=== PATIENT | female | born 1945 | race Caucasian/White ===

== ENCOUNTER → 2020-08-14 15:19 | Outpatient (BNVA) | payer MEDICARE, MEDICAID, SELFPAY | PROVIDERS: PCP Internal Medicine; Visit Provider Family Medicine Adult Medicine | DX: M47.814 Spondylosis without myelopathy or radiculopathy, thoracic region (principal); Z79.891 Long term (current) use of opiate analgesic | CPT/HCPCS: 99212 ==

== ENCOUNTER → 2020-09-23 12:47 | Outpatient (BNVA) | payer MEDICARE, MEDICAID, SELFPAY | PROVIDERS: PCP Internal Medicine; Referring Provider Internal Medicine; Visit Provider Family Medicine Adult Medicine | DX: M47.814 Spondylosis without myelopathy or radiculopathy, thoracic region (principal) | CPT/HCPCS: 99212 ==

== ENCOUNTER → 2020-10-21 13:00 | Outpatient (BNVA) | payer MEDICARE, MEDICAID, SELFPAY | PROVIDERS: PCP Internal Medicine; Visit Provider Family Medicine Adult Medicine | DX: M47.814 Spondylosis without myelopathy or radiculopathy, thoracic region (principal) | CPT/HCPCS: 99212 ==

== ENCOUNTER → 2020-12-09 14:47 | Outpatient (BNVA) | payer MEDICARE, MEDICAID, SELFPAY | PROVIDERS: PCP Internal Medicine; Visit Provider Family Medicine Adult Medicine | DX: M47.814 Spondylosis without myelopathy or radiculopathy, thoracic region (principal) | CPT/HCPCS: 99212 ==

== ENCOUNTER → 2021-01-13 12:55 | Outpatient (BNVA) | payer MEDICARE, MEDICAID, SELFPAY | PROVIDERS: PCP Internal Medicine; Visit Provider Family Medicine Adult Medicine | DX: M47.814 Spondylosis without myelopathy or radiculopathy, thoracic region (principal) | CPT/HCPCS: Q3014 ==

== ENCOUNTER → 2021-02-10 14:21 | Outpatient (BNVA) | payer MEDICARE, MEDICAID, SELFPAY | PROVIDERS: PCP Internal Medicine; Visit Provider Family Medicine Adult Medicine | DX: M47.814 Spondylosis without myelopathy or radiculopathy, thoracic region (principal); Z51.81 Encounter for therapeutic drug level monitoring | CPT/HCPCS: 99212 ==

== ENCOUNTER → 2021-02-12 13:43 | Outpatient (BNVA) | payer MEDICARE, MEDICAID, SELFPAY | PROVIDERS: PCP Internal Medicine; Visit Provider Internal Medicine Cardiovascular Disease | DX: I48.0 Paroxysmal atrial fibrillation (principal); F17.200 Nicotine dependence, unspecified, uncomplicated; Z79.899 Other long term (current) drug therapy; Z71.6 Tobacco abuse counseling | CPT/HCPCS: 93005; 99212 ==

== ENCOUNTER → 2021-02-17 14:04 | Outpatient (BNVA) | payer OTHER, MEDICAID, SELFPAY | PROVIDERS: PCP Internal Medicine; Visit Provider Family Medicine Adult Medicine | DX: Z13.89 Encounter for screening for other disorder (principal) | CPT/HCPCS: 99212 ==

== ENCOUNTER → 2021-02-26 16:55 | Outpatient (BNVA) | payer MEDICARE, MEDICAID, SELFPAY | PROVIDERS: PCP Internal Medicine; Visit Provider Family Medicine Adult Medicine | DX: M47.814 Spondylosis without myelopathy or radiculopathy, thoracic region (principal) | CPT/HCPCS: Q3014 ==

== ENCOUNTER 2021-03-04 17:30 | Outpatient (REF) | payer MEDICARE, MEDICAID, SELFPAY ==
--- NOTE | ~2021-03-04 | XR_ITS ---
EXAMINATION: XR KNEE, RIGHT CLINICAL INFORMATION: Local infection of the skin and subcutaneous tissues. COMPARISON: Right knee x-rays 05/25/2010 TECHNIQUE: Four views of the right knee. FINDINGS: Severe degenerative changes of the right knee with complete loss of medial joint space height, subchondral sclerosis, tricompartmental osteophytes and chondrocalcinosis. Tiny suprapatellar joint effusion suspected small loose body. No focal soft tissue swelling of the anterior knee. Vascular calcifications noted. XR/XR knee RT 4V IMPRESSION: -Severe degenerative changes of the right knee. -Small suprapatellar joint effusion with possible small loose body.
== END 2021-03-04 17:31 | disposition home or self-care (01) ==
LOC: HO.HMGCX 17:30
PROVIDERS: PCP Internal Medicine; Visit Provider Nurse Practitioner Family
DX: L08.9 Local infection of the skin and subcutaneous tissue, unspecified (principal)
CPT/HCPCS: 73564

== ENCOUNTER → 2021-03-18 14:56 | Outpatient (BNVA) | payer MEDICARE, MEDICAID, SELFPAY | PROVIDERS: PCP Internal Medicine; Visit Provider Nurse Practitioner Family | DX: M47.814 Spondylosis without myelopathy or radiculopathy, thoracic region (principal); M17.11 Unilateral primary osteoarthritis, right knee | CPT/HCPCS: 99212 ==

== ENCOUNTER 2021-03-30 08:18 | Outpatient (REF) | payer MEDICARE, MEDICAID, SELFPAY ==
--- NOTE | ~2021-03-30 | XR_ITS ---
EXAMINATION: XR KNEE AP STANDING CLINICAL INFORMATION: Bilateral knee pain. COMPARISON: None TECHNIQUE: AP bilateral standing view of the knees was obtained. FINDINGS: There is severe loss of medial and moderate loss of lateral compartment joint space both knees. There is chondrocalcinosis of medial and lateral menisci. No loose body seen. There is periarticular spurring in the medial compartments both knees. Mild genu varus deformity of both knees is noted slightly greater on the right side. The soft tissues are normal. XR/XR knee standing BI IMPRESSION: Severe medial and moderate lateral compartment degenerative arthritic changes both knees. Chondrocalcinosis.
== END 2021-03-30 08:19 | disposition home or self-care (01) ==
LOC: HO.HOSX 08:18
PROVIDERS: Visit Provider Orthopaedic Surgery
DX: M25.561 Pain in right knee (principal); M17.11 Unilateral primary osteoarthritis, right knee; L98.9 Disorder of the skin and subcutaneous tissue, unspecified
CPT/HCPCS: 20610; 73565; 99202; J1100

== ENCOUNTER 2021-04-09 11:12 | Outpatient (REF) | payer MEDICARE, MEDICAID, SELFPAY ==
--- NOTE | ~2021-04-09 | US_ITS ---
EXAMINATION: US COMPLETE ABDOMEN WITH LIVER ELASTOGRAPHY CLINICAL INFORMATION: Abdominal pain COMPARISON: Previous abdominal ultrasound June [address] January 2019 TECHNIQUE: Real-time imaging of the abdominal viscera. Noninvasive ultrasound liver fibrosis assessment is performed using April ElastPQ point quantification shear wave elastography (pSWE) with a C5-2 MHz transducer. Multiple elastography samples are obtained. FINDINGS: PANCREAS: Not well visualized due to bowel gas ABDOMINAL AORTA: The proximal, middle, and distal aortic segments are normal in caliber. INFERIOR VENA CAVA: Visualized portions are normal. LIVER: Normal. The liver demonstrates normal size, contour and echogenicity. No focal lesion or intrahepatic biliary duct dilatation. The right lobe measures 12.2 cm in length. The left lobe measures 7.6 cm in length. Portal flow is normal/hepatopedal Shear wave liver elastography median stiffness is 1.5 m/s (reference: normal median stiffness is 1.3 m/s or less). IQR/median stiffness to assess sampling precision is 0.05 (reference: good quality data set is IQR/median stiffness of 0.15 or less). GALLBLADDER: Normal. The gallbladder is physiologically distended without evidence of stones, sludge, polyps, wall thickening or pericholecystic fluid. COMMON BILE DUCT: Normal in caliber measuring 0.2 cm in diameter. RIGHT KIDNEY: Normal. No hydronephrosis. No renal calculi or focal parenchymal lesions. The kidney measures 9.6 cm in maximum dimension. LEFT KIDNEY: Normal. No hydronephrosis. No renal calculi or focal parenchymal lesions. The kidney measures 10.5 cm in maximum dimension. SPLEEN: Normal. The spleen measures 7.4 cm in maximum dimension. FREE FLUID: None. US/US abdomen comp w elastography IMPRESSION: 1. Impression: Limited visualization of the pancreas otherwise unremarkable exam 2. Liver elastography: Adequate liver sampling. In the absence of other known clinical signs, rules out compensated advanced chronic liver disease. REFERENCE: Society of Radiologists in Ultrasound Liver Stiffness Thresholds (2020): LIVER STIFFNESS THRESHOLDS: *Liver Stiffness equal or less than 1.3 m/s: High probability of being normal. *Liver Stiffness less than 1.7 m/s: In the absence of other known clinical signs, rules out compensated advanced chronic liver disease. *Liver Stiffness 1.7-2.1 m/s: Suggestive of compensated advanced chronic liver disease but need further test for confirmation. *Liver Stiffness over 2.1 m/s: Rules in compensated advanced chronic liver disease. *Liver Stiffness over 2.4 m/s: Suggestive of clinically significant portal hypertension. QUALITY OF DATA SET: *IQR/Median value equal or less than 0.15 implies a quality data set. *IQR/Median value over 0.15 implies a poor quality data set. SIGNIFICANT CHANGE FROM PRIOR EXAM: Significant change if liver stiffness measurement is 10% or greater from prior exam. OTHER CONSIDERATIONS: The stage of liver fibrosis may be overestimated in the setting of acute hepatitis, liver inflammation, elevated liver function tests, hepatic vascular congestion, obstructive cholestasis, non-fasting state, and infiltrative diseases such as amyloidosis and lymphoma. In some patients with NAFLD, the liver stiffness thresholds for compensated advanced chronic liver disease may be lower. In causes other than viral hepatitis and NAFLD, liver stiffness thresholds are not well established.
== END 2021-04-09 11:13 | disposition home or self-care (01) ==
LOC: HO.US 11:12
PROVIDERS: PCP Internal Medicine; Visit Provider Internal Medicine
DX: R10.9 Unspecified abdominal pain (principal)
CPT/HCPCS: 76705; 76981

== ENCOUNTER → 2021-04-21 11:11 | Outpatient (BNVA) | payer MEDICARE, MEDICAID, SELFPAY | PROVIDERS: PCP Internal Medicine; Visit Provider Family Medicine Adult Medicine | DX: M47.814 Spondylosis without myelopathy or radiculopathy, thoracic region (principal); M17.11 Unilateral primary osteoarthritis, right knee | CPT/HCPCS: 99212 ==

== ENCOUNTER → 2021-05-19 14:12 | Outpatient (BNVA) | payer MEDICARE, MEDICAID, SELFPAY | PROVIDERS: PCP Internal Medicine; Visit Provider Family Medicine Adult Medicine | DX: M47.814 Spondylosis without myelopathy or radiculopathy, thoracic region (principal); M17.11 Unilateral primary osteoarthritis, right knee | CPT/HCPCS: 99212 ==

== ENCOUNTER 2021-06-03 | Outpatient (REF) | payer MEDICARE, MEDICAID, SELFPAY ==
[2021-06-03 12:10] LABS: Hematocrit 44.7 % (37-47); Hemoglobin 14.5 g/dl (12.0-16.0); Mean Corpuscular HGB Conc 32.4 g/dl (31.0-35.0); Mean Corpuscular Hemoglobin 30.3 pg (27.0-33.0); Mean Corpuscular Volume 93.5 fL (80-98); Mean Platelet Volume 11.3 fL (9.4-12.3); Platelet Count 241 X10*3/uL (160-400); Red Blood Count 4.78 X10*6/uL (4.20-5.50); Red Cell Distribution Width 12.3 % (11.0-16.0); White Blood Count 9.1 X10*3/uL (4.8-10.8)
[2021-06-03 12:49] LABS: Alanine Aminotransferase 14 U/L (0-31); Albumin Level 4.1 g/dL (3.5-5.0); Alkaline Phosphatase 95 U/L (39-117); Anion Gap 13 (12-20); Aspartate Amino Transferase 20 U/L (5-31); Bilirubin Total 0.5 mg/dL (0.0-1.0); Blood Urea Nitrogen 18 mg/dL (9-16); Calcium 9.7 mg/dL (8.4-10.2); Carbon Dioxide 27 mmol/L (22-29); Chloride 104 mmol/L (96-108); Cholesterol 142 mg/dL; Estimated Glomerular Filt Rate 54; Glucose Fasting 105 mg/dL (60-99); HDL Cholesterol 55 mg/dL; LDL Cholesterol Calculated 74 mg/dl; Lipase 15 U/L (8-78); Potassium 4.7 mmol/L (3.3-5.1); Sodium 139 mmol/L (135-145); Total Protein 6.8 g/dL (6.5-8.0); Triglycerides 67 mg/dL
== END 2021-06-03 00:01 ==
LOC: HO.LAB
PROVIDERS: Absent Provider Internal Medicine Cardiovascular Disease; PCP Internal Medicine; Visit Provider Internal Medicine
DX: E78.5 Hyperlipidemia, unspecified (principal); R10.9 Unspecified abdominal pain; I48.0 Paroxysmal atrial fibrillation; M17.11 Unilateral primary osteoarthritis, right knee
CPT/HCPCS: 36415; 80053; 80061; 83690; 85027

== ENCOUNTER → 2021-06-09 13:46 | Outpatient (BNVA) | payer MEDICARE, MEDICAID, SELFPAY | PROVIDERS: PCP Internal Medicine; Visit Provider Internal Medicine | DX: J44.9 Chronic obstructive pulmonary disease, unspecified (principal); F17.210 Nicotine dependence, cigarettes, uncomplicated | CPT/HCPCS: 99212 ==

== ENCOUNTER 2021-06-14 21:39 | Emergency (ER) | payer MEDICARE, MEDICAID, SELFPAY ==
--- NOTE | ~2021-06-14 | XR_ITS ---
EXAMINATION: XR ELBOW, RIGHT CLINICAL INFORMATION: Fall COMPARISON: None TECHNIQUE: Four views of the right elbow. XR/XR elbow RT min 3V FINDINGS/IMPRESSION: There is extensive destruction, disorganization and debris of the elbow joint with markedly abnormal lateral humeral epicondyles, proximal ulna and proximal radius with bulky marginal osteophytes and extensive heterotopic ossification. Given the extent of the disorganization and debris, possibility of an acute fracture would be difficult to exclude. Joint effusion present. Extensive soft tissue swelling about the elbow joint.
[2021-06-14 21:59] VITALS: BP 131/85; PULSE 51; RESP 16; TEMP 37.3; O2SAT 97; BMI 20.5
--- NOTE | 2021-06-14 22:21 | ED_ITS ---
HPI - Extremity Problem General Chief complaint: Extremity Injury, Upper Stated complaint: arm inj Time Seen by Provider: 06/14/21 22:07 Source: patient and family Mode of arrival: ambulatory Limitations: no limitations History of Present Illness HPI Narrative: Apparently patient fell while going up stairs hitting her right elbow to the railing 2 days ago since then having crease pain and swelling with the superficial laceration at the elbow. Her daughter brought to the ER for increased swelling and pain patient takes oxycodone at home for chronic arthritis patient does not remember whether she had right elbow fracture before or not but not been operated and it was functional without any limitation of range of movement no other injuries no head injury no loss of conscious patient not on any blood thinners Related Data Home Medications Medication Instructions Recorded Confirmed hydrocortisone 2.5 % topical cream applic TOPICAL 08/14/20 05/21/21 ketoconazole 2 % shampoo TOPICAL 08/14/20 05/21/21 flecainide 100 mg tablet 100 mg PO Q12H tab 02/12/21 05/21/21 hydroxyzine HCl 25 mg tablet 25 mg PO PRN tab 02/12/21 05/21/21 propranolol 60 mg capsule,24 60 mg PO DAILY cap 02/12/21 05/21/21 hr,extended release tiotropium bromide 18 mcg capsule 1 cap INHALATION DAILY 03/18/21 05/21/21 with inhalation device Previous Rx's Medication Instructions Recorded naloxone 4 mg/actuation nasal 4 mg INTRANASAL Q2M 1 Days #2 ea 12/09/20 spray (Narcan) fluticasone furoate 100 1 ea INHALATION DAILY #180 ea 04/08/21 mcg-vilanterol 25 mcg/dose inhalation powder (Breo Ellipta) mupirocin 2 % topical ointment 1 appl TOPICAL TID 14 Days #15 g 05/18/21 oxycodone 10 mg tablet 10 mg PO Q6H PRN 30 Days #120 tab 05/19/21 alprazolam 0.5 mg tablet 0.5 mg PO TID PRN 30 Days #90 tab 05/29/21 cephalexin 500 mg capsule 500 mg PO QID 10 Days #40 cap 06/14/21 Allergies Allergy/AdvReac Type Severity Reaction Status Date / Time succinylcholine Allergy Severe EXCESSIVE Verified 06/14/21 22:05 [SUCCINYLCHOLINE] PARALYSIS tramadol Allergy Intermediate diarrhea, Verified 06/14/21 22:05 upset stomach cat dander [CATS] Allergy Mild UNKNOWN Verified 06/14/21 22:05 dog dander [DOGS] Allergy Mild UNKNOWN Verified 06/14/21 22:05 pollen extracts [POLLEN] Allergy Mild UNKNOWN Verified 06/14/21 22:05 DUST Allergy Mild UNKNOWN Uncoded 06/14/21 22:05 Review of Systems Review of Systems: Yes all other systems are reviewed and are negative [facility] Past Medical History Medical History Abdominal pain Anxiety COPD (chronic obstructive pulmonary disease) COPD exacerbation Knee pain Left knee pain Neurodermatitis Osteoarthritis of thoracic spine Paroxysmal atrial fibrillation Scalp abscess Skin lesion Smoker Vaginal discharge Surgical History History of bilateral cataract extraction History of ectopic History of hip replacement History of nasal surgery Mammogram declined Family History Family History Father No problems noted. Mother No problems noted. Social History Social History Housing: Apartment Alcohol intake: unknown Patient Tobacco Use Status: Current everyday Tobacco user Tobacco use type: Cigarette Cigarettes Per Day: 8 e-Cigarette/Vaping Use: Never Used Second Hand Smoke Exposure: No Use of substances other than those prescribed or required for medical reasons: Unknown Advance Directives: No Advance Directives Information Provided: No service: No Current occupational status: retired and disabled Physical Exam Vital Signs: Vital Signs: Last Vital Signs Temp 99.1 F 06/14/21 21:59 Pulse 51 06/14/21 21:59 Resp 16 06/14/21 21:59 BP 131/85 06/14/21 21:59 Pulse Ox 97 06/14/21 21:59 Body Mass Index 20.5 Const: General: in distress mild Nutritional Appearance: thin Orientation/consciousness: patient oriented x3 HENMT: Head: Yes normocephalic and Yes atraumatic Ears: hearing grossly n ormal bilaterally Eyes: General: appearance normal, both eyes and all related structures Chest: Chest palpation & inspection: normal inspection of the chest and normal palpation of entire chest wall Resp: Effort & Inspection: normal respiratory effort Auscultation: clear to auscultation bilaterally Cardio: Rate: regular rate Rhythm: regular rhythm Heart sounds: S1 normal heart sound present and S2 normal heart sound present Peripheral pulses: Peripheral pulses 2+ throughout GI: Inspection: Yes normal to inspection Palpation (GI): Soft to palpation and nontender Back/Spine/Pelvis: Cervical Spine: normal cervical lordosis and cervical ROM normal Thoracic/Lumbar Spine: No thoracic spinal tenderness and No lumbar spinal tenderness Skin: General skin exam: no rashes or lesions noted Neuro: General: patient oriented x3, gait normal and no focal motor deficits Extrem: Shoulder/upper arm images: 1. Gross deformity of right elbow joint with swelling and slight erythema painful flexion and extension neurovascular intact 2. Flap laceration right elbow 5 cm MDM - Extremity (Nontraumatic) MDM Narrative Medical decision making narrative: Patient with right elbow fracture with extensive destruction drowsy denies and debris of the elbow patient denies any s ignificant pain prior to the fall and according to her this injury seems to be new . Case discussed with orthopedic PA who discussed the case with Dr. Henson who saw the x-ray according to him patient was not needed surgical intervention at this time will follow-up as outpatient posterior arm splint was applied and patient discharged home Lab Data Attestation: I reviewed the patient's lab results. Result diagrams: 06/14/21 22:48 06/14/21 22:48 Labs: Lab Results 06/14/21 06/14/21 06/14/21 Range/Units 22:48 22:48 22:48 WBC 12.5 H (4.8-10.8) X10*3/uL RBC 4.78 (4.20-5.50) X10*6/uL Hgb 14.6 (12.0-16.0) g/dl Hct 43.1 (37-47) % MCV 90.2 (80-98) fL MCH 30.5 (27.0-33.0) pg MCHC 33.9 (31.0-35.0) g/dl RDW 12.2 (11.0-16.0) % Plt Count 191 (160-400) X10*3/uL MPV 10.7 (9.4-12.3) fL Immature Gran % (Auto) 0.6 H (0.0-0.4) % Neut % (Auto) 68.0 (45-73) % Lymph % (Auto) 12.8 L (20-40) % [place] % (Auto) 18.3 H (2-11) % Eos % (Auto) 0.1 (0-4) % Baso % (Auto) 0.2 (0-2) % Lymph # (Auto) 1.6 (1.2-4.9) X10*3/uL [place] # (Auto) 2.3 H (0.1-1.2) X10*3/uL Eos # (Auto) 0.0 (0.0-0.4) X10*3/uL Baso # (Auto) 0.0 (0.0-0.2) X10*3/uL Abs Immat Gran (auto) 0.07 H (0.00-0.03) X10*3/uL Absolute Neuts (auto) 8.5 H (2.0-8.3) X10*3/uL Absolute Nucleated RBC 0.000 (0.0-0.012) X10*3/uL Nucleated RBC % (auto) 0.0 (0.0-0.2) /100WBC Smear Tech's Comments VERIFIED PT 22.4 H (9.9-13.0) SEC INR 1.9 H (0.9-1.1) APTT 41.0 H (24.1-38.0) SEC Sodium 130 L (135-145) mmol/L Potassium 3.7 D (3.3-5.1) mmol/L Chloride 93 L (96-108) mmol/L Carbon Dioxide 25 (22-29) mmol/L Anion Gap 16 (12-20) BUN 18 H (9-16) mg/dL Creatinine 0.79 (0.5-1.4) mg/dL Estim Creat Clear Calc 55.0 Estimated GFR > 60 Random Glucose 80 (60-115) mg/dL Calcium 9.5 (8.4-10.2) mg/dL Imaging Data Right elbow: Radiologist's impression: Patient: Yamileth Sandoval MR#: [id number] : 1945 Acct:[id number] Age/Sex: 75 / F ADM Date: 06/14/21 Loc: HO.ED Attending Dr: Ordering Physician: Byron Conte MD Date of Service: 06/14/21 Procedure(s): XR elbow RT min 3V Accession Number(s): [id number] cc: Byron Conte MD~ EXAMINATION: XR ELBOW, RIGHT CLINICAL INFORMATION: Fall? COMPARISON: None? TECHNIQUE: Four views of the right elbow. XR/XR elbow RT min 3V FINDINGS/IMPRESSION: There is extensive destruction, disorganization and debris of the elbow joint with markedly abnormal lateral humeral epicondyles, proximal ulna and proximal radius with bulky marginal osteophytes and extensive heterotopic ossification. Given the extent of the disorganization and debris, possibility of an acute fracture would be difficult to exclude. Joint effusion present. Extensive soft tissue swelling about the elbow joint.? ? Dictated By: COURT ORTIZ MD Signed By: <Electronically signed by COURT Gilbert Procedures Laceration Laceration 1: Site: upper extremity Side (If applicable): right Size (cm): 5 Description: flap Depth: simple, single layer Pre-repair: deep structures intact Skin layer closed with: other (Steri-Strips) Orthopedic Splinting/Casting Injury #1: Side: right Upper Extremity Injury Location: elbow Upper Extremity Immobilizer: posterior splint Discharge Plan Discharge Clinical Impression: Elbow fracture, right Patient Disposition: Home, Self-Care Instructions: Elbow Fracture (ED) Additional Instructions: Keep your right arm in splint as provided Pain medication as advised See orthopedics in 2 -3 days for further evaluation Take antibiotic for wound infection Prescriptions: New cephalexin 500 mg capsule 500 mg PO QID 10 Days Qty: 40 RF: 0 No Action fluticasone furoate-vilanterol [Breo Ellipta] 100-25 mcg/dose blister with device 1 ea inhalation DAILY Qty: 180 RF: 3 mupirocin 2 % ointment 1 appl topical TID 14 Days Qty: 15 RF: 2 alprazolam 0.5 mg tablet 0.5 mg PO TID PRN (Reason: anxiety) 30 Days Qty: 90 RF: 0 hydrocortisone 2.5 % cream topical RF: 0 ketoconazole 2 % shampoo topical RF: 0 flecainide 100 mg tablet 100 mg PO Q12H RF: 0 hydroxyzine HCl 25 mg tablet 25 mg PO PRNRF: 0 propranolol 60 mg capsule,extended release 24 hr 60 mg PO DAILY RF: 0 tiotropium bromide 18 mcg capsule, w/inhalation device 1 cap inhalation DAILY RF: 0 Narcan 4 mg/actuation spray,non-aerosol 4 mg intranasal Q2M 1 Days Qty: 2 RF: 1 oxycodone 10 mg tablet 10 mg PO Q6H PRN (Reason: pain) 30 Days Qty: 120 RF: 0 Referrals: Zev Henson MD [Physician] - 3 days Interventions: ED Discharge Assessment Last Done: 06/15/21 00:03 Discharge Date/Time: 06/15/21 00:13
--- NOTE | 2021-06-14 22:33 | ECG_ITS ---
Test Reason : AFIB Blood Pressure : / mmHG Vent. Rate : 058 BPM Atrial Rate : 058 BPM P-R Int : 172 ms QRS Dur : 104 ms QT Int : 490 ms P-R-T Axes : 068 052 074 degrees QTc Int : 481 ms Sinus bradycardia Biatrial enlargement Nonspecific ST abnormality Abnormal ECG When compared with ECG of 20-AUG-2019 20:32, Sinus bradycardia has replaced Atrial flutter Heart rate has decreased Referred By: Byron Conte Electronically Signed By:VINCENZO FINN
[2021-06-14 22:53] LABS: Basophils Percent Auto 0.2 % (0-2); Eosinophils Percent Auto 0.1 % (0-4); Hematocrit 43.1 % (37-47); Hemoglobin 14.6 g/dl (12.0-16.0); Imm Gran Abs Auto 0.07 X10*3/uL (0.00-0.03); Imm Gran Pct Auto 0.6 % (0.0-0.4); Lymphocytes Absolute Auto 1.6 X10*3/uL (1.2-4.9); Lymphocytes Percent Auto 12.8 % (20-40); MANUAL DIFF FLAG SCAN; Mean Corpuscular HGB Conc 33.9 g/dl (31.0-35.0); Mean Corpuscular Hemoglobin 30.5 pg (27.0-33.0); Mean Corpuscular Volume 90.2 fL (80-98); Mean Platelet Volume 10.7 fL (9.4-12.3); Monocytes Absolute Auto 2.3 X10*3/uL (0.1-1.2); Monocytes Percent Auto 18.3 % (2-11); Neutrophils Absolute Auto 8.5 X10*3/uL (2.0-8.3); Platelet Count 191 X10*3/uL (160-400); Red Blood Count 4.78 X10*6/uL (4.20-5.50); Red Cell Distribution Width 12.2 % (11.0-16.0); SCAN SMEAR FLAG 1; White Blood Count 12.5 X10*3/uL (4.8-10.8)
[2021-06-14 22:59] LABS: INTERNATIONAL NORM RATIO 1.9 (0.9-1.1); Prothrombin Time 22.4 SEC (9.9-13.0)
[2021-06-14 23:10] LABS: SLIDE REVIEW VERIFIED
[2021-06-14] MEDS: oxyCODONE HCl Immed Release 5 MG TABLET 10 MG PO (23:19)
[2021-06-14] MEDS: cephALEXin 500 MG CAPSULE PO (23:20)
[2021-06-14 23:21] LABS: Anion Gap 16 (12-20); Blood Urea Nitrogen 18 mg/dL (9-16); Calcium 9.5 mg/dL (8.4-10.2); Carbon Dioxide 25 mmol/L (22-29); Chloride 93 mmol/L (96-108); Estimated Glomerular Filt Rate > 60; Glucose Random 80 mg/dL (60-115); Potassium 3.7 mmol/L (3.3-5.1); Sodium 130 mmol/L (135-145)
== END 2021-06-15 00:13 | disposition home or self-care (01) ==
PROVIDERS: Emergency Provider Internal Medicine; PCP Internal Medicine
DX: S42.401A Unspecified fracture of lower end of right humerus, initial encounter for closed fracture (principal); S51.011A Laceration without foreign body of right elbow, initial encounter; M25.521 Pain in right elbow; W01.0XXA Fall on same level from slipping, tripping and stumbling without subsequent striking against object, initial encounter; Y93.9 Activity, unspecified; Y92.9 Unspecified place or not applicable; Y99.9 Unspecified external cause status
CPT/HCPCS: 12002; 29105; 36415; 73080; 80048; 85025; 85610; 85730; 93005; 99284

== ENCOUNTER → 2021-06-19 13:38 | Outpatient (BNVA) | payer MEDICARE, MEDICAID, SELFPAY | PROVIDERS: PCP Internal Medicine; Visit Provider Physician Assistant | DX: S50.01XA Contusion of right elbow, initial encounter (principal); S51.011A Laceration without foreign body of right elbow, initial encounter | CPT/HCPCS: 99202 ==

== ENCOUNTER → 2021-06-23 13:27 | Outpatient (BNVA) | payer MEDICARE, MEDICAID, SELFPAY | PROVIDERS: PCP Internal Medicine; Visit Provider Nurse Practitioner Family | DX: Z51.81 Encounter for therapeutic drug level monitoring (principal); S50.01XA Contusion of right elbow, initial encounter; M17.11 Unilateral primary osteoarthritis, right knee; M47.814 Spondylosis without myelopathy or radiculopathy, thoracic region | CPT/HCPCS: 99212 ==

== ENCOUNTER → 2021-06-26 13:34 | Outpatient (BNVA) | payer MEDICARE, MEDICAID, SELFPAY | PROVIDERS: PCP Internal Medicine; Visit Provider Physician Assistant | DX: S51.011A Laceration without foreign body of right elbow, initial encounter (principal); S50.01XA Contusion of right elbow, initial encounter | CPT/HCPCS: 99212 ==

== ENCOUNTER 2021-06-29 14:24 | Outpatient (RCR) | payer MEDICARE, MEDICAID, SELFPAY | END 2021-07-01 15:47 | disposition home or self-care (01) | LOC: HO.WCC 14:24 | PROVIDERS: PCP Internal Medicine; Visit Provider Physician Assistant | DX: Q85.00 Neurofibromatosis, unspecified (principal); F17.210 Nicotine dependence, cigarettes, uncomplicated | CPT/HCPCS: 99212 ==

== ENCOUNTER → 2021-07-14 10:31 | Outpatient (BNVA) | payer MEDICARE, SELFPAY | PROVIDERS: PCP Internal Medicine; Visit Provider Internal Medicine | DX: J44.1 Chronic obstructive pulmonary disease with (acute) exacerbation (principal); F17.200 Nicotine dependence, unspecified, uncomplicated | CPT/HCPCS: 99212 ==

== ENCOUNTER → 2021-07-22 11:23 | Outpatient (BNVA) | payer MEDICARE, SELFPAY | PROVIDERS: PCP Internal Medicine; Visit Provider Anesthesiology | DX: Z51.81 Encounter for therapeutic drug level monitoring (principal); M47.814 Spondylosis without myelopathy or radiculopathy, thoracic region; M17.11 Unilateral primary osteoarthritis, right knee | CPT/HCPCS: 99212 ==

== ENCOUNTER 2021-08-05 10:12 | Outpatient (REF) | payer MEDICARE, SELFPAY ==
[2021-08-05 11:59] LABS: MANUAL DIFF FLAG NO
[2021-08-05 12:11] LABS: INTERNATIONAL NORM RATIO 1.3 (0.9-1.1); Prothrombin Time 15.3 SEC (9.9-13.0)
[2021-08-05 12:16] LABS: Basophils Percent Auto 0.5 % (0-2); Eosinophils Absolute Auto 0.2 X10*3/uL (0.0-0.4); Eosinophils Percent Auto 2.8 % (0-4); Hematocrit 41.3 % (37-47); Hemoglobin 13.5 g/dl (12.0-16.0); Imm Gran Abs Auto 0.01 X10*3/uL (0.00-0.03); Imm Gran Pct Auto 0.2 % (0.0-0.4); Lymphocytes Absolute Auto 1.9 X10*3/uL (1.2-4.9); Lymphocytes Percent Auto 32.2 % (20-40); Mean Corpuscular HGB Conc 32.7 g/dl (31.0-35.0); Mean Corpuscular Hemoglobin 29.5 pg (27.0-33.0); Mean Corpuscular Volume 90.2 fL (80-98); Mean Platelet Volume 10.5 fL (9.4-12.3); Monocytes Absolute Auto 0.7 X10*3/uL (0.1-1.2); Monocytes Percent Auto 11.4 % (2-11); Neutrophils Absolute Auto 3.1 X10*3/uL (2.0-8.3); Neutrophils Percent Auto 52.9 % (45-73); Platelet Count 247 X10*3/uL (160-400); Red Blood Count 4.58 X10*6/uL (4.20-5.50); Red Cell Distribution Width 12.4 % (11.0-16.0); White Blood Count 5.8 X10*3/uL (4.8-10.8)
[2021-08-05 12:47] LABS: Alanine Aminotransferase 8 U/L (0-31); Alkaline Phosphatase 102 U/L (39-117); Anion Gap 13 (12-20); Aspartate Amino Transferase 16 U/L (5-31); Bilirubin Direct 0.2 mg/dL (0.0-0.5); Bilirubin Total 0.5 mg/dL (0.0-1.0); Blood Urea Nitrogen 15 mg/dL (9-16); Calcium 9.5 mg/dL (8.4-10.2); Carbon Dioxide 26 mmol/L (22-29); Chloride 105 mmol/L (96-108); Estimated Glomerular Filt Rate > 60; Glucose Random 93 mg/dL (60-115); Hepatitis A Antibody IgG REACTIVE (Nonreactive); Potassium 4.1 mmol/L (3.3-5.1); Sodium 140 mmol/L (135-145); Total Protein 6.7 g/dL (6.5-8.0); ~Hepatitis A Antibody IgG 1.53 S/CO (0.00-0.99)
[2021-08-06 04:41] LABS: HBsAGNum1 1.26 S/CO (0.00-0.99); HIV AB/AG Nonreactive (Nonreactive); HIV Num 1 0.19 S/CO (0.00-0.99)
[2021-08-06 04:53] LABS: HBS Num1 6.93 mIU/mL (0-7.99); ~Hepatitis B Surface Antibody NONREACTIVE (Nonreactive)
[2021-08-06 05:50] LABS: HBsAGNum2 Nonreactive; HBsAGNum3 Nonreactive; Hepatitis B Surface Antigen NEGATIVE (Negative)
[2021-08-07 12:16] LABS: HCV Log PCR <1.18 NOT DETECTED Log IU/mL (NOT DETECTED); HepC Viral Load <15 NOT DETECTED IU/mL (NOT DETECTED)
[2021-08-08 13:16] LABS: TS Negative Control Passed; TS Panel A 0; TS Panel B 0; TS Positive Control Passed; TSpotTB Negative (SeeBelow)
[2021-08-12 01:47] LABS: FIB-ALT 6 U/L (6-29); FIB-Alpha-2-Macroglobulin 343 mg/dL (106-279); FIB-Apolipoprotein A1 138 mg/dL (101-198); FIB-GGT 7 U/L (3-65); FIB-Haptoglobin 96 mg/dL (43-212); FIB-Total Bilirubin 0.4 mg/dL (0.2-1.2); Liver Fibrosis Score 0.42; Liver Fibrosis Stage F1-F2; Nec Inflam Act Grade A0; Nec Inflam Act Score 0.01
== END 2021-08-05 10:13 | disposition home or self-care (01) ==
LOC: HO.LAB 10:12
PROVIDERS: Visit Provider Internal Medicine
DX: F11.90 Opioid use, unspecified, uncomplicated (principal); Z51.81 Encounter for therapeutic drug level monitoring
CPT/HCPCS: 36415; 80048; 80076; 80305; 81596; 85025; 85610; 86481; 86706; 86708; 87340; 87389; 87522; 99202

== ENCOUNTER → 2021-08-12 16:43 | Outpatient (BNVA) | payer MEDICARE, SELFPAY | PROVIDERS: Visit Provider Anesthesiology ==

== ENCOUNTER 2021-08-17 13:26 | Outpatient (REF) | payer MEDICARE, SELFPAY ==
[2021-08-17 15:43] LABS: Alanine Aminotransferase 10 U/L (0-31); Albumin Level 4.1 g/dL (3.5-5.0); Alkaline Phosphatase 102 U/L (39-117); Aspartate Amino Transferase 21 U/L (5-31); Bilirubin Direct 0.3 mg/dL (0.0-0.5); Bilirubin Total 0.6 mg/dL (0.0-1.0); Total Protein 6.6 g/dL (6.5-8.0)
== END 2021-08-17 13:27 | disposition home or self-care (01) ==
LOC: HO.LAB 13:26
PROVIDERS: PCP Internal Medicine; Visit Provider Internal Medicine
DX: F11.90 Opioid use, unspecified, uncomplicated (principal); Z79.899 Other long term (current) drug therapy
CPT/HCPCS: 36415; 80076; 80305; 99212

== ENCOUNTER → 2021-08-24 13:22 | Outpatient (BNVA) | payer MEDICARE, SELFPAY | PROVIDERS: PCP Internal Medicine; Visit Provider Internal Medicine | DX: Z51.81 Encounter for therapeutic drug level monitoring (principal); F11.90 Opioid use, unspecified, uncomplicated | CPT/HCPCS: 80305; 99212 ==

== ENCOUNTER → 2021-08-31 13:19 | Outpatient (BNVA) | payer MEDICARE, SELFPAY | PROVIDERS: PCP Internal Medicine; Visit Provider Internal Medicine | DX: F11.20 Opioid dependence, uncomplicated (principal); Z51.81 Encounter for therapeutic drug level monitoring; Z79.899 Other long term (current) drug therapy | CPT/HCPCS: 80305; 99212 ==

== ENCOUNTER → 2021-09-08 14:16 | Outpatient (BNVA) | payer MEDICARE, SELFPAY | PROVIDERS: Visit Provider Internal Medicine | DX: F11.20 Opioid dependence, uncomplicated (principal) | CPT/HCPCS: 80305; 99212 ==

== ENCOUNTER → 2021-09-15 13:36 | Outpatient (BNVA) | payer MEDICARE, SELFPAY | PROVIDERS: Visit Provider Internal Medicine | DX: Z51.81 Encounter for therapeutic drug level monitoring (principal); F11.90 Opioid use, unspecified, uncomplicated | CPT/HCPCS: 80305; 99212 ==

== ENCOUNTER → 2021-09-23 13:15 | Outpatient (BNVA) | payer MEDICARE, SELFPAY | PROVIDERS: Visit Provider Internal Medicine | DX: Z51.81 Encounter for therapeutic drug level monitoring (principal); F11.20 Opioid dependence, uncomplicated | CPT/HCPCS: 80305; 99212 ==

== ENCOUNTER → 2021-09-30 10:42 | Outpatient (BNVA) | payer MEDICARE, SELFPAY | PROVIDERS: Visit Provider Internal Medicine | DX: Z51.81 Encounter for therapeutic drug level monitoring (principal); F11.20 Opioid dependence, uncomplicated | CPT/HCPCS: 80305; 99212 ==

== ENCOUNTER → 2021-10-12 10:40 | Outpatient (BNVA) | payer MEDICARE, SELFPAY | PROVIDERS: PCP Internal Medicine; Visit Provider Internal Medicine | DX: J44.9 Chronic obstructive pulmonary disease, unspecified (principal); F17.210 Nicotine dependence, cigarettes, uncomplicated | CPT/HCPCS: 99212 ==

== ENCOUNTER 2021-12-25 20:54 | Emergency (ER) | payer MEDICARE, SELFPAY ==
--- NOTE | ~2021-12-25 | XR_ITS ---
EXAMINATION: XR CHEST CLINICAL INFORMATION: Hypertension, pacemaker placement COMPARISON: 08/30/2019 TECHNIQUE: Frontal view of the chest was obtained. FINDINGS: Left-sided pacemaker lead tips overlie the right atrium and right ventricle. Lung volumes are symmetric. Mild streaky retrocardiac left basilar opacity favors atelectasis or scarring. No additional consolidation is seen. No evidence of pneumothorax, pleural effusion, or pulmonary edema. Cardiac size is within normal limits. Calcification is present at the aortic arch. Redemonstrated old left clavicular fracture. Degenerative changes are noted in the spine. XR/XR chest 1V IMPRESSION: Left-sided pacemaker lead tips extend to the region of the right atrium and right ventricle. Minimal streaky left basilar atelectasis versus scarring.
--- NOTE | 2021-12-25 22:37 | ECG_ITS ---
Test Reason : HYPERTENSION Blood Pressure : / mmHG Vent. Rate : 091 BPM Atrial Rate : 091 BPM P-R Int : 202 ms QRS Dur : 094 ms QT Int : 398 ms P-R-T Axes : 077 084 073 degrees QTc Int : 489 ms Normal sinus rhythm Biatrial enlargement Left ventricular hypertrophy with repolarization abnormality ( Yuan product ) Abnormal ECG When compared with ECG of 14-JUN-2021 22:41, Vent. rate has increased BY 33 BPM Referred By: Generic ED Physician Electronically Signed By:AXEL ARMSTRONG MD
[2021-12-25 22:38] VITALS: BP 209/104; PULSE 84; RESP 18; TEMP 37; O2SAT 98; BMI 18.6
[2021-12-25 23:54] VITALS: BP 175/112; PULSE 82; RESP 16; TEMP 36.9; O2SAT 98
--- NOTE | 2021-12-26 00:13 | ED_ITS ---
HPI - General Adult General Chief complaint: General Medical Stated complaint: High BP Time Seen by Provider: 12/25/21 23:57 Source: patient and family Mode of arrival: ambulatory Limitations: no limitations History of Present Illness HPI narrative: patient comes to the emergency room complaining of feeling yucky . Patient denies chest pain, no abdominal pain, no shortness of breath, no nausea vomiting or diarrhea. Patient had recently a pacemaker placed. Patient states that she is supposed to be taking hydrochlorothiazide and hydralazine for her blood pressure. She is unsure if she took hydrochlorothiazide today. Patient states that she feels anxious and thinks that is what is making her feel weird. Patient has no pain. Patient states that she has further med tightest, she has a new lesion under her left eye in the cheek. Patient has been using mupirocin. Related Data Home Medications Medication Instructions Recorded Confirmed flecainide 100 mg tablet 100 mg PO Q12H tab 02/12/21 12/24/21 hydroxyzine HCl 25 mg tablet 25 mg PO PRN tab 02/12/21 12/24/21 propranolol 60 mg capsule,24 60 mg PO DAILY cap 02/12/21 12/24/21 hr,extended release rivaroxaban 20 mg tablet (Xarelto) 20 mg PO DAILY 07/14/21 12/24/21 hydralazine 25 mg tablet 25 mg PO TID 12/10/21 12/24/21 Previous Rx's Medication Instructions Recorded naloxone 4 mg/actuation nasal 4 mg INTRANASAL Q2M 1 Days #2 ea 12/09/20 spray (Narcan) fluticasone furoate 100 1 ea INHALATION DAILY #180 ea 04/08/21 mcg-vilanterol 25 mcg/dose inhalation powder (Breo Ellipta) tiotropium bromide 18 mcg capsule 1 cap INHALATION DAILY 30 Days #30 07/13/21 with inhalation device inh mupirocin 2 % topical ointment 1 appl TOPICAL TID 14 Days #15 g 12/10/21 alprazolam 0.5 mg tablet 0.5 mg PO TID PRN 30 Days #90 tab 12/14/21 meloxicam 15 mg tablet 15 mg PO DAILY 30 Days #30 tab 12/16/21 hydrochlorothiazide 12.5 mg tablet 12.5 mg PO DAILY #30 tab 12/24/21 ketoconazole 2 % shampoo 1 appl TOPICAL 2XW #120 ml 12/24/21 oxycodone 5 mg tablet 5 mg PO Q8H PRN #4 tab 12/24/21 triamcinolone acetonide 0.5 % 1 appl TOPICAL BID #15 g 12/24/21 topical cream Allergies Allergy/AdvReac Type Severity Reaction Status Date / Time succinylcholine Allergy Severe EXCESSIVE Verified 12/25/21 22:38 [SUCCINYLCHOLINE] PARALYSIS tramadol Allergy Intermediate diarrhea, Verified 12/25/21 22:38 upset stomach cat dander [CATS] Allergy Mild UNKNOWN Verified 12/25/21 22:38 dog dander [DOGS] Allergy Mild UNKNOWN Verified 12/25/21 22:38 pollen extracts [POLLEN] Allergy Mild UNKNOWN Verified 12/25/21 22:38 buprenorphine [From Suboxone] AdvReac Severe Hives Verified 12/25/21 22:38 naloxone [From Suboxone] AdvReac Severe Hives Verified 12/25/21 22:38 DUST Allergy Mild UNKNOWN Uncoded 12/25/21 22:38 Review of Systems Review of Systems: Constitutional : No Weight loss, No Fever, No Chills, No Night Sweats, No Fatigue, No Malaise , feeling yucky ENT/Mouth : No Hearing loss, No Ear Pain, No Nasal Congestion, No Sinus Pain, No Hoarseness, No sore throat, No Rhinorrhea, No Swallowing Difficulty Eyes: No Eye Pain, No Swelling, No Redness, No Foreign Body, No Discharge, No Vision Changes Cardiovascular : No Chest Pain, No SOB, No Dyspnea on Exertion, No Orthopnea, No Edema, No Palpitations Respiratory : No Cough, No Sputum, No Wheezing, No Smoke Exposure, No Dyspnea Gastrointestinal : No Nausea, No Vomiting, No Diarrhea, No Constipation, No abdominal Pain, No Hematochezia, No Melena Genitourinary : no irregular bleeding, No Dysuria, No Urinary Frequency, No Hematuria, No Urinary Incontinence, No Urgency, No Flank Pain, No Urinary Flow Changes, No Hesitancy Musculoskeletal : No joint pain, No Myalgias, No Joint Swelling Skin : chronic skin lesions in the forehead / neurodermatitis, new lesion in the left cheek below the left eye Neuro : No Weakness, No Numbness, No Paresthesias, No Loss of Consciousness, No Dizziness, No Headache Psych : No Anxiety/Panic, No Depression, No SI/HI/AH/VH, No Social Issues, Heme/Lymph: No Bruising, No Bleeding,No Lymphadenopathy Endocrine : No Polyuria, No Polydipsia, No Temperature Intolerance [facility] Past Medical History Medical History Abdominal pain Anxiety COPD (chronic obstructive pulmonary disease) COPD exacerbation COPD with acute exacerbation Knee pain Left knee pain Neurodermatitis Opioid use disorder Osteoarthritis of thoracic spine Paroxysmal atrial fibrillation Scalp abscess Sinus pause Skin lesion Smoker Vaginal discharge Surgical History History of bilateral cataract extraction History of ectopic History of hip replacement History of nasal surgery Mammogram declined Family History Family History Father No problems noted. Mother No problems noted. Social History Social History Housing: Apartment Alcohol intake: former Patient Tobacco Use Status: Current everyday Tobacco user Tobacco use type: Cigarette Cigarettes Per Day: 8 e-Cigarette/Vaping Use: Never Used Second Hand Smoke Exposure: No Advance Directives: No Advance Directives Information Provided: Yes service: No Current occupational status: retired and disabled Physical Exam ED Vital Signs: Vital Signs - 24 hr 12/25/21 22:38 12/25/21 23:54 Temperature 98.6 F 98.4 F Pulse Rate 84 82 Respiratory Rate 18 16 Blood Pressure 209/104 H 175/112 H Pulse Oximetry 98 98 BMI result Body Mass Index 18.6 Const Other: Appearance: Alert. Oriented X3. No acute distress. anxious Eyes: Pupils equal, round and reactive to light. ENT: Pharynx normal. Neck: Normal inspection. Neck supple. No lymph nodes noted. No crepitus CVS: Normal heart rate and rhythm. Pulses normal. Normal S1 and S2, pacemaker placed on the left side of the chest Respiratory: No respiratory distress. Breath sounds normal. No Wheezing. No rales Abdomen: Soft and nontender. No rigidity. No distention. Skin: Skin warm and dry. 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 New eschar on the left side of the cheek below the left eye, a bit crusty, no oozing, no blood Extremities: No lower extremity edema. No Lacerations. No Rash Neuro: Oriented X 3. No motor deficit. No sensory deficit. Moving all extermities. No slurred speech. CN 2 through 12 grossly intact Course Course Course Narrative: patient is asymptomatic, complaining of anxiety. Otherwise patient feels well. No chest pain or shortness of breath. Patient instructed to follow-up with her primary care physician Medical Decision Making Lab Data Result diagrams: 12/26/21 00:40 12/26/21 00:40 Labs: Lab Results 12/26/21 12/26/21 12/26/21 Range/Units 00:40 00:40 00:40 WBC 7.5 (4.8-10.8) X10*3/uL RBC 4.82 (4.20-5.50) X10*6/uL Hgb 14.5 (12.0-16.0) g/dl Hct 44.9 (37.0-47.0) % MCV 93.2 (80.0-98.0) fL MCH 30.1 (27.0-33.0) pg MCHC 32.3 (31.0-35.0) g/dl RDW 13.2 (11.0-16.0) % Plt Count 234 (160-400) X10*3/uL MPV 10.2 (9.4-12.3) fL Immature Gran % (Auto) 0.1 (0.0-0.4) % Neut % (Auto) 62.2 (45-73) % Lymph % (Auto) 20.8 (20-40) % [place] % (Auto) 13.6 H (2-11) % Eos % (Auto) 2.6 (0-4) % Baso % (Auto) 0.7 (0-2) % Lymph # (Auto) 1.6 (1.2-4.9) X10*3/uL [place] # (Auto) 1.0 (0.1-1.2) X10*3/uL Eos # (Auto) 0.2 (0.0-0.4) X10*3/uL Baso # (Auto) 0.1 (0.0-0.2) X10*3/uL Abs Immat Gran (auto) 0.01 (0.00-0.03) X10*3/uL Absolute Neuts (auto) 4.6 (2.0-8.3) x10*3/uL Absolute Nucleated RBC 0.000 (0.0-0.012) X10*3/uL Nucleated RBC % (auto) 0.0 (0.0-0.2) /100WBC Sodium 140 (135-145) mmol/L Potassium 3.9 (3.3-5.1) mmol/L Chloride 101 (96-108) mmol/L Carbon Dioxide 30 H (22-29) mmol/L Anion Gap 13 (12-20) BUN 12 (9-16) mg/dL Creatinine 0.71 (0.5-1.4) mg/dL Estim Creat Clear Calc 50.0 Estimated GFR > 60 Random Glucose 89 (60-115) mg/dL Calcium 10.3 H D (8.4-10.2) mg/dL Troponin I High Sens 7.7 (<3.5-17.0) ng/L B-Natriuretic Peptide (<100) pg/mL COVID-19 ([facility]) (Negative) COVID-19 Clin Com 12/26/21 12/26/21 Range/Units 00:40 00:40 WBC (4.8-10.8) X10*3/uL RBC (4.20-5.50) X10*6/uL Hgb (12.0-16.0) g/dl Hct (37.0-47.0) % MCV (80.0-98.0) fL MCH (27.0-33.0) pg MCHC (31.0-35.0) g/dl RDW (11.0-16.0) % Plt Count (160-400) X10*3/uL MPV (9.4-12.3) fL Immature Gran % (Auto) (0.0-0.4) % Neut % (Auto) (45-73) % Lymph % (Auto) (20-40) % [place] % (Auto) (2-11) % Eos % (Auto) (0-4) % Baso % (Auto) (0-2) % Lymph # (Auto) (1.2-4.9) X10*3/uL [place] # (Auto) (0.1-1.2) X10*3/uL Eos # (Auto) (0.0-0.4) X10*3/uL Baso # (Auto) (0.0-0.2) X10*3/uL Abs Immat Gran (auto) (0.00-0.03) X10*3/uL Absolute Neuts (auto) (2.0-8.3) x10*3/uL Absolute Nucleated RBC (0.0-0.012) X10*3/uL Nucleated RBC % (auto) (0.0-0.2) /100WBC Sodium (135-145) mmol/L Potassium (3.3-5.1) mmol/L Chloride (96-108) mmol/L Carbon Dioxide (22-29) mmol/L Anion Gap (12-20) BUN (9-16) mg/dL Creatinine (0.5-1.4) mg/dL Estim Creat Clear Calc Estimated GFR Random Glucose (60-115) mg/dL Calcium (8.4-10.2) mg/dL Troponin I High Sens (<3.5-17.0) ng/L B-Natriuretic Peptide 154 H (<100) pg/mL COVID-19 ([facility]) Negative (Negative) COVID-19 Clin Com See Note Imaging Data Chest x-ray: Radiologist's impression: Left-sided pacemaker lead tips overlie the right atrium and right ventricle. Lung volumes are symmetric. Mild streaky retrocardiac left basilar opacity favors atelectasis or scarring. No additional consolidation is seen. No evidence of pneumothorax, pleural effusion, or pulmonary edema. Cardiac size is within normal limits. Calcification is present at the aortic arch. Redemonstrated old left clavicular fracture. Degenerative changes are noted in the spine. XR/XR chest 1V IMPRESSION: Left-sided pacemaker lead tips extend to the region of the right atrium and right ventricle. Minimal streaky left basilar atelectasis versus scarring. Discharge Plan Discharge Clinical Impression: Hypertension Patient Disposition: Home, Self-Care Instructions: Hypertension (ED) Additional Instructions: please take your medications as instructed. Do not miss any doses. Please follow-up with your primary care physician tomorrow. If you have any worsening or new symptoms, please return to the emergency room or call 911 Prescriptions: No Action fluticasone furoate-vilanterol [Breo Ellipta] 100-25 mcg/dose blister with device 1 ea inhalation DAILY Qty: 180 3RF tiotropium bromide 18 mcg capsule, w/inhalation device 1 cap inhalation DAILY 30 Days Qty: 30 3RF alprazolam 0.5 mg tablet 0.5 mg PO TID PRN (Reason: anxiety) 30 Days Qty: 90 0RF hydrochlorothiazide 12.5 mg tablet 12.5 mg PO DAILY Qty: 30 0RF ketoconazole 2 % shampoo 1 appl topical 2XW Qty: 120 0RF triamcinolone acetonide 0.5 % cream 1 appl topical BID Qty: 15 0RF oxycodone 5 mg tablet 5 mg PO Q8H PRN (Reason: pain) Qty: 4 0RF meloxicam 15 mg tablet 15 mg PO DAILY 30 Days Qty: 30 0RF hydralazine 25 mg tablet 25 mg PO TID 0RF mupirocin 2 % ointment 1 appl topical TID 14 Days Qty: 15 2RF flecainide 100 mg tablet 100 mg PO Q12H 0RF hydroxyzine HCl 25 mg tablet 25 mg PO PRN0RF propranolol 60 mg capsule,extended release 24 hr 60 mg PO DAILY 0RF Narcan 4 mg/actuation spray,non-aerosol 4 mg intranasal Q2M 1 Days Qty: 2 1RF Rx Instructions: spray 1 dose into ONE nostril; alternate nostrils w each dose until help arrives Xarelto 20 mg tablet 20 mg PO DAILY 0RF
[2021-12-26 00:45] LABS: MANUAL DIFF FLAG NO
[2021-12-26] MEDS: oxyCODONE HCl Immed Release 5 MG TABLET PO (00:45)
[2021-12-26 00:46] LABS: Basophils Absolute Auto 0.1 X10*3/uL (0.0-0.2); Basophils Percent Auto 0.7 % (0-2); Eosinophils Absolute Auto 0.2 X10*3/uL (0.0-0.4); Eosinophils Percent Auto 2.6 % (0-4); Hematocrit 44.9 % (37.0-47.0); Hemoglobin 14.5 g/dl (12.0-16.0); Imm Gran Abs Auto 0.01 X10*3/uL (0.00-0.03); Imm Gran Pct Auto 0.1 % (0.0-0.4); Lymphocytes Absolute Auto 1.6 X10*3/uL (1.2-4.9); Lymphocytes Percent Auto 20.8 % (20-40); Mean Corpuscular HGB Conc 32.3 g/dl (31.0-35.0); Mean Corpuscular Hemoglobin 30.1 pg (27.0-33.0); Mean Corpuscular Volume 93.2 fL (80.0-98.0); Mean Platelet Volume 10.2 fL (9.4-12.3); Monocytes Percent Auto 13.6 % (2-11); Neutrophils Absolute Auto 4.6 x10*3/uL (2.0-8.3); Neutrophils Percent Auto 62.2 % (45-73); Platelet Count 234 X10*3/uL (160-400); Red Blood Count 4.82 X10*6/uL (4.20-5.50); Red Cell Distribution Width 13.2 % (11.0-16.0); White Blood Count 7.5 X10*3/uL (4.8-10.8)
[2021-12-26 01:05] LABS: Anion Gap 13 (12-20); Blood Urea Nitrogen 12 mg/dL (9-16); Calcium 10.3 mg/dL (8.4-10.2); Carbon Dioxide 30 mmol/L (22-29); Chloride 101 mmol/L (96-108); Estimated Glomerular Filt Rate > 60; Glucose Random 89 mg/dL (60-115); Potassium 3.9 mmol/L (3.3-5.1); Sodium 140 mmol/L (135-145); Troponin-I High Sensitivity 7.7 ng/L (<3.5-17.0)
[2021-12-26 01:08] LABS: COVID-19 Test Negative (Negative)
[2021-12-26 01:10] LABS: B Type Natriuretic Peptide 154 pg/mL (<100)
[2021-12-26 02:00] VITALS: BP 173/99; PULSE 78; RESP 16; O2SAT 99
== END 2021-12-26 02:07 | disposition home or self-care (01) ==
PROVIDERS: Emergency Provider Emergency Medicine
DX: I10 Essential (primary) hypertension (principal); I48.0 Paroxysmal atrial fibrillation; J44.9 Chronic obstructive pulmonary disease, unspecified; F17.210 Nicotine dependence, cigarettes, uncomplicated; Z95.0 Presence of cardiac pacemaker; Z20.822 Contact with and (suspected) exposure to COVID-19
CPT/HCPCS: 36415; 71045; 80048; 83880; 84484; 85025; 87635; 93005; 99284

== ENCOUNTER → 2022-01-07 15:02 | Outpatient (BNVA) | payer MEDICARE, MEDICAID, SELFPAY | PROVIDERS: PCP Internal Medicine; Referring Provider Internal Medicine; Visit Provider Nurse Practitioner Family | DX: Z45.018 Encounter for adjustment and management of other part of cardiac pacemaker (principal); Z09 Encounter for follow-up examination after completed treatment for conditions other than malignant neoplasm; I45.5 Other specified heart block; I48.0 Paroxysmal atrial fibrillation; I10 Essential (primary) hypertension; L28.0 Lichen simplex chronicus | CPT/HCPCS: 99212 ==

== ENCOUNTER → 2022-01-22 09:58 | Outpatient (BNVA) | payer MEDICARE, MEDICAID, SELFPAY | PROVIDERS: Visit Provider Internal Medicine | DX: F11.20 Opioid dependence, uncomplicated (principal) | CPT/HCPCS: 80305; 99202; 99212 ==

== ENCOUNTER → 2022-01-25 15:07 | Outpatient (BNVA) | payer MEDICARE, MEDICAID, SELFPAY | PROVIDERS: PCP Internal Medicine; Referring Provider Internal Medicine; Visit Provider Nurse Practitioner Family | DX: Z13.89 Encounter for screening for other disorder (principal) ==

== ENCOUNTER → 2022-02-11 11:18 | Outpatient (BNVA) | payer MEDICARE, SELFPAY | PROVIDERS: PCP Internal Medicine; Visit Provider Internal Medicine | DX: J44.9 Chronic obstructive pulmonary disease, unspecified (principal); F17.210 Nicotine dependence, cigarettes, uncomplicated; Z79.899 Other long term (current) drug therapy | CPT/HCPCS: 99212 ==

== ENCOUNTER → 2022-03-02 13:57 | Outpatient (BNVA) | payer MEDICARE, SELFPAY | PROVIDERS: PCP Internal Medicine; Visit Provider Internal Medicine | DX: Z51.81 Encounter for therapeutic drug level monitoring (principal); F11.20 Opioid dependence, uncomplicated | CPT/HCPCS: 80305; 99212 ==

== ENCOUNTER → 2022-03-09 14:10 | Outpatient (BNVA) | payer MEDICARE, SELFPAY | PROVIDERS: Visit Provider Internal Medicine | DX: F11.20 Opioid dependence, uncomplicated (principal) | CPT/HCPCS: 80305; 99212 ==

== ENCOUNTER → 2022-04-15 11:13 | Outpatient (BNVA) | payer MEDICARE, SELFPAY | PROVIDERS: Visit Provider Orthopaedic Surgery | DX: M17.11 Unilateral primary osteoarthritis, right knee (principal) | CPT/HCPCS: 99212 ==

== ENCOUNTER 2022-05-21 12:33 | Outpatient (REF) | payer MEDICARE, SELFPAY ==
--- NOTE | ~2022-05-21 | XR_ITS ---
EXAMINATION: XR KNEE, RIGHT CLINICAL INFORMATION: Knee pain COMPARISON: Radiographs right knee 03/04/2021 TECHNIQUE: Three views of the right knee. FINDINGS: There is tricompartment osteoarthritis, greatest medial knee joint compartment with marked joint narrowing, subchondral sclerosis, osteophytes, geode medial tibial plateau and secondary genu varus. Chondrocalcinosis is present involving the menisci. No visible erosive change. There is moderate suprapatellar effusion. There is corticated ossification 0.9 x 1.5 cm which may represent loose body. Smaller mineralization also present overlying the bursa. Overlying the suprapatellar bursa. XR/XR knee RT 3V IMPRESSION: -Prominent tricompartment osteoarthritis, greatest medial compartment with secondary genu varus and meniscal chondrocalcinosis. -Moderate suprapatellar effusion with possible loose bodies.
== END 2022-05-21 12:34 | disposition home or self-care (01) ==
LOC: HO.HMGCX 12:33
PROVIDERS: PCP Internal Medicine
DX: M25.561 Pain in right knee (principal)
CPT/HCPCS: 73562

== ENCOUNTER → 2022-05-24 16:23 | Outpatient (BNVA) | payer MEDICARE, SELFPAY | PROVIDERS: PCP Internal Medicine; Visit Provider Anesthesiology | DX: M25.561 Pain in right knee (principal); M17.11 Unilateral primary osteoarthritis, right knee | CPT/HCPCS: 99212 ==

== ENCOUNTER 2022-05-28 15:36 | Emergency (ER) | payer MEDICARE, SELFPAY ==
[2022-05-28 16:52] VITALS: BP 161/100; PULSE 77; RESP 16; TEMP 37.3; O2SAT 95; BMI 20.6
--- NOTE | 2022-05-28 17:52 | ED.GENADULT ---
HPI - General Adult General Chief complaint: General Medical Stated complaint: Neurodermatitis Time Seen by Provider: 05/28/22 17:44 Source: patient Mode of arrival: ambulatory Limitations: no limitations History of Present Illness HPI narrative: Patient is a 76 year old female presenting to the emergency department today with chronic right knee pain and a neurodermatitis flare of her scalp. Patient states that she was just seen for these things in the urgent care yesterday and given Tylenol 3s but they are not helping. Patient states that she used to be on Percocet / Oxys but her doctor stopped those and started her on Suboxone instead. Patient states that she did not tolerate the Suboxone so she threw it all away 2 months ago. Patient states that she does see a pain specialist but that hasn't helped much with her chronic right knee pain. Patient states that she has been outside more and believes that's what is making her neurodermatitis worse. Patient states that she is supposed to be following with a hydrostatic tester in [place] but has not made the drive out yet. Patient is adamant she wants stronger narcotics for this pain. Patient denies any dizziness, lightheadedness, abdominal pain, nausea, vomiting, fever, chills, blurry vision, double vision, loss of vision, chest pain, difficulty breathing, shortness of breath, back pain, night sweats, pain with urination, increased urinary frequency, increased urinary urgency, blood in her urine or stool, syncope or a near syncopal episode, recent trauma or falls, bowel incontinence, bladder incontinence, bowel retention, bladder retention, or any other complaints at this time. Onset (ago): year(s) Location: head (scalp), right and lower extremity Radiation: non-radiation Severity: mild Severity scale (1-10): 2 Pain Consistency: constant Relieving factors: none Exacerbating factors: none Associated symptoms: denies other symptoms Treatments prior to arrival: none Related Data Previous Rx's Medication Instructions Recorded fluticasone furoate 100 1 ea inhalation DAILY #180 ea 04/08/21 mcg-vilanterol 25 mcg/dose inhalation powder (Breo Ellipta) ketoconazole 2 % shampoo 1 appl topical 2XW #120 mL 12/24/21 hydrochlorothiazide 12.5 mg tablet 12.5 mg PO DAILY #30 tabs 12/28/21 mupirocin 2 % topical ointment 1 appl topical TID 14 days #15 12/28/21 grams tiotropium bromide 18 mcg capsule 1 cap inhalation DAILY 30 days #30 12/28/21 with inhalation device inhalations flecainide 100 mg tablet 100 mg PO Q12H #90 tabs 01/25/22 propranolol 60 mg capsule,24 60 mg PO DAILY #90 caps 01/25/22 hr,extended release rivaroxaban 20 mg tablet (Xarelto) 20 mg PO DAILY #90 tabs 01/25/22 acetaminophen 300 mg-codeine 15 mg 1 tab PO Q4H PRN pain #20 tabs 04/05/22 tablet sertraline 25 mg tablet 25 mg PO DAILY 90 days #90 tabs 05/03/22 alprazolam 0.5 mg tablet 0.5 mg PO TID PRN anxiety 30 days 05/26/22 #90 tabs acetaminophen 300 mg-codeine 15 mg 1 tab PO Q4H PRN pain #20 tabs 05/27/22 tablet Allergies Allergy/AdvReac Type Severity Reaction Status Date / Time succinylcholine Allergy Severe EXCESSIVE Verified 05/27/22 15:25 [SUCCINYLCHOLINE] PARALYSIS tramadol Allergy Intermediate diarrhea, Verified 05/27/22 15:25 upset stomach cat dander [CATS] Allergy Mild UNKNOWN Verified 05/27/22 15:25 dog dander [DOGS] Allergy Mild UNKNOWN Verified 05/27/22 15:25 pollen extracts [POLLEN] Allergy Mild UNKNOWN Verified 05/27/22 15:25 buprenorphine [From Suboxone] AdvReac Severe Hives Verified 05/27/22 15:25 naloxone [From Suboxone] AdvReac Severe Hives Verified 05/27/22 15:25 DUST Allergy Mild UNKNOWN Uncoded 05/24/22 16:54 Review of Systems Constitutional: Constitutional: Reports no additional constitutional complaints, Denies chills, Denies fever(s) and Denies night sweats Eyes: Eyes: Reports no additional eye complaints, Denies blurry vision, Denies change in vision, Denies diplopia, Denies eye discharge, Denies loss of vision and Denies eye pain ENT: Denies dizziness Cardiovascular: Cardiovascular: Reports no additional cardiovascular complaints, Denies chest pain, Denies lightheadedness, Denies Loss of Consciousness and Denies dyspnea Respiratory: Respiratory: Reports no additional respiratory complaints and Denies dyspnea Gastrointestinal: Gastrointestinal: Reports no additional gastrointestinal complaints, Denies abdominal pain, Denies melena, Denies hematochezia, Denies change in bowel habits and Denies change in stool character Genitourinary: Genitourinary: Denies hematuria, Denies urinary frequency, Denies dysuria, Denies urinary incontinence, Denies urinary hesitancy and Denies urinary urgency Musculoskeletal: Musculoskeletal: Reports no additional musculoskeletal complaints, Denies numbness and Denies tingling Comments: chronic right knee pain Integumentary/Breasts: Comments: scaling and pain of the scalp in multiple spots Neurologic: Denies dizziness, Denies loss of vision, Denies numbness and Denies tingling Psychiatric: Psychiatric: Reports no additional psychiatric complaints Endocrine: Endocrine: Reports no additional endocrine complaints Hematologic/Lymphatic: Hematologic/Lymphatic: Reports no additional hematologic/lymphatic complaints Allergic/Immunologic: Allergic/Immunologic: Reports no additional allergic/immunologic complaints PMFSH Past Medical History Attestation statement: The following information was validated with the patient. Source: old records reviewed Medical History Abdominal pain Anxiety COPD (chronic obstructive pulmonary disease) COPD exacerbation COPD with acute exacerbation Knee pain Knee pain Left knee pain Neurodermatitis Opioid use disorder Osteoarthritis of thoracic spine Pacemaker Paroxysmal atrial fibrillation Scalp abscess Sinus pause Skin lesion Smoker Vaginal discharge Surgical History History of bilateral cataract extraction History of ectopic History of hip replacement History of nasal surgery Mammogram declined Family History Family History Father No problems noted. Mother No problems noted. Social History Social History Housing: Apartment Alcohol intake: former Patient Tobacco Use Status: Current everyday Tobacco user Tobacco use type: Cigarette Cigarettes Per Day: 8 Years Smoked: 50 +/- e-Cigarette/Vaping Use: Never Used Second Hand Smoke Exposure: No Advance Directives: No Advance Directives Information Provided: No service: No Current occupational status: retired and disabled Cognitive needs: No Hearing needs: No Vision needs: No Physical Exam ED Vital Signs: Vital Signs - 24 hr 05/28/22 16:52 Temperature 99.1 F Pulse Rate 77 Respiratory Rate 16 Blood Pressure 161/100 H Pulse Oximetry 95 Oxygen Delivery Method Room Air BMI result Body Mass Index 20.6 Const General: cooperative, no acute distress, alert and awake Nutritional Appearance: well nourished Orientation/consciousness: patient oriented x3 Limitations: no limitations HENMT Other: multiple areas of erythema and scaling of the scalp/forehead - consistent with neurodermatitis, no warmth or signs of infection present Head: Yes atraumatic Ears: hearing grossly normal bilaterally and external ears normal General nose exam: Normal external nose present, no nasal discharge noted and no epistaxis Face and sinus: Yes normal facial exam, No abrasion and No laceration Mouth: Normal oral and palatal mucosa present, no drooling and no muffled voice Eyes General: appearance normal, both eyes and all related structures Periorbital: periorbital findings normal Eyelids: Yes eyelids normal Conjunctivae: conjunctivae normal Pupils: Equal, round and reactive pupils present EOM: EOMs intact bilaterally Neck Neck: Yes normal visual inspection, Yes full ROM and Yes no lymphadenopathy Chest Chest palpation & inspection: normal inspection of the chest Resp Effort & Inspection: normal respiratory effort and able to speak in complete sentences Auscultation: clear to auscultation bilaterally Cardio Rate: regular rate Rhythm: regular rhythm GI Inspection: Yes normal to inspection Neuro General: patient oriented x3 and moves all extremities Cranial nerves: Yes Equal, round and reactive pupils present Cognition (Neuro): normal cognition Motor exam (neuro): 5/5 motor strength present throughout Sensory Exam: Normal double simultaneous stimulation for sensation Coordination: [id number] test normal Extrem Other: swelling present to bilateral knees and elbows General: Yes full ROM and Yes capillary refill normal Psych Appearance: grossly normal Mental Status: mental status grossly normal Affect: normal affect Attitude: cooperative Thought process: Normal thought process present Thought content: Normal thought content present Insight: Good insight present (Psych) Medical Decision Making MDM Narrative Medical decision making narrative: Patient is a 76 year old female presenting to the emergency department today with chronic right knee pain and a neurodermatitis flare. Patient's physical exam showed multiple erythematous and scaling patches on her scalp with no signs of infection and chronic, bilateral, knee and elbow swelling. I explained my physical exam findings to the patient. I answered all questions asked by the patient. Patient received IM Solu-Medrol which she stated helped her symptoms significantly. I explained, in detail, that it is inappropriate to prescribe a narcotic pain medication to the patient for her chronic skin condition or her chronic right knee pain for which she is already being treated by a pain specialist. I stressed the importance of the patient taking her medication as prescribed. I stressed the importance of the patient following up with her primary care provider and her pain specialist. I stressed the importance of the patient returning to the emergency department immediately if her symptoms were to worsen or if she were to develop any dizziness, shortness of breath, difficulty breathing, chest pain, blurry vision, loss of vision, nausea, vomiting, abdominal pain, fever, chills, back pain, or any other complaints. Patient verbalized agreement and understanding with this treatment plan and discharge. Differential Diagnosis Differential Diagnosis: neurodermatitis, chronic right knee pain Medical Records Medical records reviewed: Yes I reviewed the patient's medical records. Discharge Plan Discharge Clinical Impression: Neurodermatitis, Chronic knee pain Patient Disposition: Home, Self-Care Instructions: Knee Pain (ED) Additional Instructions: Follow up with your primary care provider, hydrostatic tester, and your pain specialist. Return to the emergency department immediately if your symptoms worsen or if you develop any dizziness, shortness of breath, difficulty breathing, chest pain, blurry vision, loss of vision, nausea, vomiting, abdominal pain, fever, chills, back pain, or any other complaints. Prescriptions: No Action fluticasone furoate-vilanterol [Breo Ellipta] 100-25 mcg/dose blister with device 1 ea inhalation DAILY Qty: 180 3RF alprazolam 0.5 mg tablet 0.5 mg PO TID PRN (Reason: anxiety) 30 Days Qty: 90 0RF sertraline 25 mg tablet 25 mg PO DAILY 90 Days Qty: 90 0RF ketoconazole 2 % shampoo 1 appl topical 2XW Qty: 120 0RF tiotropium bromide 18 mcg capsule, w/inhalation device 1 cap inhalation DAILY 30 Days Qty: 30 3RF mupirocin 2 % ointment 1 appl topical TID 14 Days Qty: 15 2RF hydrochlorothiazide 12.5 mg tablet 12.5 mg PO DAILY Qty: 30 0RF acetaminophen-codeine 300-15 mg tablet 1 tab PO Q4H PRN (Reason: pain) Qty: 20 0RF acetaminophen-codeine 300-15 mg tablet 1 tab PO Q4H PRN (Reason: pain) Qty: 20 0RF flecainide 100 mg tablet 100 mg PO Q12H Qty: 90 0RF propranolol 60 mg capsule,extended release 24 hr 60 mg PO DAILY Qty: 90 0RF Xarelto 20 mg tablet 20 mg PO DAILY Qty: 90 0RF Referrals: Fany Bobby MD [Primary Care Provider] - Interventions: ED Discharge Assessment Last Done: 05/28/22 18:32 Discharge Date/Time: 05/28/22 18:36 Print Language: Chinese
[2022-05-28] MEDS: methylPREDNISolone Sod Succ 125 MG/2 ML VIAL 60 MG IM (18:29)
== END 2022-05-28 18:36 | disposition home or self-care (01) ==
PROVIDERS: Emergency Provider Student in an Organized Health Care Education/Training Program; PCP Internal Medicine
DX: L28.0 Lichen simplex chronicus (principal); G89.29 Other chronic pain; M25.561 Pain in right knee
CPT/HCPCS: 96372; 99282; 99284; J2930

== ENCOUNTER → 2022-07-08 14:04 | Outpatient (BNVA) | payer MEDICARE, SELFPAY | PROVIDERS: PCP Internal Medicine; Referring Provider Internal Medicine; Visit Provider Internal Medicine Cardiovascular Disease | DX: Z45.018 Encounter for adjustment and management of other part of cardiac pacemaker (principal); I48.0 Paroxysmal atrial fibrillation | CPT/HCPCS: 93005; 93280; 99212 ==

== ENCOUNTER → 2022-08-23 10:59 | Outpatient (BNVA) | payer MEDICARE, SELFPAY | PROVIDERS: PCP Internal Medicine; Visit Provider Internal Medicine | DX: J44.9 Chronic obstructive pulmonary disease, unspecified (principal); F17.210 Nicotine dependence, cigarettes, uncomplicated | CPT/HCPCS: 99212 ==

== ENCOUNTER 2022-09-23 16:17 | Emergency (ER) | payer MEDICARE, SELFPAY ==
--- NOTE | ~2022-09-23 | XR_ITS ---
EXAMINATION: XR elbow LT min 3V, XR elbow RT min 3V CLINICAL INFORMATION: Reason for Exam pain COMPARISON: 8 07/01/2019, 06/05/2021 TECHNIQUE: 3 views of the bilateral elbow joints. 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 Given extensive arthrosis, an underlying acute fracture cannot be excluded. Correlate with history of erosive arthropathy. * Right elbow: Again seen is severe arthrosis of the right elbow joint with osteophytosis, joint space narrowing, heterotopic ossification, and subchondral cystic changes. There is soft tissue swelling surrounding the entirety of the joint, similar to prior study and superimposed acute fracture cannot be excluded.
--- NOTE | ~2022-09-23 | XR_ITS ---
EXAMINATION: XR elbow LT min 3V, XR elbow RT min 3V CLINICAL INFORMATION: Reason for Exam pain COMPARISON: 8 07/01/2019, 06/05/2021 TECHNIQUE: 3 views of the bilateral elbow joints. 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 Given extensive arthrosis, an underlying acute fracture cannot be excluded. Correlate with history of erosive arthropathy. * Right elbow: Again seen is severe arthrosis of the right elbow joint with osteophytosis, joint space narrowing, heterotopic ossification, and subchondral cystic changes. There is soft tissue swelling surrounding the entirety of the joint, similar to prior study and superimposed acute fracture cannot be excluded.
--- NOTE | 2022-09-23 16:25 | ED_ITS ---
HPI - General Adult General Chief complaint: ETOH/Substance Use Stated complaint: BUE PAIN S/P FALL 2 WEEKS AGO PER EMS Time Seen by Provider: 09/23/22 16:25 Source: patient and EMS Mode of arrival: EMS Limitations: no limitations History of Present Illness HPI narrative: Patient is a 77 year old assigned female at with a history of alcohol abuse presenting to the emergency department today with bilateral elbow pain. Patient states that she fell on Thanksgiving and is having bilateral elbow pain still. EMS states that the patient's on sight health care marketing specialist called because the patient is intoxicated and acting aggressively. Patient denies hitting her head with the fall weeks ago. Patient denies any loss of consciousness with the fall weeks ago. Patient denies any dizziness, lightheadedness, abdominal pain, nausea, vomiting, fever, chills, blurry vision, double vision, loss of vision, chest pain, difficulty breathing, shortness of breath, back pain, night sweats, pain with urination, increased urinary frequency, increased urinary urgency, blood in her urine or stool, syncope or a near syncopal episode, bowel incontinence, bladder incontinence, bowel retention, bladder retention, or any o ther complaints at this time. Onset (ago): week(s) (2) Location: left, right and upper extremity Radiation: non-radiation Severity: mild Severity scale (1-10): 2 Quality: dull Pain Consistency: constant Relieving factors: none Exacerbating factors: none Associated symptoms: denies other symptoms Treatments prior to arrival: none Related Data Home Medications Medication Instructions Recorded Confirmed sertraline 25 mg tablet 25 mg PO DAILY 07/08/22 07/28/22 Previous Rx's Medication Instructions Recorded ketoconazole 2 % shampoo 1 appl topical 2XW #120 mL 12/24/21 tiotropium bromide 18 mcg capsule 1 cap inhalation DAILY 30 days #30 12/28/21 with inhalation device inhalations flecainide 100 mg tablet 100 mg PO Q12H #90 tabs 01/25/22 propranolol 60 mg capsule,24 60 mg PO DAILY #90 caps 01/25/22 hr,extended release rivaroxaban 20 mg tablet (Xarelto) 20 mg PO DAILY #90 tabs 01/25/22 lidocaine 5 % topical patch 1 patch topical DAILY #15 ea 07/15/22 pregabalin 25 mg capsule 25 mg PO BID 30 days #60 caps 07/28/22 lidocaine 5 % topical ointment 1 appl topical BEDTIME PRN pain 30 08/03/22 days #30 grams fluticasone furoate 100 1 ea inhalation DAILY #180 ea 08/20/22 mcg-vilanterol 25 mcg/dose inhalation powder (Breo Ellipta) lisinopril 10 mg tablet 10 mg PO DAILY 90 days #90 tabs 08/20/22 alprazolam 0.5 mg tablet 0.5 mg PO TID PRN anxiety 30 days 09/17/22 #90 tabs hydrocodone 5 mg-acetaminophen 325 1 tab PO DAILY PRN pain #2 tabs 09/23/22 mg tablet Allergies Allergy/AdvReac Type Severity Reaction Status Date / Time succinylcholine Allergy Severe EXCESSIVE Verified 08/23/22 11:36 [SUCCINYLCHOLINE] PARALYSIS tramadol Allergy Intermediate diarrhea, Verified 08/23/22 11:36 upset stomach cat dander [CATS] Allergy Mild UNKNOWN Verified 08/23/22 11:36 dog dander [DOGS] Allergy Mild UNKNOWN Verified 08/23/22 11:36 pollen extracts [POLLEN] Allergy Mild UNKNOWN Verified 08/23/22 11:36 buprenorphine [From Suboxone] AdvReac Severe Hives Verified 08/23/22 11:36 naloxone [From Suboxone] AdvReac Severe Hives Verified 08/23/22 11:36 gabapentin AdvReac Mild Nausea and Verified 08/23/22 11:36 Vomiting DUST Allergy Mild UNKNOWN Uncoded 08/23/22 11:36 Review of Systems Constitutional: Constitutional: Reports no additional constitutional complaints, Denies chills, Denies fever(s) and Denies night sweats Eyes: Eyes: Reports no additional eye complaints, Denies blurry vision, Denies change in vision, Denies diplopia, Denies eye discharge, Denies loss of vision and Denies eye pain ENT: Denies dizziness Cardiovascular: Cardiovascular: Reports no additional cardiovascular complaints, Denies chest pain, Denies lightheadedness, Denies Loss of Consciousness and Denies dyspnea Respiratory: Respiratory: Reports no additional respiratory complaints and Denies dyspnea Gastrointestinal: Gastrointestinal: Reports no additional gastrointestinal complaints, Denies abdominal pain, Denies melena, Denies hematochezia, Denies change in bowel habits and Denies change in stool character Genitourinary: Genitourinary: Denies hematuria, Denies urinary frequency, Denies dysuria, Denies urinary incontinence, Denies urinary hesitancy and Denies urinary urgency Musculoskeletal: Musculoskeletal: Reports no additional musculoskeletal complaints, Denies numbness and Denies tingling Comments: bilateral elbow pain Neurologic: Denies dizziness, Denies loss of vision, Denies numbness and Denies tingling Psychiatric: Psychiatric: Reports no additional psychiatric complaints Endocrine: Endocrine: Reports no additional endocrine complaints Hematologic/Lymphatic: Hematologic/Lymphatic: Reports no additional hematologic/lymphatic complaints Allergic/Immunologic: Allergic/Immunologic: Reports no additional allergic/immunologic complaints PMFSH Past Medical History Attestation statement: The following information was validated with the patient. Source: old records reviewed and obtained from family (patient's brother) Medical History Abdominal pain Anxiety COPD (chronic obstructive pulmonary disease) COPD exacerbation COPD with acute exacerbation Knee pain Knee pain Left knee pain Neurodermatitis Opioid use disorder Osteoarthritis of thoracic spine Pacemaker Paroxysmal atrial fibrillation Scalp abscess Sinus pause Skin lesion Smoker Vaginal discharge Surgical History History of bilateral cataract extraction History of ectopic History of hip replacement History of nasal surgery Mammogram declined Family History Family History Father No problems noted. Mother No problems noted. Social History Social History Housing: Apartment Alcohol intake: former Patient Tobacco Use Status: Current everyday Tobacco user Tobacco use type: Cigarette Cigarettes Per Day: 8 Years Smoked: 50 +/- e-Cigarette/Vaping Use: Never Used Second Hand Smoke Exposure: No Advance Directives: No Advance Directives Information Provided: No service: No Current occupational status: retired and disabled Cognitive needs: Yes Hearing needs: No Vision needs: No Physical Exam ED Vital Signs: Vital Signs - 24 hr 09/23/22 16:36 Temperature 99.0 F Pulse Rate 66 Respiratory Rate 16 Blood Pressure 126/77 Pulse Oximetry 97 Oxygen Delivery Method Room Air BMI result Body Mass Index 23.0 Const General: cooperative, no acute distress, alert and awake Nutritional Appearance: well nourished Orientation/consciousness: patient oriented x3 Limitations: no limitations HENMT Head: Yes normal to inspection and Yes atraumatic Ears: hearing grossly normal bilaterally and external ears normal General nose exam: Normal external nose present, no nasal discharge noted and no epistaxis Face and sinus: Yes normal facial exam, No abrasion and No laceration Mouth: Normal oral and palatal mucosa present, no drooling and no muffled voice Eyes General: appearance normal, both eyes and all related structures Periorbital: periorbital findings normal Eyelids: Yes eyelids normal Conjunctivae: conjunctivae normal Pupils: Equal, round and reactive pupils present EOM: EOMs intact bilaterally Neck Neck: Yes normal visual inspection, Yes full ROM and Yes no lymphadenopathy Chest Chest palpation & inspection: normal inspection of the chest Resp Effort & Inspection: normal respiratory effort and able to speak in complete sentences Auscultation: clear to auscultation bilaterally Cardio Rate: regular rate Rhythm: regular rhythm GI Inspection: Yes normal to inspection Neuro General: patient oriented x3 and moves all extremities Cranial nerves: Yes Equal, round and reactive pupils present Cognition (Neuro): normal cognition Motor exam (neuro): 5/5 motor strength present throughout Sensory Exam: Normal double simultaneous stimulation for sensation Coordination: [id number] test normal Extrem General: Yes normal to inspection, Yes full ROM and Yes capillary refill normal Psych Appearance: grossly normal Mental Status: mental status grossly normal Affect: normal affect Attitude: cooperative Thought process: Normal thought process present Thought content: Normal thought content present Insight: Good insight present (Psych) Medications Administered Discontinued Medications Generic Name Dose Route Start Last Admin Trade Name Freq PRN Reason Stop Dose Admin Ketorolac Tromethamine 15 mg 09/23/22 16:28 09/23/22 16:55 Ketorolac Tromethamine 15 Mg/Ml Vial IM 09/23/22 16:29 15 mg ONCE ONE Administration Medical Decision Making Medical Decision Making [facility] Narrative: Patient is a 77 year old assigned female at with a history of alcohol abuse presenting to the emergency department today with bilateral elbow pain and alcohol intoxication. Patient's physical exam showed an obviously intoxicated female. Patient's bilateral elbow x-rays showed no acute process. I explained my physical exam findings as well as all test results to the patient and the patient's brother Bill. I answered all questions asked by the patient and the patient's brother bill. Patient received IM Toradol which she stated helped her pain significantly. I stressed the importance of the patient taking her medication as prescribed. I stressed the importance of the patient following up with her primary care provider and an orthopedic provider. I stressed the importance of the patient returning to the emergency department immediately if her symptoms were to worsen or if she were to develop any dizziness, shortness of breath, difficulty breathing, chest pain, blurry vision, loss of vision, nausea, vomiting, abdominal pain, fever, chills, back pain, or any other comp laints. Patient and the patient's brother francine. verbalized agreement and understanding with this treatment plan and discharge. Differential Diagnoses: Differential diagnosis Differential Diagnosis: alcohol abuse, bilateral elbow pain. Independent interpretation of EKG, rhythm strip, radiology study: Independent interp EKG,rhythm strip, radiology study I performed an independent interpretation of the: Plain X-Ray (bilateral elbow) Radiologist's interpretation listed below. EXAMINATION: ?XR elbow LT min 3V, XR elbow RT min 3V CLINICAL INFORMATION: Reason for Exam pain COMPARISON: 8 07/01/2019, 06/05/2021 TECHNIQUE: 3 views of the bilateral elbow joints. XR/XR elbow LT min 3V FINDINGS/IMPRESSION: ? *? 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 Given extensive arthrosis, an underlying acute fracture cannot be excluded. Correlate with history of erosive arthropathy. ? *? Right elbow: Again seen is severe arthrosis of the right elbow joint with osteophytosis, joint space narrowing, heterotopic ossification, and subchondral cystic changes. There is soft tissue swelling surrounding the entirety of the joint, similar to prior study and superimposed acute fracture cannot be excluded. Dictated By: Jael Butler MD Signed By: Electronically signed by Jael Butler MD 09/23/22 1119 Discharge Plan Discharge Clinical Impression: Pain of both elbows Patient Disposition: Home, Self-Care Instructions: Elbow Sprain (ED) Additional Instructions: Follow up with your primary care provider and an orthopedic provider. Return to the emergency department immediately if your symptoms worsen or if you develop any dizziness, shortness of breath, difficulty breathing, chest pain, blurry vision, loss of vision, nausea, vomiting, abdominal pain, fever, chills, back pain, or any other complaints. Prescriptions: New hydrocodone-acetaminophen 5-325 mg tablet 1 tab PO DAILY PRN (Reason: pain) Qty: 2 0RF Rx Instructions: Partial Fill upon patient request. No Action lidocaine 5 % ointment 1 appl topical BEDTIME PRN (Reason: pain) 30 Days Qty: 30 0RF fluticasone furoate-vilanterol [Breo Ellipta] 100-25 mcg/dose blister with device 1 ea inhalation DAILY Qty: 180 3RF lisinopril 10 mg tablet 10 mg PO DAILY 90 Days Qty: 90 1RF alprazolam 0.5 mg tablet 0.5 mg PO TID PRN (Reason: anxiety) 30 Days Qty: 90 0RF ketoconazole 2 % shampoo 1 appl topical 2XW Qty: 120 0RF tiotropium bromide 18 mcg capsule, w/inhalation device 1 cap inhalation DAILY 30 Days Qty: 30 3RF lidocaine 5 % adhesive patch,medicated 1 patch topical DAILY Qty: 15 0RF Rx Instructions: leave on most painful area for up to 12 hrs pregabalin 25 mg capsule 25 mg PO BID 30 Days Qty: 60 0RF flecainide 100 mg tablet 100 mg PO Q12H Qty: 90 0RF propranolol 60 mg capsule,extended release 24 hr 60 mg PO DAILY Qty: 90 0RF Xarelto 20 mg tablet 20 mg PO DAILY Qty: 90 0RF sertraline 25 mg tablet 25 mg PO DAILY Referrals: [facility] [place] Group] (Call to establish and follow up with an orthopedic provider. ) Fany Bobby MD [Primary Care Provider] - Interventions: Watkins-Suicide Risk Severity Scale Last Done: 09/23/22 16:45 Print Language: Bulgarian
[2022-09-23 16:36] VITALS: BP 126/77; PULSE 66; RESP 16; TEMP 37.2; O2SAT 97; BMI 23.0
[2022-09-23] MEDS: Ketorolac Tromethamine 15 MG/ML VIAL IM (16:55)
--- NOTE | 2022-09-23 17:34 | PC.NURSE ---
Pt requesting to leave, this RN and VICENTA Gatica educated pt that she cannot leave unless she has a sober ride or has sobered up. Pt continuing to request to leave but is staying in her room at this time
== END 2022-09-23 18:24 | disposition home or self-care (01) ==
PROVIDERS: Emergency Provider Emergency Medicine; PCP Internal Medicine
DX: M25.521 Pain in right elbow (principal); M25.522 Pain in left elbow; F17.210 Nicotine dependence, cigarettes, uncomplicated; Z71.6 Tobacco abuse counseling; Z79.899 Other long term (current) drug therapy
CPT/HCPCS: 73080; 96372; 99284; J1885

== ENCOUNTER → 2022-09-27 11:18 | Outpatient (BNVA) | payer MEDICARE, SELFPAY | PROVIDERS: PCP Internal Medicine; Visit Provider Nurse Practitioner Psychiatric/Mental Health | DX: F11.20 Opioid dependence, uncomplicated (principal) | CPT/HCPCS: 80305; 99212 ==

== ENCOUNTER → 2022-09-28 09:03 | Outpatient (BNVA) | payer MEDICARE, SELFPAY | PROVIDERS: PCP Internal Medicine; Visit Provider Nurse Practitioner Psychiatric/Mental Health | DX: F11.20 Opioid dependence, uncomplicated (principal) | CPT/HCPCS: Q3014 ==

== ENCOUNTER → 2022-10-04 13:42 | Outpatient (BNVA) | payer MEDICARE, SELFPAY | PROVIDERS: PCP Internal Medicine; Visit Provider Nurse Practitioner Psychiatric/Mental Health | DX: Z51.81 Encounter for therapeutic drug level monitoring (principal); F11.20 Opioid dependence, uncomplicated | CPT/HCPCS: 99212 ==

== ENCOUNTER → 2022-10-19 13:07 | Outpatient (BNVA) | payer MEDICARE, SELFPAY | PROVIDERS: PCP Internal Medicine; Visit Provider Nurse Practitioner Psychiatric/Mental Health | DX: F11.20 Opioid dependence, uncomplicated (principal) | CPT/HCPCS: 99212 ==

== ENCOUNTER → 2022-11-09 13:17 | Outpatient (BNVA) | payer MEDICARE, SELFPAY | PROVIDERS: PCP Internal Medicine; Visit Provider Nurse Practitioner Psychiatric/Mental Health | DX: F11.20 Opioid dependence, uncomplicated (principal) | CPT/HCPCS: 99212 ==

== ENCOUNTER → 2022-12-27 10:12 | Outpatient (BNVA) | payer MEDICARE, SELFPAY | PROVIDERS: PCP Internal Medicine; Visit Provider Internal Medicine Cardiovascular Disease | DX: Z45.018 Encounter for adjustment and management of other part of cardiac pacemaker (principal); I48.0 Paroxysmal atrial fibrillation; I10 Essential (primary) hypertension | CPT/HCPCS: 93005; 93280; 99212 ==

== ENCOUNTER → 2022-12-28 16:01 | Outpatient (BNVA) | payer OTHER, SELFPAY | PROVIDERS: PCP Internal Medicine; Visit Provider Nurse Practitioner Psychiatric/Mental Health ==

== ENCOUNTER 2023-01-04 15:51 | Outpatient (REF) | payer MEDICARE, SELFPAY ==
[2023-01-04 17:42] LABS: Anion Gap 13 (12-20); Blood Urea Nitrogen 16 mg/dL (9-16); Calcium 9.7 mg/dL (8.4-10.2); Carbon Dioxide 28 mmol/L (22-29); Chloride 102 mmol/L (96-108); Estimated Glomerular Filt Rate > 60; Glucose Random 82 mg/dL (60-115); Potassium 4.4 mmol/L (3.3-5.1); Sodium 139 mmol/L (135-145)
== END 2023-01-04 15:52 | disposition home or self-care (01) ==
LOC: HO.LAB 15:51
PROVIDERS: PCP Internal Medicine; Visit Provider Internal Medicine Cardiovascular Disease
DX: I48.0 Paroxysmal atrial fibrillation (principal)
CPT/HCPCS: 36415; 80048

== ENCOUNTER → 2023-02-28 11:00 | Outpatient (BNVA) | payer MEDICARE, OTHER, SELFPAY | PROVIDERS: PCP Internal Medicine; Visit Provider Internal Medicine | DX: J44.9 Chronic obstructive pulmonary disease, unspecified (principal); F17.210 Nicotine dependence, cigarettes, uncomplicated | CPT/HCPCS: 99212 ==

== ENCOUNTER 2023-04-26 11:30 | Emergency (ER) | payer MEDICARE, SELFPAY ==
[2023-04-26 11:33] VITALS: BP 113/88; BP 99/71; PULSE 73; PULSE 98; RESP 16; TEMP 36.4; O2SAT 92; O2SAT 94; BMI 18.9
--- NOTE | 2023-04-26 11:55 | PC.NURSE ---
per ems pt has chronic back/head pain, was on pain meds for past 10yr, hx of ETOH, reports drinking a 5th of vodka.
--- NOTE | 2023-04-26 12:23 | PC.NURSE ---
Anu pts daughter: [phone]
[2023-04-26 12:57] VITALS: BP 143/90; PULSE 71; RESP 12; O2SAT 96
--- NOTE | 2023-04-26 13:50 | ED.BACK ---
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 She denies any fall she denies any loss of bowel or bladder function fevers or chills she denies any IV drug use. She does admit to oxycodone abuse in the past she did try Suboxone but states that she broke. She denies falls fevers or chest pain. She also wanted to evaluate patch on her scalp she surgery at another hospital 2 months ago. Patient admits to scratching the areas she has been treated for shingles has been going to multiple providers for this over 14 years now. She make a statement stating that it was not for her kids that she might not keep going through all this. I did frankly ask her if she was suicidal she states she believes in God she is adamant that she is not suicidal under the patient has no urinary symptoms no trouble urinating no history of kidney stones Related Data Previous Rx's Medication Instructions Recorded ketoconazole 2 % shampoo 1 appl topical 2XW #120 mL 12/24/21 rivaroxaban 20 mg tablet (Xarelto) 20 mg PO DAILY #90 tabs 01/25/22 fluticasone furoate 100 1 ea inhalation DAILY #180 ea 08/20/22 mcg-vilanterol 25 mcg/dose inhalation powder (Breo Ellipta) propranolol 60 mg capsule,24 60 mg PO DAILY #90 caps 10/05/22 hr,extended release flecainide 100 mg tablet 100 mg PO Q12H 90 days #180 tabs 11/27/22 lisinopril 10 mg tablet 10 mg PO DAILY 90 days #90 tabs 11/27/22 clobetasol 0.05 % topical gel 1 appl topical BID 2 weeks #30 12/10/22 grams tiotropium bromide 18 mcg capsule 1 cap inhalation DAILY 30 days #30 01/10/23 with inhalation device inhalations acetaminophen 500 mg tablet 1,000 mg PO Q6H PRN pain 30 days 01/14/23 #240 tabs amoxicillin 500 mg capsule 500 mg PO Q8H #30 caps 04/16/23 alprazolam 0.5 mg tablet 0.5 mg PO TID PRN anxiety 30 days 04/19/23 #90 tabs mupirocin 2 % topical ointment 1 appl topical BID 30 days #22 04/19/23 grams Allergies Allergy/AdvReac Type Severity Reaction Status Date / Time succinylcholine Allergy Severe EXCESSIVE Verified 04/20/23 12:32 [SUCCINYLCHOLINE] PARALYSIS tramadol Allergy Intermediate diarrhea, Verified 04/20/23 12:32 upset stomach cat dander [CATS] Allergy Mild UNKNOWN Verified 04/20/23 12:32 dog dander [DOGS] Allergy Mild UNKNOWN Verified 04/20/23 12:32 pollen extracts [POLLEN] Allergy Mild UNKNOWN Verified 04/20/23 12:32 buprenorphine [From Suboxone] AdvReac Severe Hives Verified 04/20/23 12:32 naloxone [From Suboxone] AdvReac Severe Hives Verified 04/20/23 12:32 gabapentin AdvReac Mild Nausea and Verified 04/20/23 12:32 Vomiting DUST Allergy Mild UNKNOWN Uncoded 04/20/23 12:32 Review of Systems Review of Systems: Review of systems: General: Patient denies any fever chills recent illness or falls Musculoskeletal: Chronic back pain no body aches or other injuries HEENT: denies headache, runny nose, ear pain Respiratory: denies shortness of breath, cough Cardiovascular: no chest pain or palpitations : denies dysuria, frequency Abdomen: no nausea vomiting denies abdominal pain Extremities: no swelling, no pain Skin: Rash to right upper back no diaphoresis Yes all other systems are reviewed and are negative PMFSH Past Medical History Medical History (Updated 04/26/23 @ 14:03 by Martin Kim DO) Abdominal pain Anxiety COPD (chronic obstructive pulmonary disease) COPD exacerbation COPD with acute exacerbation Knee pain Knee pain Left knee pain Neurodermatitis Opioid use disorder Osteoarthritis of thoracic spine Pacemaker Paroxysmal atrial fibrillation Scalp abscess Sinus pause Skin lesion Smoker Vaginal discharge Surgical History History of basal cell carcinoma (BCC) excision History of bilateral cataract extraction History of ectopic History of hip replacement History of nasal surgery Mammogram declined Family History Family History Father No problems noted. Mother No problems noted. Social History Social History Housing: Apartment Alcohol intake: current Patient Tobacco Use Status: Current everyday Tobacco user Tobacco use type: Cigarette Cigarettes Per Day: 6 Years Smoked: 50 +/- Smoked in Last 30 Days: Yes e-Cigarette/Vaping Use: Never Used Second Hand Smoke Exposure: No Use of substances other than those prescribed or required for medical reasons: No Advance Directives: No service: No Current occupational status: retired and disabled Cognitive needs: Yes Hearing needs: No Vision needs: No Physical Exam Vital Signs: Vital Signs: Last Vital Signs Temp 97.5 F 04/26/23 11:33 Pulse 71 04/26/23 12:57 Resp 12 04/26/23 12:57 BP 143/90 H 04/26/23 12:57 Pulse Ox 96 04/26/23 12:57 O2 Del Method Room Air 04/26/23 12:57 BMI result Body Mass Index 18.9 General: Well-appearing well-nourished in no signs of distress HEENT: Normocephalic atraumatic middle portion of her scalp does have some redness and areas where there is alopecia but there is no signs infection is not tender to palpation it is consistently pink not bright red confirmed to be more associated with cellulitis. Neck: No signs of JVD, no masses no tenderness or lymphadenopathy Cardiovascular: Regular rate and rhythm Respiratory: Clear to auscultation bilaterally Abdomen: Soft nontender no masses normal sensation to open eyes Extremities: Normal pedal pulses no signs of edema Skin: Patient with a rash consistent with vitiligo to her entire back Dry warm no rashes Back: No tenderness full ROM normal reflexes to bilateral lower extremities normal strength moving around normally has a rash to her left lower back shoulders all very excoriated left lower back does have signs of shingles with wounds in different stages of healing there is nothing on the right lower back. Medical Decision Making Medical Decision Making MDM Narrative: Patient with chronic back pain multiple complaints related to this as well as a pressure for add that looks be feeling well no signs of infection she has no signs infection to her back either I will send patient home a muscle relaxant cyclobenzaprine as well as prednisone and valacyclovir and have the patient follow-up with her doctor. Differential Diagnosis Differential Diagnoses: The differential diagnosis associated with the presentation includes Back pain chronic back pain shingles, UTI less likely kidney stone Admission/Observation Consideration of admission/observation: Escalation of care including admission/observation considered External Record Review External record reviewed: Inpatient record, Office record and Outpatient record I did review her notes she was diagnosed with neurodermatitis her other specified dermatitis by Dermatology she was was but moved worsened cream to the oozing areas. Patient was seeing pain management and was getting Suboxone for over a year as well. 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 Prescription Management I considered prescription management with: Antiviral Discharge Plan Discharge Clinical Impression: Anxiety, Neurodermatitis, Opioid use disorder, Shingles, Back pain Patient Disposition: Home, Self-Care Instructions: Anxiety (ED), Shingles (ED), Dermatitis (ED) Additional Instructions: He was seen today for a rash and back pain which have had for several years. I am not sure exactly what this is but I will treat for shingles it does appear to be the same rash that you had when he saw dermatology walk-in clinic and primary care doctor in the past. I do think you should follow-up with Pain Management as you have tolerated Suboxone in the past for over a year. Unsure why it is listed as an allergy. If you have any other concerns please do not hesitate to come back to emergency department. Prescriptions: No Action fluticasone furoate-vilanterol [Breo Ellipta] 100-25 mcg/dose blister with device 1 ea inhalation DAILY Qty: 180 3RF propranolol 60 mg capsule,extended release 24 hr 60 mg PO DAILY Qty: 90 3RF flecainide 100 mg tablet 100 mg PO Q12H 90 Days Qty: 180 1RF lisinopril 10 mg tablet 10 mg PO DAILY 90 Days Qty: 90 1RF clobetasol 0.05 % gel 1 appl topical BID 14 Days Qty: 30 0RF tiotropium bromide 18 mcg capsule, w/inhalation device 1 cap inhalation DAILY 30 Days Qty: 30 3RF acetaminophen 500 mg tablet 1,000 mg PO Q6H PRN (Reason: pain) 30 Days Qty: 240 0RF alprazolam 0.5 mg tablet 0.5 mg PO TID PRN (Reason: anxiety) 30 Days Qty: 90 0RF mupirocin 2 % ointment 1 appl topical BID 30 Days Qty: 22 0RF ketoconazole 2 % shampoo 1 appl topical 2XW Qty: 120 0RF amoxicillin 500 mg capsule 500 mg PO Q8H Qty: 30 0RF Xarelto 20 mg tablet 20 mg PO DAILY Qty: 90 0RF
[2023-04-26] MEDS: valACYclovir HCL 1,000 MG TABLET 1000 MG PO (14:30)
--- NOTE | 2023-04-26 14:31 | PC.NURSE ---
Pt refusing pain meds offered, accepted Valtrex. Stating i want oxycodone, even if its only 5mg, i need something for pain Pt educated that pain meds offered is for pain however pt continues to refuse
== END 2023-04-26 14:59 | disposition home or self-care (01) ==
PROVIDERS: Emergency Provider Student in an Organized Health Care Education/Training Program; PCP Internal Medicine
DX: F41.9 Anxiety disorder, unspecified (principal); B02.9 Zoster without complications; L28.0 Lichen simplex chronicus; F11.99 Opioid use, unspecified with unspecified opioid-induced disorder; Z79.899 Other long term (current) drug therapy
CPT/HCPCS: 99283; 99284

== ENCOUNTER → 2023-05-30 13:30 | Outpatient (BNVA) | payer MEDICARE, SELFPAY | PROVIDERS: PCP Internal Medicine; Referring Provider Internal Medicine; Visit Provider Internal Medicine Cardiovascular Disease ==

== ENCOUNTER 2023-06-07 11:17 | Outpatient (AMB) | payer MEDICARE, SELFPAY ==
--- NOTE | 2023-06-07 11:19 | A.OFFVIS_ITS ---
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: No Allergies succinylcholine [SUCCINYLCHOLINE] Allergy (Severe, Verified 06/07/23 11:38) EXCESSIVE PARALYSIS tramadol Allergy (Intermediate, Verified 06/07/23 11:38) diarrhea, upset stomach cat dander [CATS] Allergy (Mild, Verified 06/07/23 11:38) UNKNOWN dog dander [DOGS] Allergy (Mild, Verified 06/07/23 11:38) UNKNOWN pollen extracts [POLLEN] Allergy (Mild, Verified 06/07/23 11:38) UNKNOWN buprenorphine [From Suboxone] Adverse Reaction (Severe, Verified 06/07/23 11:38) Hives naloxone [From Suboxone] Adverse Reaction (Severe, Verified 06/07/23 11:38) Hives gabapentin Adverse Reaction (Mild, Verified 06/07/23 11:38) Nausea and Vomiting DUST Allergy (Mild, Uncoded 06/07/23 11:38) UNKNOWN Do you need a note to return to daycare/school/sports/work: No HPI MAT Restart HPI Details Patient presents to re-establish care Last seen in December Reports he last suboxone dose was about 1 week ago Has been having thoughts of buying pills Would like to go back on 2mg --had been taking 1/2 film BID Concerned about buying pills and risk of overdose as she knows of 2 people in the last week that from opioid overdose. [facility] Medical History (Updated 04/27/23 @ 00:28 by Background Michelle) Abdominal pain Anxiety COPD (chronic obstructive pulmonary disease) COPD exacerbation COPD with acute exacerbation Knee pain Knee pain Left knee pain Neurodermatitis Opioid use disorder Osteoarthritis of thoracic spine Pacemaker Paroxysmal atrial fibrillation Scalp abscess Sinus pause Skin lesion Smoker Vaginal discharge Surgical History History of basal cell carcinoma (BCC) excision History of bilateral cataract extraction History of ectopic History of hip replacement History of nasal surgery Mammogram declined Family History Father No problems noted. Mother No problems noted. Social History Housing: Apartment Alcohol intake: current Patient Tobacco Use Status: Current everyday Tobacco user Tobacco use type: Cigarette Cigarettes Per Day: 6 Years Smoked: 50 +/- e-Cigarette/Vaping Use: Never Used Second Hand Smoke Exposure: No service: No Current occupational status: retired and disabled Cognitive needs: Yes Hearing needs: No Vision needs: No Review of Systems Const Reports as per HPI and Reports no additional complaints Physical Exam Vital Signs: Last Vital Signs Pulse 82 06/07/23 11:27 BP 110/74 06/07/23 11:27 Pulse Ox 97 06/07/23 11:27 Oxygen Delivery Method Room Air 06/07/23 11:27 Const General: cooperative, no acute distress and anxious Orientation/consciousness: patient oriented x3 Neuro General: patient oriented x3 Psych Appearance: grossly normal Speech and movement: Clear speech present Affect: Anxious affect present Thought process: Circumstantial thought process present Insight: Fair insight present (Psych) Results AMB 14 Panel Urine Drug Screen Urine Marijuana (THC) Negative Last Edit by Erin Saucedo CMA on 06/07/23 11:42 Urine Cocaine Negative Last Edit by Erin Saucedo CMA on 06/07/23 11:42 Urine Morphine Negative Last Edit by Erin Saucedo CMA on 06/07/23 11:42 Urine Methamphetamine Negative Last Edit by Erin Saucedo CMA on 06/07/23 11:42 Urine Amphetamine Negative Last Edit by Erin Saucedo CMA on 06/07/23 11:4 2 Urine Benzodiazepine Positive Last Edit by Erin Saucedo CMA on 06/07/23 11:42 Urine Barbiturates Negative Last Edit by Erin Saucedo CMA on 06/07/23 11: 42 Urine Methadone Negative Last Edit by Erin Saucedo CMA on 06/07/23 11:42 Urine Buprenorphine Negative Last Edit by Erin Saucedo CMA on 06/07/23 11 :42 Urine Tricyclic Antidepressant Negative Last Edit by Erin Saucedo CMA on 06/07/23 11:42 Urine MDMA Negative Last Edit by Erin Saucedo CMA on 06/07/23 11:42 Urine Oxycodone Negative Last Edit by Erin Saucedo CMA on 06/07/23 11:42 Urine Phencyclidine Negative Last Edit by Erin Saucedo CMA on 06/07/23 11 :42 Urine Propoxyphene Negative Last Edit by Erin Saucedo CMA on 06/07/23 11: 42 Results Reviewed Results Reviewed: Laboratory Last Values POC Urine Buprenorphine Negative 06/07/23 11:40 POC Urine Morphine Negative 06/07/23 11:40 POC Urine Oxycodone Negative 06/07/23 11:40 POC Urine Methadone Negative 06/07/23 11:40 POC Urine Propoxyphene Negative 06/07/23 11:40 POC Urine Barbiturates Negative 06/07/23 11:40 POC U Tricyclic Antidpr Negative 06/07/23 11:40 POC Urine PCP Negative 06/07/23 11:40 POC Ur Amphetamines Negative 06/07/23 11:40 POC Ur Methamphetamine Negative 06/07/23 11:40 POC Urine MDMA Negative 06/07/23 11:40 POC Ur Benzodiazepine Positive 06/07/23 11:40 POC Urine Cocaine Negative 06/07/23 11:40 POC Ur Marijuana (THC) Negative 06/07/23 11:40 Assessment & Plan Assessment & Plan (1) Opioid use disorder: Code(s): F11.90 - Opioid use, unspecified, uncomplicated Plan: * Restart Suboxone 2 mg daily * Overdose prevention discussion * Follow-up 2 weeks Orders: Orders AMB 14 Panel Urine Drug Screen 06/07/23 Z51.81 - Encounter for therapeutic drug level monitoring Medications: New buprenorphine-naloxone 2-0.5 mg (Suboxone) 1 film sublingual DAILY 15 ea 0RF Coding Level of Care Code Est Pt Level 4 (53625) Diagnoses Opioid use disorder F11.90
[2023-06-07 11:27] VITALS: BP 110/74; PULSE 82; O2SAT 97
== END 2023-06-07 11:51 | disposition home or self-care (01) ==
LOC: HO.HCC 11:18
PROVIDERS: PCP Internal Medicine; Visit Provider Nurse Practitioner Psychiatric/Mental Health
DX: F11.90 Opioid use, unspecified, uncomplicated (principal)
CPT/HCPCS: 99214

== ENCOUNTER → 2023-06-07 11:17 | Outpatient (BNVA) | payer MEDICARE, SELFPAY | PROVIDERS: PCP Internal Medicine; Visit Provider Nurse Practitioner Psychiatric/Mental Health | DX: F11.20 Opioid dependence, uncomplicated (principal) | CPT/HCPCS: 80305; 99212 ==

== ENCOUNTER → 2023-06-27 23:59 | Outpatient (BNV) | payer MEDICARE, SELFPAY ==
--- NOTE | 2023-06-27 09:00 | A.OFFVIS_ITS ---
Intake Intake Visit Reasons: Remote Device Check- [employer] Allergies succinylcholine [SUCCINYLCHOLINE] Allergy (Severe, Verified 06/07/23 11:38) EXCESSIVE PARALYSIS tramadol Allergy (Intermediate, Verified 06/07/23 11:38) diarrhea, upset stomach cat dander [CATS] Allergy (Mild, Verified 06/07/23 11:38) UNKNOWN dog dander [DOGS] Allergy (Mild, Verified 06/07/23 11:38) UNKNOWN pollen extracts [POLLEN] Allergy (Mild, Verified 06/07/23 11:38) UNKNOWN buprenorphine [From Suboxone] Adverse Reaction (Severe, Verified 06/07/23 11:38) Hives naloxone [From Suboxone] Adverse Reaction (Severe, Verified 06/07/23 11:38) Hives gabapentin Adverse Reaction (Mild, Verified 06/07/23 11:38) Nausea and Vomiting DUST Allergy (Mild, Uncoded 06/07/23 11:38) UNKNOWN [facility] Medical History (Updated 04/27/23 @ 00:28 by Background Dabrigid) Knee pain Pacemaker Sinus pause Opioid use disorder COPD with acute exacerbation COPD (chronic obstructive pulmonary disease) Left knee pain Paroxysmal atrial fibrillation Knee pain Abdominal pain Smoker Neurodermatitis COPD exacerbation Scalp abscess Vaginal discharge Skin lesion Osteoarthritis of thoracic spine Anxiety Surgical History History of basal cell carcinoma (BCC) excision History of bilateral cataract extraction History of ectopic History of hip replacement History of nasal surgery Mammogram declined Family History Father No problems noted. Mother No problems noted. Social History Housing: Apartment Alcohol intake: current Patient Tobacco Use Status: Current everyday Tobacco user Tobacco use type: Cigarette Cigarettes Per Day: 6 Years Smoked: 50 +/- e-Cigarette/Vaping Use: Never Used Second Hand Smoke Exposure: No service: No Current occupational status: retired and disabled Cognitive needs: Yes Hearing needs: No Vision needs: No Office Procedures Cardiac Device Check Cardiac Device Check Details: Remote pacemaker report generated 06/27/2023. Pacemaker function is adequate. Very low burden of atrial fibrillation noted [id number]-Vzoxfe Cardiac Device Interrogation, pacemaker Procedure code (CPT) selection complete Coding Level of Care Code Procedure Only CPT Codes Cardiac Device Check - Cardiac Device 12: [id number] Cardiac Device Interrogation, pacemaker ([id number])
== END ==
PROVIDERS: PCP Internal Medicine; Visit Provider Internal Medicine Cardiovascular Disease
DX: I48.0 Paroxysmal atrial fibrillation (principal); Z95.0 Presence of cardiac pacemaker
CPT/HCPCS: 93294

== ENCOUNTER 2023-07-11 11:04 | Outpatient (AMB) | payer MEDICARE, SELFPAY ==
--- NOTE | 2023-07-11 11:12 | A.OFFVIS_ITS ---
Intake Vital Signs 07/11/23 11:13 BP 140/96 H Blood Pressure Location Rt brachial Position Sitting Pulse 82 Pulse Oximetry (%) 99 Comment Pt denies CP, SOB, change in vision, ORTIZ Intake Visit Reasons: MAT Visit Allergies succinylcholine [SUCCINYLCHOLINE] Allergy (Severe, Verified 06/07/23 11:38) EXCESSIVE PARALYSIS tramadol Allergy (Intermediate, Verified 06/07/23 11:38) diarrhea, upset stomach cat dander [CATS] Allergy (Mild, Verified 06/07/23 11:38) UNKNOWN dog dander [DOGS] Allergy (Mild, Verified 06/07/23 11:38) UNKNOWN pollen extracts [POLLEN] Allergy (Mild, Verified 06/07/23 11:38) UNKNOWN buprenorphine [From Suboxone] Adverse Reaction (Severe, Verified 06/07/23 11:38) Hives naloxone [From Suboxone] Adverse Reaction (Severe, Verified 06/07/23 11:38) Hives gabapentin Adverse Reaction (Mild, Verified 06/07/23 11:38) Nausea and Vomiting DUST Allergy (Mild, Uncoded 06/07/23 11:38) UNKNOWN HPI MAT Visit HPI Details Patient presents for OUD treatment follow up Currently prescribed Suboxone 2mg QD Patient reports falling into a manhole last week. Denies any injury, although left ankle visibly swollen. She denies any pain and states she is able to walk on it with no issue. Declines urgent care visit to assess. Doing well with current suboxone dose. [facility] Medical History (Updated 04/27/23 @ 00:28 by Background Daemon) Knee pain Pacemaker Sinus pause Opioid use disorder COPD with acute exacerbation COPD (chronic obstructive pulmonary disease) Left knee pain Paroxysmal atrial fibrillation Knee pain Abdominal pain Smoker Neurodermatitis COPD exacerbation Scalp abscess Vaginal discharge Skin lesion Osteoarthritis of thoracic spine Anxiety Surgical History History of basal cell carcinoma (BCC) excision History of bilateral cataract extraction History of ectopic History of hip replacement History of nasal surgery Mammogram declined Family History Father No problems noted. Mother No problems noted. Social History Housing: Apartment Alcohol intake: current Patient Tobacco Use Status: Current everyday Tobacco user Tobacco use type: Cigarette Cigarettes Per Day: 6 Years Smoked: 50 +/- e-Cigarette/Vaping Use: Never Used Second Hand Smoke Exposure: No service: No Current occupational status: retired and disabled Cognitive needs: Yes Hearing needs: No Vision needs: No Review of Systems Const Reports as per HPI and Reports no additional complaints Physical Exam Vital Signs: Last Vital Signs Pulse 82 07/11/23 11:13 BP 140/96 H 07/11/23 11:13 Pulse Ox 99 07/11/23 11:13 Const General: cooperative, no acute distress and anxious Orientation/consciousness: patient oriented x3 Neuro General: patient oriented x3 Psych Appearance: grossly normal Speech and movement: Clear speech present Affect: Anxious affect present Thought process: Circumstantial thought process present Insight: Fair insight present (Psych) Assessment & Plan Assessment & Plan (1) Opioid use disorder: Code(s): F11.90 - Opioid use, unspecified, uncomplicated Plan: * Continue Suboxone 2 mg daily * Overdose prevention discussion * Follow-up 4 weeks Medications: Refilled buprenorphine-naloxone 2-0.5 mg (Suboxone) 1 film sublingual DAILY 28 ea 0RF Coding Level of Care Code Est Pt Level 3 (42023) Diagnoses Opioid use disorder F11.90
[2023-07-11 11:13] VITALS: BP 140/96; PULSE 82; O2SAT 99
== END 2023-07-11 11:54 | disposition home or self-care (01) ==
LOC: HO.HCC 11:04
PROVIDERS: PCP Internal Medicine; Visit Provider Nurse Practitioner Psychiatric/Mental Health
DX: F11.90 Opioid use, unspecified, uncomplicated (principal)
CPT/HCPCS: 99213

== ENCOUNTER → 2023-07-11 11:04 | Outpatient (BNVA) | payer MEDICARE, SELFPAY | PROVIDERS: PCP Internal Medicine; Visit Provider Nurse Practitioner Psychiatric/Mental Health | DX: F11.20 Opioid dependence, uncomplicated (principal) | CPT/HCPCS: 99212 ==

== ENCOUNTER 2023-08-16 12:52 | Outpatient (AMB) | payer MEDICARE, SELFPAY ==
--- NOTE | 2023-08-16 13:06 | MHC.PC.OV ---
Vital Signs 08/16/23 13:08 08/16/23 13:19 Height 5 ft 1 in Weight 111 lb 8 oz BMI 21.1 BP 160/70 H 130/68 Blood Pressure Location Lt brachial Lt brachial Position Sitting Sitting Pulse 75 Pulse Source Pulse Oximeter Pulse Oximetry (%) 97 Oxygen Delivery Method Room Air Intake Visit Reasons: Ongoing back pain Intake Note: Patient is here to follow up on back pain. Inspectors And Regulatory Officers Required: No Supervisor [employer]intering [employer]: Not Required per policy Accompanied by: Self / Same As Patient Allergies succinylcholine [SUCCINYLCHOLINE] Allergy (Severe, Verified 08/16/23 13:07) EXCESSIVE PARALYSIS tramadol Allergy (Intermediate, Verified 08/16/23 13:07) diarrhea, upset stomach cat dander [CATS] Allergy (Mild, Verified 08/16/23 13:07) UNKNOWN dog dander [DOGS] Allergy (Mild, Verified 08/16/23 13:07) UNKNOWN pollen extracts [POLLEN] Allergy (Mild, Verified 08/16/23 13:07) UNKNOWN buprenorphine [From Suboxone] Adverse Reaction (Severe, Verified 08/16/23 13:07) Hives naloxone [From Suboxone] Adverse Reaction (Severe, Verified 08/16/23 13:07) Hives gabapentin Adverse Reaction (Mild, Verified 08/16/23 13:07) Nausea and Vomiting DUST Allergy (Mild, Uncoded 08/16/23 13:07) UNKNOWN Tobacco use date assessed: 08/16/23 Fall risk assessment: 2 + Falls in past year Last assessed Fall Risk: 08/16/23 Dental Screening Dental Screen Date: 08/16/23 Did you have a dental visit in the last 12 months?: Yes Did you have a dental problem in the last 6 months where you did not have access to dental care?: No Was dental information given to patient?: Patient has dentist HPI HPI Comments History of Present Illness Details 78-year-old female past medical history significant for osteoarthritis, anxiety, COPD, paroxysmal AFib, opiate use disorder patient follows with comprehensive care clinic currently on Suboxone, depression, hypertense. Patient presents today for ongoing back pain x 13 years. Patient reports was previously followed by pain management however she was discharged from the practice as she reports that a nurse gave her extra opiate medication, however she reports she does not know what happened with these medications but she did not take any of them. Patient currently taking Tylenol 1000 mg q.6 hours for pain. Patient is requesting stronger pain medication.Unable to prescribe NSAIDS as patient is on anticougulation therapy, discussed lidoderm patches.. Patient made aware given her history I am unable to prescribed any controlled substances to her. Upon completion of this appointment patient stated she had to show me on other thing and revealed left inguinal hernia that she noticed a few weeks ago, Patient states she has been helping her son move recently. Denies any pain, no signs of hernia strangulation. [facility]MERLY [facility] Medical History (Updated 08/18/23 @ 07:44 by DUC Lynn) Knee pain Pacemaker Sinus pause Opioid use disorder COPD with acute exacerbation COPD (chronic obstructive pulmonary disease) Left knee pain Paroxysmal atrial fibrillation Knee pain Abdominal pain Smoker Neurodermatitis COPD exacerbation Scalp abscess Vaginal discharge Skin lesion Osteoarthritis of thoracic spine Anxiety Surgical History History of basal cell carcinoma (BCC) excision Mammogram declined History of bilateral cataract extraction History of ectopic History of hip replacement History of nasal surgery Family History Father No problems noted. Mother No problems noted. Social History Housing: Apartment Alcohol intake: current Patient Tobacco Use Status: Current everyday Tobacco user Tobacco use type: Cigarette Cigarettes Per Day: 6 Years Smoked: 50 +/- e-Cigarette/Vaping Use: Never Used Second Hand Smoke Exposure: Yes service: No Current occupational status: retired and disabled Cognitive needs: Yes Hearing needs: No Vision needs: No Questionnaire Thrive Questionnaire Date Thrive assessed: 02/16/23 GORGE-7 AMB Questionnaire GORGE-7 Date GORGE - 7 assessed: 02/16/23 Source: Developed by Drs. Dane Lindsey, Lynn Peña, Jose Vivas and colleagues, with an educational afsaneh from [employer]. Review of Systems Const Denies chills, Denies fatigue, Denies fever(s) and Denies poor appetite Eyes Denies no additional complaints ENT Reports Normal hearing present Card Denies chest pain, Denies syncope, Denies rapid heart rate and Denies dyspnea Resp Denies cough and Denies dyspnea GI Denies change in stool character, Denies constipation, Denies diarrhea, Denies nausea, Denies vomiting and Reports other (hernia ) Denies urinary frequency, Denies dysuria and Denies urinary urgency Musc Reports back pain Neuro Reports Normal hearing present, Denies confusion and Denies syncope Psych Denies confusion Endo Denies fatigue Physical exam (Primary Care) Vital Signs: Last Vital Signs Pulse 75 08/16/23 13:08 BP 130/68 08/16/23 13:19 Pulse Ox 97 08/16/23 13:08 Oxygen Delivery Method Room Air 08/16/23 13:08 BMI result Body Mass Index 21.1 Tobacco/Smoking Status: Tobacco use Status Tobacco use date assessed 08/16/23 08/16/23 13:20 Patient Tobacco Use Status Current everyday Tobacco 08/16/23 13:20 Tobacco use type Cigarette 08/16/23 13:20 e-Cigarette/Vaping Use Never Used 08/16/23 13:20 Thrive Assessment: Date of Thrive Assessment Date Thrive assessed 02/16/23 08/16/23 13:20 Const General: No confusion Orientation/consciousness: No confusion HENMT Head: Yes normocephalic and Yes atraumatic Eyes Conjunctivae: conjunctivae normal Chest Chest palpation & inspection: normal inspection of the chest Resp Effort & Inspection: normal respiratory effort Auscultation: clear to auscultation bilaterally, no crackles, no rhonchi and no wheezes Cardio Rate: regular rate Rhythm: regular rhythm Heart sounds: S1 normal heart sound present and S2 normal heart sound present GI Inspection: Yes normal to inspection and Yes visible herniation (left inguinal hernia ) Neuro General: No confusion Cranial nerves: Yes Normal hearing present Extrem General: No edema Assessment and Plan Assessment & Plan (1) Essential hypertension: Code(s): I10 - Essential (primary) hypertension Plan: continue on lisinopril (2) COPD (chronic obstructive pulmonary disease): Comment: MODERATELY SEVERE CHRONIC OBSTRUCTIVE PULMONARY DISEASE IS DEFINITELY RELATED TO HER LONG-TIME SMOKING. * STRESSED AGAIN THAT SHE MUST QUIT SMOKING COMPLETELY . TX CURRENT REGIMEN IS ADEQUATE, CONTINUE BREO- 100 1 INHALATION DAILY . SPIRIVA HANDIHALER 1 INHALATION DAILY. USE ALBUTEROL HFA 2 PUFFS Q 4-6 HOURS ONLY P.R.N. Code(s): J44.9 - Chronic obstructive pulmonary disease, unspecified Plan: Continue on current inhalers. (3) Paroxysmal atrial fibrillation: Comment: Status post ablation. Being maintained on antiarrhythmic with flecainide and has done very well with rhythm control approach Code(s): I48.0 - Paroxysmal atrial fibrillation Plan: Continue on xarelto and flecanide (4) Osteoarthritis of thoracic spine: Code(s): M47.814 - Spondylosis without myelopathy or radiculopathy, thoracic region Plan: Continue on Tylenol as needed for arthritis pain. Refill sent on lidocaine cream. (5) Left inguinal hernia: Code(s): K40.90 - Unilateral inguinal hernia, without obstruction or gangrene, not specified as recurrent Plan: Referral entered to General surgery Orders: Referrals General Surgery Referral K40.90 - Unilateral inguinal hernia, without obstruction or gangrene, not specified as recurrent Medications: Refilled lidocaine 5% 1 appl topical BEDTIME PRN 30 grams 1RF pain 30 days Coding Level of Care Code Est Pt Level 4 (64863) Diagnoses Essential hypertension I10 COPD (chronic obstructive pulmonary disease) J44.9 Paroxysmal atrial fibrillation I48.0 Osteoarthritis of thoracic spine M47.814 Left inguinal hernia K40.90
[2023-08-16 13:08] VITALS: BP 160/70; PULSE 75; O2SAT 97; BMI 21.1
[2023-08-16 13:19] VITALS: BP 130/68
== END 2023-08-16 14:30 | disposition home or self-care (01) ==
PROVIDERS: PCP Internal Medicine; Visit Provider Nurse Practitioner Family
DX: I10 Essential (primary) hypertension (principal); J44.9 Chronic obstructive pulmonary disease, unspecified; I48.0 Paroxysmal atrial fibrillation; M47.814 Spondylosis without myelopathy or radiculopathy, thoracic region; K40.90 Unilateral inguinal hernia, without obstruction or gangrene, not specified as recurrent
CPT/HCPCS: 99214

== ENCOUNTER 2023-08-19 09:03 | Outpatient (AMB) | payer MEDICARE, SELFPAY ==
--- NOTE | 2023-08-19 09:06 | MHC.AM.SUB ---
Intake Intake Visit Reasons: MAT Visit Allergies succinylcholine [SUCCINYLCHOLINE] Allergy (Severe, Verified 08/16/23 13:07) EXCESSIVE PARALYSIS tramadol Allergy (Intermediate, Verified 08/16/23 13:07) diarrhea, upset stomach cat dander [CATS] Allergy (Mild, Verified 08/16/23 13:07) UNKNOWN dog dander [DOGS] Allergy (Mild, Verified 08/16/23 13:07) UNKNOWN pollen extracts [POLLEN] Allergy (Mild, Verified 08/16/23 13:07) UNKNOWN buprenorphine [From Suboxone] Adverse Reaction (Severe, Verified 08/16/23 13:07) Hives naloxone [From Suboxone] Adverse Reaction (Severe, Verified 08/16/23 13:07) Hives gabapentin Adverse Reaction (Mild, Verified 08/16/23 13:07) Nausea and Vomiting DUST Allergy (Mild, Uncoded 08/16/23 13:07) UNKNOWN HPI MAT Visit HPI Details Patient presents for follow up via telehealth Reporting numerous medical appts and possible upcoming surgery for hernia Continues to take suboxone (1/2) 2mg film BID. Doing well with that dose. She reports her daughter picks up her prescriptions as she does not want to leave the house as much anymore. [facility] Medical History (Updated 08/18/23 @ 07:44 by DUC Lynn) Knee pain Pacemaker Sinus pause Opioid use disorder COPD with acute exacerbation COPD (chronic obstructive pulmonary disease) Left knee pain Paroxysmal atrial fibrillation Knee pain Abdominal pain Smoker Neurodermatitis COPD exacerbation Scalp abscess Vaginal discharge Skin lesion Osteoarthritis of thoracic spine Anxiety Surgical History History of basal cell carcinoma (BCC) excision Mammogram declined History of bilateral cataract extraction History of ectopic History of hip replacement History of nasal surgery Family History Father No problems noted. Mother No problems noted. Social History Housing: Apartment Alcohol intake: current Patient Tobacco Use Status: Current everyday Tobacco user Tobacco use type: Cigarette Cigarettes Per Day: 6 Years Smoked: 50 +/- e-Cigarette/Vaping Use: Never Used Second Hand Smoke Exposure: Yes service: No Current occupational status: retired and disabled Cognitive needs: Yes Hearing needs: No Vision needs: No Review of Systems Const Reports as per HPI Assessment & Plan Assessment & Plan (1) Opioid use disorder: Code(s): F11.90 - Opioid use, unspecified, uncomplicated Plan: continue suboxone at current dose follow up 2 weeks--rx due at that time Telehealth Telehealth Location of provider rendering services: practice address Location of patient: address on file Patient Identification confirmed using: Name, : Yes Telehealth method: voice only Patient verbally consented to treatment: Yes Patient verbally consented to billing insurance company: Yes Coding Level of Care Code Tele Est Pt Level 3 (75626) Diagnoses Opioid use disorder F11.90 Time Spent (min) 25 Comment 16 mins with patient remainder on chart review and documentation
== END 2023-08-19 09:36 | disposition home or self-care (01) ==
PROVIDERS: PCP Internal Medicine; Visit Provider Nurse Practitioner Psychiatric/Mental Health
DX: F11.90 Opioid use, unspecified, uncomplicated (principal)
CPT/HCPCS: 99443

== ENCOUNTER → 2023-08-19 09:03 | Outpatient (BNVA) | payer MEDICARE, SELFPAY | PROVIDERS: PCP Internal Medicine; Visit Provider Nurse Practitioner Psychiatric/Mental Health ==

== ENCOUNTER 2023-09-02 09:06 | Outpatient (AMB) | payer MEDICARE, SELFPAY ==
--- NOTE | 2023-09-02 09:11 | A.OFFVIS_ITS ---
Intake Intake Visit Reasons: MAT Visit Allergies succinylcholine [SUCCINYLCHOLINE] Allergy (Severe, Verified 08/16/23 13:07) EXCESSIVE PARALYSIS tramadol Allergy (Intermediate, Verified 08/16/23 13:07) diarrhea, upset stomach cat dander [CATS] Allergy (Mild, Verified 08/16/23 13:07) UNKNOWN dog dander [DOGS] Allergy (Mild, Verified 08/16/23 13:07) UNKNOWN pollen extracts [POLLEN] Allergy (Mild, Verified 08/16/23 13:07) UNKNOWN buprenorphine [From Suboxone] Adverse Reaction (Severe, Verified 08/16/23 13:07) Hives naloxone [From Suboxone] Adverse Reaction (Severe, Verified 08/16/23 13:07) Hives gabapentin Adverse Reaction (Mild, Verified 08/16/23 13:07) Nausea and Vomiting DUST Allergy (Mild, Uncoded 08/16/23 13:07) UNKNOWN HPI MAT Visit HPI Details Pt presents via telehealth for YEVGENIY treatment and follow up. Reports she has ongoing pain that she is going to be seeing multiple providers for. States she doesn't walk as much anymore so she is not leaving her house as much. When she does leave her house she likes to go to stores to try and walk around. Denies concerns about suboxone- side effects or dose, states it doesn't really help much in regards to pain. [facility]LY [facility], [facility] Medical History (Updated 08/18/23 @ 07:44 by DUC Lynn) Knee pain Pacemaker Sinus pause Opioid use disorder COPD with acute exacerbation COPD (chronic obstructive pulmonary disease) Left knee pain Paroxysmal atrial fibrillation Knee pain Abdominal pain Smoker Neurodermatitis COPD exacerbation Scalp abscess Vaginal discharge Skin lesion Osteoarthritis of thoracic spine Anxiety Surgical History History of basal cell carcinoma (BCC) excision Mammogram declined History of bilateral cataract extraction History of ectopic History of hip replacement History of nasal surgery Family History Father No problems noted. Mother No problems noted. Housing: Apartment Alcohol intake: current Patient Tobacco Use Status: Current everyday Tobacco user Tobacco use type: Cigarette Cigarettes Per Day: 6 Years Smoked: 50 +/- e-Cigarette/Vaping Use: Never Used Second Hand Smoke Exposure: Yes service: No Current occupational status: retired and disabled Cognitive needs: Yes Hearing needs: No Vision needs: No Review of Systems Const Reports as per HPI Assessment & Plan Assessment & Plan (1) Opioid use disorder: Code(s): F11.90 - Opioid use, unspecified, uncomplicated Plan: Continue suboxone at current dose Follow up in 2 months Medications: Refilled buprenorphine-naloxone 2-0.5 mg (Suboxone) 1 film sublingual DAILY 28 ea 0RF Telehealth Telehealth Location of provider rendering services: practice address Location of patient: address on file Patient Identification confirmed using: Name, : Yes Telehealth method: voice only Patient verbally consented to treatment: Yes Patient verbally consented to billing insurance company: Yes Patient informed of any privacy concerns related to visit: Yes Coding Level of Care Code Tele Est Pt Level 3 (77850) Diagnoses Opioid use disorder F11.90 Time Spent (min) 20 Comment 15 mins with patient, remainder on documentation
== END 2023-09-02 09:24 | disposition home or self-care (01) ==
LOC: HO.HCC 09:06
PROVIDERS: PCP Internal Medicine; Visit Provider Nurse Practitioner Family
DX: F11.90 Opioid use, unspecified, uncomplicated (principal)
CPT/HCPCS: 99442

== ENCOUNTER → 2023-09-02 09:06 | Outpatient (BNVA) | payer MEDICARE, SELFPAY | PROVIDERS: PCP Internal Medicine; Visit Provider Nurse Practitioner Family ==

== ENCOUNTER 2023-09-08 06:28 | Emergency (ER) | payer MEDICARE, SELFPAY ==
--- NOTE | ~2023-09-08 | CT_ITS ---
EXAMINATION: CT ABDOMEN AND PELVIS WITH CONTRAST CLINICAL INFORMATION: Left lower quadrant abdominal pain. Right hip pain COMPARISON: CT abdomen and pelvis 02/02/2019. TECHNIQUE: Multidetector volumetric images were obtained from the superior aspect of the liver through the pubic symphysis following administration 85 mL of Omnipaque 350 intravenous contrast. Sagittal and coronal reformatted images were obtained on the technologist's workstation. Oral contrast: No This CT examination was performed using dose optimization techniques as appropriate, variously including the following: *Automated exposure control *Adjustment of mA and/or kV according to patient size (this includes techniques or standardized protocols for targeted exams where dose is matched to indication/reason for exam; i.e. extremities or head) *Use of iterative reconstruction technique DLP: 1492 mGy-cm FINDINGS: LUNG BASES: There is patchy scarring or atelectasis in both lung bases with mild emphysema. The heart size enlarged. There are pacer electrodes in right atrium and right ventricle. LIVER, GALLBLADDER, AND BILIARY TREE: The liver is normal in size, shape, and attenuation. There is a known 7 cm cyst in the right hepatic lobe, stable. No additional lesions seen. There is a prominent double duct sign similar to previous study. No intrahepatic ductal dilatation seen. The gallbladder is unremarkable with no evidence of radiopaque gallstones, gallbladder wall thickening, or obvious pericholecystic inflammatory changes. PANCREAS: Unremarkable. SPLEEN: Unremarkable. ADRENAL GLANDS: The right adrenal gland is enlarged with likely 1.4 cm hypodense nodule. Previously measured 0.9 cm. Left adrenal gland is mildly enlarged. KIDNEYS AND URETERS: The kidneys are normal in size, shape, and attenuation. No hydronephrosis, hydroureter, or calculi seen. No perinephric stranding. There is a 1 cm cyst midpole left kidney. Few scattered low-density lesions likely smaller cyst are seen in both kidneys. BLADDER: Unremarkable. GASTROINTESTINAL TRACT: There is moderate stool, diverticuli and gas seen throughout the colon without distention. The small bowel loops are normal caliber. Appendix appears normal caliber. The stomach is nondistended. No free air or free fluid seen. ABDOMINAL WALL: No significant hernia is appreciated. LYMPH NODES: Normal. VASCULAR: There is evidence for calcification of abdominal aorta without aneurysmal dilatation. PELVIC VISCERA: The pelvis is limited in evaluation secondary to beam hardening artifacts from bilateral hip prosthesis. No free fluid suspected. OSSEOUS STRUCTURES: There are bilateral hip prosthesis and levoscoliosis of lumbar spine. Degenerative disc changes are seen throughout lumbar spine with osteoporotic deformities, Schmorl's node but no acute fracture suspected. CT/CT abdomen pelvis w IV con IMPRESSION: Emphysema patchy atelectasis/scarring both lung bases. 7 mm liver cyst, bilateral renal cysts and bilateral adrenal enlargement with a nodule in the right gland. The right adrenal gland nodule has slightly increased. Colonic diverticulosis with moderate to significant constipation. No diverticulitis. Fleischner guidelines were followed.
--- NOTE | ~2023-09-08 | CT_ITS ---
Examination: CT brain and CT cervical spine without contrast. Clinical indications: Fall on anticoagulants. COMPARISON: CT brain and CT cervical spine 02/02/2019. TECHNIQUE: 5 mm thin axial and reformatted 2 mm thin sagittal and coronal images of brain were obtained. Subsequently axial 3 mm thin and reformatted 2 mm thin sagittal and coronal images of cervical spine were obtained. DLP 1492. This CT examination was performed using dose optimization technique as appropriate, variously including the following: Automated exposure control Adjustment of MA and/or KV according to patient size(this includes techniques or standardized protocols for targeted exams where dose is matched to indication/reason for exam; extremities or head. Use of iterative reconstruction techniques. FINDINGS: Brain: There is no acute intra-axial, extra-axial bleed, masses or midline shift there is no acute infarction evolution. There is no edema. The valadez to white matter difference is maintained. The lateral ventricles are symmetrical in size and configuration without enlargement. Bone windows reveal no calvarial abnormality. No scalp soft tissue abnormality seen. Bilateral paranasal sinuses and mastoid air cells are well-aerated. There is midline frontoparietal and left parietal skin thickening likely contusion. Cervical spine: There is reversal of cervical lordosis. The vertebral heights and alignment is normal. There is loss of C4-C5, C5-C6 and C6-C7 disc heights with mild ventral and posterior spondylosis. The craniovertebral junction and the C1-C2 alignment is normal. There is no visible acute fracture, dislocation or subluxation seen. No aggressive lytic or sclerotic process. There is moderate bilateral facet joint arthropathy from C2-C3 through C4-C5 disc levels. The prevertebral soft tissues are normal. CT/CT cervical spine wo IV con IMPRESSION: 1. No acute intracranial process seen. 2. There is midline frontoparietal and left parietal skin thickening likely contusion. No calvarial fracture seen. 3. Reversal of cervical lordosis with degenerative disc changes C4-C5, C5-C6 and C6-C7 disc levels with ventral and posterior spondylosis. No visible acute fracture, dislocation or subluxation seen.
--- NOTE | 2023-09-08 06:33 | ED.GENADULT ---
HPI - General Adult General Chief complaint: Abdominal Pain Stated complaint: LOWER ABDOMINAL PAIN DUE TO HERNIA Time Seen by Provider: 09/08/23 06:32 Source: patient and EMS Mode of arrival: EMS Limitations: no limitations History of Present Illness HPI narrative: Patient is a 78 year old assigned female at with a history of presenting to the emergency department today with COPD, opiate use disorder, HTN, left inguinal hernia, and anxiety. Patient states that she is having LLQ abdominal pain, where her hernia is, and having right hip pain after falling out of bed last night. Patient states that she did not hit her head or have any loss of consciousness. Patient denies any dizziness, lightheadedness, nausea, vomiting, fever, chills, blurry vision, double vision, loss of vision, chest pain, difficulty breathing, shortness of breath, back pain, night sweats, pain with urination, increased urinary frequency, increased urinary urgency, blood in her urine or stool, syncope or a near syncopal episode, recent trauma or falls, bowel incontinence, bladder incontinence, bowel retention, bladder retention, or any other complaints at this time. Onset (ago): day(s) Location: abdomen and right (hip) Severity: mild Severity scale (1-10): 3 Quality: aching and dull Pain Consistency: constant Relieving factors: none Exacerbating factors: none Associated symptoms: denies other symptoms Treatments prior to arrival: none Related Data Previous Rx's Medication Instructions Recorded ketoconazole 2 % shampoo 1 appl topical 2XW #120 mL 12/24/21 clobetasol 0.05 % topical gel 1 appl topical BID 2 weeks #30 12/10/22 grams tiotropium bromide 18 mcg capsule 1 cap inhalation DAILY 30 days #30 01/10/23 with inhalation device inhalations acetaminophen 500 mg tablet 1,000 mg (2 x 500 mg) PO Q6H PRN 01/14/23 pain 30 days #240 tabs mupirocin 2 % topical ointment 1 appl topical BID 30 days #22 04/19/23 grams lisinopril 10 mg tablet 10 mg PO DAILY 90 days #90 tabs 05/14/23 valacyclovir 1 gram tablet 1,000 mg PO TID 7 days #21 tabs 05/14/23 propranolol 60 mg capsule,24 60 mg PO DAILY #90 caps 05/18/23 hr,extended release pregabalin 25 mg capsule 25 mg PO DAILY 30 days #30 caps 05/19/23 rivaroxaban 20 mg tablet (Xarelto) 20 mg PO DAILY #90 tabs 08/03/23 lidocaine 5 % topical ointment 1 appl topical BEDTIME PRN pain 30 08/18/23 days #30 grams amoxicillin 500 mg capsule 500 mg PO Q8H #30 caps 08/24/23 flecainide 100 mg tablet 100 mg PO Q12H 30 days #60 tabs 08/25/23 buprenorphine 2 mg-naloxone 0.5 mg 1 film sublingual DAILY #28 ea 09/02/23 sublingual film (Suboxone) alprazolam 0.5 mg tablet 0.5 mg PO TID PRN anxiety 30 days 09/05/23 #90 tabs fluticasone furoate 100 1 ea inhalation DAILY #180 ea 09/06/23 mcg-vilanterol 25 mcg/dose inhalation powder (Breo Ellipta) sodium phosphates 19 gram-7 118 ml MT BEDTIME PRN constipation 09/08/23 gram/118 mL enema (Fleet Enema) #133 mL Allergies Allergy/AdvReac Type Severity Reaction Status Date / Time succinylcholine Allergy Severe EXCESSIVE Verified 08/16/23 13:07 [SUCCINYLCHOLINE] PARALYSIS tramadol Allergy Intermediate diarrhea, Verified 08/16/23 13:07 upset stomach cat dander [CATS] Allergy Mild UNKNOWN Verified 08/16/23 13:07 dog dander [DOGS] Allergy Mild UNKNOWN Verified 08/16/23 13:07 pollen extracts [POLLEN] Allergy Mild UNKNOWN Verified 08/16/23 13:07 buprenorphine [From Suboxone] AdvReac Severe Hives Verified 08/16/23 13:07 naloxone [From Suboxone] AdvReac Severe Hives Verified 08/16/23 13:07 gabapentin AdvReac Mild Nausea and Verified 08/16/23 13:07 Vomiting DUST Allergy Mild UNKNOWN Uncoded 08/16/23 13:07 Review of Systems Constitutional: Constitutional: Reports no additional constitutional complaints, Denies chills, Denies fever(s) and Denies night sweats Eyes: Eyes: Reports no additional eye complaints, Denies blurry vision, Denies change in vision, Denies diplopia, Denies eye discharge, Denies loss of vision and Denies eye pain ENT: Denies dizziness Cardiovascular: Cardiovascular: Reports no additional cardiovascular complaints, Denies chest pain, Denies lightheadedness, Denies Loss of Consciousness and Denies dyspnea Respiratory: Respiratory: Reports no additional respiratory complaints and Denies dyspnea Gastrointestinal: Gastrointestinal: Reports no additional gastrointestinal complaints, Reports abdominal pain, Denies melena, Denies hematochezia, Denies change in bowel habits and Denies change in stool character Genitourinary: Genitourinary: Denies hematuria, Denies urinary frequency, Denies dysuria, Denies urinary incontinence, Denies urinary hesitancy and Denies urinary urgency Musculoskeletal: Musculoskeletal: Reports no additional musculoskeletal complaints, Denies numbness and Denies tingling Comments: right hip pain Neurologic: Denies dizziness, Denies loss of vision, Denies numbness and Denies tingling Psychiatric: Psychiatric: Reports no additional psychiatric complaints Endocrine: Endocrine: Reports no additional endocrine complaints Hematologic/Lymphatic: Hematologic/Lymphatic: Reports no additional hematologic/lymphatic complaints Allergic/Immunologic: Allergic/Immunologic: Reports no additional allergic/immunologic complaints [facility] Past Medical History Attestation statement: The following information was validated with the patient. Source: old records reviewed and nursing notes reviewed Medical History Upper respiratory tract infection Skin lesion of face Skin abscess Hospital discharge follow-up Laceration of elbow, right Contusion of elbow, right Right knee skin infection Knee pain Pacemaker Sinus pause Opioid use disorder COPD with acute exacerbation COPD (chronic obstructive pulmonary disease) Left knee pain Paroxysmal atrial fibrillation Knee pain Abdominal pain Smoker Neurodermatitis COPD exacerbation Scalp abscess Vaginal discharge Skin lesion Osteoarthritis of thoracic spine Anxiety Surgical History History of basal cell carcinoma (BCC) excision Mammogram declined History of bilateral cataract extraction History of ectopic History of hip replacement History of nasal surgery Family History Family History Father No problems noted. Mother No problems noted. Social History Housing: Apartment Alcohol intake: current Patient Tobacco Use Status: Current everyday Tobacco user Tobacco use type: Cigarette Cigarettes Per Day: 6 Years Smoked: 50 +/- Smoked in Last 30 Days: Yes e-Cigarette/Vaping Use: Never Used Second Hand Smoke Exposure: Yes Use of substances other than those prescribed or required for medical reasons: No Advance Directives: Yes Advance Directives Information Provided: No Advance Directives on File: No service: No Current occupational status: retired and disabled Cognitive needs: Yes Hearing needs: No Vision needs: No Physical Exam ED Vital Signs: Vital Signs - 24 hr 09/08/23 06:36 09/08/23 07:23 09/08/23 09:24 Temperature 98.5 F 97.7 F Pulse Rate 72 77 68 Respiratory Rate 16 12 16 Blood Pressure 115/63 140/70 H 149/70 H Pulse Oximetry 92 90 L 96 Oxygen Delivery Method Room Air Room Air Room Air BMI result Body Mass Index 18.9 Const General: cooperative, no acute distress, alert and awake Nutritional Appearance: well nourished Orientation/consciousness: patient oriented x3 Limitations: no limitations HENMT Head: Yes normal to inspection and Yes atraumatic Ears: hearing grossly normal bilaterally and external ears normal General nose exam: Normal external nose present, no nasal discharge noted and no epistaxis Face and sinus: Yes normal facial exam, No abrasion and No laceration Mouth: Normal oral and palatal mucosa present, no drooling and no muffled voice Eyes General: appearance normal, both eyes and all related structures Periorbital: periorbital findings normal Eyelids: Yes eyelids normal Conjunctivae: conjunctivae normal Pupils: Equal, round and reactive pupils present EOM: EOMs intact bilaterally Neck Neck: Yes normal visual inspection, Yes full ROM and Yes no lymphadenopathy Chest Chest palpation & inspection: normal inspection of the chest Resp Effort & Inspection: normal respiratory effort and able to speak in complete sentences GI Other: left inguinal hernia easily reducible Inspection: Yes normal to inspection Palpation (GI): Soft to palpation, not firm, nontender and no guarding Neuro General: patient oriented x3 and moves all extremities Cranial nerves: Yes Equal, round and reactive pupils present Cognition (Neuro): normal cognition Motor exam (neuro): 5/5 motor strength present throughout Sensory Exam: Normal double simultaneous stimulation for sensation Coordination: [id number] test normal Extrem General: Yes normal to inspection, Yes full ROM and Yes capillary refill normal Psych Appearance: grossly normal Mental Status: mental status grossly normal Affect: normal affect Attitude: cooperative Thought process: Normal thought process present Thought content: Normal thought content present Insight: Good insight present (Psych) Medications Administered Discontinued Medications Generic Name Dose Route Start Last Admin Trade Name Natalee PRN Reason Stop Dose Admin Hydromorphone HCl 0.5 mg 09/08/23 06:42 09/08/23 08:21 Hydromorphone Hcl 0.5 Mg/0.5 Ml Syringe IVPUSH 09/08/23 06:43 0.5 mg ONCE ONE Administration Protocol Potassium Chloride 10 meq in 100 mls @ 100 mls/hr 09/08/23 07:14 09/08/23 09:35 Potassium Chloride/H20 IV 09/08/23 08:13 100 mls/hr ONCE ONE Infusion Iohexol 85 ml 09/08/23 08:28 09/08/23 08:28 Iohexol 350 Mg/Ml 100 Ml Infus..Btl IV 09/08/23 08:29 85 ml ONCE ONE Administration Ketorolac Tromethamine 15 mg 09/08/23 09:27 09/08/23 09:33 Ketorolac Tromethamine 15 Mg/Ml Vial IVPUSH 09/08/23 09:28 15 mg ONCE ONE Administration Ondansetron HCl 4 mg 09/08/23 06:42 09/08/23 08:19 Ondansetron Hcl 4 Mg/2 Ml Vial IVPUSH 09/08/23 06:43 4 mg ONCE ONE Administration Medical Decision Making Medical Decision Making MDM Narrative: Patient is a 78 year old assigned female at with a history of COPD, opiate use disorder, HTN, left inguinal hernia, and anxiety presenting to the emergency department today with left lower abdominal pain and right hip pain. Patient's physical exam was unremarkable. Patient's blood work showed a very minimal hypokalemia at 3.2 but was otherwise unremarkable. Patient's urine showed no acute process. Patient's abdomen/pelvis CT showed moderate constipation. I explained my physical exam findings as well as all test results to the patient. I answered all questions asked by the patient. Patient immediately requested opiate type pain medication. Patient explained that this pain actually isn't new and she has had it for years, without relief. I explained to the patient that opiate based pain medication would make this problem worse as it would worsen her constipation. Patient then told me she was no longer taking her anti-coagulant medication. I offered her Toradol for pain relief. She accepted however, she continued to also request opiate based pain medication which I continued to decline. Patient was offered an enema which she refused. I stressed the importance of the patient taking her medication as prescribed. I stressed the importance of the patient following up with her primary care provider and a pain specialist. I stressed the importance of the patient returning to the emergency department immediately if her symptoms were to worsen or if she were to develop any dizziness, shortness of breath, difficulty breathing, chest pain, blurry vision, loss of vision, nausea, vomiting, abdominal pain, fever, chills, back pain, or any other complaints. Patient verbalized agreement and understanding with this treatment plan and discharge. Differential Diagnosis Differential Diagnoses: The differential diagnosis associated with the presentation includes Chronic pain Drug seeking behavior Constipation Admission/Observation Consideration of admission/observation: Escalation of care including admission/observation considered Patient would have been admitted to the hospital had her work up had any findings where hospital admission was appropriate and her clinical presentation warranted hospital admission. Lab Data [facility] Lab Attestation statement: I reviewed the patient's lab results. My interpretation of these results are in the [facility] Rationale portion of this note. 09/08/23 06:51 09/08/23 06:51 Labs: Lab Results 09/08/23 09/08/23 Range/Units 06:51 09:24 WBC 8.0 (4.8-10.8) X10*3/uL RBC 4.45 (4.20-5.50) X10*6/uL Hgb 13.8 (12.0-16.0) g/dl Hct 42.3 (37.0-47.0) % MCV 95.1 (80.0-98.0) fL MCH 31.0 (27.0-33.0) pg MCHC 32.6 (31.0-35.0) g/dl RDW 14.6 (11.0-16.0) % Plt Count 182 (160-400) X10*3/uL MPV 10.8 (9.4-12.3) fL Immature Gran % (Auto) 0.4 (0.0-0.4) % Neut % (Auto) 60.6 (45-73) % Lymph % (Auto) 20.8 (20-40) % Armstrong % (Auto) 14.4 H (2-11) % Eos % (Auto) 3.3 (0-4) % Baso % (Auto) 0.5 (0-2) % Lymph # (Auto) 1.7 (1.2-4.9) X10*3/uL Armstrong # (Auto) 1.2 (0.1-1.2) X10*3/uL Eos # (Auto) 0.3 (0.0-0.4) X10*3/uL Baso # (Auto) 0.0 (0.0-0.2) X10*3/uL Abs Immat Gran (auto) 0.03 (0.00-0.03) X10*3/uL Absolute Neuts (auto) 4.9 (2.0-8.3) x10*3/uL Absolute Nucleated RBC 0.000 (0.0-0.012) X10*3/uL Nucleated RBC % (auto) 0.0 (0.0-0.2) /100WBC Sodium 143 (135-145) mmol/L Potassium 3.2 L D (3.3-5.1) mmol/L Chloride 107 (96-108) mmol/L Carbon Dioxide 30 H (22-29) mmol/L Anion Gap 9 L (12-20) BUN 17 H (9-16) mg/dL Creatinine 0.70 (0.5-1.4) mg/dL Estim Creat Clear Calc 53.0 Estimated GFR > 60 Random Glucose 89 (60-115) mg/dL Calcium 9.3 (8.4-10.2) mg/dL Total Bilirubin 0.6 (0.0-1.0) mg/dL AST 19 (5-31) U/L ALT 8 (0-31) U/L Alkaline Phosphatase 128 H (39-117) U/L Total Protein 6.7 (6.5-8.0) g/dL Albumin 3.9 (3.5-5.0) g/dL Lipase 25 (8-78) U/L Urine Color Yellow Urine Appearance Clear Urine pH 6.0 (5.0-9.0) Ur Specific Seaton >= 1.030 H (1.005-1.025) Urine Protein Negative (Neg-Trace) mg/dL Urine Glucose (UA) Negative (Negative) mg/dL Urine Ketones Negative (Negative) mg/dL Urine Blood Negative (Negative) Urine Nitrite Negative (Negative) Ur Leukocyte Esterase Negative (Negative) Independent Interpretation I performed an independent interpretation of an: CT Scan Interpretation: My interpretation is in agreement with the radiologist's impression of these imaging studies. Examination: CT brain and CT cervical spine without contrast. Clinical indications: Fall on anticoagulants. COMPARISON: CT brain and CT cervical spine 02/02/2019. TECHNIQUE: 5 mm thin axial and reformatted 2 mm thin sagittal and coronal images of brain were obtained. Subsequently axial 3 mm thin and reformatted 2 mm thin sagittal and coronal images of cervical spine were obtained. DLP 1492. This CT examination was performed using dose optimization technique as appropriate, variously including the following: Automated exposure control Adjustment of MA and/or KV according to patient size(this includes techniques or standardized protocols for targeted exams where dose is matched to indication/reason for exam; extremities or head. Use of iterative reconstruction techniques. FINDINGS: Brain: There is no acute intra-axial, extra-axial bleed, masses or midline shift there is no acute infarction evolution. There is no edema. The valadez to white matter difference is maintained. The lateral ventricles are symmetrical in size and configuration without enlargement. Bone windows reveal no calvarial abnormality. No scalp soft tissue abnormality seen. Bilateral paranasal sinuses and mastoid air cells are well-aerated. There is midline frontoparietal and left parietal skin thickening likely contusion. Cervical spine: There is reversal of cervical lordosis. The vertebral heights and alignment is normal. There is loss of C4-C5, C5-C6 and C6-C7 disc heights with mild ventral and posterior spondylosis. The craniovertebral junction and the C1-C2 alignment is normal. There is no visible acute fracture, dislocation or subluxation seen. No aggressive lytic or sclerotic process. There is moderate bilateral facet joint arthropathy from C2-C3 through C4-C5 disc levels. The prevertebral soft tissues are normal. CT/CT head/brain wo IV con IMPRESSION: 1. No acute intracranial process seen. 2. There is midline frontoparietal and left parietal skin thickening likely contusion. No calvarial fracture seen. 3. Reversal of cervical lordosis with degenerative disc changes C4-C5, C5-C6 and C6-C7 disc levels with ventral and posterior spondylosis. No visible acute fracture, dislocation or subluxation seen. Dictated By: Brando Shi MD Signed By: Electronically signed by Brando Shi MD 09/08/23 0858 EXAMINATION: CT ABDOMEN AND PELVIS WITH CONTRAST CLINICAL INFORMATION: Left lower quadrant abdominal pain. Right hip pain COMPARISON: CT abdomen and pelvis 02/02/2019. TECHNIQUE: Multidetector volumetric images were obtained from the superior aspect of the liver through the pubic symphysis following administration 85 mL of Omnipaque 350 intravenous contrast. Sagittal and coronal reformatted images were obtained on the technologist's workstation. Oral contrast: No This CT examination was performed using dose optimization techniques as appropriate, variously including the following: *Automated exposure control *Adjustment of mA and/or kV according to patient size (this includes techniques or standardized protocols for targeted exams where dose is matched to indication/reason for exam; i.e. extremities or head) *Use of iterative reconstruction technique DLP: 1492 mGy-cm FINDINGS: LUNG BASES: There is patchy scarring or atelectasis in both lung bases with mild emphysema. The heart size enlarged. There are pacer electrodes in right atrium and right ventricle. LIVER, GALLBLADDER, AND BILIARY TREE: The liver is normal in size, shape, and attenuation. There is a known 7 cm cyst in the right hepatic lobe, stable. No additional lesions seen. There is a prominent double duct sign similar to previous study. No intrahepatic ductal dilatation seen. The gallbladder is unremarkable with no evidence of radiopaque gallstones, gallbladder wall thickening, or obvious pericholecystic inflammatory changes. PANCREAS: Unremarkable. SPLEEN: Unremarkable. ADRENAL GLANDS: The right adrenal gland is enlarged with likely 1.4 cm hypodense nodule. Previously measured 0.9 cm. Left adrenal gland is mildly enlarged. KIDNEYS AND URETERS: The kidneys are normal in size, shape, and attenuation. No hydronephrosis, hydroureter, or calculi seen. No perinephric stranding. There is a 1 cm cyst midpole left kidney. Few scattered low-density lesions likely smaller cyst are seen in both kidneys. BLADDER: Unremarkable. GASTROINTESTINAL TRACT: There is moderate stool, diverticuli and gas seen throughout the colon without distention. The small bowel loops are normal caliber. Appendix appears normal caliber. The stomach is nondistended. No free air or free fluid seen. ABDOMINAL WALL: No significant hernia is appreciated. LYMPH NODES: Normal. VASCULAR: There is evidence for calcification of abdominal aorta without aneurysmal dilatation. PELVIC VISCERA: The pelvis is limited in evaluation secondary to beam hardening artifacts from bilateral hip prosthesis. No free fluid suspected. OSSEOUS STRUCTURES: There are bilateral hip prosthesis and levoscoliosis of lumbar spine. Degenerative disc changes are seen throughout lumbar spine with osteoporotic deformities, Schmorl's node but no acute fracture suspected. CT/CT abdomen pelvis w IV con IMPRESSION: Emphysema patchy atelectasis/scarring both lung bases. 7 mm liver cyst, bilateral renal cysts and bilateral adrenal enlargement with a nodule in the right gland. The right adrenal gland nodule has slightly increased. Colonic diverticulosis with moderate to significant constipation. No diverticulitis. Fleischner guidelines were followed. Dictated By: Brando Shi MD Signed By: Electronically signed by Brando Shi MD 09/08/23 8605 Radiology Impression Discussion of test interpretation with radiology: I have reviewed the radiologist's reading. Independent Historian Clinical information obtained from an independent historian. History obtained from or confirmed by: EMS (EMS provided additional history and confirmed the history provided by the patient.) External Record Review External record reviewed: Inpatient record, Office record, Outpatient record and Prior outpatient labs Discharge Plan Discharge Clinical Impression: Chronic pain, Constipation, Acute hypokalemia Patient Disposition: Home, Self-Care Instructions: Constipation (ED), Potassium Content of Foods List (ED), Hypokalemia (ED), Chronic Pain (ED) Additional Instructions: Follow up with your primary care provider and the pain specialist. Return to the emergency department immediately if your symptoms worsen or if you develop any dizziness, shortness of breath, difficulty breathing, chest pain, blurry vision, loss of vision, nausea, vomiting, abdominal pain, fever, chills, back pain, or any other complaints. Prescriptions: [place] Enema 19-7 gram/118 mL enema 118 ml MT BEDTIME PRN (Reason: constipation) Qty: 133 0RF No Action clobetasol 0.05 % gel 1 appl topical BID 14 Days Qty: 30 0RF tiotropium bromide 18 mcg capsule, w/inhalation device 1 cap inhalation DAILY 30 Days Qty: 30 3RF acetaminophen 500 mg tablet 1,000 mg PO Q6H PRN (Reason: pain) 30 Days Qty: 240 0RF mupirocin 2 % ointment 1 appl topical BID 30 Days Qty: 22 0RF lisinopril 10 mg tablet 10 mg PO DAILY 90 Days Qty: 90 1RF valacyclovir 1 gram tablet 1,000 mg PO TID 7 Days Qty: 21 0RF propranolol 60 mg capsule,extended release 24 hr 60 mg PO DAILY Qty: 90 3RF pregabalin 25 mg capsule 25 mg PO DAILY 30 Days Qty: 30 0RF Xarelto 20 mg tablet 20 mg PO DAILY Qty: 90 2RF amoxicillin 500 mg capsule 500 mg PO Q8H Qty: 30 0RF flecainide 100 mg tablet 100 mg PO Q12H 30 Days Qty: 60 0RF Rx Instructions: MUST ATTEND NEXT OFFICE VISIT alprazolam 0.5 mg tablet 0.5 mg PO TID PRN (Reason: anxiety) 30 Days Qty: 90 0RF fluticasone furoate-vilanterol [Breo Ellipta] 100-25 mcg/dose blister with device 1 ea inhalation DAILY Qty: 180 3RF ketoconazole 2 % shampoo 1 appl topical 2XW Qty: 120 0RF lidocaine 5 % ointment 1 appl topical BEDTIME PRN (Reason: pain) 30 Days Qty: 30 1RF buprenorphine-naloxone [Suboxone] 2-0.5 mg film 1 film sublingual DAILY Qty: 28 0RF Referrals: [facility] [Provider Group] (Call to establish and follow up with a pain specialist.) Fany Bobby MD [Primary Care Provider] - Print Language: Greenlandic
[2023-09-08 06:34] VITALS: BP 129/95; PULSE 97; O2SAT 95; BMI 18.9
[2023-09-08 06:36] VITALS: BP 115/63; PULSE 72; RESP 16; TEMP 36.9; O2SAT 92
[2023-09-08 06:55] LABS: MANUAL DIFF FLAG NO
--- NOTE | 2023-09-08 06:56 | PC.NURSE ---
pt on monitor, IV placed, labs drawn. pt aware of plan of care. no apparent distress at this time.
[2023-09-08 07:01] LABS: Basophils Percent Auto 0.5 % (0-2); Eosinophils Absolute Auto 0.3 X10*3/uL (0.0-0.4); Eosinophils Percent Auto 3.3 % (0-4); Hematocrit 42.3 % (37.0-47.0); Hemoglobin 13.8 g/dl (12.0-16.0); Imm Gran Abs Auto 0.03 X10*3/uL (0.00-0.03); Imm Gran Pct Auto 0.4 % (0.0-0.4); Lymphocytes Absolute Auto 1.7 X10*3/uL (1.2-4.9); Lymphocytes Percent Auto 20.8 % (20-40); Mean Corpuscular HGB Conc 32.6 g/dl (31.0-35.0); Mean Corpuscular Volume 95.1 fL (80.0-98.0); Mean Platelet Volume 10.8 fL (9.4-12.3); Monocytes Absolute Auto 1.2 X10*3/uL (0.1-1.2); Monocytes Percent Auto 14.4 % (2-11); Neutrophils Absolute Auto 4.9 x10*3/uL (2.0-8.3); Neutrophils Percent Auto 60.6 % (45-73); Platelet Count 182 X10*3/uL (160-400); Red Blood Count 4.45 X10*6/uL (4.20-5.50); Red Cell Distribution Width 14.6 % (11.0-16.0)
[2023-09-08 07:09] LABS: Alanine Aminotransferase 8 U/L (0-31); Albumin Level 3.9 g/dL (3.5-5.0); Alkaline Phosphatase 128 U/L (39-117); Anion Gap 9 (12-20); Aspartate Amino Transferase 19 U/L (5-31); Bilirubin Total 0.6 mg/dL (0.0-1.0); Blood Urea Nitrogen 17 mg/dL (9-16); Calcium 9.3 mg/dL (8.4-10.2); Carbon Dioxide 30 mmol/L (22-29); Chloride 107 mmol/L (96-108); Estimated Glomerular Filt Rate > 60; Glucose Random 89 mg/dL (60-115); Lipase 25 U/L (8-78); Potassium 3.2 mmol/L (3.3-5.1); Sodium 143 mmol/L (135-145); Total Protein 6.7 g/dL (6.5-8.0)
[2023-09-08 07:23] VITALS: BP 140/70; PULSE 77; RESP 12; O2SAT 90
[2023-09-08] MEDS: ondansetron HCL 4 MG/2 ML VIAL IVPUSH (08:19)
[2023-09-08] MEDS: HYDROmorphone HCl 0.5 MG/0.5 ML SYRINGE IVPUSH (08:21)
[2023-09-08] MEDS: Potassium Chloride/H20 10 MEQ/100 ML PIGGYBACK 100 MEQ IV (08:23)
[2023-09-08] MEDS: iohexoL 350 MG/ML 100 ML INFUS..BTL 85 ML IV (08:28)
--- NOTE | 2023-09-08 09:02 | PC.NURSE ---
pt resting/calm/coop. no complaints. regular breathing rate/depth. K continues
[2023-09-08 09:24] VITALS: BP 149/70; PULSE 68; RESP 16; TEMP 36.5; O2SAT 96
[2023-09-08 09:31] LABS: Appearance Urine Clear; Color Urine Yellow; Glucose Urine UA Negative (Negative); Leukocyte Esterase Urine Negative (Negative); Nitrite Urine Negative (Negative); Specific Gravity - Urine >= 1.030 (1.005-1.025); Urine Blood Negative (Negative); Urine Ketones Negative (Negative); Urine Protein Negative (Neg-Trace)
[2023-09-08] MEDS: Ketorolac Tromethamine 15 MG/ML VIAL IVPUSH (09:33)
--- NOTE | 2023-09-08 09:37 | PC.NURSE ---
per VICENTA carvajal ok to give 1/2 bag of K as pt c/o intolerance to this med via IV
[2023-09-08 10:00] VITALS: RESP 18
--- NOTE | 2023-09-08 10:17 | PC.NURSE ---
pt alert/oriented x4. evans family member on phone state pt's daughter is on way to pick her up and ETA is within the hour. pt brought safely to waiting room in wheelchair w/staff and advised to await for ride. no distress. pt adamantly states that she wants to go outside and smoke cigarettes. encouraged to stay in waiting room. directed to a seat within ride pick-up view/range-pt ambulatory. has discharge instructions and advised to go to pharmacy for enema as needed per PA. vs stable. +breathing.
== END 2023-09-08 10:20 | disposition home or self-care (01) ==
PROVIDERS: Physician Assistant Medical; Emergency Provider Emergency Medicine; PCP Internal Medicine
DX: G89.29 Other chronic pain (principal); K59.00 Constipation, unspecified; E87.6 Hypokalemia; R10.32 Left lower quadrant pain; I10 Essential (primary) hypertension; I48.0 Paroxysmal atrial fibrillation; Z95.0 Presence of cardiac pacemaker; Z79.01 Long term (current) use of anticoagulants; Z79.899 Other long term (current) drug therapy
CPT/HCPCS: 36415; 70450; 72125; 74177; 80053; 81003; 83690; 85025; 96365; 96375; 99284; 99285; J1170; J1885; J2405; J3480; Q9967

== ENCOUNTER → 2023-09-26 23:59 | Outpatient (BNV) | payer MEDICARE, SELFPAY ==
--- NOTE | 2023-09-26 11:23 | A.OFFVIS_ITS ---
Intake Intake Visit Reasons: Remote Device Check- [employer] Allergies succinylcholine [SUCCINYLCHOLINE] Allergy (Severe, Verified 08/16/23 13:07) EXCESSIVE PARALYSIS tramadol Allergy (Intermediate, Verified 08/16/23 13:07) diarrhea, upset stomach cat dander [CATS] Allergy (Mild, Verified 08/16/23 13:07) UNKNOWN dog dander [DOGS] Allergy (Mild, Verified 08/16/23 13:07) UNKNOWN pollen extracts [POLLEN] Allergy (Mild, Verified 08/16/23 13:07) UNKNOWN buprenorphine [From Suboxone] Adverse Reaction (Severe, Verified 08/16/23 13:07) Hives naloxone [From Suboxone] Adverse Reaction (Severe, Verified 08/16/23 13:07) Hives gabapentin Adverse Reaction (Mild, Verified 08/16/23 13:07) Nausea and Vomiting DUST Allergy (Mild, Uncoded 08/16/23 13:07) UNKNOWN [facility] Medical History Upper respiratory tract infection Skin lesion of face Skin abscess Hospital discharge follow-up Laceration of elbow, right Contusion of elbow, right Right knee skin infection Knee pain Pacemaker Sinus pause Opioid use disorder COPD with acute exacerbation COPD (chronic obstructive pulmonary disease) Left knee pain Paroxysmal atrial fibrillation Knee pain Abdominal pain Smoker Neurodermatitis COPD exacerbation Scalp abscess Vaginal discharge Skin lesion Osteoarthritis of thoracic spine Anxiety Surgical History History of basal cell carcinoma (BCC) excision Mammogram declined History of bilateral cataract extraction History of ectopic History of hip replacement History of nasal surgery Family History Father No problems noted. Mother No problems noted. Social History Housing: Apartment Alcohol intake: current Patient Tobacco Use Status: Current everyday Tobacco user Tobacco use type: Cigarette Cigarettes Per Day: 6 Years Smoked: 50 +/- e-Cigarette/Vaping Use: Never Used Second Hand Smoke Exposure: Yes service: No Current occupational status: retired and disabled Cognitive needs: Yes Hearing needs: No Vision needs: No Office Procedures Cardiac Device Check Cardiac Device Check Details: Remote pacemaker report generated 09/26/2023. Very low burden of atrial fibrillation at 3 0.2%. Pacer function is adequate overall [id number] Cardiac Device Check, pacemaker dual lead Procedure code (CPT) selection complete Assessment & Plan Assessment & Plan (1) Pacemaker: Comment: Medtronic dual-chamber pacemaker placement 12/07/2021 Code(s): Z95.0 - Presence of cardiac pacemaker Plan See above. Patient needs office visit Coding Level of Care Code Procedure Only Diagnoses Pacemaker Z95.0 CPT Codes Cardiac Device Check - Cardiac Device 2: 83662-[id number] Cardiac Device Check, pacemaker dual lead ([id number])
== END ==
PROVIDERS: PCP Internal Medicine; Visit Provider Internal Medicine Cardiovascular Disease
DX: I48.0 Paroxysmal atrial fibrillation (principal); Z95.0 Presence of cardiac pacemaker
CPT/HCPCS: 93294

== ENCOUNTER → 2023-09-28 10:29 | Outpatient (BNVA) | payer MEDICARE, SELFPAY | PROVIDERS: PCP Internal Medicine; Visit Provider Anesthesiology | DX: M41.9 Scoliosis, unspecified (principal); S13.4XXA Sprain of ligaments of cervical spine, initial encounter; M47.816 Spondylosis without myelopathy or radiculopathy, lumbar region; M17.11 Unilateral primary osteoarthritis, right knee; F11.20 Opioid dependence, uncomplicated; L28.0 Lichen simplex chronicus | CPT/HCPCS: 99212 ==

== ENCOUNTER 2023-09-28 10:30 | Outpatient (AMB) | payer MEDICARE, SELFPAY ==
--- NOTE | 2023-09-28 10:33 | A.OFFVIS_ITS ---
Intake Vital Signs 09/28/23 10:47 Height 5 ft 4 in Weight 113 lb 2 oz BMI 19.4 BP 160/72 H Blood Pressure Location Lt brachial Position Sitting Respiration 14 Pulse 78 Pulse Source Pulse Oximeter Pulse Oximetry (%) 94 Oxygen Delivery Method Room Air Intake Visit Reasons: Head & Back Pain/lvm Allergies succinylcholine [SUCCINYLCHOLINE] Allergy (Severe, Verified 09/28/23 10:47) EXCESSIVE PARALYSIS tramadol Allergy (Intermediate, Verified 09/28/23 10:47) diarrhea, upset stomach cat dander [CATS] Allergy (Mild, Verified 09/28/23 10:47) UNKNOWN dog dander [DOGS] Allergy (Mild, Verified 09/28/23 10:47) UNKNOWN pollen extracts [POLLEN] Allergy (Mild, Verified 09/28/23 10:47) UNKNOWN buprenorphine [From Suboxone] Adverse Reaction (Severe, Verified 09/28/23 10:47) Hives naloxone [From Suboxone] Adverse Reaction (Severe, Verified 09/28/23 10:47) Hives gabapentin Adverse Reaction (Mild, Verified 09/28/23 10:47) Nausea and Vomiting DUST Allergy (Mild, Uncoded 08/16/23 13:07) UNKNOWN HPI HPI Comments History of Present Illness Details Yamileth is back into my office after more than 1 year of absence. She previously was under observation in this office and she was referred to me for g enicular nerve block. She unfortunately did not attend that injection. Today she came to me with multiple complaints on multiple pain generators however she denied the pain coming from her knees.. She reported that she was operated on basal cell carcinoma of her scalp skin. She also reported multiple lesions of lichen planus on the scalp which are according to her give her intractable pain. She also complains on pain on the base of her skull in the projection of atlantooccipital joints she reports that this pain radiates to the back of her head and down the bilateral posterior neck. She also complains on pain in the lumbar spine which is severe however not as bad as the pain in the head in the neck. She denies any images of the lumbar spine of cervical spine in the past. She stated that she had an MRI of the lumbar spine at the same time she stated that she has a pacemaker. I am not sure if it is possible to have an MRI with pacemaker. Prior: She was under care of Dr. Price in the past with opioid medication prescriptions for the several years. She broke the contract once and she was suspended indefinitely for her opioid medications. Currently she presented here with Dr. Henson referral for the performance of right knee genicular nerve block. She has right knee deformed with very limited range of motion. I presume it is very advanced osteoarthritis on the right knee. I offered her diagnostic genicular nerve block with good results will perform radiofrequency ablation of the genicular nerves [facility] Medical History Upper respiratory tract infection Skin lesion of face Skin abscess Hospital discharge follow-up Laceration of elbow, right Contusion of elbow, right Right knee skin infection Knee pain Pacemaker Sinus pause Opioid use disorder COPD with acute exacerbation COPD (chronic obstructive pulmonary disease) Left knee pain Paroxysmal atrial fibrillation Knee pain Abdominal pain Smoker Neurodermatitis COPD exacerbation Scalp abscess Vaginal discharge Skin lesion Osteoarthritis of thoracic spine Anxiety Surgical History History of basal cell carcinoma (BCC) excision Mammogram declined History of bilateral cataract extraction History of ectopic History of hip replacement History of nasal surgery Family History Father No problems noted. Mother No problems noted. Social History Housing: Apartment Alcohol intake: current Patient Tobacco Use Status: Current everyday Tobacco user Tobacco use type: Cigarette Cigarettes Per Day: 6 Years Smoked: 50 +/- e-Cigarette/Vaping Use: Never Used Second Hand Smoke Exposure: Yes service: No Current occupational status: retired and disabled Cognitive needs: Yes Hearing needs: No Vision needs: No Review of Systems Const All systems reviewed & are unremarkable except as noted in HPI and below Resp Reports no additional complaints GI Reports no additional complaints Musc Reports as per HPI Physical Exam Vital Signs: Last Vital Signs Pulse 78 09/28/23 10:47 Resp 14 09/28/23 10:47 BP 160/72 H 09/28/23 10:47 Pulse Ox 94 09/28/23 10:47 Oxygen Delivery Method Room Air 09/28/23 10:47 BMI result Body Mass Index 19.4 Const General: no acute distress and alert Orientation/consciousness: patient oriented x3 HEENT Other: Inspection of the head reveals multiple lesions on the skin of the scalp. Neck Other: Tenderness on palpation in projection of atlantooccipital joints. Neuro General: patient oriented x3 Assessment & Plan Assessment & Plan (1) Scoliosis of lumbar spine: Code(s): M41.9 - Scoliosis, unspecified Plan: I offered this patient to go for x-ray of the lumbar spine to evaluate her scoliosis and spondylosis. She is very unfortunate 78 years old female suffering from opioid use disorder. She is under Suboxone treatment. She was suspended from our opioid treatment in our office when she was under care of Dr. Price. She suffers from skin lesions from the scalp which gives her most of the pain in the skull. Unfortunately nothing I can do there to help her with this pain. The lesions are I had spread and multiple. I recommended her to find a plastic surgeon/field evidence technician who will be able to evaluate her skin lesions, take care of the basal cell carcinoma on her skull as well as may be remove some lesions with plastic surgery techniques. Some medications applied to her skull from field evidence technician could be also effective in treating her pain in the skull. I suspect that pain in the neck this patient related to atlantooccipital joints arthritis. Injection of the atlantooccipital joints with steroids could be offered to the patient however I personally never performed this procedure. None of my colleagues around also doing this procedure. I offered her referral to [facility] to make this injection however the patient refused citing that it is too far way. I will schedule appointment with this patient in 2 weeks to evaluate her x-ray. I also need consult from her dot compliance specialist whether not patient is able to go for lumbar spine MRI. (2) Spondylosis of lumbar region without myelopathy or radiculopathy: Code(s): M47.816 - Spondylosis without myelopathy or radiculopathy, lumbar region Plan: (3) Sprain of atlanto-occipital joint: Code(s): S13.4XXA - Sprain of ligaments of cervical spine, initial encounter Plan: (4) Lichen simplex chronicus: Code(s): L28.0 - Lichen simplex chronicus Plan: (5) Osteoarthritis of right knee: Code(s): M17.11 - Unilateral primary osteoarthritis, right knee Plan: (6) Opioid use disorder: Code(s): F11.90 - Opioid use, unspecified, uncomplicated Plan: Orders: Orders XR lumbar spine 4V min 09/28/23 M41.9 - Scoliosis, unspecified, M47.816 - Spondylosis without myelopathy or radiculopathy, lumbar region Patient Instructions: I here by testify that I spent 35 minutes in conversation with this patient as well as evaluating her prior records and prior images as well as organizing this note. Coding Level of Care Code Est Pt Level 4 (69977) Diagnoses Scoliosis of lumbar spine M41.9 Spondylosis of lumbar region without myelopathy or radiculopathy M47.816 Sprain of atlanto-occipital joint S13.4XXA Lichen simplex chronicus L28.0 Osteoarthritis of right knee M17.11 Opioid use disorder F11.90
[2023-09-28 10:47] VITALS: BP 160/72; PULSE 78; RESP 14; O2SAT 94; BMI 19.4
== END 2023-09-28 11:11 | disposition home or self-care (01) ==
PROVIDERS: PCP Internal Medicine; Visit Provider Anesthesiology
DX: M41.9 Scoliosis, unspecified (principal); M47.816 Spondylosis without myelopathy or radiculopathy, lumbar region; M17.11 Unilateral primary osteoarthritis, right knee; Z79.891 Long term (current) use of opiate analgesic; L28.0 Lichen simplex chronicus; S13.4XXA Sprain of ligaments of cervical spine, initial encounter
CPT/HCPCS: 99214

== ENCOUNTER 2023-09-30 14:40 | Outpatient (REF) | payer MEDICARE, SELFPAY ==
--- NOTE | ~2023-09-30 | XR_ITS ---
EXAMINATION: XR LUMBOSACRAL SPINE WITH OBLIQUES CLINICAL INFORMATION: Scoliosis. COMPARISON: CT abdomen and pelvis of 09/08/2023. CT scan of 02/02/2019. TECHNIQUE: AP, both oblique, and lateral views of the lumbar spine. Lateral view of the lumbosacral junction. FINDINGS: The bones are diffusely demineralized. Bilateral total hip prostheses minimally imaged. Pacer leads minimally imaged overlying the heart. Dextroscoliosis of the lumbar spine with advanced multilevel facet arthritis. Advanced atherosclerotic aortoiliac calcifications. Multiple rounded pelvic calcifications. Multilevel compression deformities most notable at L1, L2 and L4 are difficult to fully evaluate due to bony demineralization and scoliosis. Advanced multilevel degenerative changes with loss of disc space height most notable at L2-L3. XR/XR lumbar spine 4V min IMPRESSION: 1. Advanced multilevel degenerative disc disease most notable at L2-L3. 2. Multilevel compression deformities most notable at L1, L2 and L4 are difficult to fully evaluate due to bony demineralization and scoliosis. Similar findings were identified on CT abdomen and pelvis of 09/08/2023. CT chest of 02/02/2019 also demonstrated endplate compression deformities. Correlation with clinical exam recommended to determine further management. If there is concern for fracture or other underlying pathology, MRI could be obtained for further evaluation.
== END 2023-09-30 14:41 | disposition home or self-care (01) ==
LOC: HO.XRAY 14:40
PROVIDERS: PCP Internal Medicine; Visit Provider Anesthesiology
DX: M47.816 Spondylosis without myelopathy or radiculopathy, lumbar region (principal); M41.9 Scoliosis, unspecified
CPT/HCPCS: 72110

== ENCOUNTER 2023-10-07 09:16 | Outpatient (AMB) | payer MEDICARE, SELFPAY ==
--- NOTE | 2023-10-07 09:16 | A.OFFVISCC_ITS ---
Intake Intake Visit Reasons: MAT Visit Allergies succinylcholine [SUCCINYLCHOLINE] Allergy (Severe, Verified 09/28/23 10:47) EXCESSIVE PARALYSIS tramadol Allergy (Intermediate, Verified 09/28/23 10:47) diarrhea, upset stomach cat dander [CATS] Allergy (Mild, Verified 09/28/23 10:47) UNKNOWN dog dander [DOGS] Allergy (Mild, Verified 09/28/23 10:47) UNKNOWN pollen extracts [POLLEN] Allergy (Mild, Verified 09/28/23 10:47) UNKNOWN buprenorphine [From Suboxone] Adverse Reaction (Severe, Verified 09/28/23 10:47) Hives naloxone [From Suboxone] Adverse Reaction (Severe, Verified 09/28/23 10:47) Hives gabapentin Adverse Reaction (Mild, Verified 09/28/23 10:47) Nausea and Vomiting DUST Allergy (Mild, Uncoded 08/16/23 13:07) UNKNOWN HPI MAT Visit HPI Details This is a 78 yo female that presents via telehealth for OUD treatment and follow up She is mildly irritable, says she just woke up She reports that she has been experiencing challenges with pain all over she states nothing seems to work well She does report that she is being followed by pain management She is unsure how helpful the suboxone is and is debating whether she would like to continue. However, she is not ready to stop the suboxone just yet. She is denying concern for side effects at this time [facility] Medical History Upper respiratory tract infection Skin lesion of face Skin abscess Hospital discharge follow-up Laceration of elbow, right Contusion of elbow, right Right knee skin infection Knee pain Pacemaker Sinus pause Opioid use disorder COPD with acute exacerbation COPD (chronic obstructive pulmonary disease) Left knee pain Paroxysmal atrial fibrillation Knee pain Abdominal pain Smoker Neurodermatitis COPD exacerbation Scalp abscess Vaginal discharge Skin lesion Osteoarthritis of thoracic spine Anxiety Surgical History History of basal cell carcinoma (BCC) excision Mammogram declined History of bilateral cataract extraction History of ectopic History of hip replacement History of nasal surgery Family History Father No problems noted. Mother No problems noted. Social History Housing: Apartment Alcohol intake: current Patient Tobacco Use Status: Current everyday Tobacco user Tobacco use type: Cigarette Cigarettes Per Day: 6 Years Smoked: 50 +/- e-Cigarette/Vaping Use: Never Used Second Hand Smoke Exposure: Yes service: No Current occupational status: retired and disabled Cognitive needs: Yes Hearing needs: No Vision needs: No Review of Systems Const Details: -reports chronic low back pain Reports as per HPI and Reports body aches Assessment & Plan Assessment & Plan (1) Opioid use disorder: Code(s): F11.90 - Opioid use, unspecified, uncomplicated Plan: Suboxone refilled Follow up 4 weeks via telehealth Medications: Refilled buprenorphine-naloxone 2-0.5 mg (Suboxone) 1 film sublingual DAILY 28 ea 0RF Telehealth Telehealth Location of provider rendering services: practice address Location of patient: address on file Patient Identification confirmed using: Name, : Yes Telehealth method: voice only Patient verbally consented to treatment: Yes Patient verbally consented to billing insurance company: Yes Patient informed of any privacy concerns related to visit: Yes Coding Level of Care Code Tele Est Pt Level 3 (44023) Diagnoses Opioid use disorder F11.90
== END 2023-10-07 09:30 | disposition home or self-care (01) ==
PROVIDERS: PCP Internal Medicine; Visit Provider Nurse Practitioner Family
DX: F11.90 Opioid use, unspecified, uncomplicated (principal)
CPT/HCPCS: 99441

== ENCOUNTER → 2023-10-07 09:16 | Outpatient (BNVA) | payer MEDICARE, SELFPAY | PROVIDERS: PCP Internal Medicine; Visit Provider Nurse Practitioner Family ==

== ENCOUNTER 2023-11-14 14:21 | Outpatient (AMB) | payer MEDICARE, SELFPAY ==
--- NOTE | 2023-11-14 14:40 | MHC.OFFVIS ---
Intake Vital Signs 11/14/23 14:48 Height 5 ft 4 in Weight 113 lb 2 oz BMI 19.4 BP 140/90 H Blood Pressure Location Lt brachial Position Sitting Respiration 14 Pulse 80 Pulse Source Pulse Oximeter Pulse Oximetry (%) 93 Oxygen Delivery Method Room Air Intake Visit Reasons: Follow Up/X-Ray Results Intake Note: Patient comes in for a follow up. Reports pain 05/26. Allergies succinylcholine [SUCCINYLCHOLINE] Allergy (Severe, Verified 11/14/23 14:48) EXCESSIVE PARALYSIS tramadol Allergy (Intermediate, Verified 11/14/23 14:48) diarrhea, upset stomach cat dander [CATS] Allergy (Mild, Verified 11/14/23 14:48) UNKNOWN dog dander [DOGS] Allergy (Mild, Verified 11/14/23 14:48) UNKNOWN pollen extracts [POLLEN] Allergy (Mild, Verified 11/14/23 14:48) UNKNOWN buprenorphine [From Suboxone] Adverse Reaction (Severe, Verified 11/14/23 14:48) Hives naloxone [From Suboxone] Adverse Reaction (Severe, Verified 11/14/23 14:48) Hives gabapentin Adverse Reaction (Mild, Verified 11/14/23 14:48) Nausea and Vomiting DUST Allergy (Mild, Uncoded 08/16/23 13:07) UNKNOWN HPI HPI Comments History of Present Illness Details Yamileth is back in my office to discuss possibility of further treatment. We x-rays of the lumbar spine and she is here to discuss the results. The report is dictated as below. I offered this patient medial branch blocks L3-L4 does ramus L5 to help to diagnose her pain. Most likely the compression fractures which are demonstrated there are old fractures and would not be treated with kyphoplasty or vertebroplasty. Unfortunately it has not possible to establish the age of the fractures because the patient has a pacemaker and unable to go to MRI machine. I offered her to refer her to another mold tooling technician to evaluate the lesions on her scalp. 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 The patient is also not very satisfied with her mold tooling technician. She requests me to refer her to any mold tooling technician. I will try to do it according to the least of referral i our MR system She previously was under observation in this office and she was referred to me for genicular nerve block. She unfortunately did not attend that injection. Today she came to me with multiple complaints on multiple pain generators however she denied the pain coming from her knees.. She reported that she was operated on basal cell carcinoma of her scalp skin. She also reported multiple lesions of lichen planus on the scalp which are according to her give her intractable pain. She also complains on pain on the base of her skull in the projection of atlantooccipital joints she reports that this pain radiates to the back of her head and down the bilateral posterior neck. She also complains on pain in the lumbar spine which is severe however not as bad as the pain in the head in the neck. She denies any images of the lumbar spine of cervical spine in the past. She stated that she had an MRI of the lumbar spine at the same time she stated that she has a pacemaker. I am not sure if it is possible to have an MRI with pacemaker. Prior: She was under care of Dr. Price in the past with opioid medication prescriptions for the several years. She broke the contract once and she was suspended indefinitely for her opioid medications. Currently she presented here with Dr. Henson referral for the performance of right knee genicular nerve block. She has right knee deformed with very limited range of motion. I presume it is very advanced osteoarthritis on the right knee. I offered her diagnostic genicular nerve block with good results will perform radiofrequency ablation of the genicular nerves [facility] Medical History Upper respiratory tract infection Skin lesion of face Skin abscess Hospital discharge follow-up Laceration of elbow, right Contusion of elbow, right Right knee skin infection Knee pain Pacemaker Sinus pause Opioid use disorder COPD with acute exacerbation COPD (chronic obstructive pulmonary disease) Left knee pain Paroxysmal atrial fibrillation Knee pain Abdominal pain Smoker Neurodermatitis COPD exacerbation Scalp abscess Vaginal discharge Skin lesion Osteoarthritis of thoracic spine Anxiety Surgical History History of basal cell carcinoma (BCC) excision Mammogram declined History of bilateral cataract extraction History of ectopic History of hip replacement History of nasal surgery Family History Father No problems noted. Mother No problems noted. Social History Housing: Apartment Alcohol intake: current Patient Tobacco Use Status: Current everyday Tobacco user Tobacco use type: Cigarette Cigarettes Per Day: 6 Years Smoked: 50 +/- e-Cigarette/Vaping Use: Never Used Second Hand Smoke Exposure: Yes service: No Current occupational status: retired and disabled Cognitive needs: Yes Hearing needs: No Vision needs: No Review of Systems Const All systems reviewed & are unremarkable except as noted in HPI and below ENT Reports Normal hearing present Neuro Reports Normal hearing present, Denies Abnormal speech present, Denies confusion and Denies Sensory deficit (Neuro) Psych Denies confusion Physical Exam Vital Signs: Last Vital Signs Pulse 80 11/14/23 14:48 Resp 14 11/14/23 14:48 BP 140/90 H 11/14/23 14:48 Pulse Ox 93 11/14/23 14:48 Oxygen Delivery Method Room Air 11/14/23 14:48 BMI result Body Mass Index 19.4 Const General: no acute distress; No confusion Orientation/consciousness: patient oriented x3 and No confusion Eyes General: appearance normal, both eyes and all related structures Pupils: Equal, round and reactive pupils present EOM: EOMs intact bilaterally Neck Neck: Yes full ROM Chest Chest palpation & inspection: normal inspection of the chest Resp Effort & Inspection: normal respiratory effort, able to speak in complete sentences, normal respiratory pattern, no audible wheezes and no cough Cardio Jugular venous distension: no JVD GI Inspection: Yes normal to inspection Back/Spine/Pelvis Other: Flexing forward and flexing backwards equally uncomfortable for the patient. Loading test is positive. SLR is negative. Neuro General: patient oriented x3, gait normal and No confusion Cranial nerves: Yes CN's II-XII intact bilaterally, Yes Equal, round and reactive pupils present, Yes Normal hearing present and Yes Ability to bilaterally elevate shoulders present Speech: No Abnormal speech present Gait exam (Neuro): Normal gait present Motor exam (neuro): 5/5 motor strength present throughout Sensory Exam: No Sensory deficit (Neuro) Extrem General: No pedal edema Psych Speech and movement: Normal speech and movement present Affect: normal affect Attitude: cooperative Thought process: Normal thought process present Thought content: Normal thought content present Insight: Good insight present (Psych) Judgement: Good judgement present (Psych) Results Reviewed Results Reviewed: X-ray lumbosacral spine. 09/30/2023. Findings: The bones are diffusely demineralized, bilateral total hip prosthesis minimally imaged. Pacer leads minimally imaged overlying the heart. Dextroscoliosis of the lumbar spine with advanced multilevel facet arthritis. Advanced atherosclerotic aortoiliac calcifications. Multiple rounded pelvic calcifications. Multilevel compression deformities most notable at L1-L2 and L4 are difficult to fully evaluate due to bony demineralization and scoliosis. Advanced multilevel degenerative changes with loss of disc space height most notable at L2-L3 Assessment & Plan Assessment & Plan (1) Scoliosis of lumbar spine: Code(s): M41.9 - Scoliosis, unspecified Plan: She is very unfortunate 78 years old female suffering from opioid use disorder. She is under Suboxone treatment. She was suspended from our opioid treatment in our office when she was under care of Dr. Price. She is suffering from painful skull lesions, she requests me to refer her to mold tooling technician. I offered her referral to mold tooling technician at [facility]. I suspect that pain in the neck this patient related to atlantooccipital joints arthritis. Injection of the atlantooccipital joints with steroids could be offered to the patient however I personally never performed this procedure. None of my colleagues around also doing this procedure. I offered her referral to [facility] to make this injection however the patient refused citing that it is too far way. X-ray report as above. I will schedule her for bilateral medial branch block L3-L4 does ramus L5 bilateral diagnostic to establish the source of her pain.. I am not sure how old the compression fractures are on her images but it is impossible to establish because patient has a pacemaker and unable to go to MRI imaging. (2) Spondylosis of lumbar region without myelopathy or radiculopathy: Code(s): M47.816 - Spondylosis without myelopathy or radiculopathy, lumbar region Plan: (3) Sprain of atlanto-occipital joint: Code(s): S13.4XXA - Sprain of ligaments of cervical spine, initial encounter Plan: (4) Lichen simplex chronicus: Code(s): L28.0 - Lichen simplex chronicus Plan: (5) Osteoarthritis of right knee: Code(s): M17.11 - Unilateral primary osteoarthritis, right knee Plan: (6) Opioid use disorder: Code(s): F11.90 - Opioid use, unspecified, uncomplicated Plan: (7) Basal cell carcinoma of skin: Code(s): C44.91 - Basal cell carcinoma of skin, unspecified Plan: Orders: Referrals Dermatology Referral C44.91 - Basal cell carcinoma of skin, unspecified Coding Level of Care Code Est Pt Level 3 (45064) Diagnoses Scoliosis of lumbar spine M41.9 Spondylosis of lumbar region without myelopathy or radiculopathy M47.816 Sprain of atlanto-occipital joint S13.4XXA Lichen simplex chronicus L28.0 Osteoarthritis of right knee M17.11 Opioid use disorder F11.90 Basal cell carcinoma of skin C44.91
[2023-11-14 14:48] VITALS: BP 140/90; PULSE 80; RESP 14; O2SAT 93; BMI 19.4
== END 2023-11-14 15:11 | disposition home or self-care (01) ==
LOC: HO.PMC 14:21
PROVIDERS: PCP Internal Medicine; Visit Provider Anesthesiology
DX: M41.9 Scoliosis, unspecified (principal); M47.816 Spondylosis without myelopathy or radiculopathy, lumbar region; M17.11 Unilateral primary osteoarthritis, right knee; Z79.891 Long term (current) use of opiate analgesic; C44.91 Basal cell carcinoma of skin, unspecified; S13.4XXA Sprain of ligaments of cervical spine, initial encounter
CPT/HCPCS: 99213

== ENCOUNTER → 2023-11-14 14:21 | Outpatient (BNVA) | payer MEDICARE, SELFPAY | PROVIDERS: PCP Internal Medicine; Visit Provider Anesthesiology | DX: M47.816 Spondylosis without myelopathy or radiculopathy, lumbar region (principal); M41.9 Scoliosis, unspecified; M17.11 Unilateral primary osteoarthritis, right knee; C44.91 Basal cell carcinoma of skin, unspecified; S13.4XXA Sprain of ligaments of cervical spine, initial encounter; F11.20 Opioid dependence, uncomplicated; L28.0 Lichen simplex chronicus | CPT/HCPCS: 99212 ==

== ENCOUNTER 2023-12-06 14:45 | Outpatient (AMB) | payer MEDICARE, SELFPAY ==
--- NOTE | 2023-12-06 17:45 | A.OFFVISCC_ITS ---
Intake Intake Visit Reasons: MAT Allergies succinylcholine [SUCCINYLCHOLINE] Allergy (Severe, Verified 11/14/23 14:48) EXCESSIVE PARALYSIS tramadol Allergy (Intermediate, Verified 11/14/23 14:48) diarrhea, upset stomach cat dander [CATS] Allergy (Mild, Verified 11/14/23 14:48) UNKNOWN dog dander [DOGS] Allergy (Mild, Verified 11/14/23 14:48) UNKNOWN pollen extracts [POLLEN] Allergy (Mild, Verified 11/14/23 14:48) UNKNOWN buprenorphine [From Suboxone] Adverse Reaction (Severe, Verified 11/14/23 14:48) Hives naloxone [From Suboxone] Adverse Reaction (Severe, Verified 11/14/23 14:48) Hives gabapentin Adverse Reaction (Mild, Verified 11/14/23 14:48) Nausea and Vomiting DUST Allergy (Mild, Uncoded 08/16/23 13:07) UNKNOWN HPI MAT HPI Details Patient presents for MAT visit via telehealth She has been experiencing increasing pain to her scalp, hx of skin cancer removal last February She is being follow by pain management She reports to t/w that she is allergic to suboxone, has been so, and gets hives when she uses it She is looking for someone to manage her pain [facility] Medical History Upper respiratory tract infection Skin lesion of face Skin abscess Hospital discharge follow-up Laceration of elbow, right Contusion of elbow, right Right knee skin infection Knee pain Pacemaker Sinus pause Opioid use disorder COPD with acute exacerbation COPD (chronic obstructive pulmonary disease) Left knee pain Paroxysmal atrial fibrillation Knee pain Abdominal pain Smoker Neurodermatitis COPD exacerbation Scalp abscess Vaginal discharge Skin lesion Osteoarthritis of thoracic spine Anxiety Surgical History History of basal cell carcinoma (BCC) excision Mammogram declined History of bilateral cataract extraction History of ectopic History of hip replacement History of nasal surgery Family History Father No problems noted. Mother No problems noted. Social History Housing: Apartment Alcohol intake: current Patient Tobacco Use Status: Current everyday Tobacco user Tobacco use type: Cigarette Cigarettes Per Day: 6 Years Smoked: 50 +/- e-Cigarette/Vaping Use: Never Used Second Hand Smoke Exposure: Yes service: No Current occupational status: retired and disabled Cognitive needs: Yes Hearing needs: No Vision needs: No Review of Systems Const Reports as per HPI Skin/Breast Details: She reports chronic pain to her scalp where she had cancerous lesions removed February 2023 Assessment & Plan Assessment & Plan (1) Opioid use disorder: Code(s): F11.90 - Opioid use, unspecified, uncomplicated Plan: -Suboxone not filled at this time, patient has not been taking it, and claims to be allergic -She would like a call for follow up -Reminded her she has an appointment with pain management 12/08 Telehealth Telehealth Location of provider rendering services: practice address Location of patient: address on file Patient Identification confirmed using: Name, : Yes Telehealth method: voice only Patient verbally consented to treatment: Yes Patient verbally consented to billing insurance company: Yes Patient informed of any privacy concerns related to visit: Yes Coding Level of Care Code Tele Est Pt Level 3 (44685) Diagnoses Opioid use disorder F11.90 Time Spent (min) 35
== END 2023-12-06 15:11 | disposition home or self-care (01) ==
PROVIDERS: PCP Internal Medicine; Visit Provider Nurse Practitioner Family
DX: F11.20 Opioid dependence, uncomplicated (principal)
CPT/HCPCS: 99443

== ENCOUNTER → 2023-12-06 14:45 | Outpatient (BNVA) | payer MEDICARE, SELFPAY | PROVIDERS: PCP Internal Medicine; Visit Provider Nurse Practitioner Family ==

== ENCOUNTER 2023-12-12 12:54 | Outpatient (AMB) | payer MEDICARE, SELFPAY ==
[2023-12-12 12:59] VITALS: BP 140/84; PULSE 77; RESP 14; BMI 19.4
--- NOTE | 2023-12-12 12:59 | A.OFFVIS_ITS ---
Intake Vital Signs 12/12/23 12:59 Height 5 ft 4 in Weight 113 lb BMI 19.4 BP 140/84 H Blood Pressure Location Lt brachial Position Sitting Respiration 14 Pulse 77 Pulse Source Pulse Oximeter Intake Visit Reasons: Head Pain/confirmed Allergies succinylcholine [SUCCINYLCHOLINE] Allergy (Severe, Verified 12/12/23 14:36) EXCESSIVE PARALYSIS tramadol Allergy (Intermediate, Verified 12/12/23 14:36) diarrhea, upset stomach cat dander [CATS] Allergy (Mild, Verified 12/12/23 14:36) UNKNOWN dog dander [DOGS] Allergy (Mild, Verified 12/12/23 14:36) UNKNOWN pollen extracts [POLLEN] Allergy (Mild, Verified 12/12/23 14:36) UNKNOWN gabapentin Adverse Reaction (Mild, Verified 12/12/23 14:36) Nausea and Vomiting DUST Allergy (Mild, Uncoded 12/12/23 14:36) UNKNOWN Medication List - Last Reconciled 12/12/23 by Gavi Carballo LPN alprazolam 0.5 mg PO TID PRN 30 days buprenorphine-naloxone 2-0.5 mg (Suboxone) 1 film sublingual DAILY clobetasol 0.05% 1 appl topical BID 2 weeks flecainide 100 mg PO Q12H 30 days fluticasone furoate-vilanterol 100-25 mcg/dose (Breo Ellipta) 1 ea inhalation DAILY ketoconazole 2% 1 appl topical 2XW lidocaine 5% 1 appl topical BEDTIME PRN 30 days lisinopril 10 mg PO DAILY 90 days mupirocin 2% 1 appl topical BID 30 days pregabalin 25 mg PO DAILY 30 days propranolol ER 60 mg PO DAILY rivaroxaban (Xarelto) 20 mg PO DAILY sodium phosphates 19-7 gram/118 mL (Fleet Enema) 118 mL DE BEDTIME PRN Spiriva with HandiHaler (tiotropium bromide) 1 cap inhalation DAILY 30 days NS valacyclovir 1,000 mg PO TID 7 days HPI HPI Comments History of Present Illness Details Yamileth is back in my office with her daughter with complains on pain in the area of her scalp, pain in the lower back, and pain in the back of her neck. Both the patient and her daughter had very extensive and prolonged conversation with me trying to find out what I can offer to her to treat her pain. I explained to her that her situation is not that easy, she is for the long period of time on Suboxone to treat her addiction to the opioids. She is not very satisfied with Suboxone effect on her pain. I explained to them that there are 2 ways to possibly treat her pain and her addiction. One way is to stop opioid medications for at least 6 months completely and then start her on micro doses of the naltrexone. Alternatively she can decide to go for methadone clinic and receive appropriate at the doses of the methadone which would treat her addiction and her pain. Based on x-rays of the lumbar spine I offered in the past patient to do MBB L3 L4-5 bilaterally to diagnose her pain. Steroid injections would be a poor option for this patient because of her severe osteoporosis. Her daughter is strongly convinced that her conditions started to get exacerbated after she received COVID vaccine booster. She believes that her condition started to get deteriorated, that patient received pacemaker because of the complications from the vaccine. She also believes that the patient developed autoimmune condition secondary to vaccination. I explained to the patient that rheumatologists are the physicians who are taking care of autoimmune conditions and I offered them to send the patient to creative services designer for the evaluation of possible diagnosis of rheumatoid arthritis. I also explained to them that not very many options exist to treat her arthritis wants it is not autoimmune in nature. Nevertheless I will prescribe her diclofenac gel to apply to painful areas of the back neck and hands. Most likely the compression fractures which are demonstrated on her x-ray there are old fractures and would not be treated with kyphoplasty or vertebroplasty. Unfortunately it has not possible to establish the age of the fractures because the patient has a pacemaker and unable to go to MRI machine. The injections to treat her pain in his called needs [facility], I am not sure that I am ready to perform injections to alleviate this kind of a pain. Prior: She previously was under observation in this office and she was referred to me for genicular nerve block. She unfortunately did not attend that injection. Today she came to me with multiple complaints on multiple pain generators however she denied the pain coming from her knees.. She reported that she was operated on basal cell carcinoma of her scalp skin. She also reported multiple lesions of lichen planus on the scalp which are according to her give her intractable pain. She also complains on pain on the base of her skull in the projection of atlantooccipital joints she reports that this pain radiates to the back of her head and down the bilateral posterior neck. She also complains on pain in the lumbar spine which is severe however not as bad as the pain in the head in the neck. She denies any images of the lumbar spine of cervical spine in the past. She stated that she had an MRI of the lumbar spine at the same time she stated that she has a pacemaker. I am not sure if it is possible to have an MRI with pacemaker. Prior: She was under care of Dr. Price in the past with opioid medication prescriptions for the several years. She broke the contract once and she was suspended indefinitely for her opioid medications. Currently she presented here with Dr. Henson referral for the performance of right knee genicular nerve block. She has right knee deformed with very limited range of motion. I presume it is very advanced osteoarthritis on the right knee. I offered her diagnostic genicular nerve block with good results will perform radiofrequency ablation of the genicular nerves [facility] Medical History Upper respiratory tract infection Skin lesion of face Skin abscess Hospital discharge follow-up Laceration of elbow, right Contusion of elbow, right Right knee skin infection Knee pain Pacemaker Sinus pause Opioid use disorder COPD with acute exacerbation COPD (chronic obstructive pulmonary disease) Left knee pain Paroxysmal atrial fibrillation Knee pain Abdominal pain Smoker Neurodermatitis COPD exacerbation Scalp abscess Vaginal discharge Skin lesion Osteoarthritis of thoracic spine Anxiety Surgical History History of basal cell carcinoma (BCC) excision Mammogram declined History of bilateral cataract extraction History of ectopic History of hip replacement History of nasal surgery Family History Father No problems noted. Mother No problems noted. Social History Housing: Apartment Alcohol intake: current Patient Tobacco Use Status: Current everyday Tobacco user Tobacco use type: Cigarette Cigarettes Per Day: 6 Years Smoked: 50 +/- e-Cigarette/Vaping Use: Never Used Second Hand Smoke Exposure: Yes service: No Current occupational status: retired and disabled Cognitive needs: Yes Hearing needs: No Vision needs: No Review of Systems Const All systems reviewed & are unremarkable except as noted in HPI and below ENT Reports Normal hearing present Neuro Reports Normal hearing present, Denies Abnormal speech present, Denies confusion and Denies Sensory deficit (Neuro) Psych Denies confusion Physical Exam Vital Signs: Last Vital Signs Pulse 77 12/12/23 12:59 Resp 14 12/12/23 12:59 BP 140/84 H 12/12/23 12:59 BMI result Body Mass Index 19.4 Const General: no acute distress; No confusion Orientation/consciousness: patient oriented x3 and No confusion Eyes General: appearance normal, both eyes and all related structures Pupils: Equal, round and reactive pupils present EOM: EOMs intact bilaterally Neck Neck: Yes full ROM Chest Chest palpation & inspection: normal inspection of the chest Resp Effort & Inspection: normal respiratory effort, able to speak in complete sentences, normal respiratory pattern, no audible wheezes and no cough Cardio Jugular venous distension: no JVD GI Inspection: Yes normal to inspection Back/Spine/Pelvis Other: Flexing forward and flexing backwards equally uncomfortable for the patient. Loading test is positive. SLR is negative. Neuro General: patient oriented x3, gait normal and No confusion Cranial nerves: Yes CN's II-XII intact bilaterally, Yes Equal, round and reactive pupils present, Yes Normal hearing present and Yes Ability to bilaterally elevate shoulders present Speech: No Abnormal speech present Gait exam (Neuro): Normal gait present Motor exam (neuro): 5/5 motor strength present throughout Sensory Exam: No Sensory deficit (Neuro) Extrem General: No pedal edema Psych Speech and movement: Normal speech and movement present Affect: normal affect Attitude: cooperative Thought process: Normal thought process present Thought content: Normal thought content present Insight: Good insight present (Psych) Judgement: Good judgement present (Psych) Assessment & Plan Assessment & Plan (1) Rheumatoid arthritis: Code(s): M06.9 - Rheumatoid arthritis, unspecified Plan Plan of care and discussion is as above. I will refer this patient to creative services designer. I also prescribed her diclofenac sodium topical application to apply to her neck into her lower back. She has severe osteoporosis and steroid injections are poor option for this patient as well as oral steroids. The difficulty with opioid administrations described above. Sprint PNS could be tried for her neck and for her lower back as long as this patient understands th at she has multiple issues and they can not be treated all at once. Orders: Referrals Rheumatology Referral M06.9 - Rheumatoid arthritis, unspecified Medications: New diclofenac sodium 3% 1 appl topical BID 30 days 100 grams 8RF Patient Instructions: I here by testify that I spent 35 minutes in conversation with this patient as well as planning her care and organizing this note. Coding Level of Care Code Est Pt Level 4 (34264) Diagnoses Rheumatoid arthritis M06.9
== END 2023-12-12 14:07 | disposition home or self-care (01) ==
PROVIDERS: PCP Internal Medicine; Visit Provider Anesthesiology
DX: M06.9 Rheumatoid arthritis, unspecified (principal)
CPT/HCPCS: 99214

== ENCOUNTER → 2023-12-12 12:54 | Outpatient (BNVA) | payer MEDICARE, SELFPAY | PROVIDERS: PCP Internal Medicine; Visit Provider Anesthesiology | DX: K40.90 Unilateral inguinal hernia, without obstruction or gangrene, not specified as recurrent (principal); M06.9 Rheumatoid arthritis, unspecified | CPT/HCPCS: 99202; 99212 ==

== ENCOUNTER 2023-12-12 14:07 | Outpatient (AMB) | payer MEDICARE, SELFPAY ==
--- NOTE | 2023-12-12 14:34 | A.OFFVIS_ITS ---
Intake Vital Signs 12/12/23 14:35 Height 5 ft 4 in Weight 113 lb 0.002 oz BMI 19.4 BP 140/84 H Blood Pressure Location Lt brachial Position Sitting Intake Visit Reasons: hernia Intake Note: This patient presents for a consultation for a hernia. Patient c/o; reports pain, reports bulge, left groin. 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 Accompanied by: Self / Same As Patient Allergies succinylcholine [SUCCINYLCHOLINE] Allergy (Severe, Verified 12/12/23 14:56) EXCESSIVE PARALYSIS tramadol Allergy (Intermediate, Verified 12/12/23 14:56) diarrhea, upset stomach cat dander [CATS] Allergy (Mild, Verified 12/12/23 14:56) UNKNOWN dog dander [DOGS] Allergy (Mild, Verified 12/12/23 14:56) UNKNOWN pollen extracts [POLLEN] Allergy (Mild, Verified 12/12/23 14:56) UNKNOWN gabapentin Adverse Reaction (Mild, Verified 12/12/23 14:56) Nausea and Vomiting DUST Allergy (Mild, Uncoded 12/12/23 14:56) UNKNOWN Medication List - Last Reconciled 12/12/23 by Kemal Wheeler MD alprazolam 0.5 mg PO TID PRN 30 days buprenorphine-naloxone 2-0.5 mg (Suboxone) 1 film sublingual DAILY clobetasol 0.05% 1 appl topical BID 2 weeks diclofenac sodium 3% 1 appl topical BID 30 days flecainide 100 mg PO Q12H 30 days fluticasone furoate-vilanterol 100-25 mcg/dose (Breo Ellipta) 1 ea inhalation DAILY ketoconazole 2% 1 appl topical 2XW lidocaine 5% 1 appl topical BEDTIME PRN 30 days lisinopril 10 mg PO DAILY 90 days mupirocin 2% 1 appl topical BID 30 days pregabalin 25 mg PO DAILY 30 days propranolol ER 60 mg PO DAILY rivaroxaban (Xarelto) 20 mg PO DAILY sodium phosphates 19-7 gram/118 mL (Fleet Enema) 118 mL [place] BEDTIME PRN Spiriva with HandiHaler (tiotropium bromide) 1 cap inhalation DAILY 30 days NS valacyclovir 1,000 mg PO TID 7 days HPI hernia HPI Details 78-year-old female with multiple medical problems including COPD, and has a pacemaker, referred for a left groin hernia. She says that she has been noticing this reducible mass on the left groin. This causes some discomfort. She does not really state how long she has noticed this. She has known history of heavy smoking and she has COPD. She does not use O2 supplementation at this time. She also describes chronic back pain and asked for oxycodone for this. She says that she has had a hard time to get this prescription from her primary care physician. [facility], LAT[facility] Medical History Upper respiratory tract infection Skin lesion of face Skin abscess Hospital discharge follow-up Laceration of elbow, right Contusion of elbow, right Right knee skin infection Knee pain Pacemaker Sinus pause Opioid use disorder COPD with acute exacerbation COPD (chronic obstructive pulmonary disease) Left knee pain Paroxysmal atrial fibrillation Knee pain Abdominal pain Smoker Neurodermatitis COPD exacerbation Scalp abscess Vaginal discharge Skin lesion Osteoarthritis of thoracic spine Anxiety Surgical History History of basal cell carcinoma (BCC) excision Mammogram declined History of bilateral cataract extraction History of ectopic History of hip replacement History of nasal surgery Family History Father No problems noted. Mother No problems noted. Social History Housing: Apartment Alcohol intake: current Patient Tobacco Use Status: Current everyday Tobacco user Tobacco use type: Cigarette Cigarettes Per Day: 6 Years Smoked: 50 +/- e-Cigarette/Vaping Use: Never Used Second Hand Smoke Exposure: Yes service: No Current occupational status: retired and disabled Cognitive needs: Yes Hearing needs: No Vision needs: No Review of Systems Const Denies chills and Denies fever(s) Card Denies chest pain, Denies dyspnea and Denies dyspnea on exertion Resp Reports cough, Denies dyspnea and Denies dyspnea on exertion GI Denies hematochezia and Denies change in bowel habits Denies hematuria Musc Reports back pain and Denies limited range of motion Neuro Denies focal weakness and Denies convulsions Psych Denies depression and Denies mood swings Physical Exam Vital Signs: Last Vital Signs BP 140/84 H 12/12/23 14:35 BMI result Body Mass Index 19.4 Const General: comfortable and no acute distress Orientation/consciousness: patient oriented x3 Neck Neck: Yes no lymphadenopathy Resp Other: Hollow breath sounds consistent with her COPD Auscultation: clear to auscultation bilaterally Cardio Rhythm: regular rhythm GI Other: Left inguinal hernia, notice with Valsalva, with some discomfort, easily reducible Palpation (GI): Soft to palpation, nontender and no guarding Back/Spine/Pelvis Other: Scoliosis of the back Neuro General: patient oriented x3 Assessment & Plan Assessment & Plan (1) Left inguinal hernia: Code(s): K40.90 - Unilateral inguinal hernia, without obstruction or gangrene, not specified as recurrent Plan: She has a left inguinal hernia as described above. This is reducible. I explained to her the option of proceeding with repair. I discussed the technique of repair with mesh placement. I reviewed the risks including but not limited to bleeding, infections, bowel injury, recurrence, inherent risks of anesthesia, as well as the benefits and alternatives She says that she does not want to proceed with surgery at this time. She says she has had multiple surgeries and is very anxious about having another 1 especially as she is aware about her medical issues She does state that she will come back to me if she feels that she wants to proceed with surgery. In the meantime, she had wanted a refill for pain medications for her back. I did instruct her to make sure that she sees her primary care physician for this. Coding Level of Care Code New Pt Level 3 (30801) Diagnoses Left inguinal hernia K40.90
[2023-12-12 14:35] VITALS: BP 140/84; BMI 19.4
== END 2023-12-12 15:19 | disposition home or self-care (01) ==
PROVIDERS: PCP Internal Medicine; Referring Provider Internal Medicine; Visit Provider Surgery
DX: K40.90 Unilateral inguinal hernia, without obstruction or gangrene, not specified as recurrent (principal)
CPT/HCPCS: 99203

== ENCOUNTER 2023-12-20 14:41 | Outpatient (AMB) | payer MEDICARE, SELFPAY ==
--- NOTE | 2023-12-20 14:42 | A.OFFVISCC_ITS ---
Intake Vital Signs 12/20/23 14:53 BP 130/78 Blood Pressure Location Lt radial Position Sitting Pulse 76 Pulse Source Pulse Oximeter Pulse Oximetry (%) 94 Oxygen Delivery Method Room Air Intake Visit Reasons: MAT Intake Note: The patient presents for a mat visit Allergies succinylcholine [SUCCINYLCHOLINE] Allergy (Severe, Verified 12/20/23 14:56) EXCESSIVE PARALYSIS tramadol Allergy (Intermediate, Verified 12/20/23 14:56) diarrhea, upset stomach cat dander [CATS] Allergy (Mild, Verified 12/20/23 14:56) UNKNOWN dog dander [DOGS] Allergy (Mild, Verified 12/20/23 14:56) UNKNOWN pollen extracts [POLLEN] Allergy (Mild, Verified 12/20/23 14:56) UNKNOWN gabapentin Adverse Reaction (Mild, Verified 12/20/23 14:56) Nausea and Vomiting DUST Allergy (Mild, Uncoded 12/20/23 14:56) UNKNOWN Do you need a note to return to daycare/school/sports/work: No HPI MAT HPI Details Pt presents for MAT visit Recently seen by pain management where recommendation was made for her to explore methadone as an alternative to suboxone for her pain and OUD She is interested in trying this Her son recommended a clinic to her that she is willing to try going to but she is unable to remember which it is She continues to tolerate the 2mg films split dosed daily Denies any concers for allergic reation with this dose [facility] Medical History Upper respiratory tract infection Skin lesion of face Skin abscess Hospital discharge follow-up Laceration of elbow, right Contusion of elbow, right Right knee skin infection Knee pain Pacemaker Sinus pause Opioid use disorder COPD with acute exacerbation COPD (chronic obstructive pulmonary disease) Left knee pain Paroxysmal atrial fibrillation Knee pain Abdominal pain Smoker Neurodermatitis COPD exacerbation Scalp abscess Vaginal discharge Skin lesion Osteoarthritis of thoracic spine Anxiety Surgical History History of basal cell carcinoma (BCC) excision Mammogram declined History of bilateral cataract extraction History of ectopic History of hip replacement History of nasal surgery Family History Father No problems noted. Mother No problems noted. Social History Housing: Apartment Alcohol intake: current Patient Tobacco Use Status: Current everyday Tobacco user Tobacco use type: Cigarette Cigarettes Per Day: 6 Years Smoked: 50 +/- e-Cigarette/Vaping Use: Never Used Second Hand Smoke Exposure: Yes service: No Current occupational status: retired and disabled Cognitive needs: Yes Hearing needs: No Vision needs: No Review of Systems Const Reports as per HPI Physical Exam Vital Signs: Last Vital Signs Pulse 76 12/20/23 14:53 BP 130/78 12/20/23 14:53 Pulse Ox 94 12/20/23 14:53 Oxygen Delivery Method Room Air 12/20/23 14:53 Const General: cooperative and no acute distress Resp Effort & Inspection: normal respiratory effort Psych Appearance: grossly normal and well kempt Mental Status: mental status grossly normal Affect: normal affect Attitude: cooperative Thought process: Normal thought process present Assessment & Plan Assessment & Plan (1) Opioid use disorder: Code(s): F11.90 - Opioid use, unspecified, uncomplicated Plan: -Mass pat reviewed -Refill for suboxone sent -GABRIELA obtained to provide warm handoff should patient decide on a clinic -Follow up 1 month or sooner as needed Medications: Refilled buprenorphine-naloxone 2-0.5 mg (Suboxone) 1 film sublingual DAILY 28 ea 0RF Coding Level of Care Code Est Pt Level 3 (72771) Diagnoses Opioid use disorder F11.90
[2023-12-20 14:53] VITALS: BP 130/78; PULSE 76; O2SAT 94
== END 2023-12-20 15:47 | disposition home or self-care (01) ==
LOC: HO.HCC 14:41
PROVIDERS: PCP Internal Medicine; Visit Provider Nurse Practitioner Family
DX: F11.90 Opioid use, unspecified, uncomplicated (principal)
CPT/HCPCS: 99213

== ENCOUNTER → 2023-12-20 14:41 | Outpatient (BNVA) | payer MEDICARE, SELFPAY | PROVIDERS: PCP Internal Medicine; Visit Provider Nurse Practitioner Family | DX: F11.20 Opioid dependence, uncomplicated (principal) | CPT/HCPCS: 99212 ==

== ENCOUNTER → 2023-12-26 23:59 | Outpatient (BNV) | payer MEDICARE, SELFPAY ==
--- NOTE | 2023-12-26 15:41 | A.OFFVIS_ITS ---
Intake Intake Visit Reasons: Remote Device Check- Medtronic Allergies succinylcholine [SUCCINYLCHOLINE] Allergy (Severe, Verified 12/20/23 14:56) EXCESSIVE PARALYSIS tramadol Allergy (Intermediate, Verified 12/20/23 14:56) diarrhea, upset stomach cat dander [CATS] Allergy (Mild, Verified 12/20/23 14:56) UNKNOWN dog dander [DOGS] Allergy (Mild, Verified 12/20/23 14:56) UNKNOWN pollen extracts [POLLEN] Allergy (Mild, Verified 12/20/23 14:56) UNKNOWN gabapentin Adverse Reaction (Mild, Verified 12/20/23 14:56) Nausea and Vomiting DUST Allergy (Mild, Uncoded 12/20/23 14:56) UNKNOWN [facility] Medical History Upper respiratory tract infection Skin lesion of face Skin abscess Hospital discharge follow-up Laceration of elbow, right Contusion of elbow, right Right knee skin infection Knee pain Pacemaker Sinus pause Opioid use disorder COPD with acute exacerbation COPD (chronic obstructive pulmonary disease) Left knee pain Paroxysmal atrial fibrillation Knee pain Abdominal pain Smoker Neurodermatitis COPD exacerbation Scalp abscess Vaginal discharge Skin lesion Osteoarthritis of thoracic spine Anxiety Surgical History History of basal cell carcinoma (BCC) excision Mammogram declined History of bilateral cataract extraction History of ectopic History of hip replacement History of nasal surgery Family History Father No problems noted. Mother No problems noted. Social History Housing: Apartment Alcohol intake: current Patient Tobacco Use Status: Current everyday Tobacco user Tobacco use type: Cigarette Cigarettes Per Day: 6 Years Smoked: 50 +/- e-Cigarette/Vaping Use: Never Used Second Hand Smoke Exposure: Yes service: No Current occupational status: retired and disabled Cognitive needs: Yes Hearing needs: No Vision needs: No Office Procedures Cardiac Device Check Cardiac Device Check Details: Remote pacemaker report generated 12/26/2023. Pacemaker function is adequate. No episodes of atrial fibrillation noted [id number] Cardiac Device Interrogation, pacemaker Procedure code (CPT) selection complete Assessment & Plan Assessment & Plan (1) Pacemaker: Comment: Medtronic dual-chamber pacemaker placement 12/07/2021 Code(s): Z95.0 - Presence of cardiac pacemaker Plan: See above Coding Level of Care Code Procedure Only Diagnoses Pacemaker Z95.0 CPT Codes Cardiac Device Check - Cardiac Device 12: [id number] Cardiac Device Interrogation, pacemaker ([id number])
== END ==
PROVIDERS: PCP Internal Medicine; Visit Provider Internal Medicine Cardiovascular Disease
DX: I48.0 Paroxysmal atrial fibrillation (principal); Z95.0 Presence of cardiac pacemaker
CPT/HCPCS: 93294

== ENCOUNTER 2023-12-27 06:23 | Outpatient (REF) | payer MEDICARE, SELFPAY | END 2023-12-27 06:24 | disposition home or self-care (01) | LOC: CF 06:23 | PROVIDERS: Visit Provider Anesthesiology | DX: Z13.89 Encounter for screening for other disorder (principal) ==

== ENCOUNTER 2024-01-02 18:54 | Emergency (ER) | payer MEDICARE, SELFPAY ==
--- NOTE | ~2024-01-02 | CT_ITS ---
EXAMINATION: CT ABDOMEN AND PELVIS WITHOUT CONTRAST CLINICAL INFORMATION: Pain. COMPARISON: 09/08/2023. TECHNIQUE: Multidetector volumetric imaging was performed from the superior aspect of the liver through the pubic symphysis. Sagittal and coronal reformatted images were obtained on the technologist's workstation. This CT examination was performed using dose optimization techniques as appropriate, variously including the following: *Automated exposure control *Adjustment of mA and/or kV according to patient size (this includes techniques or standardized protocols for targeted exams where dose is matched to indication/reason for exam; i.e. extremities or head) *Use of iterative reconstruction technique DLP: 390 mGy-cm FINDINGS: LUNG BASES: There is scarring at the left lung base. There is a small posterior left diaphragmatic hernia containing fat. LIVER, GALLBLADDER, AND BILIARY TREE: The liver is normal in size, shape, and attenuation. No focal hepatic lesion or biliary ductal dilatation is present. The gallbladder is unremarkable with no evidence of radiopaque gallstones, gallbladder wall thickening, or obvious pericholecystic inflammatory changes. PANCREAS: Unremarkable. SPLEEN: Unremarkable. ADRENAL GLANDS: There is mild bilateral adrenal gland thickening. KIDNEYS AND URETERS: The kidneys are normal in size, shape, and attenuation. Right renal vascular calcifications are noted. There is no hydronephrosis BLADDER: There is artifact from bilateral hip prostheses limits evaluation of the pelvis. The visualized portions of the urinary bladder are unremarkable. The visualized portions of the urinary bladder are unremarkable. GASTROINTESTINAL TRACT: There are diverticula of the sigmoid colon without diverticulitis. The appendix is visualized and is within normal limits. ABDOMINAL WALL: There is a small left inguinal hernia containing fat. LYMPH NODES: Normal. VASCULAR: There is atherosclerotic plaque throughout the abdominal aorta and proximal branches. PELVIC VISCERA: Unremarkable. OSSEOUS STRUCTURES: There is diffuse moderate thoracolumbar disc degenerative change with curvature of the thoracolumbar spine to the left. There is mild loss of height of multiple lumbar vertebral bodies. CT/CT abdomen pelvis wo IV con IMPRESSION: 1. No acute intra-abdominal or intrapelvic abnormal finding. 2. Diverticulosis without diverticulitis. 3. Small left inguinal hernia containing fat. 4. Diffuse thoracolumbar disc degenerative change with mild loss of height of multiple lumbar vertebral bodies. 5. Small posterior left diaphragmatic hernia containing fat. Fleischner guidelines were followed.
[2024-01-02 19:08] VITALS: BP 208/96; PULSE 81; RESP 16; TEMP 36; O2SAT 90; BMI 20.8
--- NOTE | 2024-01-02 19:09 | ED_ITS ---
HPI - General Adult General Chief complaint: General Medical Stated complaint: pelvic pain - hernia Time Seen by Provider: 01/02/24 23:30 Source: patient and family Mode of arrival: ambulatory Limitations: no limitations History of Present Illness HPI narrative: Patient comes to the emergency room complaining of left inguinal pain. Patient states that she has been previously diagnosed with left inguinal hernia states that in the last few days she has been having more pain. Patient denies nausea vomiting or diarrhea, no abdominal pain. Today, patient also complaining of anxiety. In triage she was noted that patient's blood pressure is elevated, patient states that she forgot to take her blood pressure medications today and she was very anxious because she ran out of alprazolam. Related Data Previous Rx's Medication Instructions Recorded ketoconazole 2 % shampoo 1 appl topical 2XW #120 mL 12/24/21 clobetasol 0.05 % topical gel 1 appl topical BID 2 weeks #30 12/10/22 grams lisinopril 10 mg tablet 10 mg PO DAILY 90 days #90 tabs 05/14/23 valacyclovir 1 gram tablet 1,000 mg PO TID 7 days #21 tabs 05/14/23 pregabalin 25 mg capsule 25 mg PO DAILY 30 days #30 caps 05/19/23 rivaroxaban 20 mg tablet (Xarelto) 20 mg PO DAILY #90 tabs 08/03/23 lidocaine 5 % topical ointment 1 appl topical BEDTIME PRN pain 30 08/18/23 days #30 grams sodium phosphates 19 gram-7 118 ml AR BEDTIME PRN constipation 09/08/23 gram/118 mL enema (Fleet Enema) #133 mL flecainide 100 mg tablet 100 mg PO Q12H 30 days #60 tabs 09/19/23 mupirocin 2 % topical ointment 1 appl topical BID 30 days #22 11/24/23 grams Spiriva with HandiHaler 18 mcg and 1 cap inhalation DAILY 30 days #30 11/26/23 inhalation capsules (tiotropium inhalations bromide) fluticasone furoate 100 1 ea inhalation DAILY #180 ea 11/26/23 mcg-vilanterol 25 mcg/dose inhalation powder (Breo Ellipta) diclofenac sodium 3 % topical gel 1 appl topical BID 30 days #100 12/12/23 grams oxycodone 5 mg tablet 5 mg PO TID PRN pain #7 tabs 12/12/23 buprenorphine 2 mg-naloxone 0.5 mg 1 film sublingual DAILY #28 ea 12/20/23 sublingual film (Suboxone) propranolol 60 mg capsule,24 60 mg PO DAILY #90 caps 12/26/23 hr,extended release alprazolam 0.5 mg tablet 0.5 mg PO BID PRN anxiety 7 days 12/27/23 #14 tabs oxycodone 5 mg tablet 5 mg PO BID PRN pain #7 tabs 01/03/24 Allergies Allergy/AdvReac Type Severity Reaction Status Date / Time succinylcholine Allergy Severe EXCESSIVE Verified 01/02/24 19:08 [SUCCINYLCHOLINE] PARALYSIS tramadol Allergy Intermediate diarrhea, Verified 01/02/24 19:08 upset stomach cat dander [CATS] Allergy Mild UNKNOWN Verified 01/02/24 19:08 dog dander [DOGS] Allergy Mild UNKNOWN Verified 01/02/24 19:08 pollen extracts [POLLEN] Allergy Mild UNKNOWN Verified 01/02/24 19:08 gabapentin AdvReac Mild Nausea and Verified 01/02/24 19:08 Vomiting DUST Allergy Mild UNKNOWN Uncoded 12/20/23 14:56 Review of Systems 2 Review of Systems: Constitutional : No Weight loss, No Fever, No Chills, No Night Sweats, No Fatigue, No Malaise ENT/Mouth : No Hearing loss, No Ear Pain, No Nasal Congestion, No Sinus Pain, No Hoarseness, No sore throat, No Rhinorrhea, No Swallowing Difficulty Eyes: No Eye Pain, No Swelling, No Redness, No Foreign Body, No Discharge, No Vision Changes Cardiovascular : No Chest Pain, No SOB, No Dyspnea on Exertion, No Orthopnea, No Edema, No Palpitations Respiratory : No Cough, No Sputum, No Wheezing, No Smoke Exposure, No Dyspnea Gastrointestinal : No Nausea, No Vomiting, No Diarrhea, No Constipation, complaining of left inguinal pain especially with walking. Genitourinary : no irregular bleeding, No Dysuria, No Urinary Frequency, No Hematuria, No Urinary Incontinence, No Urgency, No Flank Pain, No Urinary Flow Changes, No Hesitancy Musculoskeletal : No joint pain, No Myalgias, No Joint Swelling Skin : No Skin Lesions, No rash Neuro : No Weakness, No Numbness, No Paresthesias, No Loss of Consciousness, No Dizziness, No Headache Psych : Complaining of anxiety, No Depression, No SI/HI/AH/VH, No Social Issues, Heme/Lymph: No Bruising, No Bleeding,No Lymphadenopathy Endocrine : No Polyuria, No Polydipsia, No Temperature Intolerance [facility] Past Medical History Medical History Upper respiratory tract infection Skin lesion of face Skin abscess Hospital discharge follow-up Laceration of elbow, right Contusion of elbow, right Right knee skin infection Knee pain Pacemaker Sinus pause Opioid use disorder COPD with acute exacerbation COPD (chronic obstructive pulmonary disease) Left knee pain Paroxysmal atrial fibrillation Knee pain Abdominal pain Smoker Neurodermatitis COPD exacerbation Scalp abscess Vaginal discharge Skin lesion Osteoarthritis of thoracic spine Anxiety Surgical History History of basal cell carcinoma (BCC) excision Mammogram declined History of bilateral cataract extraction History of ectopic History of hip replacement History of nasal surgery Family History Family History Father No problems noted. Mother No problems noted. Social History Social History Housing: Apartment Alcohol intake: current Alcohol intake frequency: 0-2 drinks per day Alcohol type: hard liquor Patient Tobacco Use Status: Current everyday Tobacco user Tobacco use type: Cigarette Cigarettes Per Day: 6 Years Smoked: 50 +/- Smoked in Last 30 Days: Yes e-Cigarette/Vaping Use: Never Used Second Hand Smoke Exposure: Yes Use of substances other than those prescribed or required for medical reasons: No Advance Directives: No Advance Directives Information Provided: Yes service: No Current occupational status: retired and disabled Cognitive needs: Yes Hearing needs: No Vision needs: No Physical Exam ED Vital Signs: Vital Signs - 24 hr 01/02/24 19:08 01/02/24 21:51 01/02/24 23:37 Temperature 96.8 F 98.9 F Pulse Rate 81 80 78 Respiratory Rate 16 20 28 H Blood Pressure 208/96 H 192/124 H 217/130 H Pulse Oximetry 90 L 88 L 92 Oxygen Delivery Method Room Air Room Air Nasal Cannula 01/03/24 01:41 Temperature Pulse Rate 68 Respiratory Rate 20 Blood Pressure 156/98 H Pulse Oximetry 95 Oxygen Delivery Method Room Air BMI result Body Mass Index 20.8 Const Other: Appearance: Alert. Oriented X3. No acute distress. Eyes: Pupils equal, round and reactive to light. ENT: Pharynx normal. Neck: Normal inspection. Neck supple. No lymph nodes noted. No crepitus CVS: Normal heart rate and rhythm. Pulses normal. Normal S1 and S2 Respiratory: No respiratory distress. Breath sounds normal. No Wheezing. No rales Abdomen: Soft and nontender. No rigidity. No distention. There is a left inguinal hernia but it is reducible, soft Back: Multiple abrasions in the skin, possible stage I pressure ulcers? No signs of cellulitis, palpable spasms over the left side of the back Skin: Skin warm and dry. Normal skin color. Normal skin turgor. Extremities: No lower extremity edema. No Lacerations. No Rash Neuro: Oriented X 3. No motor deficit. No sensory deficit. Moving all extremities. No slurred speech. CN 2 through 12 grossly intact Psych: calm, cooperative, normal affect Course Course Course Narrative: RME performed by Gavi Puente PA-C. Patient is a 78 year old assigned female at presenting to the emergency department with a left inguinal hernia. Patient states that her left pelvis continues to hurt and she knows she needs surgery on it but is anxious to get another surgery done. 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 Labs ordered. Patient placed back in the waiting room pending room availability and results. Medications Administered Discontinued Medications Generic Name Dose Route Start Last Admin Trade Name Freq PRN Reason Stop Dose Admin Alprazolam 0.5 mg 01/02/24 23:48 01/03/24 00:21 Alprazolam 0.5 Mg Tablet PO 01/02/24 23:49 0.5 mg ONCE ONE Administration Labetalol HCl 100 mg 01/02/24 23:48 01/03/24 00:23 Labetalol Hcl 100 Mg Tablet PO 01/02/24 23:49 100 mg ONCE ONE Administration Protocol Oxycodone HCl 5 mg 01/03/24 00:15 01/03/24 00:21 Oxycodone Hcl Immed Release 5 Mg Tablet PO 01/03/24 00:16 5 mg ONCE ONE Administration Potassium Chloride 80 meq 01/02/24 23:50 01/03/24 00:23 Potassium Chloride Packet 20 Meq Packet PO 01/02/24 23:51 80 meq ONCE ONE Administration Tramadol HCl 50 mg 01/02/24 23:48 01/03/24 00:24 Tramadol Hcl 50 Mg Tablet PO 01/02/24 23:49 Not Given ONCE ONE Medical Decision Making Medical Decision Making [facility] Narrative: -my interpretation of labs: Normal hematology, chemistry shows a potassium of 2.8, repleted orally, urinalysis negative for UTI -CT scan of the abdomen and pelvis pending -patient was given 100 mg p.o. labetalol for a blood pressure of 217/130 with a heart rate in the 90s, alprazolam which she usually takes at home but ran out a few days ago, tramadol for pain. Patient's blood pressure improved to 145/90 -patient no longer anxious. -my interpretation of CT scan of the abdomen pelvis: No signs of incarcerated hernia. Patient instructed to follow-up with Dr. Wheeler , as patient still at high risk of inguinal incarceration. -patient will resume taking her blood pressure medications at home. Differential Diagnosis Differential Diagnoses: The differential diagnosis associated with the presentation includes (Musculoskeletal pain, incarcerated left inguinal hernia, ligamentous injury. Hypertension, hypertensive urgency. Hypokalemia.) Admission/Observation Consideration of admission/observation: Escalation of care including admission/observation considered (Given patient's presentation, vitals and labs, patient was considered) Lab Data [facility] Lab Attestation statement: I reviewed the patient's lab results. 01/02/24 20:51 01/02/24 20:51 Labs: Lab Results 01/02/24 01/02/24 Range/Units 20:51 20:58 WBC 9.1 (4.8-10.8) X10*3/uL RBC 4.43 (4.20-5.50) X10*6/uL Hgb 14.8 (12.0-16.0) g/dl Hct 43.6 (37.0-47.0) % MCV 98.4 H (80.0-98.0) fL MCH 33.4 H (27.0-33.0) pg MCHC 33.9 (31.0-35.0) g/dl RDW 13.8 (11.0-16.0) % Plt Count 181 (160-400) X10*3/uL MPV 11.0 (9.4-12.3) fL Immature Gran % (Auto) 0.4 (0.0-0.4) % Neut % (Auto) 65.4 (45-73) % Lymph % (Auto) 21.6 (20-40) % [place] % (Auto) 11.0 (2-11) % Eos % (Auto) 1.0 (0-4) % Baso % (Auto) 0.6 (0-2) % Lymph # (Auto) 2.0 (1.2-4.9) X10*3/uL [place] # (Auto) 1.0 (0.1-1.2) X10*3/uL Eos # (Auto) 0.1 (0.0-0.4) X10*3/uL Baso # (Auto) 0.1 (0.0-0.2) X10*3/uL Abs Immat Gran (auto) 0.04 H (0.00-0.03) X10*3/uL Absolute Neuts (auto) 5.9 (2.0-8.3) x10*3/uL Absolute Nucleated RBC 0.000 (0.0-0.012) X10*3/uL Nucleated RBC % (auto) 0.0 (0.0-0.2) /100WBC Sodium 142 (135-145) mmol/L Potassium 2.8 L* (3.3-5.1) mmol/L Chloride 99 (96-108) mmol/L Carbon Dioxide 31 H (22-29) mmol/L Anion Gap 15 (12-20) BUN 10 (9-16) mg/dL Creatinine 0.71 (0.5-1.4) mg/dL Estim Creat Clear Calc 52.4 Estimated GFR > 60 Random Glucose 104 (60-115) mg/dL Calcium 9.6 (8.4-10.2) mg/dL Magnesium 1.6 (1.6-2.6) mg/dL Total Bilirubin 1.0 (0.0-1.0) mg/dL AST 52 H (5-31) U/L ALT 22 (0-31) U/L Alkaline Phosphatase 129 H (39-117) U/L Total Protein 7.4 (6.5-8.0) g/dL Albumin 4.1 (3.5-5.0) g/dL Urine Color Yellow Urine Appearance Clear Urine pH 7.0 (5.0-9.0) Ur Specific [place] 1.010 (1.005-1.025) Urine Protein Trace (Neg-Trace) mg/dL Urine Glucose (UA) Negative (Negative) mg/dL Urine Ketones Negative (Negative) mg/dL Urine Blood Negative (Negative) Urine Nitrite Negative (Negative) Ur Leukocyte Esterase Negative (Negative) Critical Care Time Critical Care Time Critical Care Time: Yes Total Critical Care Time: 45 Attestation: I have personally provided critical care time. Time includes review of lab data, radiology results, discussion with consultants, and monitoring for potential decompensation. Intervention performed as documented. Discharge Plan Discharge Clinical Impression: Anxiety, Hypertension, Inguinal hernia, Muscle spasm of back Patient Disposition: Home, Self-Care Instructions: Inguinal Hernia (ED), Chronic Hypertension (DC), Muscle Spasm (ED) Additional Instructions: Please follow-up with your primary care physician tomorrow. If you have any worsening or new symptoms, please return to the emergency room or call 911 Prescriptions: New oxycodone 5 mg tablet 5 mg PO BID PRN (Reason: pain) Qty: 7 0RF Rx Instructions: Partial Fill upon patient request. No Action clobetasol 0.05 % gel 1 appl topical BID 14 Days Qty: 30 0RF lisinopril 10 mg tablet 10 mg PO DAILY 90 Days Qty: 90 1RF valacyclovir 1 gram tablet 1,000 mg PO TID 7 Days Qty: 21 0RF pregabalin 25 mg capsule 25 mg PO DAILY 30 Days Qty: 30 0RF Xarelto 20 mg tablet 20 mg PO DAILY Qty: 90 2RF flecainide 100 mg tablet 100 mg PO Q12H 30 Days Qty: 60 5RF mupirocin 2 % ointment 1 appl topical BID 30 Days Qty: 22 0RF fluticasone furoate-vilanterol [Breo Ellipta] 100-25 mcg/dose blister with device 1 ea inhalation DAILY Qty: 180 3RF tiotropium bromide [Spiriva with HandiHaler] 18 mcg capsule, w/inhalation device 1 cap inhalation DAILY 30 Days Qty: 30 6RF propranolol 60 mg capsule,extended release 24 hr 60 mg PO DAILY Qty: 90 3RF alprazolam 0.5 mg tablet 0.5 mg PO BID PRN (Reason: anxiety) 7 Days Qty: 14 0RF Fleet Enema 19-7 gram/118 mL enema 118 ml AR BEDTIME PRN (Reason: constipation) Qty: 133 0RF ketoconazole 2 % shampoo 1 appl topical 2XW Qty: 120 0RF lidocaine 5 % ointment 1 appl topical BEDTIME PRN (Reason: pain) 30 Days Qty: 30 1RF oxycodone 5 mg tablet 5 mg PO TID PRN (Reason: pain) Qty: 7 0RF Rx Instructions: Partial Fill upon patient request. diclofenac sodium 3 % gel 1 appl topical BID 30 Days Qty: 100 8RF buprenorphine-naloxone [Suboxone] 2-0.5 mg film 1 film sublingual DAILY Qty: 28 0RF Referrals: Kemal Wheeler MD [Physician] - 01/09/24
[2024-01-02 20:56] LABS: Basophils Absolute Auto 0.1 X10*3/uL (0.0-0.2); Basophils Percent Auto 0.6 % (0-2); Eosinophils Absolute Auto 0.1 X10*3/uL (0.0-0.4); Hematocrit 43.6 % (37.0-47.0); Hemoglobin 14.8 g/dl (12.0-16.0); Imm Gran Abs Auto 0.04 X10*3/uL (0.00-0.03); Imm Gran Pct Auto 0.4 % (0.0-0.4); Lymphocytes Percent Auto 21.6 % (20-40); MANUAL DIFF FLAG NO; Mean Corpuscular HGB Conc 33.9 g/dl (31.0-35.0); Mean Corpuscular Hemoglobin 33.4 pg (27.0-33.0); Mean Corpuscular Volume 98.4 fL (80.0-98.0); Neutrophils Absolute Auto 5.9 x10*3/uL (2.0-8.3); Neutrophils Percent Auto 65.4 % (45-73); Platelet Count 181 X10*3/uL (160-400); Red Blood Count 4.43 X10*6/uL (4.20-5.50); Red Cell Distribution Width 13.8 % (11.0-16.0); White Blood Count 9.1 X10*3/uL (4.8-10.8)
[2024-01-02 21:16] LABS: Appearance Urine Clear; Color Urine Yellow; Glucose Urine UA Negative (Negative); Leukocyte Esterase Urine Negative (Negative); Nitrite Urine Negative (Negative); Urine Blood Negative (Negative); Urine Ketones Negative (Negative); Urine Protein Trace mg/dL (Neg-Trace)
[2024-01-02 21:30] LABS: Alanine Aminotransferase 22 U/L (0-31); Albumin Level 4.1 g/dL (3.5-5.0); Alkaline Phosphatase 129 U/L (39-117); Anion Gap 15 (12-20); Aspartate Amino Transferase 52 U/L (5-31); Blood Urea Nitrogen 10 mg/dL (9-16); Calcium 9.6 mg/dL (8.4-10.2); Carbon Dioxide 31 mmol/L (22-29); Chloride 99 mmol/L (96-108); Creatinine Clr Calc Pharmacy 52.4; Estimated Glomerular Filt Rate > 60; Glucose Random 104 mg/dL (60-115); Magnesium 1.6 mg/dL (1.6-2.6); Potassium 2.8 mmol/L (3.3-5.1); Sodium 142 mmol/L (135-145); Total Protein 7.4 g/dL (6.5-8.0)
[2024-01-02 21:51] VITALS: BP 192/124; PULSE 80; RESP 20; O2SAT 88
[2024-01-02 23:37] VITALS: BP 217/130; PULSE 78; RESP 28; TEMP 37.2; O2SAT 92
--- NOTE | 2024-01-02 23:38 | MHC.EDTECH ---
This tech brought patient from the waiting room,changed patient into hospital attire,placed on the nurse monitoring,vitals taken BP is 217/130 RN and MD were made aware. call ambrosio in reach
[2024-01-03] MEDS: ALPRAZolam 0.5 MG TABLET PO (00:21)
[2024-01-03] MEDS: oxyCODONE HCl Immed Release 5 MG TABLET PO (00:21)
[2024-01-03] MEDS: Potassium Chloride Packet 20 MEQ PACKET 80 MEQ PO (00:23)
[2024-01-03] MEDS: Labetalol HCL 100 MG TABLET PO (00:23)
[2024-01-03 01:41] VITALS: BP 156/98; PULSE 68; RESP 20; O2SAT 95
[2024-01-03 03:28] VITALS: BP 155/84; PULSE 66; RESP 18; TEMP 37.1; O2SAT 96
== END 2024-01-03 03:30 | disposition home or self-care (01) ==
PROVIDERS: Physician Assistant Medical; Emergency Provider Emergency Medicine
DX: K40.90 Unilateral inguinal hernia, without obstruction or gangrene, not specified as recurrent (principal); F41.9 Anxiety disorder, unspecified; I10 Essential (primary) hypertension; M62.830 Muscle spasm of back; J44.9 Chronic obstructive pulmonary disease, unspecified
CPT/HCPCS: 36415; 74176; 80053; 81003; 83735; 85025; 99284

== ENCOUNTER → 2024-01-03 13:59 | Outpatient (BNVA) | payer MEDICARE, SELFPAY | PROVIDERS: PCP Internal Medicine; Visit Provider Nurse Practitioner Family ==

== ENCOUNTER 2024-01-05 12:27 | Outpatient (AMB) | payer MEDICARE, SELFPAY ==
--- NOTE | 2024-01-05 12:27 | A.OFFPC_ITS ---
Intake Visit Reasons: f/u med visit Intake Note: follow up medication Distribution Systems Serviceperson Required: No Accompanied by: Self / Same As Patient Allergies succinylcholine [SUCCINYLCHOLINE] Allergy (Severe, Verified 01/05/24 13:00) EXCESSIVE PARALYSIS tramadol Allergy (Intermediate, Verified 01/05/24 13:00) diarrhea, upset stomach cat dander [CATS] Allergy (Mild, Verified 01/05/24 13:00) UNKNOWN dog dander [DOGS] Allergy (Mild, Verified 01/05/24 13:00) UNKNOWN pollen extracts [POLLEN] Allergy (Mild, Verified 01/05/24 13:00) UNKNOWN gabapentin Adverse Reaction (Mild, Verified 01/05/24 13:00) Nausea and Vomiting DUST Allergy (Mild, Uncoded 01/05/24 13:00) UNKNOWN Medication List - Last Reconciled 01/05/24 by Fany Meza MD alprazolam 0.5 mg PO BID PRN 7 days buprenorphine-naloxone 2-0.5 mg (Suboxone) 1 film sublingual DAILY clobetasol 0.05% 1 appl topical BID 2 weeks diclofenac sodium 3% 1 appl topical BID 30 days flecainide 100 mg PO Q12H 30 days fluticasone furoate-vilanterol 100-25 mcg/dose (Breo Ellipta) 1 ea inhalation DAILY ketoconazole 2% 1 appl topical 2XW lidocaine 5% 1 appl topical BEDTIME PRN 30 days lisinopril 10 mg PO DAILY 90 days mupirocin 2% 1 appl topical BID 30 days propranolol ER 60 mg PO DAILY rivaroxaban (Xarelto) 20 mg PO DAILY sodium phosphates 19-7 gram/118 mL (Fleet Enema) 118 mL MN BEDTIME PRN Spiriva with HandiHaler (tiotropium bromide) 1 cap inhalation DAILY 30 days NS Tobacco use date assessed: 01/05/24 Fall risk assessment: 2 + Falls in past year Last assessed Fall Risk: 01/05/24 Dental Screening Dental Screen Date: 01/05/24 Did you have a dental visit in the last 12 months?: No Did you have a dental problem in the last 6 months where you did not have access to dental care?: No Was dental information given to patient?: Patient has dentist HPI HPI Comments History of Present Illness Details This is a 78 year old female with anxiety, paroxysmal atrial fibrillation, COPD, essential hypertension, mild recurrent major depression and opioid use disorder that has telehealth visity by video for follow up on her conditions. On alprazolam that use to be three times a day with 30 day supply of 90 and she ask for an early refill because of using more than prescribed and now I am given her twice a day for 7 day supply because I am weaning her off. [facility] receive a message about her anxiety today to arrange a counselor and psychiatrist. I do not feel comfortable giving her more than a 7 day supply and she is aware. She is also aware that if she ask for an early refill I will discontinue the benzodiazepines. Atrial fibrillation is follow by Cardiology and she is on flecainide and Xarelto. Denies any active bleeding. COPD is follow by pulmonology and has been stable with Breo. She was encourage to take her BP at home. Declines treatment for depression. Regarding her opioid use disorder she follows with addiction medicine and is on suboxone which she said at first that she does not use it but then admit she is using it. She ask me for opiates again as multiple repetitive times when I have said no. She use to follow with pain management a while ago and she break the pain management because she went to ER and was prescribe some opiates while in a pain management contract. She went to ER few days ago and was prescribe opiates. She call multiple times the global compensation analyst doctor in the past saying that she is in pain and asking for opiates. She also no show multiple times. [facility] Medical History (Updated 01/06/24 @ 09:06 by Fany Meza MD) Rheumatoid arthritis Upper respiratory tract infection Skin lesion of face Skin abscess Hospital discharge follow-up Laceration of elbow, right Contusion of elbow, right Right knee skin infection Knee pain Pacemaker Sinus pause Opioid use disorder COPD with acute exacerbation COPD (chronic obstructive pulmonary disease) Left knee pain Paroxysmal atrial fibrillation Knee pain Abdominal pain Smoker Neurodermatitis COPD exacerbation Scalp abscess Vaginal discharge Skin lesion Osteoarthritis of thoracic spine Anxiety Surgical History History of basal cell carcinoma (BCC) excision Mammogram declined History of bilateral cataract extraction History of ectopic History of hip replacement History of nasal surgery Family History Father No problems noted. Mother No problems noted. Social History Housing: Apartment Alcohol intake: current Alcohol intake frequency: 0-2 drinks per day Alcohol type: hard liquor Patient Tobacco Use Status: Current everyday Tobacco user Tobacco use type: Cigarette Cigarettes Per Day: 7 Years Smoked: 50 +/- e-Cigarette/Vaping Use: Never Used Second Hand Smoke Exposure: Yes service: No Current occupational status: retired and disabled Cognitive needs: Yes Hearing needs: No Vision needs: No Questionnaire PHQ-9 Over the last 2 weeks, how often have you been bothered by any of the following problems? 1. Little interest or pleasure in doing things: several days 2. Feeling down, depressed, or hopeless: several days 3. Trouble falling or staying asleep, or sleeping too much: nearly every day 4. Feeling tired or having little energy: nearly every day 5. Poor appetite or overeating: not at all 6. Feeling bad about yourself - or that you are a failure or have let yourself or your family down: several days 7. Trouble concentrating on things, such as reading the newspaper or watching television: not at all 8. Moving or speaking so slowly that other people could have noticed. Or the opposite - being so fidgety or restless that you have been moving around a lot more than usual: not at all 9. Thoughts that you would be better off or of hurting yourself in some way: not at all Total score: 9 Depression Screening Interpretation: Positive Depression Screening Follow-up: Existing condition and Declines treatment Depression Screening Done: Yes 82497 - PHQ-9 Billing: Yes Source: Developed by Drs. Dane Lindsey, Lynn Peña, Jose Vivas and colleagues, with an educational afsaneh from [employer]. Thrive Questionnaire Date Thrive assessed: 01/05/24 I am a: Patient What is your living situation today?: I have a steady place to live Within the past 12 months, did the food you bought not last and you didn't have the money to get more?: Never true Within the past 12 months, did you worry whether your food would run out before you got money to buy more?: Never true Do you have trouble paying for medicines?: No Do you have trouble getting transportation to medical appointments?: No Do you have trouble paying your heating and electricity bill?: No Do you have trouble taking care of your child, family member or friend?: No Do you have trouble with day-to-day activities such as bathing, preparing meals, shopping, managing finances, etc.?: No Are you currently unemployed and looking for a job?: No Are you interested in more education?: No Please select the resources that you would like help with: None Currently or been in a relationship where the following occur: no concerns reported THRIVE Score: 0 AUDIT C Alcohol Use Questionnaire (AUDIT-C) 1. How often do you have a drink containing alcohol?: Never Total Score: 0 GORGE-7 AMB Questionnaire GORGE-7 Date GORGE - 7 assessed: 01/05/24 Feeling nervous, anxious, or on edge: 3 = Nearly every day Not being able to stop or control worryin = Not at all Worrying too much about different things: 2 = More than half the days Trouble relaxin = Several days Being so restless that it is hard to sit still: 0 = Not at all Becoming easily annoyed or irritable: 1 = Several days Feeling afraid as if something awful might happen: 1 = Several days Total GORGE-7 score (0-4 normal; 5-9 mild; 10-14 moderate; 15-21 severe): 8 Source: Developed by Drs. Dane Lindsey, Lynn Peña, Jose Vivas and colleagues, with an educational afsaneh from [employer]. GORGE-7 Assessment Billing GORGE-7 Assessment Tool: GORGE-7 Assessment 79641 Review of Systems Const All systems reviewed & are unremarkable except as noted in HPI and below Eyes Reports no additional complaints, Denies change in vision and Denies other vis ual disturbances Card Denies chest pain at rest, Denies chest pain with activity, Denies edema, Denies irregular heart rhythm, Denies claudication, Denies dyspnea, Denies dyspnea on exertion, Denies orthopnea, Denies paroxysmal nocturnal dyspnea and Denies slow heart rate Resp Denies cough, Denies dyspnea and Denies dyspnea on exertion Psych Reports abnormal sleep pattern and Reports anxiety Physical exam (Primary Care) Tobacco/Smoking Status: Tobacco use Status Tobacco use date assessed 01/05/24 01/05/24 12:42 Patient Tobacco Use Status Current everyday Tobacco 01/05/24 12:42 Tobacco use type Cigarette 01/05/24 12:42 e-Cigarette/Vaping Use Never Used 01/05/24 12:42 PHQ-9: PHQ-9 Score PHQ-9: Total score 9 01/05/24 13:16 Depression Screening Interpretation: Positive Depression Screening Follow-up: Existing condition and Declines treatment Thrive Assessment: Date of Thrive Assessment Date Thrive assessed 01/05/24 01/05/24 12:42 Currently or been in a relationship where the following occur: no concerns reported Eyes General: appearance normal, both eyes and all related structures Eyelids: Yes eyelids normal Conjunctivae: conjunctivae normal Psych Affect: Anxious affect present Telehealth Telehealth Location of provider rendering services: practice address Location of patient: address on file Patient Identification confirmed using: Name, : Yes Telehealth method: video Patient verbally consented to treatment: Yes Patient verbally consented to billing insurance company: Yes Patient informed of any privacy concerns related to visit: Yes Minutes spent on Phone/Video with Pt.: 20 Assessment and Plan Assessment & Plan (1) Anxiety: Code(s): F41.9 - Anxiety disorder, unspecified Plan: Continue benzodiazepines twice a day for 7 day supply. I am weaning her off. She is aware she can not ask for early refills. (2) Mild recurrent major depression: Code(s): F33.0 - Major depressive disorder, recurrent, mild Plan: Declines treatment. Needs counseling. (3) COPD (chronic obstructive pulmonary disease): Comment: MODERATELY SEVERE CHRONIC OBSTRUCTIVE PULMONARY DISEASE IS DEFINITELY RELATED TO HER LONG-TIME SMOKING. * STRESSED AGAIN THAT SHE MUST QUIT SMOKING COMPLETELY . TX CURRENT REGIMEN IS ADEQUATE, CONTINUE BREO- 100 1 INHALATION DAILY . SPIRIVA HANDIHALER 1 INHALATION DAILY. USE ALBUTEROL HFA 2 PUFFS Q 4-6 HOURS ONLY P.R.N. Code(s): J44.9 - Chronic obstructive pulmonary disease, unspecified Plan: Continue Breo. Follow up with pulmonology. (4) Paroxysmal atrial fibrillation: Comment: Status post ablation. Being maintained on antiarrhythmic with flecainide and has done very well with rhythm control approach Code(s): I48.0 - Paroxysmal atrial fibrillation Plan: Continue flecainide and Xarelto. Follow up with cardiology. (5) Opioid use disorder: Code(s): F11.90 - Opioid use, unspecified, uncomplicated Plan: Continue with addiction medicine. She is aware I will not prescribe opiates for her. (6) Essential hypertension: Code(s): I10 - Essential (primary) hypertension Plan: Continue lisinopril. BP goal is equal or less than 130/80. Coding Level of Care Code Tele Est Pt Level 4 (80320) Diagnoses Anxiety F41.9 Mild recurrent major depression F33.0 COPD (chronic obstructive pulmonary disease) J44.9 Paroxysmal atrial fibrillation I48.0 Opioid use disorder F11.90 Essential hypertension I10 Additional Codes GORGE-7 Assessment Billing - GORGE-7 Assessment Tool: GORGE-7 Assessment 72051 ([id number]) Time Spent (min) 20
== END 2024-01-05 15:13 | disposition home or self-care (01) ==
PROVIDERS: PCP Internal Medicine; Visit Provider Internal Medicine
DX: J44.9 Chronic obstructive pulmonary disease, unspecified (principal); F33.0 Major depressive disorder, recurrent, mild; I48.0 Paroxysmal atrial fibrillation; F41.9 Anxiety disorder, unspecified; F11.90 Opioid use, unspecified, uncomplicated; I10 Essential (primary) hypertension
CPT/HCPCS: 99214

== ENCOUNTER 2024-01-17 13:58 | Outpatient (AMB) | payer MEDICARE, SELFPAY ==
--- NOTE | 2024-01-18 13:33 | A.OFFVISCC_ITS ---
Intake Intake Visit Reasons: MAT Allergies succinylcholine [SUCCINYLCHOLINE] Allergy (Severe, Verified 01/05/24 13:00) EXCESSIVE PARALYSIS tramadol Allergy (Intermediate, Verified 01/05/24 13:00) diarrhea, upset stomach cat dander [CATS] Allergy (Mild, Verified 01/05/24 13:00) UNKNOWN dog dander [DOGS] Allergy (Mild, Verified 01/05/24 13:00) UNKNOWN pollen extracts [POLLEN] Allergy (Mild, Verified 01/05/24 13:00) UNKNOWN gabapentin Adverse Reaction (Mild, Verified 01/05/24 13:00) Nausea and Vomiting DUST Allergy (Mild, Uncoded 01/05/24 13:00) UNKNOWN HPI MAT HPI Details Patient presents via telehealth for MAT appointment Reports she is waiting to have her pacemaker checked to get approval for surgical removal of hernia Reports she is being followed by Dr. Wheeler's office States her PCP has cut her down from 3 to 2 tranquilizers a day Says she is going to be looking for a new PCP Has been taking 2mg suboxone daily and is tolerating it well, does not feel it helps with pain [facility] Medical History (Updated 01/12/24 @ 05:32 by Bobby Martinez) Rheumatoid arthritis Upper respiratory tract infection Skin lesion of face Skin abscess Hospital discharge follow-up Laceration of elbow, right Contusion of elbow, right Right knee skin infection Knee pain Pacemaker Sinus pause Opioid use disorder COPD with acute exacerbation COPD (chronic obstructive pulmonary disease) Left knee pain Paroxysmal atrial fibrillation Knee pain Abdominal pain Smoker Neurodermatitis COPD exacerbation Scalp abscess Vaginal discharge Skin lesion Osteoarthritis of thoracic spine Anxiety Surgical History History of basal cell carcinoma (BCC) excision Mammogram declined History of bilateral cataract extraction History of ectopic History of hip replacement History of nasal surgery Family History Father No problems noted. Mother No problems noted. Social History Housing: Apartment Alcohol intake: current Alcohol intake frequency: 0-2 drinks per day Alcohol type: hard liquor Patient Tobacco Use Status: Current everyday Tobacco user Tobacco use type: Cigarette Cigarettes Per Day: 7 Years Smoked: 50 +/- e-Cigarette/Vaping Use: Never Used Second Hand Smoke Exposure: Yes service: No Current occupational status: retired and disabled Cognitive needs: Yes Hearing needs: No Vision needs: No Review of Systems Const Reports as per HPI Assessment & Plan Assessment & Plan (1) Opioid use disorder: Code(s): F11.90 - Opioid use, unspecified, uncomplicated Plan: -Continue suboxone same dose -Follow up 1 month Medications: Refilled buprenorphine-naloxone 2-0.5 mg (Suboxone) 1 film sublingual DAILY 28 ea 0RF Telehealth Telehealth Location of provider rendering services: practice address Location of patient: address on file Patient Identification confirmed using: Name, : Yes Telehealth method: voice only Patient verbally consented to treatment: Yes Patient verbally consented to billing insurance company: Yes Patient informed of any privacy concerns related to visit: Yes Minutes spent on Phone/Video with Pt.: 20 Coding Level of Care Code Tele Est Pt Level 3 (18224) Diagnoses Opioid use disorder F11.90 Time Spent (min) 30 Comment Time spent on phone, and performing chart review
== END 2024-01-17 14:26 | disposition home or self-care (01) ==
PROVIDERS: PCP Internal Medicine; Visit Provider Nurse Practitioner Family
DX: F11.90 Opioid use, unspecified, uncomplicated (principal)
CPT/HCPCS: 99442

== ENCOUNTER → 2024-01-17 13:58 | Outpatient (BNVA) | payer MEDICARE, SELFPAY | PROVIDERS: PCP Internal Medicine; Visit Provider Nurse Practitioner Family ==

== ENCOUNTER 2024-01-23 14:39 | Outpatient (AMB) | payer MEDICARE, SELFPAY ==
[2024-01-23 15:11] VITALS: BP 158/70; PULSE 69; BMI 21.0
--- NOTE | 2024-01-23 15:11 | A.OFFVIS_ITS ---
Intake Vital Signs 01/23/24 15:11 Height 5 ft 2 in Weight 115 lb BMI 21.0 BP 158/70 H Blood Pressure Location Lt brachial Position Sitting Pulse 69 Pulse Source Monitor Intake Visit Reasons: f/up r/s and med ck pre-op Allergies succinylcholine [SUCCINYLCHOLINE] Allergy (Severe, Verified 01/05/24 13:00) EXCESSIVE PARALYSIS tramadol Allergy (Intermediate, Verified 01/05/24 13:00) diarrhea, upset stomach cat dander [CATS] Allergy (Mild, Verified 01/05/24 13:00) UNKNOWN dog dander [DOGS] Allergy (Mild, Verified 01/05/24 13:00) UNKNOWN pollen extracts [POLLEN] Allergy (Mild, Verified 01/05/24 13:00) UNKNOWN gabapentin Adverse Reaction (Mild, Verified 01/05/24 13:00) Nausea and Vomiting DUST Allergy (Mild, Uncoded 01/05/24 13:00) UNKNOWN Medication List - Last Reconciled 01/23/24 by DICK TrejoC alprazolam 0.5 mg PO BID PRN 7 days buprenorphine-naloxone 2-0.5 mg (Suboxone) 1 film sublingual DAILY clobetasol 0.05% 1 appl topical BID 2 weeks diclofenac sodium 3% 1 appl topical BID 30 days flecainide 100 mg PO Q12H 30 days fluticasone furoate-vilanterol 100-25 mcg/dose (Breo Ellipta) 1 ea inhalation DAILY ketoconazole 2% 1 appl topical 2XW lidocaine 5% 1 appl topical BEDTIME PRN 30 days lisinopril 10 mg PO DAILY 90 days mupirocin 2% 1 appl topical BID 30 days propranolol ER 60 mg PO DAILY rivaroxaban (Xarelto) 20 mg PO DAILY sodium phosphates 19-7 gram/118 mL (Fleet Enema) 118 mL ID BEDTIME PRN Spiriva with HandiHaler (tiotropium bromide) 1 cap inhalation DAILY 30 days NS HPI f/up r/s and med ck pre-op HPI Details Yamileth is a 78-year-old female past medical history of hypertension, paroxysmal atrial fibrillation, cardiomyopathy, COPD, pacemaker who presents for follow-up. Her last prior visit to our office was 12/27/2022. Today she reports that since her last visit she had 3 different types of skin cancer removed from her scalp. She has been experiencing much discomfort from this. She is requesting some type of medication to help relieve her pain. She also tells me that her PCP reduced her tranquilizers from 3 a day down to 2 a day. She says she is not doing well with this and is requesting something to help her. She is taking Suboxone but can only tolerate half a pill as she had a rash with a full tablet. She says this is not doing anything for her and asking for suggestions. She denies any chest discomfort at rest or with activity. No concerning shortness of breath, palpitations, lightheadedness, presyncope, syncope, PND, orthopnea or edema. She does only light physical activities. Takes all meds as directed. No bleeding issues reported. [facility] Medical History (Updated 01/23/24 @ 17:00 by Tammi Ochoa NP-C) Rheumatoid arthritis Upper respiratory tract infection Skin lesion of face Skin abscess Hospital discharge follow-up Laceration of elbow, right Contusion of elbow, right Right knee skin infection Knee pain Pacemaker Sinus pause Opioid use disorder COPD with acute exacerbation COPD (chronic obstructive pulmonary disease) Left knee pain Paroxysmal atrial fibrillation Knee pain Abdominal pain Smoker Neurodermatitis COPD exacerbation Scalp abscess Vaginal discharge Skin lesion Osteoarthritis of thoracic spine Anxiety Surgical History History of basal cell carcinoma (BCC) excision Mammogram declined History of bilateral cataract extraction History of ectopic History of hip replacement History of nasal surgery Family History Father No problems noted. Mother No problems noted. Social History Housing: Apartment Alcohol intake: current Alcohol intake frequency: 0-2 drinks per day Alcohol t ype: hard liquor Patient Tobacco Use Status: Current everyday Tobacco user Tobacco use type: Cigarette Cigarettes Per Day: 7 Years Smoked: 50 +/- e-Cigarette/Vaping Use: Never Used Second Hand Smoke Exposure: Yes service: No Current occupational status: retired and disabled Cognitive needs: Yes Hearing needs: No Vision needs: No Review of Systems Const Details: general malaise. anxiety issues All systems reviewed & are unremarkable except as noted in HPI and below Denies weakness ENT Denies dizziness Card Denies chest pain, Denies chest pain with activity, Denies syncope, Denies rapid heart rate, Denies pedal edema, Denies edema, Denies leg edema, Denies lightheadedness, Denies palpitations, Denies dyspnea, Denies dyspnea on exertion and Denies orthopnea Resp Denies cough, Denies dyspnea and Denies dyspnea on exertion GI Denies hematochezia and Denies change in stool character Musc Denies abnormal gait, Denies muscle cramps, Denies muscle weakness, Denies numbness, Denies radiating pain into limb and Denies tingling Neuro Denies abnormal gait, Denies dizziness, Denies syncope, Denies numbness, Denies tingling and Denies weakness Endo Denies palpitations Physical Exam Vital Signs: Last Vital Signs Pulse 69 01/23/24 15:11 BP 158/70 H 01/23/24 15:11 BMI result Body Mass Index 21.0 Const General: cooperative, comfortable and no acute distress Orientation/consciousness: patient oriented x3 Neck Neck: Yes normal visual inspection and Yes no JVD Resp Effort & Inspection: normal respiratory effort Auscultation: clear to auscultation bilaterally, no crackles, no rales, no rhonchi and no wheezes Cardio Jugular venous distension: no JVD Rate: regular rate Rhythm: regular rhythm Heart sounds: S1 normal heart sound present, S2 normal heart sound present, no murmurs and no rubs Neuro General: patient oriented x3 Extrem General: Yes normal to inspection and No no pedal edema Psych Appearance: grossly normal Mental Status: mental status grossly normal Speech and movement: Normal speech and movement present Office Procedures Cardiac Device Check Cardiac Device Check Details: Medtronic dual-chamber pacemaker interrogation today, battery 12.3 years, AAIR to DDDR mode, low rate 60, a pace, V sense rhythm, a paced 47.3%, V paced less than 0.1%, no episodes since last [facility] transmission 2012, right atrial threshold 0.75 volts at 0.4 milliseconds, RV threshold 0.5 volts at 0.4 milliseconds [id number] Cardiac Device Check, pacemaker dual lead Procedure code (CPT) selection complete EKG Details: Normal sinus rhythm, possible left atrial enlargement, incomplete right bundle branch block, LVH with repolarization abnormality, QTC 497 milliseconds, rate 68 [id number], Complete Assessment & Plan Assessment & Plan (1) Paroxysmal atrial fibrillation: Comment: Status post ablation. Being maintained on antiarrhythmic with flecainide and has done very well with rhythm control approach Code(s): I48.0 - Paroxysmal atrial fibrillation Plan: History of paroxysmal atrial fibrillation. She is on flecainide and propranolol for rhythm and rate control. EKG done today showing sinus rhythm with marked ST abnormalities which seem most likely related to LVH with repolarization abnormality, rate 68. No reports of heart palpitations. She is on Xarelto for anticoagulation. No bleeding issues reported. Labs done on 01/02/2024 had shown potassium 2.8, creatinine 0.71. She was in the ER that day and tells me she was given potassium supplement. Strongly encouraged to have labs today to recheck electrolytes. She states she will go tomorrow. BMP ordered. (2) Abnormal EKG: Code(s): R94.31 - Abnormal electrocardiogram [ECG] [EKG] Plan: As above. Asymptomatic at time of EKG tracing. ST abnormalities more pronounced then last EKG. (3) Hypokalemia: Code(s): E87.6 - Hypokalemia Plan: As above. Rechecking at this time (4) Hypertension: Code(s): I10 - Essential (primary) hypertension Qualifiers: Hypertension type: primary hypertension Qualified Code(s): I10 - Essential (primary) hypertension Plan: Mild elevation today. She says she is taking her medications as directed. She describes having issues with pain in her scalp. Referred her back to her senior property accountant for this. Will increase her lisinopril up to 20 mg daily from 10 mg daily. This will help with her blood pressure as well as her potassium. (5) Pacemaker: Comment: Medtronic dual-chamber pacemaker placement 12/07/2021 Code(s): Z95.0 - Presence of cardiac pacemaker Plan: Medtronic dual-chamber pacemaker interrogation today shows device is functioning normally. Remote monitoring in use. Next office interrogation due in 6 months. (6) Cardiomyopathy: Code(s): I42.9 - Cardiomyopathy, unspecified Plan: Last echocardiogram in our system 08/17/2019 showed EF 25-35%, right atrial enlargement, mild MR, [id number] TR. She has no signs of heart failure on examination today. She is on propanolol and lisinopril. Will check echocardiogram to re-evaluate EF, valves and LV wall thickness. Plan Time spent on chart review, documentation, interview and assessment Orders: Orders 2 CA echo transthoracic complete 01/23/24 I48.0 - Paroxysmal atrial fibrillation Basic Metabolic Panel 01/23/24 E87.6 - Hypokalemia, R94.31 - Abnormal electrocardiogram [ECG] [EKG] Medications: New lisinopril 20 mg PO DAILY 90 tabs 3RF Discontinued sodium phosphates 19-7 gram/118 mL (Fleet Enema) Discontinued Reason: Doctor's Order 118 mL ID BEDTIME PRN 133 mL 0RF constipation lisinopril Discontinued Reason: Doctor's Order 10 mg PO DAILY 90 days 90 tabs 1RF I10 - Essential (primary) hypertension Coding Level of Care Code Est Pt Level 4 (50214) Diagnoses Paroxysmal atrial fibrillation I48.0 Abnormal EKG R94.31 Hypokalemia E87.6 Primary hypertension I10 Hypertension type: primary hypertension Pacemaker Z95.0 Cardiomyopathy I42.9 CPT Codes Cardiac Device Check - Cardiac Device 2: [id number] Cardiac Device Check, pacem niurka dual lead ([id number]) EKG - CPT: 84095-Vjwfxinebohwedrew, Complete ([id number])
== END 2024-01-23 16:00 | disposition home or self-care (01) ==
PROVIDERS: PCP Internal Medicine; Visit Provider Nurse Practitioner Family
DX: R94.31 Abnormal electrocardiogram [ECG] [EKG] (principal)
CPT/HCPCS: 93010; 93280; 99214

== ENCOUNTER → 2024-01-23 14:39 | Outpatient (BNVA) | payer MEDICARE, SELFPAY | PROVIDERS: PCP Internal Medicine; Visit Provider Nurse Practitioner Family | DX: I48.0 Paroxysmal atrial fibrillation (principal); I45.19 Other right bundle-branch block; I51.7 Cardiomegaly; R94.31 Abnormal electrocardiogram [ECG] [EKG]; E87.6 Hypokalemia; Z45.018 Encounter for adjustment and management of other part of cardiac pacemaker | CPT/HCPCS: 93005; 93280; 99212 ==

== ENCOUNTER 2024-01-25 15:46 | Outpatient (REF) | payer MEDICARE, SELFPAY ==
[2024-01-25 18:55] LABS: Anion Gap 16 (12-20); Blood Urea Nitrogen 12 mg/dL (9-16); Calcium 9.8 mg/dL (8.4-10.2); Carbon Dioxide 31 mmol/L (22-29); Chloride 103 mmol/L (96-108); Estimated Glomerular Filt Rate > 60; Potassium 3.6 mmol/L (3.3-5.1); Sodium 146 mmol/L (135-145)
[2024-01-25 19:17] LABS: Glucose Random 101 mg/dL (60-115)
== END 2024-01-25 15:47 | disposition home or self-care (01) ==
LOC: HO.LAB 15:46
PROVIDERS: PCP Internal Medicine; Visit Provider Nurse Practitioner Family
DX: E87.6 Hypokalemia (principal); R94.31 Abnormal electrocardiogram [ECG] [EKG]
CPT/HCPCS: 36415; 80048

== ENCOUNTER → 2024-02-16 09:14 | Outpatient (REF) | payer MEDICARE, SELFPAY ==
--- NOTE | 2024-02-16 09:17 | CA_ITS ---
Transthoracic Echocardiogram Patient (Last, First, Middle): Yamileth Sandoval B Gender: Female Date of : 1945 Age: 78 Procedure Date: 02/16/2024 Procedure Type: Transthoracic Echocardiogram Location: OP Height: 154.94 cm Weight: 52.16 kg BSA: 1.49 m2 Heart Rate: 84 bpm BP: 142 / 86 mmHg Restrictive Preparation Operator: BHARTI Referring MD: Tammi Ochoa BENDING SHED WORKERDoris Symptoms: I48.0 - Paroxysmal atrial fibrillation Study Quality: Adequate ECG Rhythm: Sinus Conclusions: - The left ventricular systolic function is normal. The calculated ejection fraction is 65% by biplane method. - No obvious valvular pathology seen on this study. Findings Left Ventricle Normal left ventricular cavity size. There is mildly increased left ventricular wall thickness. The left ventricular systolic function is normal. The calculated ejection fraction is 65% by biplane method. There is no evidence of regional wall motion abnormalities. Evidence suggests grade I (mild) diastolic dysfunction. LV peak GLS -10.9%. Right Ventricle Normal right ventricular cavity size and systolic function. There is a pacemaker wire seen in the right ventricle. Atria The left atrium is mildly dilated. The right atrium is normal in size. Aortic Valve There is a normal trileaflet aortic valve. There is no aortic valve stenosis. There is no aortic valve regurgitation. Mitral Valve There is mild mitral annular calcification. There is no mitral valve regurgitation. There is no mitral valve stenosis. Pulmonic Valve The pulmonic valve is likely normal. Tricuspid Valve Normal tricuspid valve structure. There is mild tricuspid valve regurgitation. There is no evidence of pulmonary hypertension. Great Vessels The asc aorta is normal in size. Venous The inferior vena cava is normal in size and collapses less than 50% with inspiration. Pericardium/Pleural There is no evidence of pericardial effusion. Prior Study Comparison Changes noted compared to prior study dated: 08/19/2019. Improved LVEF. Recommendations, Care & Conclusions No obvious valvular pathology seen on this study. Measurements 2D Linear Measurements IVSd: 1.12 0.6-0.9/0.6-1.0 cm LVIDd: 4.00 3.9-5.3/4.2-5.9 cm LVIDd Index: 2.68 2.4-3.2/2.2-3.1 cm/m2 LVIDs: 2.66 2.0-3.6 cm LVPWd: 1.07 0.7-1.1 cm LA Diam: 3.10 2.7-3.8/3.0-4.0 cm LAIDs Index: 2.08 1.5-2.3 cm/m2 LV Mass: 180.10 67-162/88-224 g LV Mass Index: 120.87 43-95/49-115 g/m2 LVOT Diam: 2.10 3.0+(-)1.3 cm 2D Systolic Function EF 4C: 59.00 >55% EF 2C: 71.60 >55% EF BiP: 65.00 >55% Mitral Valve MV Pk E: 0.42 MV PK A: 0.62 MV Decel Time: 362.00 E/A: 0.70 E'Lateral: 3.24 E'Medial: 2.40 E/E' Med: 17.30 E/E' Lat: 12.80 PHT: 106.00 MVA PHT: 2.08 Decel Haakon: 1.23 Aortic Valve AoV Pk Luisito: 1.16 AoV Mn Luisito: 0.78 AoV VTI: 0.22 AoV Pk Grad: 5.00 Aov Mn Grad: 3.00 YUE Cont.VTI: 3.27 LVOT LVOT Pk Luisito: 0.88 LVOT Mn Luisito: 0.64 LVOT VTI: 0.21 LVOT Pk Grad: 3.00 LVOT Mn Grad: 2.00 LVOT Diam: 2.10 LVOT Area: 3.46 Diastolic Function MV Pk E: 0.42 MV Pk A: 0.62 E/A: 0.70 E'Medial: 2.40 E/E' Med: 17.30 E' Laterial: 3.24 E/E' Lat: 12.80 Right Ventricle TAPSE (mm): 21.60 TVS' Luisito: 9.73 Tricuspid Valve TR Pk Luisito: 2.52 TR Pk Grad: 25.00 RA Press: 8.00 RVSP: 33.00 Great Vessels Aorta Sinus of Valsalva: 2.81 2.0-3.5 cm Ao Asc: 2.40 2.1-3.4 cm Updated in Other Vendor System with Status of Final Yousuf Donald MD electronically signed on 02/18/2024 12:14:36 PM with status of Final
== END ==
LOC: HO.CARD 09:14
PROVIDERS: PCP Internal Medicine; Visit Provider Nurse Practitioner Family
DX: I48.0 Paroxysmal atrial fibrillation (principal)
CPT/HCPCS: 93306; 93356

== ENCOUNTER → 2024-02-16 09:17 | Outpatient (BNV) | payer MEDICARE, SELFPAY | PROVIDERS: PCP Internal Medicine; Visit Provider Internal Medicine | DX: I34.81 Nonrheumatic mitral (valve) annulus calcification (principal); I48.0 Paroxysmal atrial fibrillation | CPT/HCPCS: 93306; 93356 ==

== ENCOUNTER → 2024-02-23 08:17 | Outpatient (REF) | payer MEDICARE, SELFPAY | LOC: HO.CARD 08:17 | PROVIDERS: PCP Internal Medicine; Visit Provider Nurse Practitioner Family | DX: Z13.89 Encounter for screening for other disorder (principal) ==

== ENCOUNTER → 2024-03-26 23:59 | Outpatient (BNV) | payer MEDICARE, SELFPAY ==
--- NOTE | 2024-03-28 10:24 | MHC.OFFVIS ---
Intake Visit Reasons: Remote device ck-Medtronic Allergies succinylcholine [SUCCINYLCHOLINE] Allergy (Severe, Verified 01/05/24 13:00) EXCESSIVE PARALYSIS tramadol Allergy (Intermediate, Verified 01/05/24 13:00) diarrhea, upset stomach cat dander [CATS] Allergy (Mild, Verified 01/05/24 13:00) UNKNOWN dog dander [DOGS] Allergy (Mild, Verified 01/05/24 13:00) UNKNOWN pollen extracts [POLLEN] Allergy (Mild, Verified 01/05/24 13:00) UNKNOWN gabapentin Adverse Reaction (Mild, Verified 01/05/24 13:00) Nausea and Vomiting DUST Allergy (Mild, Uncoded 01/05/24 13:00) UNKNOWN [facility] Medical History (Updated 01/23/24 @ 17:00 by TESFAYE Trejo) Rheumatoid arthritis Upper respiratory tract infection Skin lesion of face Skin abscess Hospital discharge follow-up Laceration of elbow, right Contusion of elbow, right Right knee skin infection Knee pain Pacemaker Sinus pause Opioid use disorder COPD with acute exacerbation COPD (chronic obstructive pulmonary disease) Left knee pain Paroxysmal atrial fibrillation Knee pain Abdominal pain Smoker Neurodermatitis COPD exacerbation Scalp abscess Vaginal discharge Skin lesion Osteoarthritis of thoracic spine Anxiety Surgical History History of basal cell carcinoma (BCC) excision Mammogram declined History of bilateral cataract extraction History of ectopic History of hip replacement History of nasal surgery Family History Father No problems noted. Mother No problems noted. Social History Housing: Apartment Alcohol intake: current Alcohol intake frequency: 0-2 drinks per day Alcohol type: hard liquor Patient Tobacco Use Status: Current everyday Tobacco user Tobacco use type: Cigarette Cigarettes Per Day: 7 Years Smoked: 50 +/- e-Cigarette/Vaping Use: Never Used Second Hand Smoke Exposure: Yes service: No Current occupational status: retired and disabled Cognitive needs: Yes Hearing needs: No Vision needs: No Office Procedures Cardiac Device Check Cardiac Device Check Details: Remote pacemaker report generated 03/26/2024. Pacemaker function is adequate. Minimal burden of atrial fibrillation [id number] Cardiac Device Interrogation, pacemaker Procedure code (CPT) selection complete Assessment & Plan Assessment & Plan (1) Pacemaker: Comment: Medtronic dual-chamber pacemaker placement 12/07/2021 Code(s): Z95.0 - Presence of cardiac pacemaker Category: Medical Plan: See above Coding Level of Care Code Procedure Only Diagnoses Pacemaker Z95.0 CPT Codes Cardiac Device Check - Cardiac Device 12: [id number] Cardiac Device Interrogation, pacemaker ([id number])
== END ==
PROVIDERS: PCP Internal Medicine; Visit Provider Internal Medicine Cardiovascular Disease
DX: I48.91 Unspecified atrial fibrillation (principal); Z95.0 Presence of cardiac pacemaker
CPT/HCPCS: 93294

== ENCOUNTER 2024-04-18 14:12 | Outpatient (AMB) | payer MEDICARE, SELFPAY ==
--- NOTE | 2024-04-18 14:13 | A.OFFVIS_ITS ---
Vital Signs 04/18/24 14:14 Height 5 ft 2 in Weight 115 lb BMI 21.0 Intake Visit Reasons: re-discuss hernia repair Intake Note: This patient presents to re-discuss hernia repair. Patient c/o; reports pain and discomfort. Court Bailiff Or Sheriff Required: No Accompanied by: Daughter Allergies succinylcholine [SUCCINYLCHOLINE] Allergy (Severe, Verified 04/18/24 14:19) EXCESSIVE PARALYSIS tramadol Allergy (Intermediate, Verified 04/18/24 14:19) diarrhea, upset stomach cat dander [CATS] Allergy (Mild, Verified 04/18/24 14:19) UNKNOWN dog dander [DOGS] Allergy (Mild, Verified 04/18/24 14:19) UNKNOWN pollen extracts [POLLEN] Allergy (Mild, Verified 04/18/24 14:19) UNKNOWN gabapentin Adverse Reaction (Mild, Verified 04/18/24 14:19) Nausea and Vomiting DUST Allergy (Mild, Uncoded 04/18/24 14:19) UNKNOWN HPI HPI re-discuss hernia repair: Details: 78-year-old female with multiple medical problems including COPD, and has a pacemaker, here for follow-up for a left groin hernia. I had actually seen her in November 2023 for this. She says that she has been noticing this reducible mass on the left groin. This causes some discomfort. She does not really state how long she has noticed this. She has known history of heavy smoking and she has COPD. She does not use O2 supplementation at this time. She also describes chronic back pain and asked for oxycodone for this. She says that she has had a hard time to get this prescription from her primary care physician. When I saw her in 12/06/2023, she stated that she did not want to proceed with repair because of her overall medical condition. She now is contemplating proceeding with surgery as she says that she ?does not like? the hernia. She denies significant pain on the area. [facility] Medical History Rheumatoid arthritis Upper respiratory tract infection Skin lesion of face Skin abscess Hospital discharge follow-up Laceration of elbow, right Contusion of elbow, right Right knee skin infection Knee pain Pacemaker Sinus pause Opioid use disorder COPD with acute exacerbation COPD (chronic obstructive pulmonary disease) Left knee pain Paroxysmal atrial fibrillation Knee pain Abdominal pain Smoker Neurodermatitis COPD exacerbation Scalp abscess Vaginal discharge Skin lesion Osteoarthritis of thoracic spine Anxiety Surgical History History of basal cell carcinoma (BCC) excision Mammogram declined History of bilateral cataract extraction History of ectopic History of hip replacement History of nasal surgery Family History Father No problems noted. Mother No problems noted. Social History Housing: Apartment Alcohol intake: current Alcohol intake frequency: 0-2 drinks per day Alcohol type: hard liquor Patient Tobacco Use Status: Current everyday Tobacco user Tobacco use type: Cigarette Cigarettes Per Day: 7 Years Smoked: 50 +/- e-Cigarette/Vaping Use: Never Used Second Hand Smoke Exposure: Yes service: No Current occupational status: retired and disabled Cognitive needs: Yes Hearing needs: No Vision needs: No Review of Systems Const Denies chills and Denies fever(s) Card Denies chest pain, Denies dyspnea and Denies dyspnea on exertion Resp Denies cough, Denies dyspnea and Denies dyspnea on exertion GI Denies hematochezia and Denies change in bowel habits Denies hematuria Musc Denies back pain and Denies limited range of motion Neuro Denies focal weakness and Denies convulsions Psych Denies depression and Denies mood swings Physical Exam Const Other: Ambulating General: comfortable and no acute distress Orientation/consciousness: patient oriented x3 Neck Neck: Yes no lymphadenopathy Resp Auscultation: clear to auscultation bilaterally Cardio Rhythm: regular rhythm GI Other: Left inguinal hernia, obvious with Valsalva, easily reducible, nontender Palpation (GI): Soft to palpation, nontender and no guarding Neuro General: patient oriented x3 Assessment & Plan Assessment & Plan (1) Left inguinal hernia: Code(s): K40.90 - Unilateral inguinal hernia, without obstruction or gangrene, not specified as recurrent Category: Medical Plan: She had been seen by the windows infrastructure engineer. Workup including nuclear stress test shows an ejection fraction of 65%. She was deemed to be of low to intermediate risk for a left inguinal hernia repair. She says she now is considering to proceed with repair of this left inguinal hernia. She does state that she does not have pain on the area but describes that this sometimes can be uncomfortable. I had a long discussion with her about the technique of this procedure. I explained to her the risks including but not limited to bleeding, infections, injury to other organs including bowel, recurrence, postop pain, DE, and other inherent risks of anesthesia, as well as the benefits and alternatives. I also reviewed with her what to expect postoperatively. She is unable to decide again at this time. She says she will call me once she makes a decision. She will need to a preadmission testing if she decides to go ahead with the surgery. Coding Level of Care Code Est Pt Level 3 (34146) Diagnoses Left inguinal hernia K40.90
[2024-04-18 14:14] VITALS: BMI 21.0
== END 2024-04-18 14:34 | disposition home or self-care (01) ==
PROVIDERS: PCP Internal Medicine; Visit Provider Surgery
DX: K40.90 Unilateral inguinal hernia, without obstruction or gangrene, not specified as recurrent (principal)
CPT/HCPCS: 99213

== ENCOUNTER → 2024-04-18 14:12 | Outpatient (BNVA) | payer MEDICARE, SELFPAY | PROVIDERS: PCP Internal Medicine; Visit Provider Surgery | DX: K40.90 Unilateral inguinal hernia, without obstruction or gangrene, not specified as recurrent (principal) | CPT/HCPCS: 99212 ==

== ENCOUNTER 2024-05-18 13:05 | Outpatient (AMB) | payer MEDICARE, SELFPAY ==
--- NOTE | 2024-05-18 13:07 | A.OFFVISCC_ITS ---
Intake Visit Reasons: MAT tele Allergies succinylcholine [SUCCINYLCHOLINE] Allergy (Severe, Verified 04/18/24 14:19) EXCESSIVE PARALYSIS tramadol Allergy (Intermediate, Verified 04/18/24 14:19) diarrhea, upset stomach cat dander [CATS] Allergy (Mild, Verified 04/18/24 14:19) UNKNOWN dog dander [DOGS] Allergy (Mild, Verified 04/18/24 14:19) UNKNOWN pollen extracts [POLLEN] Allergy (Mild, Verified 04/18/24 14:19) UNKNOWN gabapentin Adverse Reaction (Mild, Verified 04/18/24 14:19) Nausea and Vomiting DUST Allergy (Mild, Uncoded 04/18/24 14:19) UNKNOWN HPI HPI MAT tele: Details: Patient presents for follow up via telehealth Has not been seen since January 2024 Has been taking 1/2 of 2mg film (1mg daily) Denies any side effects including constipation Has hernia repair coming up Reports that her psychiatric provider will be starting to taper her alprazolam, she verbalizes unhappiness around this plan [facility] Medical History Rheumatoid arthritis Upper respiratory tract infection Skin lesion of face Skin abscess Hospital discharge follow-up Laceration of elbow, right Contusion of elbow, right Right knee skin infection Knee pain Pacemaker Sinus pause Opioid use disorder COPD with acute exacerbation COPD (chronic obstructive pulmonary disease) Left knee pain Paroxysmal atrial fibrillation Knee pain Abdominal pain Smoker Neurodermatitis COPD exacerbation Scalp abscess Vaginal discharge Skin lesion Osteoarthritis of thoracic spine Anxiety Surgical History History of basal cell carcinoma (BCC) excision Mammogram declined History of bilateral cataract extraction History of ectopic History of hip replacement History of nasal surgery Family History Father No problems noted. Mother No problems noted. Social History Housing: Apartment Alcohol intake: current Alcohol intake frequency: 0-2 drinks per day Alcohol type: hard liquor Patient Tobacco Use Status: Current everyday Tobacco user Tobacco use type: Cigarette Cigarettes Per Day: 7 Years Smoked: 50 +/- e-Cigarette/Vaping Use: Never Used Second Hand Smoke Exposure: Yes service: No Current occupational status: retired and disabled Cognitive needs: Yes Hearing needs: No Vision needs: No Review of Systems Const Reports as per HPI Telehealth Telehealth Telehealth Platform: Telephone Location of provider rendering services: practice address Location of patient: address on file Patient Identification confirmed using: Name, : Yes Telehealth method: voice only Patient verbally consented to treatment: Yes Patient verbally consented to billing insurance company: Yes Minutes spent on Phone/Video with Pt.: 15 Assessment & Plan Assessment & Plan (1) Opioid use disorder: Code(s): F11.90 - Opioid use, unspecified, uncomplicated Category: Medical Plan: * refilled suboxone * continue at 1mg daily * follow up 2 months or sooner if needed Medications: Refilled buprenorphine-naloxone 2-0.5 mg (Suboxone) 1 film sublingual DAILY 30 ea 0RF
== END 2024-05-18 13:26 | disposition home or self-care (01) ==
PROVIDERS: PCP Internal Medicine; Visit Provider Nurse Practitioner Psychiatric/Mental Health
DX: F11.90 Opioid use, unspecified, uncomplicated (principal)
CPT/HCPCS: 99213

== ENCOUNTER → 2024-05-18 13:05 | Outpatient (BNVA) | payer MEDICARE, SELFPAY | PROVIDERS: PCP Internal Medicine; Visit Provider Nurse Practitioner Psychiatric/Mental Health ==

== ENCOUNTER 2024-06-11 10:48 | Emergency (ER) | payer OTHER, SELFPAY ==
--- NOTE | ~2024-06-11 | XR_ITS ---
EXAMINATION: XR PELVIS CLINICAL INFORMATION: Status post fall. Right-sided pelvic pain. COMPARISON: Selected images of the abdomen and pelvic CT scan of 01/03/2024 TECHNIQUE: AP view of the pelvis. FINDINGS: Bilateral total hip arthroplasty hardware is again noted with 3 acetabular fixation screws bilaterally. The visualized portions of the prosthesis are intact bilaterally. No evidence of lucency around the visualized portions of the bilateral hip prosthesis. Diffuse osteopenia. Symphysis pubis is intact. Degenerative changes are noted at the sacroiliac joints. Lower lumbar spondylosis. No suspicious lytic or blastic osseous lesions. Multiple phleboliths are noted in the pelvis. XR/XR pelvis 1-2V IMPRESSION: Diffuse osteopenia. No evidence of acute fracture or dislocation in the pelvis. No abnormal periprosthetic lucency is noted around the bilateral hip prosthesis to suggest hardware loosening. Electronically signed by: Jabier Cruz MD 06/11/2024 03:06 PM EDT
--- NOTE | ~2024-06-11 | XR_ITS ---
EXAMINATION: XR TIBIA AND FIBULA, RIGHT CLINICAL INFORMATION: Status post fall. Right leg pain. COMPARISON: Right knee x-rays of 05/21/2022 TECHNIQUE: AP and lateral views of the right tibia and fibula were obtained. FINDINGS: There is diffuse osseous demineralization. Severe osteoarthritic changes are noted at the knee joint with chondrocalcinosis in the knee. No evidence of soft tissue air or radiopaque foreign body. Knee joint and ankle joints are intact. Vascular calcifications. Prominent osteophytes at the anterior-superior aspect of the patella are again noted. XR/XR tibia fibula RT 2V IMPRESSION: No evidence of acute fracture or dislocation in the right tibia and fibula. Severe osteoarthritic changes in the right knee. Osteopenia. Electronically signed by: Jabier Cruz MD 06/11/2024 03:01 PM EDT
--- NOTE | ~2024-06-11 | XR_ITS ---
EXAMINATION: XR FEMUR, RIGHT CLINICAL INFORMATION: Right leg pain after fall. COMPARISON: X-ray of the pelvis performed same day. X-ray of the right knee 05/21/2022. CT scan of the abdomen and pelvis December 2023. TECHNIQUE: AP and lateral views of the right femur were obtained. FINDINGS: A right total hip arthroplasty is noted with the components in the usual position. No periprosthetic fracture or suspicious area of lucency. In the right knee, there is advanced osteoarthritis with chondrocalcinosis and a loose body in the suprapatellar recess. Arterial calcification noted. The femur is otherwise unremarkable. XR/XR femur RT 2V IMPRESSION: 1. No acute abnormality. 2. Right total hip arthroplasty without complication by x-ray. 3. Advanced osteoarthritis of the right knee. Electronically signed by: Ty Hyde MD 06/11/2024 02:31 PM EDT
[2024-06-11 10:56] VITALS: BP 136/84; BP 158/83; PULSE 107; PULSE 87; RESP 18; TEMP 36.6; O2SAT 96; BMI 21.5
--- NOTE | 2024-06-11 11:05 | ECG_ITS ---
Test Reason : DIZZINESS Blood Pressure : / mmHG Vent. Rate : 086 BPM Atrial Rate : 086 BPM P-R Int : 148 ms QRS Dur : 094 ms QT Int : 404 ms P-R-T Axes : 077 083 200 degrees QTc Int : 483 ms Normal sinus rhythm Left ventricular hypertrophy with repolarization abnormality ( [place] product ) Nonspecific ST abnormality Abnormal ECG When compared with ECG of 25-DEC-2021 22:35, T wave inversion now evident in Inferior leads T wave inversion more evident in Lateral leads Referred By: Joaquín De Leon Electronically Signed By:VINCENZO FINN
[2024-06-11 12:00] LABS: MANUAL DIFF FLAG NO
[2024-06-11 12:04] LABS: Basophils Percent Auto 0.6 % (0-2); Eosinophils Percent Auto 0.1 % (0-4); Hemoglobin 13.4 g/dl (12.0-16.0); Imm Gran Abs Auto 0.03 X10*3/uL (0.00-0.03); Imm Gran Pct Auto 0.4 % (0.0-0.4); Lymphocytes Absolute Auto 1.6 X10*3/uL (1.2-4.9); Lymphocytes Percent Auto 22.3 % (20-40); Mean Corpuscular HGB Conc 34.4 g/dl (31.0-35.0); Mean Corpuscular Hemoglobin 35.4 pg (27.0-33.0); Mean Corpuscular Volume 103.2 fL (80.0-98.0); Monocytes Absolute Auto 0.8 X10*3/uL (0.1-1.2); Monocytes Percent Auto 11.2 % (2-11); Neutrophils Absolute Auto 4.6 x10*3/uL (2.0-8.3); Neutrophils Percent Auto 65.4 % (45-73); Platelet Count 234 X10*3/uL (160-400); Red Blood Count 3.78 X10*6/uL (4.20-5.50); Red Cell Distribution Width 15.1 % (11.0-16.0)
--- NOTE | 2024-06-11 12:07 | PC.NURSE ---
Pt presents to ED via EMS, EMS reports she was found behind her apt building holding bottle of vodka, brother called for EMS. Pt admits to alcohlol use for many days unknown how long or how much. Also reports pain in her left groin area, has hernia that she was supposed to have surgery on but did not. Reports fall 2 weeks ago, left leg pain since, noted to have bruising from knee to toes on left side, no obvious deformities. Alert and mostly oriented, strong smell of ETOH, breathing even and unlabored, skin pale. Denies hx of alcohol withdrawal seizures.
[2024-06-11 12:20] LABS: Alanine Aminotransferase 19 U/L (0-31); Alkaline Phosphatase 116 U/L (39-117); Anion Gap 19 (12-20); Aspartate Amino Transferase 40 U/L (5-31); Bilirubin Direct 0.4 mg/dL (0.0-0.5); Blood Urea Nitrogen 22 mg/dL (9-16); Calcium 8.9 mg/dL (8.4-10.2); Carbon Dioxide 28 mmol/L (22-29); Chloride 103 mmol/L (96-108); Estimated Glomerular Filt Rate > 60; Ethanol 299 mg/dL; Glucose Random 83 mg/dL (60-115); Magnesium 1.9 mg/dL (1.6-2.6); Potassium 3.2 mmol/L (3.3-5.1); Sodium 147 mmol/L (135-145); Total Protein 6.9 g/dL (6.5-8.0)
[2024-06-11 12:23] LABS: Troponin-I High Sensitivity 19.5 ng/L (<3.5-17.0)
[2024-06-11 12:26] LABS: B Type Natriuretic Peptide 64 pg/mL (<100)
--- NOTE | 2024-06-11 12:26 | ED_ITS ---
HPI - General Adult General Chief complaint: General Medical Stated complaint: DIFF AMB,HERNIA PAIN,ETOH USE PER EMS Time Seen by Provider: 06/11/24 10:58 History of Present Illness ED Provider: Moises FLOWERS narrative: The patient is a 78-year-old woman with a history of alcoholism. According to paramedics the patient's brother came to see her and found her sitting with a bottle of vodka in her hand. The patient apparently had a fall 2 weeks ago but no recent falls. She said she injured her right lower leg 2 weeks ago. She has had a lot of bruising in the right lower leg she says. She complains of pain in both legs. She says that she has had difficulty walking. However she told me all this without the context of her brother finding her with a bottle of vodka. She told me that she had called her brother and said that she was weak and that he had then called an ambulance. Related Data Previous Rx's ?Medication ?Instructions ?Recorded clobetasol 0.05 % topical gel 1 appl topical BID 2 weeks #30 12/10/22 grams lidocaine 5 % topical ointment 1 appl topical BEDTIME PRN pain 30 08/18/23 days #30 grams flecainide 100 mg tablet 100 mg PO Q12H 30 days #60 tabs 09/19/23 Spiriva with HandiHaler 18 mcg and 1 cap inhalation DAILY 30 days #30 11/26/23 inhalation capsules (tiotropium inhalations bromide) fluticasone furoate 100 1 ea inhalation DAILY #180 ea 11/26/23 mcg-vilanterol 25 mcg/dose inhalation powder (Breo Ellipta) diclofenac sodium 3 % topical gel 1 appl topical BID 30 days #100 12/12/23 grams propranolol 60 mg capsule,24 60 mg PO DAILY #90 caps 12/26/23 hr,extended release lisinopril 20 mg tablet 20 mg PO DAILY #90 tabs 01/24/24 alprazolam 0.5 mg tablet 0.5 mg PO BID PRN anxiety 7 days 03/13/24 #14 tabs rivaroxaban 20 mg tablet (Xarelto) 20 mg PO DAILY #90 tabs 03/23/24 ketoconazole 2 % shampoo 1 appl topical 2XW #120 mL 04/24/24 mupirocin 2 % topical ointment 1 appl topical BID 30 days #22 04/24/24 grams buprenorphine 2 mg-naloxone 0.5 mg 1 film sublingual DAILY #30 ea 05/18/24 sublingual film (Suboxone) Allergies Allergy/AdvReac Type Severity Reaction Status Date / Time succinylcholine Allergy Severe EXCESSIVE Verified 06/11/24 11:09 [SUCCINYLCHOLINE] PARALYSIS tramadol Allergy Intermediate diarrhea, Verified 04/18/24 14:19 upset stomach cat dander [CATS] Allergy Mild UNKNOWN Verified 04/18/24 14:19 dog dander [DOGS] Allergy Mild UNKNOWN Verified 04/18/24 14:19 pollen extracts [POLLEN] Allergy Mild UNKNOWN Verified 04/18/24 14:19 gabapentin AdvReac Mild Nausea and Verified 04/18/24 14:19 Vomiting DUST Allergy Mild UNKNOWN Uncoded 04/18/24 14:19 Review of Systems 2 Review of Systems: Yes all other systems are reviewed and are negative PMFSH Past Medical History Medical History Rheumatoid arthritis Upper respiratory tract infection Skin lesion of face Skin abscess Hospital discharge follow-up Laceration of elbow, right Contusion of elbow, right Right knee skin infection Knee pain Pacemaker Sinus pause Opioid use disorder COPD with acute exacerbation COPD (chronic obstructive pulmonary disease) Left knee pain Paroxysmal atrial fibrillation Knee pain Abdominal pain Smoker Neurodermatitis COPD exacerbation Scalp abscess Vaginal discharge Skin lesion Osteoarthritis of thoracic spine Anxiety Surgical History History of basal cell carcinoma (BCC) excision Mammogram declined History of bilateral cataract extraction History of ectopic History of hip replacement History of nasal surgery Family History Family History Father No problems noted. Mother No problems noted. Social History Social History Housing: Apartment Alcohol intake: current Alcohol intake frequency: 0-2 drinks per day Alcohol type: hard liquor Patient Tobacco Use Status: Current everyday Tobacco user Tobacco use type: Cigarette Cigarettes Per Day: 7 Years Smoked: 50 Smoked in Last 30 Days: No e-Cigarette/Vaping Use: Never Used Second Hand Smoke Exposure: Yes Use of substances other than those prescribed or required for medical reasons: No Advance Directives: Yes Advance Directives Information Provided: No Advance Directives on File: No service: No Current occupational status: retired and disabled Cognitive needs: Yes Hearing needs: No Vision needs: No Physical Exam ED Vital Signs: Vital Signs - 24 hr 06/11/24 10:56 06/11/24 15:29 Temperature 97.8 F 98.4 F Pulse Rate 87 101 H Respiratory Rate 18 20 Blood Pressure 158/83 H 188/101 H Pulse Oximetry 96 97 Oxygen Delivery Method Room Air Room Air BMI result Body Mass Index 21.5 Const Other: The patient is a frail 78-year-old who was awake and alert. She looks somewhat chronically ill but not obviously acutely ill. HENMT Other: No obvious signs of trauma to the head or the face. No raccoon eyes. No coffman sign. Mucous membranes are moist Eyes Other: Pupils are round equal, extraocular movements are intact, conjunctivae are clear Neck Other: No JVD, no posterior C-spine tenderness Resp Effort & Inspection: normal respiratory effort Auscultation: clear to auscultation bilaterally Cardio Rate: regular rate Rhythm: regular rhythm Heart sounds: S1 normal heart sound present and S2 normal heart sound present GI Other: Abdomen is soft and nontender Skin Other: There is a lot of old bruising to the lateral aspect of the right lower leg. No acute bruising. Skin is intact Neuro Other: The patient is awake and alert. She seems reasonably well oriented. Cranial nerves seem intact. She is able to move all of her extremities. She says she has a lot of pain in her legs, particularly her right lower leg but she seems able to move the legs with essentially normal strength. Extrem Other: There is a lot of old bruising on the lateral aspect of the right lower leg. She is able to move the leg fairly well. Medications Administered Discontinued Medications Generic Name Dose Route Start Last Admin Trade Name Freq PRN Reason Stop Dose Admin Acetaminophen 650 mg 06/11/24 12:25 06/11/24 12:33 Acetaminophen 325 Mg Tablet PO 06/11/24 12:26 Not Given ONCE ONE Morphine Sulfate 7.5 mg 06/11/24 12:31 06/11/24 12:43 Morphine Sulfate Immed Release 15 Mg Tablet PO 06/11/24 12:32 7.5 mg ONCE ONE Administration Potassium Chloride 40 meq 06/11/24 12:25 06/11/24 12:51 Potassium Chloride Er 20 Meq Tab.Er.Prt PO 06/11/24 12:26 40 meq ONCE ONE Administration Medical Decision Making Medical Decision Making [facility] [place] Narrative: The patient is a 78-year-old woman who came to the emergency room by ambulance. Apparently her brother had sent a friend he could do a wellness check and the patient seemed intoxicated with a bottle of vodka and so an ambulance was called and she was brought to the hospital. The patient expressed satisfaction and being brought here although she asked for pain medicine for her legs. She said that she has been trouble walking because of the pain in her legs and she wanted pain medicine. Apparently she has recently had her alprazolam dose decreased. She has also been prescribed Suboxone by Carmen Johnson but the patient ultimately told me that she is not taking any Suboxone recently. She is also on Lexapro. Apparently been referred by her primary care doctor, Dr. Garay to a mental health clinic, the [facility] at [address] [place] [address] in [place]. The patient's daughter says the patient has been extremely anxious and depressed because she has been given an eviction notice by her landlord. The patient is very afraid and depressed that she might lose her apartment. Apparently she has violated the rules of smoking at the apartment building. The patient's alcohol level was 299. She was frequently asking for pain medication. A medical workup was done that was largely negative. She had an EKG that was abnormal but she has 2 negative troponins and no anginal symptoms. My plan was to get a screening CT scan and have the patient evaluated by the care team and addiction Medicine. Unfortunately before this happened the patient eloped from the emergency department. Apparently a car picked her up from the curb outside the emergency room agents. At that point it became clear to me that the patient was significantly disorganized and acting in a manner very detrimental to her health. I suspect, based on history from the daughter, that the patient may be quite depressed. I think the patient needs a formal mental health evaluation. I have therefore filled out a section 12 to have the patient returnedto the emergency room. The [place] police were informed. Lab Data 06/11/24 11:54 06/11/24 11:54 Labs: Lab Results 06/11/24 06/11/24 Range/Units 11:54 14:39 WBC 7.0 (4.8-10.8) X10*3/uL RBC 3.78 L (4.20-5.50) X10*6/uL Hgb 13.4 (12.0-16.0) g/dl Hct 39.0 (37.0-47.0) % MCV 103.2 H (80.0-98.0) fL MCH 35.4 H (27.0-33.0) pg MCHC 34.4 (31.0-35.0) g/dl RDW 15.1 (11.0-16.0) % Plt Count 234 D (160-400) X10*3/uL MPV 10.0 (9.4-12.3) fL Immature Gran % (Auto) 0.4 (0.0-0.4) % Neut % (Auto) 65.4 (45-73) % Lymph % (Auto) 22.3 (20-40) % [place] % (Auto) 11.2 H (2-11) % Eos % (Auto) 0.1 (0-4) % Baso % (Auto) 0.6 (0-2) % Lymph # (Auto) 1.6 (1.2-4.9) X10*3/uL [place] # (Auto) 0.8 (0.1-1.2) X10*3/uL Eos # (Auto) 0.0 (0.0-0.4) X10*3/uL Baso # (Auto) 0.0 (0.0-0.2) X10*3/uL Abs Immat Gran (auto) 0.03 (0.00-0.03) X10*3/uL Absolute Neuts (auto) 4.6 (2.0-8.3) x10*3/uL Absolute Nucleated RBC 0.000 (0.0-0.012) X10*3/uL Nucleated RBC % (auto) 0.0 (0.0-0.2) /100WBC Sodium 147 H (135-145) mmol/L Potassium 3.2 L (3.3-5.1) mmol/L Chloride 103 (96-108) mmol/L Carbon Dioxide 28 (22-29) mmol/L Anion Gap 19 (12-20) BUN 22 H (9-16) mg/dL Creatinine 0.67 (0.5-1.4) mg/dL Estim Creat Clear Calc 53.0 Estimated GFR > 60 Random Glucose 83 (60-115) mg/dL Calcium 8.9 D (8.4-10.2) mg/dL Magnesium 1.9 (1.6-2.6) mg/dL Total Bilirubin 1.0 (0.0-1.0) mg/dL Direct Bilirubin 0.4 (0.0-0.5) mg/dL AST 40 H (5-31) U/L ALT 19 (0-31) U/L Alkaline Phosphatase 116 (39-117) U/L Total Creatine Kinase 134 (26-140) U/L Troponin I High Sens 19.5 H 17.3 H (<3.5-17.0) ng/L C-Reactive Protein 0.20 (< or = 0.50) mg/dL B-Natriuretic Peptide 64 (<100) pg/mL Total Protein 6.9 (6.5-8.0) g/dL Albumin 4.0 (3.5-5.0) g/dL Ethyl Alcohol 299 mg/dL Influenza Type A (PCR) NEGATIVE (Negative) Influenza Type B (PCR) NEGATIVE (Negative) RSV RNA Qual (PCR) NEGATIVE (Negative) SARS-CoV-2 RNA (RT-PCR) NEGATIVE (Negative) Discharge Plan Discharge Clinical Impression: Alcohol intoxication, Disorganized behavior, Falls, Depression Patient Disposition: Elopement Prescriptions: No Action clobetasol 0.05 % gel 1 appl topical BID 14 Days Qty: 30 0RF flecainide 100 mg tablet 100 mg PO Q12H 30 Days Qty: 60 5RF fluticasone furoate-vilanterol [Breo Ellipta] 100-25 mcg/dose blister with device 1 ea inhalation DAILY Qty: 180 3RF tiotropium bromide [Spiriva with HandiHaler] 18 mcg capsule, w/inhalation device 1 cap inhalation DAILY 30 Days Qty: 30 6RF propranolol 60 mg capsule,extended release 24 hr 60 mg PO DAILY Qty: 90 3RF alprazolam 0.5 mg tablet 0.5 mg PO BID PRN (Reason: anxiety) 7 Days Qty: 14 0RF Xarelto 20 mg tablet 20 mg PO DAILY Qty: 90 3RF mupirocin 2 % ointment 1 appl topical BID 30 Days Qty: 22 0RF ketoconazole 2 % shampoo 1 appl topical 2XW Qty: 120 0RF lidocaine 5 % ointment 1 appl topical BEDTIME PRN (Reason: pain) 30 Days Qty: 30 1RF diclofenac sodium 3 % gel 1 appl topical BID 30 Days Qty: 100 8RF lisinopril 20 mg tablet 20 mg PO DAILY Qty: 90 3RF buprenorphine-naloxone [Suboxone] 2-0.5 mg film 1 film sublingual DAILY Qty: 30 0RF Discharge Date/Time: 06/11/24 16:38 Print Language: Argentine
[2024-06-11 12:43] LABS: Influenza A PCR NEGATIVE (Negative); Influenza B PCR NEGATIVE (Negative); Resp Syncy Virus RNA Qual PCR NEGATIVE (Negative); SARS COV2 PCR INHOUSE NEGATIVE (Negative)
[2024-06-11] MEDS: Morphine Sulfate Immed Release 15 MG TABLET 7.5 MG PO (12:43)
[2024-06-11] MEDS: Potassium Chloride ER 20 MEQ TAB.ER.PRT 40 MEQ PO (12:51)
[2024-06-11 15:06] LABS: Troponin-I High Sensitivity 17.3 ng/L (<3.5-17.0)
[2024-06-11 15:29] VITALS: BP 188/101; PULSE 101; RESP 20; TEMP 36.9; O2SAT 97
--- NOTE | 2024-06-11 15:32 | MHC.EDTECH ---
Accompanied patient to restroom, placed hat in toilet to collect urine. Once patient finished urinating, she turned around lifted up the toilet seat removed the hat and dumped it in the toilet. Patient stated I'm sorry, I didn't know you wanted it .
--- NOTE | 2024-06-11 16:38 | PC.NURSE ---
Patient noted to not be in her bed ([address]) in ED. This RN was in another patient's room providing care. Pt eloped. school librarian (Erin Reilly) was assisting this RN in the other patient's room. Upon exiting room 10, Yamileth ([address]) was noted to be missing. Security, school librarian, provider (Joaquín De Leon), & system manager (Jovanni Sosa) notified of pt elopement. Upon further exam by security staff, patient left the ED in a car (as evidenced on video). Pt did not have IV access, and left in her own clothing. Left behind a sweater that was labeled and secured by security.
== END 2024-06-11 16:38 | disposition left against medical advice (07) ==
PROVIDERS: Emergency Provider Emergency Medicine; PCP Internal Medicine
DX: F10.129 Alcohol abuse with intoxication, unspecified (principal); Y90.8 Blood alcohol level of 240 mg/100 ml or more; R42 Dizziness and giddiness; R94.31 Abnormal electrocardiogram [ECG] [EKG]; R06.02 Shortness of breath; M79.604 Pain in right leg; R10.2 Pelvic and perineal pain; Z03.818 Encounter for observation for suspected exposure to other biological agents ruled out; Z79.899 Other long term (current) drug therapy; Z51.81 Encounter for therapeutic drug level monitoring
CPT/HCPCS: 0241U; 36415; 72170; 73552; 73590; 80048; 80076; 80307; 82550; 83735; 83880; 84484; 85025; 86140; 93005; 99284

== ENCOUNTER 2024-06-11 17:46 | Inpatient (IN) | payer OTHER, SELFPAY ==
--- NOTE | ~2024-06-11 | CT_ITS ---
EXAMINATION: CT HEAD WITHOUT CONTRAST CLINICAL INFORMATION: confusion, hallucinations, R/O mass effect/stroke COMPARISON: CT head September 08, 2023 TECHNIQUE: Contiguous axial imaging was performed from the skull base to vertex without intravenous administration of contrast. Coronal and sagittal reformatted images are performed at the CT scanner. This CT examination was performed using dose optimization techniques as appropriate, variously including the following: *Automated exposure control *Adjustment of mA and/or kV according to patient size (this includes techniques or standardized protocols for targeted exams where dose is matched to indication/reason for exam; i.e. extremities or head) *Use of iterative reconstruction technique DLP: 542 mGy-cm. FINDINGS: There is no evidence of acute intracranial hemorrhage or territorial infarction. No abnormal mass-effect or midline shift is seen. [place] to white matter differentiation is well preserved. No extra-axial fluid collections are identified. There is generalized global volume loss. There is moderate prominence of the ventricles and the sulci . There is mild hypodensity of the periventricular white matter due to chronic small vessel ischemic disease. There are vascular calcifications of the internal carotid arteries bilaterally. There is no osseous abnormality. The mastoid air cells and visualized portions of the paranasal sinuses are well-aerated. CT/CT head/brain wo IV con IMPRESSION: No acute intracranial pathology. Electronically signed by: Antoine Talavera MD 06/12/2024 04:15 PM EDT
--- NOTE | 2024-06-11 17:51 | ED.GENADULT ---
HPI - General Adult General Chief complaint: Psychiatric Symptoms Stated complaint: SECTION 12 Time Seen by Provider: 06/11/24 17:51 Source: patient and EMS Mode of arrival: EMS Limitations: no limitations History of Present Illness HPI narrative: Patient is a 78-year-old female who presents to the emergency department via EMS. She was evaluated in this emergency department earlier this afternoon, her brother had presented to her home for a wellness check and she seemed intoxicated was found to have a bottle of vodka in her hands. Earlier today there was report that her alprazolam dosage had recently been decreased, she has been prescribed Suboxone by Carmen Johnson from addiction medicine but ultimately reports she has not been taking it, also on Lexapro. Patient's daughter expressed to provider earlier today that she has been extremely anxious and depressed she has been given an eviction notice by her landlord. When she was in the emergency department today she was acutely intoxicated and unfortunately eloped from the emergency department. Provider had concerned that she was significantly disorganized when acting in a manner that would be detrimental to her health, and felt that she would benefit from a formal mental health evaluation, soft mildly police were informed and she was brought back to the emergency department and is on a section 12. Related Data Home Medications ?Medication ?Instructions ?Recorded ?Confirmed alprazolam 0.25 mg tablet 0.25 mg PO DAILY 06/11/24 06/11/24 fluticasone furoate 100 1 ea inhalation DAILY 06/11/24 06/11/24 mcg-vilanterol 25 mcg/dose inhalation powder (Breo Ellipta) lisinopril 20 mg tablet 20 mg PO DAILY 06/11/24 06/11/24 propranolol 60 mg capsule,24 60 mg PO DAILY 06/11/24 06/11/24 hr,extended release rivaroxaban 20 mg tablet (Xarelto) 20 mg PO DAILY 06/11/24 06/11/24 Allergies Allergy/AdvReac Type Severity Reaction Status Date / Time succinylcholine Allergy Severe EXCESSIVE Verified 06/11/24 18:34 [SUCCINYLCHOLINE] PARALYSIS tramadol Allergy Intermediate diarrhea, Verified 06/11/24 18:34 upset stomach cat dander [CATS] Allergy Mild UNKNOWN Verified 06/11/24 18:34 dog dander [DOGS] Allergy Mild UNKNOWN Verified 06/11/24 18:34 pollen extracts [POLLEN] Allergy Mild UNKNOWN Verified 06/11/24 18:34 gabapentin AdvReac Mild Nausea and Verified 06/11/24 18:34 Vomiting DUST Allergy Mild UNKNOWN Uncoded 06/11/24 18:34 Review of Systems Review of Systems: Yes all other systems are reviewed and are negative [facility] Past Medical History Attestation statement: The following information was validated with the patient. Source: old records reviewed Medical History Rheumatoid arthritis Upper respiratory tract infection Skin lesion of face Skin abscess Hospital discharge follow-up Laceration of elbow, right Contusion of elbow, right Right knee skin infection Knee pain Pacemaker Sinus pause Opioid use disorder COPD with acute exacerbation COPD (chronic obstructive pulmonary disease) Left knee pain Paroxysmal atrial fibrillation Knee pain Abdominal pain Smoker Neurodermatitis COPD exacerbation Scalp abscess Vaginal discharge Skin lesion Osteoarthritis of thoracic spine Anxiety Surgical History History of basal cell carcinoma (BCC) excision Mammogram declined History of bilateral cataract extraction History of ectopic History of hip replacement History of nasal surgery Family History Family History Father No problems noted. Mother No problems noted. Social History Social History Housing: Apartment Alcohol intake: current Alcohol intake frequency: 3 or more drinks per day Alcohol type: hard liquor Patient Tobacco Use Status: Current everyday Tobacco user Tobacco use type: Cigarette Cigarettes Per Day: 7 Years Smoked: 50 Smoked in Last 30 Days: No e-Cigarette/Vaping Use: Never Used Second Hand Smoke Exposure: Yes Use of substances other than those prescribed or required for medical reasons: No Advance Directives: No Advance Directives Information Provided: No service: No Current occupational status: retired and disabled Cognitive needs: Yes Hearing needs: No Vision needs: No Physical Exam ED Vital Signs: Vital Signs - 24 hr 06/11/24 18:20 06/11/24 23:49 06/12/24 03:19 Temperature 97.9 F 98.0 F 98.7 F Pulse Rate 103 H 99 74 Respiratory Rate 16 17 16 Blood Pressure 128/86 160/109 H 200/103 H Pulse Oximetry 91 L 95 95 Oxygen Delivery Method Room Air Room Air 06/12/24 03:27 06/12/24 03:28 06/12/24 05:20 Temperature Pulse Rate 74 71 Respiratory Rate 16 Blood Pressure 200/103 H 200/103 H 174/97 H Pulse Oximetry 97 Oxygen Delivery Method 06/12/24 09:46 06/12/24 09:46 Temperature 97.1 F Pulse Rate 86 86 Respiratory Rate 16 Blood Pressure 158/105 H 158/105 H Pulse Oximetry 97 Oxygen Delivery Method Room Air BMI result Body Mass Index 21.0 Appearance: Alert.?Oriented to person, place and time. No acute distress.?Normal affect. Eyes: Pupils equal, round and reactive to light.? ENT: Pharynx normal.?? Neck: Normal inspection.? Neck supple.?? CVS: Heart sounds normal. Normal heart rate and rhythm.? Pulses normal.?? Respiratory: No respiratory distress.? Lung sounds clear to auscultation bilaterally?? Abdomen: Soft and non-tender. Normoactive bowel sounds. No pulsatile mass.?? Skin: Skin warm and dry.? Normal skin color.? Normal skin turgor.?? Extremities: No lower extremity edema.? No calf ttp? Neuro: Moves all extremities spontaneously. Sensation intact bilaterally. CN II-XII intact. No focal neuro deficits. Ambulates with normal steady gait. Course Reevaluation(s) Reevaluation #1: Evaluated by care team, deemed inpatient bed search which I agree with Medications Administered Generic Name Dose Route Start Last Admin Trade Name Freq PRN Reason Stop Dose Admin Alprazolam 0.25 mg 06/12/24 09:00 06/12/24 08:58 Alprazolam 0.25 Mg Tablet PO 0.25 mg DAILY HAIDER Administration Buprenorphine/Naloxone 1 film 06/12/24 09:00 06/12/24 08:58 Buprenorphine/Naloxone 2/0.5mg Film SUBLINGUAL 1 film DAILY HAIDER Administration Fluticasone/Vilanterol 1 puff 06/12/24 08:00 06/12/24 09:46 Fluticasone/Vilanterol 100/25 Blst.W.Dev INHALE 1 puff RDAILY HAIDER Administration Lisinopril 20 mg 06/12/24 09:00 06/12/24 08:58 Lisinopril 20 Mg Tablet PO 20 mg DAILY HAIDER Administration Protocol Propranolol HCl 60 mg 06/12/24 09:00 06/12/24 09:46 Propranolol Hcl La 60 Mg Cap.Sa.24h PO 60 mg DAILY HAIDER Administration Protocol Rivaroxaban 20 mg 06/12/24 09:00 06/12/24 08:58 Rivaroxaban 20 Mg Tablet PO 20 mg DAILY HAIDER Administration Thiamine HCl 100 mg 06/12/24 14:15 06/12/24 14:21 Thiamine Hcl 100 Mg Tablet PO 100 mg DAILY HAIDER Administration Discontinued Medications Generic Name Dose Route Start Last Admin Trade Name Natalee PRN Reason Stop Dose Admin Alprazolam 0.5 mg 06/11/24 20:38 06/11/24 20:53 Alprazolam 0.5 Mg Tablet PO 06/11/24 20:39 0.5 mg ONCE ONE Administration Lisinopril 20 mg 06/12/24 03:20 06/12/24 03:27 Lisinopril 20 Mg Tablet PO 06/12/24 03:21 20 mg ONCE ONE Administration Protocol Lorazepam 2 mg 06/12/24 03:20 06/12/24 03:27 Lorazepam 1 Mg Tablet PO 06/12/24 03:21 2 mg ONCE ONE Administration Metoprolol Tartrate 50 mg 06/12/24 03:20 06/12/24 03:28 Metoprolol Tartrate 50 Mg Tablet PO 06/12/24 03:21 50 mg ONCE ONE Administration Protocol Potassium Chloride 40 meq 06/11/24 18:20 06/11/24 19:34 Potassium Chloride Packet 20 Meq Packet PO 06/11/24 18:21 40 meq ONCE ONE Administration Thiamine HCl 100 mg 06/12/24 12:50 06/12/24 14:18 Thiamine Hcl 100 Mg Tablet PO Not Given DAILY [facility] Medical Decision Making Medical Decision Making MDM Narrative: Patient is a 78-year-old female past medical history of rheumatoid arthritis paroxysmal atrial fibrillation, pacemaker, opioid use disorder, COPD, anxiety who presents to the emergency department alcohol intoxication, depression. At this time not admitting to SI/HI however there is significant family concern for recently increasing depressed state. As per HPI, she will undergo care team evaluation for appropriate disposition. Serum labs earlier this afternoon without leukocytosis or anemia. Noted to have a mild hypernatremia 147 with hypokalemia 3.2, suspect likely secondary to dehydration setting of alcohol consumption, no confusion, no notable tremors, muscle spasming, or seizure. Will encourage oral fluids, replace oral potassium. Alcohol level of 299 11:54 today. Differential Diagnosis Differential Diagnoses: The differential diagnosis associated with the presentation includes Admission/Observation Consideration of admission/observation: Escalation of care including admission/observation considered Patient is being observed in the Emergency Department for depression and anxiety. Observation time was started at 18:02 on 06/11/2024.?The patient is currently stable and non-toxic appearing. Observation is being initiated in the Emergency Department to allow time to help differentiate if the patient's depression and anxiety is due to Substance Induced Mood Disorder and Anxiety versus Major Depressive Disorder, Bipolar [place], Bipolar Depression, and Schizophrenia. The patient will receive frequent psychiatric assessments from the provider as well as from nursing staff. The patient will also be monitored for the need of PRN agitation medications such as Haldol, Ativan, and Benadryl. 06/12/2024 at 15:38: End physician observation 78-year-old female history of rheumatoid arthritis, opiate use disorder-on Suboxone, alcohol use disorder, COPD, benzodiazepine dependency being weaned off this medication who initially presented to the emergency department for alcohol toxication and depression, eloped and was then brought back on a Section 12. Alcohol level was initially 299 yesterday at 18:28 hours. Urine tox screen was positive for opiates, buprenorphine, and benzodiazepines. CBC revealed an elevated MCV of 104. Urine microscopic was negative for infection. COVID-19, influenza, RSV negative. Patient was initially evaluated by care team and by Nabila Stanford this morning and she was oriented and able to recount details. This afternoon however she has become confused, not able to identify date or year, having visual hallucinations-bugs on the floor, looking for the washing machine to wash her sheets. Patient is in early delirium tremens and will need to be admitted. I did order a CT scan of the brain which is pending. I ordered the phenobarbital protocol 10 mg per kg IM. I also ordered folic acid 1 mg IV and thiamine 500 mg orally. I did discuss the patient's presentation over tiger text with the covering hospitalist, Dr. Beebe. Observation care revealed the the patient does meet medical necessity for hospitalization. Exam at time of disposition revealed the patient was awake, alert , she was having visual hallucinations and is demonstrating bizarre behavior secondary to hallucinations ? Final disposition discussed with the patient however I do not think that she was able to comprehend reason for admission secondary to delirium tremens Patient started observation time on 06/11/2024 at 18:02 hours Patient completed observation care on 06/12/2024 at 15:38. Total time spent in observation care was 21 hours and 36 minutes Consult Healthcare Provider Management of the patient was discussed with: Behavioral Health Provider Lab Data [facility] Lab Attestation statement: I reviewed the patient's lab results. Urinalysis without evidence of infection. Urine toxicology positive for opiates, buprenorphine phone, and benzodiazepines. Although of note patient did state that she is not taking her Suboxone. 06/12/24 08:59 06/12/24 08:59 Labs: Lab Results 06/11/24 06/12/24 Range/Units 18:28 08:59 WBC 6.5 (4.8-10.8) X10*3/uL RBC 4.21 (4.20-5.50) X10*6/uL Hgb 14.9 (12.0-16.0) g/dl Hct 44.0 (37.0-47.0) % MCV 104.5 H (80.0-98.0) fL MCH 35.4 H (27.0-33.0) pg MCHC 33.9 (31.0-35.0) g/dl RDW 14.6 (11.0-16.0) % Plt Count 208 (160-400) X10*3/uL MPV 10.1 (9.4-12.3) fL Immature Gran % (Auto) 0.3 (0.0-0.4) % Neut % (Auto) 60.6 (45-73) % Lymph % (Auto) 20.1 (20-40) % [place] % (Auto) 18.1 H (2-11) % Eos % (Auto) 0.3 (0-4) % Baso % (Auto) 0.6 (0-2) % Lymph # (Auto) 1.3 (1.2-4.9) X10*3/uL [place] # (Auto) 1.2 (0.1-1.2) X10*3/uL Eos # (Auto) 0.0 (0.0-0.4) X10*3/uL Baso # (Auto) 0.0 (0.0-0.2) X10*3/uL Abs Immat Gran (auto) 0.02 (0.00-0.03) X10*3/uL Absolute Neuts (auto) 3.9 (2.0-8.3) x10*3/uL Absolute Nucleated RBC 0.000 (0.0-0.012) X10*3/uL Nucleated RBC % (auto) 0.0 (0.0-0.2) /100WBC Sodium 140 (135-145) mmol/L Potassium 4.1 D (3.3-5.1) mmol/L Chloride 100 (96-108) mmol/L Carbon Dioxide 30 H (22-29) mmol/L Anion Gap 14 (12-20) BUN 21 H (9-16) mg/dL Creatinine 0.72 (0.5-1.4) mg/dL Estim Creat Clear Calc 51.7 Estimated GFR > 60 Random Glucose 107 (60-115) mg/dL Calcium 10.1 D (8.4-10.2) mg/dL Total Bilirubin 2.7 H (0.0-1.0) mg/dL AST 50 H (5-31) U/L ALT 24 (0-31) U/L Alkaline Phosphatase 131 H (39-117) U/L Total Protein 7.6 (6.5-8.0) g/dL Albumin 4.5 (3.5-5.0) g/dL Urine Color Yellow Urine Appearance Cloudy Urine pH 5.5 (5.0-9.0) Ur Specific [place] 1.025 (1.005-1.025) Urine Protein 30 (1+) H (Neg-Trace) mg/dL Urine Glucose (UA) Negative (Negative) mg/dL Urine Ketones Trace (Negative) mg/dL Urine Blood Negative (Negative) Urine Nitrite Negative (Negative) Ur Leukocyte Esterase Trace H (Negative) Urine RBC 0-2 (0-2) /HPF Urine WBC 0-5 (0-5) /HPF Ur Squamous Epith Cells 6-10 (0-2) /HPF Urine Bacteria None Seen (None Seen) Hyaline Casts 0-2 (0-2) /LPF Urine Opiates Screen POSITIVE H (Not Detect) Ur Buprenorphine Scrn Positive H (Not Detect) ng/mL Ur Oxycodone Screen Not Detected (Not Detect) ng/mL Urine Methadone Screen Not Detected (Not Detect) ng/mL Urine Fentanyl Screen Not Detected (Not Detect) Ur Barbiturates Screen Not Detected (Not Detect) Ur Phencyclidine Scrn Not Detected (Not Detect) Ur Amphetamines Screen Not Detected (Not Detect) U Benzodiazepines Scrn POSITIVE H (Not Detect) Urine Cocaine Screen Not Detected (Not Detect) U Marijuana (THC) Screen Not Detected (Not Detect) Independent Historian Clinical information obtained from an independent historian. History obtained from or confirmed by: EMS External Record Review External record reviewed: Outpatient record Critical Care Time Critical Care Time Critical Care Time: Yes Total Critical Care Time: 45 Attestation: Critical Care: The patient was critically ill with a high probability of imminent or life threatening deterioration. I spent greater than 30 minutes of discontinuous time evaluating the patient,delivering critical care at the bedside, discussing and evaluating pertinent data with consultants. Critical care time does not include time spent performing separately billable procedures or teaching. Total time spent performing critical care was 45 minutes. Discharge Plan Discharge Clinical Impression: Alcohol withdrawal delirium, Depression, Alcohol intoxication Patient Disposition: Admitted As Inpatient Prescriptions: No Action lisinopril 20 mg tablet 20 mg PO DAILY propranolol 60 mg capsule,extended release 24 hr 60 mg PO DAILY alprazolam 0.25 mg tablet 0.25 mg PO DAILY Xarelto 20 mg tablet 20 mg PO DAILY fluticasone furoate-vilanterol [Breo Ellipta] 100-25 mcg/dose blister with device 1 ea inhalation DAILY Interventions: [place]-Suicide Risk Severity Scale Last Done: 06/12/24 05:18 Print Language: Maltese
[2024-06-11 18:20] VITALS: BP 128/86; BP 132/82; PULSE 103; PULSE 111; RESP 16; TEMP 36.6; O2SAT 91; O2SAT 94; BMI 21.0
[2024-06-11 18:37] LABS: Appearance Urine Cloudy; Color Urine Yellow; Glucose Urine UA Negative (Negative); Leukocyte Esterase Urine Trace (Negative); Nitrite Urine Negative (Negative); PH 5.5 (5.0-9.0); Specific Gravity - Urine 1.025 (1.005-1.025); UMIC TRIGGER UACC YES; Urine Blood Negative (Negative); Urine Ketones Trace mg/dL (Negative); Urine Protein 30 (1+) mg/dL (Neg-Trace)
[2024-06-11 18:39] LABS: Bacteria Urine None Seen (None Seen); Hyaline Casts Urine 0-2 /LPF (0-2); RBC Urine 0-2 /HPF (0-2); WBC Urine 0-5 /HPF (0-5)
--- NOTE | 2024-06-11 18:45 | PC.NURSE ---
DAUGHTER SOHAIL [phone]
[2024-06-11 18:52] LABS: Amphetamine Screen Urine Not Detected (Not Detect); Barbiturates, Urine Not Detected (Not Detect); Benzodiazepines Screen Urine POSITIVE (Not Detect); Buprenorphine Scr Positive (Not Detect); Cannabinoid Screen Urine Not Detected (Not Detect); Cocaine Screen Urine Not Detected (Not Detect); Fentanyl, urine Not Detected (Not Detect); Methadone Screen, Urine Not Detected (Not Detect); Opiate Screen Urine POSITIVE (Not Detect); Oxycodone Screen Urine Not Detected (Not Detect); Phencyclidine Screen Urine Not Detected (Not Detect)
[2024-06-11] MEDS: Potassium Chloride Packet 20 MEQ PACKET 40 MEQ PO (19:34)
[2024-06-11] MEDS: ALPRAZolam 0.5 MG TABLET PO (20:53)
[2024-06-11 23:49] VITALS: BP 160/109; PULSE 99; RESP 17; TEMP 36.7; O2SAT 95
[2024-06-12] VITALS (9 sets, daily range): BP systolic 142–200; BP diastolic 77–105; PULSE 70–88; RESP 16–20; TEMP 36.1–37.1; O2SAT 93–97; BMI 20.2
--- NOTE | 2024-06-12 | ECG_ITS ---
Test Reason : qtc check Blood Pressure : / mmHG Vent. Rate : 076 BPM Atrial Rate : 076 BPM P-R Int : 138 ms QRS Dur : 092 ms QT Int : 410 ms P-R-T Axes : 075 063 203 degrees QTc Int : 461 ms Normal sinus rhythm with sinus arrhythmia Left ventricular hypertrophy with repolarization abnormality ( Sokolow-Cervantes , Yuan product , Romhilt-Mendes ) Nonspecific ST abnormality Abnormal ECG When compared with ECG of 11-JUN-2024 12:33, No significant change was found Referred By: Eliazar Sanders Electronically Signed By:VINCENZO FINN
[2024-06-12] MEDS: LORazepam 1 MG TABLET 2 MG PO (03:27)
[2024-06-12] MEDS: lisinopriL 20 MG TABLET PO ×2 (03:27→08:58)
[2024-06-12] MEDS: Metoprolol Tartrate 50 MG TABLET PO (03:28)
--- NOTE | 2024-06-12 03:31 | PC.NURSE ---
Patient blood pressure 200/103, pulse 74, provider notified/ordered ativan 2 mg PO, metoprolol 50 mg, and lisinopril 20 mg po administered as ordered at 0327, pending effect, will continue to monitor
--- NOTE | 2024-06-12 06:17 | PC.NURSE ---
Patient up whole night, meds and meals compliant, no behavior and safety concerns, disposition per care team is section 12 inpatient bed search, will continue to monitor
--- NOTE | 2024-06-12 07:15 | PC.NURSE ---
Assumed care of patient at 0645, patient appears to be sleeping, respirations even and unlabored, no apparent distress noted. Continue plan of care for inpatient bedsearch
[2024-06-12] MEDS: ALPRAZolam 0.25 MG TABLET PO (08:58)
[2024-06-12] MEDS: Rivaroxaban 20 MG TABLET PO (08:58)
[2024-06-12] MEDS: Buprenorphine/Naloxone 2/0.5mg FILM 1 FILM SUBLINGUAL (08:58)
[2024-06-12 09:03] LABS: MANUAL DIFF FLAG NO
[2024-06-12 09:04] LABS: Basophils Percent Auto 0.6 % (0-2); Eosinophils Percent Auto 0.3 % (0-4); Hemoglobin 14.9 g/dl (12.0-16.0); Imm Gran Abs Auto 0.02 X10*3/uL (0.00-0.03); Imm Gran Pct Auto 0.3 % (0.0-0.4); Lymphocytes Absolute Auto 1.3 X10*3/uL (1.2-4.9); Lymphocytes Percent Auto 20.1 % (20-40); Mean Corpuscular HGB Conc 33.9 g/dl (31.0-35.0); Mean Corpuscular Hemoglobin 35.4 pg (27.0-33.0); Mean Corpuscular Volume 104.5 fL (80.0-98.0); Mean Platelet Volume 10.1 fL (9.4-12.3); Monocytes Absolute Auto 1.2 X10*3/uL (0.1-1.2); Monocytes Percent Auto 18.1 % (2-11); Neutrophils Absolute Auto 3.9 x10*3/uL (2.0-8.3); Neutrophils Percent Auto 60.6 % (45-73); Platelet Count 208 X10*3/uL (160-400); Red Blood Count 4.21 X10*6/uL (4.20-5.50); Red Cell Distribution Width 14.6 % (11.0-16.0); White Blood Count 6.5 X10*3/uL (4.8-10.8)
[2024-06-12 09:17] LABS: Alanine Aminotransferase 24 U/L (0-31); Albumin Level 4.5 g/dL (3.5-5.0); Alkaline Phosphatase 131 U/L (39-117); Anion Gap 14 (12-20); Aspartate Amino Transferase 50 U/L (5-31); Bilirubin Total 2.7 mg/dL (0.0-1.0); Blood Urea Nitrogen 21 mg/dL (9-16); Calcium 10.1 mg/dL (8.4-10.2); Carbon Dioxide 30 mmol/L (22-29); Chloride 100 mmol/L (96-108); Creatinine Clr Calc Pharmacy 51.7; Estimated Glomerular Filt Rate > 60; Glucose Random 107 mg/dL (60-115); Potassium 4.1 mmol/L (3.3-5.1); Sodium 140 mmol/L (135-145); Total Protein 7.6 g/dL (6.5-8.0)
[2024-06-12] MEDS: Fluticasone/Vilanterol 100/25 BLST.W.DEV 1 PUFF INHALE (09:46)
[2024-06-12] MEDS: Propranolol HCL LA 60 MG CAP.SA.24H PO (09:46)
[2024-06-12] MEDS: Thiamine HCL 100 MG TABLET PO (14:21)
--- NOTE | 2024-06-12 14:38 | PC.NURSE ---
Addendum entered by Benita Parra 06/12/24 14:40: Patient asking to go to the bathroom, when shown to the bathroom, pt instead walked to the laundry closet and tried opening the door. When Holger MHT inquired about what she was doing, pt stated she was looking for linens again Original Note: Patient asking this RN where she could get laundry quarters to do her linens. This RN let patient know that there is no need for that and that we can provide her with new linens if wanted. Pt making statements that lead this RN to believe she is not compeltely alert and oriented. Pt unable to explain where she is or the date
--- NOTE | 2024-06-12 15:26 | PC.NURSE ---
Pt taken to CT scan
--- NOTE | 2024-06-12 15:35 | MHC.CARE ---
LVM for daughter, Anu, requesting she call back re: the importance of getting the health care proxy invoked.
--- NOTE | 2024-06-12 15:50 | P.CNPS_ITS ---
History of Present Illness Date of Service: 06/13/2024 Chief Complaint: Alcohol withdrawal Discussed with referring provider: Yes Sources of Information: patient interviewed, chart reviewed and crisis/core team assessment reviewed HPI Narrative: Ms. Sandvoal is a 78 year-old woman with a hx of alcohol use who was brought initially on 06/12 after wellness check asked by family member. Pt apparently was found with bottle of vodka and brought to the ED. She eloped from the ED, ED attending had police bring back pt, given safety concerns. In the ED, BAL was 299. Utox positive for buprenorphine, opioids (she denies heroin use). In the ED, pt presents as pleasant. She reports she is concern about eviction notice and worried about becoming homeless. She does report using alcohol to cope with current stressors but minimizes extend of alcohol and other substance use. She denies SI/HI. She also denies depressed mood. She reports like is what you make of it, I am not suicidal. When talking about supports in terms of substance use, pt reports she would be interested in learning more about methadone and seeing if she is a good candidate, although we discussed that base on her report, current substance use is mostly alcohol and xanax. She does not want to do a residential substance use treatment program. This personal lines underwriter also talked with her about considering IOP or PHP, but pt reports that she will not go to a program daily. Despite, pt stating she would do anything, as we explored options for tx, she declined most of them except considering switch to methadone, but per pt she does not take sometimes the suboxone and denies any other opioid use. This personal lines underwriter met with pt later in the day and pt presented as more confused and disorganized. She was trying to do her bed, stating that there were bugs there last night and that she was glad she was give permission to stay. She had asked the nurses if we had laundry [facility] in [facility] and was asking for coins to wash a few things. At this point, pt presented as delirious suspect d/t alcohol withdrawal. [facility] Medical History Rheumatoid arthritis Upper respiratory tract infection Skin lesion of face Skin abscess Hospital discharge follow-up Laceration of elbow, right Contusion of elbow, right Right knee skin infection Knee pain Pacemaker Sinus pause Opioid use disorder COPD with acute exacerbation COPD (chronic obstructive pulmonary disease) Left knee pain Paroxysmal atrial fibrillation Knee pain Abdominal pain Smoker Neurodermatitis COPD exacerbation Scalp abscess Vaginal discharge Skin lesion Osteoarthritis of thoracic spine Anxiety Surgical History History of basal cell carcinoma (BCC) excision Mammogram declined History of bilateral cataract extraction History of ectopic History of hip replacement History of nasal surgery Diagnostics Vital Signs (24Hr): Vital Signs - 24 hr 06/11/24 18:20 06/11/24 23:49 06/12/24 03:19 Temperature 97.9 F 98.0 F 98.7 F Pulse Rate 103 H 99 74 Respiratory Rate 16 17 16 Blood Pressure 128/86 160/109 H 200/103 H Pulse Oximetry 91 L 95 95 Oxygen Delivery Method Room Air Room Air 06/12/24 03:27 06/12/24 03:28 06/12/24 05:20 Temperature Pulse Rate 74 71 Respiratory Rate 16 Blood Pressure 200/103 H 200/103 H 174/97 H Pulse Oximetry 97 Oxygen Delivery Method 06/12/24 09:46 06/12/24 09:46 Temperature 97.1 F Pulse Rate 86 86 Respiratory Rate 16 Blood Pressure 158/105 H 158/105 H Pulse Oximetry 97 Oxygen Delivery Method Room Air BMI result Body Mass Index 21.0 Labs 06/12/24 08:59 06/12/24 08:59 Labs: Laboratory Results - last 48 hr 06/11/24 06/12/24 18:28 08:59 WBC 6.5 RBC 4.21 Hgb 14.9 Hct 44.0 MCV 104.5 H MCH 35.4 H MCHC 33.9 RDW 14.6 Plt Count 208 MPV 10.1 Immature Gran % (Auto) 0.3 Neut % (Auto) 60.6 Lymph % (Auto) 20.1 [place] % (Auto) 18.1 H Eos % (Auto) 0.3 Baso % (Auto) 0.6 Lymph # (Auto) 1.3 [place] # (Auto) 1.2 Eos # (Auto) 0.0 Baso # (Auto) 0.0 Abs Immat Gran (auto) 0.02 Absolute Neuts (auto) 3.9 Absolute Nucleated RBC 0.000 Nucleated RBC % (auto) 0.0 Sodium 140 Potassium 4.1 D Chloride 100 Carbon Dioxide 30 H Anion Gap 14 BUN 21 H Creatinine 0.72 Estim Creat Clear Calc 51.7 Estimated GFR > 60 Random Glucose 107 Calcium 10.1 D Total Bilirubin 2.7 H AST 50 H ALT 24 Alkaline Phosphatase 131 H Total Protein 7.6 Albumin 4.5 Urine Color Yellow Urine Appearance Cloudy Urine pH 5.5 Ur Specific [place] 1.025 Urine Protein 30 (1+) H Urine Glucose (UA) Negative Urine Ketones Trace Urine Blood Negative Urine Nitrite Negative Ur Leukocyte Esterase Trace H Urine RBC 0-2 Urine WBC 0-5 Ur Squamous Epith Cells 6-10 Urine Bacteria None Seen Hyaline Casts 0-2 Urine Opiates Screen POSITIVE H Ur Buprenorphine Scrn Positive H Ur Oxycodone Screen Not Detected Urine Methadone Screen Not Detected Urine Fentanyl Screen Not Detected Ur Barbiturates Screen Not Detected Ur Phencyclidine Scrn Not Detected Ur Amphetamines Screen Not Detected U Benzodiazepines Scrn POSITIVE H Urine Cocaine Screen Not Detected U Marijuana (THC) Screen Not Detected Medications Medications Current Medications Alprazolam (Alprazolam 0.25 Mg Tablet) 0.25 mg PO DAILY [facility] Last Admin: 06/12/24 08:58 Dose: 0.25 mg Buprenorphine/Naloxone (Buprenorphine/Naloxone 2/0.5mg Film) 1 film SUBLINGUAL DAILY [facility] Last Admin: 06/12/24 08:58 Dose: 1 film Fluticasone/Vilanterol (Fluticasone/Vilanterol 100/25 Blst.W.Dev) 1 puff INHALE RDAILY [facility] Last Admin: 06/12/24 09:46 Dose: 1 puff Lisinopril (Lisinopril 20 Mg Tablet) 20 mg PO DAILY [facility]; Protocol Last Admin: 06/12/24 08:58 Dose: 20 mg Pharmacy Consult (Consult Rx Etoh Phenob Im/Po) 1 each MISCELLANE ONCE PRN; Protocol PRN Reason: Consult order Phenobarbital (Phenobarbital 15 Mg Tablet) 45 mg PO BID [facility] Stop: 06/14/24 21:01 Phenobarbital (Phenobarbital 30 Mg Tablet) 30 mg PO BID [facility] Stop: 06/16/24 21:01 Phenobarbital (Phenobarbital 15 Mg Tablet) 15 mg PO DAILY [facility] Stop: 06/18/24 09:01 Phenobarbital Sodium (Phenobarbital Sodium 130 Mg/Ml Vial Im Q3hx2) 150 mg IM Q3H [facility] Stop: 06/12/24 22:01 Propranolol HCl (Propranolol Hcl La 60 Mg Cap.Sa.24h) 60 mg PO DAILY [facility]; Protocol Last Admin: 06/12/24 09:46 Dose: 60 mg Rivaroxaban (Rivaroxaban 20 Mg Tablet) 20 mg PO DAILY [facility] Last Admin: 06/12/24 08:58 Dose: 20 mg Thiamine HCl (Thiamine Hcl 100 Mg Tablet) 100 mg PO DAILY [facility] Last Admin: 06/12/24 14:21 Dose: 100 mg Allergies Allergies Allergy/AdvReac Type Severity Reaction Status Date / Time succinylcholine Allergy Severe EXCESSIVE Verified 06/11/24 18:34 [SUCCINYLCHOLINE] PARALYSIS tramadol Allergy Intermediate diarrhea, Verified 06/11/24 18:34 upset stomach cat dander [CATS] Allergy Mild UNKNOWN Verified 06/11/24 18:34 dog dander [DOGS] Allergy Mild UNKNOWN Verified 06/11/24 18:34 pollen extracts [POLLEN] Allergy Mild UNKNOWN Verified 06/11/24 18:34 gabapentin AdvReac Mild Nausea and Verified 06/11/24 18:34 Vomiting DUST Allergy Mild UNKNOWN Uncoded 06/11/24 18:34 Assessment & Plan Assessment & Plan (1) Alcohol use disorder, moderate, dependence: Status: Acute Code(s): F10.20 - Alcohol dependence, uncomplicated (2) Alcohol withdrawal delirium: Status: Acute Code(s): F10.931 - Alcohol use, unspecified with withdrawal delirium Plan Ms. Sandoval is a 78 year-old woman with hx of alcohol use who was brought on 06/11 after wellness check, eloped from the ED, brought back by police. BAL 299. Initially presented as oriented x 3. later in the day, pt presented as increasingly more confused and delirious. Discussed with ED attending admission for phenobarb protocol for alcohol withdrawal. Total time managing care of this patient today ____ minutes.
--- NOTE | 2024-06-12 16:04 | MHC.CARE ---
Daughter will email HCP to this typewriter assembly and parts inspector, will put it in a chart.
[2024-06-12] MEDS: PHENobarbitaL sodium 130 MG/ML IM ONCE 200 MG IM (16:25)
[2024-06-12] MEDS: Thiamine HCL 100 MG TABLET 500 MG PO (16:42)
[2024-06-12] MEDS: Folic Acid 1 MG TABLET PO (16:42)
--- NOTE | 2024-06-12 16:50 | PC.NURSE ---
pt transported from the pod to the main ED at this time as pt is currently pending admission. pt alert and oriented to name, year, location but unaware on why she presents to the ED today. vss and up to date aside from being slightly hypertensive. nsr on the technology trainer - paced. pt has no complaints aside from telling this RN as well as MD that she wants to go home. pt educated that she is on a section 12 at this time and is unable to leave the ED at her leisure. updated CIWA = 4. pt placed on phenobarb protocol - first IM administered into left deltoid. pt tolerated well. medication otherwise administered per provider order. 20gIV placed in the left forearm - wrapped w/ curex gauze for safety precautions. no sob/wob noted. respirations even/unlabored. lights dimmed to prevent stimuli. 1:1 sitter present. resting in no apparent distress. pending admission at this time. plan of care ongoing. call ambrosio placed within reach.
--- NOTE | 2024-06-12 16:54 | P.HPHOSP_ITS ---
History of Present Illness Date of Service: 06/12/24 Chief Complaint: hallucination 78-year-old female history of rheumatoid arthritis, anxiety, paroxysmal atrial fibrillation on xarelto, HTN, depression opiate use disorder-on Suboxone, alcohol use disorder, COPD, benzodiazepine dependency being weaned off. She presented yesterday with alcohol intoxication level of 299 nearly 24 hours ago and depression, eloped and was brought back under Section 12. Urine tox screen was positive for opiates, buprenorphine, and benzodiazepines. UA was unremarkable for UTI. COVID-19, influenza, RSV negative. Patient was initially evaluated by care team and by Nabila Stanford NP this morning and she was oriented and able to recount details. But she has since become incresingly confused, not able to identify date or year, having visual hallucinations-bugs on the floor, looking for the washing machine to wash her sheets. A head CT is unremarkable. She is started on phenobarbital for early alcohol withd areli. Review of Systems 2 Review of Systems: confused Yes all other systems are reviewed and are negative [facility] Medical History Rheumatoid arthritis Upper respiratory tract infection Skin lesion of face Skin abscess Hospital discharge follow-up Laceration of elbow, right Contusion of elbow, right Right knee skin infection Knee pain Pacemaker Sinus pause Opioid use disorder COPD with acute exacerbation COPD (chronic obstructive pulmonary disease) Left knee pain Paroxysmal atrial fibrillation Knee pain Abdominal pain Smoker Neurodermatitis COPD exacerbation Scalp abscess Vaginal discharge Skin lesion Osteoarthritis of thoracic spine Anxiety Family History Father No problems noted. Mother No problems noted. Surgical History History of basal cell carcinoma (BCC) excision Mammogram declined History of bilateral cataract extraction History of ectopic History of hip replacement History of nasal surgery Social History Household Members: None Housing: Apartment Do you presently have visiting nurse or other home services: No Alcohol intake: current Alcohol intake frequency: 3 or more drinks per day Alcohol type: hard liquor Patient Tobacco Use Status: Former Tobacco user Tobacco use type: Cigarette Cigarettes Per Day: 6 Years Smoked: 50 Smoked in Last 30 Days: Yes e-Cigarette/Vaping Use: Never Used Patient Interested in Nicotine Replacement: Yes Patient Given Instructions on How to Stop Smoking: Yes Date Education Initiated: 06/12/24 Second Hand Smoke Exposure: Yes Use of substances other than those prescribed or required for medical reasons: No Currently Displaying Signs/Symptoms of Drug Intoxication Withdrawal: No Any prior treatment program specific to substance use: No Have you been hit, kicked, punched, or otherwise hurt by someone within the past year? If so, by whom?: No Do you feel safe in your current relationship?: Yes Is there a partner from a previous relationship who is making you feel unsafe now?: No Are you made to feel afraid or neglected: No Spiritual Healthcare Practices: none per pt [facility] Practices: none per pt Cultural Healthcare Practices: none per pt Advance Directives: No Advance Directives Information Provided: No Advance Directives on File: No Do you have a plan to hurt others: No Plan Recently lost weight without trying: No Eating poorly because of decreased appetite: No Nutrition Risks: No Nutritional Risk Patient : No : No Poor oral hygiene: Yes service: No Current occupational status: retired and disabled Cognitive needs: Yes Hearing needs: No Vision needs: No Meds Allergies Allergy/AdvReac Type Severity Reaction Status Date / Time succinylcholine Allergy Severe EXCESSIVE Verified 06/11/24 18:34 [SUCCINYLCHOLINE] PARALYSIS tramadol Allergy Intermediate diarrhea, Verified 06/11/24 18:34 upset stomach cat dander [CATS] Allergy Mild UNKNOWN Verified 06/11/24 18:34 dog dander [DOGS] Allergy Mild UNKNOWN Verified 06/11/24 18:34 pollen extracts [POLLEN] Allergy Mild UNKNOWN Verified 06/11/24 18:34 gabapentin AdvReac Mild Nausea and Verified 06/11/24 18:34 Vomiting DUST Allergy Mild UNKNOWN Uncoded 06/11/24 18:34 Active Medications: Current Medications Alprazolam (Alprazolam 0.25 Mg Tablet) 0.25 mg PO DAILY [facility] Last Admin: 06/12/24 08:58 Dose: 0.25 mg Buprenorphine/Naloxone (Buprenorphine/Naloxone 2/0.5mg Film) 1 film SUBLINGUAL DAILY [facility] Last Admin: 06/12/24 08:58 Dose: 1 film Fluticasone/Vilanterol (Fluticasone/Vilanterol 100/25 Blst.W.Dev) 1 puff INHALE RDAILY [facility] Last Admin: 06/12/24 09:46 Dose: 1 puff Lisinopril (Lisinopril 20 Mg Tablet) 20 mg PO DAILY [facility]; Protocol Last Admin: 06/12/24 08:58 Dose: 20 mg Pharmacy Consult (Consult Rx Etoh Phenob Im/Po) 1 each MISCELLANE ONCE PRN; Protocol PRN Reason: Consult order Phenobarbital (Phenobarbital 15 Mg Tablet) 45 mg PO BID [facility] Stop: 06/14/24 21:01 Phenobarbital (Phenobarbital 30 Mg Tablet) 30 mg PO BID [facility] Stop: 06/16/24 21:01 Phenobarbital (Phenobarbital 15 Mg Tablet) 15 mg PO DAILY [facility] Stop: 06/18/24 09:01 Phenobarbital Sodium (Phenobarbital Sodium 130 Mg/Ml Vial Im Q3hx2) 150 mg IM Q3H [facility] Stop: 06/12/24 22:01 Propranolol HCl (Propranolol Hcl La 60 Mg Cap.Sa.24h) 60 mg PO DAILY [facility]; Protocol Last Admin: 06/12/24 09:46 Dose: 60 mg Rivaroxaban (Rivaroxaban 20 Mg Tablet) 20 mg PO DAILY [facility] Last Admin: 06/12/24 08:58 Dose: 20 mg Thiamine HCl (Thiamine Hcl 100 Mg Tablet) 100 mg PO DAILY [facility] Last Admin: 06/12/24 14:21 Dose: 100 mg Home Medications ?Medication ?Instructions ?Recorded ?Confirmed ?Last Taken ?Type alprazolam 0.25 mg tablet 0.25 mg PO DAILY 06/11/24 06/12/24 Unknown History fluticasone furoate 100 1 inh inhalation DAILY 06/11/24 06/12/24 Unknown History mcg-vilanterol 25 mcg/dose inhalation powder (Breo Ellipta) lisinopril 20 mg tablet 20 mg PO DAILY 06/11/24 06/12/24 Unknown History propranolol 60 mg capsule,24 60 mg PO DAILY 06/11/24 06/12/24 Unknown History hr,extended release rivaroxaban 20 mg tablet (Xarelto) 20 mg PO DAILY 06/11/24 06/12/24 Unknown History buprenorphine 2 mg-naloxone 0.5 mg 1 film sublingual DAILY 06/12/24 06/12/24 Unknown History sublingual film flecainide 100 mg tablet 100 mg PO BID 06/12/24 06/12/24 Unknown History Physical Exam 2 Vital Signs and Narrative: Vital Signs: Last Vital Signs Temp 98.7 F 06/12/24 16:41 Pulse 76 06/12/24 16:41 Resp 16 06/12/24 16:41 BP 146/98 H 06/12/24 16:41 Pulse Ox 94 06/12/24 16:41 O2 Del Method Room Air 06/12/24 16:41 BMI result Body Mass Index 21.0 Constitutional: Alert, in no distress, overweight. Mental Status: Oriented to person, place and time. Eyes: Pupils are equal, round and reactive to light. Ear, Nose and Throat: Oropharynx clear, mucous membranes moist. Ears and nose without eformities. Trachea midline. Respiratory: Clear to auscultation. No wheezing, rales or rhonchi. Cardiovascular: S1 S2 regular. No murmurs, rubs or gallops. Gastrointestinal: Abdomen soft, non-tender, non-distended. Normal bowel sounds.? Neurologic: Cranial nerves II-XII grossly intact. No focal neurological deficits. Moves all extremities spontaneously.? Skin: No rashes or lesions.? Musculoskeletal: No cyanosis or clubbing. Psychiatric: Normal mood and affect? Results Labs 06/12/24 08:59 06/12/24 08:59 Labs: Laboratory Results - last 24 hr 06/11/24 06/12/24 18:28 08:59 MCV 104.5 H MCH 35.4 H MCHC 33.9 RDW 14.6 Plt Count 208 MPV 10.1 Immature Gran % (Auto) 0.3 Neut % (Auto) 60.6 Lymph % (Auto) 20.1 [place] % (Auto) 18.1 H Eos % (Auto) 0.3 Baso % (Auto) 0.6 Lymph # (Auto) 1.3 [place] # (Auto) 1.2 Eos # (Auto) 0.0 Baso # (Auto) 0.0 Abs Immat Gran (auto) 0.02 Absolute Neuts (auto) 3.9 Absolute Nucleated RBC 0.000 Nucleated RBC % (auto) 0.0 Anion Gap 14 Estim Creat Clear Calc 51.7 Estimated GFR > 60 Random Glucose 107 Calcium 10.1 D Total Bilirubin 2.7 H AST 50 H ALT 24 Alkaline Phosphatase 131 H Total Protein 7.6 Albumin 4.5 Urine Color Yellow Urine Appearance Cloudy Urine pH 5.5 Ur Specific [place] 1.025 Urine Protein 30 (1+) H Urine Glucose (UA) Negative Urine Ketones Trace Urine Blood Negative Urine Nitrite Negative Ur Leukocyte Esterase Trace H Urine RBC 0-2 Urine WBC 0-5 Ur Squamous Epith Cells 6-10 Urine Bacteria None Seen Hyaline Casts 0-2 Urine Opiates Screen POSITIVE H Ur Buprenorphine Scrn Positive H Ur Oxycodone Screen Not Detected Urine Methadone Screen Not Detected Urine Fentanyl Screen Not Detected Ur Barbiturates Screen Not Detected Ur Phencyclidine Scrn Not Detected Ur Amphetamines Screen Not Detected U Benzodiazepines Scrn POSITIVE H Urine Cocaine Screen Not Detected U Marijuana (THC) Screen Not Detected Imaging Radiologist's Impressions: Impressions Head CT 06/12/24 15:25 IMPRESSION: No acute intracranial pathology. Electronically signed by: Antoine Talavera MD 06/12/2024 04:15 PM EDT RP Assessment and Plan (1) Alcohol withdrawal delirium: Status: Acute Plan 78-year-old female history of rheumatoid arthritis, anxiety, paroxysmal atrial fibrillation, HTN, depression opiate use disorder-on Suboxone, alcohol use disorder, COPD, benzodiazepine dependency being weaned off being admitted for alcohol withdrawal. Alcohol withdrawal with hallucination -continue phenobarbtal -thiamine and folate supplement -addiction med Depression -psych consult PAF--rate controled -flecainide -xarelto Opioid dependence -Suboxone HTN -Lisinopril Macrocytosis -B12 and folate pending DVT prophylaxis--xarelto full code at least 2 midnights admit for management of alcohol withdrawal Quality Stroke Does the patient have a stroke diagnosis?: No VTE Prior VTE?: No VTE Risk Level:: Medical - moderate - high VTE Device Contraindication: Treatment Not Indicated VTE Drug Contraindication: N/A - Med Ordered
[2024-06-12 17:31] LABS: Folate 5.7 ng/mL (> or = 4.0); Vitamin B12 355 pg/mL (200-900)
--- NOTE | 2024-06-12 18:04 | PHA.MEDREC ---
Addendum entered by Phong Wu, [facility] 06/14/24 16:08: In regards to the alprazolam Dr. Sanders spoke to patient. Daughter was going by what patient was telling her, I told her she got 90 tabs for 30 supply and she run out, it means she was taking it on average more than 3 times a day . Med rec was changed to TID. Addendum entered by Miguel Hernandez, [facility] 06/12/24 18:18: med rec verified Original Note: Pharmacy Consult ? Medication Reconciliation Pharmacy has completed the medication reconciliation. Called patient daughter who was able to confirm a Alprazolam 0.25mg tab once daily, Flecanide 100mg BID and her Breo Ellipta inhailer once daily. Her dauhgter was confused with the rest and got disoriented and was not sure about the others or when her mom took then last but she told me she just picked up some medications from [facility] pharmacy last week and to give them a call and they should have the rest. I called [facility] and they were able to confirm the Lisinopril 20mg daily, Propanolol 60mg daily and Xalrelto 20mg daily.
[2024-06-12] MEDS: PHENobarbitaL sodium 130 MG/ML VIAL IM Q3Hx2 150 MG IM ×2 (20:12→23:19)
[2024-06-12] MEDS: ALPRAZolam 0.5 MG TABLET PO (20:36)
[2024-06-12] MEDS: Flecainide Acetate 50 MG TABLET 100 MG PO ×2 (20:37→23:19)
[2024-06-12] MEDS: 0.9 % Sodium Chloride Flush 3 ML SYRINGE IVFLUSH (23:34)
[2024-06-13 03:23] VITALS: BP 142/81; PULSE 62; RESP 18; TEMP 36; O2SAT 92
[2024-06-13 07:19] VITALS: BP 142/82; PULSE 73; RESP 17; TEMP 36.4; O2SAT 93
[2024-06-13] MEDS: Folic Acid 1 MG TABLET PO (08:47)
[2024-06-13] MEDS: PHENobarbitaL 15 MG TABLET 45 MG PO ×2 (08:48→20:16)
[2024-06-13] MEDS: ALPRAZolam 0.25 MG TABLET PO ×2 (08:49→20:16)
[2024-06-13] MEDS: Rivaroxaban 20 MG TABLET PO (08:49)
[2024-06-13] MEDS: Thiamine HCL 100 MG TABLET PO (08:49)
[2024-06-13] MEDS: lisinopriL 20 MG TABLET PO (08:49)
[2024-06-13] MEDS: 0.9 % Sodium Chloride Flush 3 ML SYRINGE IVFLUSH (08:50)
[2024-06-13] MEDS: Calcium Carbonate 750 MG TAB.CHEW PO (08:50)
[2024-06-13] MEDS: Propranolol HCL LA 60 MG CAP.SA.24H PO (08:50)
--- NOTE | 2024-06-13 12:47 | MHC.RECOVRN ---
Met with pt in 472 after consult to Addiction Medicine for alcohol use and opioid dependence. Pt currently admitted for alcohol withdrawal. Pt sitting in bed, awake, alert, difficult to engage in conversation, guarded. Pt reports alcohol use, a few nips vodka x 1 week. Pt reports she was served with an eviction notice approx one week ago which has caused her stress and to begin drinking. Pt anxious to return home to deal with it. Pt does not elaborate further on alcohol use. Pt currently a pt of the [facility], prescribed Suboxone 2 mg. Pt reports she had been taking 1/2 film but stopped taking it approx 2 weeks ago. Attempted to ask pt how she has been feeling since stopping Suboxone, pt unable to verbalize how she feels. Attempted to discuss recovery resources and supports, pt states I don't like being told what to do. Assured pt this is strictly informational. Pt was accepting of written resources as well as t/w contact information if needed. Denies questions or concerns for t/w. Discussed with Carmen Johnson APRN.
--- NOTE | 2024-06-13 13:37 | MHC.CM.PN ---
Addendum entered by Lorene Gonzalez RN 06/13/24 13:58: CM RECEIVED CALL FROM [facility] LIAISON WHO REPORTS PT HAS A GERIATRIC SUPPORT ARMHOLE BASTER JUMPBASTING THROUGH HER INSURANCE [employer]GARDO YUAN, WHOSE BOSS'S NAME IS LUPE AND AN SECOND HELPER. PT ALSO HAS AN ELDER AT [employer] INVOLVED AND IS OFFICER [facility] [phone] [id number]. EC LIAISON DID GIVE PT SOME TASKS TO COMPLETE SHE NEEDS TO ADVOCATE FOR HERSELF AND SHE WILL NEED TO CONTACT [employer] DET[employer] AND HER SECOND HELPER DENZEL. Original Note: IMM 06/13/24, EMR REVIEWED, PT ADMITTED W/ETOH WITHDRAWAL, CM MET W/PT WHO IS A&OX3, PT REPORTS SHE LIVES ALONE, IS INDEP W/CARE, HAS A CANE THAT SHE KEEPS IN HER CAR AND RARELY USES, PT DENIES HAVING ANY HOME SERVICES AND IS REQUESTING TO DC ARTURO D/T RECEIVING NOTICE SHE IS BEING EVICTED DUE TO SMOKING, PT'S THRIVE ASSESSMENT + HOWEVER PT DECLINED [employer] HOWEVER WAS OPEN TO TASK TO [facility] FOR ASSISTANCE/OPTIONS REGARDING EVICTION/HOUSING, EC LIAISON TO MEET W/PT TODAY. PT VERFIFIES PCP IS JOE SINGH, PT HAS BEEN EDUCATED ON AND DECLINED TO COMPLETE A HCP AND DOES NOT WANT CM TO CONTACT HER DTR SOHAIL. PT WILL LIKELY NEED CARE TEAM CLEARANCE PRIOR TO DC, PT HAS BEEN SEEN BY RECOVERY NURSE
--- NOTE | 2024-06-13 14:16 | P.PNADD_ITS ---
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 Reluctant to discuss alcohol use and focused on her daughter and how upset she is with her. She reports that she does not plan on returning to drinking alcohol, but also says she is an adult and if she wants to drink she can. She states that she was due to receiving a letter that she was being evicted from her apt., so she started drinking. Unable to understand concern from family and medical providers Briefly discussed suboxone. She stated she is not taking it because it gives her a rash, however she has been receiving it in the hospital. She is anxious to be discharged and take care of her eviciton Review of Systems Constitutional: Reports as per HPI and Reports no additional constitutional complaints Mental Status Exam Mental Status Exam Patient Appearance: Appropriate Level of Consciousness: Awake, Appropriate and Alert Patient Behavior: Talkative Speech Pattern: Clear Thought Content: positive for Circumstantial and positive for Perseveration Diagnostics Vital Signs (24Hr): Vital Signs - 24 hr 06/12/24 16:41 06/12/24 18:58 06/12/24 20:13 Temperature 98.7 F 98.6 F 98.7 F Pulse Rate 76 75 88 Respiratory Rate 16 19 20 Blood Pressure 146/98 H 142/91 H 155/98 H Pulse Oximetry 94 93 97 Oxygen Delivery Method Room Air Room Air Room Air 06/12/24 22:41 06/13/24 03:23 06/13/24 07:19 Temperature 96.9 F 96.8 F 97.6 F Pulse Rate 70 62 73 Respiratory Rate 18 18 17 Blood Pressure 149/77 H 142/81 H 142/82 H Pulse Oximetry 93 92 93 Oxygen Delivery Method Room Air Room Air Room Air BMI result Body Mass Index 20.2 Labs 06/12/24 08:59 06/12/24 08:59 Labs: Laboratory Results - last 48 hr 06/11/24 06/12/24 06/12/24 18:28 08:59 16:40 WBC 6.5 RBC 4.21 Hgb 14.9 Hct 44.0 MCV 104.5 H MCH 35.4 H MCHC 33.9 RDW 14.6 Plt Count 208 MPV 10.1 Immature Gran % (Auto) 0.3 Neut % (Auto) 60.6 Lymph % (Auto) 20.1 Pitkin % (Auto) 18.1 H Eos % (Auto) 0.3 Baso % (Auto) 0.6 Lymph # (Auto) 1.3 [place]kin # (Auto) 1.2 Eos # (Auto) 0.0 Baso # (Auto) 0.0 Abs Immat Gran (auto) 0.02 Absolute Neuts (auto) 3.9 Absolute Nucleated RBC 0.000 Nucleated RBC % (auto) 0.0 Sodium 140 Potassium 4.1 D Chloride 100 Carbon Dioxide 30 H Anion Gap 14 BUN 21 H Creatinine 0.72 Estim Creat Clear Calc 51.7 Estimated GFR > 60 Random Glucose 107 Calcium 10.1 D Total Bilirubin 2.7 H AST 50 H ALT 24 Alkaline Phosphatase 131 H Total Protein 7.6 Albumin 4.5 Vitamin B12 355 Folate 5.7 Urine Color Yellow Urine Appearance Cloudy Urine pH 5.5 Ur Specific [place] 1.025 Urine Protein 30 (1+) H Urine Glucose (UA) Negative Urine Ketones Trace Urine Blood Negative Urine Nitrite Negative Ur Leukocyte Esterase Trace H Urine RBC 0-2 Urine WBC 0-5 Ur Squamous Epith Cells 6-10 Urine Bacteria None Seen Hyaline Casts 0-2 Urine Opiates Screen POSITIVE H Ur Buprenorphine Scrn Positive H Ur Oxycodone Screen Not Detected Urine Methadone Screen Not Detected Urine Fentanyl Screen Not Detected Ur Barbiturates Screen Not Detected Ur Phencyclidine Scrn Not Detected Ur Amphetamines Screen Not Detected U Benzodiazepines Scrn POSITIVE H Urine Cocaine Screen Not Detected U Marijuana (THC) Screen Not Detected Imaging Radiology Impressions: ITS Impressions Head CT 06/12/24 15:25 IMPRESSION: No acute intracranial pathology. Electronically signed by: Antoine Talavera MD 06/12/2024 04:15 PM EDT Medications Medications Current Medications Acetaminophen (Acetaminophen 325 Mg Tablet) 650 mg PO Q6H PRN PRN Reason: Pain, Mild (Pain Scale 1-3), fever or headache Alprazolam (Alprazolam 0.25 Mg Tablet) 0.25 mg PO DAILY [facility] Last Admin: 06/13/24 08:49 Dose: 0.25 mg Buprenorphine/Naloxone (Buprenorphine/Naloxone 2/0.5mg Film) 1 film SUBLINGUAL DAILY [facility] Last Admin: 06/13/24 09:00 Dose: Not Given Calcium Carbonate (Calcium Carbonate 750 Mg Tab.Chew) 750 mg PO Q4H PRN PRN Reason: Heartburn Last Admin: 06/13/24 08:50 Dose: 750 mg Flecainide Acetate (Flecainide Acetate 50 Mg Tablet) 100 mg PO BID [facility] Last Admin: 06/12/24 23:19 Dose: 100 mg Fluticasone/Vilanterol (Fluticasone/Vilanterol 100/25 Blst.W.Dev) 1 puff INHALE RDAILY [facility] Last Admin: 06/13/24 08:26 Dose: Not Given Folic Acid (Folic Acid 1 Mg Tablet) 1 mg PO DAILY [facility] Stop: 06/15/24 09:01 Last Admin: 06/13/24 08:47 Dose: 1 mg Hydroxyzine HCl (Hydroxyzine Hcl 10 Mg Tablet) 10 mg PO Q6H PRN PRN Reason: anxiety/restlessness Lisinopril (Lisinopril 20 Mg Tablet) 20 mg PO DAILY [facility]; Protocol Last Admin: 06/13/24 08:49 Dose: 20 mg Magnesium Hydroxide (Milk Of Magnesia 30 Ml Oral.Susp) 30 ml PO DAILY PRN PRN Reason: Constipation Melatonin (Melatonin 3 Mg Tablet) 6 mg PO BEDTIME PRN PRN Reason: Insomnia Pharmacy Consult (Consult Rx Etoh Phenob Im/Po) 1 each MISCELLANE ONCE PRN; Protocol PRN Reason: Consult order Phenobarbital (Phenobarbital 15 Mg Tablet) 45 mg PO BID [facility] Stop: 06/14/24 21:01 Last Admin: 06/13/24 08:48 Dose: 45 mg Phenobarbital (Phenobarbital 30 Mg Tablet) 30 mg PO BID [facility] Stop: 06/16/24 21:01 Phenobarbital (Phenobarbital 15 Mg Tablet) 15 mg PO DAILY [facility] Stop: 06/18/24 09:01 Propranolol HCl (Propranolol Hcl La 60 Mg Cap.Sa.24h) 60 mg PO DAILY [facility]; Protocol Last Admin: 06/13/24 08:50 Dose: 60 mg Rivaroxaban (Rivaroxaban 20 Mg Tablet) 20 mg PO DAILY [facility] Last Admin: 06/13/24 08:49 Dose: 20 mg Sodium Chloride (0.9 % Sodium Chloride Flush 3 Ml Syringe) 3 ml IVFLUSH QSHIFT [facility] Last Admin: 06/13/24 08:50 Dose: 3 ml Thiamine HCl (Thiamine Hcl 100 Mg Tablet) 100 mg PO DAILY [facility] Last Admin: 06/13/24 08:49 Dose: 100 mg Allergies Allergies Allergy/AdvReac Type Severity Reaction Status Date / Time succinylcholine Allergy Severe EXCESSIVE Verified 06/11/24 18:34 [SUCCINYLCHOLINE] PARALYSIS tramadol Allergy Intermediate diarrhea, Verified 06/11/24 18:34 upset stomach cat dander [CATS] Allergy Mild UNKNOWN Verified 06/11/24 18:34 dog dander [DOGS] Allergy Mild UNKNOWN Verified 06/11/24 18:34 pollen extracts [POLLEN] Allergy Mild UNKNOWN Verified 06/11/24 18:34 gabapentin AdvReac Mild Nausea and Verified 06/11/24 18:34 Vomiting DUST Allergy Mild UNKNOWN Uncoded 06/11/24 18:34 Assessment & Plan Assessment & Plan (1) Alcohol use disorder, moderate, dependence: Status: Acute Code(s): F10.20 - Alcohol dependence, uncomplicated Assessment and Plan: * patient with limited insight related to alcohol use and how this brought her to be admitted * declines any referrals related to alcohol use * limited social supports as she is currently unhappy with her daughter and does not wish to involve her in any of her care Total time managing care of this patient today __30__ minutes.
[2024-06-13 15:14] VITALS: BP 139/68; PULSE 75; RESP 18; TEMP 37.3; O2SAT 96
--- NOTE | 2024-06-13 17:45 | HO.PM.IMPN ---
Subjective Subjective Date of Service: 06/13/24 Interval History: lucid, no sings of alcohol withdrawal Review of Systems no confusion Physical Exam Vital Signs: Vital Signs: Last Vital Signs Temp 99.1 F 06/13/24 15:14 Pulse 75 06/13/24 15:14 Resp 18 06/13/24 15:14 BP 139/68 06/13/24 15:14 Pulse Ox 96 06/13/24 15:14 O2 Del Method Room Air 06/13/24 15:14 BMI result Body Mass Index 20.2 Const: Other: General: AO X 3, no acute distress Resp: CTA bilateral CVS: S1,S2,RRR GI: +BS, NT, no distention Skin: No rash Neuro: motor grossly intact Psych: appropriate affect Objective Data Active Medications Acetaminophen (Acetaminophen 325 Mg Tablet) 650 mg PO Q6H PRN PRN Reason: Pain, Mild (Pain Scale 1-3), fever or headache Alprazolam (Alprazolam 0.25 Mg Tablet) 0.25 mg PO DAILY [facility] Last Admin: 06/13/24 08:49 Dose: 0.25 mg Documented By: GOVIND Buprenorphine/Naloxone (Buprenorphine/Naloxone 2/0.5mg Film) 1 film SUBLINGUAL DAILY [facility] Last Admin: 06/13/24 09:00 Dose: Not Given Documented By: GOVIND Non-Admin Reason: Patient Refused Calcium Carbonate (Calcium Carbonate 750 Mg Tab.Chew) 750 mg PO Q4H PRN PRN Reason: Heartburn Last Admin: 06/13/24 08:50 Dose: 750 mg Documented By: GOVIND Flecainide Acetate (Flecainide Acetate 50 Mg Tablet) 100 mg PO BID [facility] Last Admin: 06/12/24 23:19 Dose: 100 mg Documented By: NARCISO Fluticasone/Vilanterol (Fluticasone/Vilanterol 100/25 Blst.W.Dev) 1 puff INHALE RDAILY [facility] Last Admin: 06/13/24 08:26 Dose: Not Given Documented By: SHAHID Non-Admin Reason: Patient Asleep Folic Acid (Folic Acid 1 Mg Tablet) 1 mg PO DAILY [facility] Stop: 06/15/24 09:01 Last Admin: 06/13/24 08:47 Dose: 1 mg Documented By: GOVIND Hydroxyzine HCl (Hydroxyzine Hcl 10 Mg Tablet) 10 mg PO Q6H PRN PRN Reason: anxiety/restlessness Lisinopril (Lisinopril 20 Mg Tablet) 20 mg PO DAILY [facility]; Protocol Last Admin: 06/13/24 08:49 Dose: 20 mg Documented By: GOVIND Magnesium Hydroxide (Milk Of Magnesia 30 Ml Oral.Susp) 30 ml PO DAILY PRN PRN Reason: Constipation Melatonin (Melatonin 3 Mg Tablet) 6 mg PO BEDTIME PRN PRN Reason: Insomnia Pharmacy Consult (Consult Rx Etoh Phenob Im/Po) 1 each MISCELLANE ONCE PRN; Protocol PRN Reason: Consult order Phenobarbital (Phenobarbital 15 Mg Tablet) 45 mg PO BID [facility] Stop: 06/14/24 21:01 Last Admin: 06/13/24 08:48 Dose: 45 mg Documented By: GOVIND Phenobarbital (Phenobarbital 30 Mg Tablet) 30 mg PO BID [facility] Stop: 06/16/24 21:01 Phenobarbital (Phenobarbital 15 Mg Tablet) 15 mg PO DAILY [facility] Stop: 06/18/24 09:01 Propranolol HCl (Propranolol Hcl La 60 Mg Cap.Sa.24h) 60 mg PO DAILY [facility]; Protocol Last Admin: 06/13/24 08:50 Dose: 60 mg Documented By: GOVIND Rivaroxaban (Rivaroxaban 20 Mg Tablet) 20 mg PO DAILY [facility] Last Admin: 06/13/24 08:49 Dose: 20 mg Documented By: GOVIND Sodium Chloride (0.9 % Sodium Chloride Flush 3 Ml Syringe) 3 ml IVFLUSH QSHIFT [facility] Last Admin: 06/13/24 08:50 Dose: 3 ml Documented By: GOIVND Thiamine HCl (Thiamine Hcl 100 Mg Tablet) 100 mg PO DAILY [facility] Last Admin: 06/13/24 08:49 Dose: 100 mg Documented By: GOVIND Labs 06/12/24 08:59 06/12/24 08:59 Assessment and Plan (1) Alcohol withdrawal delirium: Status: Acute Plan 78-year-old female history of rheumatoid arthritis, anxiety, paroxysmal atrial fibrillation, HTN, depression opiate use disorder-on Suboxone, alcohol use disorder, COPD, benzodiazepine dependency being weaned off being admitted for alcohol withdrawal. Alcohol withdrawal with hallucination---doing better -continue phenobarbtal -thiamine and folate supplement -addiction saw, [place] and gave her resources Depression -psych following PAF--rate controled -flecainide -xarelto Opioid dependence -Suboxone HTN -Lisinopril Macrocytosis -B12 and folate pending DVT prophylaxis--xarelto full code inpt: alcohol withdrawal treatment Quality Stroke Does the patient have a stroke diagnosis?: No VTE Prior VTE?: No VTE Risk Level:: Medical - moderate - high VTE Device Contraindication: Treatment Not Indicated VTE Drug Contraindication: N/A - Med Ordered
[2024-06-13] MEDS: hydrOXYzine HCL 10 MG TABLET PO (17:51)
[2024-06-13 19:38] VITALS: BP 164/88; PULSE 69; RESP 18; TEMP 35.5; O2SAT 96
[2024-06-13] MEDS: Flecainide Acetate 50 MG TABLET 100 MG PO (20:16)
[2024-06-13] MEDS: Melatonin 3 MG TABLET 6 MG PO (23:46)
[2024-06-14 03:53] VITALS: BP 147/70; PULSE 65; RESP 18; TEMP 36.3
[2024-06-14] MEDS: hydrOXYzine HCL 10 MG TABLET PO (04:27)
[2024-06-14 07:53] VITALS: BP 152/85; PULSE 74; RESP 18; TEMP 36.4; O2SAT 96
[2024-06-14] MEDS: PHENobarbitaL 15 MG TABLET 45 MG PO (08:28)
[2024-06-14] MEDS: Flecainide Acetate 50 MG TABLET 100 MG PO (08:28)
[2024-06-14] MEDS: Propranolol HCL LA 60 MG CAP.SA.24H PO (08:28)
[2024-06-14] MEDS: lisinopriL 20 MG TABLET PO (08:28)
[2024-06-14] MEDS: Buprenorphine/Naloxone 2/0.5mg FILM 1 FILM SUBLINGUAL (08:28)
[2024-06-14] MEDS: Rivaroxaban 20 MG TABLET PO (08:29)
[2024-06-14] MEDS: Thiamine HCL 100 MG TABLET PO (08:29)
[2024-06-14] MEDS: Acetaminophen 325 MG TABLET 650 MG PO (08:29)
[2024-06-14] MEDS: ALPRAZolam 0.25 MG TABLET PO (08:29)
[2024-06-14] MEDS: Folic Acid 1 MG TABLET PO (08:29)
[2024-06-14] MEDS: 0.9 % Sodium Chloride Flush 3 ML SYRINGE IVFLUSH (08:32)
--- NOTE | 2024-06-14 11:03 | MHC.CARE ---
Pt does not IPLOC at this time and will be discharged home to follow up with current providers.
[2024-06-14] MEDS: Fluticasone/Vilanterol 100/25 BLST.W.DEV 1 PUFF INHALE (11:38)
[2024-06-14 11:40] VITALS: PULSE 76; RESP 16; O2SAT 96
--- NOTE | 2024-06-14 11:43 | MHC.CM.PN ---
CM RECEIVED EMAIL FROM PT'S DTR SOHAIL THAT WAS FORWARDED FROM CARE TEAM REQUESTING LETTER TO SEND TO HOUSING ([facility]), LETTER COMPLETED BY CM ORTHOTICS PROSTHETICS ASSISTANT AND PT AGREEABLE FOR CM TO EMAIL COPY BACK TO SOHAIL, PT WAS GIVEN HARD COPY. PT CLEARED FOR DC HOME BY CARE TEAM, PT DECLINING ANY REFERRALS FROM RECOVERY TEAM, CM WILL UPDATE RECOVERY TEAM ON DC.
--- NOTE | 2024-06-14 11:48 | MHC.CM.PN ---
ANTIC PT WILL BE MEDICALLY CLEARED FOR DC HOME SELF CARE, PER CARE TEAM PT WILL FOLLOW-UP W/OUTPT PROVIDERS, PT CURRENTLY AWAITING DTR SOHAIL TO ARRIVE.
--- NOTE | 2024-06-14 12:16 | P.DS_ITS ---
DS: Providers Provider Date of Service: 06/14/24 Date of admission: 06/12/24 17:15 Primary care physician: Fany Meza MD Consults: 06/11/24 18:02 Consult to Care Team Stat Comment: Reason for consultation: depression 06/12/24 17:15 Consult to Psychiatry Routine Consulting Provider: Psych Covering Reason for consultation: depression Has provider been notified: No 06/12/24 18:18 Addiction Medicine Routine Consulting Provider: Addiction Covering Reason for consultation: opioid dependence 06/13/24 11:00 Addiction Medicine Routine Consulting Provider: Addiction Covering Reason for consultation: alcohol and opioid dependence Has provider been notified: No 06/14/24 10:09 Consult to Care Team Routine Comment: Reason for consultation: ? need for psych admit, ? psychosis earlier DS: Diagnosis Discharge Diagnosis (1) Alcohol use disorder, moderate, dependence: Status: Acute DS: Summary Hospital Course Hospital Course: admission h & p Chief Complaint: hallucination 78-year-old female history of rheumatoid arthritis, anxiety, paroxysmal atrial fibrillation on xarelto, HTN, depression opiate use disorder-on Suboxone, alcohol use disorder, COPD, benzodiazepine dependency being weaned off. She presented yesterday with alcohol intoxication level of 299 nearly 24 hours ago and depression, eloped and was brought back under [place]. Urine tox screen was positive for opiates, buprenorphine, and benzodiazepines. UA was unremarkable for UTI. COVID-19, influenza, RSV negative. Patient was initially evaluated by care team and by Nabila Stanford NP this morning and she was oriented and able to recount details. But she has since become incresingly confused, not able to identify date or year, having visual hallucinations-bugs on the floor, looking for the washing machine to wash her sheets. A head CT is unremarkable. She is started on phenobarbital for early alcohol withd areli. Hospital course: Alcohol withdrawal with hallucination---doing better -continue phenobarbtal -thiamine and folate supplement -addiction saw, [place] and gave her resources Depression -psych following PAF--rate controled -flecainide -xarelto Opioid dependence -Suboxone HTN -Lisinopril Macrocytosis -B12 and folate pending Time Attestation Discharge Coordination Time (in mins): 35 Quality: Safe Use of Opioids Does Pt have an Active Cancer Diagnosis on the Problem List?: No Quality: Stroke Does the patient have a stroke diagnosis?: No Physical Exam Vital Signs: Vital Signs: Last Vital Signs Temp 97.6 F 06/14/24 07:53 Pulse 76 06/14/24 11:40 Resp 16 06/14/24 11:40 BP 152/85 H 06/14/24 07:53 Pulse Ox 96 06/14/24 07:53 O2 Del Method Room Air 06/14/24 07:53 BMI result Body Mass Index 20.2 Const: Other: General: AO X 3, no acute distress Resp: CTA bilateral CVS: S1,S2,RRR GI: +BS, NT, no distention Skin: No rash Neuro: motor grossly intact Psych: appropriate affect Discharge Plan Discharge Anticipated Discharge Date/Time: 06/14/24 12:36 Patient Disposition: Home, Self-Care Discharge Diagnosis: Alcohol dependency, alcohol withdrawal, depression Referrals: Fany Bobby MD [Primary Care Provider] - 1 Week Discharge Medications: Continued lisinopril 20 mg tablet 20 mg PO DAILY propranolol 60 mg capsule,extended release 24 hr 60 mg PO DAILY alprazolam 0.25 mg tablet 0.25 mg PO DAILY Xarelto 20 mg tablet 20 mg PO DAILY fluticasone furoate-vilanterol [Breo Ellipta] 100-25 mcg/dose blister with device 1 inh inhalation DAILY flecainide 100 mg tablet 100 mg PO BID buprenorphine-naloxone 2-0.5 mg film 1 film sublingual DAILY Diet: Advance to usual diet Activity on Discharge: As tolerated Stand Alone Forms: Patient Portal Discharge page Print Language: Maldivian Care Plan Goals: recovery Health Concerns: alcohol dependency alcohol withdrawal Plan of Treatment: follow through the resources given to you by addiction med service avoid alcohol and stay sobber Assessment: see above
== END 2024-06-14 17:35 | disposition home or self-care (01) | DRG 897 ==
LOC: HO.ED 06-12 16:12 → HO.EDOVER 06-12 17:29 → HO.IMC 06-12 20:32
PROVIDERS: Internal Medicine; Nurse Practitioner Family; Social Worker; Admitting Provider Internal Medicine; Emergency Provider Emergency Medicine Emergency Medical Services; PCP Internal Medicine; Visit Provider Internal Medicine
DX: F10.221 Alcohol dependence with intoxication delirium (principal); F11.20 Opioid dependence, uncomplicated; F13.20 Sedative, hypnotic or anxiolytic dependence, uncomplicated; M06.9 Rheumatoid arthritis, unspecified; F10.231 Alcohol dependence with withdrawal delirium; F32.A Depression, unspecified; I48.0 Paroxysmal atrial fibrillation; I10 Essential (primary) hypertension; D75.89 Other specified diseases of blood and blood-forming organs; Y90.8 Blood alcohol level of 240 mg/100 ml or more; Z95.0 Presence of cardiac pacemaker; Z87.891 Personal history of nicotine dependence; Z79.01 Long term (current) use of anticoagulants; Z79.899 Other long term (current) drug therapy
CPT/HCPCS: 36415; 70450; 80053; 80307; 81001; 82607; 82746; 85025; 93005; 99285; J2560; S9485

== ENCOUNTER → 2024-06-12 17:15 | Outpatient (BNV) | payer OTHER, SELFPAY | PROVIDERS: Admitting Provider Internal Medicine; Emergency Provider Emergency Medicine Emergency Medical Services; Visit Provider Internal Medicine | DX: F10.239 Alcohol dependence with withdrawal, unspecified (principal) | CPT/HCPCS: 99223; 99232; 99239 ==

== ENCOUNTER → 2024-06-12 17:15 | Outpatient (BNV) | payer OTHER, SELFPAY | PROVIDERS: Admitting Provider Internal Medicine; Emergency Provider Emergency Medicine Emergency Medical Services; Visit Provider Nurse Practitioner Psychiatric/Mental Health | DX: F10.20 Alcohol dependence, uncomplicated (principal) | CPT/HCPCS: 99231 ==

== ENCOUNTER → 2024-06-12 17:15 | Outpatient (BNV) | payer OTHER, SELFPAY | PROVIDERS: Admitting Provider Internal Medicine; Emergency Provider Emergency Medicine Emergency Medical Services; Visit Provider Psychiatry & Neurology Psychiatry | DX: F10.20 Alcohol dependence, uncomplicated (principal); F10.931 Alcohol use, unspecified with withdrawal delirium | CPT/HCPCS: 99284 ==

== ENCOUNTER → 2024-06-25 23:59 | Outpatient (BNV) | payer OTHER, SELFPAY ==
--- NOTE | 2024-06-27 15:33 | A.OFFVIS_ITS ---
Intake Visit Reasons: Remote Device Check- Medtronic Allergies succinylcholine [SUCCINYLCHOLINE] Allergy (Severe, Verified 06/11/24 18:34) EXCESSIVE PARALYSIS tramadol Allergy (Intermediate, Verified 06/11/24 18:34) diarrhea, upset stomach cat dander [CATS] Allergy (Mild, Verified 06/11/24 18:34) UNKNOWN dog dander [DOGS] Allergy (Mild, Verified 06/11/24 18:34) UNKNOWN pollen extracts [POLLEN] Allergy (Mild, Verified 06/11/24 18:34) UNKNOWN gabapentin Adverse Reaction (Mild, Verified 06/11/24 18:34) Nausea and Vomiting DUST Allergy (Mild, Uncoded 06/11/24 18:34) UNKNOWN COUNTS INCLUDE 234 BEDS AT THE [facility] Medical History Rheumatoid arthritis Upper respiratory tract infection Skin lesion of face Skin abscess Hospital discharge follow-up Laceration of elbow, right Contusion of elbow, right Right knee skin infection Knee pain Pacemaker Sinus pause Opioid use disorder COPD with acute exacerbation COPD (chronic obstructive pulmonary disease) Left knee pain Paroxysmal atrial fibrillation Knee pain Abdominal pain Smoker Neurodermatitis COPD exacerbation Scalp abscess Vaginal discharge Skin lesion Osteoarthritis of thoracic spine Anxiety Surgical History History of basal cell carcinoma (BCC) excision Mammogram declined History of bilateral cataract extraction History of ectopic History of hip replacement History of nasal surgery Family History Father No problems noted. Mother No problems noted. Social History Household Members: None Housing: Apartment Do you presently have visiting nurse or other home services: No Alcohol intake: current Alcohol intake frequency: 3 or more drinks per day Alcohol type: hard liquor Patient Tobacco Use Status: Former Tobacco user Tobacco use type: Cigarette Cigarettes Per Day: 6 Years Smoked: 50 e-Cigarette/Vaping Use: Never Used Second Hand Smoke Exposure: Yes service: No Current occupational status: retired and disabled Cognitive needs: Yes Hearing needs: No Vision needs: No Office Procedures Cardiac Device Check Cardiac Device Check Details: Remote pacemaker report generated 06/25/2024. Pacemaker function is adequate. No episodes of atrial fibrillation noted [id number] Cardiac Device Interrogation, pacemaker Procedure code (CPT) selection complete Assessment & Plan Assessment & Plan (1) Pacemaker: Comment: Medtronic dual-chamber pacemaker placement 12/07/2021 Code(s): Z95.0 - Presence of cardiac pacemaker Category: Medical Plan: See above Coding Level of Care Code Procedure Only Diagnoses Pacemaker Z95.0 CPT Codes Cardiac Device Check - Cardiac Device 12: [id number] Cardiac Device Interrogation, pacemaker ([id number])
== END ==
PROVIDERS: PCP Internal Medicine; Visit Provider Internal Medicine Cardiovascular Disease
DX: Z95.0 Presence of cardiac pacemaker (principal)
CPT/HCPCS: 93294

== ENCOUNTER 2024-06-27 19:07 | Emergency (ER) | payer OTHER, SELFPAY ==
[2024-06-27 19:10] VITALS: BP 130/80; PULSE 92; O2SAT 96
[2024-06-27 19:19] VITALS: BP 189/86; PULSE 85; RESP 18; TEMP 36.9; O2SAT 93; BMI 18.7
[2024-06-27 20:02] LABS: MANUAL DIFF FLAG NO
[2024-06-27 20:04] LABS: Basophils Absolute Auto 0.1 X10*3/uL (0.0-0.2); Basophils Percent Auto 0.9 % (0-2); Eosinophils Absolute Auto 0.1 X10*3/uL (0.0-0.4); Eosinophils Percent Auto 0.8 % (0-4); Hematocrit 39.3 % (37.0-47.0); Hemoglobin 13.3 g/dl (12.0-16.0); Imm Gran Abs Auto 0.03 X10*3/uL (0.00-0.03); Imm Gran Pct Auto 0.4 % (0.0-0.4); Lymphocytes Absolute Auto 1.6 X10*3/uL (1.2-4.9); Lymphocytes Percent Auto 18.7 % (20-40); Mean Corpuscular HGB Conc 33.8 g/dl (31.0-35.0); Mean Corpuscular Hemoglobin 34.5 pg (27.0-33.0); Mean Corpuscular Volume 101.8 fL (80.0-98.0); Mean Platelet Volume 9.7 fL (9.4-12.3); Monocytes Absolute Auto 0.7 X10*3/uL (0.1-1.2); Monocytes Percent Auto 8.4 % (2-11); Neutrophils Percent Auto 70.8 % (45-73); Platelet Count 306 X10*3/uL (160-400); Red Blood Count 3.86 X10*6/uL (4.20-5.50); Red Cell Distribution Width 13.1 % (11.0-16.0); White Blood Count 8.4 X10*3/uL (4.8-10.8)
--- NOTE | 2024-06-27 20:04 | MHC.EDTECH ---
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
[2024-06-27] MEDS: LORazepam 1 MG TABLET PO (20:17)
[2024-06-27 20:20] VITALS: BP 196/97; PULSE 77; RESP 16; TEMP 36.2; O2SAT 97
[2024-06-27 20:25] LABS: Ethanol 143 mg/dL
[2024-06-27 20:26] LABS: Alanine Aminotransferase 55 U/L (0-31); Albumin Level 3.7 g/dL (3.5-5.0); Alkaline Phosphatase 114 U/L (39-117); Anion Gap 15 (12-20); Aspartate Amino Transferase 177 U/L (5-31); Bilirubin Total 0.2 mg/dL (0.0-1.0); Blood Urea Nitrogen 13 mg/dL (9-16); Calcium 8.9 mg/dL (8.4-10.2); Carbon Dioxide 26 mmol/L (22-29); Chloride 109 mmol/L (96-108); Creatinine Clr Calc Pharmacy 47.3; Estimated Glomerular Filt Rate > 60; Glucose Random 89 mg/dL (60-115); Potassium 3.2 mmol/L (3.3-5.1); Sodium 147 mmol/L (135-145); Total Protein 6.4 g/dL (6.5-8.0)
--- NOTE | 2024-06-27 20:32 | PC.NURSE ---
pt verbally expressing she wants to leave. getting upset. daughter at bedside redirecting pt to stay
--- NOTE | 2024-06-27 20:51 | PC.NURSE ---
pt removed elopement band from arm. replaced onto L ankle, daughter at bedside
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
[2024-06-27 21:30] LABS: Appearance Urine Clear; Color Urine Yellow; Glucose Urine UA Negative (Negative); Leukocyte Esterase Urine Negative (Negative); Nitrite Urine Negative (Negative); PH 5.5 (5.0-9.0); Specific Gravity - Urine 1.015 (1.005-1.025); UMIC TRIGGER UACC YES; Urine Blood Trace (Negative); Urine Ketones Negative (Negative); Urine Protein 30 (1+) mg/dL (Neg-Trace)
[2024-06-27 21:41] LABS: Amphetamine Screen Urine Not Detected (Not Detect); Barbiturates, Urine POSITIVE (Not Detect); Benzodiazepines Screen Urine POSITIVE (Not Detect); Buprenorphine Scr Positive (Not Detect); Cannabinoid Screen Urine Not Detected (Not Detect); Cocaine Screen Urine Not Detected (Not Detect); Fentanyl, urine Not Detected (Not Detect); Methadone Screen, Urine Not Detected (Not Detect); Opiate Screen Urine Not Detected (Not Detect); Oxycodone Screen Urine Not Detected (Not Detect); Phencyclidine Screen Urine Not Detected (Not Detect)
[2024-06-27 21:55] VITALS: BP 176/77; PULSE 78; RESP 16; TEMP 36.9; O2SAT 94
[2024-06-27 21:58] LABS: Bacteria Urine None Seen (None Seen); RBC Urine 0-2 /HPF (0-2); WBC Urine 0-5 /HPF (0-5)
[2024-06-27] MEDS: Potassium Chloride ER 20 MEQ TAB.ER.PRT PO (22:20)
[2024-06-27 22:22] VITALS: BP 176/77; PULSE 78; RESP 16; TEMP 36.9; O2SAT 94
== END 2024-06-27 22:26 | disposition home or self-care (01) ==
PROVIDERS: Emergency Provider Internal Medicine
DX: F10.129 Alcohol abuse with intoxication, unspecified (principal); F41.9 Anxiety disorder, unspecified; Y90.6 Blood alcohol level of 120-199 mg/100 ml; F43.9 Reaction to severe stress, unspecified; Z51.81 Encounter for therapeutic drug level monitoring; Z79.899 Other long term (current) drug therapy
CPT/HCPCS: 36415; 80053; 80307; 81001; 85025; 99283

== ENCOUNTER 2024-07-09 10:58 | Outpatient (AMB) | payer OTHER, SELFPAY ==
--- NOTE | 2024-07-09 11:02 | MHC.OFFVIS ---
Vital Signs 07/09/24 11:05 Height 5 ft 5 in Weight 109 lb 12.643 oz BMI 18.3 BP 160/92 H Blood Pressure Location Lt brachial Position Sitting Pulse 72 Pulse Source Pulse Oximeter Pulse Oximetry (%) 97 Oxygen Delivery Method Room Air Intake Visit Reasons: RA Intake Note: New patient internally referred by pain management. Presents today for RA. She states her pain is all over, she states she was recently taken off her tranquilizers. She states she has been prescribed SSRI, which did not work, now taking Buspirone. She states she had surgery in her head, 3 types of cancer. Allergies succinylcholine [SUCCINYLCHOLINE] Allergy (Severe, Verified 07/09/24 11:13) EXCESSIVE PARALYSIS tramadol Allergy (Intermediate, Verified 07/09/24 11:13) diarrhea, upset stomach cat dander [CATS] Allergy (Mild, Verified 07/09/24 11:13) UNKNOWN dog dander [DOGS] Allergy (Mild, Verified 07/09/24 11:13) UNKNOWN pollen extracts [POLLEN] Allergy (Mild, Verified 07/09/24 11:13) UNKNOWN gabapentin Adverse Reaction (Mild, Verified 07/09/24 11:13) Nausea and Vomiting DUST Allergy (Mild, Uncoded 07/09/24 11:13) UNKNOWN Medication List - Last Reconciled 07/09/24 by Asa Patel MD alprazolam 0.25 mg PO TID buprenorphine-naloxone 2-0.5 mg 1 film sublingual DAILY buspirone 10 mg PO BID flecainide 100 mg PO BID fluticasone furoate-vilanterol 100-25 mcg/dose (Breo Ellipta) 1 inh inhalation DAILY lisinopril 20 mg PO DAILY propranolol ER 60 mg PO DAILY rivaroxaban (Xarelto) 20 mg PO DAILY HPI Comments Details: This is a 78-year-old female who presents for evaluation of arthritis. She states that she has had arthritis for many years. She does not recall ever being evaluated by a model and pattern supervisor. She does not know whether she has rheumatoid arthritis. Both patient's elbows are significantly deformed and in a flexed position. She states that she broke her right elbow a few years ago and she did not get it looked at. It healed with a contracture. She also has a contracture on her left elbow. She does not recall whether she fractured it in the past. She has bilateral hip replacements.. She also has bilateral knee pain, much worse on the right. She states that she had a knee injection by Dr. Henson about a year ago which did not help much. She denies any swollen joints. Denies any significant morning stiffness. She is unaware of any family history of an autoimmune rheumatic disease [facility] Medical History Rheumatoid arthritis Upper respiratory tract infection Skin lesion of face Skin abscess Hospital discharge follow-up Laceration of elbow, right Contusion of elbow, right Right knee skin infection Knee pain Pacemaker Sinus pause Opioid use disorder COPD with acute exacerbation COPD (chronic obstructive pulmonary disease) Left knee pain Paroxysmal atrial fibrillation Knee pain Abdominal pain Smoker Neurodermatitis COPD exacerbation Scalp abscess Vaginal discharge Skin lesion Osteoarthritis of thoracic spine Anxiety Surgical History History of basal cell carcinoma (BCC) excision Mammogram declined History of bilateral cataract extraction History of ectopic History of hip replacement History of nasal surgery Family History Father No problems noted. Mother No problems noted. Social History Household Members: None Housing: Apartment Do you presently have visiting nurse or other home services: No Alcohol intake: current Alcohol intake frequency: 3 or more drinks per day Alcohol type: hard liquor Patient Tobacco Use Status: Former Tobacco user Tobacco use type: Cigarette Cigarettes Per Day: 6 Years Smoked: 50 e-Cigarette/Vaping Use: Never Used Second Hand Smoke Exposure: Yes service: No Current occupational status: retired and disabled Cognitive needs: Yes Hearing needs: No Vision needs: No Review of Systems Musc Reports deformity, Reports arthralgias, Reports limited range of motion and Reports stiffness Physical Exam Vital Signs: Last Vital Signs Pulse 72 07/09/24 11:05 BP 160/92 H 07/09/24 11:05 Pulse Ox 97 07/09/24 11:05 Oxygen Delivery Method Room Air 07/09/24 11:05 BMI result Body Mass Index 18.3 Const General: cooperative and healthy appearing Nutritional Appearance: thin Orientation/consciousness: patient oriented x3 Limitations: ambulation with cane HEENT Head: Yes normocephalic and Yes atraumatic Resp Effort & Inspection: normal respiratory effort and able to speak in complete sentences Cardio Other: Pacemaker left upper chest Skin Other: Rash on the anterior aspect of her scalp and on the left side. S/p surgery for skin cancer Neuro General: patient oriented x3 Extrem Other: Osteoarthritic changes of both hands but no active synovitis Normal nailfold capillaroscopy Significant deformity, enlargement of both elbow joints as well as significant contracture No warmth appreciated however Normal range of motion of shoulders Significant bilateral knee crepitus Right knee swelling, warmth and pain with range of motion No ankle swelling or tenderness Mild osteoarthritic changes of both feet Assessment & Plan Assessment & Plan (1) Multiple joint pain: Code(s): M25.50 - Pain in unspecified joint Category: Medical Plan: This is a 78-year-old female who presents for evaluation of multiple joint pain. On exam she has significant deformity and arthritis of both her elbows. She states that she broke her right elbow in the past and did not get it fixed. Patient's is a very poor historian. She does not recall whether she was evaluated by model and pattern supervisor in the past. Does not recall a diagnosis of an inflammatory arthritis. I will order comprehensive serology to screen for underlying autoimmune rheumatic disease. Check x-rays of wrists, hands, ankles and feet to evaluate for inflammatory arthropathy. Follow-up in 4-5 weeks Plan I spent 48 minutes reviewing patient's chart, evaluating patient, ordering diagnostic workup, counseling patient and documenting in the chart Orders: Orders Complete Blood Count Auto Diff Today M06.9 - Rheumatoid arthritis, unspecified Comprehensive Met. Panel Today M06.9 - Rheumatoid arthritis, unspecified C Reactive Protein Today M06.9 - Rheumatoid arthritis, unspecified Erythrocyte Sedimentation Rate Today M06.9 - Rheumatoid arthritis, unspecified T Spot TB Today Z11.7 - Encounter for testing for latent tuberculosis infection Rheumatoid Factor Today M06.9 - Rheumatoid arthritis, unspecified Cyclic Citrullinated Peptide Today M06.9 - Rheumatoid arthritis, unspecified HLA B27 Today M48.10 - Ankylosing hyperostosis [[place]], site unspecified Complement C4 Today M32.9 - Systemic lupus erythematosus, unspecified Protein Creatinine Ratio, Ur Today M32.9 - Systemic lupus erythematosus, unspecified Sjogren's Antibodies Today M32.9 - Systemic lupus erythematosus, unspecified UA w Microscopic Today M32.9 - Systemic lupus erythematosus, unspecified XR hand wrist LT Today M25.50 - Pain in unspecified joint XR hand wrist RT Today M25.50 - Pain in unspecified joint XR ankle LT min 3V Today M25.50 - Pain in unspecified joint XR foot LT min 3V Today M25.50 - Pain in unspecified joint XR foot RT min 3V Today M25.50 - Pain in unspecified joint XR knee LT 3V Today M25.50 - Pain in unspecified joint Hepatitis A,B,C Profile Today Z11.59 - Encounter for screening for other viral diseases JOE Reflex Titer and Pattern Today M32.9 - Systemic lupus erythematosus, unspecified Anti Extractable Nuclear Ag Today M32.9 - Systemic lupus erythematosus, unspecified Anti DNA DS Antibody Today M32.9 - Systemic lupus erythematosus, unspecified Complement C3 Today M32.9 - Systemic lupus erythematosus, unspecified DNA Double Stranded-Crithidia Today M32.9 - Systemic lupus erythematosus, unspecified XR ankle RT min 3V Today M25.50 - Pain in unspecified joint XR knee RT 3V Today M25.50 - Pain in unspecified joint XR knee standing BI Today M25.50 - Pain in unspecified joint Coding Level of Care Code New Pt Level 4 (66488) Diagnoses Multiple joint pain M25.50
[2024-07-09 11:05] VITALS: BP 160/92; PULSE 72; O2SAT 97; BMI 18.3
== END 2024-07-09 11:59 | disposition home or self-care (01) ==
PROVIDERS: PCP Internal Medicine; Visit Provider Student in an Organized Health Care Education/Training Program
DX: M25.50 Pain in unspecified joint (principal)
CPT/HCPCS: 99204

== ENCOUNTER → 2024-07-09 10:58 | Outpatient (BNVA) | payer OTHER, SELFPAY | PROVIDERS: PCP Internal Medicine; Visit Provider Student in an Organized Health Care Education/Training Program | DX: M25.50 Pain in unspecified joint (principal) | CPT/HCPCS: 99202 ==

== ENCOUNTER 2024-07-11 09:21 | Outpatient (AMB) | payer MEDICARE, SELFPAY ==
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
== END 2024-07-11 09:50 | disposition home or self-care (01) ==
PROVIDERS: PCP Internal Medicine; Visit Provider Nurse Practitioner Psychiatric/Mental Health
DX: F11.90 Opioid use, unspecified, uncomplicated (principal); F10.20 Alcohol dependence, uncomplicated
CPT/HCPCS: 99213

== ENCOUNTER → 2024-07-11 09:21 | Outpatient (BNVA) | payer MEDICARE, SELFPAY | PROVIDERS: PCP Internal Medicine; Visit Provider Nurse Practitioner Psychiatric/Mental Health | DX: F11.20 Opioid dependence, uncomplicated (principal); F10.20 Alcohol dependence, uncomplicated; Z79.899 Other long term (current) drug therapy; Z51.81 Encounter for therapeutic drug level monitoring | CPT/HCPCS: 99212 ==

== ENCOUNTER 2024-07-26 11:38 | Outpatient (AMB) | payer MEDICARE, SELFPAY ==
--- NOTE | 2024-07-26 11:42 | MHC.OFFVIS ---
Vital Signs 07/26/24 11:47 Height 5 ft 6 in Weight 106 lb BMI 17.1 BP 186/95 H Blood Pressure Location Rt brachial Position Sitting Pulse 85 Intake Visit Reasons: re-discuss surgery Intake Note: Patient here to re- discuss Lt inguinal surgery. Patient c/o: LLQ pain that is 7 out of 10. On Xarelto. Missed cardio follow up with Dr. Allen last week. CT: Abd/pelvis: 01-03-2024. Double End [place]on Operator Required: No Accompanied by: Self / Same As Patient Allergies succinylcholine [SUCCINYLCHOLINE] Allergy (Severe, Verified 07/26/24 11:43) EXCESSIVE PARALYSIS tramadol Allergy (Intermediate, Verified 07/26/24 11:43) diarrhea, upset stomach cat dander [CATS] Allergy (Mild, Verified 07/26/24 11:43) UNKNOWN dog dander [DOGS] Allergy (Mild, Verified 07/26/24 11:43) UNKNOWN pollen extracts [POLLEN] Allergy (Mild, Verified 07/26/24 11:43) UNKNOWN gabapentin Adverse Reaction (Mild, Verified 07/26/24 11:43) Nausea and Vomiting DUST Allergy (Mild, Uncoded 07/26/24 11:43) UNKNOWN HPI HPI re-discuss surgery: Details: 78-year-old female with multiple medical problems including COPD, and has a pacemaker, here for follow-up for a left groin hernia. I had been following her in the office because of this reducible hernia. She says that she has been noticing this reducible mass on the left groin. This causes some discomfort. She does not really state how long she has noticed this. She has known history of heavy smoking and she has COPD. She does not use O2 supplementation at this time. She also describes chronic back pain and asked for oxycodone for this. She says that she has had a hard time to get this prescription from her primary care physician. When I saw her in 12/06/2023, she stated that she did not want to proceed with repair because of her overall medical condition. She now is contemplating proceeding with surgery as she says that she ?does not like? the hernia. She does admit to some discomfort with this. [facility] Medical History Rheumatoid arthritis Upper respiratory tract infection Skin lesion of face Skin abscess Hospital discharge follow-up Laceration of elbow, right Contusion of elbow, right Right knee skin infection Knee pain Pacemaker Sinus pause Opioid use disorder COPD with acute exacerbation COPD (chronic obstructive pulmonary disease) Left knee pain Paroxysmal atrial fibrillation Knee pain Abdominal pain Smoker Neurodermatitis COPD exacerbation Scalp abscess Vaginal discharge Skin lesion Osteoarthritis of thoracic spine Anxiety Surgical History History of basal cell carcinoma (BCC) excision Mammogram declined History of bilateral cataract extraction History of ectopic History of hip replacement History of nasal surgery Family History Father No problems noted. Mother No problems noted. Social History Household Members: None Housing: Apartment Do you presently have visiting nurse or other home services: No Alcohol intake: current Alcohol intake frequency: 3 or more drinks per day Alcohol type: hard liquor Patient Tobacco Use Status: Former Tobacco user Tobacco use type: Cigarette Cigarettes Per Day: 6 Years Smoked: 50 e-Cigarette/Vaping Use: Never Used Second Hand Smoke Exposure: Yes service: No Current occupational status: retired and disabled Cognitive needs: Yes Hearing needs: No Vision needs: No Physical Exam Vital Signs: Last Vital Signs Pulse 85 07/26/24 11:47 BP 186/95 H 07/26/24 11:47 BMI result Body Mass Index 17.1 Assessment & Plan Assessment & Plan (1) Left inguinal hernia: Code(s): K40.90 - Unilateral inguinal hernia, without obstruction or gangrene, not specified as recurrent Category: Medical Plan: I again had a long discussion with her about the technique of repair of the left inguinal hernia with mesh. I reviewed the risks including but not limited to bleeding, infections, injury to other organs including bowel, recurrence, postop pain, heart attack, pneumonia, blood clots, as well as the benefits and alternatives. She does have multiple medical problems including COPD and history of cardiomyopathy. She understands that we therefore presents with significant perioperative risks. I had asked her to see her managing member as well as her senior android software engineer prior to surgery. She says she is going to do that. She will need to have preadmission testing as well once all of these are done She says she will call me once she talks to her managing member and senior android software engineer. Coding Level of Care Code Est Pt Level 3 (77223) Diagnoses Left inguinal hernia K40.90
[2024-07-26 11:47] VITALS: BP 186/95; PULSE 85; BMI 17.1
== END 2024-07-26 12:10 | disposition home or self-care (01) ==
LOC: HO.HGS 11:38
PROVIDERS: PCP Internal Medicine; Visit Provider Surgery
DX: K40.90 Unilateral inguinal hernia, without obstruction or gangrene, not specified as recurrent (principal)
CPT/HCPCS: 99213

== ENCOUNTER → 2024-07-26 11:38 | Outpatient (BNVA) | payer MEDICARE, SELFPAY | PROVIDERS: PCP Internal Medicine; Visit Provider Surgery | DX: K40.90 Unilateral inguinal hernia, without obstruction or gangrene, not specified as recurrent (principal) | CPT/HCPCS: 99212 ==

== ENCOUNTER 2024-07-31 14:48 | Outpatient (AMB) | payer MEDICARE, SELFPAY ==
--- NOTE | 2024-07-31 14:55 | A.OFFVIS_ITS ---
Vital Signs 07/31/24 14:57 Height 5 ft 5 in Weight 105 lb 13.15 oz BMI 17.6 BP 140/84 H Blood Pressure Location Lt brachial Position Sitting Pulse 69 Intake Visit Reasons: Clearance for Hernia surgery Intake Note: Pre-op hernia surgery with ekg Radio Interference Investigator Required: No Allergies succinylcholine [SUCCINYLCHOLINE] Allergy (Severe, Verified 07/26/24 11:43) EXCESSIVE PARALYSIS tramadol Allergy (Intermediate, Verified 07/26/24 11:43) diarrhea, upset stomach cat dander [CATS] Allergy (Mild, Verified 07/26/24 11:43) UNKNOWN dog dander [DOGS] Allergy (Mild, Verified 07/26/24 11:43) UNKNOWN pollen extracts [POLLEN] Allergy (Mild, Verified 07/26/24 11:43) UNKNOWN gabapentin Adverse Reaction (Mild, Verified 07/26/24 11:43) Nausea and Vomiting DUST Allergy (Mild, Uncoded 07/26/24 11:43) UNKNOWN Medication List - Last Reconciled 07/31/24 by Wayne Allen MD alprazolam 0.25 mg PO TID buprenorphine-naloxone 2-0.5 mg 1 film sublingual DAILY buspirone 10 mg PO BID flecainide 100 mg PO Q12H fluticasone furoate-vilanterol 100-25 mcg/dose (Breo Ellipta) 1 inh inhalation DAILY lisinopril 20 mg PO DAILY mupirocin calcium 2% 1 appl topical BID 30 days propranolol ER 60 mg PO DAILY rivaroxaban (Xarelto) 20 mg PO DAILY HPI Comments Details: Yamileth comes for follow-up. She is doing well from cardiac perspective. She denies any prolonged palpitation irregular heartbeat. No lightheadedness, syncope. She has lot of noncardiac complaints with pain. Her echocardiogram in February had shown normalized LV ejection fraction most likely due to control of her atrial fibrillation. Her myocardial perfusion imaging within normal limits. She is planned to undergo hernia surgery in the near future. She denies any lightheadedness, syncope. Taking all her medications but does not recall taking lisinopril. A blood pressure is elevated. [facility] Medical History Rheumatoid arthritis Upper respiratory tract infection Skin lesion of face Skin abscess Hospital discharge follow-up Laceration of elbow, right Contusion of elbow, right Right knee skin infection Knee pain Pacemaker Sinus pause Opioid use disorder COPD with acute exacerbation COPD (chronic obstructive pulmonary disease) Left knee pain Paroxysmal atrial fibrillation Knee pain Abdominal pain Smoker Neurodermatitis COPD exacerbation Scalp abscess Vaginal discharge Skin lesion Osteoarthritis of thoracic spine Anxiety Surgical History History of basal cell carcinoma (BCC) excision Mammogram declined History of bilateral cataract extraction History of ectopic History of hip replacement History of nasal surgery Family History Father No problems noted. Mother No problems noted. Social History Household Members: None Housing: Apartment Do you presently have visiting nurse or other home services: No Alcohol intake: current Alcohol intake frequency: 3 or more drinks per day Alcohol type: hard liquor Patient Tobacco Use Status: Former Tobacco user Tobacco use type: Cigarette Cigarettes Per Day: 6 Years Smoked: 50 e-Cigarette/Vaping Use: Never Used Second Hand Smoke Exposure: Yes service: No Current occupational status: retired and disabled Cognitive needs: Yes Hearing needs: No Vision needs: No Review of Systems Const Denies chills, Denies fatigue, Denies fever(s), Denies frequent falls, Denies weakness, Denies weight gain and Denies weight loss ENT Denies dizziness Card Denies chest pain, Denies leg edema, Denies lightheadedness, Denies palpitations, Denies dyspnea, Denies dyspnea on exertion, Denies orthopnea and Denies other (loss of consciousness) Resp Denies cough, Denies dyspnea and Denies dyspnea on exertion GI Denies hematochezia and Denies change in stool character Musc Denies abnormal gait, Denies muscle weakness, Denies numbness, Denies radiating pain into limb and Denies tingling Neuro Denies abnormal gait, Denies dizziness, Denies frequent falls, Denies numbness, Denies tingling and Denies weakness Endo Denies fatigue and Denies palpitations Physical Exam Vital Signs: Last Vital Signs Pulse 69 07/31/24 14:57 BP 140/84 H 07/31/24 14:57 BMI result Body Mass Index 17.6 Const General: cooperative, comfortable and no acute distress Orientation/consciousness: patient oriented x3 Neck Neck: Yes normal visual inspection and Yes no JVD Resp Effort & Inspection: normal respiratory effort Auscultation: clear to auscultation bilaterally, no crackles, no rales, no rhon chi and no wheezes Cardio Jugular venous distension: no JVD Rate: regular rate Rhythm: regular rhythm Heart sounds: S1 normal heart sound present, S2 normal heart sound present, no murmurs and no rubs Neuro General: patient oriented x3 Extrem General: Yes normal to inspection and No no pedal edema Psych Appearance: grossly normal Mental Status: mental status grossly normal Speech and movement: Normal speech and movement present Office Procedures Cardiac Device Check Cardiac Device Check Details: Dual-chamber Medtronic pacemaker in place. Programmed in MVP mode with rate response. Very active. Few episodes of atrial fibrillation noted. Atrial pacing 38% of the time. Atrial ventricular sensing is adequate. Atrial ventricular pacing thresholds adequate. Pacing lead impedance is stable. Battery life is at about 11.8 years [id number] Cardiac Device Check, pacemaker dual lead Procedure code (CPT) selection complete EKG Details: EKG shows normal sinus rhythm with possible left atrial enlargement with ST sagging suggestive of repolarization abnormality [id number], Complete Assessment & Plan Assessment & Plan (1) Paroxysmal atrial fibrillation: Comment: Status post ablation. Being maintained on antiarrhythmic with flecainide and has done very well with rhythm control approach Code(s): I48.0 - Paroxysmal atrial fibrillation Category: Medical Plan: Highly symptomatic paroxysmal atrial fibrillation as well as causing a cardiomyopathy process. Clinically has remained suppressed on flecainide therapy. Importance of medical therapy was discussed. Continue flecainide therapy. Continue concomitant propranolol therapy for AV andrés blocking. Continue full oral anticoagulation, currently on Xarelto 20 mg daily. Semi annual renal function test should be pursued. Avoidance of stimulants was discussed. Avoidance of alcohol was discussed. She has done well with rhythm control approach with improvement in her LV ejection fraction, see below (2) Pacemaker: Comment: Medtronic dual-chamber pacemaker placement 12/07/2021 Code(s): Z95.0 - Presence of cardiac pacemaker Category: Medical Plan: Cardiac pacemaker in-situ for sick sinus syndrome. Pacemaker is working well. Will follow remotely every 3 months. Follow up in the clinic in 6 months time. (3) Cardiomyopathy: Code(s): I42.9 - Cardiomyopathy, unspecified Category: Medical Plan: Cardiomyopathy process related to atrial fibrillation. Since maintaining rhythm, she has done extremely well with improvement in LV ejection fraction. Recommend to continue aggressive rhythm control approach. Continue neurohormonal modulation with propranolol and should also be on lisinopril therapy. She is going to go home and check on it. Avoidance of cardiotoxic agent such as alcohol was discussed. (4) Preoperative cardiovascular examination: Code(s): Z01.810 - Encounter for preprocedural cardiovascular examination Plan: Preoperative cardiovascular risk stratification for hernia surgery. Her current workup including myocardial perfusion imaging and echocardiogram within normal limits. She is optimized to undergo surgery with low risk for perioperative cardiovascular morbidity mortality. Follow up in the clinic in 6 months time, sooner p.r.n.. Thank you for allowing me to partake in his care Coding Level of Care Code Est Pt Level 4 (09530) Complex EM visit Add On G2211 Diagnoses Paroxysmal atrial fibrillation I48.0 Pacemaker Z95.0 Cardiomyopathy I42.9 Preoperative cardiovascular examination Z01.810 CPT Codes Cardiac Device Check - Cardiac Device 2: [id number] Cardiac Device Check, pacemaker dual lead ([id number]) EKG - CPT: 78302-[id number], Complete ([id number])
[2024-07-31 14:57] VITALS: BP 140/84; PULSE 69; BMI 17.6
== END 2024-07-31 15:46 | disposition home or self-care (01) ==
PROVIDERS: PCP Internal Medicine; Visit Provider Internal Medicine Cardiovascular Disease
DX: I48.0 Paroxysmal atrial fibrillation (principal); Z95.0 Presence of cardiac pacemaker; I42.9 Cardiomyopathy, unspecified; Z01.810 Encounter for preprocedural cardiovascular examination
CPT/HCPCS: 93010; 93280; 99214

== ENCOUNTER → 2024-07-31 14:48 | Outpatient (BNVA) | payer MEDICARE, SELFPAY | PROVIDERS: PCP Internal Medicine; Visit Provider Internal Medicine Cardiovascular Disease | DX: Z01.810 Encounter for preprocedural cardiovascular examination (principal); I48.0 Paroxysmal atrial fibrillation; I42.9 Cardiomyopathy, unspecified; Z95.0 Presence of cardiac pacemaker | CPT/HCPCS: 93005; 93280; 99212 ==

== ENCOUNTER 2024-08-08 09:15 | Outpatient (AMB) | payer MEDICARE, SELFPAY ==
--- NOTE | 2024-08-08 09:15 | MHC.AM.SUB ---
Intake Visit Reasons: MAT Tele Allergies succinylcholine [SUCCINYLCHOLINE] Allergy (Severe, Verified 07/26/24 11:43) EXCESSIVE PARALYSIS tramadol Allergy (Intermediate, Verified 07/26/24 11:43) diarrhea, upset stomach cat dander [CATS] Allergy (Mild, Verified 07/26/24 11:43) UNKNOWN dog dander [DOGS] Allergy (Mild, Verified 07/26/24 11:43) UNKNOWN pollen extracts [POLLEN] Allergy (Mild, Verified 07/26/24 11:43) UNKNOWN gabapentin Adverse Reaction (Mild, Verified 07/26/24 11:43) Nausea and Vomiting DUST Allergy (Mild, Uncoded 07/26/24 11:43) UNKNOWN HPI HPI MAT Tele: Details: Patient presents for follow up via telehealth Currently prescribed Suboxone 2mg daily Tolerating current dose Reporting that she is abstaining from alcohol Reporting she has a hernia and will require surgery--waiting on clearance for surgery Lost her drivers license for a year Has a home health aid once per week--not happy about it, but is willing to allow them in [facility] Medical History Rheumatoid arthritis Upper respiratory tract infection Skin lesion of face Skin abscess Hospital discharge follow-up Laceration of elbow, right Contusion of elbow, right Right knee skin infection Knee pain Pacemaker Sinus pause Opioid use disorder COPD with acute exacerbation COPD (chronic obstructive pulmonary disease) Left knee pain Paroxysmal atrial fibrillation Knee pain Abdominal pain Smoker Neurodermatitis COPD exacerbation Scalp abscess Vaginal discharge Skin lesion Osteoarthritis of thoracic spine Anxiety Surgical History History of basal cell carcinoma (BCC) excision Mammogram declined History of bilateral cataract extraction History of ectopic History of hip replacement History of nasal surgery Family History Father No problems noted. Mother No problems noted. Social History Household Members: None Housing: Apartment Do you presently have visiting nurse or other home services: No Alcohol intake: current Alcohol intake frequency: 3 or more drinks per day Alcohol type: hard liquor Patient Tobacco Use Status: Former Tobacco user Tobacco use type: Cigarette Cigarettes Per Day: 6 Years Smoked: 50 e-Cigarette/Vaping Use: Never Used Second Hand Smoke Exposure: Yes service: No Current occupational status: retired and disabled Cognitive needs: Yes Hearing needs: No Vision needs: No Review of Systems Const Reports as per HPI and Reports no additional complaints Telehealth Telehealth Telehealth Platform: Telephone Location of provider rendering services: practice address Location of patient: address on file Patient Identification confirmed using: Name, : Yes Telehealth method: voice only Patient verbally consented to treatment: Yes Patient verbally consented to billing insurance company: Yes Minutes spent on Phone/Video with Pt.: 15 Assessment & Plan Assessment & Plan (1) Alcohol use disorder, moderate, dependence: Code(s): F10.20 - Alcohol dependence, uncomplicated Category: Medical Plan: relapse prevention discussion (2) Opioid use disorder: Code(s): F11.90 - Opioid use, unspecified, uncomplicated Category: Medical Plan: continue current dose of suboxone
== END 2024-08-08 09:58 | disposition home or self-care (01) ==
PROVIDERS: PCP Internal Medicine; Visit Provider Nurse Practitioner Psychiatric/Mental Health
DX: F10.20 Alcohol dependence, uncomplicated (principal); F11.90 Opioid use, unspecified, uncomplicated
CPT/HCPCS: 99442

== ENCOUNTER → 2024-08-08 09:15 | Outpatient (BNVA) | payer MEDICARE, SELFPAY | PROVIDERS: PCP Internal Medicine; Visit Provider Nurse Practitioner Psychiatric/Mental Health | DX: F11.90 Opioid use, unspecified, uncomplicated (principal); F10.20 Alcohol dependence, uncomplicated ==

== ENCOUNTER 2024-08-09 16:24 | Outpatient (AMB) | payer OTHER, SELFPAY ==
[2024-08-09 16:38] VITALS: BP 158/100; BMI 17.5
--- NOTE | 2024-08-09 16:38 | MHC.PC.OV ---
Vital Signs 08/09/24 16:38 Height 5 ft 5 in Weight 105 lb BMI 17.5 BP 158/100 H Blood Pressure Location Lt brachial Position Sitting Intake Visit Reasons: Anxiety-needs 30 minutes Screenplay Writer Required: No Accompanied by: Self / Same As Patient Allergies succinylcholine [SUCCINYLCHOLINE] Allergy (Severe, Verified 08/09/24 16:51) EXCESSIVE PARALYSIS tramadol Allergy (Intermediate, Verified 08/09/24 16:51) diarrhea, upset stomach cat dander [CATS] Allergy (Mild, Verified 08/09/24 16:51) UNKNOWN dog dander [DOGS] Allergy (Mild, Verified 08/09/24 16:51) UNKNOWN pollen extracts [POLLEN] Allergy (Mild, Verified 08/09/24 16:51) UNKNOWN gabapentin Adverse Reaction (Mild, Verified 08/09/24 16:51) Nausea and Vomiting DUST Allergy (Mild, Uncoded 08/09/24 16:51) UNKNOWN Medication List - Last Reconciled 08/09/24 by Fany Meza MD alprazolam 0.25 mg PO TID buprenorphine-naloxone 2-0.5 mg 1 film sublingual DAILY buspirone 10 mg PO BID flecainide 100 mg PO Q12H fluticasone furoate-vilanterol 100-25 mcg/dose (Breo Ellipta) 1 inh inhalation DAILY lisinopril 20 mg PO DAILY mupirocin calcium 2% 1 appl topical BID 30 days propranolol ER 60 mg PO DAILY rivaroxaban (Xarelto) 20 mg PO DAILY Tobacco use date assessed: 01/05/24 Fall risk assessment: No Falls in past year Last assessed Fall Risk: 08/09/24 Dental Screening Dental Screen Date: 01/05/24 HPI HPI Comments History of Present Illness Details This is a 79-year-old female with mild major depression, anxiety, COPD, paroxysmal atrial fibrillation, essential hypertension, alcohol use disorder with dependence and cardiomyopathy that comes today for follow-up on her conditions. Has depression but declines treatment and is follow by Psychiatry. On benzodiazepines for anxiety which she is aware can cause addiction and sedation. This is given by Psychiatry. Trying to wean her off which had a nervous breakdown causing alcohol intoxication about a month ago. As per patient she stopped drinking alcohol since then. On chronic anticoagulation for her atrial fibrillation and last EKG done 07/31/2024 shows normal sinus rhythm. Atrial fibrillation and cardiomyopathy are follow by cardiology. COPD stable with long-acting inhaler and this is follow by pulmonology. She was advised to stop smoking. Blood pressure elevated today but she has run out of lisinopril because she lost the pills and will not be able to have it up until 08/13/2024. I did send a few amlodipine to cover before that day. Last echocardiogram done 2023 shows ejection fraction of 65% with no obvious valvular pathology. She has not gain 5 lb in a week. No chest pain or shortness on breath. Walks with a cane for gait stability. On buprenorphine-naloxone for her opioid use disorder. Last labs show hypokalemia and potassium will be repeated. [facility] Medical History (Updated 08/10/24 @ 09:06 by Fany Meza MD) Rheumatoid arthritis Upper respiratory tract infection Skin lesion of face Skin abscess Hospital discharge follow-up Laceration of elbow, right Contusion of elbow, right Right knee skin infection Knee pain Pacemaker Sinus pause Opioid use disorder COPD with acute exacerbation COPD (chronic obstructive pulmonary disease) Left knee pain Paroxysmal atrial fibrillation Knee pain Abdominal pain Smoker Neurodermatitis COPD exacerbation Scalp abscess Vaginal discharge Skin lesion Osteoarthritis of thoracic spine Anxiety Surgical History History of basal cell carcinoma (BCC) excision Mammogram declined History of bilateral cataract extraction History of ectopic History of hip replacement History of nasal surgery Family History Father No problems noted. Mother No problems noted. Social History (Updated 08/09/24 @ 16:56 by Fany Meza MD) Household Members: None Housing: Apartment Do you presently have visiting nurse or other home services: No Alcohol intake: former Patient Tobacco Use Status: Current everyday Tobacco user Tobacco use type: Cigarette Cigarettes Per Day: 6 Years Smoked: 50 e-Cigarette/Vaping Use: Never Used Second Hand Smoke Exposure: Yes service: No Current occupational status: retired and disabled Cognitive needs: Yes Hearing needs: No Vision needs: No Questionnaire Thrive Questionnaire Date Thrive assessed: 06/13/24 GORGE-7 AMB Questionnaire GORGE-7 Date GORGE - 7 assessed: 01/05/24 Source: Developed by Drs. Dane L. Lynn Lindsey, Jose Vivas and colleagues, with an educational afsaneh from [employer]. Review of Systems Const All systems reviewed & are unremarkable except as noted in HPI and below Card Denies chest pain at rest, Denies chest pain with activity, Denies edema, Denies irregular heart rhythm, Denies claudication, Denies dyspnea, Denies dyspnea on exertion, Denies orthopnea, Denies paroxysmal nocturnal dyspnea and Denies slow heart rate Resp Denies cough, Denies dyspnea and Denies dyspnea on exertion Physical exam (Primary Care) Vital Signs: Last Vital Signs BP 158/100 H 08/09/24 16:38 BMI result Body Mass Index 17.5 BMI Assessment/Plan discussion: Low Tobacco/Smoking Status: Tobacco use Status Tobacco use date assessed 01/05/24 08/09/24 16:43 Patient Tobacco Use Status Current everyday Tobacco 08/09/24 16:56 Tobacco use type Cigarette 08/09/24 16:56 e-Cigarette/Vaping Use Never Used 08/09/24 16:56 Are you ready to quit: No Tobacco cessation counseling provided: Yes Items discussed: Nicotine replacement and QuitWorks Relapse Prevention: discussed the importance of a supportive environment, discussed negative mood or depression after quitting, weight gain after smoking is common and discussed dietary, exercise and/or lifestyle changes Number of minutes spent counselin CPT code: 39851 - 4-10 Minutes Thrive Assessment: Date of Thrive Assessment Date Thrive assessed 06/13/24 08/09/24 16:43 Resp Effort & Inspection: normal respiratory effort Auscultation: clear to auscultation bilaterally Cardio Jugular venous distension: no JVD Rate: regular rate Rhythm: regular rhythm Heart sounds: S1 normal heart sound present and S2 normal heart sound present Extrem General: Yes full ROM Office Procedures Flu Questionnaire Does the patient have a severe egg allergy?: No Immunizations Fluarix Triv [id number] (PF) 45 mcg (15 mcg x 3)/0.5 mL IM syringe Performing Provider: Fany Meza MD [facility] Documented (not given) by: BERTHA Lopes on 08/09/24 16:45 Reason Not Given: Patient Refused Coding Level of Care Code Est Pt Level 4 (28859) Complex EM visit Add On G2211 Diagnoses Mild recurrent major depression F33.0 Chronic obstructive pulmonary disease, unspecified COPD type J44.9 COPD type: unspecified COPD Paroxysmal atrial fibrillation I48.0 Anxiety F41.9 Cardiomyopathy, unspecified type I42.9 Cardiomyopathy type: unspecified Hypokalemia E87.6 Essential hypertension I10 Alcohol use disorder, moderate, dependence F10.20 Opioid use disorder, moderate, in early remission, on maintenance therapy, dependence F11.21 Additional Codes Vital Signs *Quality* - CPT code: 76293 - 4-10 Minutes ([id number]) Time Spent (min) 26 Assessment & Plan Assessment & Plan (1) Mild recurrent major depression: Code(s): F33.0 - Major depressive disorder, recurrent, mild Category: Medical Plan: Follow by Psychiatry. (2) COPD (chronic obstructive pulmonary disease): Comment: MODERATELY SEVERE CHRONIC OBSTRUCTIVE PULMONARY DISEASE IS DEFINITELY RELATED TO HER LONG-TIME SMOKING. * STRESSED AGAIN THAT SHE MUST QUIT SMOKING COMPLETELY . TX CURRENT REGIMEN IS ADEQUATE, CONTINUE BREO- 100 1 INHALATION DAILY . SPIRIVA HANDIHALER 1 INHALATION DAILY. USE ALBUTEROL HFA 2 PUFFS Q 4-6 HOURS ONLY P.R.N. Code(s): J44.9 - Chronic obstructive pulmonary disease, unspecified Category: Medical Qualifiers: COPD type: unspecified COPD Qualified Code(s): J44.9 - Chronic obstructive pulmonary disease, unspecified Plan: Continue long-acting inhaler. (3) Paroxysmal atrial fibrillation: Comment: Status post ablation. Being maintained on antiarrhythmic with flecainide and has done very well with rhythm control approach Code(s): I48.0 - Paroxysmal atrial fibrillation Category: Medical Plan: Continue chronic anticoagulation. Follow-up with Cardiology. The goal is heart rate control. (4) Anxiety: Code(s): F41.9 - Anxiety disorder, unspecified Category: Medical Plan: Follow with Psychiatry. (5) Cardiomyopathy: Code(s): I42.9 - Cardiomyopathy, unspecified Category: Medical Qualifiers: Cardiomyopathy type: unspecified Qualified Code(s): I42.9 - Cardiomyopathy, unspecified Plan: The goal is to not gain 5 lb in a week. Follow-up with Cardiology. (6) Hypokalemia: Code(s): E87.6 - Hypokalemia Category: Medical Plan: Repeat potassium. (7) Essential hypertension: Code(s): I10 - Essential (primary) hypertension Category: Medical Plan: Continue lisinopril. For now take amlodipine up until 08/13/2024. Blood pressure goal is equal or less than 130/80. Recheck blood pressure with nurse navigator in 3 weeks. (8) Alcohol use disorder, moderate, dependence: Code(s): F10.20 - Alcohol dependence, uncomplicated Category: Medical Plan: Follow-up with [facility]. Stop drinking alcohol. (9) Opioid use disorder, moderate, in early remission, on maintenance therapy, dependence: Code(s): F11.21 - Opioid dependence, in remission Category: Medical Plan: Continue maintenance therapy. Follow-up with [facility]. Orders: Orders Potassium 08/09/24 E87.6 - Hypokalemia Influenza [id number] Immunization 08/09/24 Z23 - Encounter for immunization Medications: New amlodipine 5 mg PO DAILY 4 days 4 tabs 0RF Changed From lisinopril 20 mg PO DAILY To lisinopril 20 mg PO DAILY 90 days 90 tabs 1RF
== END 2024-08-09 17:03 | disposition home or self-care (01) ==
PROVIDERS: PCP Internal Medicine; Visit Provider Internal Medicine
DX: J44.9 Chronic obstructive pulmonary disease, unspecified (principal); F33.0 Major depressive disorder, recurrent, mild; I48.0 Paroxysmal atrial fibrillation; I42.9 Cardiomyopathy, unspecified; F10.20 Alcohol dependence, uncomplicated; F11.21 Opioid dependence, in remission; F41.9 Anxiety disorder, unspecified; E87.6 Hypokalemia; I10 Essential (primary) hypertension

== ENCOUNTER → 2024-08-09 16:24 | Outpatient (BNVA) | payer OTHER, SELFPAY | PROVIDERS: PCP Internal Medicine; Visit Provider Internal Medicine | DX: F33.0 Major depressive disorder, recurrent, mild (principal); J44.9 Chronic obstructive pulmonary disease, unspecified; I48.0 Paroxysmal atrial fibrillation; F41.9 Anxiety disorder, unspecified; I42.9 Cardiomyopathy, unspecified; E87.6 Hypokalemia; I10 Essential (primary) hypertension; F10.20 Alcohol dependence, uncomplicated; F11.21 Opioid dependence, in remission | CPT/HCPCS: 90471; 99212 ==

== ENCOUNTER 2024-08-29 13:56 | Outpatient (AMB) | payer MEDICARE, SELFPAY ==
--- NOTE | 2024-08-29 14:11 | MHC.OFFVIS ---
Vital Signs 08/29/24 14:12 Height 5 ft 5 in Weight 105 lb BMI 17.5 BP 102/60 Blood Pressure Location Lt brachial Position Sitting Pulse 82 Pulse Source Pulse Oximeter Pulse Oximetry (%) 97 Oxygen Delivery Method Room Air Intake Visit Reasons: cough Intake Note: pt is here for follow up and states her sprivia cap is not covered by insurance and needs alternative or PA for this drug. She does have a sinus issue going on, some coughing with green in color/ chronic nasal congestion. Director Of Preclinical Research Required: No Allergies succinylcholine [SUCCINYLCHOLINE] Allergy (Severe, Verified 08/29/24 14:29) EXCESSIVE PARALYSIS tramadol Allergy (Intermediate, Verified 08/29/24 14:29) diarrhea, upset stomach cat dander [CATS] Allergy (Mild, Verified 08/29/24 14:29) UNKNOWN dog dander [DOGS] Allergy (Mild, Verified 08/29/24 14:29) UNKNOWN pollen extracts [POLLEN] Allergy (Mild, Verified 08/29/24 14:29) UNKNOWN gabapentin Adverse Reaction (Mild, Verified 08/29/24 14:29) Nausea and Vomiting DUST Allergy (Mild, Uncoded 08/29/24 14:29) UNKNOWN Medication List - Last Reconciled 08/29/24 by Tala Taylor MD alprazolam 0.25 mg PO TID amlodipine 5 mg PO DAILY 4 days buprenorphine-naloxone 2-0.5 mg 1 film sublingual DAILY buspirone 10 mg PO BID flecainide 100 mg PO Q12H fluticasone furoate-vilanterol 100-25 mcg/dose (Breo Ellipta) 1 inh inhalation DAILY lisinopril 20 mg PO DAILY 90 days mupirocin calcium 2% 1 appl topical BID 30 days propranolol ER 60 mg PO DAILY rivaroxaban (Xarelto) 20 mg PO DAILY tiotropium bromide (Spiriva with HandiHaler) 1 cap inhalation DAILY Do you need a note to return to daycare/school/sports/work: No HPI HPI cough: Details: Yamileth Gilbert 79 years old female, has been a lifelong smoker, she is being treated for COPD, also has chronic allergic rhinitis, with frequent bouts of sinusitis. She is coming to see me after more than a year. The main reason being that she is expecting to have left inguinal herniorrhaphy in the near future, and needs pulmonary clearance. Smokes 6 cigarettes a day, this is down from 1 pack a day. Has mild intermittent cough secondary. to COPD and her smoking She gets short of breath if she walks around however she does not walk too fast anyway. Pulmonary steve she has been fairly stable with the use of Breo and Spiriva HandiHaler. She needs to use albuterol just once in a while. [facility] Medical History Rheumatoid arthritis Upper respiratory tract infection Skin lesion of face Skin abscess Hospital discharge follow-up Laceration of elbow, right Contusion of elbow, right Right knee skin infection Knee pain Pacemaker Sinus pause Opioid use disorder COPD with acute exacerbation COPD (chronic obstructive pulmonary disease) Left knee pain Paroxysmal atrial fibrillation Knee pain Abdominal pain Smoker Neurodermatitis COPD exacerbation Scalp abscess Vaginal discharge Skin lesion Osteoarthritis of thoracic spine Anxiety Surgical History History of basal cell carcinoma (BCC) excision Mammogram declined History of bilateral cataract extraction History of ectopic History of hip replacement History of nasal surgery Family History Father No problems noted. Mother No problems noted. Social History Household Members: None Housing: Apartment Do you presently have visiting nurse or other home services: No Alcohol intake: former Patient Tobacco Use Status: Current everyday Tobacco user Tobacco use type: Cigarette Cigarettes Per Day: 6 Years Smoked: 50 e-Cigarette/Vaping Use: Never Used Second Hand Smoke Exposure: Yes service: No Current occupational status: retired and disabled Cognitive needs: Yes Hearing needs: No Vision needs: No Review of Systems Const All systems reviewed & are unremarkable except as noted in HPI and below Eyes Reports no additional complaints ENT Reports nasal congestion (Mild off and on) Card Denies chest pain, Reports irregular heart rhythm, Denies leg edema and Reports other (Has pacemaker in left pectoral area) Resp Reports as per HPI GI Reports no additional complaints Reports no additional complaints Musc Reports back pain (Chronic) and Reports arthralgias Skin/Breast Reports rash (Chronic neuro dermatitis) Neuro Reports no additional complaints Psych Reports anxiety Physical Exam Vital Signs: Last Vital Signs Pulse 82 08/29/24 14:12 BP 102/60 08/29/24 14:12 Pulse Ox 97 08/29/24 14:12 Oxygen Delivery Method Room Air 08/29/24 14:12 BMI result Body Mass Index 17.5 Const General: comfortable, no acute distress, alert and awake Orientation/consciousness: patient oriented x3 HEENT Head: Yes normal to inspection General nose exam: No nasal polyps present and No nasal discharge present Face and sinus: Yes sinuses nontender Mouth: oropharynx normal Throat: Yes posterior oropharynx normal Eyes General: appearance normal, both eyes and all related structures Neck Neck: Yes normal visual inspection, Yes no lymphadenopathy, Yes trachea midline and Yes no JVD Thyroid: Thyroid normal Chest Chest palpation & inspection: normal inspection of the chest, normal palpation of entire chest wall and no tenderness Resp Other: Percussion note hyper-resonant, breath sounds are distant with prolonged expiratory phase but equal on both sides. No wheezes crepitations or rhonchi are heard. Cardio Palpation: normal PMI Rate: regular rate Rhythm: regular rhythm Heart sounds: no gallops and no murmurs GI Palpation (GI): Soft to palpation, nontender, No hepatosplenomegaly present and no masses Auscultation: normal bowel sounds Back/Spine/Pelvis Thoracic/Lumbar Spine: thoracic and lumbar spine normal to inspection, Thoracic/lumbar scoliosis (Of dorsal lumbar spine) and thoraco-lumbar spasm Skin General skin exam: crusts (Multiple areas of ulcerated and crusted rash especially on scalp and back) Neuro General: patient oriented x3 and no focal motor deficits Cranial nerves: Yes CN's II-XII intact bilaterally Extrem General: Yes normal to inspection, Yes no clubbing, cyanosis or edema and Yes no calf tenderness Psych Speech and movement: Normal speech and movement present Assessment & Plan Assessment & Plan (1) Smoker: Comment: THIS IS HER LIFELONG ISSUE, SHE CONTINUES TO SMOKE. SHE IS DEFINITELY DEPENDENT UPON NICOTINE AND ANY EVENT OF STRESS INCREASES THE NUMBER OF CIGARETTES. CLAIMS THAT SHE HAS CUT DOWN THE CIGARETTES TO 6 A DAY. Code(s): F17.200 - Nicotine dependence, unspecified, uncomplicated Category: Social Hx Plan: STRESSED THAT SHE SHOULD TRY TO QUIT COMPLETELY. SHE FINDS IT HARD . DOES NOT WANT TO USE NICOTINE PATCH WILL TRY TO CUT DOWN TO 5 AND THEN 4 CIGARETTES A DAY. (2) COPD (chronic obstructive pulmonary disease): Comment: MODERATELY SEVERE CHRONIC OBSTRUCTIVE PULMONARY DISEASE IS DEFINITELY RELATED TO HER LONG-TIME SMOKING. * STRESSED AGAIN THAT SHE MUST QUIT SMOKING COMPLETELY . HER RESPIRATORY STATUS IS VERY STABLE, LUNGS ARE CLEAR AND SHE HAS NO ACTIVE WHEEZES. Code(s): J44.9 - Chronic obstructive pulmonary disease, unspecified Category: Medical Qualifiers: COPD type: unspecified COPD Qualified Code(s): J44.9 - Chronic obstructive pulmonary disease, unspecified Plan: TX CONTINUE BREO- 100 1 INHALATION DAILY . SPIRIVA HANDIHALER 1 INHALATION DAILY. THE INSURANCE HAS NOTIFIED HER THAT SPIRIVA HANDIHALER WILL BE TAKEN OFF THE FORMULARY ( [facility] I TOLD HER THAT WE WILL CHECK FOR THE ALTERNATIVE LIST ON THEIR FORMULARY AND PRESCRIBED TO THE ALTERNATE AGENT. USE ALBUTEROL HFA 2 PUFFS Q 4-6 HOURS ONLY P.R.N. Scribe Plan - Not visible on output: * FAR CLEARANCE FOR SURGERY( LEFT INGUINAL HERNIA REPAIR) FROM PULMONARY POINT OF VIEW SHE IS CLEARED. HIS COPD IS WELL CONTROLLED AND STABLE. IT IS DESIRABLE FOR HER TO QUIT SMOKING COMPLETELY BEFORE SURGERY Coding Level of Care Code Est Pt Level 3 (44252) Diagnoses Smoker F17.200 Chronic obstructive pulmonary disease, unspecified COPD type J44.9 COPD type: unspecified COPD
[2024-08-29 14:12] VITALS: BP 102/60; PULSE 82; O2SAT 97; BMI 17.5
== END 2024-08-29 14:43 | disposition home or self-care (01) ==
PROVIDERS: PCP Internal Medicine; Visit Provider Internal Medicine
DX: F17.200 Nicotine dependence, unspecified, uncomplicated (principal); J44.9 Chronic obstructive pulmonary disease, unspecified
CPT/HCPCS: 99213

== ENCOUNTER → 2024-08-29 13:56 | Outpatient (BNVA) | payer MEDICARE, SELFPAY | PROVIDERS: PCP Internal Medicine; Visit Provider Internal Medicine | DX: J44.9 Chronic obstructive pulmonary disease, unspecified (principal); J30.9 Allergic rhinitis, unspecified; F17.210 Nicotine dependence, cigarettes, uncomplicated | CPT/HCPCS: 99212 ==

== ENCOUNTER 2024-09-21 09:21 | Outpatient (AMB) | payer MEDICARE, SELFPAY ==
--- NOTE | 2024-09-21 09:22 | A.OFFVISCC_ITS ---
Intake Visit Reasons: MAT Tele Allergies succinylcholine [SUCCINYLCHOLINE] Allergy (Severe, Verified 08/29/24 14:29) EXCESSIVE PARALYSIS tramadol Allergy (Intermediate, Verified 08/29/24 14:29) diarrhea, upset stomach cat dander [CATS] Allergy (Mild, Verified 08/29/24 14:29) UNKNOWN dog dander [DOGS] Allergy (Mild, Verified 08/29/24 14:29) UNKNOWN pollen extracts [POLLEN] Allergy (Mild, Verified 08/29/24 14:29) UNKNOWN gabapentin Adverse Reaction (Mild, Verified 08/29/24 14:29) Nausea and Vomiting DUST Allergy (Mild, Uncoded 08/29/24 14:29) UNKNOWN HPI HPI MAT Tele: Details: Patient presents for follow up via telehealth Currently prescribed Suboxone 2mg QD Tolerating current dose --has been taking full dose consistently, I think it is actually helping me She expressed some anxiety related to numerous provider appts and frustration without being able to drive Encouraged patient to reach out to her supports as needed Review of Systems Const Reports as per HPI Telehealth Telehealth Telehealth Platform: Telephone Location of provider rendering services: practice address Location of patient: address on file Patient Identification confirmed using: Name, : Yes Telehealth method: voice only Patient verbally consented to treatment: Yes Patient verbally consented to billing insurance company: Yes Minutes spent on Phone/Video with Pt.: 15 Assessment & Plan Assessment & Plan (1) Opioid use disorder, moderate, in early remission, on maintenance therapy, dependence: Code(s): F11.21 - Opioid dependence, in remission Category: Medical Plan: * continue suboxone at current dose * follow up 2 months (2) Alcohol use disorder, moderate, dependence: Code(s): F10.20 - Alcohol dependence, uncomplicated Category: Medical Plan: * relapse prevention discussion [facility] Medical History Rheumatoid arthritis Upper respiratory tract infection Skin lesion of face Skin abscess Hospital discharge follow-up Laceration of elbow, right Contusion of elbow, right Right knee skin infection Knee pain Pacemaker Sinus pause Opioid use disorder COPD with acute exacerbation COPD (chronic obstructive pulmonary disease) Left knee pain Paroxysmal atrial fibrillation Knee pain Abdominal pain Smoker Neurodermatitis COPD exacerbation Scalp abscess Vaginal discharge Skin lesion Osteoarthritis of thoracic spine Anxiety Surgical History History of basal cell carcinoma (BCC) excision Mammogram declined History of bilateral cataract extraction History of ectopic History of hip replacement History of nasal surgery Family History Father No problems noted. Mother No problems noted. Social History Household Members: None Housing: Apartment Do you presently have visiting nurse or other home services: No Alcohol intake: former Patient Tobacco Use Status: Current everyday Tobacco user Tobacco use type: Cigarette Cigarettes Per Day: 6 Years Smoked: 50 e-Cigarette/Vaping Use: Never Used Second Hand Smoke Exposure: Yes service: No Current occupational status: retired and disabled Cognitive needs: Yes Hearing needs: No Vision needs: No
--- OUTSIDE RECORDS SUMMARY | 2024-09-26 06:54 | XMS_ITS | Data Portability ---
Author Organization [place] [facility], [facility] Address [address] [place] [id number] Care Team Providers Care Publicity Manager Name Role Phone JOE SHELBY Primary Care Provider [facility] OTHER [facility] WOMEN?[facility] D[facility] OTHER Assessment Encounter Date Assessment Date Assessment LastModified by Organization Details LastModified Time 03/13/2021 03/13/2021 Time On Scene with Patient: 01:36:01 [email or web address] Not available 03/14/2021 17:43:43 06/14/2021 06/14/2021 Time On Scene with Patient: 00:36:35 - Referred - Point of Care: Emergency Department [email or web address] Not available 06/14/2021 21:09:04 08/08/2022 08/08/2022 Time On Scene with Patient: 00:46:23 77 YO F patient established with however new to . Per patient she has neuro dermatitis x 13 years and is experiencing a flare up, she has an appointment with neuro on August 17 and needs pain medication Tylenol with Codeine refill until she is seen by specialist. States she had the flare up about a week ago and was told by I don't know the name of the doctor that she has shingles. Rash is to occipital area and mid upper forehead. Describes pain like someone is stabbing me . She was prescribed Pregablin by PCP , which patient states upsets her stomach. She admits to being on chronic narcotic use. Suboxone was prescribed however she sustained an allergic reaction. This pain is bad I don't want to go out there and get something probably laced with Fentanyl . VSS Exam: Well appearing, well nourished, well developed. NAD. Pleasant, elderly female sitting at kitchen chair conversing with staff and answering all questions appropriately. No acute distress, neurologically intact, EOMI, non injected. BLCTA. Gait and stance normal. No edema to ble. Skin: SEE PIC FOR DETAIL. DDX: psoriasis, allergic dermatitis, herpes zoster Test: None Plan: -Patient contacted for pain medication (Tylenol with codeine) until she is seen by specialist the first week of August. Demonstrates drug seeking behavior. She was told that does not prescribe any narcotics and perhaps should contact PCP or whatever physician prescribed her Tylenol with Codeine for refill on medication. Topical Lidocaine cream, which she already has, was recommended to apply to affected area for comfort. It did not have appearance of shingles and has had skin flare up for over a week. Has Pregablin which was prescribed by which patient states causes GI upset. The patient is advised to make an appt with PCP in 3-5 days to discuss ongoing symptoms/ further management. The patient is also advised to go to the ED immediately for any worsening symptoms. The patient understood and agreed with this plan. The patient was given discharge instructions and all questions were answered prior to team departure. [email or web address] Not available 08/10/2022 14:13:30 Plan of Treatment Reminders Order Date Submit Date Provider Last Modified By Organization Details Last Modified Time Details Appointments None record ed. Lab None record ed. Referral None record ed. Procedures None record ed. Surgeries None record ed. Imaging None record ed. Medication Orders None record ed. Patient TargetsNo targets recorded. Patient Instructions Encounter Date Encounter Id Patient Instructions Last Modified By Organization Details Last Modified Time 03/13/2021 [id number] Today you were seen for pain in your right knee. You were treated for possible infection recently with doxycycline and mupirocin topical cream. It appears the medicine has helped as no signs of infection are now present. For the pain, you currently take oxycodone for arthritis pain. This is strong medicine. Other medicines to add are less strong but can help. You have tried some medicines such as lidocaine patches that have not helped in the past. Because you are on a blood thinner, it is not advised to use NSAIDs, which include ibuprofen. You may use capsaicin topical cream to the right knee at the low concentration, which you stated has helped in the past. You have an appointment with your doctor on March 18. You should discuss the results of the knee xrays you said were done last week so that you can learn what is causing the pain. [email or web address] Not available 03/13/2021 21:09:52 08/08/2022 [id number] rash: care instructions [email or web address] Not available 08/10/2022 14:14:03 Thank you for yo ur visit with [facility] today. We cannot always find the exact cause of your symptoms during your initial visit. Please follow up with your primary care provider or specialist within 12-24 hours within 24-48 hours to be rechecked or seek medical attention if your symptoms do not go away or get worse. If you develop any new or worsening symptoms and need after hours care, please go to nearest ER and/or call 911. If you have additional concerns or develop a change in your condition between 8am-10pm, please call [facility] at [phone] to help navigate your care. Please seek care or call your primary provider if the rash: 1. Worsens 2. Lasts longer than one week 3. Shows signs of local infection (redness, oozing, or swelling) 4. Occurs together with fever, chills, swollen glands, or other symptoms of infection 5. Looks dark purple or spotted 6. Occurs together with symptoms that suggest autoimmune disorder (recurring fever, malaise, fatigue, unexplained weight loss, or joint swelling) If you have additional concerns or develop a change in your condition between 8am-10pm, please call [facility] at [phone] to help navigate your care. [email or web address] Not available 08/10/2022 14:12:58 Reason for Referral None Reported. Problems Name Problem SNOMED Code Status Onset Date Resolution Date Notes Provider Name and Address Organization Details Recorded Time Heart failure with normal ejection fraction 527321832 Active 2020 FEDERICO ANDERSON NP [address] [place], [address], [place] [facility] 20:24:01 Chronic obstructi ve pulmonary disease 41633853 Active 2020 FEDERICO ANDERSON NP [address] [place], [address], [place] [facility] 20:24:15 Smoker 73016734 Active 2020 FEDERICOROSALEE HERNÁNDEZRADHA, RECEIVER/LABORER [address], [place], [address], [place] [facility] 20:24:34 Pulmonary hypertens ion 56094191 Completed 202003/13/2021 FEDERICO JUSTIN, RECEIVER/LABORER [address], [place], [address], [place] [facility] 20:25:18 Mild pulmonary hypertens ion 299085972 Active 2020 FEDERICO JUSTIN, RECEIVER/LABORER [address], [place], [address], [place] [facility] 20:25:34 Paroxysma l atrial fibrillat ion 656145715 Active 2020 FEDERICOFrancisco ANDERSON, RECEIVER/LABORER [address], [place], [address], [place] [facility] 20:26:57 Scoliosis deformity of spine 454182259 Active 2020 FEDERICO JUSTIN, RECEIVER/LABORER [address], [place], [address], [place] [facility] 16:46:51 Gastroeso phageal reflux disease 428679739 Active 2020 FEDERICOFrancisco ANDERSON, RECEIVER/LABORER [address], [place], [address], [place] [facility] 16:47:02 Chronic hepatitis C 753129147 Completed 202003/14/2021 FEDERICOFrancisco ANDERSON, RECEIVER/LABORER [address], [place], [address], [place] [facility] 16:47:41 Osteoarth ritis 792611376 Active 2020 FEDERICO ANDERSON, RECEIVER/LABORER [address] [place], [address], [place] [facility] 16:48:10 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 Procedures Surgical History Date Name Laterality Status Provider Name and Address Organization Details Recorded Time prosthetic arthroplasty of the hip completed Crys Woody, GIANNA [address], [place], [address], [place] [facility] 06/14/2021 20:35:33 cardiac ablation using fluoroscopy guidance completed Crys Woody, GIANNA [address], [place], [address], [place] [facility] 06/14/2021 20:35:44 Imaging Results None recorded. Procedure Notes None recorded. Medical Equipment None Reported. Allergies Allergen ID Allergen Name Allergen Category Reaction Reaction Severity Criticality Documentation Date Start Date Code Code System Note Provider Name and Address Organization Details Recorded Time [id number] amiodaron e medicatio n Not available Not available Not available 03/14/2021 703 RxNorm FEDERICO ANDERSON NP [address], [place], [address], [place] [facility] 16:45:41 19800423 tramadol medicatio n Not available Not available Not available 03/14/2021 14086 RxNorm FEDERICO ANDERSON NP [address], [place], [address], [place] [facility] 16:45:49 483690 succinylc holine Not available Not available Not available Not available 03/14/2021 31633 RxNorm FEDERICO ANDERSON NP [address], [facility] [place], [address], [place] [facility] 16:46:00 [id number] cat dander environme nt Not available Not available Not available 03/14/2021 FEDERICO ANDERSON, GIANNA [address], [place], [address], [place] [facility] 16:46:09 [id number] POLLEN EXTRACTS environme nt,medica tion Not available Not available Not available 03/14/2021 28695 6 RxNorm FEDERICO ANDERSON, RECEIVER/LABORER [address], [place], [address], [place] [facility] 16:46:24 Medications Name Sig Start Date Stop Date Status Note LastModified by Organization Details LastModified Time amoxicillin 500 mg capsule active Not Available Not Available Not Available ketoconazol e 2 % shampoo active Not Available Not Available Not Available triamcinolo ne acetonide 0.5 % topical cream active Not Available Not Available Not Available azithromyci n 250 mg tablet active Not Available Not Available Not Available fluconazole 150 mg tablet active Not Available Not Available Not Available valacyclovi r 1 gram tablet active Not Available Not Available Not Available meloxicam 15 mg tablet active Not Available Not Available Not Available propranolol ER 60 mg capsule,24 hr,extended release active Not Available Not Available Not Available clobetasol 0.05 % topical cream active Not Available Not Available Not Available hydralazine 25 mg tablet TAKE 1 TABLET BY MOUTH THREE TIMES A DAY; PLEASE MEASURE BLOOD PRESSURE AT HOME AND DO NOT TAKE IF SYSTOLIC BP <160 OR DIASTOLIC BP <100 active Not Available Not Available No t Available acetaminoph en 300 mg-codeine 15 mg tablet active Not Available Not Available Not Available fluocinonid e 0.05 % topical ointment active Not Available Not Available Not Available sulfamethox azole 800 mg-trimetho prim 160 mg tablet active Not Available Not Available Not Available alprazolam 0.5 mg tablet active Not Available Not Available Not Available cephalexin 500 mg capsule 06/14 completed Not Available Not Available Not Available flecainide 100 mg tablet active Not Available Not Available Not Available gabapentin 300 mg capsule active Not Available Not Available Not Available sertraline 25 mg tablet active Not Available Not Available Not Available hydroxyzine HCl 25 mg tablet active Not Available Not Available Not Available mupirocin 2 % topical ointment active Not Available Not Available Not Available loteprednol etabonate 0.5 % eye drops,suspe nsion active Not Available Not Available Not Available fluocinonid e 0.05 % topical solution active Not Available Not Available Not Available methylpredn isolone 4 mg tablets in a dose pack active Not Available Not Available Not Available doxycycline hyclate 100 mg tablet active Not Available Not Available No t Available oxycodone 5 mg tablet active Not Available Not Available No t Available Spiriva with HandiHaler 18 mcg and inhalation capsules active Not Available Not Available Not Available 8 Hour Pain Reliever 650 mg tablet,exte nded release active Not Available Not Available Not Available propranolol active Not Available Not A vailable Not Available flecainide 100 active Not Available Not Av ailable Not Available hydrochloro thiazide 12.5 mg tablet active Not Available Not Available Not Available oxycodone 10 mg tablet active Not Available Not Available Not Available buprenorphi ne 2 mg-naloxone 0.5 mg sublingual film active Not Available Not Available Not Available buprenorphi ne 8 mg-naloxone 2 mg sublingual film active Not Available Not Available Not Available buprenorphi ne 5 mcg/hour weekly transdermal patch active Not Available Not Available Not Available Xarelto 20 mg tablet Take 1 tablet every day by oral route. active Not Available Not Available No t Available lidocaine 5 % topical ointment active Not Available Not Available Not Available EpiCeram topical emulsion, extended release APPLY TO ALL AREA OF BODY FOR MOISTURE SKIN BARRIER REPAIR TWICE DAILY active Not Available Not Available No t Available buprenorphi ne 4 mg-naloxone 1 mg sublingual film active Not Available Not Available Not Available Breo Ellipta 100 mcg-25 mcg/dose powder for inhalation active Not Available Not Available N ot Available Belbuca 75 mcg buccal film active Not Available Not Available Not Available Narcan 4 mg/actuatio n nasal spray GENTLY INSERT THE TIP INTO ONE NOSTRIL AND PRESS THE PLUNGER FIRMLY; IF NO RESPONSE MAY REPEAT EVERY 2 TO 3 MINUTES IN ALTERNATE NOSTRIL active Not Available Not Available No t Available Vitals Date Recorded Oxygen saturation Oxygen saturation in Arterial blood by Pulse oximetry Heart rate Body temperature Respiratory rate Systolic blood pressure Diastolic blood pressure Provider Name and Address Organization Details Last Updated DateTime 1 97 % 97 % 54 /min 97.1 [degF] 18 /min 100 mm[Hg] 60 mm[Hg] Not Available [facility] 1 20:42:04 Date Recorded Oxygen saturation Oxygen saturation in Arterial blood by Pulse oximetry Body temperature Respiratory rate Heart rate Systolic blood pressure Diastolic blood pressure Provider Name and Address Organization Details Last Updated DateTime 1 96 % 96 % 98.9 [degF] 18 /min 52 /min 130 mm[Hg] 80 mm[Hg] Not Available [facility] 20:42:33 Date Recorded Oxygen saturation Oxygen saturation in Arterial blood by Pulse oximetry Heart rate Body temperature Respiratory rate Systolic blood pressure Diastolic blood pressure Provider Name and Address Organization Details Last Updated DateTime 2 98 % 98 % 80 /min 97.8 [degF] 16 /min 140 mm[Hg] 80 mm[Hg] Not Available [facility] 2 17:56:46 Social History Question Answer Notes LastModified by Organizat ion Details LastModified Time Tobacco Smoking Status Current Every Day Smoker Crys Woody, GIANNA [address], [place], [address], [place] [facility] 06/14/2021 20:38:21 Do You Have An Advance Directive? No Information not available 06/14/2021 What Is Your Level Of Alcohol Consumption? None Information not available 06/14/2021 What Is Your Code Status? Full Code Information not available 06/14/2021 Within The Past 12 Months, Has It Happened That The Food You Bought Just Didn't Last And You Didn't Have Money To Get More. No Information not available 06/14/2021 Within The Past 12 Months, Have You Worried That Your Food Would Run Out Before You Got Money To Buy More. No Information not available 06/14/2021 Fall Risk: Do You Feel Unsteady When Standing Or Walking? Yes Information not available 06/14/2021 We Know That How And When People Interact With Friends And Family Can Be Very Different From Person To Person. How Often Do You Have The Opportunity To See Or Talk To People That You Care About And Feel Close To? (Ex: Talking To Friends On The Phone Or Visiting Friends Or Family Or Going To Christian Or Club Meetings) 1 Or 2 Times Per Week Information not available 06/14/2021 Excessive Alcohol Or Drug Use No Information not available 06/14/2021 Does This Patient Have A PCP? Yes Information not available 06/14/2021 We Know From Many Of Our Patients That Covering All Of Their Costs Can Be Difficult At Times. This Can Cause Stress And Impact Health. In The Past Year, Have You Been Unable To Get Any Of The Following When It Was Really Needed? No Information not available 06/14/2021 What Is Your Housing Situation Today? I Have Housing Information not available 06/14/2021 Would You Like Help Connecting To Resources? None Information not available 06/14/2021 Do You Use Any Illicit Or Recreational Drugs? No Information not available 06/14/2021 How Many Years Have You Smoked Tobacco? 55 Information not available 06/14/2021 Do You Or Have You Ever Used Any Other Forms Of Tobacco Or Nicotine? No Information not available 06/14/2021 Sex: Unknown Functional Status None recorded. Mental Status None recorded. Family History Nothing Reported. Medical History Condition Response Coronary Artery Disease Y Depression N COPD Y Diabetes N Cancer N Stroke N Asthma N High Cholesterol N Pulmonary Embolism N Hypertension N Kidney Disease N Gynecological HistoryNo gynecological history recorded. Obstetrics History GPAL:G 0 P 0 0 0 0 Past Encounters Encounter ID Performer Location Encounter Start Date Encounter Closed Date Diagnosis/Indication Diagnosis SNOMED-CT Code Diagnosis ICD10 Code [id number] FEDERICO ANDERSON NP [facility] [address] [place] [address] 03/13/2021 20:12:42 03/17/2021 17:32:37 Pain in right knee 7396129791 04539 M25.561 [id number] Crys Woody NP [facility] [address] [place] [address] 06/14/2021 20:32:34 06/15/2021 14:08:15 Pain of right elbow joint 0730097860 7991248 M25.521 Edema of elbow 821026389 R60.0 Tear of skin 802054698 T 14.8XXA Pain in elbow 44445901 M 25.521 [id number] Stephie Lora NP [facility] [address] [place] [address] 08/08/2022 17:20:49 08/11/2022 06:07:43 Contact dermatitis 66294542 L25.9 Health Concerns Section Related Observation LastModified by Organization Anay sheffield LastModified Time None Recorded Concern Status LastModified by Organization Details LastModified Time None Recorded Advance Directives Directive N: Payers Encounter Date Sequence Insurance Name Policy Number Policy Samuel Covered Member ID Samuel Member ID Guarantor Name 03/13/2021 1 [facility] PLAN (MEDICARE REPLACEMENT HMO) Yamileth Sandoval [id number] Yamileth Sandoval 06/14/2021 1 [facility] PLAN (MEDICARE REPLACEMENT HMO) Yamileth Sandoval [id number] Yamileth Sandoval 08/08/2022 1 [facility] [employer] (MEDICARE REPLACEMENT PPO) Yamileth Sandoval [id number] Yamileth Sandoval Notes Date Note Type Note Provider Name and Address Organization Details Recorded Time 03/13/2021 text/html Patient with PMH of HFpEF (Grade III), paroxysmal AF, right-sided AT, COPD (current smoker), pulmonary HTN (mild - 45-50mHg), neurodermatitis , scoliosis, OA of hip, anxiety & depression, HCV, infection, alcohol induced pancreatitis and chronic pain syndrome and chronic right knee pain c/o increased pain to the right knee for the past 4 days. Denies recent injury but reports she was recently treated for infection of a bump on the right knee that was leaking drainage. Completed course of doxycycline 2 or 3 days ago and continues to apply topical mupirocin. Reports the drainage stopped but not sure if still infected. Pain continuous with minimal increase with weight bearing or ambulation. Reports some stiffness at times. No fever or chills. No pain to right calf or RLE. No weakness, numbness or tingling to right lower extremity. Had previous arthroscopy by Dr Harvey, ortho, in 2010 of the right knee but not sure what the problem was. She reports that when she was seen for her right knee pain the previous week, that she was sent for xrays as well but is not sure what they showed. She has follow up appt with her PCP, Dr Angelo on March 18 but reports the pain is too much for her and is requesting something for her pain.: State that she also has pain in her hips from arthritis, back from scoliosis and scalp and skin on her back from the neurodermatitis. Patient is currently taking oxycodone prescribed by Dr Price at [facility] who manages her chronic pain and has buprenorphine which she reports made her break out in hives an which she has but no longer takes. States she needs something else to handle the pain or I will go out nd use heroine. 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 Patient states that Dr Price told her she needs to get off the oxycodone and is planning to reduce her dosage. In discussion with patient advised that the medication she is on is a strong medication and one that is typically prescribed by one provider for safety reasons. Reviewed other options for pain management. Discussed that she is currently on blood thinner so avoidance of NSAIDs is advised. Suggested topical lidocaine patches or cream but patient reports she tried this in the past and it did nothing for her pain. She states that capsaicin cream has worked in the past but that it was strong so only a weak strength was comfortable. FEDERICO ANDERSON NP [address], [place], [address], [place] [facility] 03/14/2021 18:03:41 06/14/2021 text/html Patient is a 75 year old alert female who is known to and new to this provider. Patient chief complaint is right elbow pain after falling up the stairs this past Tuesday (2 days ago). Patient denies hitting her head, denies LOC. Patient states, I made my own sling, the pain was 10 out 10, pain tonight is 5/10. I was unable to change my clothes for 2 days or change my cat's litterbox. Patient medical history significant for AFIB, COPD, neurodermatitis, OA, falls, opioid dependence. Crys Woody, GIANNA [address], [place], [address], [place] [facility] 06/16/2021 09:54:30 08/08/2022 text/html [id number] YO F patient established with however new to . Per patient she has neuro dermatitis x 13 years and is experiencing a flare up, she has an appointment with neuro on August 17 and needs pain medication Tylenol with Codeine refill until she is seen by specialist. States she had the flare up about a week ago and was told by I don't know the name of the doctor that she has shingles. Rash is to occipital area and mid upper forehead. Describes pain like someone is stabbing me . She was prescribed Pregablin by PCP , which patient states upsets her stomach. She admits to being on chronic narcotic use. Suboxone was prescribed however she sustained an allergic reaction. Stephie Lora NP [address], [place], [address], [place] [facility] 08/10/2022 14:14:18 OBGyn Episode No OBEpisode recorded.
== END 2024-09-21 09:43 | disposition home or self-care (01) ==
PROVIDERS: PCP Internal Medicine; Visit Provider Nurse Practitioner Psychiatric/Mental Health
DX: F11.21 Opioid dependence, in remission (principal); F10.20 Alcohol dependence, uncomplicated
CPT/HCPCS: 99213

== ENCOUNTER → 2024-09-21 09:21 | Outpatient (BNVA) | payer MEDICARE, SELFPAY | PROVIDERS: PCP Internal Medicine; Visit Provider Nurse Practitioner Psychiatric/Mental Health | DX: F11.90 Opioid use, unspecified, uncomplicated (principal); F10.20 Alcohol dependence, uncomplicated ==

== ENCOUNTER → 2024-09-24 23:59 | Outpatient (BNV) | payer MEDICARE, SELFPAY ==
--- NOTE | 2024-09-26 15:21 | A.OFFVIS_ITS ---
Intake Visit Reasons: Remote device check- medtronic Allergies succinylcholine [SUCCINYLCHOLINE] Allergy (Severe, Verified 08/29/24 14:29) EXCESSIVE PARALYSIS tramadol Allergy (Intermediate, Verified 08/29/24 14:29) diarrhea, upset stomach cat dander [CATS] Allergy (Mild, Verified 08/29/24 14:29) UNKNOWN dog dander [DOGS] Allergy (Mild, Verified 08/29/24 14:29) UNKNOWN pollen extracts [POLLEN] Allergy (Mild, Verified 08/29/24 14:29) UNKNOWN gabapentin Adverse Reaction (Mild, Verified 08/29/24 14:29) Nausea and Vomiting DUST Allergy (Mild, Uncoded 08/29/24 14:29) UNKNOWN [facility] Medical History Rheumatoid arthritis Upper respiratory tract infection Skin lesion of face Skin abscess Hospital discharge follow-up Laceration of elbow, right Contusion of elbow, right Right knee skin infection Knee pain Pacemaker Sinus pause Opioid use disorder COPD with acute exacerbation COPD (chronic obstructive pulmonary disease) Left knee pain Paroxysmal atrial fibrillation Knee pain Abdominal pain Smoker Neurodermatitis COPD exacerbation Scalp abscess Vaginal discharge Skin lesion Osteoarthritis of thoracic spine Anxiety Surgical History History of basal cell carcinoma (BCC) excision Mammogram declined History of bilateral cataract extraction History of ectopic History of hip replacement History of nasal surgery Family History Father No problems noted. Mother No problems noted. Social History Household Members: None Housing: Apartment Do you presently have visiting nurse or other home services: No Alcohol intake: former Patient Tobacco Use Status: Current everyday Tobacco user Tobacco use type: Cigarette Cigarettes Per Day: 6 Years Smoked: 50 e-Cigarette/Vaping Use: Never Used Second Hand Smoke Exposure: Yes service: No Current occupational status: retired and disabled Cognitive needs: Yes Hearing needs: No Vision needs: No Office Procedures Cardiac Device Check Cardiac Device Check Details: Remote pacemaker report generated 09/24/2024. No episodes of atrial fibrillation noted. Pacemaker function is adequate [id number] Cardiac Device Interrogation, pacemaker Procedure code (CPT) selection complete Assessment & Plan Assessment & Plan (1) Pacemaker: Comment: Medtronic dual-chamber pacemaker placement 12/07/2021 Code(s): Z95.0 - Presence of cardiac pacemaker Category: Medical Plan: See above Coding Level of Care Code Procedure Only Diagnoses Pacemaker Z95.0 CPT Codes Cardiac Device Check - Cardiac Device 12: [id number] Cardiac Device Interrogation, pacemaker ([id number])
== END ==
PROVIDERS: PCP Internal Medicine; Visit Provider Internal Medicine Cardiovascular Disease
DX: Z45.018 Encounter for adjustment and management of other part of cardiac pacemaker (principal)
CPT/HCPCS: 93294

== ENCOUNTER 2024-10-04 11:03 | Outpatient (AMB) | payer MEDICARE, SELFPAY ==
--- NOTE | 2024-10-04 11:25 | MHC.OFFVIS ---
Vital Signs 10/04/24 11:32 Height 5 ft 5 in Weight 104 lb BMI 17.3 BP 143/71 H Blood Pressure Location Rt brachial Position Sitting Pulse 88 Intake Visit Reasons: hernia repair discussed Intake Note: Patient here to discuss hernia repair surgery. Reports no changes in medical hx since last visit. Patient c/o: abdominal pain. States I'm ready to have surgery. Veterinary Medical Officer Required: No Accompanied by: Daughter Allergies succinylcholine [SUCCINYLCHOLINE] Allergy (Severe, Verified 10/05/24 12:55) EXCESSIVE PARALYSIS tramadol Allergy (Intermediate, Verified 10/05/24 12:55) diarrhea, upset stomach cat dander [CATS] Allergy (Mild, Verified 10/05/24 12:55) UNKNOWN dog dander [DOGS] Allergy (Mild, Verified 10/05/24 12:55) UNKNOWN pollen extracts [POLLEN] Allergy (Mild, Verified 10/05/24 12:55) UNKNOWN gabapentin Adverse Reaction (Mild, Verified 10/05/24 12:55) Nausea and Vomiting DUST Allergy (Mild, Uncoded 10/05/24 12:55) UNKNOWN HPI HPI hernia repair discussed: Details: 79-year-old female with multiple medical problems including COPD, and has a pacemaker, here for follow-up for a left groin hernia. I had been following her in the office because of this reducible hernia. She says that she has been noticing this reducible mass on the left groin. This causes some discomfort. She does not really state how long she has noticed this. She has known history of heavy smoking and she has COPD. She does not use O2 supplementation at this time. She also describes chronic back pain and asked for oxycodone for this. She says that she has had a hard time to get this prescription from her primary care physician. When I saw her in 12/06/2023, she stated that she did not want to proceed with repair because of her overall medical condition. She actually has had multiple visits with me here in the office to schedule this but she had always postpone this. She also has missed several appointments. She now wants to schedule this again. She describes discomfort on the area. [facility] Medical History Rheumatoid arthritis Upper respiratory tract infection Skin lesion of face Skin abscess Hospital discharge follow-up Laceration of elbow, right Contusion of elbow, right Right knee skin infection Knee pain Pacemaker Sinus pause Opioid use disorder COPD with acute exacerbation COPD (chronic obstructive pulmonary disease) Left knee pain Paroxysmal atrial fibrillation Knee pain Abdominal pain Smoker Neurodermatitis COPD exacerbation Scalp abscess Vaginal discharge Skin lesion Osteoarthritis of thoracic spine Anxiety Surgical History History of basal cell carcinoma (BCC) excision Mammogram declined History of bilateral cataract extraction History of ectopic History of hip replacement History of nasal surgery Family History Father No problems noted. Mother No problems noted. Social History Household Members: None Housing: Apartment Do you presently have visiting nurse or other home services: No Alcohol intake: former Patient Tobacco Use Status: Current everyday Tobacco user Tobacco use type: Cigarette Cigarettes Per Day: 6 Years Smoked: 50 e-Cigarette/Vaping Use: Never Used Second Hand Smoke Exposure: Yes service: No Current occupational status: retired and disabled Cognitive needs: Yes Hearing needs: No Vision needs: No Review of Systems Const Denies chills and Denies fever(s) Card Denies chest pain, Denies dyspnea and Reports dyspnea on exertion Resp Denies cough, Denies dyspnea and Reports dyspnea on exertion GI Denies hematochezia and Denies change in bowel habits Denies hematuria Musc Reports abnormal gait, Reports back pain, Reports arthralgias and Reports limited range of motion Neuro Reports abnormal gait, Denies focal weakness and Denies convulsions Psych Denies depression and Denies mood swings Physical Exam Vital Signs: Last Vital Signs Pulse 88 10/04/24 11:32 BP 143/71 H 10/04/24 11:32 BMI result Body Mass Index 17.3 Const Other: Uses a cane General: comfortable and no acute distress Orientation/consciousness: patient oriented x3 Neck Neck: Yes no lymphadenopathy Resp Auscultation: clear to auscultation bilaterally Cardio Rhythm: regular rhythm GI Other: Palpable hernia, left groin on Valsalva Palpation (GI): Soft to palpation, nontender and no guarding Neuro General: patient oriented x3 Assessment & Plan Assessment & Plan (1) Left inguinal hernia: Code(s): K40.90 - Unilateral inguinal hernia, without obstruction or gangrene, not specified as recurrent Category: Medical Plan: She is here again to schedule for left inguinal hernia repair. She had canceled this a few times already. I reviewed with her the the technique of repair of the left inguinal hernia with mesh. I reviewed the risks including but not limited to bleeding, infections, injury to other organs including bowel, recurrence, postop pain, heart attack, pneumonia, blood clots, as well as the benefits and alternatives. She does have multiple medical problems including COPD and history of cardiomyopathy. She understands that we therefore presents with significant perioperative risks. I will therefore have her seen by her primary care physician as well as for preadmission testing. She says she has already seen her clinical director and senior telecommunications specialist in she says that she was told she can proceed with left inguinal hernia repair. Her daughter was with her during the visit. I also explained to the patient what expect postoperatively. Coding Level of Care Code Est Pt Level 4 (43814) Diagnoses Left inguinal hernia K40.90
[2024-10-04 11:32] VITALS: BP 143/71; PULSE 88; BMI 17.3
== END 2024-10-04 11:52 | disposition home or self-care (01) ==
PROVIDERS: PCP Internal Medicine; Visit Provider Surgery
DX: K40.90 Unilateral inguinal hernia, without obstruction or gangrene, not specified as recurrent (principal)
CPT/HCPCS: 99214

== ENCOUNTER → 2024-10-04 11:03 | Outpatient (BNVA) | payer MEDICARE, SELFPAY | PROVIDERS: PCP Internal Medicine; Visit Provider Surgery | DX: K40.90 Unilateral inguinal hernia, without obstruction or gangrene, not specified as recurrent (principal) | CPT/HCPCS: 99212 ==

== ENCOUNTER 2024-10-05 12:23 | Outpatient (AMB) | payer MEDICARE, SELFPAY ==
[2024-10-05 12:50] VITALS: BP 140/84; PULSE 69; O2SAT 96
--- NOTE | 2024-10-05 12:50 | MHC.OFFWIV ---
Intake Vital Signs 10/05/24 12:50 Weight 107 lb BP 140/84 H Blood Pressure Location Lt brachial Position Sitting Pulse 69 Pulse Source Pulse Oximeter Pulse Oximetry (%) 96 Oxygen Delivery Method Room Air Intake Visit Reasons: EP Sinus pressure/pain Intake Note: Patient here for sinus pressure that has been present for about 1 week. Patient Tobacco Use Status: Current everyday Tobacco user Allergies succinylcholine [SUCCINYLCHOLINE] Allergy (Severe, Verified 10/05/24 12:55) EXCESSIVE PARALYSIS tramadol Allergy (Intermediate, Verified 10/05/24 12:55) diarrhea, upset stomach cat dander [CATS] Allergy (Mild, Verified 10/05/24 12:55) UNKNOWN dog dander [DOGS] Allergy (Mild, Verified 10/05/24 12:55) UNKNOWN pollen extracts [POLLEN] Allergy (Mild, Verified 10/05/24 12:55) UNKNOWN gabapentin Adverse Reaction (Mild, Verified 10/05/24 12:55) Nausea and Vomiting DUST Allergy (Mild, Uncoded 10/05/24 12:55) UNKNOWN Do you need a note to return to daycare/school/sports/work: No HPI HPI Comments History of Present Illness Details She presents to office with sinus complaint Had antibiotic in july and sinus issues improved + sinus pressure, congestion, eyes burning, body aches Worsening x this week and started > 1 week ago No fever or chllls She denies ear pain Pain level is 7/10 in maxillary sinuses No cough, SOB, CP Minimal ST this am She has not taken any medicine for symptoms PFSH Medical History Rheumatoid arthritis Upper respiratory tract infection Skin lesion of face Skin abscess Hospital discharge follow-up Laceration of elbow, right Contusion of elbow, right Right knee skin infection Knee pain Pacemaker Sinus pause Opioid use disorder COPD with acute exacerbation COPD (chronic obstructive pulmonary disease) Left knee pain Paroxysmal atrial fibrillation Knee pain Abdominal pain Smoker Neurodermatitis COPD exacerbation Scalp abscess Vaginal discharge Skin lesion Osteoarthritis of thoracic spine Anxiety Surgical History History of basal cell carcinoma (BCC) excision Mammogram declined History of bilateral cataract extraction History of ectopic History of hip replacement History of nasal surgery Family History Father No problems noted. Mother No problems noted. Social History Household Members: None Housing: Apartment Do you presently have visiting nurse or other home services: No Alcohol intake: former Patient Tobacco Use Status: Current everyday Tobacco user Tobacco use type: Cigarette Cigarettes Per Day: 6 Years Smoked: 50 e-Cigarette/Vaping Use: Never Used Second Hand Smoke Exposure: Yes service: No Current occupational status: retired and disabled Cognitive needs: Yes Hearing needs: No Vision needs: No Review of Systems Const Denies chills, Reports fatigue, Denies fever(s) and Denies headache(s) Eyes Denies change in vision and Reports irritation ENT Denies dizziness, Denies otalgia, Denies headache(s), Reports nasal congestion, Reports sinus pain, Reports sinus pressure and Reports sore throat Card Denies chest pain, Denies syncope and Denies dyspnea Resp Denies cough and Denies dyspnea Neuro Denies dizziness, Denies syncope and Denies headache(s) Endo Reports fatigue Physical Exam Vital Signs: Last Vital Signs Pulse 69 10/05/24 12:50 BP 140/84 H 10/05/24 12:50 Pulse Ox 96 10/05/24 12:50 Oxygen Delivery Method Room Air 10/05/24 12:50 General: Non-toxic, NAD. Speaking full sentences. Skin: Warm dry throughout Eye: EOMI HENT: Airway patent. Uvula midline. No pharyngeal erythema or edema. No [employer]. + edematous nasal turbinates with sinus tenderness to palpation to maxillary region bilaterally. Bilateral canals clear. TM non-erythematous, non-bulging. No TM perforation or hemotympanum noted. Respiratory: CTA bilaterally. No wheezes, rales or rhonchi Cardiac: RRR. No murmur Neurology: Alert. No aphasia or facial droop. Gait without abnormality Psych: Good mood and affect Assessment & Plan Assessment & Plan (1) Sinus infection: Code(s): J32.9 - Chronic sinusitis, unspecified Qualifiers: Sinusitis location: maxillary Chronicity: acute Recurrence: non-recurrent Qualified Code(s): J01.00 - Acute maxillary sinusitis, unspecified Plan: Pt seen and evaluated Augmentin for sinuses F/U with PCP Call with concerns Pt expressed verbal understanding and had no additional questions at time of discharge Medications: New amoxicillin-pot clavulanate 875-125 mg 1 tab PO BID 14 tabs 0RF Coding Level of Care Code Est Pt Level 3 (60742) Diagnoses Acute non-recurrent maxillary sinusitis J01.00 Sinusitis location: maxillary Chronicity: acute Recurrence: non-recurrent
== END 2024-10-05 13:56 | disposition home or self-care (01) ==
PROVIDERS: PCP Internal Medicine; Visit Provider Physician Assistant
DX: J01.00 Acute maxillary sinusitis, unspecified (principal)

== ENCOUNTER → 2024-10-05 12:23 | Outpatient (BNVA) | payer MEDICARE, SELFPAY | PROVIDERS: PCP Internal Medicine; Visit Provider Physician Assistant | DX: J01.00 Acute maxillary sinusitis, unspecified (principal) | CPT/HCPCS: 99212 ==

== ENCOUNTER 2024-10-23 16:21 | Outpatient (AMB) | payer MEDICARE, SELFPAY ==
--- NOTE | 2024-10-23 16:39 | MHC.PC.OV ---
Vital Signs 10/23/24 16:40 Height 5 ft 5 in Weight 103 lb BMI 17.1 BP 112/80 Blood Pressure Location Lt brachial Position Sitting Intake Visit Reasons: pre-op hernia Procurement Manager Required: No Accompanied by: Self / Same As Patient Allergies succinylcholine [SUCCINYLCHOLINE] Allergy (Severe, Verified 10/23/24 17:02) EXCESSIVE PARALYSIS tramadol Allergy (Intermediate, Verified 10/23/24 17:02) diarrhea, upset stomach cat dander [CATS] Allergy (Mild, Verified 10/23/24 17:02) UNKNOWN dog dander [DOGS] Allergy (Mild, Verified 10/23/24 17:02) UNKNOWN pollen extracts [POLLEN] Allergy (Mild, Verified 10/23/24 17:02) UNKNOWN gabapentin Adverse Reaction (Mild, Verified 10/23/24 17:02) Nausea and Vomiting DUST Allergy (Mild, Uncoded 10/23/24 17:02) UNKNOWN Medication List - Last Reconciled 10/23/24 by Fany Meza MD alprazolam 0.25 mg PO TID amlodipine 5 mg PO DAILY 4 days buprenorphine-naloxone 2-0.5 mg 1 film sublingual DAILY buspirone 10 mg PO BID flecainide 100 mg PO Q12H fluticasone furoate-vilanterol 100-25 mcg/dose (Breo Ellipta) 1 inh inhalation DAILY ketoconazole 2% 1 appl topical 2XW 30 days lisinopril 20 mg PO DAILY 90 days mupirocin calcium 2% 1 appl topical BID 30 days propranolol ER 60 mg PO DAILY rivaroxaban (Xarelto) 20 mg PO DAILY tiotropium bromide (Spiriva with HandiHaler) 1 cap inhalation DAILY Tobacco use date assessed: 10/23/24 Fall risk assessment: No Falls in past year Last assessed Fall Risk: 10/23/24 Dental Screening Dental Screen Date: 10/23/24 Did you have a dental visit in the last 12 months?: No Did you have a dental problem in the last 6 months where you did not have access to dental care?: No Was dental information given to patient?: Patient has dentist HPI HPI Comments History of Present Illness Details The patient is a 79-year-old female presenting for preop for left inguinal hernia repair. The hernia has progressively enlarged and is currently prominent when the patient stands, although it flattens when she lies down. The patient has noted increased discomfort and is concerned about its size. A possible surgical intervention is hindered by existing comorbidities, particularly related to chronic obstructive pulmonary disease and concerns regarding general anesthesia. The patient is also worried about potential bleeding associated with her concurrent anticoagulant therapy. Recent medical history reveals the patient underwent treatment for basal cell carcinoma on the head, and management of actinic keratosis is planned with liquid nitrogen therapy, currently postponed due to anticoagulation concerns. She also has hypertension and cardiomyopathy. She has dyspnea on exertion and preop will be deferred to pulmonology. She also complains of wheezing frequently. Blood pressure stable. Cardiomyopathy is follow by cardiology and has not gain 5 lb in a week. She still a smoker and was advised to quit. She also has opioid use disorder follow by [facility] and has alcohol use disorder and as per patient stopped drinking around June of last year. She also has atrial fibrillation follow by cardiology. [facility] Medical History (Updated 10/23/24 @ 20:36 by Fany Meza MD) Rheumatoid arthritis Upper respiratory tract infection Skin lesion of face Skin abscess Hospital discharge follow-up Laceration of elbow, right Contusion of elbow, right Right knee skin infection Knee pain Pacemaker Sinus pause Opioid use disorder COPD with acute exacerbation COPD (chronic obstructive pulmonary disease) Left knee pain Paroxysmal atrial fibrillation Knee pain Abdominal pain Smoker Neurodermatitis COPD exacerbation Scalp abscess Vaginal discharge Skin lesion Osteoarthritis of thoracic spine Anxiety Surgical History History of basal cell carcinoma (BCC) excision Mammogram declined History of bilateral cataract extraction History of ectopic History of hip replacement History of nasal surgery Family History Father No problems noted. Mother No problems noted. Social History Household Members: None Housing: Apartment Do you presently have visiting nurse or other home services: No Alcohol intake: former Patient Tobacco Use Status: Current everyday Tobacco user Tobacco use type: Cigarette Cigarettes Per Day: 6 Years Smoked: 50 Packs per year/per ci.00 e-Cigarette/Vaping Use: Never Used Second Hand Smoke Exposure: Yes service: No Current occupational status: retired and disabled Cognitive needs: Yes Hearing needs: No Vision needs: No Questionnaire PHQ-9 Over the last 2 weeks, how often have you been bothered by any of the following problems? 1. Little interest or pleasure in doing things: several days 2. Feeling down, depressed, or hopeless: several days 3. Trouble falling or staying asleep, or sleeping too much: nearly every day 4. Feeling tired or having little energy: nearly every day 5. Poor appetite or overeating: not at all 6. Feeling bad about yourself - or that you are a failure or have let yourself or your family down: several days 7. Trouble concentrating on things, such as reading the newspaper or watching television: not at all 8. Moving or speaking so slowly that other people could have noticed. Or the opposite - being so fidgety or restless that you have been moving around a lot more than usual: not at all 9. Thoughts that you would be better off or of hurting yourself in some way: not at all Total score: 9 Depression Screening Interpretation: Positive Depression Screening Follow-up: Existing condition, In treatment, Follow-up Visit Requested and Declines treatment Depression Screening Done: Yes 68207 - PHQ-9 Billing: Yes Source: Developed by Drs. Dane Lindsey, Lynn Peña, Jose Vivas and colleagues, with an educational afsaneh from [employer]. Thrive Questionnaire Date Thrive assessed: 10/23/24 I am a: Patient What is your living situation today?: I have a steady place to live Within the past 12 months, did the food you bought not last and you didn't have the money to get more?: Never true Within the past 12 months, did you worry whether your food would run out before you got money to buy more?: Never true Do you have trouble paying for medicines?: No Do you have trouble getting transportation to medical appointments?: No Do you have trouble paying your heating and electricity bill?: No Do you have trouble taking care of your child, family member or friend?: No Do you have trouble with day-to-day activities such as bathing, preparing meals, shopping, managing finances, etc.?: No Are you currently unemployed and looking for a job?: No Are you interested in more education?: No Please select the resources that you would like help with: None Currently or been in a relationship where the following occur: No concerns reported THRIVE Score: 0 AUDIT C Alcohol Use Questionnaire (AUDIT-C) 1. How often do you have a drink containing alcohol?: Never Total Score: 0 Score Reviewed/Action Taken: No GORGE-7 AMB Questionnaire GORGE-7 Date GORGE - 7 assessed: 10/23/24 Feeling nervous, anxious, or on edge: 1 = Several days Not being able to stop or control worryin = Not at all Worrying too much about different things: 1 = Several days Trouble relaxin = Several days Being so restless that it is hard to sit still: 0 = Not at all Becoming easily annoyed or irritable: 1 = Several days Feeling afraid as if something awful might happen: 1 = Several days Total GORGE-7 score (0-4 normal; 5-9 mild; 10-14 moderate; 15-21 severe): 5 Source: Developed by Drs. Dane Lindsey, Lynn Peña, Jose Vivas and colleagues, with an educational afsaneh from [employer]. GORGE-7 Assessment Billing GORGE-7 Assessment Tool: GORGE-7 Assessment 55092 Review of Systems Const All systems reviewed & are unremarkable except as noted in HPI and below Card Denies chest pain at rest, Denies chest pain with activity, Denies edema, Denies irregular heart rhythm, Denies claudication, Denies dyspnea, Denies dyspnea on exertion, Denies orthopnea, Denies paroxysmal nocturnal dyspnea and Denies slow heart rate Resp Denies cough, Denies dyspnea and Denies dyspnea on exertion GI Denies abdominal pain, Denies change in bowel habits, Denies excessive flatus, Denies nausea and Denies vomiting Physical exam (Primary Care) Vital Signs: Last Vital Signs BP 112/80 10/23/24 16:40 BMI result Body Mass Index 17.1 Tobacco/Smoking Status: Tobacco use Status Tobacco use date assessed 10/23/24 10/23/24 16:47 Patient Tobacco Use Status Current everyday Tobacco 10/23/24 16:47 Tobacco use type Cigarette 10/23/24 16:47 e-Cigarette/Vaping Use Never Used 10/23/24 16:47 Are you ready to quit: No Tobacco cessation counseling provided: Yes Items discussed: Nicotine replacement Relapse Prevention: discussed the importance of a supportive environment, discussed extending NRT, discussed negative mood or depression after quitting, weight gain after smoking is common and discussed dietary, exercise and/or lifestyle changes Number of minutes spent counselin CPT code: 23298 - 4-10 Minutes PHQ-9: PHQ-9 Score PHQ-9: Total score 9 10/23/24 17:44 Depression Screening Interpretation: Positive Depression Screening Follow-up: Existing condition, In treatment, Follow-up Visit Requested and Declines treatment Thrive Assessment: Date of Thrive Assessment Date Thrive assessed 10/23/24 10/23/24 16:47 Currently or been in a relationship where the following occur: No concerns reported Resp Effort & Inspection: normal respiratory effort Auscultation: clear to auscultation bilaterally Cardio Jugular venous distension: no JVD Rate: regular rate Rhythm: regular rhythm Heart sounds: S1 normal heart sound present and S2 normal heart sound present GI Palpation (GI): Hernia present direct inguinal Extrem General: Yes full ROM Office Procedures Flu Questionnaire Does the patient have a severe egg allergy?: No Immunizations Fluarix Triv [id number] (PF) 45 mcg (15 mcg x 3)/0.5 mL IM syringe Performing Provider: Fany Meza MD [facility] [place] Documented (not given) by: BERTHA Lopes on 10/23/24 17:45 Reason Not Given: Patient Refused Coding Level of Care Code Est Pt Level 4 (13396) Complex EM visit Add On G2211 Diagnoses Pre-op evaluation Z01.818 Actinic keratoses L57.0 Opioid use disorder, moderate, in early remission, on maintenance therapy, dependence F11.21 Essential hypertension I10 Cardiomyopathy, unspecified type I42.9 Cardiomyopathy type: unspecified Alcohol use disorder, moderate, dependence F10.20 Chronic obstructive pulmonary disease, unspecified COPD type J44.9 COPD type: unspecified COPD Paroxysmal atrial fibrillation I48.0 Additional Codes GORGE-7 Assessment Billing - GORGE-7 Assessment Tool: GORGE-7 Assessment 21018 ([id number]) PHQ-9 - 18870 - PHQ-9 Billing: Yes ([id number]) Vital Signs *Quality* - CPT code: 62746 - 4-10 Minutes ([id number]) Time Spent (min) 25 Assessment & Plan Assessment & Plan (1) Pre-op evaluation: Code(s): Z01.818 - Encounter for other preprocedural examination Category: Medical Plan: EKG and labs ordered. Preop deferred to pulmonology. (2) Actinic keratoses: Code(s): L57.0 - Actinic keratosis Category: Medical Plan: Referred to a new associate loan officer as per patient's wishes. (3) Opioid use disorder, moderate, in early remission, on maintenance therapy, dependence: Code(s): F11.21 - Opioid dependence, in remission Category: Medical Plan: Follow-[facility] with [facility]. (4) Essential hypertension: Code(s): I10 - Essential (primary) hypertension Category: Medical Plan: Continue amlodipine and lisinopril. Blood pressure goal is equal or less than 130/80. (5) Cardiomyopathy: Code(s): I42.9 - Cardiomyopathy, unspecified Category: Medical Qualifiers: Cardiomyopathy type: unspecified Qualified Code(s): I42.9 - Cardiomyopathy, unspecified Plan: Follow-up with Cardiology. The goal is to not gain 5 lb in a week. (6) Alcohol use disorder, moderate, dependence: Code(s): F10.20 - Alcohol dependence, uncomplicated Category: Medical Plan: Follow-up with [facility]. (7) COPD (chronic obstructive pulmonary disease): Comment: MODERATELY SEVERE CHRONIC OBSTRUCTIVE PULMONARY DISEASE IS DEFINITELY RELATED TO HER LONG-TIME SMOKING. * STRESSED AGAIN THAT SHE MUST QUIT SMOKING COMPLETELY . HER RESPIRATORY STATUS IS VERY STABLE, LUNGS ARE CLEAR AND SHE HAS NO ACTIVE WHEEZES. Code(s): J44.9 - Chronic obstructive pulmonary disease, unspecified Category: Medical Qualifiers: COPD type: unspecified COPD Qualified Code(s): J44.9 - Chronic obstructive pulmonary disease, unspecified Plan: Continue Breo and Spiriva. Follow-up with pulmonology. (8) Paroxysmal atrial fibrillation: Comment: Status post ablation. Being maintained on antiarrhythmic with flecainide and has done very well with rhythm control approach Code(s): I48.0 - Paroxysmal atrial fibrillation Category: Medical Plan: Follow-up with Cardiology. Orders: Orders Lipid Panel Today E78.5 - Hyperlipidemia, unspecified Complete Blood Count Auto Diff Today J44.9 - Chronic obstructive pulmonary disease, unspecified ECG 12 lead EKG Today Z01.818 - Encounter for other preprocedural examination NT-proBNP Today I42.9 - Cardiomyopathy, unspecified Comprehensive [place]. Panel Fast Today I42.9 - Cardiomyopathy, unspecified Influenza [id number] Immunization Today Z23 - Encounter for immunization Referrals Dermatology Referral L57.0 - Actinic keratosis Medications: New amoxicillin-pot clavulanate 875-125 mg 1 tab PO BID 14 tabs 0RF 7 days Changed From tiotropium bromide (Spiriva with HandiHaler) puncture 1 cap using device; one dose = 2 inhalations 1 cap inhalation DAILY To tiotropium bromide (Spiriva with HandiHaler) puncture 1 cap using device; one dose = 2 inhalations 1 cap inhalation DAILY 30 inhalations 2RF 30 days Refilled mupirocin calcium 2% 1 appl topical BID 30 grams 0RF 30 days L08.9 - Local infection of the skin and subcutaneous tissue, unspecified
[2024-10-23 16:40] VITALS: BP 112/80; BMI 17.1
== END 2024-10-23 17:17 | disposition home or self-care (01) ==
PROVIDERS: PCP Internal Medicine; Visit Provider Internal Medicine
DX: Z01.818 Encounter for other preprocedural examination (principal); L57.0 Actinic keratosis; F11.21 Opioid dependence, in remission; I10 Essential (primary) hypertension; I42.9 Cardiomyopathy, unspecified; F10.20 Alcohol dependence, uncomplicated; J44.9 Chronic obstructive pulmonary disease, unspecified; I48.0 Paroxysmal atrial fibrillation; Z23 Encounter for immunization

== ENCOUNTER → 2024-10-23 16:21 | Outpatient (BNVA) | payer MEDICARE, SELFPAY | PROVIDERS: PCP Internal Medicine; Visit Provider Internal Medicine | DX: Z01.818 Encounter for other preprocedural examination (principal); I10 Essential (primary) hypertension; I42.9 Cardiomyopathy, unspecified; L57.0 Actinic keratosis; F17.210 Nicotine dependence, cigarettes, uncomplicated; F11.21 Opioid dependence, in remission; F10.20 Alcohol dependence, uncomplicated; J44.9 Chronic obstructive pulmonary disease, unspecified; I48.0 Paroxysmal atrial fibrillation; L08.9 Local infection of the skin and subcutaneous tissue, unspecified; Z28.21 Immunization not carried out because of patient refusal | CPT/HCPCS: 90471; 96127; 99212 ==

== ENCOUNTER 2024-10-26 09:01 | Outpatient (AMB) | payer MEDICARE, SELFPAY ==
--- NOTE | 2024-10-26 09:02 | A.OFFVISCC_ITS ---
Intake Visit Reasons: MAT Tele Allergies succinylcholine [SUCCINYLCHOLINE] Allergy (Severe, Verified 10/23/24 17:02) EXCESSIVE PARALYSIS tramadol Allergy (Intermediate, Verified 10/23/24 17:02) diarrhea, upset stomach cat dander [CATS] Allergy (Mild, Verified 10/23/24 17:02) UNKNOWN dog dander [DOGS] Allergy (Mild, Verified 10/23/24 17:02) UNKNOWN pollen extracts [POLLEN] Allergy (Mild, Verified 10/23/24 17:02) UNKNOWN gabapentin Adverse Reaction (Mild, Verified 10/23/24 17:02) Nausea and Vomiting DUST Allergy (Mild, Uncoded 10/23/24 17:02) UNKNOWN HPI HPI MAT Tele: Details: Patient presents for follow up via telehealth Currently prescribed Suboxone 2mg daily --taking half film BID No issues related to medication anxious about hernia surgery and not knowing when the surgery is feeling overwhelmed Review of Systems Const Reports as per HPI Telehealth Telehealth Telehealth Platform: Telephone Location of provider rendering services: practice address Location of patient: address on file Patient Identification confirmed using: Name, : Yes Telehealth method: voice only Patient verbally consented to treatment: Yes Patient verbally consented to billing insurance company: Yes Minutes spent on Phone/Video with Pt.: 15 [facility] Medical History (Updated 10/26/24 @ 09:13 by Carmen Johnson CNP) Rheumatoid arthritis Upper respiratory tract infection Skin lesion of face Skin abscess Hospital discharge follow-up Laceration of elbow, right Contusion of elbow, right Right knee skin infection Knee pain Pacemaker Sinus pause Opioid use disorder COPD with acute exacerbation COPD (chronic obstructive pulmonary disease) Left knee pain Paroxysmal atrial fibrillation Knee pain Abdominal pain Smoker Neurodermatitis COPD exacerbation Scalp abscess Vaginal discharge Skin lesion Osteoarthritis of thoracic spine Anxiety Surgical History History of basal cell carcinoma (BCC) excision Mammogram declined History of bilateral cataract extraction History of ectopic History of hip replacement History of nasal surgery Family History Father No problems noted. Mother No problems noted. Social History Household Members: None Housing: Apartment Do you presently have visiting nurse or other home services: No Alcohol intake: former Patient Tobacco Use Status: Current everyday Tobacco user Tobacco use type: Cigarette Cigarettes Per Day: 6 Years Smoked: 50 e-Cigarette/Vaping Use: Never Used Second Hand Smoke Exposure: Yes service: No Current occupational status: retired and disabled Cognitive needs: Yes Hearing needs: No Vision needs: No Assessment & Plan Assessment & Plan (1) Opioid use disorder, moderate, in early remission, on maintenance therapy, dependence: Code(s): F11.21 - Opioid dependence, in remission Category: Medical Plan: * continue suboxone at current dose * follow up one month
== END 2024-10-26 09:36 | disposition home or self-care (01) ==
PROVIDERS: PCP Internal Medicine; Visit Provider Nurse Practitioner Psychiatric/Mental Health
DX: F11.21 Opioid dependence, in remission (principal)
CPT/HCPCS: 98016

== ENCOUNTER 2024-11-02 09:47 | Outpatient (REF) | payer MEDICARE, SELFPAY ==
[2024-11-02 10:17] LABS: MANUAL DIFF FLAG NO
--- NOTE | 2024-11-02 10:19 | ECG_ITS ---
Test Reason : Z01.818 Blood Pressure : */* mmHG Vent. Rate : 79 BPM Atrial Rate : 79 BPM P-R Int : 190 ms QRS Dur : 96 ms QT Int : 424 ms P-R-T Axes : 100 66 84 degrees QTcB Int : 486 ms Atrial-paced rhythm Left ventricular hypertrophy with repolarization abnormality ( Yuan product ) Abnormal ECG When compared with ECG of 12-Jun-2024 18:44, Electronic atrial pacemaker has replaced Sinus rhythm T wave inversion no longer evident in Inferior leads Nonspecific T wave abnormality no longer evident in Anterior leads Referred By: Fany Meza Electronically Signed By: AXEL ARMSTRONG MD
[2024-11-02 10:43] LABS: Basophils Absolute Auto 0.1 X10*3/uL (0.0-0.2); Basophils Percent Auto 0.6 % (0-2); Eosinophils Absolute Auto 0.3 X10*3/uL (0.0-0.4); Eosinophils Percent Auto 3.7 % (0-4); Hematocrit 40.3 % (37.0-47.0); Hemoglobin 13.1 g/dl (12.0-16.0); Imm Gran Abs Auto 0.02 X10*3/uL (0.00-0.03); Imm Gran Pct Auto 0.2 % (0.0-0.4); Lymphocytes Absolute Auto 1.9 X10*3/uL (1.2-4.9); Lymphocytes Percent Auto 22.2 % (20-40); Mean Corpuscular HGB Conc 32.5 g/dl (31.0-35.0); Mean Corpuscular Hemoglobin 29.8 pg (27.0-33.0); Mean Corpuscular Volume 91.8 fL (80.0-98.0); Mean Platelet Volume 10.8 fL (9.4-12.3); Monocytes Absolute Auto 0.9 X10*3/uL (0.1-1.2); Monocytes Percent Auto 10.6 % (2-11); Neutrophils Absolute Auto 5.4 x10*3/uL (2.0-8.3); Neutrophils Percent Auto 62.7 % (45-73); Platelet Count 232 X10*3/uL (160-400); Red Blood Count 4.39 X10*6/uL (4.20-5.50); Red Cell Distribution Width 13.2 % (11.0-16.0); White Blood Count 8.6 X10*3/uL (4.8-10.8)
== END 2024-11-02 09:48 | disposition home or self-care (01) ==
LOC: HO.LAB 09:47
PROVIDERS: PCP Internal Medicine; Visit Provider Internal Medicine
DX: Z01.818 Encounter for other preprocedural examination (principal); J44.9 Chronic obstructive pulmonary disease, unspecified
CPT/HCPCS: 36415; 85025; 93005

== ENCOUNTER → 2024-11-02 10:19 | Outpatient (BNV) | payer MEDICARE, SELFPAY | PROVIDERS: PCP Internal Medicine; Visit Provider Internal Medicine Cardiovascular Disease | DX: R94.31 Abnormal electrocardiogram [ECG] [EKG] (principal) | CPT/HCPCS: 93010 ==

== ENCOUNTER 2024-11-21 11:22 | Outpatient (REF) | payer OTHER, SELFPAY ==
[2024-11-21 12:03] LABS: Alanine Aminotransferase 17 U/L (0-31); Albumin Level 4.1 g/dL (3.5-5.0); Alkaline Phosphatase 111 U/L (39-117); Anion Gap 9 (12-20); Aspartate Amino Transferase 29 U/L (5-31); Bilirubin Total 0.4 mg/dL (0.0-1.0); Blood Urea Nitrogen 14 mg/dL (9-16); Calcium 9.2 mg/dL (8.4-10.2); Carbon Dioxide 28 mmol/L (22-29); Chloride 107 mmol/L (96-108); Cholesterol 144 mg/dL (<200); Estimated Glomerular Filt Rate > 60; Glucose Fasting 88 mg/dL (60-99); HDL Cholesterol 59 mg/dL (>40); LDL Cholesterol Calculated 75 mg/dL (<100); Potassium 4.1 mmol/L (3.3-5.1); Sodium 140 mmol/L (135-145); Total Protein 7.5 g/dL (6.5-8.0); Triglycerides 53 mg/dL (<150)
--- OUTSIDE RECORDS SUMMARY | 2024-11-21 13:10 | XMS_ITS | Data Portability ---
Author Organization [place] [facility] Address [address] [place] [id number] Care Team Providers Care Salon Receptionist Name Role Phone JOE SHELBY Primary Care Provider [facility] OTHER REMI & WOMEN?S [facility] DERMATOLOGY OTHER Assessment Encounter Date Assessment Date [...] questions were answered prior to team departure. [email or web address] Not available 08/10/2022 14:13:30 Plan of Treatment [...] By Organization Details Last Modified Time 03/13/2021 [id number] Today you were seen for pain in [...] pain. [email or web address] Not available 03/13/2021 21:09:52 08/08/2022 [id number] rash: care instructions [email or web address] Not available 08/10/2022 14:14:03 Thank you for yo ur visit with [facility] today. We cannot always find the exact [...] in your condition between 8am-10pm, please call [facility] at [phone] to help navigate your care. Please seek [...] in your condition between 8am-10pm, please call [facility] at [phone] to help navigate your care. Not available 08/10/2022 14:12:58 Reason for Referral None Reported. Problems Name Problem SNOMED Code Status Onset Date Resolution Date Notes Provider Name and Address Organization Details Recorded Time Heart failure with normal ejection fraction 360571673 Active 2020 FEDERICO ANDERSON NP [address] [place], [address], [place] [facility] 20:24:01 Chronic obstructi ve pulmonary disease 45045740 Active 2020 FEDERICO ANDERSON NP [address] [place], [address], [place] [facility] 20:24:15 Smoker 03834900 Active 2020 FEDERICOROSALEE HERNÁNDEZRADHA, EMPLOYMENT COACH [address], [place], [address], [place] [facility] 20:24:34 Pulmonary hypertens ion 67574755 Completed 202003/13/2021 FEDERICO JUSTIN, EMPLOYMENT COACH [address], [place], [address], [place] [facility] 20:25:18 Mild pulmonary hypertens ion 176498308 Active 2020 FEDERICO JUSTIN, EMPLOYMENT COACH [address], [place], [address], [place] [facility] 20:25:34 Paroxysma l atrial fibrillat ion 989538962 Active 2020 FEDERICOFrancisco ANDERSON, EMPLOYMENT COACH [address], [place], [address], [place] [facility] 20:26:57 Scoliosis deformity of spine 122365155 Active 2020 FEDERICO JUSTIN, EMPLOYMENT COACH [address], [place], [address], [place] [facility] 16:46:51 Gastroeso phageal reflux disease 991619631 Active 2020 FEDERICOFrancisco ANDERSON, EMPLOYMENT COACH [address], [place], [address], [place] [facility] 16:47:02 Chronic hepatitis C 705943758 Completed 202003/14/2021 FEDERICOFrancisco ANDERSON, EMPLOYMENT COACH [address], [place], [address], [place] [facility] 16:47:41 Osteoarth ritis 210161032 Active 2020 FEDERICO ANDERSON, EMPLOYMENT COACH [address] [place], [address], [place] [facility] 16:48:10 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 Procedures Surgical History Date Name Laterality Status Provider Name and Address Organization Details Recorded Time prosthetic arthroplasty of the hip completed Crys Woody, GIANNA [address], [place], [address], [place] [facility] 06/14/2021 20:35:33 cardiac ablation using fluoroscopy guidance completed Crys Woody, GIANNA [address], [place], [address], [place] [facility] 06/14/2021 20:35:44 Imaging Results None recorded. Procedure Notes None recorded. Medical Equipment None Reported. Allergies Allergen ID Allergen Name Allergen Category Reaction Reaction Severity Criticality Documentation Date Start Date Code Code System Note Provider Name and Address Organization Details Recorded Time [id number] amiodaron e medicatio n Not available Not available Not available 03/14/2021 703 RxNorm FEDERICO ANDERSON, GIANNA [address], [facility] [place], [address], [place] [facility] 16:45:41 19800423 tramadol medicatio n Not available Not available Not available 03/14/2021 31337 RxNorm FEDERICO ANDERSON NP [address], [facility] [place], [address], [place] [facility] 16:45:49 236885 succinylc holine Not available Not available Not available Not available 03/14/2021 20636 RxNorm FEDERICO ANDERSON NP [address], [facility] [place], [address], [place] [facility] 16:46:00 489254 cat dander environme nt Not available Not available Not available 03/14/2021 71795 UNK FEDERICO ANDERSON, EMPLOYMENT COACH [address], [facility] [place], [address], [place] [facility] 16:46:09 841192 POLL[employer] environme nt,medica tion Not available Not available Not available 03/14/2021 46506 6 RxNorm FEDERICO ANDERSON, EMPLOYMENT COACH [address] [place], [address], [place] [facility] 16:46:24 Medications Name Sig Start Date Stop [...] 100 mm[Hg] 60 mm[Hg] Not Available [facility] 20:42:04 Date Recorded Oxygen saturation Oxygen [...] /min 140 mm[Hg] 80 mm[Hg] Not Available [facility] 2 17:56:46 Social History Question Answer Notes LastModified by Organizat ion Details LastModified Time Tobacco Smoking Status Current Every Day Smoker Crys Woody, GIANNA [address] [facility] [place], [address], [place] [facility] 06/14/2021 20:38:21 Do You [...] Visiting Friends Or Family Or Going To Jew Or Club Meetings) 1 Or 2 Times [...] History Nothing Reported. Medical History Condition Response Diabetes N Coronary Artery Disease Y High Cholesterol N Pulmonary Embolism N Cancer N Hypertension N Stroke N Asthma N COPD Y Depression N Kidney Disease N Gynecological HistoryNo gynecological history recorded. Obstetrics History GPAL:G 0 P 0 0 0 0 Past Encounters Encounter ID Performer Location Encounter Start Date Encounter Closed Date Diagnosis/Indication Diagnosis SNOMED-CT Code Diagnosis ICD10 Code Diagnosis Note [id number] FEDERICO ANDERSON NP [facility] [address] [place] [address] 03/13/2021 20:12:42 03/17/2021 17:32:37 Pain in right knee [id number] 66862 M25.561 Overview/H istory: Patient with h/o chronic pain to the right knee with arthroscop y in 2010 reports increased pain over the past 4 days. States she was treated 1 week ago for an infection of a bump on the skin over her right knee with a course of doxcycline and topical mupirocin. She had xrays but is not aware of their results. She denies any other associated symptoms at this time. Exam: On exam, patient's right knee has mild decrease in flexion and a small scab on over the lateral aspect of the right knee. Otherwise, exam is unremarkab le. Patient ambulates with limp but is able to continuous ly ambulate around apartment without assisstive device. DDx considered , but not limited to: OA, RA, effusion, septic joint, Gout, bony fracture, Ligament injury/tea r, tendinopat hy, muscle strain, knee strain, patellar tendinitis , skin abscess/pari il Work up/Results : xray previously completed but not available. Plan/Discu ssion: Reassured patient that on exam, there are no signs of infection at this time. Encouraged patient to continue with topical mupirocin to area on right knee. Also reassured patient that knee joint appears grossly normal with ability to weight bear and ambulate at this time. Discussed pain management options until she is seen by her PCP in 3 days for more definitive informatio n regarding potential causes of her increased knee pain. She agrees that over the counter topical capsaicin will help to alleviate some of her discomfort . 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 In order to obtain further informatio n and compare any laboratory results/va lues, I have accessed {{old patient records pa tient records on the [employer]* reviewed records with the PCP}}. This informatio n was pertinent in my medical decision making today. [id number] Crys Woody NP [facility] [address] [facility] [place] [address] 06/14/2021 20:32:34 06/15/2021 14:08:15 Pain of right elbow joint [id number] 1387676 M25.521 Edema of elbow 768960213 R60.0 Overview/H istory: Patient is a 75 year old alert female who presents with trauma/def ormity to her right elbow after sustaining a fall going up her apartment stairs this past Tuesday. She has not had the elbow evaluated, but did attempt to make a sling with an Joseph bandage she had in her apartment. Patient medical history significan t OA, AFIB, COPD, neuro dermatitis , Falls. Patient is presently weaning from oxycodone 10 mg 4 x a day initially prescribed for her OA. she was taking 60 mg Q day previously . She has a pending pain clinic consultati on. Exam: Afebrile 98.9. HRR, bradycardi c 52, S1, S2. LSCTA bilaterall y, no work of breathing. Abdomen SNT, +BS x 4 quadrants. No CVA tenderness . Trauma and deformity noted to right elbow. Intact neuro exam. Skin tear to right elbow, scant amount blood. DDx considered , but not limited to:Right elbow fracture likely given deformity, painSeptic elbow cannot be ruled, out, +calorFore ign body considered , cannot rule out, trauma Work up/Results :Exam Plan/Discu ssion: Patient keon agrees to escort patient to [place] ER for ARTURO evaluation of probable fracture given her level of pain and inability to complete self care. [facility] ED called and report provided. Right elbow skin tear dressing changed, sling applied for comfort and to immobilize . Proper Personal Protective Equipment (PPE), including {{gloves, eye protection , masks, and gowns, shoe covers kennedy ves, eye protection and masks* kennedy ves, eye protection gloves, eye protection , N95 mask, gown, and shoe covers laquita gical mask with face-shiel d, gloves, gown and shoe covers laquita gical mask with face-shiel d, gloves}} were donned and doffed ignacio olvera and all equipment cleaned using approved technique with germicidal disposable wipes prior to and after care of this patient according to [facility]'s infection prevention protocols. In order to obtain further informatio n and compare any laboratory results/va lues, I have accessed {{old patient records* p atient records on the [employer] r eviewed records with the PCP}}. This informatio n was pertinent in my medical decision making today. Tear of skin 841210031 T 14.8XXA Pain in elbow 97521418 M 25.521 [id number] April GIANNA [facility] [address] [facility] [place] [address] 08/08/2022 17:20:49 08/11/2022 06:07:43 Contact dermatitis 64350360 L25.9 Health Concerns Section Related Observation LastModified by Organization Detai ls LastModified Time None Recorded Concern Status LastModified by Organization Details LastModified Time None Recorded Advance Directives Directive N: Payers Encounter Date Sequence Insurance Name Policy Number Policy Samuel Covered Member ID Samuel Member ID Guarantor Name 03/13/2021 1 [facility] (MEDICARE REPLACEMENT HMO) Yamileth Sandoval [id number] Yamileth Pembertongianni 06/14/2021 1 [facility] (MEDICARE REPLACEMENT HMO) Yamileth Pembertongianni [id number] Yamileth Pembertongianni 08/08/2022 1 [facility] (MEDICARE REPLACEMENT PPO) Yamileth Pembertongianni [id number] Yamileth Sandoval Notes Date Note Type Note [...] right lower extremity. Had previous arthroscopy by manuel Lozano, in 2010 of the right knee but [...] taking oxycodone prescribed by Dr Price at [facility] who manages her chronic pain and has [...] only a weak strength was comfortable. FEDERICO ANDERSON, GIANNA [address], [place], [address], [place] [facility] 03/14/2021 18:03:41 06/14/2021 text/html Patient is [...] COPD, neurodermatitis, OA, falls, opioid dependence. Crys Woody NP [address], [place], [address], [place] [facility] 06/16/2021 09:54:30 08/08/2022 text/html 77 YO F patient established with however new to . Per patient she has neuro dermatitis x 13 years and is experiencing a flare up, she has an appointment with [facility] on August 17 and needs pain medication [...] reaction. Stephie Lora NP [address], [place], [address], [place] [facility] 08/10/2022 14:14:18 OBGyn Episode No OBEpisode recorded.
[2024-11-25 21:33] LABS: NT-proBNP 768 pg/mL (<450)
== END 2024-11-21 11:23 | disposition home or self-care (01) ==
LOC: HO.LAB 11:22
PROVIDERS: PCP Internal Medicine; Visit Provider Internal Medicine
DX: E78.5 Hyperlipidemia, unspecified (principal); I42.9 Cardiomyopathy, unspecified
CPT/HCPCS: 36415; 80053; 80061; 83880

== ENCOUNTER 2024-11-23 09:09 | Outpatient (AMB) | payer MEDICARE, SELFPAY ==
--- NOTE | 2024-11-23 09:09 | A.OFFVISCC_ITS ---
Intake Visit Reasons: MAT Tele Allergies succinylcholine [SUCCINYLCHOLINE] Allergy (Severe, Verified 10/23/24 17:02) EXCESSIVE PARALYSIS tramadol Allergy (Intermediate, Verified 10/23/24 17:02) diarrhea, upset stomach cat dander [CATS] Allergy (Mild, Verified 10/23/24 17:02) UNKNOWN dog dander [DOGS] Allergy (Mild, Verified 10/23/24 17:02) UNKNOWN pollen extracts [POLLEN] Allergy (Mild, Verified 10/23/24 17:02) UNKNOWN gabapentin Adverse Reaction (Mild, Verified 10/23/24 17:02) Nausea and Vomiting DUST Allergy (Mild, Uncoded 10/23/24 17:02) UNKNOWN HPI HPI MAT Tele: Details: Patient presents for follow up via telehealth Currently prescribed Suboxone 2mg daily Tolerating current dose Continues to abstain from alcohol Reports she recently ruptured her ear drum--awaiting appt at ENT provider No updates on surgery for her hernia Review of Systems Const Reports as per HPI Telehealth Telehealth Telehealth Platform: Telephone Location of provider rendering services: practice address Location of patient: address on file Patient Identification confirmed using: Name, : Yes Telehealth method: voice only Patient verbally consented to treatment: Yes Patient verbally consented to billing insurance company: Yes Minutes spent on Phone/Video with Pt.: 12 [facility] Medical History (Updated 11/22/24 @ 14:00 by Fany Meza MD) Rheumatoid arthritis Upper respiratory tract infection Skin lesion of face Skin abscess Hospital discharge follow-up Laceration of elbow, right Contusion of elbow, right Right knee skin infection Knee pain Pacemaker Sinus pause Opioid use disorder COPD with acute exacerbation COPD (chronic obstructive pulmonary disease) Left knee pain Paroxysmal atrial fibrillation Knee pain Abdominal pain Smoker Neurodermatitis COPD exacerbation Scalp abscess Vaginal discharge Skin lesion Osteoarthritis of thoracic spine Anxiety Surgical History History of basal cell carcinoma (BCC) excision Mammogram declined History of bilateral cataract extraction History of ectopic History of hip replacement History of nasal surgery Family History Father No problems noted. Mother No problems noted. Social History Household Members: None Housing: Apartment Do you presently have visiting nurse or other home services: No Alcohol intake: former Patient Tobacco Use Status: Current everyday Tobacco user Tobacco use type: Cigarette Cigarettes Per Day: 6 Years Smoked: 50 e-Cigarette/Vaping Use: Never Used Second Hand Smoke Exposure: Yes service: No Current occupational status: retired and disabled Cognitive needs: Yes Hearing needs: No Vision needs: No Assessment & Plan Assessment & Plan (1) Opioid use disorder, moderate, in early remission, on maintenance therapy, dependence: Code(s): F11.21 - Opioid dependence, in remission Category: Medical Plan: * continue suboxone at current dose (2) Alcohol use disorder, moderate, dependence: Code(s): F10.20 - Alcohol dependence, uncomplicated Category: Medical Plan: * relapse prevention discussion
--- OUTSIDE RECORDS SUMMARY | 2024-11-23 09:36 | XMS_ITS | Data Portability ---
Author Organization [place] [facility], [facility] Address [address] [place] [address] Care Team Providers Care Open Cut Examiner Name Role Phone JOE SHELBY Primary Care Provider [facility] OTHER [facility] DERMATOLOGY OTHER Assessment Encounter Date Assessment Date [...] questions were answered prior to team departure. [email or web address] Not available 08/10/2022 14:13:30 Plan of Treatment [...] By Organization Details Last Modified Time 03/13/2021 [id number] Today you were seen for pain in [...] pain. [email or web address] Not available 03/13/2021 21:09:52 08/08/2022 [id number] rash: care instructions [email or web address] Not available 08/10/2022 14:14:03 Thank you for yo ur visit with [facility] today. We cannot always find the exact [...] in your condition between 8am-10pm, please call [facility] at [phone] to help navigate your care. Please seek [...] in your condition between 8am-10pm, please call [facility] at [phone] to help navigate your care. [email or web address] Not available 08/10/2022 14:12:58 Reason for Referral None Reported. Problems Name Problem SNOMED Code Status Onset Date Resolution Date Notes Provider Name and Address Organization Details Recorded Time Heart failure with normal ejection fraction 353918430 Active 2020 FEDERICO ANDERSON NP [address] [place], [address], [place] [facility] 20:24:01 Chronic obstructi ve pulmonary disease 32682814 Active 2020 FEDERICO ANDERSON NP [address] [place], [address], [place] [facility] 20:24:15 Smoker 06315857 Active 2020 FEDERICOROSALEE HERNÁNDEZRADHA, CHEMISTRY INTERN [address], [place], [address], [place] [facility] 20:24:34 Pulmonary hypertens ion 80059593 Completed 202003/13/2021 FEDERICO JUSTIN, CHEMISTRY INTERN [address], [place], [address], [place] [facility] 20:25:18 Mild pulmonary hypertens ion 278812799 Active 2020 FEDERICO JUSTIN, CHEMISTRY INTERN [address], [place], [address], [place] [facility] 20:25:34 Paroxysma l atrial fibrillat ion 684804791 Active 2020 FEDERICOFrancisco ANDERSON, CHEMISTRY INTERN [address], [place], [address], [place] [facility] 20:26:57 Scoliosis deformity of spine 684859637 Active 2020 FEDERICO JUSTIN, CHEMISTRY INTERN [address], [place], [address], [place] [facility] 16:46:51 Gastroeso phageal reflux disease 145057845 Active 2020 FEDERICOFrancisco ANDERSON, CHEMISTRY INTERN [address], [place], [address], [place] [facility] 16:47:02 Chronic hepatitis C 291269657 Completed 202003/14/2021 FEDERICOFrancisco ANDERSON, CHEMISTRY INTERN [address], [place], [address], [place] [facility] 16:47:41 Osteoarth ritis 990501761 Active 2020 FEDERICO ANDERSON, CHEMISTRY INTERN [address] [place], [address], [place] [facility] 16:48:10 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 Procedures Surgical History Date Name Laterality Status Provider Name and Address Organization Details Recorded Time prosthetic arthroplasty of the hip completed Crys Woody, GIANNA [address], [place], [address], [place] [facility] 06/14/2021 20:35:33 cardiac ablation using fluoroscopy guidance completed Crys Woody, GIANNA [address], [place], [address], [place] [facility] 06/14/2021 20:35:44 Imaging Results [...] RxNorm FEDERICO ANDERSON, GIANNA [address], [place], [address], [place] [facility] 16:45:41 [id number] tramadol medicatio n Not available Not available Not available 03/14/2021 13829 RxNorm FEDERICO ANDERSON NP [address], [place], [address], [place] [facility] 16:45:49 [id number] succinylc holine Not available Not available Not available Not available 03/14/2021 09226 RxNorm FEDERICO ANDERSON NP [address], [place], [address], [place] [facility] 16:46:00 [id number] cat dander environme nt Not available Not available Not available 03/14/2021 75944 UNK FEDERICO ANDERSON, CHEMISTRY INTERN [address], [place], [address], [place] [facility] 16:46:09 [id number] PO[employer] environme nt,medica tion Not available Not available Not available 03/14/2021 18204 6 RxNorm FEDERICO ANDERSON, CHEMISTRY INTERN [address] [facility] [place], [address], [place] [facility] 16:46:24 Medications Name Sig Start Date Stop [...] /min 140 mm[Hg] 80 mm[Hg] Not Available [facility] 2 17:56:46 Social History Question Answer Notes LastModified by Organizat ion Details LastModified Time Tobacco Smoking Status Current Every Day Smoker Crys Woody, GIANNA [address] [facility] [place], [address], [place] [facility] 06/14/2021 20:38:21 Do You [...] Visiting Friends Or Family Or Going To Hinduism Or Club Meetings) 1 Or 2 Times [...] History Condition Response Coronary Artery Disease Y COPD Y Depression N Diabetes N Cancer N Stroke N Asthma N High Cholesterol N Pulmonary Embolism N Hypertension N Kidney Disease N Gynecological HistoryNo gynecological history recorded. Obstetrics History GPAL:G 0 P 0 0 0 0 Past Encounters Encounter ID Performer Location Encounter Start Date Encounter Closed Date Diagnosis/Indication Diagnosis SNOMED-CT Code Diagnosis ICD10 Code Diagnosis Note [id number] FEDERICO ANDERSON NP [facility] [address] [place] [address] 03/13/2021 20:12:42 03/17/2021 17:32:37 Pain in right knee 1833541237 75168 M25.561 Overview/H istory: Patient with h/o chronic [...] her discomfort . 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 In order to obtain further informatio n and compare any laboratory results/va lues, I have accessed {{old patient records pa tient records on the [facility]* reviewed records with the PCP}}. This informatio n was pertinent in my medical decision making today. 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 She has not had the elbow evaluated, but did attempt to make a sling with an Joesph bandage she had in her apartment. Patient [...] Patient keon agrees to escort patient to [facility] for ARTURO evaluation of probable fracture given her level of pain and inability to complete self care. [facility] ED called and report provided. Right elbow [...] after care of this patient according to [facility] infection prevention protocols. In order to obtain further informatio n and compare any laboratory results/va lues, I have accessed {{old patient records* p atient records on the [facility] r eviewed records with the PCP}}. This informatio n was pertinent in my medical decision making today. Tear of skin 646690285 T 14.8XXA Pain in elbow 32650610 M 25.521 [id number] April GIANNA [facility] [address] [place] [address] 08/08/2022 17:20:49 08/11/2022 06:07:43 Contact dermatitis 13081383 L25.9 Health Concerns Section Related Observation LastModified by Organization Detai ls LastModified Time None Recorded Concern Status LastModified by Organization Details LastModified Time None Recorded Advance Directives Directive N: Payers Encounter Date Sequence Insurance Name Policy Number Policy Samuel Covered Member ID Samuel Member ID Guarantor Name 03/13/2021 1 [facility] [employer] (MEDICARE REPLACEMENT HMO) Yamileth Sandoval [id number] Yamileth Pembertongianni 06/14/2021 1 [facility] (MEDICARE REPLACEMENT HMO) Yamileth Pembertongianni [id number] Yamileth Pembertongianni 08/08/2022 1 [facility] (MEDICARE REPLACEMENT PPO) Yamileth Pembertongianni [id number] Yamileth Sandoval Notes Date Note Type Note [...] taking oxycodone prescribed by Dr Price at [facility] who manages her chronic pain and has [...] comfortable. FEDERICO ANDERSON, GIANNA [address], [place], [address], [place] [facility] 03/14/2021 18:03:41 06/14/2021 text/html Patient is [...] dependence. Crys Woody NP [address], [place], [address], [place] [facility] 06/16/2021 09:54:30 08/08/2022 text/html 77 YO F patient established with however new to . Per patient she has neuro dermatitis x 13 years and is experiencing a flare up, she has an appointment with [facility] on August 17 and needs pain medication [...] reaction. Stephie Lora NP [address], [place], [address], [place] [facility] 08/10/2022 14:14:18 OBGyn Episode No OBEpisode recorded.
== END 2024-11-23 09:25 | disposition home or self-care (01) ==
PROVIDERS: PCP Internal Medicine; Visit Provider Nurse Practitioner Psychiatric/Mental Health
DX: F11.21 Opioid dependence, in remission (principal); F10.20 Alcohol dependence, uncomplicated
CPT/HCPCS: 99213

== ENCOUNTER 2024-12-05 10:34 | Inpatient (IN) | payer OTHER, SELFPAY ==
[2024-12-05] VITALS (12 sets, daily range): BP systolic 123–181; BP diastolic 67–91; PULSE 64–86; RESP 14–20; TEMP 36.7–38.5; O2SAT 93–96; BMI 21.6
--- NOTE | ~2024-12-05 | CT_ITS ---
EXAMINATION: CT ABDOMEN AND PELVIS WITHOUT AND WITH CONTRAST CLINICAL INFORMATION: Bloody stools/melena. Left lower quadrant abdominal pain. COMPARISON: Noncontrast CT dated January 03, 2024. TECHNIQUE: Multidetector volumetric imaging was performed of the abdomen and pelvis before and after the IV administration of 85 mL of Omnipaque 350 strength intravenous contrast. Sagittal and coronal reformatted images were obtained on the technologist's workstation. No reported immediate complications were This CT examination was performed using dose optimization techniques as appropriate, variously including the following: *Automated exposure control *Adjustment of mA and/or kV according to patient size (this includes techniques or standardized protocols for targeted exams where dose is matched to indication/reason for exam; i.e. extremities or head) *Use of iterative reconstruction technique. DLP: 793 mGy centimeter. FINDINGS: LUNG BASES: Patchy pulmonary groundglass in the lung bases. Emphysematous changes. LIVER, GALLBLADDER, AND BILIARY TREE: Liver measures 13 cm in maximum length. Nodular surface. There are few scattered less than 1 cm hypodense lesions throughout the right and left hepatic lobes. The main portal vein, hepatic veins and intrahepatic portion of the IVC are patent. The umbilical vein is not patent. Mild prominent intrahepatic biliary ductal system. No pericholecystic fluid collection or gallbladder wall thickening. The common bile duct measures 4 mm. PANCREAS: 4 mm main pancreatic duct. No gross focal mass. Reduced volume of the pancreatic parenchyma. SPLEEN: 7 cm. No focal lesion. ADRENAL GLANDS: Soft tissue fullness in the right adrenal gland which measures -8 Hounsfield units on the noncontrast phase. Soft tissue fullness left adrenal gland which measures 4 Hounsfield units in the noncontrast phase. KIDNEYS AND URETERS: No gross renal mass. No hydronephrosis. Punctate calcifications in both renal hilum probable vascular. Normal enhancement pattern of the renal parenchyma and normal urinary excretion into the collecting system. BLADDER: Limited evaluation due to being hardening artifact secondary to the metallic prosthesis both hips. GASTROINTESTINAL TRACT: There is a diffuse entire colonic concentric edematous wall with enhancement of the mucosa and the wall resulting in reduced diameter of the lumen. There is some subtle arterial phase enhancing lesion within the splenic colonic flexure No pneumatosis intestinalis. No intestinal obstruction pattern. There is abundant stool within the large intestine. There is a collapsed appearance of the small bowel loops. I do not see the appendix. No pneumoperitoneum. No ascites. No peripheral enhancing fluid collection.. ABDOMINAL WALL: No gross umbilical hernia. There is a fat-containing left inguinal/femoral hernia. LYMPH NODES: Nonspecific prominent lymph nodes, retroperitoneum. VASCULAR: Irregular shaped mixed plaques throughout the abdominal aorta wall and descending thoracic aorta, the origin of the main renal arteries and the mesenteric arteries as well as the iliac arteries. Calcified plaques in the splenic artery with the tortuosity. There is an electrode leads in the right heart chambers. PELVIC VISCERA: Unable to elevate. OSSEOUS STRUCTURES: Status post bilateral hip arthroplasty prosthesis resulting in beam hardening artifact that appear intact with normal alignment. There is a levoconvex rotoscoliosis apex at L2-3. Likely old compression deformities, thoracolumbar spine more conspicuous at L4, L2 and L1 resulting in 50% volume loss. There is a bone marrow inhomogeneity throughout the axial skeleton. CT/CT gi bleed abd pel wo/w IVcon IMPRESSION: Diffuse acute colitis with questionable active bleed in the splenic colonic flexure. Discussed with the requesting physician housing assistant property manager, Sandra Neff in the emergency department at 2:38 PM Fleischner guidelines were followed. Electronically signed by: Mathew Rawls MD 12/05/2024 02:53 PM [facility]
--- NOTE | ~2024-12-05 | XR_ITS ---
EXAMINATION: XR ABDOMEN COMPLETE CLINICAL INDICATION: Acute colitis, abdominal pain and distention COMPARISON: CT dated prior day. TECHNIQUE: 2 views of the abdomen, supine and upright. FINDINGS: No free air. Mild gaseous dilatation of the ascending, transverse colon and splenic flexure, with mild fold/haustral thickening. Minimal gaseous distention of upper left small bowel, and small bowel within the deep pelvis, similar to the prior CT, suggestion of mild fold thickening. No definite pneumatosis evident. A few scattered differential air-fluid levels on the upright radiograph, mainly in the left superior pelvis. Dual lead pacer noted with mild cardiac enlargement. Linear atelectasis or scarring left lung base. There are bilateral total hip arthroplasties. Levoconvex lumbar scoliosis with advanced degenerative spondylosis. XR/XR abdomen min 2V IMPRESSION: 1. Mild gaseous distention of the right and transverse colon, with mild haustral thickening consistent with the known colitis. 2. A few prominent small bowel loops suggest mild ileus. No obstruction grossly. 3. No evidence of free intraperitoneal air. Electronically signed by: Jorge Luis Terrell MD 12/06/2024 04:08 PM [facility]
--- NOTE | 2024-12-05 10:46 | ED_ITS ---
HPI - Abdominal Pain General Chief Complaint: General Medical Stated Complaint: ABD PAIN PER EMS Time Seen by Provider: 12/05/24 10:44 Source: patient, EMS, RN notes reviewed and old records reviewed Mode of arrival: EMS History of Present Illness ED Provider: Sandra Neff PA-C HPI narrative: 79-year-old female with a past medical history of RA, pacemaker, opiate use disorder, COPD, proximal AFib on Xarelto, presenting to the ED via EMS presenting to the ED complaining of left lower quadrant abdominal pain and bloody/black stool since 05:00AM. Reports stool is watery/dripping out of her. Denies fever, chills, nausea, vomiting, dysuria/hematuria Related Data Home Medications ?Medication ?Instructions ?Recorded ?Confirmed alprazolam 0.25 mg tablet 0.25 mg PO TID 06/11/24 12/05/24 fluticasone furoate 100 1 inh inhalation DAILY 06/11/24 12/05/24 mcg-vilanterol 25 mcg/dose inhalation powder (Breo Ellipta) propranolol 60 mg capsule,24 60 mg PO DAILY 06/11/24 12/05/24 hr,extended release rivaroxaban 20 mg tablet (Xarelto) 20 mg PO DAILY 06/11/24 12/05/24 buspirone 15 mg tablet 15 mg PO BID 12/05/24 12/05/24 clobetasol 0.05 % topical cream 1 appl topical BID 12/05/24 12/05/24 hydroxyzine HCl 25 mg tablet 25 mg PO TID 12/05/24 12/05/24 ketoconazole 2 % shampoo 1 appl topical DAILY 12/05/24 12/05/24 tiotropium bromide 18 mcg capsule 1 cap inhalation DAILY 12/05/24 12/05/24 with inhalation device (Spiriva with HandiHaler) Previous Rx's ?Medication ?Instructions ?Recorded lisinopril 20 mg tablet 20 mg PO DAILY 90 days #90 tabs 08/09/24 flecainide 100 mg tablet 100 mg PO Q12H #180 tabs 10/08/24 cane #1 ea 10/29/24 Allergies Allergy/AdvReac Type Severity Reaction Status Date / Time succinylcholine Allergy Severe EXCESSIVE Verified 12/05/24 10:56 [SUCCINYLCHOLINE] PARALYSIS tramadol Allergy Intermediate diarrhea, Verified 12/05/24 10:56 upset stomach cat dander [CATS] Allergy Mild UNKNOWN Verified 12/05/24 10:56 dog dander [DOGS] Allergy Mild UNKNOWN Verified 12/05/24 10:56 pollen extracts [POLLEN] Allergy Mild UNKNOWN Verified 12/05/24 10:56 gabapentin AdvReac Mild Nausea and Verified 12/05/24 10:56 Vomiting DUST Allergy Mild UNKNOWN Uncoded 12/05/24 10:56 Review of Systems Review of Systems Yes all other systems are reviewed and are negative Constitutional: Reports as per [facility] Past Medical History Attestation statement: The following information was validated with the patient. Source: old records reviewed Medical History Rheumatoid arthritis Upper respiratory tract infection Skin lesion of face Skin abscess Hospital discharge follow-up Laceration of elbow, right Contusion of elbow, right Right knee skin infection Knee pain Pacemaker Sinus pause Opioid use disorder COPD with acute exacerbation COPD (chronic obstructive pulmonary disease) Left knee pain Paroxysmal atrial fibrillation Knee pain Abdominal pain Smoker Neurodermatitis COPD exacerbation Scalp abscess Vaginal discharge Skin lesion Osteoarthritis of thoracic spine Anxiety Surgical History History of basal cell carcinoma (BCC) excision Mammogram declined History of bilateral cataract extraction History of ectopic History of hip replacement History of nasal surgery Family History Family History Father No problems noted. Mother No problems noted. Social History Social History Household Members: None Housing: Apartment Do you presently have visiting nurse or other home services: No Alcohol intake: former Patient Tobacco Use Status: Never used Tobacco Tobacco use type: Cigarette Cigarettes Per Day: 6 Years Smoked: 50 Smoked in Last 30 Days: No e-Cigarette/Vaping Use: Never Used Second Hand Smoke Exposure: Yes Use of substances other than those prescribed or required for medical reasons: No Advance Directives: Yes Advance Directives Information Provided: No Advance Directives on File: No Do you have a plan to hurt others: No Plan Nutrition Risks: No Nutritional Risk service: No Current occupational status: retired and disabled Cognitive needs: Yes Hearing needs: No Vision needs: No Physical Exam ED Vital Signs: Vital Signs - 24 hr 12/05/24 10:48 12/05/24 11:26 12/05/24 13:11 Temperature 98.0 F Pulse Rate 64 Respiratory Rate 18 20 20 Blood Pressure 171/91 H Pulse Oximetry 95 Oxygen Delivery Method Room Air 12/05/24 15:22 12/05/24 15:44 12/05/24 16:50 Temperature 101.3 F H 99.1 F Pulse Rate 75 Respiratory Rate 20 20 Blood Pressure 181/84 H Pulse Oximetry 94 Oxygen Delivery Method Room Air 12/05/24 17:16 Temperature 99.6 F Pulse Rate 83 Respiratory Rate 20 Blood Pressure 147/90 H Pulse Oximetry 96 Oxygen Delivery Method Room Air BMI result Body Mass Index 21.6 Const General: cooperative, healthy appearing and no acute distress Orientation/consciousness: patient oriented x3 Limitations: no limitations HENMT Head: Yes normal to inspection and Yes atraumatic Ears: hearing grossly normal bilaterally General nose exam: Normal external nose present Face and sinus: Yes normal facial exam Eyes General: appearance normal, both eyes and all related structures EOM: EOMs intact bilaterally Neck Neck: Yes normal visual inspection and Yes no meningeal signs Resp Effort & Inspection: normal respiratory effort and no respiratory distress Auscultation: clear to auscultation bilaterally Cardio Rate: regular rate Heart sounds: S1 normal heart sound present and S2 normal heart sound present GI Inspection: Yes normal to inspection Palpation (GI): Soft to palpation, Tenderness to palpation present (GI) in the LLQ and suprapubicly; with no rebound tenderness, no guarding and not rigid Rectal Exam - Female: Abnormal stool present Rectal exam abnormal stool - female: blood-tinged stool General: Yes no CVA tenderness Back/Spine/Pelvis Back: no CVA tenderness Skin Rashes: no rashes Wounds: no wounds Neuro General: patient oriented x3, tone normal and no meningeal signs Cranial nerves: Yes CN's II-XII intact bilaterally Gait exam (Neuro): Normal gait present Extrem General: Yes normal to inspection Course Course Course Narrative: -occult stool positive -1304--leukocytosis of 19.9. Hemoconcentrated > lactic and blood cultures added as well as empiric IV Zosyn -BUN elevated to 23. Labs otherwise reassuring -1355--UA contaminated, will wait on culture results -1505--lactic acidosis 2.4 CT gi bleed abd pel wo/w IVcon IMPRESSION: Diffuse acute colitis with questionable active bleed in the splenic colonic flexure. Discussed with the requesting physician sales assistant entertainment and media, Sandra Neff in the emergency department at 2:38 PM Fleischner guidelines were followed. > consulted GI, Dr. Rosado >> concern for more ischemic or infectious colitis. Patient without active bleeding in the ED, will hold off on IR intervention at this time. Xarelto can be reversed if needed. States if patient is stable they will consult and talk about eventual colonoscopy. Recommended obtaining C diff and GI panel as well as surgical consult for abdominal pain > will consult Dr. Gonzalez from General surgery > she will evaluate patient in the ED -1637--repeat CBC with increasing leukocytosis of 20.4 and 18% bands. H&H still stable however with drop. Patient did receive IVF/volume. H/H 14.0/40.4 >> patient without any BMs since ED arrival. >1705--pending General surgery recommendations/evaluation. ED care transferred to Dr. Mcgee pending surgery recommendations and admission no surgery at this time per Dr. Gonzalez admit to medicine, GI is aware as well. Dr. Miguel aware of admission Medical Decision Making Medical Decision Making MDM Narrative: 79-year-old female with a past medical history of RA, pacemaker, opiate use disorder, COPD, proximal AFib on Xarelto, presenting to the ED via EMS presenting to the ED complaining of left lower quadrant abdominal pain and bloody/black stool since 05:00AM. On exam vital signs stable, NAD, nontoxic appearing, abdomen soft with left lower quadrant/suprapubic tenderness, no rebound or guarding. On rectal blood tinged stool appreciate. Concern for GI bleed with bloody stools/melena vs diverticulitis/colitis vs anemia vs hernia. Lower suspicion for acute appendicitis or UTI at this time Plan: Labs, UA, CT AP, IVF, occult stool, pain control, re-evaluate Please refer to course for remaining clinical decision making, interpretation of labs/imaging results, and discussions with consultants and/or family members. Differential Diagnosis Differential Diagnoses: The differential diagnosis associated with the presentation includes As above Admission/Observation Consideration of admission/observation: Escalation of care including admission/observation considered admit after discussion with GI and surgery Dr. Gonzalez - no surgery at this time, fluids, antibiotics Consult Healthcare Provider Management of the patient was discussed with: Hospitalist and Piano Technician Lab Data MDM Lab Attestation statement: I reviewed the patient's lab results. 12/05/24 16:05 12/05/24 11:21 Labs: Lab Results 12/05/24 12/05/24 12/05/24 Range/Units 11:21 11:32 12:51 WBC 19.9 H (4.8-10.8) X10*3/uL RBC 5.42 D (4.20-5.50) X10*6/uL Hgb 16.1 H D (12.0-16.0) g/dl Hct 48.1 H (37.0-47.0) % MCV 88.7 (80.0-98.0) fL MCH 29.7 (27.0-33.0) pg MCHC 33.5 (31.0-35.0) g/dl RDW 12.6 (11.0-16.0) % Plt Count 183 (160-400) X10*3/uL MPV 10.9 (9.4-12.3) fL Immature Gran % (Auto) Cancelled Neut % (Auto) Cancelled Lymph % (Auto) Cancelled [place] % (Auto) Cancelled Eos % (Auto) Cancelled Baso % (Auto) Cancelled Lymph # (Auto) Cancelled [place] # (Auto) Cancelled Eos # (Auto) Cancelled Baso # (Auto) Cancelled Abs Immat Gran (auto) Cancelled Absolute Neuts (auto) Cancelled Absolute Nucleated RBC 0.000 (0.0-0.012) X10*3/uL Nucleated RBC % (auto) 0.0 (0.0-0.2) /100WBC Neutrophils % (Manual) 85 H (45-73) % Band Neutrophils % 9 H (3-5) % Lymphocytes % (Manual) 2 L (20-40) % Atypical Lymphs % (Man) (0-6) % Monocytes % (Manual) 3 (2-11) % Metamyelocytes % 1 % Abs Neuts (Manual) 18.7 H (2.0-8.3) X10*3/uL Lymphocytes # (Manual) 0.4 L (1.2-4.9) X10*3/uL Atyp Lymphs # (Manual) x10*3/uL Monocytes # (Manual) 0.6 (0.1-1.2) X10*3/uL Metamyelocytes # 0.2 X10*3/uL Toxic Vacuolation Platelet Estimate NORMAL (NORMAL) Plt Morphology Comment NORMAL RBC Morphology NORMAL PT 19.2 H (10.9-12.4) SEC INR 1.6 H (0.9-1.1) Sodium 139 (135-145) mmol/L Potassium 4.5 (3.3-5.1) mmol/L Chloride 106 (96-108) mmol/L Carbon Dioxide 22 (22-29) mmol/L Anion Gap 16 (12-20) BUN 23 H (9-16) mg/dL Creatinine 1.16 (0.5-1.4) mg/dL Estim Creat Clear Calc 36.0 Estimated GFR 45 Random Glucose 247 H (60-115) mg/dL Lactic Acid (0.5-2.0) mmol/L Lactic Acid F/U @ 2Hr (0.5-2.0) mmol/L Calcium 9.2 (8.4-10.2) mg/dL Magnesium 1.7 (1.6-2.6) mg/dL Total Bilirubin 0.5 (0.0-1.0) mg/dL Direct Bilirubin 0.1 (0.0-0.5) mg/dL AST 49 H (5-31) U/L ALT 24 (0-31) U/L Alkaline Phosphatase 113 (39-117) U/L Total Protein 7.3 (6.5-8.0) g/dL Albumin 3.8 (3.5-5.0) g/dL Lipase 15 (8-78) U/L Urine Color Urine Appearance Urine pH (5.0-9.0) Ur Specific [place] (1.005-1.025) Urine Protein (Neg-Trace) mg/dL Urine Glucose (UA) (Negative) mg/dL Urine Ketones (Negative) mg/dL Urine Blood (Negative) Urine Nitrite (Negative) Ur Leukocyte Esterase (Negative) Urine RBC (0-2) /HPF Urine WBC (0-5) /HPF Ur Squamous Epith Cells (0-2) /HPF Urine Bacteria (None Seen) Hyaline Casts (0-2) /LPF Granular Casts Stool Occult Blood POSITIVE (NEGATIVE) 12/05/24 12/05/24 12/05/24 Range/Units 13:26 14:34 16:05 WBC 20.4 H (4.8-10.8) X10*3/uL RBC 4.64 (4.20-5.50) X10*6/uL Hgb 14.0 (12.0-16.0) g/dl Hct 40.4 (37.0-47.0) % MCV 87.1 (80.0-98.0) fL MCH 30.2 (27.0-33.0) pg MCHC 34.7 (31.0-35.0) g/dl RDW 12.7 (11.0-16.0) % Plt Count 171 (160-400) X10*3/uL MPV 10.4 (9.4-12.3) fL Immature Gran % (Auto) Cancelled Neut % (Auto) Cancelled Lymph % (Auto) Cancelled [place] % (Auto) Cancelled Eos % (Auto) Cancelled Baso % (Auto) Cancelled Lymph # (Auto) Cancelled [place] # (Auto) Cancelled Eos # (Auto) Cancelled Baso # (Auto) Cancelled Abs Immat Gran (auto) Cancelled Absolute Neuts (auto) Cancelled Absolute Nucleated RBC 0.000 (0.0-0.012) X10*3/uL Nucleated RBC % (auto) 0.0 (0.0-0.2) /100WBC Neutrophils % (Manual) 64 (45-73) % Band Neutrophils % 18 H (3-5) % Lymphocytes % (Manual) 2 L (20-40) % Atypical Lymphs % (Man) 1 (0-6) % Monocytes % (Manual) 14 H (2-11) % Metamyelocytes % 1 % Abs Neuts (Manual) 16.7 H (2.0-8.3) X10*3/uL Lymphocytes # (Manual) 0.4 L (1.2-4.9) X10*3/uL Atyp Lymphs # (Manual) 0.2 x10*3/uL Monocytes # (Manual) 2.9 H (0.1-1.2) X10*3/uL Metamyelocytes # 0.2 X10*3/uL Toxic Vacuolation PRESENT Platelet Estimate NORMAL (NORMAL) Plt Morphology Comment NORMAL RBC Morphology NOTED PT (10.9-12.4) SEC INR (0.9-1.1) Sodium (135-145) mmol/L Potassium (3.3-5.1) mmol/L Chloride (96-108) mmol/L Carbon Dioxide (22-29) mmol/L Anion Gap (12-20) BUN (9-16) mg/dL Creatinine (0.5-1.4) mg/dL Estim Creat Clear Calc Estimated GFR Random Glucose (60-115) mg/dL Lactic Acid 2.4 H* (0.5-2.0) mmol/L Lactic Acid F/U @ 2Hr (0.5-2.0) mmol/L Calcium (8.4-10.2) mg/dL Magnesium (1.6-2.6) mg/dL Total Bilirubin (0.0-1.0) mg/dL Direct Bilirubin (0.0-0.5) mg/dL AST (5-31) U/L ALT (0-31) U/L Alkaline Phosphatase (39-117) U/L Total Protein (6.5-8.0) g/dL Albumin (3.5-5.0) g/dL Lipase (8-78) U/L Urine Color Dark Yellow Urine Appearance Clear Urine pH 5.5 (5.0-9.0) Ur Specific [place] 1.020 (1.005-1.025) Urine Protein Negative (Neg-Trace) mg/dL Urine Glucose (UA) 100 H (Negative) mg/dL Urine Ketones Trace (Negative) mg/dL Urine Blood Negative (Negative) Urine Nitrite Negative (Negative) Ur Leukocyte Esterase Trace H (Negative) Urine RBC 0-2 (0-2) /HPF Urine WBC 6-10 H (0-5) /HPF Ur Squamous Epith Cells 11-20 (0-2) /HPF Urine Bacteria None Seen (None Seen) Hyaline Casts 6-10 (0-2) /LPF Granular Casts Present Stool Occult Blood (NEGATIVE) 12/05/24 Range/Units 16:48 WBC (4.8-10.8) X10*3/uL RBC (4.20-5.50) X10*6/uL Hgb (12.0-16.0) g/dl Hct (37.0-47.0) % MCV (80.0-98.0) fL MCH (27.0-33.0) pg MCHC (31.0-35.0) g/dl RDW (11.0-16.0) % Plt Count (160-400) X10*3/uL MPV (9.4-12.3) fL Immature Gran % (Auto) Neut % (Auto) Lymph % (Auto) [place] % (Auto) Eos % (Auto) Baso % (Auto) Lymph # (Auto) [place] # (Auto) Eos # (Auto) Baso # (Auto) Abs Immat Gran (auto) Absolute Neuts (auto) Absolute Nucleated RBC (0.0-0.012) X10*3/uL Nucleated RBC % (auto) (0.0-0.2) /100WBC Neutrophils % (Manual) (45-73) % Band Neutrophils % (3-5) % Lymphocytes % (Manual) (20-40) % Atypical Lymphs % (Man) (0-6) % Monocytes % (Manual) (2-11) % Metamyelocytes % % Abs Neuts (Manual) (2.0-8.3) X10*3/uL Lymphocytes # (Manual) (1.2-4.9) X10*3/uL Atyp Lymphs # (Manual) x10*3/uL Monocytes # (Manual) (0.1-1.2) X10*3/uL Metamyelocytes # X10*3/uL Toxic Vacuolation Platelet Estimate (NORMAL) Plt Morphology Comment RBC Morphology PT (10.9-12.4) SEC INR (0.9-1.1) Sodium (135-145) mmol/L Potassium (3.3-5.1) mmol/L Chloride (96-108) mmol/L Carbon Dioxide (22-29) mmol/L Anion Gap (12-20) BUN (9-16) mg/dL Creatinine (0.5-1.4) mg/dL Estim Creat Clear Calc Estimated GFR Random Glucose (60-115) mg/dL Lactic Acid (0.5-2.0) mmol/L Lactic Acid F/U @ 2Hr 2.2 H* (0.5-2.0) mmol/L Calcium (8.4-10.2) mg/dL Magnesium (1.6-2.6) mg/dL Total Bilirubin (0.0-1.0) mg/dL Direct Bilirubin (0.0-0.5) mg/dL AST (5-31) U/L ALT (0-31) U/L Alkaline Phosphatase (39-117) U/L Total Protein (6.5-8.0) g/dL Albumin (3.5-5.0) g/dL Lipase (8-78) U/L Urine Color Urine Appearance Urine pH (5.0-9.0) Ur Specific [place] (1.005-1.025) Urine Protein (Neg-Trace) mg/dL Urine Glucose (UA) (Negative) mg/dL Urine Ketones (Negative) mg/dL Urine Blood (Negative) Urine Nitrite (Negative) Ur Leukocyte Esterase (Negative) Urine RBC (0-2) /HPF Urine WBC (0-5) /HPF Ur Squamous Epith Cells (0-2) /HPF Urine Bacteria (None Seen) Hyaline Casts (0-2) /LPF Granular Casts Stool Occult Blood (NEGATIVE) Independent Interpretation I performed an independent interpretation of an: CT Scan Radiology Impression Discussion of test interpretation with radiology: I have reviewed the radiologist's reading. External Record Review External record reviewed: Inpatient record, Office record, Outpatient record, Prior outpatient labs, Prior outpatient radiology, Primary care record and Outside ED record Tests considered The following testing was considered but not selected: As above Prescription Management I considered prescription management with: Pain Medication Chronic Conditions Patient?s care impacted by: Hypertension and Other Social Determinants Patient?s care significantly limited by Social Determinants of Health including: Alcoholism and drug addiction in family and Problems related to primary support group Medications Administered Generic Name Dose Route Start Last Admin Trade Name Freq PRN Reason Stop Dose Admin Flecainide Acetate 100 mg 12/05/24 21:00 12/05/24 19:40 Flecainide Acetate 50 Mg Tablet PO 100 mg BID HAIDER Administration Lactated Ringer's 1,000 mls @ 60 mls/hr 12/05/24 18:30 12/05/24 19:48 Lr IVCONT 60 mls/hr .[id number] HAIDER Administration Piperacillin Sod/Tazobactam 50 mls @ 100 mls/hr 12/05/24 21:00 12/05/24 19:40 Sod 2.25 gm/ Sodium Chloride IV 100 mls/hr Q6H HAIDER Administration Morphine Sulfate 2 mg 12/05/24 18:17 12/05/24 19:37 Morphine Sulfate 4 Mg/Ml Cartridge IVPUSH 2 mg Q4H PRN Administration Pain, Severe (Pain Scale 7-10) Protocol Discontinued Medications Generic Name Dose Route Start Last Admin Trade Name Gunnarq PRN Reason Stop Dose Admin Sodium Chloride 1,000 mls @ 999 mls/hr 12/05/24 11:00 12/05/24 12:58 Ns IV 12/05/24 12:00 Infused .Q1H1M HAIDER Infusion Piperacillin Sod/Tazobactam 50 mls @ 100 mls/hr 12/05/24 13:03 12/05/24 16:51 Sod 3.375 gm/ Sodium Chloride IV 12/05/24 13:32 Infused ONCE ONE Infusion Acetaminophen 1,000 mg in 100 mls @ 400 mls/hr 12/05/24 15:21 12/05/24 16:50 Ofirmev IV 12/05/24 15:35 Infused ONCE ONE Infusion Phytonadione 10 mg/ Sodium 51 mls @ 51 mls/hr 12/05/24 18:43 12/05/24 19:35 Chloride IV 12/05/24 19:42 51 mls/hr ONCE ONE Administration Iohexol 100 ml 12/05/24 13:47 12/05/24 13:48 Iohexol 350 Mg/Ml 100 Ml Infus..Btl IV 12/05/24 13:48 80 ml ONCE ONE Administration Morphine Sulfate 2 mg 12/05/24 10:57 12/05/24 11:26 Morphine Sulfate 2 Mg/Ml Cartridge IVPUSH 12/05/24 10:58 2 mg ONCE ONE Administration Protocol Morphine Sulfate 4 mg 12/05/24 13:02 12/05/24 13:11 Morphine Sulfate 4 Mg/Ml Cartridge IVPUSH 12/05/24 13:03 4 mg ONCE ONE Administration Protocol Morphine Sulfate 4 mg 12/05/24 15:37 12/05/24 15:44 Morphine Sulfate 4 Mg/Ml Cartridge IVPUSH 12/05/24 15:38 4 mg ONCE ONE Administration Protocol Critical Care Time Critical Care Time Critical Care Time: Yes Total Critical Care Time: 50 Attestation: I have personally provided critical care time exclusive of time spent on separately billable procedures. Time includes review of lab data, radiology results, discussion with consultants, and monitoring for potential decompensation. Intervention performed as documented. Discharge Plan Discharge Clinical Impression: Acute colitis, Abdominal pain, Occult blood positive stool, Infectious colitis Patient Disposition: Admitted As Inpatient Interventions: Admission Worksheet (ED) Last Done: 12/05/24 18:16
[2024-12-05] MEDS: Morphine Sulfate 2 MG/ML CARTRIDGE IVPUSH (11:26)
[2024-12-05] MEDS: 0.9 % Sodium Chloride 1,000 ML 999 ML IV (11:27)
[2024-12-05 11:41] LABS: Hematocrit 48.1 % (37.0-47.0); Hemoglobin 16.1 g/dl (12.0-16.0); Mean Corpuscular HGB Conc 33.5 g/dl (31.0-35.0); Mean Corpuscular Hemoglobin 29.7 pg (27.0-33.0); Mean Corpuscular Volume 88.7 fL (80.0-98.0); Mean Platelet Volume 10.9 fL (9.4-12.3); Platelet Count 183 X10*3/uL (160-400); Red Blood Count 5.42 X10*6/uL (4.20-5.50); Red Cell Distribution Width 12.6 % (11.0-16.0)
[2024-12-05 11:42] LABS: OBS Int Ctl Valid YES; OBS1 POSITIVE (NEGATIVE)
[2024-12-05 11:43] LABS: Alanine Aminotransferase 24 U/L (0-31); Albumin Level 3.8 g/dL (3.5-5.0); Alkaline Phosphatase 113 U/L (39-117); Anion Gap 16 (12-20); Aspartate Amino Transferase 49 U/L (5-31); Bilirubin Direct 0.1 mg/dL (0.0-0.5); Bilirubin Total 0.5 mg/dL (0.0-1.0); Blood Urea Nitrogen 23 mg/dL (9-16); Calcium 9.2 mg/dL (8.4-10.2); Carbon Dioxide 22 mmol/L (22-29); Chloride 106 mmol/L (96-108); Estimated Glomerular Filt Rate 45; Glucose Random 247 mg/dL (60-115); Lipase 15 U/L (8-78); Magnesium 1.7 mg/dL (1.6-2.6); Potassium 4.5 mmol/L (3.3-5.1); Sodium 139 mmol/L (135-145); Total Protein 7.3 g/dL (6.5-8.0); WBC ABN SCTR FOR CBC 1
[2024-12-05 12:03] LABS: Band Neutrophils Percent 9 % (3-5); Lymphocytes Percent Manual 2 % (20-40); Metamyelocytes Percent 1 %; Monocytes Percent Manual 3 % (2-11); Neutrophils Percent Manual 85 % (45-73); Platelet Estimate NORMAL (NORMAL); Platelet Morphology Comment NORMAL; RBC Morphology NORMAL
[2024-12-05 12:04] LABS: Lymphocytes Absolute Manual 0.4 X10*3/uL (1.2-4.9); Metamyelocytes Absolute 0.2 X10*3/uL; Monocytes Absolute Manual 0.6 X10*3/uL (0.1-1.2); Neutrophils Absolute Manual 18.7 X10*3/uL (2.0-8.3); White Blood Count 19.9 X10*3/uL (4.8-10.8)
[2024-12-05 13:04] LABS: INTERNATIONAL NORM RATIO 1.6 (0.9-1.1); Prothrombin Time 19.2 SEC (10.9-12.4)
[2024-12-05] MEDS: Morphine Sulfate 4 MG/ML CARTRIDGE IVPUSH ×2 (13:11→15:44)
[2024-12-05 13:35] LABS: Appearance Urine Clear; Color Urine Dark Yellow; Glucose Urine UA 100 mg/dL (Negative); Leukocyte Esterase Urine Trace (Negative); Nitrite Urine Negative (Negative); PH 5.5 (5.0-9.0); UMIC TRIGGER UACC YES; Urine Blood Negative (Negative); Urine Ketones Trace mg/dL (Negative); Urine Protein Negative (Neg-Trace)
[2024-12-05] MEDS: iohexoL 350 MG/ML 100 ML INFUS..BTL IV (13:48)
[2024-12-05 13:50] LABS: Bacteria Urine None Seen (None Seen); Granular Casts Urine Present; RBC Urine 0-2 /HPF (0-2); UACC Culture Trigger YES
[2024-12-05] MEDS: Piperacillin Sodium/Tazobactam 3.375 GM in 0.9 % Sodium Chloride 50 ML IV (14:50)
[2024-12-05 15:01] LABS: Lactic Acid 2.4 mmol/L (0.5-2.0)
[2024-12-05] MEDS: Acetaminophen 1,000 MG/100 ML PIGGYBACK 400 MG IV (15:35)
[2024-12-05 16:10] LABS: Hematocrit 40.4 % (37.0-47.0); Mean Corpuscular HGB Conc 34.7 g/dl (31.0-35.0); Mean Corpuscular Hemoglobin 30.2 pg (27.0-33.0); Mean Corpuscular Volume 87.1 fL (80.0-98.0); Mean Platelet Volume 10.4 fL (9.4-12.3); Platelet Count 171 X10*3/uL (160-400); Red Blood Count 4.64 X10*6/uL (4.20-5.50); Red Cell Distribution Width 12.7 % (11.0-16.0)
[2024-12-05 16:21] LABS: WBC ABN SCTR FOR CBC 1
[2024-12-05 16:26] LABS: White Blood Count 20.4 X10*3/uL (4.8-10.8)
[2024-12-05 16:29] LABS: Neutrophils Percent Manual 64 % (45-73)
[2024-12-05 16:34] LABS: Atypical Lymph Absolute Manual 0.2 x10*3/uL; Atypical Lymphs Percent Manual 1 % (0-6); Band Neutrophils Percent 18 % (3-5); Lymphocytes Absolute Manual 0.4 X10*3/uL (1.2-4.9); Lymphocytes Percent Manual 2 % (20-40); Metamyelocytes Absolute 0.2 X10*3/uL; Metamyelocytes Percent 1 %; Monocytes Absolute Manual 2.9 X10*3/uL (0.1-1.2); Monocytes Percent Manual 14 % (2-11); Neutrophils Absolute Manual 16.7 X10*3/uL (2.0-8.3); Platelet Estimate NORMAL (NORMAL); Platelet Morphology Comment NORMAL; RBC Morphology NOTED; Toxic Vacuolation PRESENT
[2024-12-05 16:39] LABS: Reflex Lactate? Lactic Acid Added
[2024-12-05 17:12] LABS: ~Lactic Acid-LAB USE ONLY 2.2 mmol/L (0.5-2.0)
--- NOTE | 2024-12-05 17:28 | PM.IMHP ---
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 The patient denies any fever but reports chills. No chest pain, palpitations, SOB, nausea, vomiting, diarrhea or urinary symptoms. The patient started gradually and got worse. no radiation, no relieving factors. In ED CT Scan read Diffuse acute colitis with questionable active bleed in the splenic colonic flexure. Blood work showed leukocytosis with left shift. lactic acidosis and bandemia. Discussed with surgery and GI as the patient not interested in surgery at this point. Admitted for further evaluation and treatment. Review of Systems Review of Systems: Abd pain LLQ blood stool chills Yes all other systems are reviewed and are negative [facility] Medical History Rheumatoid arthritis Upper respiratory tract infection Skin lesion of face Skin abscess Hospital discharge follow-up Laceration of elbow, right Contusion of elbow, right Right knee skin infection Knee pain Pacemaker Sinus pause Opioid use disorder COPD with acute exacerbation COPD (chronic obstructive pulmonary disease) Left knee pain Paroxysmal atrial fibrillation Knee pain Abdominal pain Smoker Neurodermatitis COPD exacerbation Scalp abscess Vaginal discharge Skin lesion Osteoarthritis of thoracic spine Anxiety Family History Father No problems noted. Mother No problems noted. Surgical History History of basal cell carcinoma (BCC) excision Mammogram declined History of bilateral cataract extraction History of ectopic History of hip replacement History of nasal surgery Social History Household Members: None Housing: Apartment Do you presently have visiting nurse or other home services: No Alcohol intake: former Patient Tobacco Use Status: Never used Tobacco Tobacco use type: Cigarette Cigarettes Per Day: 6 Years Smoked: 50 Smoked in Last 30 Days: No e-Cigarette/Vaping Use: Never Used Second Hand Smoke Exposure: Yes Use of substances other than those prescribed or required for medical reasons: No Advance Directives: Yes Advance Directives Information Provided: No Advance Directives on File: No Do you have a plan to hurt others: No Plan Nutrition Risks: No Nutritional Risk service: No Current occupational status: retired and disabled Cognitive needs: Yes Hearing needs: No Vision needs: No Meds Allergies Allergy/AdvReac Type Severity Reaction Status Date / Time succinylcholine Allergy Severe EXCESSIVE Verified 12/05/24 10:56 [SUCCINYLCHOLINE] PARALYSIS tramadol Allergy Intermediate diarrhea, Verified 12/05/24 10:56 upset stomach cat dander [CATS] Allergy Mild UNKNOWN Verified 12/05/24 10:56 dog dander [DOGS] Allergy Mild UNKNOWN Verified 12/05/24 10:56 pollen extracts [POLLEN] Allergy Mild UNKNOWN Verified 12/05/24 10:56 gabapentin AdvReac Mild Nausea and Verified 12/05/24 10:56 Vomiting DUST Allergy Mild UNKNOWN Uncoded 12/05/24 10:56 Home Medications ?Medication ?Instructions ?Recorded ?Confirmed ?Last Taken ?Type alprazolam 0.25 mg tablet 0.25 mg PO BID 06/11/24 12/05/24 12/04/24 History fluticasone furoate 100 1 inh inhalation DAILY 06/11/24 12/05/24 12/04/24 History mcg-vilanterol 25 mcg/dose inhalation powder (Breo Ellipta) propranolol 60 mg capsule,24 60 mg PO DAILY 06/11/24 12/05/24 12/04/24 History hr,extended release rivaroxaban 20 mg tablet (Xarelto) 20 mg PO DAILY 06/11/24 12/05/24 12/04/24 History buspirone 15 mg tablet 15 mg PO BID 12/05/24 12/05/24 12/04/24 History clobetasol 0.05 % topical cream 1 appl topical BID 12/05/24 12/05/24 12/04/24 History hydroxyzine HCl 25 mg tablet 25 mg PO TID 12/05/24 12/05/24 12/04/24 History ketoconazole 2 % shampoo 1 appl topical DAILY 12/05/24 12/05/24 12/04/24 History tiotropium bromide 18 mcg capsule 1 cap inhalation DAILY 12/05/24 12/05/24 12/04/24 History with inhalation device (Spiriva with HandiHaler) Physical Exam Vital Signs and Narrative: Vital Signs: Last Vital Signs Temp 99.6 F 12/05/24 17:16 Pulse 83 12/05/24 17:16 Resp 20 12/05/24 17:16 BP 147/90 H 12/05/24 17:16 Pulse Ox 96 12/05/24 17:16 O2 Del Method Room Air 12/05/24 17:16 BMI result Body Mass Index 21.6 Const: Other: Constitutional : Awake, interactive, not in distress Neck : Normal inspection, Supple Cardiovascular : RRR, no JVP, no lower extremity edema Respiratory : good bilateral air entry, no crackles, wheezes or rhonchi Gastrointestinal: soft, lax, Normal bowel sounds, LLQ pain with tenderness, no rebound Skin : Warm, Dry Neurological : Alert & oriented x3, No focal deficit Results Labs 12/06/24 04:49 12/06/24 04:49 Labs: Laboratory Results - last 24 hr 12/05/24 12/05/24 12/05/24 11:21 11:32 12:51 MCV 88.7 MCH 29.7 MCHC 33.5 RDW 12.6 Plt Count 183 MPV 10.9 Immature Gran % (Auto) Cancelled Neut % (Auto) Cancelled Lymph % (Auto) Cancelled [place] % (Auto) Cancelled Eos % (Auto) Cancelled Baso % (Auto) Cancelled Lymph # (Auto) Cancelled [place] # (Auto) Cancelled Eos # (Auto) Cancelled Baso # (Auto) Cancelled Abs Immat Gran (auto) Cancelled Absolute Neuts (auto) Cancelled Absolute Nucleated RBC 0.000 Nucleated RBC % (auto) 0.0 Neutrophils % (Manual) 85 H Band Neutrophils % 9 H Lymphocytes % (Manual) 2 L Atypical Lymphs % (Man) Monocytes % (Manual) 3 Metamyelocytes % 1 Abs Neuts (Manual) 18.7 H Lymphocytes # (Manual) 0.4 L Atyp Lymphs # (Manual) Monocytes # (Manual) 0.6 Metamyelocytes # 0.2 Toxic Vacuolation Platelet Estimate NORMAL Plt Morphology Comment NORMAL RBC Morphology NORMAL PT 19.2 H INR 1.6 H Anion Gap 16 Estim Creat Clear Calc 36.0 Estimated GFR 45 Random Glucose 247 H Lactic Acid Lactic Acid F/U @ 2Hr Calcium 9.2 Magnesium 1.7 Total Bilirubin 0.5 Direct Bilirubin 0.1 AST 49 H ALT 24 Alkaline Phosphatase 113 Total Protein 7.3 Albumin 3.8 Lipase 15 Urine Color Urine Appearance Urine pH Ur Specific [place] Urine Protein Urine Glucose (UA) Urine Ketones Urine Blood Urine Nitrite Ur Leukocyte Esterase Urine RBC Urine WBC Ur Squamous Epith Cells Urine Bacteria Hyaline Casts Granular Casts Stool Occult Blood POSITIVE 12/05/24 12/05/24 12/05/24 13:26 14:34 16:05 MCV 87.1 MCH 30.2 MCHC 34.7 RDW 12.7 Plt Count 171 MPV 10.4 Immature Gran % (Auto) Cancelled Neut % (Auto) Cancelled Lymph % (Auto) Cancelled [place] % (Auto) Cancelled Eos % (Auto) Cancelled Baso % (Auto) Cancelled Lymph # (Auto) Cancelled [place] # (Auto) Cancelled Eos # (Auto) Cancelled Baso # (Auto) Cancelled Abs Immat Gran (auto) Cancelled Absolute Neuts (auto) Cancelled Absolute Nucleated RBC 0.000 Nucleated RBC % (auto) 0.0 Neutrophils % (Manual) 64 Band Neutrophils % 18 H Lymphocytes % (Manual) 2 L Atypical Lymphs % (Man) 1 Monocytes % (Manual) 14 H Metamyelocytes % 1 Abs Neuts (Manual) 16.7 H Lymphocytes # (Manual) 0.4 L Atyp Lymphs # (Manual) 0.2 Monocytes # (Manual) 2.9 H Metamyelocytes # 0.2 Toxic Vacuolation PRESENT Platelet Estimate NORMAL Plt Morphology Comment NORMAL RBC Morphology NOTED PT INR Anion Gap Estim Creat Clear Calc Estimated GFR Random Glucose Lactic Acid 2.4 H* Lactic Acid F/U @ 2Hr Calcium Magnesium Total Bilirubin Direct Bilirubin AST ALT Alkaline Phosphatase Total Protein Albumin Lipase Urine Color Dark Yellow Urine Appearance Clear Urine pH 5.5 Ur Specific [place] 1.020 Urine Protein Negative Urine Glucose (UA) 100 H Urine Ketones Trace Urine Blood Negative Urine Nitrite Negative Ur Leukocyte Esterase Trace H Urine RBC 0-2 Urine WBC 6-10 H Ur Squamous Epith Cells 11-20 Urine Bacteria None Seen Hyaline Casts 6-10 Granular Casts Present Stool Occult Blood 12/05/24 16:48 MCV MCH MCHC RDW Plt Count MPV Immature Gran % (Auto) Neut % (Auto) Lymph % (Auto) [place] % (Auto) Eos % (Auto) Baso % (Auto) Lymph # (Auto) [place] # (Auto) Eos # (Auto) Baso # (Auto) Abs Immat Gran (auto) Absolute Neuts (auto) Absolute Nucleated RBC Nucleated RBC % (auto) Neutrophils % (Manual) Band Neutrophils % Lymphocytes % (Manual) Atypical Lymphs % (Man) Monocytes % (Manual) Metamyelocytes % Abs Neuts (Manual) Lymphocytes # (Manual) Atyp Lymphs # (Manual) Monocytes # (Manual) Metamyelocytes # Toxic Vacuolation Platelet Estimate Plt Morphology Comment RBC Morphology PT INR Anion Gap Estim Creat Clear Calc Estimated GFR Random Glucose Lactic Acid Lactic Acid F/U @ 2Hr 2.2 H* Calcium Magnesium Total Bilirubin Direct Bilirubin AST ALT Alkaline Phosphatase Total Protein Albumin Lipase Urine Color Urine Appearance Urine pH Ur Specific [place] Urine Protein Urine Glucose (UA) Urine Ketones Urine Blood Urine Nitrite Ur Leukocyte Esterase Urine RBC Urine WBC Ur Squamous Epith Cells Urine Bacteria Hyaline Casts Granular Casts Stool Occult Blood Imaging Radiologist's Impressions: Impressions Abdomen/Pelvis CT 12/05/24 13:34 IMPRESSION: Diffuse acute colitis with questionable active bleed in the splenic colonic flexure. Discussed with the requesting physician medical assistant instructor, Sandra Neff in the emergency department at 2:38 PM Fleischner guidelines were followed. 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 Sepsis secondary to acute colitis acute lactic acidosis, bandemia and leukocytosis CT scan as reported Start IVF pending cultures and stool panel IV Zosyn GI and surgery evaluation keep NPO Anxiety Zanax prn HTN Amlodipine PAF Flecainide , Propranolol? , Xarelto on hold COPD home inhalers PRN NEbs DVT PPx SCDs The patient will need 2 overnight hospital stay for treatment of sepsis secondary to acute colitis pending tolerance to diet and specialists input. Quality Stroke Does the patient have a stroke diagnosis?: No VTE Prior VTE?: No VTE Risk Level:: Medical - moderate - high VTE Device Contraindication: N/A - Device Ordered VTE Drug Contraindication: Treatment Not Indicated
[2024-12-05 18:52] LABS: Reflex Lactate? 2 Y
--- NOTE | 2024-12-05 19:04 | PHA.MEDREC ---
Addendum entered by Phong Wu RPh 12/05/24 20:19: Med rec was reviewed by [facility]. Patient confirmed with Rae that she is taking alprazolam 0.25 mg bid and that she is still taking xarelto 20 mg daily. Original Note: Pharmacy Consult ? Medication Reconciliation Pharmacy has completed the medication reconciliation. Spoke to patient to confirm med list. Patient states she is no longer taking Amlodipine 5 mg, Suboxone 2 mg (patient stooped taking. Says she doesn't care for it) Buspirone 10 mg (now on 15 mg), and Mupirocin 2% cream. Patient states she uses Ketoconazole 2% shampoo daily NOT Twice a week like it was prescribed.
--- NOTE | 2024-12-05 19:23 | PM.EVENT ---
Event Note Date of Service: 12/05/24 Event Note: GI Consult-Full note dictated-History from patient and EMR Imp: Acute colitis with associated bloody diarrhea, left-sided abdominal discomfort and tenderness, leukocytosis, and abnormal CT scan. She presently appears stable and nontoxic. She has had no further bleeding or diarrhea since arrival in the ER. She does have some tenderness in the LLQ, but has good BS and a soft abdomen otherwise. She describes 3 rounds of Amoxicillin earlier this year for some dermatologic issue. Denies NSAIDs, ill contacts, travel, nor suspicious food intake. Her last colonoscopy was > 10 years ago. Diff dx: Infectious colitis(R/O C.diff), ischemic colitis; doubt IBD Rec: Check stool specimens when available. IV antibiotics given her tenderness, elevated lactate, and elevated WBC. Follow labs. Hold Xarelto. IV Vit K. Clear liqs. Will hold off on colonoscopy for the time being given the acuity of the episode and presumed diagnosis of infectious colitis. Will follow. D/W patient in detail. Thanks Time Spent With Patient Time: Total time managing care of this patient today ____ minutes.
[2024-12-05] MEDS: Phytonadione (Vit K1) 10 MG in 0.9 % Sodium Chloride 50 ML 51 MG IV (19:35)
[2024-12-05] MEDS: Morphine Sulfate 4 MG/ML CARTRIDGE 2 MG IVPUSH ×2 (19:37→23:53)
[2024-12-05] MEDS: Flecainide Acetate 50 MG TABLET 100 MG PO (19:40)
[2024-12-05] MEDS: Piperacillin Sodium/Tazobactam 2.25 GM in 0.9 % Sodium Chloride 50 ML IV (19:40)
[2024-12-05] MEDS: Lactated Ringers 1,000 ML 60 ML IVCONT (19:48)
[2024-12-05 19:54] LABS: ~Lactic Acid-LAB USE ONLY 2.5 mmol/L (0.5-2.0)
--- NOTE | 2024-12-05 23:18 | P.CONGS_ITS ---
History of Present Illness Consult details Consult date: 12/05/24 Requesting physician: Sandra Neff Narrative: The patient is a 79-year-old female with multiple medical problems who comes into the hospital after having an episode of bright red blood per rectum and abdominal pain earlier today. She has not been feeling well for the last couple days but has never had anything like this before. Here her white count was elevated her lactic acid was little elevated as well. She was tender in the left lower quadrant. CT scan of her abdomen and pelvis was carried out which shows diffuse colitis question in the area of extravasation of blood in the splenic area. There is a questionable history of her taking some antibiotics in the not so distant past. She denies any fevers or chills. She does smoke some alcohol intake as well. Repeat H&H in the ER did have a drop in her crit but she was also resuscitated and was feeling a little bit better. She did not look acutely sick. On exam she was tender in the left lower quadrant Patient has a past history of an ectopic and had surgery for this. She has AFib been as on Eliquis for it but she admits that she has not been taking it for last couple of days. She is not entirely sure why. Review of Systems 2 Review of Systems: Yes all other systems are reviewed and are negative PMFSH Past Medical History Medical History Rheumatoid arthritis Upper respiratory tract infection Skin lesion of face Skin abscess Hospital discharge follow-up Laceration of elbow, right Contusion of elbow, right Right knee skin infection Knee pain Pacemaker Sinus pause Opioid use disorder COPD with acute exacerbation COPD (chronic obstructive pulmonary disease) Left knee pain Paroxysmal atrial fibrillation Knee pain Abdominal pain Smoker Neurodermatitis COPD exacerbation Scalp abscess Vaginal discharge Skin lesion Osteoarthritis of thoracic spine Anxiety Family History Family History Father No problems noted. Mother No problems noted. Surgical History Surgical History History of basal cell carcinoma (BCC) excision Mammogram declined History of bilateral cataract extraction History of ectopic History of hip replacement History of nasal surgery Social History Social History Household Members: None Housing: Apartment Do you presently have visiting nurse or other home services: No Alcohol intake: former Patient Tobacco Use Status: Never used Tobacco Tobacco use type: Cigarette Cigarettes Per Day: 6 Years Smoked: 50 Smoked in Last 30 Days: No e-Cigarette/Vaping Use: Never Used Second Hand Smoke Exposure: Yes Use of substances other than those prescribed or required for medical reasons: No Advance Directives: Yes Advance Directives Information Provided: No Advance Directives on File: No Do you have a plan to hurt others: No Plan Nutrition Risks: No Nutritional Risk service: No Current occupational status: retired and disabled Cognitive needs: Yes Hearing needs: No Vision needs: No Meds Allergies Allergy/AdvReac Type Severity Reaction Status Date / Time succinylcholine Allergy Severe EXCESSIVE Verified 12/05/24 10:56 [SUCCINYLCHOLINE] PARALYSIS tramadol Allergy Intermediate diarrhea, Verified 12/05/24 10:56 upset stomach cat dander [CATS] Allergy Mild UNKNOWN Verified 12/05/24 10:56 dog dander [DOGS] Allergy Mild UNKNOWN Verified 12/05/24 10:56 pollen extracts [POLLEN] Allergy Mild UNKNOWN Verified 12/05/24 10:56 gabapentin AdvReac Mild Nausea and Verified 12/05/24 10:56 Vomiting DUST Allergy Mild UNKNOWN Uncoded 12/05/24 10:56 Active Medications: Current Medications Acetaminophen (Acetaminophen 325 Mg Tablet) 650 mg PO Q6H PRN PRN Reason: Pain, Mild 1-3,fever,headache Alprazolam (Alprazolam 0.25 Mg Tablet) 0.25 mg PO TID PRN PRN Reason: anxiety/restlessness Flecainide Acetate (Flecainide Acetate 50 Mg Tablet) 100 mg PO BID [facility] Last Admin: 12/05/24 19:40 Dose: 100 mg Lactated Ringer's (Lr) 1,000 mls @ 60 mls/hr IVCONT .[id number] [facility] Last Admin: 12/05/24 19:48 Dose: 60 mls/hr Piperacillin Sod/Tazobactam (Sod 2.25 gm/ Sodium Chloride) 50 mls @ 100 mls/hr IV Q6H [facility] Last Infusion: 12/05/24 21:12 Dose: Infused Morphine Sulfate (Morphine Sulfate 4 Mg/Ml Cartridge) 2 mg IVPUSH Q4H PRN; Protocol PRN Reason: Pain, Severe (Pain Scale 7-10) Last Admin: 12/05/24 19:37 Dose: 2 mg Ondansetron HCl (Ondansetron Hcl 4 Mg/2 Ml Vial) 4 mg IVPUSH Q8H PRN PRN Reason: Nausea and Vomiting Home Medications ?Medication ?Instructions ?Recorded ?Confirmed ?Last Taken ?Type alprazolam 0.25 mg tablet 0.25 mg PO BID 06/11/24 12/05/24 12/04/24 History fluticasone furoate 100 1 inh inhalation DAILY 06/11/24 12/05/24 12/04/24 History mcg-vilanterol 25 mcg/dose inhalation powder (Breo Ellipta) propranolol 60 mg capsule,24 60 mg PO DAILY 06/11/24 12/05/24 12/04/24 History hr,extended release rivaroxaban 20 mg tablet (Xarelto) 20 mg PO DAILY 06/11/24 12/05/24 12/04/24 History buspirone 15 mg tablet 15 mg PO BID 12/05/24 12/05/24 12/04/24 History clobetasol 0.05 % topical cream 1 appl topical BID 12/05/24 12/05/24 12/04/24 History hydroxyzine HCl 25 mg tablet 25 mg PO TID 12/05/24 12/05/24 12/04/24 History ketoconazole 2 % shampoo 1 appl topical DAILY 12/05/24 12/05/24 12/04/24 History tiotropium bromide 18 mcg capsule 1 cap inhalation DAILY 12/05/24 12/05/24 12/04/24 History with inhalation device (Spiriva with HandiHaler) Physical Exam 2 Vital Signs: Vital Signs: Last Vital Signs Temp 98.6 F 12/05/24 21:30 Pulse 73 12/05/24 21:30 Resp 20 12/05/24 21:30 BP 143/67 H 12/05/24 21:30 Pulse Ox 93 12/05/24 21:30 O2 Del Method Room Air 12/05/24 21:30 BMI result Body Mass Index 21.6 Const: General: cooperative, acute distress mild and tired appearing N utritional Appearance: thin Orientation/consciousness: patient oriented x3 Eyes: Other: Nonicteric Resp: Effort & Inspection: normal respiratory effort Auscultation: clear to auscultation bilaterally Cardio: Rate: regular rate Rhythm: regular rhythm GI: Other: Abdomen is soft tender in the left lower quadrant with some guarding no rebound no peritonitis. Active bowel sounds. No masses are noted. Healed midline incision Skin: General skin exam: no rashes or lesions noted Neuro: General: patient oriented x3 Extrem: General: Yes normal to inspection Psych: Mental Status: mental status grossly normal Speech and movement: N ormal speech and movement present Affect: normal affect Attitude: c ooperative Thought process: Normal thought process present Thought content: Normal thought content present Insight: Good insight present (Psych) Judgement: Good judgement present (Psych) Results Labs 12/05/24 16:05 12/05/24 11:21 Labs: Abnormal lab results 12/05/24 12/05/24 12/05/24 Range/Units 11:21 12:51 13:26 WBC 19.9 H (4.8-10.8) X10*3/uL Hgb 16.1 H D (12.0-16.0) g/dl Hct 48.1 H (37.0-47.0) % Neutrophils % (Manual) 85 H (45-73) % Band Neutrophils % 9 H (3-5) % Lymphocytes % (Manual) 2 L (20-40) % Monocytes % (Manual) (2-11) % Abs Neuts (Manual) 18.7 H (2.0-8.3) X10*3/uL Lymphocytes # (Manual) 0.4 L (1.2-4.9) X10*3/uL Monocytes # (Manual) (0.1-1.2) X10*3/uL PT 19.2 H (10.9-12.4) SEC INR 1.6 H (0.9-1.1) BUN 23 H (9-16) mg/dL Random Glucose 247 H (60-115) mg/dL Lactic Acid (0.5-2.0) mmol/L Lactic Acid F/U @ 2Hr (0.5-2.0) mmol/L Lactic Acid F/U @ 4Hr (0.5-2.0) mmol/L AST 49 H (5-31) U/L Urine Glucose (UA) 100 H (Negative) mg/dL Ur Leukocyte Esterase Trace H (Negative) Urine WBC 6-10 H (0-5) /HPF 12/05/24 12/05/24 12/05/24 Range/Units 14:34 16:05 16:48 WBC 20.4 H (4.8-10.8) X10*3/uL Hgb (12.0-16.0) g/dl Hct (37.0-47.0) % Neutrophils % (Manual) (45-73) % Band Neutrophils % 18 H (3-5) % Lymphocytes % (Manual) 2 L (20-40) % Monocytes % (Manual) 14 H (2-11) % Abs Neuts (Manual) 16.7 H (2.0-8.3) X10*3/uL Lymphocytes # (Manual) 0.4 L (1.2-4.9) X10*3/uL Monocytes # (Manual) 2.9 H (0.1-1.2) X10*3/uL PT (10.9-12.4) SEC INR (0.9-1.1) BUN (9-16) mg/dL Random Glucose (60-115) mg/dL Lactic Acid 2.4 H* (0.5-2.0) mmol/L Lactic Acid F/U @ 2Hr 2.2 H* (0.5-2.0) mmol/L Lactic Acid F/U @ 4Hr (0.5-2.0) mmol/L AST (5-31) U/L Urine Glucose (UA) (Negative) mg/dL Ur Leukocyte Esterase (Negative) Urine WBC (0-5) /HPF 12/05/24 Range/Units 19:18 WBC (4.8-10.8) X10*3/uL Hgb (12.0-16.0) g/dl Hct (37.0-47.0) % Neutrophils % (Manual) (45-73) % Band Neutrophils % (3-5) % Lymphocytes % (Manual) (20-40) % Monocytes % (Manual) (2-11) % Abs Neuts (Manual) (2.0-8.3) X10*3/uL Lymphocytes # (Manual) (1.2-4.9) X10*3/uL Monocytes # (Manual) (0.1-1.2) X10*3/uL PT (10.9-12.4) SEC INR (0.9-1.1) BUN (9-16) mg/dL Random Glucose (60-115) mg/dL Lactic Acid (0.5-2.0) mmol/L Lactic Acid F/U @ 2Hr (0.5-2.0) mmol/L Lactic Acid F/U @ 4Hr 2.5 H* (0.5-2.0) mmol/L AST (5-31) U/L Urine Glucose (UA) (Negative) mg/dL Ur Leukocyte Esterase (Negative) Urine WBC (0-5) /HPF Short CBC 12/05/24 12/05/24 Range/Units 11:21 16:05 WBC 19.9 H 20.4 H (4.8-10.8) X10*3/uL Hgb 16.1 H D 14.0 (12.0-16.0) g/dl Hct 48.1 H 40.4 (37.0-47.0) % Plt Count 183 171 (160-400) X10*3/uL BMP 12/05/24 11:21 Sodium 139 Potassium 4.5 Chloride 106 Carbon Dioxide 22 BUN 23 H Creatinine 1.16 Calcium 9.2 Liver Function 12/05/24 Range/Units 11:21 Total Bilirubin 0.5 (0.0-1.0) mg/dL Direct Bilirubin 0.1 (0.0-0.5) mg/dL AST 49 H (5-31) U/L ALT 24 (0-31) U/L Alkaline Phosphatase 113 (39-117) U/L Albumin 3.8 (3.5-5.0) g/dL Urine 12/05/24 Range/Units 13:26 Urine Color Dark Yellow Urine Appearance Clear Urine pH 5.5 (5.0-9.0) Ur Specific [place] 1.020 (1.005-1.025) Urine Protein Negative (Neg-Trace) mg/dL Urine Glucose (UA) 100 H (Negative) mg/dL All other labs normal. Imaging Additional studies: [address] [address] [address] Scan Report Signed Patient: Yamileth Sandoval MR#: [id number] : 1945 Acct:[id number] Age/Sex: 79 / F ADM Date: 12/05/24 Loc: HO.ED Attending Dr: Ordering Physician: Sandra Neff Date of Service: 12/05/24 Procedure(s): CT gi bleed abd pel wo/w IVcon Accession Number(s): [id number] cc: Sandra Neff; Fany Bobby MD~ Report Number: [id number]: Total DLP = 793.00 mGy-cm EXAMINATION: CT ABDOMEN AND PELVIS WITHOUT AND WITH CONTRAST CLINICAL INFORMATION: Bloody stools/melena. Left lower quadrant abdominal pain. COMPARISON: Noncontrast CT dated January 03, 2024. TECHNIQUE: Multidetector volumetric imaging was performed of the abdomen and pelvis before and after the IV administration of 85 mL of Omnipaque 350 strength intravenous contrast. Sagittal and coronal reformatted images were obtained on the technologist's workstation. No reported immediate complications were This CT examination was performed using dose optimization techniques as appropriate, variously including the following: *Automated exposure control *Adjustment of mA and/or kV according to patient size (this includes techniques or standardized protocols for targeted exams where dose is matched to indication/reason for exam; i.e. extremities or head) *Use of iterative reconstruction technique. DLP: 793 mGy centimeter. FINDINGS: LUNG BASES: Patchy pulmonary groundglass in the lung bases. Emphysematous changes. LIVER, GALLBLADDER, AND BILIARY TREE: Liver measures 13 cm in maximum length. Nodular surface. There are few scattered less than 1 cm hypodense lesions throughout the right and left hepatic lobes. The main portal vein, hepatic veins and intrahepatic portion of the IVC are patent. The umbilical vein is not patent. Mild prominent intrahepatic biliary ductal system. No pericholecystic fluid collection or gallbladder wall thickening. The common bile duct measures 4 mm. PANCREAS: 4 mm main pancreatic duct. No gross focal mass. Reduced volume of the pancreatic parenchyma. SPLEEN: 7 cm. No focal lesion. ADRENAL GLANDS: Soft tissue fullness in the right adrenal gland which measures -8 Hounsfield units on the noncontrast phase. Soft tissue fullness left adrenal gland which measures 4 Hounsfield units in the noncontrast phase. KIDNEYS AND URETERS: No gross renal mass. No hydronephrosis. Punctate calcifications in both renal hilum probable vascular. Normal enhancement pattern of the renal parenchyma and normal urinary excretion into the collecting system. BLADDER: Limited evaluation due to being hardening artifact secondary to the metallic prosthesis both hips. GASTROINTESTINAL TRACT: There is a diffuse entire colonic concentric edematous wall with enhancement of the mucosa and the wall resulting in reduced diameter of the lumen. There is some subtle arterial phase enhancing lesion within the splenic colonic flexure No pneumatosis intestinalis. No intestinal obstruction pattern. There is abundant stool within the large intestine. There is a collapsed appearance of the small bowel loops. I do not see the appendix. No pneumoperitoneum. No ascites. No peripheral enhancing fluid collection.. ABDOMINAL WALL: No gross umbilical hernia. There is a fat-containing left inguinal/femoral hernia. LYMPH NODES: Nonspecific prominent lymph nodes, retroperitoneum. VASCULAR: Irregular shaped mixed plaques throughout the abdominal aorta wall and descending thoracic aorta, the origin of the main renal arteries and the mesenteric arteries as well as the iliac arteries. Calcified plaques in the splenic artery with the tortuosity. There is an electrode leads in the right heart chambers. PELVIC VISCERA: Unable to elevate. OSSEOUS STRUCTURES: Status post bilateral hip arthroplasty prosthesis resulting in beam hardening artifact that appear intact with normal alignment. There is a levoconvex rotoscoliosis apex at L2-3. Likely old compression deformities, thoracolumbar spine more conspicuous at L4, L2 and L1 resulting in 50% volume loss. There is a bone marrow inhomogeneity throughout the axial skeleton. CT/CT gi bleed abd pel wo/w IVcon IMPRESSION: Diffuse acute colitis with questionable active bleed in the splenic colonic flexure. Discussed with the requesting physician actuarial assistant, Sandra Neff in the emergency department at 2:38 PM Fleischner guidelines were followed. Electronically signed by: Mathew Rawls MD 12/05/2024 02:53 PM [facility] [place] Dictated By: Mathew Santos MD Signed By: <Electronically signed by Mathew Zuleta MD in OV> 12/05/24 4817 DD/ 1334 TD/TT: 12/05/24 1422 Hospitality Aide: Assessment and Plan (1) Infectious colitis: Status: Acute Plan 79-year-old female with elevated white count tender in the left lower quadrant CT scan showing acute colitis most likely infectious versus ischemic. Patient questionably anticoagulated currently although she has not been taken her medication. At this point despite her white count and bandemia carrying out medical resuscitation and treatment with antibiotics IV is most appropriate. Patient is stating that she has had surgeries in the past and she does want to have anymore surgeries. She has a pacemaker and she thinks that she has had enough and would prefer no further surgeries. We did talk about the seriousness if she does not respond to the antibiotics and will reassess the need for surgical procedure at that point in time. She is agreeing to reassess but would rather not have surgery. At this point her abdomen is tender but no pressing indications to carry out emergent surgical intervention. GI has also evaluated the patient and come to similar conclusions. We will observe and follow along. Procedures Date of Service Date of Service: 12/05/24
[2024-12-05] MEDS: ALPRAZolam 0.25 MG TABLET PO (23:53)
[2024-12-06] VITALS (13 sets, daily range): BP systolic 118–182; BP diastolic 70–106; PULSE 62–85; RESP 14–24; TEMP 36.8–37.3; O2SAT 94–98; BMI 18.2
[2024-12-06] MEDS: Morphine Sulfate 4 MG/ML CARTRIDGE 2 MG IVPUSH ×5 (03:24→20:18)
[2024-12-06] MEDS: Piperacillin Sodium/Tazobactam 2.25 GM in 0.9 % Sodium Chloride 50 ML IV ×4 (03:28→20:16)
--- NOTE | 2024-12-06 03:46 | CONS_ITS ---
DATE OF SERVICE: 12/05/2024 REASON FOR CONSULTATION: Bloody diarrhea, abdominal pain, and abnormal CT scan of colon. HISTORY OF PRESENT ILLNESS: This has been obtained from the patient and the medical record. The patient is a 79-year-old female, who describes that she was in her usual state of health up until early this morning when she was awakened with a sudden urge to have a bowel movement. This was associated with left-sided abdominal pain, particularly in the left lower quadrant. She began having bloody diarrhea on multiple occasions. She denies any associated vomiting. She called an ambulance and came to the ER. The patient denies any preceding GI complaints other than intermittent constipation. She describes a normal bowel movement either yesterday or the day before. She describes a colonoscopy well over 10 years ago, but is not really sure about the results. She denies any chronic problems in herself such as diarrhea or bleeding. The patient does smoke currently and also has history of alcohol abuse, but reports sobriety from that over the past month or so. She does not use any chronic NSAIDs and denies any recent ill contacts, travel, nor suspicious food intake. However, she does describe having taken 2 or 3 courses of amoxicillin recently for some dermatologic issue, although she thinks she finished her most recent course at least a week or two ago. Since arrival in the ER, she has had no further diarrhea, nor bleeding. She still has some left-sided abdominal discomfort. While in the ER, she did have a temperature spike of 101.3. Vital signs have otherwise been stable. She denies any known family history of colorectal cancer nor inflammatory bowel disease. She denies any significant upper GI symptoms such as significant heartburn, dysphagia, nor early satiety. MEDICATIONS: At home included alprazolam, buspirone, flecainide, hydroxyzine, lisinopril, propranolol, and Xarelto. Her medications here in the hospital thus far include IV Zosyn, Xanax, flecainide, morphine p.r.n., Zofran p.r.n. PAST MEDICAL HISTORY: COPD. Arthritis. Previous history of substance abuse. History of alcohol abuse. Chronic tobacco use. Atrial fibrillation. COPD. She denies a history of [place], stroke, or diabetes. She describes a tubal and a pacemaker. SOCIAL HISTORY: As above. She does smoke. She lives by herself. She describes alcohol abuse, but with sobriety for the past month or so. REVIEW OF SYSTEMS: CONSTITUTIONAL: She tends to feel sort of poorly at baseline. CARDIAC: No chest pain. PULMONARY: No coughing nor hemoptysis. GI: As above. URINARY: No dysuria, no hematuria. NEUROLOGIC: No headache or seizures. PHYSICAL EXAMINATION: GENERAL: The patient is an elderly, chronically ill-appearing female, in no acute distress. SKIN: Warm and dry. HEENT: Anicteric sclerae. NECK: Supple. CHEST: Reveals diminished breath sounds bilaterally. CARDIAC: Normal S1, S2. ABDOMEN: Soft. Normal bowel sounds. Nondistended. She does have some left-sided abdominal tenderness, particularly in the left lower quadrant, but without palpable mass. EXTREMITIES: Without edema. LABORATORY DATA: Initial white count was 19.9 and a followup was 20.4. Hemoglobin was 16.1, which decreased to 14.0. Normal MCV. Platelets 171,000. PT 19.2 with INR of 1.6. Normal chemistries. BUN 23, creatinine 1.2. Lactic acid level 2.4, which decreased to 2.2. LFTs normal with lipase of 15. Stool specimens have been ordered, but she has not produced any bowel movement as yet. Stool is heme positive. CT scan of her abdomen and pelvis describes a nodular liver surface, but patent portal vein. There is no sign of any biliary disease. Pancreas appeared normal. There was no splenomegaly. There was a diffuse thickening of the colon consistent with a colitis. There was a very questionable enhancing area in the splenic flexure consistent with possible bleeding. There was no obstruction or free air. There was no ascites. IMPRESSION: Patient is a 79-year-old female presenting with an acute colitis with an associated bloody diarrhea and some abdominal discomfort with tenderness. She does have a significant leukocytosis as well. However, she appears to be stable and nontoxic . She has had no further bleeding nor diarrhea since arrival in the emergency room. She does have some tenderness in the left lower quadrant, but her abdominal exam was otherwise benign. Given her description of having been on several rounds of amoxicillin fairly recently, this could be infectious colitis consistent with Clostridium difficile. Another possibility would be ischemic colitis given the acute onset and her risk factors, although I think the distribution of the CT scan abnormalities would be rather atypical. I doubt this represents inflammatory bowel disease. At this point, I would check stool specimens when they become available. Given the abdominal tenderness, leukocytosis, and elevated lactate level, I would agree with IV antibiotics otherwise at the present time. I would follow up laboratories in the morning. I would continue to hold the Xarelto and give her a dose of vitamin K intravenously given the prolonged PT with INR. I would continue clear liquids for now. I would hold off on colonoscopy for the time being given the acuity of the episode and presumed diagnosis of possible infectious colitis. Certainly if she does not improve, then she may need an eventual colonoscopy for diagnostic purposes at that time. Based on her CT scan, clinical history and elevated PT with INR, she may have a component of underlying chronic liver disease as well in relation to her history of alcohol use. However, at the present time, there is no sign of any liver decompensation. This has all been discussed with the patient in detail and she is comfortable with the plan. Thank you for the consultation. MD SCAR Barrera/BERTIN / [phone] MTDKeo
[2024-12-06 04:02] LABS: CDiff Gene PCR NEGATIVE (Negative)
[2024-12-06 05:08] LABS: Hematocrit 39.1 % (37.0-47.0); Hemoglobin 13.2 g/dl (12.0-16.0); Mean Corpuscular HGB Conc 33.8 g/dl (31.0-35.0); Mean Corpuscular Hemoglobin 30.1 pg (27.0-33.0); Mean Corpuscular Volume 89.3 fL (80.0-98.0); Mean Platelet Volume 10.9 fL (9.4-12.3); Platelet Count 155 X10*3/uL (160-400); Red Blood Count 4.38 X10*6/uL (4.20-5.50); Red Cell Distribution Width 12.7 % (11.0-16.0); WBC ABN SCTR FOR CBC 1
[2024-12-06 05:10] LABS: White Blood Count 18.5 X10*3/uL (4.8-10.8)
[2024-12-06 05:14] LABS: INTERNATIONAL NORM RATIO 1.4 (0.9-1.1); Prothrombin Time 16.2 SEC (10.9-12.4)
[2024-12-06 05:24] LABS: Alanine Aminotransferase 8 U/L (0-31); Albumin Level 3.1 g/dL (3.5-5.0); Alkaline Phosphatase 107 U/L (39-117); Anion Gap 13 (12-20); Aspartate Amino Transferase 28 U/L (5-31); Bilirubin Total 0.6 mg/dL (0.0-1.0); Blood Urea Nitrogen 19 mg/dL (9-16); Calcium 8.4 mg/dL (8.4-10.2); Carbon Dioxide 23 mmol/L (22-29); Chloride 108 mmol/L (96-108); Creatinine Clr Calc Pharmacy 59.6; Estimated Glomerular Filt Rate > 60; Glucose Random 91 mg/dL (60-115); Potassium 3.6 mmol/L (3.3-5.1); Sodium 140 mmol/L (135-145)
[2024-12-06 05:37] LABS: Band Neutrophils Percent 12 % (3-5); Lymphocytes Absolute Manual 0.9 X10*3/uL (1.2-4.9); Lymphocytes Percent Manual 5 % (20-40); Monocytes Absolute Manual 1.7 X10*3/uL (0.1-1.2); Monocytes Percent Manual 9 % (2-11); Neutrophils Absolute Manual 15.9 X10*3/uL (2.0-8.3); Neutrophils Percent Manual 74 % (45-73); Platelet Estimate NORMAL (NORMAL); RBC Morphology NORMAL
[2024-12-06 05:38] LABS: Platelet Morphology Comment NORMAL
[2024-12-06] MEDS: Morphine Sulfate 4 MG/ML CARTRIDGE IVPUSH (06:14)
[2024-12-06] MEDS: Flecainide Acetate 50 MG TABLET 100 MG PO ×2 (09:29→20:17)
--- NOTE | 2024-12-06 10:06 | PM.PNGS ---
Subjective Subjective Date of Service: 12/07/24 Interval history: History reviewed She states she had blood stools yesterday Currently describes pain in the left groin, left lower quadrant and left side of the abdomen Physical Exam Vital Signs: Vital Signs: Last Vital Signs Temp 98.6 F 12/06/24 09:04 Pulse 79 12/06/24 09:04 Resp 18 12/06/24 09:04 BP 118/77 12/06/24 09:04 Pulse Ox 94 12/06/24 09:04 O2 Del Method Room Air 12/06/24 09:04 BMI result Body Mass Index 21.6 Const: General: no acute distress Resp: Effort & Inspection: normal respiratory effort GI: Other: Soft but with tenderness on the left side of the abdomen all the way to the left lower quadrant and the groin area; she does have this chronic fat containing left inguinal hernia Objective Data Active Medications Acetaminophen (Acetaminophen 325 Mg Tablet) 650 mg PO Q6H PRN PRN Reason: Pain, Mild 1-3,fever,headache Alprazolam (Alprazolam 0.25 Mg Tablet) 0.25 mg PO TID PRN PRN Reason: anxiety/restlessness Last Admin: 12/05/24 23:53 Dose: 0.25 mg Documented By: ORQUIDEA Flecainide Acetate (Flecainide Acetate 50 Mg Tablet) 100 mg PO BID [facility] Last Admin: 12/06/24 09:29 Dose: 100 mg Documented By: SHERRY Lactated Ringer's (Lr) 1,000 mls @ 60 mls/hr IVCONT .[id number] [facility] Last Admin: 12/05/24 19:48 Dose: 60 mls/hr Documented By: ORQUIDEA Piperacillin Sod/Tazobactam (Sod 2.25 gm/ Sodium Chloride) 50 mls @ 100 mls/hr IV Q6H [facility] Last Infusion: 12/06/24 08:58 Dose: Infused Documented By: SHERRY Morphine Sulfate (Morphine Sulfate 4 Mg/Ml Cartridge) 2 mg IVPUSH Q4H PRN; Protocol PRN Reason: Pain, Severe (Pain Scale 7-10) Last Admin: 12/06/24 08:28 Dose: 2 mg Documented By: SEHRRY Ondansetron HCl (Ondansetron Hcl 4 Mg/2 Ml Vial) 4 mg IVPUSH Q8H PRN PRN Reason: Nausea and Vomiting Labs 12/07/24 06:03 12/07/24 06:03 Labs: Laboratory Results - last 24 hr 12/05/24 12/05/24 12/05/24 11:21 11:32 12:51 MCV 88.7 MCH 29.7 MCHC 33.5 RDW 12.6 Plt Count 183 MPV 10.9 Immature Gran % (Auto) Cancelled Neut % (Auto) Cancelled Lymph % (Auto) Cancelled [place] % (Auto) Cancelled Eos % (Auto) Cancelled Baso % (Auto) Cancelled Lymph # (Auto) Cancelled [place] # (Auto) Cancelled Eos # (Auto) Cancelled Baso # (Auto) Cancelled Abs Immat Gran (auto) Cancelled Absolute Neuts (auto) Cancelled Absolute Nucleated RBC 0.000 Nucleated RBC % (auto) 0.0 Neutrophils % (Manual) 85 H Band Neutrophils % 9 H Lymphocytes % (Manual) 2 L Atypical Lymphs % (Man) Monocytes % (Manual) 3 Metamyelocytes % 1 Abs Neuts (Manual) 18.7 H Lymphocytes # (Manual) 0.4 L Atyp Lymphs # (Manual) Monocytes # (Manual) 0.6 Metamyelocytes # 0.2 Toxic Vacuolation Platelet Estimate NORMAL Plt Morphology Comment NORMAL RBC Morphology NORMAL PT 19.2 H INR 1.6 H Anion Gap 16 Estim Creat Clear Calc 36.0 Estimated GFR 45 Random Glucose 247 H Lactic Acid Lactic Acid F/U @ 2Hr Lactic Acid F/U @ 4Hr Calcium 9.2 Magnesium 1.7 Total Bilirubin 0.5 Direct Bilirubin 0.1 AST 49 H ALT 24 Alkaline Phosphatase 113 Total Protein 7.3 Albumin 3.8 Lipase 15 Urine Color Urine Appearance Urine pH Ur Specific [place] Urine Protein Urine Glucose (UA) Urine Ketones Urine Blood Urine Nitrite Ur Leukocyte Esterase Urine RBC Urine WBC Ur Squamous Epith Cells Urine Bacteria Hyaline Casts Granular Casts Stool Occult Blood POSITIVE C. difficile Tox B Gene 12/05/24 12/05/24 12/05/24 13:26 14:34 16:05 MCV 87.1 MCH 30.2 MCHC 34.7 RDW 12.7 Plt Count 171 MPV 10.4 Immature Gran % (Auto) Cancelled Neut % (Auto) Cancelled Lymph % (Auto) Cancelled [place] % (Auto) Cancelled Eos % (Auto) Cancelled Baso % (Auto) Cancelled Lymph # (Auto) Cancelled [place] # (Auto) Cancelled Eos # (Auto) Cancelled Baso # (Auto) Cancelled Abs Immat Gran (auto) Cancelled Absolute Neuts (auto) Cancelled Absolute Nucleated RBC 0.000 Nucleated RBC % (auto) 0.0 Neutrophils % (Manual) 64 Band Neutrophils % 18 H Lymphocytes % (Manual) 2 L Atypical Lymphs % (Man) 1 Monocytes % (Manual) 14 H Metamyelocytes % 1 Abs Neuts (Manual) 16.7 H Lymphocytes # (Manual) 0.4 L Atyp Lymphs # (Manual) 0.2 Monocytes # (Manual) 2.9 H Metamyelocytes # 0.2 Toxic Vacuolation PRESENT Platelet Estimate NORMAL Plt Morphology Comment NORMAL RBC Morphology NOTED PT INR Anion Gap Estim Creat Clear Calc Estimated GFR Random Glucose Lactic Acid 2.4 H* Lactic Acid F/U @ 2Hr Lactic Acid F/U @ 4Hr Calcium Magnesium Total Bilirubin Direct Bilirubin AST ALT Alkaline Phosphatase Total Protein Albumin Lipase Urine Color Dark Yellow Urine Appearance Clear Urine pH 5.5 Ur Specific [place] 1.020 Urine Protein Negative Urine Glucose (UA) 100 H Urine Ketones Trace Urine Blood Negative Urine Nitrite Negative Ur Leukocyte Esterase Trace H Urine RBC 0-2 Urine WBC 6-10 H Ur Squamous Epith Cells 11-20 Urine Bacteria None Seen Hyaline Casts 6-10 Granular Casts Present Stool Occult Blood C. difficile Tox B Gene 12/05/24 12/05/24 12/06/24 16:48 19:18 03:00 MCV MCH MCHC RDW Plt Count MPV Immature Gran % (Auto) Neut % (Auto) Lymph % (Auto) [place] % (Auto) Eos % (Auto) Baso % (Auto) Lymph # (Auto) [place] # (Auto) Eos # (Auto) Baso # (Auto) Abs Immat Gran (auto) Absolute Neuts (auto) Absolute Nucleated RBC Nucleated RBC % (auto) Neutrophils % (Manual) Band Neutrophils % Lymphocytes % (Manual) Atypical Lymphs % (Man) Monocytes % (Manual) Metamyelocytes % Abs Neuts (Manual) Lymphocytes # (Manual) Atyp Lymphs # (Manual) Monocytes # (Manual) Metamyelocytes # Toxic Vacuolation Platelet Estimate Plt Morphology Comment RBC Morphology PT INR Anion Gap Estim Creat Clear Calc Estimated GFR Random Glucose Lactic Acid Lactic Acid F/U @ 2Hr 2.2 H* Lactic Acid F/U @ 4Hr 2.5 H* Calcium Magnesium Total Bilirubin Direct Bilirubin AST ALT Alkaline Phosphatase Total Protein Albumin Lipase Urine Color Urine Appearance Urine pH Ur Specific [place] Urine Protein Urine Glucose (UA) Urine Ketones Urine Blood Urine Nitrite Ur Leukocyte Esterase Urine RBC Urine WBC Ur Squamous Epith Cells Urine Bacteria Hyaline Casts Granular Casts Stool Occult Blood C. difficile Tox B Gene NEGATIVE 12/06/24 04:49 MCV 89.3 MCH 30.1 MCHC 33.8 RDW 12.7 Plt Count 155 L MPV 10.9 Immature Gran % (Auto) Cancelled Neut % (Auto) Cancelled Lymph % (Auto) Cancelled [place] % (Auto) Cancelled Eos % (Auto) Cancelled Baso % (Auto) Cancelled Lymph # (Auto) Cancelled [place] # (Auto) Cancelled Eos # (Auto) Cancelled Baso # (Auto) Cancelled Abs Immat Gran (auto) Cancelled Absolute Neuts (auto) Cancelled Absolute Nucleated RBC 0.000 Nucleated RBC % (auto) 0.0 Neutrophils % (Manual) 74 H Band Neutrophils % 12 H Lymphocytes % (Manual) 5 L Atypical Lymphs % (Man) Monocytes % (Manual) 9 Metamyelocytes % Abs Neuts (Manual) 15.9 H Lymphocytes # (Manual) 0.9 L Atyp Lymphs # (Manual) Monocytes # (Manual) 1.7 H Metamyelocytes # Toxic Vacuolation Platelet Estimate NORMAL Plt Morphology Comment NORMAL RBC Morphology NORMAL PT 16.2 H INR 1.4 H Anion Gap 13 Estim Creat Clear Calc 59.6 Estimated GFR > 60 Random Glucose 91 Lactic Acid Lactic Acid F/U @ 2Hr Lactic Acid F/U @ 4Hr Calcium 8.4 D Magnesium Total Bilirubin 0.6 Direct Bilirubin AST 28 ALT 8 Alkaline Phosphatase 107 Total Protein 6.0 L Albumin 3.1 L Lipase Urine Color Urine Appearance Urine pH Ur Specific [place] Urine Protein Urine Glucose (UA) Urine Ketones Urine Blood Urine Nitrite Ur Leukocyte Esterase Urine RBC Urine WBC Ur Squamous Epith Cells Urine Bacteria Hyaline Casts Granular Casts Stool Occult Blood C. difficile Tox B Gene Procedures Date of Service Date of Service: 12/07/24 Progress Note: A&P Assessment and plan (1) Abdominal pain: Status: Acute Assessment and Plan: I have reviewed her CAT scan - it appears that she was very thickened edematous looking sigmoid colon and left colon She has a fat containing left inguinal hernia Investigate for possible etiology of colitis Abdomen is soft benign although with tenderness IV hydration Okay to have clear liquids We will continue to follow Time Spent With Patient Time: Total time managing care of this patient today ____ minutes. Quality Stroke Does the patient have a stroke diagnosis?: No VTE Prior VTE?: No VTE Risk Level:: Medical - moderate - high VTE Device Contraindication: N/A - Device Ordered VTE Drug Contraindication: Treatment Not Indicated
--- NOTE | 2024-12-06 12:44 | HO.PM.IMPN ---
Subjective Subjective Date of Service: 12/06/24 Interval History: seen and evaluated this morning had 2 bloody bowel motions this morning denies fever LLQ pain no other events Review of Systems Abd pain LLQ blood stool chills Physical Exam Vital Signs: Vital Signs: Last Vital Signs Temp 98.6 F 12/06/24 09:04 Pulse 79 12/06/24 09:04 Resp 18 12/06/24 09:04 BP 118/77 12/06/24 09:04 Pulse Ox 94 12/06/24 09:04 O2 Del Method Room Air 12/06/24 09:04 BMI result Body Mass Index 21.6 Const: Other: Constitutional : Awake, interactive, not in distress Neck : Normal inspection, Supple Cardiovascular : RRR, no JVP, no lower extremity edema Respiratory : good bilateral air entry, no crackles, wheezes or rhonchi Gastrointestinal: soft, lax, Normal bowel sounds, LLQ pain with tenderness, no rebound Skin : Warm, Dry Neurological : Alert & oriented x3, No focal deficit Objective Data Active Medications Acetaminophen (Acetaminophen 325 Mg Tablet) 650 mg PO Q6H PRN PRN Reason: Pain, Mild 1-3,fever,headache Alprazolam (Alprazolam 0.25 Mg Tablet) 0.25 mg PO TID PRN PRN Reason: anxiety/restlessness Last Admin: 12/05/24 23:53 Dose: 0.25 mg Documented By: ORQUIDEA Flecainide Acetate (Flecainide Acetate 50 Mg Tablet) 100 mg PO BID [facility] Last Admin: 12/06/24 09:29 Dose: 100 mg Documented By: SHERRY Lactated Ringer's (Lr) 1,000 mls @ 60 mls/hr IVCONT .[id number] [facility] Last Admin: 12/05/24 19:48 Dose: 60 mls/hr Documented By: ORQUIDEA Piperacillin Sod/Tazobactam (Sod 2.25 gm/ Sodium Chloride) 50 mls @ 100 mls/hr IV Q6H [facility] Last Infusion: 12/06/24 08:58 Dose: Infused Documented By: SHERRY Morphine Sulfate (Morphine Sulfate 4 Mg/Ml Cartridge) 2 mg IVPUSH Q4H PRN; Protocol PRN Reason: Pain, Severe (Pain Scale 7-10) Last Admin: 12/06/24 12:25 Dose: 2 mg Documented By: SHERRY Ondansetron HCl (Ondansetron Hcl 4 Mg/2 Ml Vial) 4 mg IVPUSH Q8H PRN PRN Reason: Nausea and Vomiting Labs 12/06/24 04:49 12/06/24 04:49 Labs: Laboratory Results - last 24 hr 12/05/24 12/05/24 12/05/24 12:51 13:26 14:34 MCV MCH MCHC RDW Plt Count MPV Immature Gran % (Auto) Neut % (Auto) Lymph % (Auto) [place] % (Auto) Eos % (Auto) Baso % (Auto) Lymph # (Auto) [place] # (Auto) Eos # (Auto) Baso # (Auto) Abs Immat Gran (auto) Absolute Neuts (auto) Absolute Nucleated RBC Nucleated RBC % (auto) Neutrophils % (Manual) Band Neutrophils % Lymphocytes % (Manual) Atypical Lymphs % (Man) Monocytes % (Manual) Metamyelocytes % Abs Neuts (Manual) Lymphocytes # (Manual) Atyp Lymphs # (Manual) Monocytes # (Manual) Metamyelocytes # Toxic Vacuolation Platelet Estimate Plt Morphology Comment RBC Morphology PT 19.2 H INR 1.6 H Anion Gap Estim Creat Clear Calc Estimated GFR Random Glucose Lactic Acid 2.4 H* Lactic Acid F/U @ 2Hr Lactic Acid F/U @ 4Hr Calcium Total Bilirubin AST ALT Alkaline Phosphatase Total Protein Albumin Urine Color Dark Yellow Urine Appearance Clear Urine pH 5.5 Ur Specific [place] 1.020 Urine Protein Negative Urine Glucose (UA) 100 H Urine Ketones Trace Urine Blood Negative Urine Nitrite Negative Ur Leukocyte Esterase Trace H Urine RBC 0-2 Urine WBC 6-10 H Ur Squamous Epith Cells 11-20 Urine Bacteria None Seen Hyaline Casts 6-10 Granular Casts Present C. difficile Tox B Gene 12/05/24 12/05/24 12/05/24 16:05 16:48 19:18 MCV 87.1 MCH 30.2 MCHC 34.7 RDW 12.7 Plt Count 171 MPV 10.4 Immature Gran % (Auto) Cancelled Neut % (Auto) Cancelled Lymph % (Auto) Cancelled [place] % (Auto) Cancelled Eos % (Auto) Cancelled Baso % (Auto) Cancelled Lymph # (Auto) Cancelled [place] # (Auto) Cancelled Eos # (Auto) Cancelled Baso # (Auto) Cancelled Abs Immat Gran (auto) Cancelled Absolute Neuts (auto) Cancelled Absolute Nucleated RBC 0.000 Nucleated RBC % (auto) 0.0 Neutrophils % (Manual) 64 Band Neutrophils % 18 H Lymphocytes % (Manual) 2 L Atypical Lymphs % (Man) 1 Monocytes % (Manual) 14 H Metamyelocytes % 1 Abs Neuts (Manual) 16.7 H Lymphocytes # (Manual) 0.4 L Atyp Lymphs # (Manual) 0.2 Monocytes # (Manual) 2.9 H Metamyelocytes # 0.2 Toxic Vacuolation PRESENT Platelet Estimate NORMAL Plt Morphology Comment NORMAL RBC Morphology NOTED PT INR Anion Gap Estim Creat Clear Calc Estimated GFR Random Glucose Lactic Acid Lactic Acid F/U @ 2Hr 2.2 H* Lactic Acid F/U @ 4Hr 2.5 H* Calcium Total Bilirubin AST ALT Alkaline Phosphatase Total Protein Albumin Urine Color Urine Appearance Urine pH Ur Specific [place] Urine Protein Urine Glucose (UA) Urine Ketones Urine Blood Urine Nitrite Ur Leukocyte Esterase Urine RBC Urine WBC Ur Squamous Epith Cells Urine Bacteria Hyaline Casts Granular Casts C. difficile Tox B Gene 12/06/24 12/06/24 03:00 04:49 MCV 89.3 MCH 30.1 MCHC 33.8 RDW 12.7 Plt Count 155 L MPV 10.9 Immature Gran % (Auto) Cancelled Neut % (Auto) Cancelled Lymph % (Auto) Cancelled [place] % (Auto) Cancelled Eos % (Auto) Cancelled Baso % (Auto) Cancelled Lymph # (Auto) Cancelled [place] # (Auto) Cancelled Eos # (Auto) Cancelled Baso # (Auto) Cancelled Abs Immat Gran (auto) Cancelled Absolute Neuts (auto) Cancelled Absolute Nucleated RBC 0.000 Nucleated RBC % (auto) 0.0 Neutrophils % (Manual) 74 H Band Neutrophils % 12 H Lymphocytes % (Manual) 5 L Atypical Lymphs % (Man) Monocytes % (Manual) 9 Metamyelocytes % Abs Neuts (Manual) 15.9 H Lymphocytes # (Manual) 0.9 L Atyp Lymphs # (Manual) Monocytes # (Manual) 1.7 H Metamyelocytes # Toxic Vacuolation Platelet Estimate NORMAL Plt Morphology Comment NORMAL RBC Morphology NORMAL PT 16.2 H INR 1.4 H Anion Gap 13 Estim Creat Clear Calc 59.6 Estimated GFR > 60 Random Glucose 91 Lactic Acid Lactic Acid F/U @ 2Hr Lactic Acid F/U @ 4Hr Calcium 8.4 D Total Bilirubin 0.6 AST 28 ALT 8 Alkaline Phosphatase 107 Total Protein 6.0 L Albumin 3.1 L Urine Color Urine Appearance Urine pH Ur Specific [place] Urine Protein Urine Glucose (UA) Urine Ketones Urine Blood Urine Nitrite Ur Leukocyte Esterase Urine RBC Urine WBC Ur Squamous Epith Cells Urine Bacteria Hyaline Casts Granular Casts C. difficile Tox B Gene NEGATIVE Microbiology Microbiology Results: Microbiology 12/05/24 Unknown Urine Culture - Preliminary Urine Other - Nephrostomy Culture too young to evaluate. 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 Sepsis secondary to acute colitis acute lactic acidosis, bandemia and leukocytosis CT scan as reported, concerning for infectious vs ischemic origin pending cultures and stool panel: Negative C.Diff continue IVF IV Zosyn GI input appreciated, treated with Abx, hold on Colonoscopy Surgery consulted, supportive therapy start clear liquids and advance as toelrated Follow H&H Anxiety Zanax prn HTN hold home meds. PAF Flecainide , Propranolol , Xarelto on hold COPD home inhalers PRN NEbs DVT PPx SCDs The patient will need overnight hospital stay for treatment of sepsis secondary to acute colitis pending tolerance to diet and specialists follow up Quality Stroke Does the patient have a stroke diagnosis?: No VTE Prior VTE?: No VTE Risk Level:: Medical - moderate - high VTE Device Contraindication: N/A - Device Ordered VTE Drug Contraindication: Treatment Not Indicated
[2024-12-06 12:54] LABS: Adenovirus F 40/41 Not Detected (Not Detect.); Astrovirus Not Detected (Not Detect.); Campylobacter Not Detected (Not Detect.); Cryptosporidium Not Detected (Not Detect.); Cyclospora cayetanensis Not Detected (Not Detect.); E. coli EAEC Not Detected (Not Detect.); E. coli EPEC Not Detected (Not Detect.); E. coli ETEC Not Detected (Not Detect.); E. coli STEC Not Detected (Not Detect.); Entamoeba histolytica Not Detected (Not Detect.); Giardia lamblia Not Detected (Not Detect.); Norovirus GI/GII Not Detected (Not Detect.); Plesiomonas shigelloides Not Detected (Not Detect.); Rotavirus A Not Detected (Not Detect.); Salmonella Not Detected (Not Detect.); Sapovirus Not Detected (Not Detect.); Shigella sp./EIEC Not Detected (Not Detect.); Vibrio Not Detected (Not Detect.); Vibrio Cholerae Not Detected (Not Detect.); Yersinia enterocolitica Not Detected (Not Detect.)
--- NOTE | 2024-12-06 13:28 | MHC.CM.PN ---
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 HCP is her dtr Anu, she declined to complete form. No DME. PCP confirmed: Fany Meza. She may need assistance with transport home at [place]. DCP: home with services. CM to follow for DC needs.
[2024-12-06] MEDS: Lactated Ringers 1,000 ML 60 ML IVCONT (14:11)
[2024-12-06] MEDS: Propranolol HCL 20 MG TABLET PO ×2 (14:13→20:17)
--- NOTE | 2024-12-06 15:21 | P.PNGI_ITS ---
Subjective Subjective Date of Service: 12/06/24 Interval History: Still having abdominal pain, hilda. left side and LLQ. Reports a couple of small BM's with BRB. Denies N/V. 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 with guarding and +/- rebound, no mass Objective Data Labs 12/06/24 04:49 12/06/24 04:49 Labs: Laboratory Results - last 24 hr 12/05/24 12/05/24 12/05/24 16:05 16:48 19:18 WBC 20.4 H RBC 4.64 Hgb 14.0 Hct 40.4 MCV 87.1 MCH 30.2 MCHC 34.7 RDW 12.7 Plt Count 171 MPV 10.4 Immature Gran % (Auto) Cancelled Neut % (Auto) Cancelled Lymph % (Auto) Cancelled [place] % (Auto) Cancelled Eos % (Auto) Cancelled Baso % (Auto) Cancelled Lymph # (Auto) Cancelled [place] # (Auto) Cancelled Eos # (Auto) Cancelled Baso # (Auto) Cancelled Abs Immat Gran (auto) Cancelled Absolute Neuts (auto) Cancelled Absolute Nucleated RBC 0.000 Nucleated RBC % (auto) 0.0 Neutrophils % (Manual) 64 Band Neutrophils % 18 H Lymphocytes % (Manual) 2 L Atypical Lymphs % (Man) 1 Monocytes % (Manual) 14 H Metamyelocytes % 1 Abs Neuts (Manual) 16.7 H Lymphocytes # (Manual) 0.4 L Atyp Lymphs # (Manual) 0.2 Monocytes # (Manual) 2.9 H Metamyelocytes # 0.2 Toxic Vacuolation PRESENT Platelet Estimate NORMAL Plt Morphology Comment NORMAL RBC Morphology NOTED PT INR Sodium Potassium Chloride Carbon Dioxide Anion Gap BUN Creatinine Estim Creat Clear Calc Estimated GFR Random Glucose Lactic Acid F/U @ 2Hr 2.2 H* Lactic Acid F/U @ 4Hr 2.5 H* Calcium Total Bilirubin AST ALT Alkaline Phosphatase Total Protein Albumin Stl C. cayetanensis PCR Stool Rotavirus A PCR Stl Adenov F 40/41 PCR Stool Astrovirus (PCR) Stool Campylobacter PCR Stool Cryptosporidium PCR Stl Sh Tox Pr E STEC PCR Stool E coli O157 PCR Stl Enterotoxigenic E PCR Stool EPEC (PCR) Stool EAEC (PCR) Stl E. histolytica PCR Stool Giardia Lamblia PCR Stl P. shigelloides PCR Stool Salmonella PCR Stool Sapovirus (PCR) Stl Shigella/EIEC PCR St Y.enterocolitica PCR Stool Vibrio (PCR) Stl Vibrio cholerae PCR Stl Norovirus GI/GII PCR C. difficile Tox B Gene 12/06/24 12/06/24 03:00 04:49 WBC 18.5 H RBC 4.38 Hgb 13.2 Hct 39.1 MCV 89.3 MCH 30.1 MCHC 33.8 RDW 12.7 Plt Count 155 L MPV 10.9 Immature Gran % (Auto) Cancelled Neut % (Auto) Cancelled Lymph % (Auto) Cancelled [place] % (Auto) Cancelled Eos % (Auto) Cancelled Baso % (Auto) Cancelled Lymph # (Auto) Cancelled [place] # (Auto) Cancelled Eos # (Auto) Cancelled Baso # (Auto) Cancelled Abs Immat Gran (auto) Cancelled Absolute Neuts (auto) Cancelled Absolute Nucleated RBC 0.000 Nucleated RBC % (auto) 0.0 Neutrophils % (Manual) 74 H Band Neutrophils % 12 H Lymphocytes % (Manual) 5 L Atypical Lymphs % (Man) Monocytes % (Manual) 9 Metamyelocytes % Abs Neuts (Manual) 15.9 H Lymphocytes # (Manual) 0.9 L Atyp Lymphs # (Manual) Monocytes # (Manual) 1.7 H Metamyelocytes # Toxic Vacuolation Platelet Estimate NORMAL Plt Morphology Comment NORMAL RBC Morphology NORMAL PT 16.2 H INR 1.4 H Sodium 140 Potassium 3.6 Chloride 108 Carbon Dioxide 23 Anion Gap 13 BUN 19 H Creatinine 0.70 Estim Creat Clear Calc 59.6 Estimated GFR > 60 Random Glucose 91 Lactic Acid F/U @ 2Hr Lactic Acid F/U @ 4Hr Calcium 8.4 D Total Bilirubin 0.6 AST 28 ALT 8 Alkaline Phosphatase 107 Total Protein 6.0 L Albumin 3.1 L Stl C. cayetanensis PCR Not Detected Stool Rotavirus A PCR Not Detected Stl Adenov F 40/41 PCR Not Detected Stool Astrovirus (PCR) Not Detected Stool Campylobacter PCR Not Detected Stool Cryptosporidium PCR Not Detected Stl Sh Tox Pr E STEC PCR Not Detected Stool E coli O157 PCR Not applicable Stl Enterotoxigenic E PCR Not Detected Stool EPEC (PCR) Not Detected Stool EAEC (PCR) Not Detected Stl E. histolytica PCR Not Detected Stool Giardia Lamblia PCR Not Detected Stl P. shigelloides PCR Not Detected Stool Salmonella PCR Not Detected Stool Sapovirus (PCR) Not Detected Stl Shigella/EIEC PCR Not Detected St Y.enterocolitica PCR Not Detected Stool Vibrio (PCR) Not Detected Stl Vibrio cholerae PCR Not Detected Stl Norovirus GI/GII PCR Not Detected C. difficile Tox B Gene NEGATIVE Microbiology Microbiology Results: Microbiology 12/05/24 Unknown Urine Other - Nephrostomy Urine Culture - Preliminary Culture too young to evaluate. Procedures Date of Service Date of Service: 12/06/24 Progress Note: A&P Assessment and plan (1) Acute colitis: Status: Acute Assessment and Plan: Imp: Acute colitis-still suspect an infectious colitis. Cdiff is negative but the GI panel is pending. Her exam seems somewhat more worrisome than yesterday and she still has a leukocytosis with a left shift. Other possibility is ischemia. Rec: Plain Abdominal xrays now to R/O development of megacolon, ileus, and/or free air. Continue supportive care, clear liqs, F/U labs. Surgery following. D/W patient. Thanks Time Spent With Patient Time: Total time managing care of this patient today ____ minutes. Quality Stroke Does the patient have a stroke diagnosis?: No VTE Prior VTE?: No VTE Risk Level:: Medical - moderate - high VTE Device Contraindication: N/A - Device Ordered VTE Drug Contraindication: Treatment Not Indicated
[2024-12-06] MEDS: hydrOXYzine HCL 25 MG TABLET PO ×2 (15:41→20:17)
--- NOTE | 2024-12-06 15:49 | PM.EVENT ---
Event Note Date of Service: 12/07/24 Event Note: seen on afternoon rounds admits to pain looks comfortablle stable VS not toxic looking abd soft tender on left side etiollogy of colitis uncertain will continue to follow dw her daughter Time Spent With Patient Time: Total time managing care of this patient today ____ minutes.
[2024-12-06] MEDS: ALPRAZolam 0.25 MG TABLET PO (16:39)
[2024-12-06] MEDS: busPIRone HCl 5 MG TABLET 15 MG PO (20:17)
[2024-12-07] VITALS (9 sets, daily range): BP systolic 114–127; BP diastolic 67–79; PULSE 57–68; RESP 16–20; TEMP 36.3–37.2; O2SAT 91–97
[2024-12-07] MEDS: Morphine Sulfate 4 MG/ML CARTRIDGE 2 MG IVPUSH ×6 (00:26→20:26)
[2024-12-07] MEDS: Piperacillin Sodium/Tazobactam 2.25 GM in 0.9 % Sodium Chloride 50 ML IV ×4 (04:43→20:26)
[2024-12-07 06:09] LABS: MANUAL DIFF FLAG NO
[2024-12-07 06:18] LABS: Basophils Percent Auto 0.2 % (0-2); Eosinophils Absolute Auto 0.1 X10*3/uL (0.0-0.4); Eosinophils Percent Auto 0.5 % (0-4); Hematocrit 35.5 % (37.0-47.0); Imm Gran Abs Auto 0.08 X10*3/uL (0.00-0.03); Imm Gran Pct Auto 0.6 % (0.0-0.4); Lymphocytes Absolute Auto 1.5 X10*3/uL (1.2-4.9); Lymphocytes Percent Auto 11.2 % (20-40); Mean Corpuscular HGB Conc 33.8 g/dl (31.0-35.0); Mean Corpuscular Hemoglobin 30.1 pg (27.0-33.0); Mean Platelet Volume 10.7 fL (9.4-12.3); Monocytes Absolute Auto 1.1 X10*3/uL (0.1-1.2); Monocytes Percent Auto 8.1 % (2-11); Neutrophils Absolute Auto 10.3 x10*3/uL (2.0-8.3); Neutrophils Percent Auto 79.4 % (45-73); Platelet Count 145 X10*3/uL (160-400); Red Blood Count 3.99 X10*6/uL (4.20-5.50); Red Cell Distribution Width 12.9 % (11.0-16.0)
[2024-12-07 06:30] LABS: Amylase 26 U/L (28-100); Anion Gap 10 (12-20); Blood Urea Nitrogen 10 mg/dL (9-16); Calcium 8.4 mg/dL (8.4-10.2); Carbon Dioxide 24 mmol/L (22-29); Chloride 108 mmol/L (96-108); Creatinine Clr Calc Pharmacy 62.6; Estimated Glomerular Filt Rate > 60; Glucose Random 80 mg/dL (60-115); Potassium 3.1 mmol/L (3.3-5.1); Sodium 139 mmol/L (135-145)
[2024-12-07] MEDS: Fluticasone/Vilanterol 100/25 BLST.W.DEV 1 PUFF INHALE (07:44)
--- NOTE | 2024-12-07 08:34 | P.PNGS_ITS ---
Subjective Subjective Date of Service: 12/10/24 Interval history: Admits to still having pain although this is better compared to on admission Denies nausea or vomiting Denies bowel movements Has a little bit of blood per rectum yesterday although she says this has tapered off significantly compared to the day before No fever Denies diarrhea Physical Exam 2 Vital Signs: Vital Signs: Last Vital Signs Temp 98.7 F 12/07/24 07:58 Pulse 61 12/07/24 07:58 Resp 20 12/07/24 07:58 BP 127/71 12/07/24 07:58 Pulse Ox 92 12/07/24 07:58 O2 Del Method Room Air 12/07/24 07:58 BMI result Body Mass Index 18.2 Const: Other: Anxious as baseline General: comfortable and no acute distress Resp: Effort & Inspection: normal respiratory effort Cardio: Rate: regular rate GI: Other: Some tenderness on the left side Palpation (GI): Soft to palpation, not firm and no guarding Objective Data Active Medications Acetaminophen (Acetaminophen 325 Mg Tablet) 650 mg PO Q6H PRN PRN Reason: Pain, Mild 1-3,fever,headache Alprazolam (Alprazolam 0.25 Mg Tablet) 0.25 mg PO TID PRN PRN Reason: anxiety/restlessness Last Admin: 12/06/24 16:39 Dose: 0.25 mg Documented By: ZULY Buspirone HCl (Buspirone Hcl 5 Mg Tablet) 15 mg PO BID [facility] Last Admin: 12/06/24 20:17 Dose: 15 mg Documented By: SADE Flecainide Acetate (Flecainide Acetate 50 Mg Tablet) 100 mg PO BID [facility] Last Admin: 12/06/24 20:17 Dose: 100 mg Documented By: SADE Fluticasone/Vilanterol (Fluticasone/Vilanterol 100/25 Blst.W.Dev) 1 puff INHALE RDAILY [facility] Last Admin: 12/07/24 07:44 Dose: 1 puff Documented By: SHAHID Hydroxyzine HCl (Hydroxyzine Hcl 25 Mg Tablet) 25 mg PO TID [facility] Last Admin: 12/06/24 20:17 Dose: 25 mg Documented By: SADE Lactated Ringer's (Lr) 1,000 mls @ 60 mls/hr IVCONT .[id number] [facility] Last Admin: 12/07/24 06:08 Dose: Not Given Documented By: SADE Non-Admin Reason: IV Running Piperacillin Sod/Tazobactam (Sod 2.25 gm/ Sodium Chloride) 50 mls @ 100 mls/hr IV Q6H [facility] Last Infusion: 12/07/24 05:13 Dose: Infused Documented By: SADE Lisinopril (Lisinopril 20 Mg Tablet) 20 mg PO DAILY [facility]; Protocol Morphine Sulfate (Morphine Sulfate 4 Mg/Ml Cartridge) 2 mg IVPUSH Q4H PRN; Protocol PRN Reason: Pain, Severe (Pain Scale 7-10) Last Admin: 12/07/24 04:42 Dose: 2 mg Documented By: SADE Ondansetron HCl (Ondansetron Hcl 4 Mg/2 Ml Vial) 4 mg IVPUSH Q8H PRN PRN Reason: Nausea and Vomiting Propranolol HCl (Propranolol Hcl 20 Mg Tablet) 20 mg PO BID [facility]; Protocol Last Admin: 12/06/24 20:17 Dose: 20 mg Documented By: SADE Propranolol HCl (Propranolol Hcl La 60 Mg Cap.Sa.24h) 60 mg PO DAILY [facility]; Protocol Tiotropium [place] (Tiotropium [place] 2.5 Mcg 1 Puff/2.5 Mcg Mist.Inhal) 2 puff INHALE RDAILY@2000 [facility] Labs 12/10/24 06:15 12/10/24 06:15 Labs: Laboratory Results - last 24 hr 12/06/24 12/07/24 03:00 06:03 MCV 89.0 MCH 30.1 MCHC 33.8 RDW 12.9 Plt Count 145 L MPV 10.7 Immature Gran % (Auto) 0.6 H Neut % (Auto) 79.4 H Lymph % (Auto) 11.2 L [place] % (Auto) 8.1 Eos % (Auto) 0.5 Baso % (Auto) 0.2 Lymph # (Auto) 1.5 [place] # (Auto) 1.1 Eos # (Auto) 0.1 Baso # (Auto) 0.0 Abs Immat Gran (auto) 0.08 H Absolute Neuts (auto) 10.3 H Absolute Nucleated RBC 0.000 Nucleated RBC % (auto) 0.0 Anion Gap 10 L Estim Creat Clear Calc 62.6 Estimated GFR > 60 Random Glucose 80 Lactic Acid 1.0 Calcium 8.4 Amylase 26 L Stl C. cayetanensis PCR Not Detected Stool Rotavirus A PCR Not Detected Stl Adenov F 40/41 PCR Not Detected Stool Astrovirus (PCR) Not Detected Stool Campylobacter PCR Not Detected Stool Cryptosporidium PCR Not Detected Stl Sh Tox Pr E STEC PCR Not Detected Stool E coli O157 PCR Not applicable Stl Enterotoxigenic E PCR Not Detected Stool EPEC (PCR) Not Detected Stool EAEC (PCR) Not Detected Stl E. histolytica PCR Not Detected Stool Giardia Lamblia PCR Not Detected Stl P. shigelloides PCR Not Detected Stool Salmonella PCR Not Detected Stool Sapovirus (PCR) Not Detected Stl Shigella/EIEC PCR Not Detected St Y.enterocolitica PCR Not Detected Stool Vibrio (PCR) Not Detected Stl Vibrio cholerae PCR Not Detected Stl Norovirus GI/GII PCR Not Detected Microbiology Microbiology Results: Microbiology 12/05/24 14:34 Blood Culture - Preliminary Blood - Venous No growth after 24 hours. 12/05/24 14:10 Blood Culture - Preliminary Blood - Venous No growth after 24 hours. 12/05/24 Unknown Urine Culture - Preliminary Urine Other - Nephrostomy Culture too young to evaluate. 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 Quality Stroke Does the patient have a stroke diagnosis?: No VTE Prior VTE?: No VTE Risk Level:: Medical - moderate - high VTE Device Contraindication: N/A - Device Ordered VTE Drug Contraindication: Treatment Not Indicated
[2024-12-07] MEDS: Propranolol HCL 20 MG TABLET PO ×2 (08:51→20:26)
[2024-12-07] MEDS: busPIRone HCl 5 MG TABLET 15 MG PO ×2 (08:51→20:25)
[2024-12-07] MEDS: hydrOXYzine HCL 25 MG TABLET PO ×3 (08:51→20:25)
[2024-12-07] MEDS: lisinopriL 20 MG TABLET PO (08:52)
[2024-12-07] MEDS: Flecainide Acetate 50 MG TABLET 100 MG PO ×2 (08:52→20:25)
[2024-12-07] MEDS: Lactated Ringers 1,000 ML 60 ML IVCONT (08:55)
--- NOTE | 2024-12-07 13:29 | P.PNIM_ITS ---
Subjective Subjective Date of Service: 12/07/24 Interval History: seen and evaluated this morning still reporting LLQ pain and passing bloody bowel motions Hb of 12 tolerating clears no other events Review of Systems Review of Systems: Yes all other systems are reviewed and are negative Physical Exam 2 Vital Signs: Vital Signs: Last Vital Signs Temp 98.1 F 12/07/24 11:27 Pulse 57 12/07/24 11:27 Resp 17 12/07/24 12:30 BP 120/70 12/07/24 11:27 Pulse Ox 95 12/07/24 11:27 O2 Del Method Room Air 12/07/24 11:27 BMI result Body Mass Index 20.0 Const: Other: Constitutional : Awake, interactive, not in distress Neck : Normal inspection, Supple Cardiovascular : RRR, no JVP, no lower extremity edema Respiratory : good bilateral air entry, no crackles, wheezes or rhonchi Gastrointestinal: soft, lax, Normal bowel sounds, LLQ pain with tenderness, no rebound Skin : Warm, Dry Neurological : Alert & oriented x3, No focal deficit Objective Data Active Medications Acetaminophen (Acetaminophen 325 Mg Tablet) 650 mg PO Q6H PRN PRN Reason: Pain, Mild 1-3,fever,headache Alprazolam (Alprazolam 0.25 Mg Tablet) 0.25 mg PO TID PRN PRN Reason: anxiety/restlessness Last Admin: 12/06/24 16:39 Dose: 0.25 mg Documented By: ZULY Buspirone HCl (Buspirone Hcl 5 Mg Tablet) 15 mg PO BID [facility] Last Admin: 12/07/24 08:51 Dose: 15 mg Documented By: MONIKA Flecainide Acetate (Flecainide Acetate 50 Mg Tablet) 100 mg PO BID [facility] Last Admin: 12/07/24 08:52 Dose: 100 mg Documented By: MONIKA Fluticasone/Vilanterol (Fluticasone/Vilanterol 100/25 Blst.W.Dev) 1 puff INHALE RDAILY [facility] Last Admin: 12/07/24 07:44 Dose: 1 puff Documented By: SHAHID Hydroxyzine HCl (Hydroxyzine Hcl 25 Mg Tablet) 25 mg PO TID [facility] Last Admin: 12/07/24 08:51 Dose: 25 mg Documented By: MONIKA Lactated Ringer's (Lr) 1,000 mls @ 60 mls/hr IVCONT .[id number] [facility] Last Admin: 12/07/24 08:55 Dose: 60 mls/hr Documented By: MONIKA Piperacillin Sod/Tazobactam (Sod 2.25 gm/ Sodium Chloride) 50 mls @ 100 mls/hr IV Q6H [facility] Last Infusion: 12/07/24 09:26 Dose: Infused Documented By: MONIKA Lisinopril (Lisinopril 20 Mg Tablet) 20 mg PO DAILY [facility]; Protocol Last Admin: 12/07/24 08:52 Dose: 20 mg Documented By: MONIKA Morphine Sulfate (Morphine Sulfate 4 Mg/Ml Cartridge) 2 mg IVPUSH Q4H PRN; Protocol PRN Reason: Pain, Severe (Pain Scale 7-10) Last Admin: 12/07/24 12:30 Dose: 2 mg Documented By: MONIKA Ondansetron HCl (Ondansetron Hcl 4 Mg/2 Ml Vial) 4 mg IVPUSH Q8H PRN PRN Reason: Nausea and Vomiting Propranolol HCl (Propranolol Hcl 20 Mg Tablet) 20 mg PO BID [facility]; Protocol Last Admin: 12/07/24 08:51 Dose: 20 mg Documented By: MONIKA Propranolol HCl (Propranolol Hcl La 60 Mg Cap.Sa.24h) 60 mg PO DAILY [facility]; Protocol Last Admin: 12/07/24 08:45 Dose: Not Given Documented By: MONKIA Non-Admin Reason: Physician Held Med Tiotropium [place] (Tiotropium [place] 2.5 Mcg 1 Puff/2.5 Mcg Mist.Inhal) 2 puff INHALE RDAILY@2000 [facility] Labs 12/07/24 06:03 12/07/24 06:03 Labs: Laboratory Results - last 24 hr 12/07/24 06:03 MCV 89.0 MCH 30.1 MCHC 33.8 RDW 12.9 Plt Count 145 L MPV 10.7 Immature Gran % (Auto) 0.6 H Neut % (Auto) 79.4 H Lymph % (Auto) 11.2 L [place] % (Auto) 8.1 Eos % (Auto) 0.5 Baso % (Auto) 0.2 Lymph # (Auto) 1.5 [place] # (Auto) 1.1 Eos # (Auto) 0.1 Baso # (Auto) 0.0 Abs Immat Gran (auto) 0.08 H Absolute Neuts (auto) 10.3 H Absolute Nucleated RBC 0.000 Nucleated RBC % (auto) 0.0 Anion Gap 10 L Estim Creat Clear Calc 62.6 Estimated GFR > 60 Random Glucose 80 Lactic Acid 1.0 Calcium 8.4 Amylase 26 L Microbiology Microbiology Results: Microbiology 12/05/24 Unknown Urine Culture - Final Urine Other - Nephrostomy 12/05/24 14:34 Blood Culture - Preliminary Blood - Venous No growth after 24 hours. 12/05/24 14:10 Blood Culture - Preliminary Blood - Venous No growth after 24 hours. 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 Sepsis secondary to acute colitis WBCs trending down CT scan as reported, concerning for infectious vs ischemic origin XR Abd showing mild ileus but no free air Negative stool panel: Negative C.Diff continue IVF continue IV Zosyn GI input appreciated, treated with Abx, hold on Colonoscopy Surgery following, supportive therapy continue clear liquids and advance as tolerated Follow H&H acute hypokalemia give replacement, follow BMP Anxiety Zanax prn HTN hold home meds. PAF Flecainide , Propranolol , Xarelto on hold COPD home inhalers PRN NEbs DVT PPx SCDs The patient will need overnight hospital stay for treatment of sepsis secondary to acute colitis pending tolerance to diet and specialists follow up Quality Stroke Does the patient have a stroke diagnosis?: No VTE Prior VTE?: No VTE Risk Level:: Medical - moderate - high VTE Device Contraindication: N/A - Device Ordered VTE Drug Contraindication: Treatment Not Indicated
[2024-12-07] MEDS: Potassium Chloride/H20 10 MEQ/100 ML PIGGYBACK 100 MEQ IV (14:04)
--- NOTE | 2024-12-07 15:21 | MHC.CM.PN ---
EMR reviewed and per MD rounds, pt is not medically cleared for discharge due to management of sepsis secondary to acute colitis, awaiting PO tolerance.
--- NOTE | 2024-12-07 16:33 | PM.GIPN ---
Subjective Subjective Date of Service: 12/07/24 Interval History: Patient still having some left-sided abdominal discomfort with a little BRBPR this morning, but overall describes that things do seem improved. Denies N/V. Afebrile Critical Care Time (minutes): 0 Physical Exam Vital Signs: Vital Signs: Last Vital Signs Temp 97.8 F 12/07/24 15:09 Pulse 60 12/07/24 15:09 Resp 18 12/07/24 15:09 BP 126/67 12/07/24 15:09 Pulse Ox 97 12/07/24 15:09 O2 Del Method Room Air 12/07/24 15:09 BMI result Body Mass Index 20.0 Const: General: cooperative, comfortable, no acute distress and alert GI: Other: Abd-Soft, +BS, mild tenderness along left abdomen. No mass or rebound Objective Data Labs 12/07/24 06:03 12/07/24 06:03 Labs: Laboratory Results - last 24 hr 12/07/24 06:03 WBC 13.0 H RBC 3.99 L Hgb 12.0 Hct 35.5 L MCV 89.0 MCH 30.1 MCHC 33.8 RDW 12.9 Plt Count 145 L MPV 10.7 Immature Gran % (Auto) 0.6 H Neut % (Auto) 79.4 H Lymph % (Auto) 11.2 L [place] % (Auto) 8.1 Eos % (Auto) 0.5 Baso % (Auto) 0.2 Lymph # (Auto) 1.5 [place] # (Auto) 1.1 Eos # (Auto) 0.1 Baso # (Auto) 0.0 Abs Immat Gran (auto) 0.08 H Absolute Neuts (auto) 10.3 H Absolute Nucleated RBC 0.000 Nucleated RBC % (auto) 0.0 Sodium 139 Potassium 3.1 L Chloride 108 Carbon Dioxide 24 Anion Gap 10 L BUN 10 Creatinine 0.58 Estim Creat Clear Calc 62.6 Estimated GFR > 60 Random Glucose 80 Lactic Acid 1.0 Calcium 8.4 Amylase 26 L Microbiology Microbiology Results: Microbiology 12/05/24 14:10 Blood - Venous Blood Culture - Preliminary No growth after 48 hours. 12/05/24 Unknown Urine Other - Nephrostomy Urine Culture - Final 12/05/24 14:34 Blood - Venous Blood Culture - Preliminary No growth after 24 hours. Procedures Date of Service Date of Service: 12/07/24 Progress Note: A&P Assessment and plan (1) Acute colitis: Status: Acute Assessment and Plan: Imp: Acute colitis, ? etiology. She does seem to be clinically improving in regard to her abdominal pain, diarrhea, and bleeding. Her abdominal xray from yesterday did not show any worrisome changes and her WBC has come down significantly today. Her stool specimens have been negative for any infectious etiology. Differential diagnosis remains the same with infectious, despite the negative stool specimens, or ischemic colitis. Rec: Continue current plan of the IV antibiotics, F/U labs, and observation. If things improve over the weekend I would recommend advancing her diet and discharging to home with outpatient follow up. If things do not improve sufficiently in regard to her pain, bleeding, etc, I will plan to do a limited colonoscopy on 12/10/24. I will put orders in over the weekend if need be. Continue to hold Xarelto. D/W patient in detail. D/W Dr. Wheeler. Thanks. Time Spent With Patient Time: Total time managing care of this patient today ____ minutes. Quality Stroke Does the patient have a stroke diagnosis?: No VTE Prior VTE?: No VTE Risk Level:: Medical - moderate - high VTE Device Contraindication: N/A - Device Ordered VTE Drug Contraindication: Treatment Not Indicated
[2024-12-07] MEDS: Potassium Chloride ER 20 MEQ TAB.ER.PRT PO (18:40)
[2024-12-07] MEDS: Throat Lozenge, Medicated LOZENGE 1 LOZENGE MUCOUS MEM (20:30)
[2024-12-07] MEDS: Tiotropium Bromide 2.5 mcg 1 PUFF/2.5 MCG MIST.INHAL 2 PUFF INHALE ×2 (20:47)
[2024-12-08] VITALS (9 sets, daily range): BP systolic 124–158; BP diastolic 65–94; PULSE 62–76; RESP 16–18; TEMP 36.4–37.3; O2SAT 90–98
[2024-12-08] MEDS: Piperacillin Sodium/Tazobactam 2.25 GM in 0.9 % Sodium Chloride 50 ML IV ×4 (04:26→20:15)
[2024-12-08] MEDS: Morphine Sulfate 4 MG/ML CARTRIDGE 2 MG IVPUSH ×4 (06:30→20:17)
[2024-12-08] MEDS: Fluticasone/Vilanterol 100/25 BLST.W.DEV 1 PUFF INHALE (07:42)
[2024-12-08 08:00] LABS: Anion Gap 13 (12-20); Blood Urea Nitrogen 7 mg/dL (9-16); Calcium 8.6 mg/dL (8.4-10.2); Carbon Dioxide 25 mmol/L (22-29); Chloride 106 mmol/L (96-108); Creatinine Clr Calc Pharmacy 60.4; Estimated Glomerular Filt Rate > 60; Glucose Fasting 78 mg/dL (60-99); Potassium 3.3 mmol/L (3.3-5.1); Sodium 141 mmol/L (135-145)
[2024-12-08] MEDS: Propranolol HCL 20 MG TABLET PO ×2 (08:16→20:14)
[2024-12-08] MEDS: hydrOXYzine HCL 25 MG TABLET PO ×3 (08:16→20:15)
[2024-12-08] MEDS: lisinopriL 20 MG TABLET PO (08:16)
[2024-12-08] MEDS: busPIRone HCl 5 MG TABLET 15 MG PO ×2 (08:16→20:14)
[2024-12-08] MEDS: Flecainide Acetate 50 MG TABLET 100 MG PO ×2 (08:16→20:14)
[2024-12-08] MEDS: Propranolol HCL LA 60 MG CAP.SA.24H PO (08:16)
[2024-12-08 08:28] LABS: Basophils Percent Auto 0.2 % (0-2); Eosinophils Absolute Auto 0.1 X10*3/uL (0.0-0.4); Eosinophils Percent Auto 0.7 % (0-4); Hematocrit 36.8 % (37.0-47.0); Hemoglobin 12.4 g/dl (12.0-16.0); Imm Gran Abs Auto 0.03 X10*3/uL (0.00-0.03); Imm Gran Pct Auto 0.4 % (0.0-0.4); Lymphocytes Absolute Auto 1.4 X10*3/uL (1.2-4.9); Lymphocytes Percent Auto 16.2 % (20-40); Mean Corpuscular HGB Conc 33.7 g/dl (31.0-35.0); Mean Corpuscular Hemoglobin 30.1 pg (27.0-33.0); Mean Corpuscular Volume 89.3 fL (80.0-98.0); Mean Platelet Volume 10.9 fL (9.4-12.3); Monocytes Absolute Auto 1.1 X10*3/uL (0.1-1.2); Monocytes Percent Auto 12.8 % (2-11); Neutrophils Absolute Auto 5.9 x10*3/uL (2.0-8.3); Neutrophils Percent Auto 69.7 % (45-73); Platelet Count 161 X10*3/uL (160-400); Red Blood Count 4.12 X10*6/uL (4.20-5.50); Red Cell Distribution Width 12.6 % (11.0-16.0); White Blood Count 8.4 X10*3/uL (4.8-10.8)
--- NOTE | 2024-12-08 13:47 | HO.PM.IMPN ---
Subjective Subjective Date of Service: 12/08/24 Interval History: seen and evaluated this morning still reporting LLQ pain but seems better passing less bloody bowel motions Hb of 12 , stable tolerating clears no other events Review of Systems Review of Systems: Yes all other systems are reviewed and are negative Physical Exam Vital Signs: Vital Signs: Last Vital Signs Temp 97.9 F 12/08/24 10:52 Pulse 63 12/08/24 10:52 Resp 18 12/08/24 10:52 BP 124/72 12/08/24 10:52 Pulse Ox 97 12/08/24 10:52 O2 Del Method Room Air 12/08/24 10:52 BMI result Body Mass Index 20.0 Const: Other: Constitutional : Awake, interactive, not in distress Neck : Normal inspection, Supple Cardiovascular : RRR, no JVP, no lower extremity edema Respiratory : good bilateral air entry, no crackles, wheezes or rhonchi Gastrointestinal: soft, lax, Normal bowel sounds, moderate LLQ pain with tenderness, no rebound Skin : Warm, Dry Neurological : Alert & oriented x3, No focal deficit Objective Data Active Medications Acetaminophen (Acetaminophen 325 Mg Tablet) 650 mg PO Q6H PRN PRN Reason: Pain, Mild 1-3,fever,headache Alprazolam (Alprazolam 0.25 Mg Tablet) 0.25 mg PO TID PRN PRN Reason: anxiety/restlessness Last Admin: 12/06/24 16:39 Dose: 0.25 mg Documented By: ZULY Benzocaine (Throat Lozenge, Medicated Lozenge) 1 lozenge MUCOUS MEM Q2H PRN PRN Reason: Sore Throat Last Admin: 12/07/24 20:30 Dose: 1 lozenge Documented By: DOROTHY Buspirone HCl (Buspirone Hcl 5 Mg Tablet) 15 mg PO BID COUNTS INCLUDE 234 BEDS AT THE [facility] Last Admin: 12/08/24 08:16 Dose: 15 mg Documented By: ULI Flecainide Acetate (Flecainide Acetate 50 Mg Tablet) 100 mg PO BID COUNTS INCLUDE 234 BEDS AT THE [facility] Last Admin: 12/08/24 08:16 Dose: 100 mg Documented By: ULI Fluticasone/Vilanterol (Fluticasone/Vilanterol 100/25 Blst.W.Dev) 1 puff INHALE RDAILY COUNTS INCLUDE 234 BEDS AT THE [facility] Last Admin: 12/08/24 07:42 Dose: 1 puff Documented By: ARCENIO Hydroxyzine HCl (Hydroxyzine Hcl 25 Mg Tablet) 25 mg PO TID COUNTS INCLUDE 234 BEDS AT THE [facility] Last Admin: 12/08/24 08:16 Dose: 25 mg Documented By: ULI Piperacillin Sod/Tazobactam (Sod 2.25 gm/ Sodium Chloride) 50 mls @ 100 mls/hr IV Q6H COUNTS INCLUDE 234 BEDS AT THE [facility] Last Infusion: 12/08/24 08:51 Dose: Infused Documented By: ULI Lisinopril (Lisinopril 20 Mg Tablet) 20 mg PO DAILY COUNTS INCLUDE 234 BEDS AT THE [facility]; Protocol Last Admin: 12/08/24 08:16 Dose: 20 mg Documented By: ULI Morphine Sulfate (Morphine Sulfate 4 Mg/Ml Cartridge) 2 mg IVPUSH Q4H PRN; Protocol PRN Reason: Pain, Severe (Pain Scale 7-10) Last Admin: 12/08/24 12:15 Dose: 2 mg Documented By: ULI Ondansetron HCl (Ondansetron Hcl 4 Mg/2 Ml Vial) 4 mg IVPUSH Q8H PRN PRN Reason: Nausea and Vomiting Propranolol HCl (Propranolol Hcl 20 Mg Tablet) 20 mg PO BID COUNTS INCLUDE 234 BEDS AT THE [facility]; Protocol Last Admin: 12/08/24 08:16 Dose: 20 mg Documented By: ULI Propranolol HCl (Propranolol Hcl La 60 Mg Cap.Sa.24h) 60 mg PO DAILY COUNTS INCLUDE 234 BEDS AT THE [facility]; Protocol Last Admin: 12/08/24 08:16 Dose: 60 mg Documented By: ULI Tiotropium [place] (Tiotropium [place] 2.5 Mcg 1 Puff/2.5 Mcg Mist.Inhal) 2 puff INHALE RDAILY@1999 COUNTS INCLUDE 234 BEDS AT THE [facility] Last Admin: 12/07/24 20:47 Dose: 2 puff Documented By: [facility] 12/08/24 08:12 12/08/24 07:14 Labs: Laboratory Results - last 24 hr 12/08/24 12/08/24 07:14 08:12 MCV 89.3 MCH 30.1 MCHC 33.7 RDW 12.6 Plt Count 161 MPV 10.9 Immature Gran % (Auto) 0.4 Neut % (Auto) 69.7 Lymph % (Auto) 16.[address] [place] % (Auto) 12.8 H Eos % (Auto) 0.7 Baso % (Auto) 0.2 Lymph # (Auto) 1.4 [place] # (Auto) 1.1 Eos # (Auto) 0.1 Baso # (Auto) 0.0 Abs Immat Gran (auto) 0.03 Absolute Neuts (auto) 5.9 Absolute Nucleated RBC 0.000 Nucleated RBC % (auto) 0.0 Anion Gap 13 Estim Creat Clear Calc 60.4 Estimated GFR > 60 Fasting Glucose 78 Calcium 8.6 Microbiology Microbiology Results: Microbiology 12/05/24 14:34 Blood Culture - Preliminary Blood - Venous No growth after 48 hours. 12/05/24 14:10 Blood Culture - Preliminary Blood - Venous No growth after 48 hours. 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 Sepsis secondary to acute colitis WBCs trending down CT scan as reported, concerning for infectious vs ischemic origin XR Abd showing mild ileus but no free air Negative stool panel: Negative C.Diff continue IVF continue IV Zosyn GI input appreciated, treated with Abx, hold on Colonoscopy unless she is worsening Surgery following, supportive therapy and advance diet as tolerated advance to regular diet Follow H&H acute hypokalemia give replacement, follow BMP Anxiety Zanax prn HTN hold home meds. PAF Flecainide , Propranolol , Xarelto on hold COPD home inhalers PRN NEbs DVT PPx SCDs The patient will need overnight hospital stay for treatment of sepsis secondary to acute colitis pending tolerance to diet and specialists follow up Quality Stroke Does the patient have a stroke diagnosis?: No VTE Prior VTE?: No VTE Risk Level:: Medical - moderate - high VTE Device Contraindication: N/A - Device Ordered VTE Drug Contraindication: Treatment Not Indicated
[2024-12-08] MEDS: Tiotropium Bromide 2.5 mcg 1 PUFF/2.5 MCG MIST.INHAL 2 PUFF INHALE (19:42)
[2024-12-09] VITALS (11 sets, daily range): BP systolic 136–170; BP diastolic 76–99; PULSE 53–68; RESP 16–18; TEMP 36.2–37.2; O2SAT 91–98
[2024-12-09] MEDS: Piperacillin Sodium/Tazobactam 2.25 GM in 0.9 % Sodium Chloride 50 ML IV ×2 (01:49→07:45)
[2024-12-09] MEDS: Morphine Sulfate 4 MG/ML CARTRIDGE 2 MG IVPUSH ×5 (01:49→21:51)
[2024-12-09] MEDS: Fluticasone/Vilanterol 100/25 BLST.W.DEV 1 PUFF INHALE (07:31)
[2024-12-09] MEDS: Propranolol HCL 20 MG TABLET PO ×2 (07:45→20:42)
[2024-12-09] MEDS: hydrOXYzine HCL 25 MG TABLET PO ×3 (07:45→20:40)
[2024-12-09] MEDS: Propranolol HCL LA 60 MG CAP.SA.24H PO (07:45)
[2024-12-09] MEDS: lisinopriL 20 MG TABLET PO (07:45)
[2024-12-09] MEDS: busPIRone HCl 5 MG TABLET 15 MG PO ×2 (07:45→20:39)
[2024-12-09] MEDS: Flecainide Acetate 50 MG TABLET 100 MG PO ×2 (07:45→20:40)
[2024-12-09 07:59] LABS: MANUAL DIFF FLAG NO
[2024-12-09 08:02] LABS: Basophils Percent Auto 0.2 % (0-2); Eosinophils Absolute Auto 0.1 X10*3/uL (0.0-0.4); Eosinophils Percent Auto 1.1 % (0-4); Hematocrit 34.6 % (37.0-47.0); Hemoglobin 11.6 g/dl (12.0-16.0); Imm Gran Abs Auto 0.06 X10*3/uL (0.00-0.03); Imm Gran Pct Auto 0.7 % (0.0-0.4); Lymphocytes Absolute Auto 1.3 X10*3/uL (1.2-4.9); Lymphocytes Percent Auto 15.1 % (20-40); Mean Corpuscular HGB Conc 33.5 g/dl (31.0-35.0); Mean Corpuscular Hemoglobin 29.4 pg (27.0-33.0); Mean Corpuscular Volume 87.6 fL (80.0-98.0); Mean Platelet Volume 11.5 fL (9.4-12.3); Monocytes Absolute Auto 1.2 X10*3/uL (0.1-1.2); Monocytes Percent Auto 13.8 % (2-11); Neutrophils Absolute Auto 5.8 x10*3/uL (2.0-8.3); Neutrophils Percent Auto 69.1 % (45-73); Platelet Count 168 X10*3/uL (160-400); Red Blood Count 3.95 X10*6/uL (4.20-5.50); Red Cell Distribution Width 12.4 % (11.0-16.0); White Blood Count 8.4 X10*3/uL (4.8-10.8)
[2024-12-09 08:18] LABS: Blood Urea Nitrogen 7 mg/dL (9-16); Calcium 8.2 mg/dL (8.4-10.2); Creatinine Clr Calc Pharmacy 63.7; Estimated Glomerular Filt Rate > 60; Glucose Random 81 mg/dL (60-115)
[2024-12-09 08:30] LABS: Anion Gap 13 (12-20); Carbon Dioxide 24 mmol/L (22-29); Chloride 110 mmol/L (96-108); Potassium 2.9 mmol/L (3.3-5.1); Sodium 144 mmol/L (135-145)
--- NOTE | 2024-12-09 10:15 | P.PNGS_ITS ---
Subjective Subjective Date of Service: 12/09/24 Interval history: Tolerating regular diet Says she still has abdominal pain although much improved No nausea or vomiting Has had BMs, small amounts of blood yesterday Physical Exam 2 Vital Signs: Vital Signs: Last Vital Signs Temp 99.0 F 12/09/24 08:00 Pulse 62 12/09/24 08:00 Resp 16 12/09/24 08:00 BP 136/76 12/09/24 08:00 Pulse Ox 96 12/09/24 08:00 O2 Del Method Room Air 12/09/24 08:00 BMI result Body Mass Index 20.0 Const: Other: Anxious as baseline General: comfortable and no acute distress Resp: Effort & Inspection: normal respiratory effort Cardio: Rate: regular rate GI: Other: Vague mild diffuse tenderness Palpation (GI): Soft to palpation, not firm and no guarding Objective Data Active Medications Acetaminophen (Acetaminophen 325 Mg Tablet) 650 mg PO Q6H PRN PRN Reason: Pain, Mild 1-3,fever,headache Alprazolam (Alprazolam 0.25 Mg Tablet) 0.25 mg PO TID PRN PRN Reason: anxiety/restlessness Last Admin: 12/06/24 16:39 Dose: 0.25 mg Documented By: ZULY Benzocaine (Throat Lozenge, Medicated Lozenge) 1 lozenge MUCOUS MEM Q2H PRN PRN Reason: Sore Throat Last Admin: 12/07/24 20:30 Dose: 1 lozenge Documented By: DOROTHY Buspirone HCl (Buspirone Hcl 5 Mg Tablet) 15 mg PO BID [facility] Last Admin: 12/09/24 07:45 Dose: 15 mg Documented By: ULI Flecainide Acetate (Flecainide Acetate 50 Mg Tablet) 100 mg PO BID [facility] Last Admin: 12/09/24 07:45 Dose: 100 mg Documented By: ULI Fluticasone/Vilanterol (Fluticasone/Vilanterol 100/25 Blst.W.Dev) 1 puff INHALE RDAILY [facility] Last Admin: 12/09/24 07:31 Dose: 1 puff Documented By: ARCENIO Hydroxyzine HCl (Hydroxyzine Hcl 25 Mg Tablet) 25 mg PO TID [facility] Last Admin: 12/09/24 07:45 Dose: 25 mg Documented By: ULI Piperacillin Sod/Tazobactam (Sod 2.25 gm/ Sodium Chloride) 50 mls @ 100 mls/hr IV Q6H [facility] Last Infusion: 12/09/24 08:21 Dose: Infused Documented By: ULI Lisinopril (Lisinopril 20 Mg Tablet) 20 mg PO DAILY [facility]; Protocol Last Admin: 12/09/24 07:45 Dose: 20 mg Documented By: ULI Morphine Sulfate (Morphine Sulfate 4 Mg/Ml Cartridge) 2 mg IVPUSH Q4H PRN; Protocol PRN Reason: Pain, Severe (Pain Scale 7-10) Last Admin: 12/09/24 07:44 Dose: 2 mg Documented By: ULI Ondansetron HCl (Ondansetron Hcl 4 Mg/2 Ml Vial) 4 mg IVPUSH Q8H PRN PRN Reason: Nausea and Vomiting Propranolol HCl (Propranolol Hcl 20 Mg Tablet) 20 mg PO BID [facility]; Protocol Last Admin: 12/09/24 07:45 Dose: 20 mg Documented By: ULI Propranolol HCl (Propranolol Hcl La 60 Mg Cap.Sa.24h) 60 mg PO DAILY [facility]; Protocol Last Admin: 12/09/24 07:45 Dose: 60 mg Documented By: ULI Tiotropium [place] (Tiotropium [place] 2.5 Mcg 1 Puff/2.5 Mcg Mist.Inhal) 2 puff INHALE RDAILY@2000 [facility] Last Admin: 12/08/24 19:42 Dose: 2 puff Documented By: ARCENIO Labs 12/09/24 06:55 12/09/24 06:55 Labs: Laboratory Results - last 24 hr 12/09/24 06:55 MCV 87.6 MCH 29.4 MCHC 33.5 RDW 12.4 Plt Count 168 MPV 11.5 Immature Gran % (Auto) 0.7 H Neut % (Auto) 69.1 Lymph % (Auto) 15.1 L [place] % (Auto) 13.8 H Eos % (Auto) 1.1 Baso % (Auto) 0.2 Lymph # (Auto) 1.3 [place] # (Auto) 1.2 Eos # (Auto) 0.1 Baso # (Auto) 0.0 Abs Immat Gran (auto) 0.06 H Absolute Neuts (auto) 5.8 Absolute Nucleated RBC 0.000 Nucleated RBC % (auto) 0.0 Anion Gap 13 Estim Creat Clear Calc 63.7 Estimated GFR > 60 Random Glucose 81 Calcium 8.2 L Procedures Date of Service Date of Service: 12/09/24 Progress Note: A&P Assessment and plan (1) Acute colitis: Status: Acute Assessment and Plan: Clinically much improved Tolerating regular diet Replace potassium Exam remains benign Possible flexible sigmoidoscopy or colonoscopy with GI Time Spent With Patient Time: Total time managing care of this patient today ____ minutes. Quality Stroke Does the patient have a stroke diagnosis?: No VTE Prior VTE?: No VTE Risk Level:: Medical - moderate - high VTE Device Contraindication: N/A - Device Ordered VTE Drug Contraindication: Treatment Not Indicated
[2024-12-09] MEDS: Potassium Chloride Packet 20 MEQ PACKET 40 MEQ PO ×2 (11:31→13:17)
[2024-12-09] MEDS: Piperacillin Sodium/Tazobactam 3.375 GM in 0.9 % Sodium Chloride 50 ML IV ×2 (13:17→20:56)
--- NOTE | 2024-12-09 13:22 | HO.PM.IMPN ---
Subjective Subjective Date of Service: 12/09/24 Interval History: seen and evaluated this morning still reporting LLQ pain but seems better passing bowel motions with no reported blood Hb of 11.6 , stable tolerating regular diet no other events Review of Systems Review of Systems: Yes all other systems are reviewed and are negative Physical Exam Vital Signs: Vital Signs: Last Vital Signs Temp 98.5 F 12/09/24 11:20 Pulse 68 12/09/24 11:20 Resp 18 12/09/24 11:20 BP 136/80 12/09/24 11:20 Pulse Ox 97 12/09/24 11:20 O2 Del Method Room Air 12/09/24 11:20 BMI result Body Mass Index 20.0 Const: Other: Constitutional : Awake, interactive, not in distress Neck : Normal inspection, Supple Cardiovascular : RRR, no JVP, no lower extremity edema Respiratory : good bilateral air entry, no crackles, wheezes or rhonchi Gastrointestinal: soft, lax, Normal bowel sounds, moderate LLQ pain with tenderness, no rebound Skin : Warm, Dry Neurological : Alert & oriented x3, No focal deficit Objective Data Active Medications Acetaminophen (Acetaminophen 325 Mg Tablet) 650 mg PO Q6H PRN PRN Reason: Pain, Mild 1-3,fever,headache Alprazolam (Alprazolam 0.25 Mg Tablet) 0.25 mg PO TID PRN PRN Reason: anxiety/restlessness Last Admin: 12/06/24 16:39 Dose: 0.25 mg Documented By: ZULY Benzocaine (Throat Lozenge, Medicated Lozenge) 1 lozenge MUCOUS MEM Q2H PRN PRN Reason: Sore Throat Last Admin: 12/07/24 20:30 Dose: 1 lozenge Documented By: DOROTHY Betamethasone Dipropion Augmented (Betamethasone Dip Aug 0.05% Cr 15 Gm Tube) 1 appl TOPICAL BID [facility] Buspirone HCl (Buspirone Hcl 5 Mg Tablet) 15 mg PO BID [facility] Last Admin: 12/09/24 07:45 Dose: 15 mg Documented By: ULI Flecainide Acetate (Flecainide Acetate 50 Mg Tablet) 100 mg PO BID [facility] Last Admin: 12/09/24 07:45 Dose: 100 mg Documented By: ULI Fluticasone/Vilanterol (Fluticasone/Vilanterol 100/25 Blst.W.Dev) 1 puff INHALE RDAILY [facility] Last Admin: 12/09/24 07:31 Dose: 1 puff Documented By: ARCENIO Hydroxyzine HCl (Hydroxyzine Hcl 25 Mg Tablet) 25 mg PO TID [facility] Last Admin: 12/09/24 07:45 Dose: 25 mg Documented By: ULI Piperacillin Sod/Tazobactam (Sod 3.375 gm/ Sodium Chloride) 50 mls @ 100 mls/hr IV Q6H [facility] Ketoconazole (Ketoconazole 2 % Shampoo 120 Ml Btl) 1 appl TOPICAL DAILY [facility]; Protocol Lisinopril (Lisinopril 20 Mg Tablet) 20 mg PO DAILY [facility]; Protocol Last Admin: 12/09/24 07:45 Dose: 20 mg Documented By: ULI Morphine Sulfate (Morphine Sulfate 4 Mg/Ml Cartridge) 2 mg IVPUSH Q4H PRN; Protocol PRN Reason: Pain, Severe (Pain Scale 7-10) Last Admin: 12/09/24 07:44 Dose: 2 mg Documented By: ULI Ondansetron HCl (Ondansetron Hcl 4 Mg/2 Ml Vial) 4 mg IVPUSH Q8H PRN PRN Reason: Nausea and Vomiting Propranolol HCl (Propranolol Hcl 20 Mg Tablet) 20 mg PO BID [facility]; Protocol Last Admin: 12/09/24 07:45 Dose: 20 mg Documented By: ULI Propranolol HCl (Propranolol Hcl La 60 Mg Cap.Sa.24h) 60 mg PO DAILY [facility]; Protocol Last Admin: 12/09/24 07:45 Dose: 60 mg Documented By: ULI Tiotropium [place] (Tiotropium [place] 2.5 Mcg 1 Puff/2.5 Mcg Mist.Inhal) 2 puff INHALE RDAILY@1999 [facility] Last Admin: 12/08/24 19:42 Dose: 2 puff Documented By: ARCENIO Labs 12/09/24 06:55 12/09/24 06:55 Labs: Laboratory Results - last 24 hr 12/09/24 06:55 MCV 87.6 MCH 29.4 MCHC 33.5 RDW 12.4 Plt Count 168 MPV 11.5 Immature Gran % (Auto) 0.7 H Neut % (Auto) 69.1 Lymph % (Auto) 15.1 L [place] % (Auto) 13.8 H Eos % (Auto) 1.1 Baso % (Auto) 0.2 Lymph # (Auto) 1.3 [place] # (Auto) 1.2 Eos # (Auto) 0.1 Baso # (Auto) 0.0 Abs Immat Gran (auto) 0.06 H Absolute Neuts (auto) 5.8 Absolute Nucleated RBC 0.000 Nucleated RBC % (auto) 0.0 Anion Gap 13 Estim Creat Clear Calc 63.7 Estimated GFR > 60 Random Glucose 81 Calcium 8.2 L Assessment and Plan (1) Infectious colitis: Status: Acute (2) Occult blood positive stool: Status: Acute (3) Abdominal pain: Status: Acute Plan A 79 years old lady with PMH of RA, 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 Sepsis secondary to acute colitis WBCs trending down CT scan as reported, concerning for infectious vs ischemic origin XR Abd showing mild ileus but no free air Negative stool panel: Negative C.Diff dc IVF continue IV Zosyn GI input appreciated, treated with Abx, hold on Colonoscopy unless she is worsening Surgery following, supportive therapy and advance diet as tolerated advance to regular diet Follow H&H acute hypokalemia K 2.9 give replacement, follow BMP Actinic keratoses Start home cream Anxiety Zanax prn HTN hold home meds. PAF Flecainide , Propranolol , Xarelto on hold COPD home inhalers PRN NEbs DVT PPx SCDs The patient will need overnight hospital stay for treatment of sepsis secondary to acute colitis pending tolerance to diet and specialists follow up Quality Stroke Does the patient have a stroke diagnosis?: No VTE Prior VTE?: No VTE Risk Level:: Medical - moderate - high VTE Device Contraindication: N/A - Device Ordered VTE Drug Contraindication: Treatment Not Indicated
--- NOTE | 2024-12-09 15:32 | PM.EVENT ---
Event Note Date of Service: 12/09/24 Event Note: GI--Chart reviewed. Based on her reported clinical improvement re: the tolerating of her diet, no further bleeding, and less discomfort, as well as her original presentation c/w an acute colitis, I don't think she will need a flex sig/colonoscopy tomorrow, 12/10. If things remain stable she could probably be discharged tomorrow, 12/10, and she can be followed up as an outpatient as needed. I don't think she will need to go home on po antibiotics at this point as she has had the IV antibiotics for 4-5 days already. Please text me if anything changes. Thanks Time Spent With Patient Time: Total time managing care of this patient today ____ minutes.
[2024-12-09] MEDS: Tiotropium Bromide 2.5 mcg 1 PUFF/2.5 MCG MIST.INHAL 2 PUFF INHALE (19:39)
[2024-12-09] MEDS: ALPRAZolam 0.25 MG TABLET PO (21:53)
[2024-12-10] MEDS: Piperacillin Sodium/Tazobactam 3.375 GM in 0.9 % Sodium Chloride 50 ML IV ×2 (02:15→08:01)
[2024-12-10 02:34] VITALS: RESP 17
[2024-12-10] MEDS: Morphine Sulfate 4 MG/ML CARTRIDGE 2 MG IVPUSH ×3 (02:34→12:34)
[2024-12-10 03:48] VITALS: BP 138/93; PULSE 74; RESP 16; TEMP 36.9; O2SAT 92
[2024-12-10 06:36] VITALS: RESP 16
[2024-12-10 06:52] LABS: MANUAL DIFF FLAG NO
[2024-12-10 07:08] LABS: Basophils Percent Auto 0.5 % (0-2); Eosinophils Absolute Auto 0.1 X10*3/uL (0.0-0.4); Eosinophils Percent Auto 1.5 % (0-4); Hematocrit 37.8 % (37.0-47.0); Hemoglobin 12.8 g/dl (12.0-16.0); Imm Gran Abs Auto 0.14 X10*3/uL (0.00-0.03); Imm Gran Pct Auto 1.7 % (0.0-0.4); Lymphocytes Absolute Auto 1.5 X10*3/uL (1.2-4.9); Lymphocytes Percent Auto 17.8 % (20-40); Mean Corpuscular HGB Conc 33.9 g/dl (31.0-35.0); Mean Corpuscular Hemoglobin 29.7 pg (27.0-33.0); Mean Corpuscular Volume 87.7 fL (80.0-98.0); Mean Platelet Volume 11.3 fL (9.4-12.3); Monocytes Absolute Auto 1.3 X10*3/uL (0.1-1.2); Monocytes Percent Auto 14.9 % (2-11); Neutrophils Absolute Auto 5.4 x10*3/uL (2.0-8.3); Neutrophils Percent Auto 63.6 % (45-73); Platelet Count 192 X10*3/uL (160-400); Red Blood Count 4.31 X10*6/uL (4.20-5.50); Red Cell Distribution Width 12.3 % (11.0-16.0); White Blood Count 8.5 X10*3/uL (4.8-10.8)
[2024-12-10 07:23] VITALS: BP 148/94; PULSE 62; RESP 16; TEMP 36.6; O2SAT 92
[2024-12-10 07:31] LABS: Anion Gap 10 (12-20); Blood Urea Nitrogen 7 mg/dL (9-16); Calcium 8.9 mg/dL (8.4-10.2); Carbon Dioxide 27 mmol/L (22-29); Chloride 109 mmol/L (96-108); Creatinine Clr Calc Pharmacy 56.7; Estimated Glomerular Filt Rate > 60; Glucose Random 86 mg/dL (60-115); Potassium 3.6 mmol/L (3.3-5.1); Sodium 142 mmol/L (135-145)
[2024-12-10] MEDS: Fluticasone/Vilanterol 100/25 BLST.W.DEV 1 PUFF INHALE (07:55)
[2024-12-10] MEDS: Tiotropium Bromide 2.5 mcg 1 PUFF/2.5 MCG MIST.INHAL 2 PUFF INHALE (07:55)
[2024-12-10 07:56] VITALS: PULSE 64; RESP 16; O2SAT 94
[2024-12-10] MEDS: Propranolol HCL 20 MG TABLET PO (08:02)
[2024-12-10] MEDS: hydrOXYzine HCL 25 MG TABLET PO (08:02)
[2024-12-10] MEDS: busPIRone HCl 5 MG TABLET 15 MG PO (08:02)
[2024-12-10] MEDS: lisinopriL 20 MG TABLET PO (08:03)
[2024-12-10] MEDS: Propranolol HCL LA 60 MG CAP.SA.24H PO (08:03)
[2024-12-10] MEDS: Flecainide Acetate 50 MG TABLET 100 MG PO (08:03)
[2024-12-10 10:49] VITALS: BP 124/84; PULSE 60; RESP 16; TEMP 36.9; O2SAT 94
--- NOTE | 2024-12-10 13:18 | P.DS_ITS ---
DS: Providers Provider Date of Service: 12/10/24 Date of admission: 12/05/24 18:17 Date of discharge: 12/10/24 Primary care physician: Fany Meza MD Consults: 12/05/24 18:17 Consult to Gastroenterology Routine Consulting Provider: Dane Rosado Reason for consultation: LLQ pain, GI bleed Consult to General Surgery Routine Consulting Provider: [facility] General Surgeons Reason for consultation: LLQ pain, GI bleed DS: Diagnosis Discharge Diagnosis (1) Infectious colitis: Status: Acute (2) Occult blood positive stool: Status: Acute (3) Abdominal pain: Status: Acute (4) Acute colitis: Status: Acute DS: Summary Hospital Course Hospital Course: Admission note HPI A 79 years old lady with PMH of RA, 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 The patient denies any fever but reports chills. No chest pain, palpitations, SOB, nausea, vomiting, diarrhea or urinary symptoms. The patient started gradually and got worse. no radiation, no relieving factors. In ED CT Scan read Diffuse acute colitis with questionable active bleed in the splenic colonic flexure. Blood work showed leukocytosis with left shift. lactic acidosis and bandemia. Discussed with surgery and GI as the patient not interested in surgery at this point. Admitted for further evaluation and treatment. Hospital course The patient was admitted for treatment of Sepsis secondary to acute colitis as CT scan as reported, concerning for infectious vs ischemic origin for colitis. XR Abd showing mild ileus but no free air. Negative stool panel: Negative C.Diff. She was treated with IV Fluids and IV Zosyn with good response over the course of hospital stay as the pain improved and her diet was advance gradually from clear to regular with good tolerance and no reported pain or nausea. She was seen by Surgery team who recommended supportive therapy and advance diet as tolerated with possible GI intervention of colonoscopy\sigmoidiscopy. Seen by GI dr Rosado who recommended treating with antibiotics and holding Xarelto until Tuesday. He recommended to hold on Colonoscopy for the timebeing and to follow up as outpatient in office for planning next step (colonoscopy\EGD). No drop in her H&H levels. Noticed to have acute hypokalemia with K 2.9. given replacement with good response. To be discharged on 5 more days of Augmentin. To hold Xarelto until Tuesday and to follow with dr Rosado as outpatient in 1-2 weeks. Discharge plan Hold Xarelto until Tuesday Continue Augmentin for 5 more days Oxycodone as needed for pain To follow with dr Rosado in 1-2 weeks for arrangements for Colonoscopy and EGD Come back to ER for any worsening pain, bloody stool or fever Time Attestation Discharge Coordination Time (in mins): 47 Quality: Safe Use of Opioids Does Pt have an Active Cancer Diagnosis on the Problem List?: No Quality: Stroke Does the patient have a stroke diagnosis?: No Physical Exam Vital Signs: Vital Signs: Last Vital Signs Temp 98.5 F 12/10/24 10:49 Pulse 60 12/10/24 10:49 Resp 16 12/10/24 10:49 BP 124/84 12/10/24 10:49 Pulse Ox 94 12/10/24 10:49 O2 Del Method Room Air 12/10/24 10:49 BMI result Body Mass Index 20.0 Const: Other: Constitutional : Awake, interactive, not in distress Neck : Normal inspection, Supple Cardiovascular : RRR, no JVP, no lower extremity edema Respiratory : good bilateral air entry, no crackles, wheezes or rhonchi Gastrointestinal: soft, lax, Normal bowel sounds, benigng abdomen with mild LLQ pain with tenderness, no rebound Skin : Warm, Dry Neurological : Alert & oriented x3, No focal deficit DS: Data Data Completed and Pending Completed studies during hospitalization [Text1]: Procedures Detoxification Services for Substance Abuse Treatment (06/12/24) Labs on day of discharge: Laboratory Results - last 24 hr 12/10/24 06:15 WBC 8.5 RBC 4.31 Hgb 12.8 Hct 37.8 MCV 87.7 MCH 29.7 MCHC 33.9 RDW 12.3 Plt Count 192 MPV 11.3 Immature Gran % (Auto) 1.7 H Neut % (Auto) 63.6 Lymph % (Auto) 17.8 L [place] % (Auto) 14.9 H Eos % (Auto) 1.5 Baso % (Auto) 0.5 Lymph # (Auto) 1.5 [place] # (Auto) 1.3 H Eos # (Auto) 0.1 Baso # (Auto) 0.0 Abs Immat Gran (auto) 0.14 H Absolute Neuts (auto) 5.4 Absolute Nucleated RBC 0.000 Nucleated RBC % (auto) 0.0 Sodium 142 Potassium 3.6 D Chloride 109 H Carbon Dioxide 27 Anion Gap 10 L BUN 7 L Creatinine 0.64 Estim Creat Clear Calc 56.7 Estimated GFR > 60 Random Glucose 86 Calcium 8.9 D Preliminary micro results at discharge 12/05/24 14:34 Blood Culture - Preliminary Blood - Venous No growth after 48 hours. 12/05/24 14:10 Blood Culture - Preliminary Blood - Venous No growth after [address] scan - abdomen: Radiologist's impression: ITS Impressions Abdomen/Pelvis CT 12/05/24 13:34 IMPRESSION: Diffuse acute colitis with questionable active bleed in the splenic colonic flexure. Discussed with the requesting physician unit assistant, Sandra Neff in the emergency department at 2:38 PM Fleischner guidelines were followed. Electronically signed by: Mathew Rawls MD 12/05/2024 02:53 PM EST RP Abdomen X-Ray 12/06/24 15:55 IMPRESSION: 1. Mild gaseous distention of the right and transverse colon, with mild haustral thickening consistent with the known colitis. 2. A few prominent small bowel loops suggest mild ileus. No obstruction grossly. 3. No evidence of free intraperitoneal air. Electronically signed by: Jorge Luis Terrell MD 12/06/2024 04:08 PM EST RP Discharge Plan Discharge Anticipated Discharge Date/Time: 12/10/24 13:13 Patient Disposition: Home, Self-Care Discharge Diagnosis: Acute colitis Referrals: Fany Bobby MD [Primary Care Provider] - 1 Week Discharge Medications: New amoxicillin-pot clavulanate 400-57 mg/5 mL suspension for reconstitution 10 ml PO BID Qty: 100 0RF oxycodone 5 mg tablet 5 mg PO Q8H PRN (Reason: pain (scale score 7-10)) Qty: 14 0RF Rx Instructions: Partial Fill upon patient request. Continued flecainide 100 mg tablet 100 mg PO Q12H Qty: 180 1RF (DME) cane Device See Rx Instructions .Route Qty: 1 0RF Rx Instructions: As directed clobetasol 0.05 % cream 1 appl topical BID hydroxyzine HCl 25 mg tablet 25 mg PO TID buspirone 15 mg tablet 15 mg PO BID tiotropium bromide [Spiriva with HandiHaler] 18 mcg capsule, w/inhalation device 1 cap INHALATION DAILY ketoconazole 2 % shampoo 1 appl topical DAILY propranolol 60 mg capsule,extended release 24 hr 60 mg PO DAILY alprazolam 0.25 mg tablet 0.25 mg PO BID fluticasone furoate-vilanterol [Breo Ellipta] 100-25 mcg/dose blister with device 1 inh inhalation DAILY lisinopril 20 mg tablet 20 mg PO DAILY 90 Days Qty: 90 1RF Held Xarelto 20 mg tablet 20 mg PO DAILY Hold Instructions: Resume on 12/12/24. Discharge Orders: Discharge Order (Routine); Ordered 12/10/24 Ordered By: Esteban Miguel Diet: Advance to usual diet Activity on Discharge: As tolerated Stand Alone Forms: Patient Portal Discharge page Print Language: Slovenian Care Plan Goals: Hold Xarelto until Tuesday Continue Augmentin for 5 more days Oxycodone as needed for pain To follow with dr Rosado in 1-2 weeks for arrangements for Colonoscopy and EGD Come back to ER for any worsening pain, bloody stool or fever Health Concerns: Colitis Plan of Treatment: Antibiotics GI follow up Assessment: as above
--- NOTE | 2024-12-10 13:30 | PM.PNGS ---
Subjective Subjective Date of Service: 12/10/24 Interval history: She continues to feel better Tolerating regular diet Remains anxious No diarrhea Physical Exam Vital Signs: Vital Signs: Last Vital Signs Temp 98.5 F 12/10/24 10:49 Pulse 60 12/10/24 10:49 Resp 16 12/10/24 10:49 BP 124/84 12/10/24 10:49 Pulse Ox 94 12/10/24 10:49 O2 Del Method Room Air 12/10/24 10:49 BMI result Body Mass Index 20.0 Const: General: comfortable and no acute distress Resp: Effort & Inspection: normal respiratory effort GI: Palpation (GI): Soft to palpation, not firm, nontender and no guarding Objective Data Active Medications Acetaminophen (Acetaminophen 325 Mg Tablet) 650 mg PO Q6H PRN PRN Reason: Pain, Mild 1-3,fever,headache Alprazolam (Alprazolam 0.25 Mg Tablet) 0.25 mg PO TID PRN PRN Reason: anxiety/restlessness Last Admin: 12/09/24 21:53 Dose: 0.25 mg Documented By: JESSICA Benzocaine (Throat Lozenge, Medicated Lozenge) 1 lozenge MUCOUS MEM Q2H PRN PRN Reason: Sore Throat Last Admin: 12/07/24 20:30 Dose: 1 lozenge Documented By: DOROTHY Betamethasone Dipropion Augmented (Betamethasone Dip Aug 0.05% Cr 15 Gm Tube) 1 appl TOPICAL BID [facility] Last Admin: 12/10/24 08:11 Dose: Not Given Documented By: ATA Non-Admin Reason: Med Not Available Buspirone HCl (Buspirone Hcl 5 Mg Tablet) 15 mg PO BID [facility] Last Admin: 12/10/24 08:02 Dose: 15 mg Documented By: ATA Flecainide Acetate (Flecainide Acetate 50 Mg Tablet) 100 mg PO BID [facility] Last Admin: 12/10/24 08:03 Dose: 100 mg Documented By: ATA Fluticasone/Vilanterol (Fluticasone/Vilanterol 100/25 Blst.W.Dev) 1 puff INHALE RDAILY [facility] Last Admin: 12/10/24 07:55 Dose: 1 puff Documented By: MARIEL Hydroxyzine HCl (Hydroxyzine Hcl 25 Mg Tablet) 25 mg PO TID [facility] Last Admin: 12/10/24 08:02 Dose: 25 mg Documented By: ATA Piperacillin Sod/Tazobactam (Sod 3.375 gm/ Sodium Chloride) 50 mls @ 100 mls/hr IV Q6H [facility] Last Infusion: 12/10/24 09:21 Dose: Infused Documented By: ATA Ketoconazole (Ketoconazole 2 % Shampoo 120 Ml Btl) 1 appl TOPICAL DAILY [facility]; Protocol Last Admin: 12/10/24 08:11 Dose: Not Given Documented By: ATA Non-Admin Reason: Med Not Available Lisinopril (Lisinopril 20 Mg Tablet) 20 mg PO DAILY [facility]; Protocol Last Admin: 12/10/24 08:03 Dose: 20 mg Documented By: ATA Morphine Sulfate (Morphine Sulfate 4 Mg/Ml Cartridge) 2 mg IVPUSH Q4H PRN; Protocol PRN Reason: Pain, Severe (Pain Scale 7-10) Last Admin: 12/10/24 12:34 Dose: 2 mg Documented By: ATA Ondansetron HCl (Ondansetron Hcl 4 Mg/2 Ml Vial) 4 mg IVPUSH Q8H PRN PRN Reason: Nausea and Vomiting Propranolol HCl (Propranolol Hcl 20 Mg Tablet) 20 mg PO BID [facility]; Protocol Last Admin: 12/10/24 08:02 Dose: 20 mg Documented By: ATA Propranolol HCl (Propranolol Hcl La 60 Mg Cap.Sa.24h) 60 mg PO DAILY [facility]; Protocol Last Admin: 12/10/24 08:03 Dose: 60 mg Documented By: ATA Tiotropium [place] (Tiotropium [place] 2.5 Mcg 1 Puff/2.5 Mcg Mist.Inhal) 2 puff INHALE RDAILY@1999 [facility] Last Admin: 12/09/24 19:39 Dose: 2 puff Documented By: ARCENIO Labs 12/10/24 06:15 12/10/24 06:15 Labs: Laboratory Results - last 24 hr 12/10/24 06:15 MCV 87.7 MCH 29.7 MCHC 33.9 RDW 12.3 Plt Count 192 MPV 11.3 Immature Gran % (Auto) 1.7 H Neut % (Auto) 63.6 Lymph % (Auto) 17.8 L King % (Auto) 14.9 H Eos % (Auto) 1.5 Baso % (Auto) 0.5 Lymph # (Auto) 1.5 King # (Auto) 1.3 H Eos # (Auto) 0.1 Baso # (Auto) 0.0 Abs Immat Gran (auto) 0.14 H Absolute Neuts (auto) 5.4 Absolute Nucleated RBC 0.000 Nucleated RBC % (auto) 0.0 Anion Gap 10 L Estim Creat Clear Calc 56.7 Estimated GFR > 60 Random Glucose 86 Calcium 8.9 D Procedures Date of Service Date of Service: 12/10/24 Progress Note: A&P Assessment and plan (1) Abdominal pain: Status: Acute Assessment and Plan: Her CT scan suggested colitis Continues to improve Tolerating regular diet Feels better overall She is being discharged today I can see her in the office for a follow-up She is comfortable with the plan Time Spent With Patient Time: Total time managing care of this patient today ____ minutes. Quality Stroke Does the patient have a stroke diagnosis?: No VTE Prior VTE?: No VTE Risk Level:: Medical - moderate - high VTE Device Contraindication: N/A - Device Ordered VTE Drug Contraindication: Treatment Not Indicated
--- NOTE | 2024-12-10 13:48 | MHC.CM.PN ---
Second IMM given 12/10. Pt is medically cleared for discharge home self-care, pts daughter will transport her home today.
== END 2024-12-10 14:56 | disposition home or self-care (01) | DRG 392 ==
LOC: HO.ED 18:16 → HO.EDOVER 18:26 → HO.IMC 12-06 14:32
PROVIDERS: Internal Medicine; Physician Assistant; Admitting Provider Student in an Organized Health Care Education/Training Program; Emergency Provider Emergency Medicine; PCP Internal Medicine; Visit Provider Student in an Organized Health Care Education/Training Program
DX: A09 Infectious gastroenteritis and colitis, unspecified (principal); K56.7 Ileus, unspecified; E87.21 Acute metabolic acidosis; K62.5 Hemorrhage of anus and rectum; L57.0 Actinic keratosis; E87.6 Hypokalemia; Z95.0 Presence of cardiac pacemaker; F41.9 Anxiety disorder, unspecified; I10 Essential (primary) hypertension; I48.0 Paroxysmal atrial fibrillation; J44.9 Chronic obstructive pulmonary disease, unspecified; F17.210 Nicotine dependence, cigarettes, uncomplicated; Z71.6 Tobacco abuse counseling; Z79.01 Long term (current) use of anticoagulants; Z79.51 Long term (current) use of inhaled steroids; Z79.899 Other long term (current) drug therapy
CPT/HCPCS: 36415; 74019; 74178; 80048; 80053; 80076; 81001; 82150; 82272; 83605; 83690; 83735; 85007; 85025; 85027; 85610; 87040; 87086; 87493; 87507; 94640; 99285; J0131; J2270; J2543; J3430; J3480; J7120; Q9967

== ENCOUNTER → 2024-12-05 10:55 | Outpatient (BNV) | payer MEDICARE, SELFPAY | PROVIDERS: Emergency Provider Emergency Medicine; PCP Internal Medicine; Visit Provider Radiology Diagnostic Radiology | DX: R10.32 Left lower quadrant pain (principal); K92.1 Melena | CPT/HCPCS: 74178 ==

== ENCOUNTER 2024-12-05 18:17 | Outpatient (BNV) | payer OTHER, SELFPAY | END 2024-12-06 15:55 | PROVIDERS: Admitting Provider Student in an Organized Health Care Education/Training Program; Emergency Provider Emergency Medicine; PCP Internal Medicine; Visit Provider Radiology Diagnostic Radiology | DX: K52.9 Noninfective gastroenteritis and colitis, unspecified (principal) | CPT/HCPCS: 74019 ==

== ENCOUNTER → 2024-12-05 18:17 | Outpatient (BNV) | payer OTHER, SELFPAY | PROVIDERS: Admitting Provider Student in an Organized Health Care Education/Training Program; Emergency Provider Emergency Medicine; PCP Internal Medicine; Visit Provider Student in an Organized Health Care Education/Training Program | DX: A09 Infectious gastroenteritis and colitis, unspecified (principal); R19.5 Other fecal abnormalities | CPT/HCPCS: 99232; 99233; 99239 ==

== ENCOUNTER → 2024-12-05 18:17 | Outpatient (BNV) | payer MEDICARE, SELFPAY | PROVIDERS: Admitting Provider Student in an Organized Health Care Education/Training Program; Emergency Provider Emergency Medicine; PCP Internal Medicine; Visit Provider Surgery | DX: K52.9 Noninfective gastroenteritis and colitis, unspecified (principal) | CPT/HCPCS: 99222; 99232; 99499 ==

== ENCOUNTER 2024-12-24 12:59 | Outpatient (AMB) | payer OTHER, SELFPAY ==
[2024-12-24 13:13] VITALS: BP 126/84; PULSE 74; O2SAT 98; BMI 19.2
--- NOTE | 2024-12-24 13:13 | MHC.PC.OV ---
Vital Signs 12/24/24 13:13 Height 5 ft 2 in Weight 105 lb 2 oz BMI 19.2 BP 126/84 Blood Pressure Location Lt brachial Position Sitting Pulse 74 Pulse Source Pulse Oximeter Pulse Oximetry (%) 98 Oxygen Delivery Method Room Air Intake Visit Reasons: [facility]10 [facility] Clinical Safety Manager Required: No Accompanied by: Self / Same As Patient Allergies succinylcholine [SUCCINYLCHOLINE] Allergy (Severe, Verified 12/24/24 13:15) EXCESSIVE PARALYSIS tramadol Allergy (Intermediate, Verified 12/24/24 13:15) diarrhea, upset stomach cat dander [CATS] Allergy (Mild, Verified 12/24/24 13:15) UNKNOWN dog dander [DOGS] Allergy (Mild, Verified 12/24/24 13:15) UNKNOWN pollen extracts [POLLEN] Allergy (Mild, Verified 12/24/24 13:15) UNKNOWN gabapentin Adverse Reaction (Mild, Verified 12/24/24 13:15) Nausea and Vomiting DUST Allergy (Mild, Uncoded 12/24/24 13:15) UNKNOWN Medication List - Last Reconciled 12/24/24 by Myesha Dailey PA-C alprazolam 0.25 mg PO BID buspirone 15 mg PO BID cane As directed clobetasol 0.05% 1 appl topical BID flecainide 100 mg PO Q12H fluticasone furoate-vilanterol 100-25 mcg/dose (Breo Ellipta) 1 inh inhalation DAILY hydroxyzine HCl 25 mg PO TID ketoconazole 2% 1 appl topical DAILY lisinopril 20 mg PO DAILY 90 days oxycodone 5 mg PO Q8H PRN propranolol ER 60 mg PO DAILY rivaroxaban (Xarelto) 20 mg PO DAILY tiotropium bromide (Spiriva with HandiHaler) 1 cap inhalation DAILY Tobacco use date assessed: 12/24/24 Fall risk assessment: 2 + Falls in past year Last assessed Fall Risk: 12/24/24 Dental Screening Dental Screen Date: 12/24/24 Did you have a dental visit in the last 12 months?: Yes Did you have a dental problem in the last 6 months where you did not have access to dental care?: No Was dental information given to patient?: Patient has dentist HPI [facility] 12[facility]10 [facility] HPI Details 79-year-old female with past medical history of hypertension, anxiety, atrial fibrillation, depression, cardiomyopathy last seen by Dr. Garay 10/23/2024 coming in for hospital discharge follow up.?In review of the notes, patient was seen in [facility] and admitted 12/05/2024 for sepsis secondary to acute colitis as seen on CT scan. Patient was treated with IV fluids and Zosyn pain slowly improved throughout hospitalization.?Surgical evaluation advise supportive therapy advised by GI to undergo colonoscopy with endoscopy outpatient and hold Xarelto until Tuesday.?Patient was discharged home to 12/10/2024 advised to hold Xarelto for 1 week, continue on Augmentin for 5 days and follow up with Dr. Rosado in 1-2 weeks. Recent hospitalization was due to abdominal pain, followed by resolved episodes of bright red blood in the stool. The bleeding ceased after rest, indicating no further impact of dark or tarry stools. She did have 1 episode of bright red blood in the stool since discharge from the hospital which was several days ago and has not had any recurrence. She resumed her Xarelto as instructed and has not had bleeding issues since. She does mentioned having epigastric pain since taking the antibiotics. 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 She reports difficulty with affordability of Spiriva, which she finds effective, and experienced wheezing following a trial of a new inadequate medication. Her treatment with Breo is currently tolerated well. TCM TCM Information Date of Discharge 12/10/24 Discharged From [facility] Interactive Contact Date (Reference documentation from this date) 12/11/24 [facility] Medical History Rheumatoid arthritis Upper respiratory tract infection Skin lesion of face Skin abscess Hospital discharge follow-up Laceration of elbow, right Contusion of elbow, right Right knee skin infection Knee pain Pacemaker Sinus pause Opioid use disorder COPD with acute exacerbation COPD (chronic obstructive pulmonary disease) Left knee pain Paroxysmal atrial fibrillation Knee pain Abdominal pain Smoker Neurodermatitis COPD exacerbation Scalp abscess Vaginal discharge Skin lesion Osteoarthritis of thoracic spine Anxiety Surgical History History of basal cell carcinoma (BCC) excision Mammogram declined History of bilateral cataract extraction History of ectopic History of hip replacement History of nasal surgery Family History Father No problems noted. Mother No problems noted. Social History Household Members: None Housing: House Do you presently have visiting nurse or other home services: No Alcohol intake: former Patient Tobacco Use Status: Current someday Tobacco user Tobacco use type: Cigarette Cigarettes Per Day: 6 Years Smoked: 50 e-Cigarette/Vaping Use: Never Used Second Hand Smoke Exposure: Yes Advance Directives Date on File: 12/06/24 service: No Current occupational status: retired and disabled Cognitive needs: Yes Hearing needs: No Vision needs: No Questionnaire PHQ-9 Over the last 2 weeks, how often have you been bothered by any of the following problems? 1. Little interest or pleasure in doing things: several days 2. Feeling down, depressed, or hopeless: several days 3. Trouble falling or staying asleep, or sleeping too much: nearly every day 4. Feeling tired or having little energy: nearly every day 5. Poor appetite or overeating: not at all 6. Feeling bad about yourself - or that you are a failure or have let yourself or your family down: several days 7. Trouble concentrating on things, such as reading the newspaper or watching television: not at all 8. Moving or speaking so slowly that other people could have noticed. Or the opposite - being so fidgety or restless that you have been moving around a lot more than usual: not at all 9. Thoughts that you would be better off or of hurting yourself in some way: not at all Total score: 9 Depression Screening Interpretation: Positive Depression Screening Follow-up: Existing condition, In treatment, Follow-up Visit Requested and Declines treatment Depression Screening Done: Yes 29075 - PHQ-9 Billing: Yes Source: Developed by Drs. Dane Lindsey, Lynn Peña, Jose Vivas and colleagues, with an educational afsaneh from [employer]. Thrive Questionnaire Date Thrive assessed: 12/24/24 I am a: Patient What is your living situation today?: I have a steady place to live Within the past 12 months, did the food you bought not last and you didn't have the money to get more?: Never true Within the past 12 months, did you worry whether your food would run out before you got money to buy more?: Never true Do you have trouble paying for medicines?: No Do you have trouble getting transportation to medical appointments?: No Do you have trouble paying your heating and electricity bill?: No Do you have trouble taking care of your child, family member or friend?: No Do you have trouble with day-to-day activities such as bathing, preparing meals, shopping, managing finances, etc.?: No Are you currently unemployed and looking for a job?: No Are you interested in more education?: No Please select the resources that you would like help with: None Currently or been in a relationship where the following occur: No concerns reported THRIVE Score: 0 AUDIT C Alcohol Use Questionnaire (AUDIT-C) 1. How often do you have a drink containing alcohol?: Never Total Score: 0 Score Reviewed/Action Taken: No GORGE-7 AMB Questionnaire GORGE-7 Date GORGE - 7 assessed: 12/24/24 Feeling nervous, anxious, or on edge: 1 = Several days Not being able to stop or control worryin = Not at all Worrying too much about different things: 1 = Several days Trouble relaxin = Several days Being so restless that it is hard to sit still: 0 = Not at all Becoming easily annoyed or irritable: 1 = Several days Feeling afraid as if something awful might happen: 1 = Several days Total GORGE-7 score (0-4 normal; 5-9 mild; 10-14 moderate; 15-21 severe): 5 Source: Developed by Drs. Dane Lindsey, Lynn Peña, Jose Vivas and colleagues, with an educational afsaneh from [employer]. GORGE-7 Assessment Billing GORGE-7 Assessment Tool: GORGE-7 Assessment 17196 Review of Systems Const Denies body aches, Denies chills, Denies fever(s), Denies headache(s) and Denies poor appetite Eyes Reports no additional complaints ENT Denies dizziness and Denies headache(s) Card Denies chest pain, Denies lightheadedness and Denies dyspnea Resp Denies cough and Denies dyspnea GI Reports abdominal pain, Denies melena, Denies bloating, Denies hematochezia, Denies constipation, Denies diarrhea, Denies nausea and Denies vomiting Reports no additional complaints Musc Reports no additional complaints and Denies abnormal gait Skin/Breast Reports system reviewed and no additional complaints, except as documented Neuro Denies abnormal gait, Denies dizziness and Denies headache(s) Psych Reports no additional complaints Physical exam (Primary Care) Vital Signs: Last Vital Signs Pulse 74 12/24/24 13:13 BP 126/84 12/24/24 13:13 Pulse Ox 98 12/24/24 13:13 Oxygen Delivery Method Room Air 12/24/24 13:13 BMI result Body Mass Index 19.2 Tobacco/Smoking Status: Tobacco use Status Tobacco use date assessed 12/24/24 12/24/24 13:25 Patient Tobacco Use Status Current someday Tobacco 12/24/24 13:15 Tobacco use type Cigarette 12/24/24 13:15 e-Cigarette/Vaping Use Never Used 12/24/24 13:15 PHQ-9: PHQ-9 Score PHQ-9: Total score 9 12/24/24 14:26 Depression Screening Interpretation: Positive Depression Screening Follow-up: Existing condition, In treatment, Follow-up Visit Requested and Declines treatment Thrive Assessment: Date of Thrive Assessment Date Thrive assessed 12/24/24 12/24/24 13:25 Currently or been in a relationship where the following occur: No concerns reported Const General: cooperative, healthy appearing, comfortable and no acute distress Orientation/consciousness: patient oriented x3 HENMT Head: Yes normocephalic Ears: hearing grossly normal bilaterally General nose exam: Normal external nose present Eyes General: appearance normal, both eyes and all related structures Conjunctivae: conjunctivae normal Neck Neck: Yes full ROM and Yes no lymphadenopathy Resp Effort & Inspection: normal respiratory effort Auscultation: clear to auscultation bilaterally, no crackles, no rales, no rhonchi and no wheezes Cardio Rate: regular rate Rhythm: regular rhythm GI Palpation (GI): Soft to palpation, not firm, Tenderness to palpation present (GI) in the epigastrum; not in the LLQ, not in the RLQ, not in the LUQ and not in the RUQ, no guarding, not rigid and No Rebound tenderness present Skin General skin exam: no rashes or lesions noted Neuro General: patient oriented x3 Gait exam (Neuro): Normal gait present Extrem General: Yes normal to inspection, Yes full ROM and No edema Psych Affect: normal affect Attitude: cooperative Insight: Good insight present (Psych) Judgement: Good judgement present (Psych) Coding Level of Care Code TCM Mod MDM <= 14 Days Complex EM visit Add On G2211 Diagnoses Opioid use disorder, moderate, in early remission, on maintenance therapy, dependence F11.21 Essential hypertension I10 Cardiomyopathy, unspecified type I42.9 Cardiomyopathy type: unspecified Paroxysmal atrial fibrillation I48.0 Alcohol use disorder, moderate, dependence F10.20 Chronic obstructive pulmonary disease, unspecified COPD type J44.9 COPD type: unspecified COPD Actinic keratoses L57.0 Acute colitis K52.9 Additional Codes GORGE-7 Assessment Billing - GORGE-7 Assessment Tool: GORGE-7 Assessment 35786 ([id number]) PHQ-9 - 55655 - PHQ-9 Billing: Yes ([id number]) Assessment & Plan Assessment & Plan (1) Opioid use disorder, moderate, in early remission, on maintenance therapy, dependence: Code(s): F11.21 - Opioid dependence, in remission Category: Medical Plan: Follow-up with [facility]. (2) Essential hypertension: Code(s): I10 - Essential (primary) hypertension Category: Medical Plan: Continue on current blood pressure medication. Avoid salt intake and encourage healthy diet and regular exercise. Continue amlodipine and lisinopril. Blood pressure goal is equal or less than 130/80. (3) Cardiomyopathy: Code(s): I42.9 - Cardiomyopathy, unspecified Category: Medical Qualifiers: Cardiomyopathy type: unspecified Qualified Code(s): I42.9 - Cardiomyopathy, unspecified Plan: Continue to Follow-up with Cardiology. Monitor daily weights and goal is to not gain 5 lb in a week. (4) Paroxysmal atrial fibrillation: Comment: Status post ablation. Being maintained on antiarrhythmic with flecainide and has done very well with rhythm control approach Code(s): I48.0 - Paroxysmal atrial fibrillation Category: Medical Plan: Follow-up with Cardiology. Patient is currently on anticoagulation with Xarelto which was held 12/10/2024 and should have resumed last week. (5) Alcohol use disorder, moderate, dependence: Code(s): F10.20 - Alcohol dependence, uncomplicated Category: Medical Plan: Follow-up with [facility]. (6) COPD (chronic obstructive pulmonary disease): Comment: MODERATELY SEVERE CHRONIC OBSTRUCTIVE PULMONARY DISEASE IS DEFINITELY RELATED TO HER LONG-TIME SMOKING. * STRESSED AGAIN THAT SHE MUST QUIT SMOKING COMPLETELY . HER RESPIRATORY STATUS IS VERY STABLE, LUNGS ARE CLEAR AND SHE HAS NO ACTIVE WHEEZES. Code(s): J44.9 - Chronic obstructive pulmonary disease, unspecified Category: Medical Qualifiers: COPD type: unspecified COPD Qualified Code(s): J44.9 - Chronic obstructive pulmonary disease, unspecified Plan: Continue Breo and Spiriva. Follow-up with pulmonology. Smoking cigarettes and the use of tobacco can be harmful. We discussed the importance of stopping and options to aid in smoking cessation. (7) Actinic keratoses: Code(s): L57.0 - Actinic keratosis Category: Medical Plan: Dermatological concerns, particularly actinic keratosis, are to be revisited with a secondary evaluation arranged at [facility]. (8) Acute colitis: Code(s): K52.9 - Noninfective gastroenteritis and colitis, unspecified Category: Medical Plan: I will expedite an early follow-up consultation with Dr. Rosado to address concerns of recurrent bleeding following resolved bright red rectal bleeding episodes. Given the colitis background, the patient is advised to actively prevent constipation and increase dietary fiber intake, prioritizing hydration and specific food adjustments. Plan to repeat CBC with iron profile to ensure there is no active bleed. Epigastric tenderness and pain likely related to recent antibiotic use and acid reflux. Recommending use of Maalox and/or Pepto-Bismol as needed for pain and follow up with Gastroenterology. Plan This note was constructed using voice recognition software. While every effort has been made to ensure accuracy and transcriptionist, still areas may have been included sometimes these areas may affect the content or meeting of the given symptoms. Total time spent caring for the patient today was 30 minutes. This includes time spent before the visit reviewing the chart, time spent during the visit, and time spent after the visit and documentation. Patient was informed and verbally consented to the use of an ambient scribe for clinic note documentation during this visit. Orders: Orders IRON PROFILE Today K52.9 - Noninfective gastroenteritis and colitis, unspecified Complete Blood Count Auto Diff Today K52.9 - Noninfective gastroenteritis and colitis, unspecified Referrals Dermatology Referral L57.0 - Actinic keratosis
--- OUTSIDE RECORDS SUMMARY | 2024-12-24 14:34 | XMS_ITS | Data Portability ---
Author Organization [place] - [facility], [facility] Address [address] [place] [address] Care Team Providers Care Wheel Roller Name Role Phone JOE SHELBY Primary Care Provider [facility] OTHER REMI & WOMEN?S [facility] DERMAT[facility] OTHER Assessment Encounter Date Assessment [...] questions were answered prior to team departure. [email or web address] Not available 08/10/2022 14:13:30 Plan of Treatment [...] By Organization Details Last Modified Time 03/13/2021 [id number] Today you were seen for pain in [...] pain. [email or web address] Not available 03/13/2021 21:09:52 08/08/2022 [id number] rash: care instructions [email or web address] Not available 08/10/2022 14:14:03 Thank you for yo ur visit with [employer] today. We cannot always find the exact [...] in your condition between 8am-10pm, please call [employer] at [phone] to help navigate your care. Please seek [...] in your condition between 8am-10pm, please call [employer] at [phone] to help navigate your care. Not available 08/10/2022 14:12:58 Reason for Referral None Reported. Problems Name Problem SNOMED Code Status Onset Date Resolution Date Notes Provider Name and Address Organization Details Recorded Time Heart failure with normal ejection fraction 547097159 Active 2020 FEDERICO ANDERSON NP [address] [place], [address], [place] [facility] 20:24:01 Chronic obstructi ve pulmonary disease 33851761 Active 2020 FEDERICO ANDERSON NP [address] [place], [address], [place] [facility] 20:24:15 Smoker 12918785 Active 2020 FEDERICOROSALEE HERNÁNDEZRADHA, MED SURG RN [address], [place], [address], [place] [facility] 20:24:34 Pulmonary hypertens ion 43919197 Completed 202003/13/2021 FEDERICO JUSTIN, MED SURG RN [address], [place], [address], [place] [facility] 20:25:18 Mild pulmonary hypertens ion 990733638 Active 2020 FEDERICO JUSTIN, MED SURG RN [address], [place], [address], [place] [facility] 20:25:34 Paroxysma l atrial fibrillat ion 023993481 Active 2020 FEDERICOFrancisco ANDERSON, MED SURG RN [address], [place], [address], [place] [facility] 20:26:57 Scoliosis deformity of spine 380314378 Active 2020 FEDERICO JUSTIN, MED SURG RN [address], [place], [address], [place] [facility] 16:46:51 Gastroeso phageal reflux disease 748665484 Active 2020 FEDERICOFrancisco ANDERSON, MED SURG RN [address], [place], [address], [place] [facility] 16:47:02 Chronic hepatitis C 806608913 Completed 202003/14/2021 FEDERICOFrancisco ANDERSON, MED SURG RN [address], [place], [address], [place] [facility] 16:47:41 Osteoarth ritis 205431011 Active 2020 FEDERICO ANDERSON, MED SURG RN [address] [place], [address], [place] [facility] 16:48:10 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 Procedures Surgical History Date Name Laterality Status Provider Name and Address Organization Details Recorded Time prosthetic arthroplasty of the hip completed Crys Woody, GIANNA [address], [place], [address], [place] [facility] 06/14/2021 20:35:33 cardiac ablation using fluoroscopy guidance completed Crys Woody, GIANNA [address], [place], [address], [place] [facility] 06/14/2021 20:35:44 Imaging Results [...] RxNorm FEDERICO ANDERSON, GIANNA [address], [facility] [place], [address], [place] [facility] 16:45:41 [id number] tramadol medicatio n Not available Not available Not available 03/14/2021 [id number] RxNorm FEDERICO ANDERSON NP [address], [facility] [place], [address], [place] [facility] 16:45:49 [id number] succinylc holine Not available Not available Not available Not available 03/14/2021 67809 RxNorm FEDERICO ANDERSON NP [address], [facility] [place], [address], [place] [facility] 16:46:00 [id number] cat dander environme nt Not available Not available Not available 03/14/2021 [id number] UNK FEDERICO ANDERSON, MED SURG RN [address], [facility] [place], [address], [place] [facility] 16:46:09 [id number] [employer] environme nt,medica tion Not available Not available Not available 03/14/2021 [id number] 6 RxNorm FEDERICO ANDERSON, MED SURG RN [address] [facility] [place], [address], [place] [facility] 16:46:24 Medications Name Sig Start Date [...] /min 140 mm[Hg] 80 mm[Hg] Not Available [facility] 2 17:56:46 Social History Question Answer Notes LastModified by Organizat ion Details LastModified Time Tobacco Smoking Status Current Every Day Smoker Crys Woody, GIANNA [address] [facility] [place], [address], [place] [facility] 06/14/2021 20:38:21 Do You [...] Visiting Friends Or Family Or Going To Jewish Or Club Meetings) 1 Or 2 Times [...] Response Diabetes N Coronary Artery Disease Y Cancer N Stroke N Asthma N COPD Y Depression N High Cholesterol N Pulmonary Embolism N Hypertension N Kidney Disease N Gynecological HistoryNo gynecological history recorded. Obstetrics History GPAL:G 0 P 0 0 0 0 Past Encounters Encounter ID Performer Location Encounter Start Date Encounter Closed Date Diagnosis/Indication Diagnosis SNOMED-CT Code Diagnosis ICD10 Code Diagnosis Note [id number] FEDERICO ANDERSON NP [facility] [address] [place] [address] 03/13/2021 20:12:42 03/17/2021 17:32:37 Pain in right knee [id number] 30649 M25.561 Overview/H istory: Patient with h/o chronic [...] her discomfort . She agrees to discuss nursing home pain management with her PCP and pain management provider. In order to obtain further informatio n and compare any laboratory results/va lues, I have accessed {{old patient records pa tient records on the [employer]* reviewed records with the PCP}}. This informatio n was pertinent in my medical decision making today. [id number] Crys Woody NP [facility] [address] [facility] [place] [address] 06/14/2021 20:32:34 06/15/2021 14:08:15 Pain of right elbow joint 4512380594 2384533 M25.521 Edema of elbow 419569602 R60.0 Overview/H istory: Patient is a 75 [...] Patient keon agrees to escort patient to [place] ER for ARTURO evaluation of probable fracture given her level of pain and inability to complete self care. [facility] ED called and report provided. Right elbow [...] after care of this patient according to [facility]'s infection prevention protocols. In order to obtain further informatio n and compare any laboratory results/va lues, I have accessed {{old patient records* p atient records on the [employer] r eviewed records with the PCP}}. This informatio n was pertinent in my medical decision making today. Tear of skin 168231009 T 14.8XXA Pain in elbow 58246350 M 25.521 [id number] April GIANNA [facility] [address] [facility] [place] [address] 08/08/2022 17:20:49 08/11/2022 06:07:43 Contact dermatitis 02116793 L25.9 Health Concerns Section Related Observation LastModified by Organization Detai ls LastModified Time None Recorded Concern Status LastModified by Organization Details LastModified Time None Recorded Advance Directives Directive N: Payers Encounter Date Sequence Insurance Name Policy Number Policy Samuel Covered Member ID Samuel Member ID Guarantor Name 03/13/2021 1 [facility] PLAN (MEDICARE REPLACEMENT HMO) Yamileth Sandoval [id number] Yamileth Pembertongianni 06/14/2021 1 [facility] (MEDICARE REPLACEMENT HMO) Yamileth Pembertongianni [id number] Yamileth Pembertongianni 08/08/2022 1 [facility] (MEDICARE REPLACEMENT PPO) Yamileth Pembertongianni [id number] Yamileth Sandoval Notes Date Note Type Note [...] taking oxycodone prescribed by Dr Price at [facility] who manages her chronic pain and has [...] comfortable. FEDERICO ANDERSON, GIANNA [address], [place], [address], [place] [facility] 03/14/2021 18:03:41 06/14/2021 text/html Patient is [...] dependence. Crys Woody NP [address], [place], [address], [place] [facility] 06/16/2021 09:54:30 08/08/2022 text/html 77 YO F patient established with however new to . Per patient she has neuro dermatitis x 13 years and is experiencing a flare up, she has an appointment with [facility] August 17 and needs pain medication [...] reaction. Stephie Lora NP [address], [place], [address], [place] [facility] 08/10/2022 14:14:18 OBGyn Episode No OBEpisode recorded.
== END 2024-12-24 14:10 | disposition home or self-care (01) ==
PROVIDERS: PCP Internal Medicine
DX: I48.0 Paroxysmal atrial fibrillation (principal); F11.21 Opioid dependence, in remission; I42.9 Cardiomyopathy, unspecified; F10.20 Alcohol dependence, uncomplicated; J44.9 Chronic obstructive pulmonary disease, unspecified; I10 Essential (primary) hypertension; L57.0 Actinic keratosis; K52.9 Noninfective gastroenteritis and colitis, unspecified

== ENCOUNTER → 2024-12-24 12:59 | Outpatient (BNVA) | payer OTHER, SELFPAY | PROVIDERS: PCP Internal Medicine | DX: F11.21 Opioid dependence, in remission (principal); I10 Essential (primary) hypertension; I42.9 Cardiomyopathy, unspecified; I48.0 Paroxysmal atrial fibrillation; F10.20 Alcohol dependence, uncomplicated; J44.9 Chronic obstructive pulmonary disease, unspecified; L57.0 Actinic keratosis; K52.9 Noninfective gastroenteritis and colitis, unspecified | CPT/HCPCS: 96127; 99495 ==

== ENCOUNTER → 2024-12-24 23:59 | Outpatient (BNV) | payer OTHER, SELFPAY ==
--- NOTE | 2024-12-26 15:12 | A.OFFVIS_ITS ---
Intake Visit Reasons: Remote Device Check- [employer]onic Allergies succinylcholine [SUCCINYLCHOLINE] Allergy (Severe, Verified 12/24/24 13:15) EXCESSIVE PARALYSIS tramadol Allergy (Intermediate, Verified 12/24/24 13:15) diarrhea, upset stomach cat dander [CATS] Allergy (Mild, Verified 12/24/24 13:15) UNKNOWN dog dander [DOGS] Allergy (Mild, Verified 12/24/24 13:15) UNKNOWN pollen extracts [POLLEN] Allergy (Mild, Verified 12/24/24 13:15) UNKNOWN gabapentin Adverse Reaction (Mild, Verified 12/24/24 13:15) Nausea and Vomiting DUST Allergy (Mild, Uncoded 12/24/24 13:15) UNKNOWN [facility] Medical History Rheumatoid arthritis Upper respiratory tract infection Skin lesion of face Skin abscess Hospital discharge follow-up Laceration of elbow, right Contusion of elbow, right Right knee skin infection Knee pain Pacemaker Sinus pause Opioid use disorder COPD with acute exacerbation COPD (chronic obstructive pulmonary disease) Left knee pain Paroxysmal atrial fibrillation Knee pain Abdominal pain Smoker Neurodermatitis COPD exacerbation Scalp abscess Vaginal discharge Skin lesion Osteoarthritis of thoracic spine Anxiety Surgical History History of basal cell carcinoma (BCC) excision Mammogram declined History of bilateral cataract extraction History of ectopic History of hip replacement History of nasal surgery Family History Father No problems noted. Mother No problems noted. Social History Household Members: None Housing: House Do you presently have visiting nurse or other home services: No Alcohol intake: former Patient Tobacco Use Status: Current someday Tobacco user Tobacco use type: Cigarette Cigarettes Per Day: 6 Years Smoked: 50 Packs per year/per ci.00 e-Cigarette/Vaping Use: Never Used Second Hand Smoke Exposure: Yes Advance Directives Date on File: 12/06/24 service: No Current occupational status: retired and disabled Cognitive needs: Yes Hearing needs: No Vision needs: No Office Procedures Cardiac Device Check Cardiac Device Check Details: Remote pacemaker report generated 12/24/2024. Pacemaker function is adequate [id number] Cardiac Device Interrogation, pacemaker Procedure code (CPT) selection complete Assessment & Plan Assessment & Plan (1) Pacemaker: Comment: Medtronic dual-chamber pacemaker placement 12/07/2021 Code(s): Z95.0 - Presence of cardiac pacemaker Category: Medical Plan: See above Coding Level of Care Code Procedure Only Diagnoses Pacemaker Z95.0 CPT Codes Cardiac Device Check - Cardiac Device 12: [id number] Cardiac Device Interrogation, pacemaker ([id number])
== END ==
PROVIDERS: PCP Internal Medicine; Visit Provider Internal Medicine Cardiovascular Disease
DX: Z45.018 Encounter for adjustment and management of other part of cardiac pacemaker (principal)
CPT/HCPCS: 93294

== ENCOUNTER 2025-01-11 12:09 | Outpatient (REF) | payer OTHER, SELFPAY ==
[2025-01-11 12:27] LABS: MANUAL DIFF FLAG NO
[2025-01-11 13:00] LABS: Basophils Absolute Auto 0.1 X10*3/uL (0.0-0.2); Basophils Percent Auto 0.7 % (0-2); Eosinophils Absolute Auto 0.2 X10*3/uL (0.0-0.4); Hemoglobin 12.4 g/dl (12.0-16.0); Imm Gran Abs Auto 0.02 X10*3/uL (0.00-0.03); Imm Gran Pct Auto 0.3 % (0.0-0.4); Lymphocytes Absolute Auto 2.1 X10*3/uL (1.2-4.9); Lymphocytes Percent Auto 31.1 % (20-40); Mean Corpuscular HGB Conc 32.6 g/dl (31.0-35.0); Mean Corpuscular Hemoglobin 29.6 pg (27.0-33.0); Mean Corpuscular Volume 90.7 fL (80.0-98.0); Mean Platelet Volume 10.6 fL (9.4-12.3); Monocytes Absolute Auto 0.7 X10*3/uL (0.1-1.2); Monocytes Percent Auto 10.4 % (2-11); Neutrophils Absolute Auto 3.8 x10*3/uL (2.0-8.3); Neutrophils Percent Auto 54.5 % (45-73); Platelet Count 221 X10*3/uL (160-400); Red Blood Count 4.19 X10*6/uL (4.20-5.50); Red Cell Distribution Width 13.4 % (11.0-16.0); White Blood Count 6.9 X10*3/uL (4.8-10.8)
[2025-01-11 13:22] LABS: Iron 49 mcg/dL (30-160); Percent Iron Saturation 17 % (15-50); Potassium 4.6 mmol/L (3.3-5.1); Total Iron Binding Capacity 293 mcg/dL (228-428); Unsaturated Iron Binding 244 ug/dL
== END 2025-01-11 12:10 | disposition home or self-care (01) ==
LOC: HO.LAB 12:09
PROVIDERS: PCP Internal Medicine; Visit Provider Internal Medicine
DX: K52.9 Noninfective gastroenteritis and colitis, unspecified (principal); E87.6 Hypokalemia
CPT/HCPCS: 36415; 83540; 84132; 85025

== ENCOUNTER 2025-02-08 14:31 | Outpatient (AMB) | payer OTHER, SELFPAY ==
[2025-02-08 14:48] VITALS: BP 128/72; PULSE 66; O2SAT 97; BMI 19.4
--- NOTE | 2025-02-08 14:48 | MHC.OFFVIS ---
Vital Signs 02/08/25 14:48 Height 5 ft 2 in Weight 106 lb BMI 19.4 BP 128/72 Pulse 66 Pulse Oximetry (%) 97 Intake Visit Reasons: MAT Allergies succinylcholine [SUCCINYLCHOLINE] Allergy (Severe, Verified 02/08/25 14:50) EXCESSIVE PARALYSIS tramadol Allergy (Intermediate, Verified 02/08/25 14:50) diarrhea, upset stomach cat dander [CATS] Allergy (Mild, Verified 02/08/25 14:50) UNKNOWN dog dander [DOGS] Allergy (Mild, Verified 02/08/25 14:50) UNKNOWN pollen extracts [POLLEN] Allergy (Mild, Verified 02/08/25 14:50) UNKNOWN gabapentin Adverse Reaction (Mild, Verified 02/08/25 14:50) Nausea and Vomiting DUST Allergy (Mild, Uncoded 02/08/25 14:50) UNKNOWN HPI HPI MAT: Details: She has been doing well. She is not drinking and is sober. She is here in person today. She takes Suboxone 2/.5 but was asking for Oxy due to general joint discomfort and she has LLQ hernia. She smokes 7-8 [place] nicotine cigarettes a day but doesnt want to quit. She had skin cancer on top of head. She is not interested in counseling or labs (doesnt have any HIV or Hepatitis C she says). [facility] Medical History Rheumatoid arthritis Upper respiratory tract infection Skin lesion of face Skin abscess Hospital discharge follow-up Laceration of elbow, right Contusion of elbow, right Right knee skin infection Knee pain Pacemaker Sinus pause Opioid use disorder COPD with acute exacerbation COPD (chronic obstructive pulmonary disease) Left knee pain Paroxysmal atrial fibrillation Knee pain Abdominal pain Smoker Neurodermatitis COPD exacerbation Scalp abscess Vaginal discharge Skin lesion Osteoarthritis of thoracic spine Anxiety Surgical History History of basal cell carcinoma (BCC) excision Mammogram declined History of bilateral cataract extraction History of ectopic History of hip replacement History of nasal surgery Family History Father No problems noted. Mother No problems noted. Social History Household Members: None Housing: House Do you presently have visiting nurse or other home services: No Alcohol intake: former Patient Tobacco Use Status: Current someday Tobacco user Tobacco use type: Cigarette Cigarettes Per Day: 6 Years Smoked: 50 e-Cigarette/Vaping Use: Never Used Second Hand Smoke Exposure: Yes Advance Directives Date on File: 12/06/24 service: No Current occupational status: retired and disabled Cognitive needs: Yes Hearing needs: No Vision needs: No Review of Systems Const All systems reviewed & are unremarkable except as noted in HPI and below Physical Exam Vital Signs: Last Vital Signs Pulse 66 02/08/25 14:48 BP 128/72 02/08/25 14:48 Pulse Ox 97 02/08/25 14:48 BMI result Body Mass Index 19.4 Const General: cooperative Assessment & Plan Assessment & Plan (1) Opioid use disorder, moderate, in early remission, on maintenance therapy, dependence: Comment: She is doing well with one Suboxone daily but was last filled on 12/25. She gets alprazolam .25 bid from [facility] psychiatrist and wants more and was told to ask her. Code(s): F11.21 - Opioid dependence, in remission Category: Medical Plan: Virtual visit in 2 months. Continue same dose and one refill given Suboxone. Orders: Orders AMB 14 Panel Urine Drug Screen Today Z51.81 - Encounter for therapeutic drug level monitoring Medications: New buprenorphine-naloxone 2-0.5 mg (Suboxone) place 1 strip/tab under (each) side of tongue 1 film sublingual DAILY 30 ea 1RF 30 days Coding Level of Care Code Est Pt Level 3 (67782) Diagnoses Opioid use disorder, moderate, in early remission, on maintenance therapy, dependence F11.21
--- OUTSIDE RECORDS SUMMARY | 2025-02-08 15:12 | XMS_ITS | Data Portability ---
Author Organization [place] - [facility], Allergy Address [address] [facility] [address] [place] [address] Care Team Providers Care Court Clerk Name Role Phone JOE SOTO Primary Care Provider Assessment Encounter Date Assessment Date Assessment LastModified by Organization Details LastModified Time 11/30/2024 11/30/2024 Patient presents for evaluation, having been told she had ruptured the left tympanic membrane. Physical exam reveals a large bloody scab. Right ear impacted with cerumen. Patient intolerant of any instrumentation in either ear. Recommend 10 day course of mineral oil to loosen the scan and the cerumen, and return for re-evaluation with audiometry and tympanometry. [email or web address] Not available 11/30/2024 13:59:59 Plan of Treatment Reminders Order Date Submit Date Provider Last Modified By Organization Details Last Modified Time Details Appointments None record ed. Lab None record ed. Referral None record ed. Procedures None record ed. Surgeries None record ed. Imaging None record ed. Medication Orders None record ed. Patient TargetsNo targets recorded. Patient InstructionsNo instructions recorded. Reason for Referral None Reported. Problems Name Problem SNOMED Code Status Onset Date Resolution Date Notes Provider Name and Address Organization Details Recorded Time Impacted cerumen in right ear 3337983940310 103 Active 2024 GLORY ALEXANDER PA-C [address] [facility] [address], [place], [address], [facility] - [facility] 13:39:41 Otorrhagia of left ear 1700549690314 105 Active 2024 GLORY ALEXANDER PA-C [address] [facility] [address], [place], [address], [facility] - [facility] 5 13:39:46 Problem Notes None recorded. Medical Equipment None Reported. Medications Name Sig Start Date Stop Date Status Note LastModified by Organization Details LastModified Time amoxicillin 500 mg capsule active Not Available Not Available N ot Available diclofenac 3 % topical gel active Not Available Not Available Not Available ketoconazole 2 % shampoo active Not Available Not Available No t Available lisinopril 20 mg tablet active Not Available Not Available No t Available propranolol ER 60 mg capsule,24 hr,extended release active Not Available Not Available Not Available clobetasol 0.05 % topical cream active Not Available Not Availa ble Not Available amlodipine 5 mg tablet active Not Available Not Available Not Available alprazolam 0.5 mg tablet active Not Available Not Available No t Available alprazolam 0.25 mg tablet active Not Available Not Available No t Available buspirone 10 mg tablet active Not Available Not Available Not Available flecainide 100 mg tablet active Not Available Not Available No t Available mupirocin calcium 2 % topical cream active Not Available Not Availabl e Not Available hydroxyzine HCl 25 mg tablet active Not Available Not Available Not Available mupirocin 2 % topical ointment active Not Available Not Available Not Available hydroxyzine HCl 10 mg tablet active Not Available Not Available Not Available amoxicillin 875 mg-potassium clavulanate 125 mg tablet active Not Available Not Available No t Available buspirone 15 mg tablet active Not Available Not Available Not Available oxycodone 5 mg tablet active Not Available Not Available Not Available escitalopram 5 mg tablet active Not Available Not Available No t Available Spiriva with HandiHaler 18 mcg and inhalation capsules active Not Available Not Available Not Available buprenorphine 2 mg-naloxone 0.5 mg sublingual film active Not Available Not Available Not Available Xarelto 20 mg tablet active Not Available Not Available Not Available Breo Ellipta 100 mcg-25 mcg/dose powder for inhalation active Not Available Not Availab le Not Available Opzelura 1.5 % topical cream active Not Available Not Availabl e Not Available Vitals None Recorded Social History None recorded. Functional Status None recorded. Mental Status None recorded. Family History Nothing Reported. Medical History No medical history recorded. Gynecological HistoryNo gynecological history recorded. Obstetrics History GPAL:G 0 P 0 0 0 0 Past Encounters Encounter ID Performer Location Encounter Start Date Encounter Closed Date Diagnosis/Indication Diagnosis SNOMED-CT Code Diagnosis ICD10 Code Diagnosis Note [id number] GLORY ALEXANDER PA-C [facility] [address] [place] [address] 11/30/2024 13:09:09 11/30/2024 13:48:48 Impacted cerumen in right ear 2369291028 151126 H61.21 Otorrhagia of left ear 5080927960 914701 H92.22 Health Concerns Section Related Observation LastModified by Organization Detai ls LastModified Time None Recorded Concern Status LastModified by Organization Details LastModified Time None Recorded Advance Directives Directive None Recorded Payers Encounter Date Sequence Insurance Name Policy Number Policy Samuel Covered Member ID Samuel Member ID Guarantor Name 11/30/2024 1 [employer] PLAN (MEDICARE SUPPLEMENT) Yamileth Lori [id number] Yamileth Sandoval Notes Date Note Type Note Provider Name and Address Organization Details Recorded Time 11/30/2024 text/html 79 year old sandra latham presents for evaluation of the ears. She uses cotton in her ear when she washes her hair. There was blood on the tissue from the left ear about 10 days ago. Her hearing was down. She went to urgent care and they cleaned it out. That improved the hearing a bit. She was given a prescription for Augmentin, which she took for 7 days. She got ear plugs and has been using those since this happened. She does not feel the hearing is all the way back to baseline. She states she had a hearing test a few years back that was normal. There is some watery drainage. No blood recently. GLORY ALEXANDER PA-C [address] [place] [address], [address], [facility] - [facility] 11/30/2024 14:00:30 OBGyn Episode No OBEpisode recorded.
== END 2025-02-08 15:34 | disposition home or self-care (01) ==
LOC: HO.HCC 14:31
PROVIDERS: PCP Internal Medicine; Visit Provider Internal Medicine
DX: F11.21 Opioid dependence, in remission (principal); Z51.81 Encounter for therapeutic drug level monitoring
CPT/HCPCS: 99213

== ENCOUNTER → 2025-02-08 14:31 | Outpatient (BNVA) | payer OTHER, SELFPAY | PROVIDERS: PCP Internal Medicine; Visit Provider Internal Medicine | DX: F11.21 Opioid dependence, in remission (principal) | CPT/HCPCS: 80307; 99212 ==

== ENCOUNTER 2025-02-25 11:51 | Outpatient (AMB) | payer OTHER, SELFPAY ==
--- NOTE | 2025-02-25 11:52 | A.OFFVIS_ITS ---
Vital Signs 02/25/25 12:00 Height 5 ft 2 in Weight 109 lb BMI 19.9 BP 184/91 H Blood Pressure Location Rt brachial Position Sitting Pulse 87 Intake Visit Reasons: rediscuss hernia Intake Note: Patient scheduled today's visit to re- discuss hernia surgery. Reports blood pressure high because I forgot to take blood pressure medicine this am. Patient c/o RUQ pain that spreads to back. Takes Xarelto. 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 Accompanied by: Self / Same As Patient Allergies succinylcholine [SUCCINYLCHOLINE] Allergy (Severe, Verified 02/25/25 11:58) EXCESSIVE PARALYSIS tramadol Allergy (Intermediate, Verified 02/25/25 11:58) diarrhea, upset stomach cat dander [CATS] Allergy (Mild, Verified 02/25/25 11:58) UNKNOWN dog dander [DOGS] Allergy (Mild, Verified 02/25/25 11:58) UNKNOWN pollen extracts [POLLEN] Allergy (Mild, Verified 02/25/25 11:58) UNKNOWN gabapentin Adverse Reaction (Mild, Verified 02/25/25 11:58) Nausea and Vomiting DUST Allergy (Mild, Uncoded 02/25/25 11:58) UNKNOWN HPI HPI rediscuss hernia: Details: 79-year-old female with multiple medical problems including COPD, and has a pacemaker, here again for follow-up for a left groin hernia. I had been following her in the office for a while now because of this reducible hernia. She says that she has been noticing this reducible mass on the left groin. This causes some discomfort. She does not really state how long she has noticed this. She has known history of heavy smoking and she has COPD. She does not use O2 supplementation at this time. She also describes chronic back pain and asked for oxycodone for this. She says that she has had a hard time to get this prescription from her primary care physician. When I saw her in 12/06/2023, she stated that she did not want to proceed with repair because of her overall medical condition. She actually has had multiple visits with me here in the office to schedule this but she had always postpone this. She also has missed several appointments. She now wants to schedule this again. She describes discomfort on the area. She he is now contemplating again on proceeding with left inguinal hernia repair. She also says that she has this chronic pain on her left lower back and needs pain medications for this. [facility] Medical History Rheumatoid arthritis Upper respiratory tract infection Skin lesion of face Skin abscess Hospital discharge follow-up Laceration of elbow, right Contusion of elbow, right Right knee skin infection Knee pain Pacemaker Sinus pause Opioid use disorder COPD with acute exacerbation COPD (chronic obstructive pulmonary disease) Left knee pain Paroxysmal atrial fibrillation Knee pain Abdominal pain Smoker Neurodermatitis COPD exacerbation Scalp abscess Vaginal discharge Skin lesion Osteoarthritis of thoracic spine Anxiety Surgical History History of basal cell carcinoma (BCC) excision Mammogram declined History of bilateral cataract extraction History of ectopic History of hip replacement History of nasal surgery Family History Father No problems noted. Mother No problems noted. Social History Household Members: None Housing: House Do you presently have visiting nurse or other home services: No Alcohol intake: former Patient Tobacco Use Status: Current someday Tobacco user Tobacco use type: Cigarette Cigarettes Per Day: 6 Years Smoked: 50 e-Cigarette/Vaping Use: Never Used Second Hand Smoke Exposure: Yes Advance Directives Date on File: 12/06/24 service: No Current occupational status: retired and disabled Cognitive needs: Yes Hearing needs: No Vision needs: No Review of Systems Const Denies chills and Denies fever(s) Card Denies chest pain, Denies dyspnea and Reports dyspnea on exertion Resp Denies cough, Denies dyspnea and Reports dyspnea on exertion GI Denies hematochezia and Denies change in bowel habits Denies hematuria Musc Reports back pain and Denies limited range of motion Neuro Denies focal weakness and Denies convulsions Psych Reports anxiety, Denies depression and Denies mood swings Physical Exam Vital Signs: Last Vital Signs Pulse 87 02/25/25 12:00 BP 184/91 H 02/25/25 12:00 BMI result Body Mass Index 19.9 Const General: comfortable and no acute distress Orientation/consciousness: patient oriented x3 Neck Neck: Yes no lymphadenopathy Resp Auscultation: clear to auscultation bilaterally Cardio Rhythm: regular rhythm GI Other: Reducible hernia in the left groin, not tender Palpation (GI): Soft to palpation, nontender and no guarding Back/Spine/Pelvis Other: Tenderness on the left lower back with note of some redness of the skin Neuro General: patient oriented x3 Assessment & Plan Assessment & Plan (1) Left inguinal hernia: Code(s): K40.90 - Unilateral inguinal hernia, without obstruction or gangrene, not specified as recurrent Category: Medical Plan: She is here for her reducible left inguinal hernia. I have been following her for this for more than a year now. She now states that she is thinking of proceeding with repair. I reviewed with the technique of repair of this left inguinal hernia with mesh. I reviewed the risks including but not limited to bleeding, infections, injury to bowel, recurrence, postop pain, as well as the benefits and alternatives. She understands that she has multiple medical problems including COPD, history of cardiomyopathy and has a pacemaker in place. All of these may increase her perioperative risks. She says she understands and will schedule for this left inguinal hernia repair. She says that she has been cleared bright all her doctors for this procedure already. She has asking for some mild narcotics for her pain on the left back as well as for the left groin Coding Level of Care Code Est Pt Level 3 (23376) Diagnoses Left inguinal hernia K40.90
[2025-02-25 12:00] VITALS: BP 184/91; PULSE 87; BMI 19.9
--- OUTSIDE RECORDS SUMMARY | 2025-02-25 12:33 | XMS_ITS | Data Portability ---
Author Organization [place] [facility], [facility] Address [address] [place] [address] Care Team Providers Care Visiting Teacher Name Role Phone JOE SHELBY Primary Care Provider [phone] [facility] OTHER REMI & WOMEN?S [facility] DER[facility] OTHER Assessment Encounter Date [...] questions were answered prior to team departure. Not available 08/10/2022 14:13:30 Plan of Treatment [...] By Organization Details Last Modified Time 03/13/2021 [id number] Today you were seen for pain in [...] pain. [email or web address] Not available 03/13/2021 21:09:52 08/08/2022 [id number] rash: care instructions [email or web address] Not available 08/10/2022 14:14:03 Thank you for yo ur visit with [facility] today. We cannot always find the exact [...] in your condition between 8am-10pm, please call [facility] at [phone] to help navigate your care. Please seek [...] in your condition between 8am-10pm, please call [facility] at [phone] to help navigate your care. [email or web address] Not available 08/10/2022 14:12:58 Reason for Referral None Reported. Problems Name Problem SNOMED Code Status Onset Date Resolution Date Notes Provider Name and Address Organization Details Recorded Time Heart failure with normal ejection fraction 174940343 Active 2020 FEDERICO ANDERSON NP [address] [place], [address], [place] [facility] 20:24:01 Chronic obstructi ve pulmonary disease 57262329 Active 2020 FEDERICO ANDERSON NP [address] [place], [address], [place] [facility] 20:24:15 Smoker 93880360 Active 2020 FEDERICOROSALEE HERNÁNDEZRADHA, CASTING MACHINE OPERATOR HELPER [address], [place], [address], [place] [facility] 20:24:34 Pulmonary hypertens ion 11096024 Completed 202003/13/2021 FEDERICO JUSTIN, CASTING MACHINE OPERATOR HELPER [address], [place], [address], [place] [facility] 20:25:18 Mild pulmonary hypertens ion 616141372 Active 2020 FEDERICO JUSTIN, CASTING MACHINE OPERATOR HELPER [address], [place], [address], [place] [facility] 20:25:34 Paroxysma l atrial fibrillat ion 939425268 Active 2020 FEDERICOrFancisco ANDERSON, CASTING MACHINE OPERATOR HELPER [address], [place], [address], [place] [facility] 20:26:57 Scoliosis deformity of spine 801983089 Active 2020 FEDERICO JUSTIN, CASTING MACHINE OPERATOR HELPER [address], [place], [address], [place] [facility] 16:46:51 Gastroeso phageal reflux disease 415856444 Active 2020 FEDERICOFrancisco ANDERSON, CASTING MACHINE OPERATOR HELPER [address], [place], [address], [place] [facility] 16:47:02 Chronic hepatitis C 864200632 Completed 202003/14/2021 FEDERICOFrancisco ANDERSON, CASTING MACHINE OPERATOR HELPER [address], [place], [address], [place] [facility] 16:47:41 Osteoarth ritis 594878522 Active 2020 FEDERICO ANDERSON, CASTING MACHINE OPERATOR HELPER [address] [place], [address], [place] [facility] 16:48:10 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 Procedures Surgical History Date Name Laterality Status Provider Name and Address Organization Details Recorded Time prosthetic arthroplasty of the hip completed Crys Woody, GIANNA [address], [place], [address], [place] [facility] 06/14/2021 20:35:33 cardiac ablation using fluoroscopy guidance completed Crys Woody, GIANNA [address], [place], [address], [place] [facility] 06/14/2021 20:35:44 Imaging Results [...] RxNorm FEDERICO ANDERSON, GIANNA [address], [facility], [address], [place] [facility] 16:45:41 [id number] tramadol medicatio n Not available Not available Not available 03/14/2021 89479 RxNorm FEDERICO ANDERSON NP [address], [place], [address], [place] [facility] 16:45:49 528903 succinylc holine Not available Not available Not available Not available 03/14/2021 61778 RxNorm FEDERICO ANDERSON NP [address], [place], [address], [place] [facility] 16:46:00 [id number] cat dander environme nt Not available Not available Not available 03/14/2021 [id number] UNK FEDERICO ANDERSON, CASTING MACHINE OPERATOR HELPER [address], [facility], [address], [place] [facility] 16:46:09 [id number] POLLEN EXTRACTS environme nt,medica tion Not available Not available Not available 03/14/2021 93265 6 RxNorm FEDERICO ANDERSON, CASTING MACHINE OPERATOR HELPER [address] [facility] [place], [address], [place] [facility] 16:46:24 Medications Name Sig Start Date Stop [...] /min 140 mm[Hg] 80 mm[Hg] Not Available [facility] 17:56:46 Social History Question Answer Notes LastModified by Organizat ion Details LastModified Time Tobacco Smoking Status Current Every Day Smoker Crys Woody, GIANNA [address] [place], [place] [address], [place], [address], [place] [facility] 06/14/2021 20:38:21 Do You [...] Visiting Friends Or Family Or Going To Restorationist Or Club Meetings) 1 Or 2 Times [...] To Resources? None Information not available 06/14/2021 How Many Years Have You Smoked Tobacco? 55 Information not available 06/14/2021 Sex: Unknown Functional Status Question Answer Note LastModified by Organizat ion Details LastModified Time Do you use any illicit or recreational drugs? No Information not available 06/14/2021 Do you or have you ever used any other forms of tobacco or nicotine? No Information not available 06/14/2021 What is your level of alcohol consumption? None Information not available 06/14/2021 Mental Status None recorded. Family History Nothing Reported. Medical History Condition Response Coronary Artery Disease Y Depression N COPD Y Cancer N Stroke N High Cholesterol N Kidney Disease N Diabetes N Asthma N Pulmonary Embolism N Hypertension N Gynecological HistoryNo gynecological history recorded. Obstetrics History GPAL:G 0 P 0 0 0 0 Past Encounters Encounter ID Performer Location Encounter Start Date Encounter Closed Date Diagnosis/Indication Diagnosis SNOMED-CT Code Diagnosis ICD10 Code Diagnosis Note [id number] FEDERICO ANDERSON NP [facility] [address] [facility] [place] [address] 03/13/2021 20:12:42 03/17/2021 17:32:37 Pain in right knee 3681431081 20323 M25.561 Overview/H istory: Patient with h/o chronic [...] her discomfort . 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 In order to obtain further informatio n and compare any laboratory results/va lues, I have accessed {{old patient records pa tient records on the [place] [employer] [facility]* reviewed records with the PCP}}. This informatio n was pertinent in my medical decision making today. [id number] Crys Woody NP [facility] [address] [facility] [place] [address] 06/14/2021 20:32:34 06/15/2021 14:08:15 Pain of right elbow joint 7949042989 0243639 M25.521 Edema of elbow 396632076 R60.0 Overview/H istory: Patient is a 75 [...] Patient keon agrees to escort patient to [facility] for [facility]O evaluation of probable fracture given her level of pain and inability to complete self care. [facility] ED called and report provided. Right elbow [...] after care of this patient according to Count includes the [facility]'s infection prevention protocols. In order to obtain further informatio n and compare any laboratory results/va lues, I have accessed {{old patient records* p atient records on the [place] [employer] r eviewed records with the PCP}}. This informatio n was pertinent in my medical decision making today. Tear of skin 016710292 T 14.8XXA Pain of elbow region 743 04809 M25.521 [id number] April GIANNA Lora [facility] [address] [facility] [place] [address] 08/08/2022 17:20:49 08/11/2022 06:07:43 Contact dermatitis 30468561 L25.9 Health Concerns Section Related Observation LastModified by Organization Detai ls LastModified Time None Recorded Concern Status LastModified by Organization Details LastModified Time None Recorded Advance Directives Directive N: Payers Insurance Date Sequence Insurance Name Policy Number Policy Samuel Covered Member ID Samuel Member ID Guarantor Name 08/13/2022 1 [employer] - SENIOR PLAN (MEDICARE REPLACEMENT PPO) Yamileth Sandoval [id number] Yamileth Sandoval 03/13/2021 1 [place] [employer] Yamileth Sandoval [id number] Yamileth Sandoval 09/26/2019 1 *SELF PAY* Yamileth Sandoval [id number] Yamileth Sandoval 03/13/2021 2 [place] [facility] Yamileth Sandoval [id number] Yamileth Sandoval 03/13/2021 2 [place] [facility] Yamileth Sandoval [id number] Yamileth Sandoval 03/13/2021 2 [place] [facility] Yamileth Sandoval [id number] Yamileth Sandoval 03/13/2021 2 [place] [facility] Yamileth Sandoval [id number] Yamileth Pembertongianni 03/13/2021 2 [place] [facility] Yamileth Sandoval [id number] Yamileth Sandoval 08/07/2022 1 [facility] - SENIOR PLAN (MEDICARE REPLACEMENT HMO) Yamileth Pembertongianni [id number] Yamileth Pembertongianni 03/13/2021 2 [place] [facility] Yamileth Sandoval [id number] Yamileth Sandoval 03/13/2021 1 [facility] - MEDICARE PREFERRED (MEDICARE REPLACEMENT HMO) Yamileth Pembertongianni [id number] Yamileth Pembertongianni Notes Date Note Type Note Provider Name [...] lower extremity. Had previous arthroscopy by Dr Harvey ortho, in 2010 of the right knee [...] [place] [facility] [place] her chronic pain and has [...] weak strength was comfortable. FEDERICO ANDERSON, GIANNA [address] [place] [address], [address], [place] [facility] 03/14/2021 18:03:41 06/14/2021 text/html Patient is [...] dependence. Crys Woody, GIANNA [address], [place], [address], [place] [facility] 06/16/2021 09:54:30 08/08/2022 text/html 77 YO F [...] prescribed however she sustained an allergic reaction. April GIANNA Lora [address], [place], [address], [place] [facility] 08/10/2022 14:14:18 OBGyn Episode No OBEpisode recorded.
--- OUTSIDE RECORDS SUMMARY | 2025-02-25 12:33 | XMS_ITS | Data Portability ---
Author Organization [place] - [facility], Allergy Address [address] [facility] [address] [place] [address] Care Team Providers Care Scrap Metal Burner Name Role Phone JOE SOTO Primary Care Provider [phone] Assessment Encounter Date Assessment Date Assessment LastModified [...] Recorded Time Impacted cerumen in right ear [id number] 103 Active 2024 GLORY ALEXANDER PA-C [address] [facility] [address], [place], [address], [facility] - [facility] 13:39:41 Otorrhagia of left ear 3777042841226 105 Active 2024 GLORY ALEXANDER PA-C [address] [facility] [address], [facility] [place], [address], [facility] - [facility] 5 13:39:46 Problem Notes None recorded. Medical [...] SNOMED-CT Code Diagnosis ICD10 Code Diagnosis Note [id number] GLORY ALEXANDER PA-C [facility] [address] [place] [address] 11/30/2024 13:09:09 11/30/2024 13:48:48 Impacted cerumen in right ear 8269223247 887279 H61.21 Otorrhagia of left ear 1144321117 895440 H92.22 Health Concerns Section Related Observation LastModified by Organization Detai ls LastModified Time None Recorded Concern Status LastModified by Organization Details LastModified Time None Recorded Advance Directives Directive None Recorded Payers Insurance Date Sequence Insurance Name Policy Number Policy Samuel Covered Member ID Samuel Member ID Guarantor Name 01/04/2025 1 [facility] - SENIOR PLAN (MEDICARE SUPPLEMENT) Yamileth Pembertongianni [id number] Yamileth Elmiraonofre 11/30/2024 2 [place]: [facility] Yamileth Lori [id number] Yamileth Lori 12/13/2024 1 [facility] - SENIOR PLAN (MEDICARE REPLACEMENT HMO) Yamileth Kuonofre [id number] Yamileth Kuonofre 12/07/2024 2 [place] [employer] Yamileth Pembertongianni [id number] Yamileth Pembertongianni 01/04/2025 1 [facility] - SENIOR PLAN (MEDICARE REPLACEMENT PPO) Yamileth Kuonofre [id number] Yamileth Pembertongianni Notes Date Note Type Note [...] drainage. No blood recently. GLORY ALEXANDER PA-C [address], [address], [facility] - [facility] 11/30/2024 14:00:30 OBGyn Episode No OBEpisode recorded.
== END 2025-02-25 12:19 | disposition home or self-care (01) ==
LOC: HO.HGS 11:52
PROVIDERS: PCP Internal Medicine; Visit Provider Surgery
DX: K40.90 Unilateral inguinal hernia, without obstruction or gangrene, not specified as recurrent (principal)
CPT/HCPCS: 99213

== ENCOUNTER → 2025-02-25 11:51 | Outpatient (BNVA) | payer OTHER, SELFPAY | PROVIDERS: PCP Internal Medicine; Visit Provider Surgery | DX: K40.90 Unilateral inguinal hernia, without obstruction or gangrene, not specified as recurrent (principal) | CPT/HCPCS: 99212 ==

== ENCOUNTER → 2025-03-25 23:59 | Outpatient (BNV) | payer OTHER, SELFPAY ==
--- NOTE | 2025-03-26 18:16 | MHC.OFFVIS ---
Intake Visit Reasons: Remote Device Check- Medtronic Allergies succinylcholine [SUCCINYLCHOLINE] Allergy (Severe, Verified 02/25/25 11:58) EXCESSIVE PARALYSIS tramadol Allergy (Intermediate, Verified 02/25/25 11:58) diarrhea, upset stomach cat dander [CATS] Allergy (Mild, Verified 02/25/25 11:58) UNKNOWN dog dander [DOGS] Allergy (Mild, Verified 02/25/25 11:58) UNKNOWN pollen extracts [POLLEN] Allergy (Mild, Verified 02/25/25 11:58) UNKNOWN gabapentin Adverse Reaction (Mild, Verified 02/25/25 11:58) Nausea and Vomiting DUST Allergy (Mild, Uncoded 02/25/25 11:58) UNKNOWN [facility] Medical History Rheumatoid arthritis Upper respiratory tract infection Skin lesion of face Skin abscess Hospital discharge follow-up Laceration of elbow, right Contusion of elbow, right Right knee skin infection Knee pain Pacemaker Sinus pause Opioid use disorder COPD with acute exacerbation COPD (chronic obstructive pulmonary disease) Left knee pain Paroxysmal atrial fibrillation Knee pain Abdominal pain Smoker Neurodermatitis COPD exacerbation Scalp abscess Vaginal discharge Skin lesion Osteoarthritis of thoracic spine Anxiety Surgical History History of basal cell carcinoma (BCC) excision Mammogram declined History of bilateral cataract extraction History of ectopic History of hip replacement History of nasal surgery Family History Father No problems noted. Mother No problems noted. Social History Household Members: None Housing: House Do you presently have visiting nurse or other home services: No Alcohol intake: former Patient Tobacco Use Status: Current someday Tobacco user Tobacco use type: Cigarette Cigarettes Per Day: 6 Years Smoked: 50 e-Cigarette/Vaping Use: Never Used Second Hand Smoke Exposure: Yes Advance Directives Date on File: 12/06/24 service: No Current occupational status: retired and disabled Cognitive needs: Yes Hearing needs: No Vision needs: No Office Procedures Cardiac Device Check Cardiac Device Check Details: Remote pacemaker report generated 03/25/2025. Pacemaker function is adequate [id number] Cardiac Device Interrogation, pacemaker Procedure code (CPT) selection complete Assessment & Plan Assessment & Plan (1) Pacemaker: Comment: Medtronic dual-chamber pacemaker placement 12/07/2021 Code(s): Z95.0 - Presence of cardiac pacemaker Category: Medical Plan: See above Coding Level of Care Code Procedure Only Diagnoses Pacemaker Z95.0 CPT Codes Cardiac Device Check - Cardiac Device 12: [id number] Cardiac Device Interrogation, pacemaker ([id number])
== END ==
PROVIDERS: PCP Internal Medicine; Visit Provider Internal Medicine Cardiovascular Disease
DX: Z45.018 Encounter for adjustment and management of other part of cardiac pacemaker (principal)
CPT/HCPCS: 93294

== ENCOUNTER 2025-04-08 12:59 | Outpatient (AMB) | payer OTHER, SELFPAY ==
--- NOTE | 2025-04-08 13:30 | MHC.OFFVIS ---
Vital Signs 04/08/25 13:31 Height 5 ft 2 in Weight 109 lb 2.061 oz BMI 20.0 BP 140/110 H Blood Pressure Location Lt brachial Pulse 79 Pulse Source Pulse Oximeter Pulse Oximetry (%) 99 Oxygen Delivery Method Room Air Intake Visit Reasons: hernia surgery Intake Note: pt is here for pre-op clearance for possible hernia surgery, no date yet, she is very scared about this, breathing is good, spirvia handihaler is not being given, she would like this back , she is using Breo. Lead Supply Worker Required: No Allergies succinylcholine (SUCCINYLCHOLINE) Allergy (Severe, Verified 04/08/25 14:15) EXCESSIVE PARALYSIS tramadol Allergy (Intermediate, Verified 04/08/25 14:15) diarrhea, upset stomach cat dander (CATS) Allergy (Mild, Verified 04/08/25 14:15) UNKNOWN dog dander (DOGS) Allergy (Mild, Verified 04/08/25 14:15) UNKNOWN pollen extracts (POLLEN) Allergy (Mild, Verified 04/08/25 14:15) UNKNOWN gabapentin Adverse Reaction (Mild, Verified 04/08/25 14:15) Nausea and Vomiting DUST Allergy (Mild, Uncoded 04/08/25 14:15) UNKNOWN Medication List - Last Reconciled 04/08/25 by Tala Taylor MD alprazolam 0.25 mg PO BID buprenorphine-naloxone 2-0.5 mg (Suboxone) 1 film sublingual DAILY 30 days buspirone 15 mg PO BID cane As directed clobetasol 0.05% 1 appl topical BID flecainide 100 mg PO Q12H fluticasone furoate-vilanterol 100-25 mcg/dose (Breo Ellipta) 1 inh inhalation DAILY hydroxyzine HCl 25 mg PO TID ketoconazole 2% 1 appl topical DAILY lisinopril 20 mg PO DAILY 90 days oxycodone-acetaminophen 2.5-325 mg (Percocet) 1 tab PO TID PRN propranolol ER 60 mg PO DAILY 90 days rivaroxaban (Xarelto) 20 mg PO DAILY tiotropium bromide (Spiriva with HandiHaler) 1 cap inhalation DAILY 30 days Do you need a note to return to daycare/school/sports/work: No HPI HPI hernia surgery: Details: Yamileth is 79 years old female, with longstanding history of smoking, asthma/COPD, who has left inguinal hernia and needs to have surgery. She comes today for pulmonary clearance, at the same time she is expressing < I a.m. scared to have the surgery Smoking on up to 10 cigarettes a day. So she has somewhat increased cough but no expectoration no wheezing. Major part of our conversation was about the Spiriva HandiHaler. As per her insurance she has the generic version of tiotropium- bromide . Say is it is not working at all and she wants to go back to Spiriva HandiHaler. Then she also discussed with me about her chronic neuro dermatitis, and what else can she do. [facility], [facility] Medical History Rheumatoid arthritis Upper respiratory tract infection Skin lesion of face Skin abscess Hospital discharge follow-up Laceration of elbow, right Contusion of elbow, right Right knee skin infection Knee pain Pacemaker Sinus pause Opioid use disorder COPD with acute exacerbation COPD (chronic obstructive pulmonary disease) Left knee pain Paroxysmal atrial fibrillation Knee pain Abdominal pain Smoker Neurodermatitis COPD exacerbation Scalp abscess Vaginal discharge Skin lesion Osteoarthritis of thoracic spine Anxiety Surgical History History of basal cell carcinoma (BCC) excision Mammogram declined History of bilateral cataract extraction History of ectopic History of hip replacement History of nasal surgery Family History Father No problems noted. Mother No problems noted. Social History Household Members: None Housing: House Do you presently have visiting nurse or other home services: No Alcohol intake: former Patient Tobacco Use Status: Current someday Tobacco user Tobacco use type: Cigarette Cigarettes Per Day: 6 Years Smoked: 50 e-Cigarette/Vaping Use: Never Used Second Hand Smoke Exposure: Yes Advance Directives Date on File: 12/06/24 service: No Current occupational status: retired and disabled Cognitive needs: Yes Hearing needs: No Vision needs: No Review of Systems Const All systems reviewed & are unremarkable except as noted in HPI and below Eyes Reports no additional complaints ENT Reports nasal congestion (Mild off and on) Card Denies chest pain, Reports irregular heart rhythm, Denies leg edema and Reports other (Has pacemaker in left pectoral area) Resp Reports as per HPI GI Reports no additional complaints Reports no additional complaints Musc Reports back pain (Chronic) and Reports arthralgias Skin/Breast Reports rash (Chronic neuro dermatitis) Neuro Reports no additional complaints Psych Reports anxiety Physical Exam Vital Signs: Last Vital Signs Pulse 79 04/08/25 13:31 BP 140/110 H 04/08/25 13:31 Pulse Ox 99 04/08/25 13:31 Oxygen Delivery Method Room Air 04/08/25 13:31 BMI result Body Mass Index 20.0 Const General: comfortable, no acute distress, alert and awake Orientation/consciousness: patient oriented x3 HEENT Head: Yes normal to inspection General nose exam: No nasal polyps present and No nasal discharge present Face and sinus: Yes sinuses nontender Mouth: oropharynx normal Throat: Yes posterior oropharynx normal Eyes General: appearance normal, both eyes and all related structures Neck Neck: Yes normal visual inspection, Yes no lymphadenopathy, Yes trachea midline and Yes no JVD Thyroid: Thyroid normal Chest Chest palpation & inspection: normal inspection of the chest (As pacemaker battery in the left pectoral area), normal palpation of entire chest wall, deferred and no tenderness Resp Other: Percussion note hyper-resonant, breath sounds are distant with prolonged expiratory phase but equal on both sides. No wheezes crepitations or rhonchi are heard. Cardio Palpation: normal PMI Rate: regular rate Rhythm: regular rhythm Heart sounds: no gallops and no murmurs GI Palpation (GI): Soft to palpation, nontender, No hepatosplenomegaly present and no masses Auscultation: normal bowel sounds Back/Spine/Pelvis Thoracic/Lumbar Spine: thoracic and lumbar spine normal to inspection, Thoracic/lumbar scoliosis (Of dorsal lumbar spine) and thoraco-lumbar spasm Skin General skin exam: crusts (Multiple areas of ulcerated and crusted rash especially on scalp and back) Neuro General: patient oriented x3 and no focal motor deficits Cranial nerves: Yes CN's II-XII intact bilaterally Extrem General: Yes normal to inspection, Yes no clubbing, cyanosis or edema and Yes no calf tenderness Psych Speech and movement: Normal speech and movement present Assessment & Plan Assessment & Plan (1) Smoker: Comment: THIS IS HER LIFELONG ISSUE, SHE CONTINUES TO SMOKE. SHE IS DEFINITELY DEPENDENT UPON NICOTINE AND ANY EVENT OF STRESS INCREASES THE NUMBER OF CIGARETTES. CLAIMS THAT SHE HAD CUT DOWN THE CIGARETTES TO 6 A DAY, BUT LATELY INCREASED TO 10 CIGs A DAY Code(s): F17.200 - Nicotine dependence, unspecified, uncomplicated Category: Social Hx Plan: HAD A LENGTHY TALK ABOUT SMOKING AGAIN. I ADVISED HER TO CUT DOWN THE CIGARETTES, MUCH SHE CAN. ALSO SHE DOES NEED TO BE REGISTERED IN THE ANNUAL LUNG SCREENING PROGRAM. (2) COPD (chronic obstructive pulmonary disease): Comment: MODERATELY SEVERE CHRONIC OBSTRUCTIVE PULMONARY DISEASE IS DEFINITELY RELATED TO HER LONG-TIME SMOKING. Code(s): J44.9 - Chronic obstructive pulmonary disease, unspecified Category: Medical Qualifiers: COPD type: unspecified COPD Qualified Code(s): J44.9 - Chronic obstructive pulmonary disease, unspecified Plan: * STRESSED AGAIN THAT SHE MUST QUIT SMOKING COMPLETELY . SHE SHOULD ALSO JOIN THE ANNUAL LUNG SCREENING PROGRAM. CONTINUE TO USE BREO 100-251 INHALATION DAILY. SHE IS INSISTING ON GETTING SPIRIVA HANDIHALER , BRAND NAME, BUT ONCE AGAIN WE CHECKED WITH PHARMACY AND IT WOULD NOT BE COVERED. AN ALTERNATIVE I WILL ORDER ATROVENT HFA AND ADVISE HER TO USE 2 PUFFS TWICE A DAY. Plan RE: PULMONARY CLEARANCE FOR HERNIORRHAPHY HER RESPIRATORY STATUS IS FAIRLY STABLE THOUGH SHE DOES HAVE MODERATELY SEVERE OBSTRUCTIVE AIRWAY DISORDER. THERE IS NO CONTRAINDICATION TO THE SURGERY FOR INGUINAL HERNIORRHAPHY. SHE NEEDS TO QUIT OR AT LEAST CUT DOWN THE NUMBER OF CIGARETTES BEFORE SURGERY Orders: Referrals Lung Cancer Screening Referral F17.200 - Nicotine dependence, unspecified, uncomplicated, J44.9 - Chronic obstructive pulmonary disease, unspecified Medications: New Spiriva with HandiHaler (tiotropium bromide) puncture 1 cap using device; one dose = 2 inhalations PATIENT DOES NOT LIKE THE GENERIN TIOTROPIU BROMIDE 1 cap inhalation DAILY 30 caps 3RF COPD 30 days NS ipratropium bromide 17 mcg/actuation 2 puffs inhalation TID 12.9 grams 3RF COPD 30 days Coding Level of Care Code Est Pt Level 3 (99507) Diagnoses Smoker F17.200 Chronic obstructive pulmonary disease, unspecified COPD type J44.9 COPD type: unspecified COPD
[2025-04-08 13:31] VITALS: BP 140/110; PULSE 79; O2SAT 99
--- OUTSIDE RECORDS SUMMARY | 2025-04-08 14:23 | XMS_ITS | Data Portability ---
Author Organization [place] - [facility], Allergy Address [address] [facility] [address] [place] [address] Care Team Providers Care Canceling Machine Operator Name Role Phone VI SINGH JOE Primary Care Provider [phone] Assessment Encounter Date Assessment Date Assessment LastModified [...] Recorded Time Impacted cerumen in right ear [id number] 103 Active 2024 GLORY ALEXANDER PA-C [address] [address], [place], [address], [facility] - [facility] 13:39:41 Otorrhagia of left ear [id number] 105 Active 2024 GLORY ALEXANDER PA-C [address] [address], [place], [address], [facility] 5 13:39:46 Problem Notes None recorded. [...] SNOMED-CT Code Diagnosis ICD10 Code Diagnosis Note [id number] GLORY ALEXANDER PA-C [facility] [address] [place] [address] 11/30/2024 13:09:09 11/30/2024 13:48:48 Impacted cerumen in right ear [id number] 369561 H61.21 Otorrhagia of left ear [id number] 133920 H92.22 Health Concerns Section Related Observation LastModified by Organization Detai ls LastModified Time None Recorded Concern Status LastModified by Organization Details LastModified Time None Recorded Advance Directives Directive None Recorded Payers Insurance Date Sequence Insurance Name Policy Number Policy Samuel Covered Member ID Samuel Member ID Guarantor Name 01/04/2025 1 [facility] - SENIOR PLAN (MEDICARE SUPPLEMENT) Yamileth Lori [id number] Yamileth Lori 11/30/2024 2 [place] [facility] Yamileth Lori [id number] Yamilethdejuan Sandoval 12/13/2024 1 [facility] - SENIOR PLAN (MEDICARE REPLACEMENT HMO) Yamileth Lori [id number] Yamileth Lori 12/07/2024 2 [place] [employer] Yamileth Kuonofre [id number] Yamileth Lori 01/04/[address] [facility] - SENIOR PLAN (MEDICARE REPLACEMENT PPO) Yamileth Lori [id number] Yamileth Pembertongianni Notes Date Note Type Note [...] No blood recently. GLORY ALEXANDER PA-C [address], [address], [facility] - [facility] 11/30/2024 14:00:30 OBGyn Episode No OBEpisode recorded.
== END 2025-04-08 14:17 | disposition home or self-care (01) ==
LOC: HO.HPS 13:00
PROVIDERS: PCP Internal Medicine; Visit Provider Internal Medicine
DX: F17.200 Nicotine dependence, unspecified, uncomplicated (principal); J44.9 Chronic obstructive pulmonary disease, unspecified
CPT/HCPCS: 99213

== ENCOUNTER → 2025-04-08 12:59 | Outpatient (BNVA) | payer OTHER, SELFPAY | PROVIDERS: PCP Internal Medicine; Visit Provider Internal Medicine | DX: Z01.810 Encounter for preprocedural cardiovascular examination (principal); K40.90 Unilateral inguinal hernia, without obstruction or gangrene, not specified as recurrent; J44.9 Chronic obstructive pulmonary disease, unspecified; F17.210 Nicotine dependence, cigarettes, uncomplicated | CPT/HCPCS: 99212 ==

== ENCOUNTER 2025-04-12 10:28 | Outpatient (AMB) | payer OTHER, SELFPAY ==
--- OUTSIDE RECORDS SUMMARY | 2025-04-12 11:15 | XMS_ITS | Data Portability ---
Author Organization [place] - [facility], Allergy Address [address] [facility] [address] [place] [address] Care Team Providers Care Hop Farmer Name Role Phone VI SINGH JOE Primary Care Provider [phone] Assessment Encounter Date Assessment Date Assessment LastModified [...] Recorded Time Impacted cerumen in right ear [id number] 103 Active 2024 GLORY ALEXANDER PA-C [address] [address], [place], [address], [facility] - [facility] 13:39:41 Otorrhagia of left ear [id number] 105 Active 2024 GLORY ALEXANDER PA-C [address] [address], [place], [address], [facility] [...] SNOMED-CT Code Diagnosis ICD10 Code Diagnosis Note [id number] GLORY ALEXANDER PA-C [facility] [address] [place] [address] 11/30/2024 13:09:09 11/30/2024 13:48:48 Impacted cerumen in right ear [id number] 838468 H61.21 Otorrhagia of left ear 8474954916 279104 H92.22 Health Concerns Section Related Observation LastModified by Organization Detai ls LastModified Time None Recorded Concern Status LastModified by Organization Details LastModified Time None Recorded Advance Directives Directive None Recorded Payers Insurance Date Sequence Insurance Name Policy Number Policy Samuel Covered Member ID Samuel Member ID Guarantor Name 01/04/2025 1 [facility] - SENIOR PLAN (MEDICARE SUPPLEMENT) Yamileth Lori [id number] Yamileth Lori 11/30/2024 2 [place] [facility] Yamileth Lori [id number] Yamilethdejuan Sandoval 12/13/2024 1 [facility] - SENIOR PLAN (MEDICARE REPLACEMENT HMO) Yamileth Lori [id number] Yamileth Lori 12/07/2024 2 MEDICARE B[place]: [employer] Yamileth Kuonofre [id number] Yamileth Lori 01/04/[address] [facility] - SENIOR PLAN (MEDICARE REPLACEMENT PPO) Yamileth Lori [id number] Yamileth Pembertongianni Notes Date Note Type Note [...] No blood recently. GLORY ALEXANDER PA-C [address], [address], [facility] - [facility] 11/30/2024 14:00:30 OBGyn Episode No OBEpisode recorded.
--- NOTE | 2025-04-15 14:10 | MHC.AM.SUB ---
Intake Visit Reasons: MAT Allergies succinylcholine (SUCCINYLCHOLINE) Allergy (Severe, Verified 04/08/25 14:15) EXCESSIVE PARALYSIS tramadol Allergy (Intermediate, Verified 04/08/25 14:15) diarrhea, upset stomach cat dander (CATS) Allergy (Mild, Verified 04/08/25 14:15) UNKNOWN dog dander (DOGS) Allergy (Mild, Verified 04/08/25 14:15) UNKNOWN pollen extracts (POLLEN) Allergy (Mild, Verified 04/08/25 14:15) UNKNOWN gabapentin Adverse Reaction (Mild, Verified 04/08/25 14:15) Nausea and Vomiting DUST Allergy (Mild, Uncoded 04/08/25 14:15) UNKNOWN HPI HPI MAT: Details: This is a televisit. She has been taking Suboxone as indicated and only has one left. Review of Systems Const All systems reviewed & are unremarkable except as noted in HPI and below Physical Exam Const General: cooperative [facility] Medical History Rheumatoid arthritis Upper respiratory tract infection Skin lesion of face Skin abscess Hospital discharge follow-up Laceration of elbow, right Contusion of elbow, right Right knee skin infection Knee pain Pacemaker Sinus pause Opioid use disorder COPD with acute exacerbation COPD (chronic obstructive pulmonary disease) Left knee pain Paroxysmal atrial fibrillation Knee pain Abdominal pain Smoker Neurodermatitis COPD exacerbation Scalp abscess Vaginal discharge Skin lesion Osteoarthritis of thoracic spine Anxiety Surgical History History of basal cell carcinoma (BCC) excision Mammogram declined History of bilateral cataract extraction History of ectopic History of hip replacement History of nasal surgery Family History Father No problems noted. Mother No problems noted. Social History Household Members: None Housing: House Do you presently have visiting nurse or other home services: No Alcohol intake: former Patient Tobacco Use Status: Current someday Tobacco user Tobacco use type: Cigarette Cigarettes Per Day: 6 Years Smoked: 50 e-Cigarette/Vaping Use: Never Used Second Hand Smoke Exposure: Yes Advance Directives Date on File: 12/06/24 service: No Current occupational status: retired and disabled Cognitive needs: Yes Hearing needs: No Vision needs: No Assessment & Plan Assessment & Plan (1) Alcohol use disorder, moderate, dependence: Comment: She has been not drinking alcohol. Code(s): F10.20 - Alcohol dependence, uncomplicated Category: Medical Plan: See as scheduled. (2) Opioid use disorder, moderate, in early remission, on maintenance therapy, dependence: Comment: She is doing well with one Suboxone daily but was last filled on 12/25. She gets alprazolam .25 bid from [facility] psychiatrist and wants more and was told to ask her. Code(s): F11.21 - Opioid dependence, in remission Category: Medical Plan: na Medications: New buprenorphine-naloxone 2-0.5 mg (Suboxone) place 1 strip/tab under (each) side of tongue 1 film buccal DAILY 30 ea 1RF 30 days
== END 2025-04-12 10:28 | disposition home or self-care (01) ==
LOC: HO.HCC 10:28
PROVIDERS: PCP Internal Medicine; Visit Provider Internal Medicine
DX: F10.20 Alcohol dependence, uncomplicated (principal); F11.21 Opioid dependence, in remission
CPT/HCPCS: 99213

== ENCOUNTER → 2025-04-12 10:28 | Outpatient (BNVA) | payer OTHER, SELFPAY | PROVIDERS: PCP Internal Medicine; Visit Provider Internal Medicine | DX: F10.20 Alcohol dependence, uncomplicated (principal); F11.21 Opioid dependence, in remission | CPT/HCPCS: 99212 ==

== ENCOUNTER 2025-05-08 11:54 | Outpatient (AMB) | payer OTHER, SELFPAY ==
--- OUTSIDE RECORDS SUMMARY | 2025-05-08 12:40 | XMS_ITS | Encounter Summary ---
Author Organization [facility] Address [address] [facility] [address] [place] [address] Phone Care Team Providers Care Senior Consultant Name Role Phone Pcp, Unknown Primary Care Provider Unavailabl e Encounter Details Date Type Department Care Team (Late st Contact Info) Description 08/20/[address] [facility] [address] [address] [email or web address] Social History Tobacco Use Types Packs/Day Years Used Date Smoking Tobacco: Every Day Cigarettes 0.3 59 Smokeless Tobacco: Never Comments:8 cigarettes daily, vape Alcohol Use Standard Drinks/Week Comments Not Currently 0 (1 standard drink = 0.6 oz pur e alcohol) Comments Unknown Sex and Gender Information Value Date Recorded Sex Assigned at Not on file Legal Sex Female 4:09 PM EDT Gender Identity Not on file Sexual Orientation Not on file documented as of this encounter Progress Notes * Myriam Boudreaux - 08/20/2022 9:49 AM EDT documented in this encounter Plan of Treatment Not on file documented as of this encounter Visit Diagnoses Not on filedocumented in this encounter Care Teams Senior Consultant Relationship Specialty Start Date End Date Pcp, Unknown PCP - General 06/22/22 documented as of this encounter Additional Source Comments The information contained in this document represents components of the legal health record. It is not the complete legal health record.[facility]
--- OUTSIDE RECORDS SUMMARY | 2025-05-08 12:40 | XMS_ITS | Data Portability ---
Author Organization [place] - [facility], Allergy Address [address] [facility] [address] [place] [address] Care Team Providers Care Job Specification Writer Name Role Phone VI SINGH JOE Primary Care Provider Assessment Encounter Date Assessment [...] Recorded Time Impacted cerumen in right ear [id number] 103 Active 2024 GLORY ALEXANDER PA-C [address] [address], [place], [address], [facility] - [facility] 13:39:41 Otorrhagia of left ear [id number] 105 Active 2024 GLORY ALEXANDER PA-C [address] [address], [place], [address], [facility] 5 13:39:46 Problem Notes None recorded. [...] SNOMED-CT Code Diagnosis ICD10 Code Diagnosis Note [id number] GLORY ALEXANDER PA-C [facility] [address] [place] [address] 11/30/2024 13:09:09 11/30/2024 13:48:48 Impacted cerumen in right ear [id number] 687140 H61.21 Otorrhagia of left ear [id number] 948730 H92.22 Health Concerns Section Related Observation LastModified by Organization Detai ls LastModified Time None Recorded Concern Status LastModified by Organization Details LastModified Time None Recorded Advance Directives Directive None Recorded Payers Insurance Date Sequence Insurance Name Policy Number Policy Samuel Covered Member ID Samuel Member ID Guarantor Name 01/04/2025 1 [facility] - SENIOR PLAN (MEDICARE SUPPLEMENT) Yamileth Lori [id number] Yamileth Lori 11/30/2024 2 [place] [facility] Yamileth Lori [id number] Yamilethdejuan Sandoval 12/13/2024 1 [facility] - SENIOR PLAN (MEDICARE REPLACEMENT HMO) Yamileth Lori [id number] Yamileth Lori 12/07/2024 2 MEDICARE B-[place]: [employer] Yamileth Kuonofre [id number] Yamileth Lori 01/04/2025 1 [facility] - SENIOR PLAN (MEDICARE REPLACEMENT PPO) Yamileth Lori [id number] Yamileth Pembertongianni Notes Date Note Type Note [...] No blood recently. GLORY ALEXANDER PA-C [address], [address], [facility] - [facility] 11/30/2024 14:00:30 OBGyn Episode No OBEpisode recorded.
--- NOTE | 2025-05-08 12:41 | AM.OFFWIN_ITS ---
Intake Vital Signs 05/08/25 12:42 Height 5 ft 2 in Weight 105 lb BMI 19.2 BP 124/80 Blood Pressure Location Lt brachial Position Sitting Pulse 69 Pulse Source Pulse Oximeter Temp 98.7 F Temp Source Oral Pulse Oximetry (%) 95 Oxygen Delivery Method Room Air Intake Visit Reasons: EP rash on back, neck & both ears Intake Note: presents with burning rash on scalp, neck and back Patient Tobacco Use Status: Current someday Tobacco user Allergies succinylcholine (SUCCINYLCHOLINE) Allergy (Severe, Verified 05/08/25 12:45) EXCESSIVE PARALYSIS tramadol Allergy (Intermediate, Verified 05/08/25 12:45) diarrhea, upset stomach cat dander (CATS) Allergy (Mild, Verified 05/08/25 12:45) UNKNOWN dog dander (DOGS) Allergy (Mild, Verified 05/08/25 12:45) UNKNOWN pollen extracts (POLLEN) Allergy (Mild, Verified 05/08/25 12:45) UNKNOWN gabapentin Adverse Reaction (Mild, Verified 05/08/25 12:45) Nausea and Vomiting DUST Allergy (Mild, Uncoded 04/08/25 14:15) UNKNOWN Do you need a note to return to daycare/school/sports/work: No HPI HPI Comments History of Present Illness Details History - The patient is a 79-year-old female pr esenting with management of neurodermatitis and associated symptoms. - Neurodermatitis has been a long-standi ng condition for the patient, with the metallurgical laboratory assistant unable to provide further treatment options. - The patient reports burning sensations at sites of lesions, which appear like golf balls, and has been using clobetasol cream with uncertain efficacy. - The patient has a history of skin canc er, treated with surgery and liquid nitrogen two years ago, with residual symptoms including oozing and skin shedding. - She states that she has been oozing f luid and black things from her scalp . - She thinks that she has an infection. - She has been using mupiciron cream to the areas. - She denies new rashes or lesions, feve r, chills, CP, SOB, or joint pain. Physical Exam General: Cooperative, healthy appearing, comfortable, no acute distress and well developed Respiratory: Normal respiratory effort and able to speak in complete sentences. Clear to auscultation bilaterally. No w/r/r noted. Cardiovascular: RRR, no m/r/g noted. Normal S1 and S2 Skin: Areas of scarring and alopecia on the scalp. Raised, non- tender, non- fluctuant nodule on the left lateral parietal region. Patch of open skin noted on the posterior neck and mid left back. No discharge, redness or streaking noted. Patient was informed and verbally consented to the use of an ambient scribe for clinic note documentation during this visit [facility] Medical History Rheumatoid arthritis Upper respiratory tract infection Skin lesion of face Skin abscess Hospital discharge follow-up Laceration of elbow, right Contusion of elbow, right Right knee skin infection Knee pain Pacemaker Sinus pause Opioid use disorder COPD with acute exacerbation COPD (chronic obstructive pulmonary disease) Left knee pain Paroxysmal atrial fibrillation Knee pain Abdominal pain Smoker Neurodermatitis COPD exacerbation Scalp abscess Vaginal discharge Skin lesion Osteoarthritis of thoracic spine Anxiety Surgical History History of basal cell carcinoma (BCC) excision Mammogram declined History of bilateral cataract extraction History of ectopic History of hip replacement History of nasal surgery Family History Father No problems noted. Mother No problems noted. Social History Household Members: None Housing: House Do you presently have visiting nurse or other home services: No Alcohol intake: former Patient Tobacco Use Status: Current someday Tobacco user Tobacco use type: Cigarette Cigarettes Per Day: 6 Years Smoked: 50 e-Cigarette/Vaping Use: Never Used Second Hand Smoke Exposure: Yes Advance Directives Date on File: 12/06/24 service: No Current occupational status: retired and disabled Cognitive needs: Yes Hearing needs: No Vision needs: No Review of Systems Const All systems reviewed & are unremarkable except as noted in HPI and below Physical Exam Vital Signs: Last Vital Signs Temp 98.7 F 05/08/25 12:42 Pulse 69 05/08/25 12:42 BP 124/80 05/08/25 12:42 Pulse Ox 95 05/08/25 12:42 Oxygen Delivery Method Room Air 05/08/25 12:42 BMI result Body Mass Index 19.2 Assessment & Plan Assessment & Plan (1) Atopic dermatitis of scalp: Code(s): L20.9 - Atopic dermatitis, unspecified (2) Neurodermatitis: Code(s): 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 Neurodermatitis - Continue current topical treatment with clobetasol cream as needed. - prednisone for 5 days - mupirocin cream to the areas as prescribed - Consider follow up with metallurgical laboratory assistant for further evaluation and management options. 2. History Of Skin Cancer - Monitor for any new or changing lesions, especially in previously treated areas. - Follow-up with dermatology as scheduled on May 19 for ongoing assessment. Medications: New methylprednisolone PO PER PKG DIR for 6 days 21 ea 0RF clobetasol 0.05% 1 appl topical BID 45 grams 0RF 1 week Coding Level of Care Code Est Pt Level 3 (68326) Diagnoses Atopic dermatitis of scalp L20.9 Neurodermatitis L28.0
[2025-05-08 12:42] VITALS: BP 124/80; PULSE 69; TEMP 37.1; O2SAT 95; BMI 19.2
== END 2025-05-08 13:47 | disposition home or self-care (01) ==
PROVIDERS: PCP Internal Medicine; Visit Provider Physician Assistant Medical
DX: L20.9 Atopic dermatitis, unspecified (principal); L28.0 Lichen simplex chronicus

== ENCOUNTER → 2025-05-08 11:54 | Outpatient (BNVA) | payer OTHER, SELFPAY | PROVIDERS: PCP Internal Medicine; Visit Provider Physician Assistant Medical | DX: L28.0 Lichen simplex chronicus (principal); L20.9 Atopic dermatitis, unspecified | CPT/HCPCS: 99212 ==

== ENCOUNTER 2025-05-28 15:31 | Outpatient (AMB) | payer OTHER, SELFPAY ==
--- NOTE | 2025-05-28 15:43 | A.OFFPC_ITS ---
Vital Signs 05/28/25 15:47 Height 5 ft 2 in Weight 104 lb 4 oz BMI 19.1 BP 130/78 Blood Pressure Location Lt brachial Pulse 76 Pulse Source Pulse Oximeter Pulse Oximetry (%) 98 Oxygen Delivery Method Room Air Intake Visit Reasons: bp,copd Ironer Machine Required: No Accompanied by: Self / Same As Patient Allergies succinylcholine (SUCCINYLCHOLINE) Allergy (Severe, Verified 05/28/25 15:58) EXCESSIVE PARALYSIS tramadol Allergy (Intermediate, Verified 05/28/25 15:58) diarrhea, upset stomach cat dander (CATS) Allergy (Mild, Verified 05/28/25 15:58) UNKNOWN dog dander (DOGS) Allergy (Mild, Verified 05/28/25 15:58) UNKNOWN pollen extracts (POLLEN) Allergy (Mild, Verified 05/28/25 15:58) UNKNOWN gabapentin Adverse Reaction (Mild, Verified 05/28/25 15:58) Nausea and Vomiting DUST Allergy (Mild, Uncoded 05/28/25 15:58) UNKNOWN Medication List - Last Reconciled 05/28/25 by Fany Meza MD alprazolam 0.25 mg PO BID buprenorphine-naloxone 2-0.5 mg (Suboxone) 1 film buccal DAILY 30 days buspirone 15 mg PO BID cane As directed clobetasol 0.05% 1 appl topical BID clobetasol 0.05% 1 appl topical BID 1 week flecainide 100 mg PO Q12H fluticasone furoate-vilanterol 100-25 mcg/dose (Breo Ellipta) 1 inh inhalation DAILY hydroxyzine HCl 25 mg PO ONCE ipratropium bromide 17 mcg/actuation 2 puffs inhalation TID 30 days ketoconazole 2% 1 appl topical DAILY lisinopril 20 mg PO DAILY 90 days methylprednisolone PO PER PKG DIR for 6 days mupirocin calcium 2% 1 appl topical BID 2 weeks oxycodone-acetaminophen 2.5-325 mg (Percocet) 1 tab PO TID PRN propranolol ER 60 mg PO DAILY 90 days rivaroxaban (Xarelto) 20 mg PO DAILY Tobacco use date assessed: 05/28/25 Fall risk assessment: No Falls in past year Last assessed Fall Risk: 05/28/25 Dental Screening Dental Screen Date: 05/28/25 Did you have a dental visit in the last 12 months?: No Did you have a dental problem in the last 6 months where you did not have access to dental care?: No Was dental information given to patient?: No HPI HPI Comments History of Present Illness Details The patient is a 79-year-old female presenting with management of Chronic Obstructive Pulmonary Disease (COPD). She reports difficulty breathing, particularly exacerbated by heat and humidity, and acknowledges the need to quit smoking, currently smoking approximately eight cigarettes per day. She has attempted smoking cessation in the past using inhalers but has not tried Chantix due to concerns about side effects. She has opiate use disorder, mild depression and alcohol use disorder. 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 She is currently under the care of Dr. Enriquez, who has recommended melanie rios a specialist at [facility] for further management. The patient has a history of atrial fibrillation, managed with flecainide and Xarelto. She reports episodes of dyspnea, particularly during periods of extreme heat, and is scheduled to see Dr. Christine for cardiac evaluation. The patient reports an inguinal hernia that is increasing in size and causing discomfort. She expresses fear of surgical intervention but acknowledges the need for an ultrasound to assess the hernia's status. The patient has a history of hypertension, currently managed with lisinopril and propranolol. [facility] Medical History (Updated 05/28/25 @ 16:12 by Fany Meza MD) Rheumatoid arthritis Upper respiratory tract infection Skin lesion of face Skin abscess Hospital discharge follow-up Laceration of elbow, right Contusion of elbow, right Right knee skin infection Knee pain Pacemaker Sinus pause Opioid use disorder COPD with acute exacerbation COPD (chronic obstructive pulmonary disease) Left knee pain Paroxysmal atrial fibrillation Knee pain Abdominal pain Smoker Neurodermatitis COPD exacerbation Scalp abscess Vaginal discharge Skin lesion Osteoarthritis of thoracic spine Anxiety Surgical History History of basal cell carcinoma (BCC) excision Mammogram declined History of bilateral cataract extraction History of ectopic History of hip replacement History of nasal surgery Family History Father No problems noted. Mother No problems noted. Social History (Updated 05/28/25 @ 16:06 by Fany Meza MD) Household Members: None Housing: House Do you presently have visiting nurse or other home services: No Alcohol intake: former Patient Tobacco Use Status: Current everyday Tobacco user Tobacco use type: Cigarette Cigarettes Per Day: 8 Years Smoked: 50 e-Cigarette/Vaping Use: Never Used Second Hand Smoke Exposure: Yes Advance Directives Date on File: 12/06/24 service: No Current occupational status: retired and disabled Cognitive needs: Yes Hearing needs: No Vision needs: No Questionnaire Thrive Questionnaire Date Thrive assessed: 05/28/25 GORGE-7 AMB Questionnaire GORGE-7 Date GORGE - 7 assessed: 05/28/25 Source: Developed by Drs. Dane Lindsey, Lynn Peña, Jose Vivas and colleagues, with an educational afsaneh from [employer]. Review of Systems Const All systems reviewed & are unremarkable except as noted in HPI and below Card Denies chest pain at rest, Denies chest pain with activity, Denies edema, Denies irregular heart rhythm, Denies claudication, Denies dyspnea, Denies dyspnea on exertion, Denies orthopnea, Denies paroxysmal nocturnal dyspnea and Denies slow heart rate Resp Denies cough, Denies dyspnea and Denies dyspnea on exertion GI Denies abdominal pain, Denies change in bowel habits, Denies excessive flatus, Denies nausea and Denies vomiting Physical exam (Primary Care) Vital Signs: Last Vital Signs Pulse 76 05/28/25 15:47 BP 130/78 05/28/25 15:47 Pulse Ox 98 05/28/25 15:47 Oxygen Delivery Method Room Air 05/28/25 15:47 BMI result Body Mass Index 19.1 Tobacco/Smoking Status: Tobacco use Status Tobacco use date assessed 05/28/25 05/28/25 15:53 Patient Tobacco Use Status Current someday Tobacco 05/28/25 15:53 Tobacco use type Cigarette 05/28/25 15:53 e-Cigarette/Vaping Use Never Used 05/28/25 15:53 Are you ready to quit: No Tobacco cessation counseling provided: Yes Items discussed: Nicotine replacement and QuitWorks Relapse Prevention: discussed the importance of a supportive environment, weight gain after smoking is common and discussed dietary, exercise and/or lifestyle changes Number of minutes spent counselin CPT code: 26349 - 4-10 Minutes Thrive Assessment: Date of Thrive Assessment Date Thrive assessed 05/28/25 05/28/25 15:53 Resp Effort & Inspection: normal respiratory effort Auscultation: clear to auscultation bilaterally Cardio Jugular venous distension: no JVD Rate: regular rate Rhythm: regular rhythm Heart sounds: S1 normal heart sound present and S2 normal heart sound present Extrem General: Yes full ROM Coding Level of Care Code Est Pt Level 4 (06289) Complex EM visit Add On G2211 Diagnoses Mild recurrent major depression F33.0 Anxiety F41.9 Alcohol use disorder, moderate, dependence F10.20 Opioid use disorder, moderate, in early remission, on maintenance therapy, depe ndence F11.21 Essential hypertension I10 Paroxysmal atrial fibrillation I48.0 Chronic obstructive pulmonary disease, unspecified COPD type J44.9 COPD type: unspecified COPD Skin lesion L98.9 Additional Codes Vital Signs *Quality* - CPT code: 81722 - 4-10 Minutes ([id number]) Time Spent (min) 25 Assessment & Plan Assessment & Plan (1) Mild recurrent major depression: Code(s): F33.0 - Major depressive disorder, recurrent, mild Category: Medical (2) Anxiety: Code(s): F41.9 - Anxiety disorder, unspecified Category: Medical (3) Alcohol use disorder, moderate, dependence: Comment: She has been not drinking alcohol. Code(s): F10.20 - Alcohol dependence, uncomplicated Category: Medical (4) Opioid use disorder, moderate, in early remission, on maintenance therapy, dependence: Comment: She is doing well with one Suboxone daily but was last filled on 12/25. She gets alprazolam .25 bid from [facility]to psychiatrist and wants more and was told to ask her. Code(s): F11.21 - Opioid dependence, in remission Category: Medical (5) Essential hypertension: Code(s): I10 - Essential (primary) hypertension Category: Medical (6) Paroxysmal atrial fibrillation: Comment: Status post ablation. Being maintained on antiarrhythmic with flecainide and has done very well with rhythm control approach Code(s): I48.0 - Paroxysmal atrial fibrillation Category: Medical (7) COPD (chronic obstructive pulmonary disease): Comment: MODERATELY SEVERE CHRONIC OBSTRUCTIVE PULMONARY DISEASE IS DEFINITELY RELATED TO HER LONG-TIME SMOKING. Code(s): J44.9 - Chronic obstructive pulmonary disease, unspecified Category: Medical Qualifiers: COPD type: unspecified COPD Qualified Code(s): J44.9 - Chronic obstructive pulmonary disease, unspecified (8) Skin lesion: Code(s): L98.9 - Disorder of the skin and subcutaneous tissue, unspecified Category: Medical Plan The patient will be referred to a specialist at [facility] for further management of her neurodermatitis, as recommended by Dr. Enriquez. An ultrasound will be ordered to assess the status of the inguinal hernia, and based on the results, surgical intervention may be considered. For her COPD, the patient will continue with her current inhaler therapy, and smoking cessation support will be offered if she is unable to quit on her own by the next visit. She will also continue her current medications for atrial fibrillation and hypertension, with follow-up scheduled with Dr. Christine for cardiac evaluation. Patient was informed and verbally consented to the use of an ambient scribe for clinic note documentation during this visit. Orders: Orders US abdomen limited Today K40.90 - Unilateral inguinal hernia, without obstruction or gangrene, not specified as recurrent Referrals Dermatology Referral L98.9 - Disorder of the skin and subcutaneous tissue, unspecified
[2025-05-28 15:47] VITALS: BP 130/78; PULSE 76; O2SAT 98; BMI 19.1
--- OUTSIDE RECORDS SUMMARY | 2025-05-28 16:18 | XMS_ITS | Encounter Summary ---
Author Organization [facility] Address [address] [place] [id number] Phone Care Team Providers Care Fork Truck Operator Name Role Phone Pcp, Unknown Primary Care Provider Unavailabl e Encounter Details Date Type Department Care Team (Late st Contact Info) Description 08/20/2022 Telephone [facility] [address] [address] Myriam [email or web address] Social History Tobacco Use Types Packs/Day Years [...] on filedocumented in this encounter Care Teams Fork Truck Operator Relationship Specialty Start Date End Date Pcp, Unknown PCP - General 06/22/22 documented as of this encounter Additional Source Comments The information contained in this document represents components of the legal health record. It is not the complete legal health record.[facility]
== END 2025-05-28 16:16 | disposition home or self-care (01) ==
LOC: HO.HMCH 15:31
PROVIDERS: PCP Internal Medicine; Visit Provider Internal Medicine
DX: F33.0 Major depressive disorder, recurrent, mild (principal); F41.9 Anxiety disorder, unspecified; F10.20 Alcohol dependence, uncomplicated; F11.21 Opioid dependence, in remission; I10 Essential (primary) hypertension; I48.0 Paroxysmal atrial fibrillation; J44.9 Chronic obstructive pulmonary disease, unspecified; L98.9 Disorder of the skin and subcutaneous tissue, unspecified

== ENCOUNTER → 2025-05-28 15:31 | Outpatient (BNVA) | payer OTHER, SELFPAY | PROVIDERS: PCP Internal Medicine; Visit Provider Internal Medicine | DX: F33.0 Major depressive disorder, recurrent, mild (principal); J44.9 Chronic obstructive pulmonary disease, unspecified; F41.9 Anxiety disorder, unspecified; I48.91 Unspecified atrial fibrillation; K40.90 Unilateral inguinal hernia, without obstruction or gangrene, not specified as recurrent; I10 Essential (primary) hypertension; I48.0 Paroxysmal atrial fibrillation; L28.0 Lichen simplex chronicus; F10.20 Alcohol dependence, uncomplicated; F11.21 Opioid dependence, in remission; F17.210 Nicotine dependence, cigarettes, uncomplicated; Z79.01 Long term (current) use of anticoagulants | CPT/HCPCS: 96127; 99212 ==

== ENCOUNTER 2025-06-10 13:45 | Outpatient (AMB) | payer OTHER, SELFPAY ==
[2025-06-10 14:13] VITALS: BP 132/74; PULSE 78; O2SAT 94; BMI 19.6
--- NOTE | 2025-06-10 14:13 | MHC.OFFVIS ---
Vital Signs 06/10/25 14:13 Height 5 ft 2 in Weight 107 lb BMI 19.6 BP 132/74 Pulse 78 Pulse Oximetry (%) 94 Intake Visit Reasons: MAT Allergies succinylcholine (SUCCINYLCHOLINE) Allergy (Severe, Verified 06/10/25 14:14) EXCESSIVE PARALYSIS tramadol Allergy (Intermediate, Verified 06/10/25 14:14) diarrhea, upset stomach cat dander (CATS) Allergy (Mild, Verified 06/10/25 14:14) UNKNOWN dog dander (DOGS) Allergy (Mild, Verified 06/10/25 14:14) UNKNOWN pollen extracts (POLLEN) Allergy (Mild, Verified 06/10/25 14:14) UNKNOWN gabapentin Adverse Reaction (Mild, Verified 06/10/25 14:14) Nausea and Vomiting DUST Allergy (Mild, Uncoded 06/10/25 14:14) UNKNOWN HPI HPI MAT: Details: She takes medication as directed. She has no complaints. [facility] Medical History Rheumatoid arthritis Upper respiratory tract infection Skin lesion of face Skin abscess Hospital discharge follow-up Laceration of elbow, right Contusion of elbow, right Right knee skin infection Knee pain Pacemaker Sinus pause Opioid use disorder COPD with acute exacerbation COPD (chronic obstructive pulmonary disease) Left knee pain Paroxysmal atrial fibrillation Knee pain Abdominal pain Smoker Neurodermatitis COPD exacerbation Scalp abscess Vaginal discharge Skin lesion Osteoarthritis of thoracic spine Anxiety Surgical History History of basal cell carcinoma (BCC) excision Mammogram declined History of bilateral cataract extraction History of ectopic History of hip replacement History of nasal surgery Family History Father No problems noted. Mother No problems noted. Social History Household Members: None Housing: House Do you presently have visiting nurse or other home services: No Alcohol intake: former Patient Tobacco Use Status: Current everyday Tobacco user Tobacco use type: Cigarette Cigarettes Per Day: 8 Years Smoked: 50 e-Cigarette/Vaping Use: Never Used Second Hand Smoke Exposure: Yes Advance Directives Date on File: 12/06/24 service: No Current occupational status: retired and disabled Cognitive needs: Yes Hearing needs: No Vision needs: No Review of Systems Const All systems reviewed & are unremarkable except as noted in HPI and below Physical Exam Vital Signs: Last Vital Signs Pulse 78 06/10/25 14:13 BP 132/74 06/10/25 14:13 Pulse Ox 94 06/10/25 14:13 BMI result Body Mass Index 19.6 Const General: cooperative Assessment & Plan Assessment & Plan (1) Opioid use disorder, moderate, in early remission, on maintenance therapy, dependence: Comment: She is doing well and has no complaints Code(s): F11.21 - Opioid dependence, in remission Category: Medical Plan: See as scheduled. Medication written for. Medications: New buprenorphine-naloxone 2-0.5 mg (Suboxone) place 1 strip/tab under (each) side of tongue 1 film sublingual DAILY 30 ea 0RF 30 days Coding Level of Care Code Est Pt Level 3 (42085) Diagnoses Opioid use disorder, moderate, in early remission, on maintenance therapy, dependence F11.21
--- OUTSIDE RECORDS SUMMARY | 2025-06-10 15:04 | XMS_ITS | Encounter Summary ---
Author Organization [facility] Address [address] [place] [phone] Phone Care Team Providers Care Field Reporter Name Role Phone Pcp, Unknown Primary Care Provider Unavailabl e Encounter Details Date Type Department Care Team (Late st Contact Info) Description 08/20/[address] [facility] [address] [address] Myriam [email or web address] Social History Tobacco Use Types Packs/Day Years [...] on filedocumented in this encounter Care Teams Field Reporter Relationship Specialty Start Date End Date Pcp, Unknown PCP - General 06/22/22 documented as of this encounter Additional Source Comments The information contained in this document represents components of the legal health record. It is not the complete legal health record.[facility]
--- OUTSIDE RECORDS SUMMARY | 2025-06-10 15:04 | XMS_ITS | Clinical Summary ---
Author Organization [facility] Address [address] [address] Phone Care Team Providers Care Conveyor Belt Operator Name Role Phone Pcp, Unknown Primary Care Provider Unavailabl e Allergies Active Allergy Reactions Criticality Noted Date Comments Succinylcholine Chloride Other (See Comments) 05/14/2019 Couldn't wake up Medications betamethasone valerate 0.1 % lotion Apply 1 application topically 2 (two) times a day. scalp Active oxyCODONE 15 MG immediate release tablet Take 15 mg by mouth every 8 (eight) hours as needed for pain (specific location in comments). Partial fill ok Active hydrocortisone 2.5 % ointment Apply 1 application topically 2 (two) times a day. face Active ALPRAZolam (XANAX) 0.5 MG tablet Take 0.5 mg by mouth 2 (two) times a day as needed. Active mupirocin (BACTROBAN) 2 % ointment Apply 1 application topically 2 (two) times a day as needed. Active dilTIAZem (CARTIA XT) 180 MG 24 hr capsule Take 180 mg by mouth daily. Active rivaroxaban (XARELTO) 20 mg Tab Take 20 mg by mouth daily. Active escitalopram oxalate (LEXAPRO) 10 MG tabletIndicatio ns:ordered but not taking allergic Take 10 mg by mouth daily. Indications: ordered but not taking allergic Active flecainide (TAMBOCOR) 100 MG tablet Take 100 mg by mouth 2 (two) times a day. Active nicotine (NICODERM CQ) 14 mg/[address] 1 patch onto the skin daily. Active traMADol (ULTRAM) 50 mg tablet Take 50 mg by mouth every 12 (twelve) hours as needed for pain (specific location in comments). Active cetirizine (ZYRTEC) 10 MG tablet Take 10 mg by mouth daily. Active oxyCODONE 5 MG immediate release tablet Take 10 mg by mouth every 12 (twelve) hours as needed for moderate pain. Active clobetasol (TEMOVATE) 0.05 % ointment Apply topically 2 (two) times a day. Apply to affected areas twice daily for up to 2-3 weeks, then take at least a 2 week break 60 g 1 2 Active lidocaine 5 % ointment APPLY TOPICALLY NEEDED 35.44 g 2 Active ketoconazole (NIZORAL) 2 % shampoo Apply topically 2 (two) times a week. Apply to scalp twice per week. Leave on 5 minutes. Then rinse. 180 mL 11 3 Active clobetasol (TEMOVATE) 0.05 % external solution Apply topically to affected areas of scalp once or twice daily 50 mL 2 3 Active Active Problems Problem Noted Date Diagnosed Date Osteoarthritis 05/16/2019 Other chronic pain 05/16/2019 Osteoporosis 05/14/2019 Anxiety 05/14/2019 Neurodermatitis 05/14/2019 Scoliosis 05/14/2019 Tobacco abuse 05/14/2019 Chronic obstructive pulmonary disease 05/14/2019 History of hepatitis C 05/14/2019 Atrial fibrillation 05/14/2019 History of MRSA infection 05/14/2019 Immunizations Immunization Administration Dates Next Due Hepatitis B Adult 01/18/2017 INFLUENZA, SPLIT VIRUS, TRIVALENT W/ PRESERVATIV E IM 09/10/2011,07/31/2010 Social History Tobacco Use Types Packs/Day Years Used Date Smoking Tobacco: Every Day Cigarettes 0.3 59 Smokeless Tobacco: Never Comments:8 cigarettes daily, vape Alcohol Use Standard Drinks/Week Comments Not Currently 0 (1 standard drink = 0.6 oz pur e alcohol) Education Answer Date Recorded Are you interested in more education? Not on kendall e 02/11/2023 Are you concerned about learning? Not on file 02/11/2023 No 02/11/2023 No 02/11/2023 Digital Access Answer Date Recorded No 03/12/2023 No 03/12/2023 No 03/12/2023 Reliable internet access at home? Not on file 03/12/2023 Device with a working camera? Not on file Comments Unknown Sex and Gender Information Value Date Recorded Sex Assigned at Not on file Legal Sex Female 4:09 PM EDT Gender Identity Not on file Sexual Orientation Not on file Last Filed Vital Signs Vital Sign Reading Time Taken Comments Blood Pressure 110/68 05/14/2019 10:15 AM EDT Pulse 73 05/14/2019 10:15 AM EDT Temperature - - Respiratory Rate 16 05/14/2019 10:15 AM EDT Oxygen Saturation 95% 05/14/2019 10:15 AM EDT Inhaled Oxygen Concentration - - Weight 65.6 kg (144 lb 9.6 oz) 05/14/2019 10:15 AM EDT Height 161.3 cm (5' 3.5 ) 05/14/2019 10:15 AM ED T Body Mass Index 25.21 05/14/2019 10:15 AM EDT Plan of Treatment Health Maintenance Due Date Last Done Comments Adult Td,Tdap Booster 1946 CREATININE LEVEL 1946 LIPID PANEL 1946 DEPRESSION SCREENING 1958 SMOKING Hx and SMOKELESS TOBACCO SCREENING 1959 HEPATITIS A VACCINES (1 of 2 - Risk 2-dose series) 1965 ZOSTER VACCINES (1 of 2) 1996 OSTEOPOROSIS SCREENING INITI AL (ONE-TIME) 2011 RSV VACCINE (1 - 1-dose 75+ series) 2021 PNEUMOCOCCAL VACCINES (50+ years) (2 of 2 - PCV) 05/21/2022 05/21/2021 COVID-19 VACCINE (4 - 2023-2 5 season) 2024 08/11/2021, 11/26/2020, 11/05/2020 HIB VACCINES Aged Out No longer eligi ble based on patient's age to complete this topic MENINGOCOCCAL VACCINES (ACWY) Aged Out No longer eligible based on patient's age to complete this topic MENINGOCOCCAL VACCINES (B) Aged Out N o longer eligible based on patient's age to complete this topic Medical Devices Not on file Insurance MEDICARE PART A & B [facility] MEDICARE REPLACEMENT [place] [id number] MEDICARE PART A & B [facility] MED[facility]ARE REPLACEMENT [place] [id number] MEDICARE PART A & B MEDICARE REPLACEMENT [place] [id number] MEDICARE PART A & B [id number] [place] [address] MEDICARE REPLACEMENT MEDICARE PART A & B [id number] [place] [address] MEDICARE REPLACEMENT [place] [id number] MEDICARE PART A & B [facility] SNP MEDICARE REPLACEMENT MEDICARE PART A & B [facility] SNP MEDICARE REPLACEMENT MEDICARE PART A & B [facility] SNP MEDICARE REPLACEMENT MEDICARE PART A & B [facility] MEDICARE REPLACEMENT Care Teams Conveyor Belt Operator Relationship Specialty Start Date End Date Pcp, Unknown PCP - General 06/22/22 Additional Source Comments The information contained in this document represents components of the legal health record. It is not the complete legal health record.[facility]
== END 2025-06-10 14:55 | disposition home or self-care (01) ==
LOC: HO.HCC 13:45
PROVIDERS: PCP Internal Medicine; Visit Provider Internal Medicine
DX: F11.21 Opioid dependence, in remission (principal)
CPT/HCPCS: 99213

== ENCOUNTER → 2025-06-10 13:45 | Outpatient (BNVA) | payer OTHER, SELFPAY | PROVIDERS: PCP Internal Medicine; Visit Provider Internal Medicine | DX: F11.21 Opioid dependence, in remission (principal) | CPT/HCPCS: 99212 ==

== ENCOUNTER 2025-06-19 10:44 | Outpatient (AMB) | payer OTHER, SELFPAY ==
--- NOTE | 2025-06-19 10:48 | MHC.OFFVIS ---
Vital Signs 06/19/25 10:53 Height 5 ft 2 in Weight 105 lb 13.15 oz BMI 19.4 BP 120/74 Blood Pressure Location Lt brachial Position Sitting Pulse 67 Intake Visit Reasons: 6 month f/up rs from 04/16/25 Intake Note: 6 month follow-up with ekg and Medtronic check c/o some sob Six Pack Loader Operator Required: No Allergies succinylcholine (SUCCINYLCHOLINE) Allergy (Severe, Verified 06/10/25 14:14) EXCESSIVE PARALYSIS tramadol Allergy (Intermediate, Verified 06/10/25 14:14) diarrhea, upset stomach cat dander (CATS) Allergy (Mild, Verified 06/10/25 14:14) UNKNOWN dog dander (DOGS) Allergy (Mild, Verified 06/10/25 14:14) UNKNOWN pollen extracts (POLLEN) Allergy (Mild, Verified 06/10/25 14:14) UNKNOWN gabapentin Adverse Reaction (Mild, Verified 06/10/25 14:14) Nausea and Vomiting DUST Allergy (Mild, Uncoded 06/10/25 14:14) UNKNOWN Medication List - Last Reconciled 06/19/25 by Wayne Allen MD alprazolam 0.25 mg PO BID buprenorphine-naloxone 2-0.5 mg (Suboxone) 1 film buccal DAILY 30 days buspirone 15 mg PO BID cane As directed clobetasol 0.05% 1 appl topical BID clobetasol 0.05% 1 appl topical BID 1 week flecainide 100 mg PO Q12H fluticasone furoate-vilanterol 100-25 mcg/dose (Breo Ellipta) 1 inh inhalation DAILY hydroxyzine HCl 25 mg PO ONCE ipratropium bromide 17 mcg/actuation 2 puffs inhalation TID 30 days ketoconazole 2% 1 appl topical DAILY lisinopril 20 mg PO DAILY 90 days mupirocin calcium 2% 1 appl topical BID 2 weeks oxycodone-acetaminophen 2.5-325 mg (Percocet) 1 tab PO TID PRN propranolol ER 60 mg PO DAILY 90 days rivaroxaban (Xarelto) 20 mg PO DAILY HPI Comments Details: Yamileth comes for follow-up for pacer check and atrial fibrillation. She continues to have exertional shortness of breath but sometimes she says she gets his shortness of breath at rest especially when she is very stressed out and also associated with mucus plugging. She says she has recently started taking mucolytics and has a helped her shortness of breath. Denies any orthopnea, PND, leg edema. She denies any prolonged palpitation irregular heartbeat. No lightheadedness, syncope. No exertional chest pain. Takes all her medications. Currently on full oral anticoagulation. She is worried about bleeding issues but has not had any major bleeding episodes. [facility] Medical History Rheumatoid arthritis Upper respiratory tract infection Skin lesion of face Skin abscess Hospital discharge follow-up Laceration of elbow, right Contusion of elbow, right Right knee skin infection Knee pain Pacemaker Sinus pause Opioid use disorder COPD with acute exacerbation COPD (chronic obstructive pulmonary disease) Left knee pain Paroxysmal atrial fibrillation Knee pain Abdominal pain Smoker Neurodermatitis COPD exacerbation Scalp abscess Vaginal discharge Skin lesion Osteoarthritis of thoracic spine Anxiety Surgical History History of basal cell carcinoma (BCC) excision Mammogram declined History of bilateral cataract extraction History of ectopic History of hip replacement History of nasal surgery Family History Father No problems noted. Mother No problems noted. Social History Household Members: None Housing: House Do you presently have visiting nurse or other home services: No Alcohol intake: former Patient Tobacco Use Status: Current everyday Tobacco user Tobacco use type: Cigarette Cigarettes Per Day: 8 Years Smoked: 50 e-Cigarette/Vaping Use: Never Used Second Hand Smoke Exposure: Yes Advance Directives Date on File: 12/06/24 service: No Current occupational status: retired and disabled Cognitive needs: Yes Hearing needs: No Vision needs: No Review of Systems Const Denies chills, Denies fatigue, Denies fever(s), Denies frequent falls, Denies weakness, Denies weight gain and Denies weight loss ENT Denies dizziness Card Denies chest pain, Denies leg edema, Denies lightheadedness, Denies palpitations, Reports dyspnea, Denies dyspnea on exertion, Denies orthopnea and Denies other (loss of consciousness) Resp Denies cough, Reports dyspnea and Denies dyspnea on exertion GI Denies hematochezia and Denies change in stool character Musc Denies abnormal gait, Denies muscle weakness, Denies numbness, Denies radiating pain into limb and Denies tingling Neuro Denies abnormal gait, Denies dizziness, Denies frequent falls, Denies numbness, Denies tingling and Denies weakness Endo Denies fatigue and Denies palpitations Physical Exam Vital Signs: Last Vital Signs Pulse 67 06/19/25 10:53 BP 120/74 06/19/25 10:53 BMI result Body Mass Index 19.4 Const General: cooperative, comfortable and no acute distress Orientation/consciousness: patient oriented x3 Neck Neck: Yes normal visual inspection and Yes no JVD Resp Effort & Inspection: normal respiratory effort Auscultation: clear to auscultation bilaterally, no crackles, no rales, no rhonchi, no wheezes and diminished lung sounds Cardio Jugular venous distension: no JVD Rate: regular rate Rhythm: regular rhythm Heart sounds: S1 normal heart sound present, S2 normal heart sound present, no murmurs and no rubs Neuro General: patient oriented x3 Extrem General: Yes normal to inspection and No no pedal edema Psych Appearance: grossly normal Mental Status: mental status grossly normal Speech and movement: Normal speech and movement present Office Procedures Cardiac Device Check Cardiac Device Check Details: Dual-chamber Medtronic pacemaker in place. Programmed in MVP mode with rate response. Atrial pacing 71% of the time. Patient is very active about 5 hours a day. Atrial ventricular pacing lead impedance is stable. Atrial ventricular sensing is excellent. Atrial ventricular capture thresholds are adequate and reprogrammed to provide adequate safety as well as enhance battery life. Battery life is at about 10.7 years. No episodes of atrial fibrillation noted [id number] Cardiac Device Check, pacemaker dual lead Procedure code (CPT) selection complete EKG Details: EKGs shows normal sinus rhythm with possible left atrial enlargement with ST sagging suggestive of repolarization abnormality 76362-[id number], Complete Assessment & Plan Assessment & Plan (1) Paroxysmal atrial fibrillation: Comment: Status post ablation. Being maintained on antiarrhythmic with flecainide and has done very well with rhythm control approach Code(s): I48.0 - Paroxysmal atrial fibrillation Category: Medical Plan: Paroxysmal atrial fibrillation doing extremely well with rhythm control approach. Currently on flecainide as well as propranolol therapy. Needs AV andrés blocking agent should be continued. Has done very well with rhythm control approach will continue pursue the same. Has tolerated flecainide very well. The same. Importance full oral anticoagulation was discussed. Continue Xarelto. Semi annual renal function test is recommended. (2) Pacemaker: Comment: Medtronic dual-chamber pacemaker placement 12/07/2021 Code(s): Z95.0 - Presence of cardiac pacemaker Category: Medical Plan: Cardiac pacemaker in-situ for sick sinus syndrome. Pacing about 72% time in the atrium. Working well. Will follow remotely. Follow up in the clinic in 6 months. (3) Cardiomyopathy: Code(s): I42.9 - Cardiomyopathy, unspecified Category: Medical Qualifiers: Cardiomyopathy type: unspecified Qualified Code(s): I42.9 - Cardiomyopathy, unspecified Plan: Prior history of cardiomyopathy in setting of persistent atrial fibrillation. Will continue with rhythm control approach. Has normalized LV ejection fraction. Continue aggressive blood pressure control which is currently well optimized. Continue lisinopril and propranolol therapy. Avoidance of alcohol use was discussed. Signs and symptoms of heart failure were discussed. Follow up in the clinic in 6 months time, sooner PRN. Thank you for allowing me to partake in her care Orders: Orders Basic Metabolic Panel Today I48.0 - Paroxysmal atrial fibrillation Coding Level of Care Code Est Pt Level 4 (56234) Complex EM visit Add On G2211 Diagnoses Paroxysmal atrial fibrillation I48.0 Pacemaker Z95.0 Cardiomyopathy, unspecified type I42.9 Cardiomyopathy type: unspecified CPT Codes Cardiac Device Check - Cardiac Device 2: [id number] Cardiac Device Check, pacemaker dual lead ([id number]) EKG - CPT: 57660-[id number], Complete ([id number])
[2025-06-19 10:53] VITALS: BP 120/74; PULSE 67; BMI 19.4
--- OUTSIDE RECORDS SUMMARY | 2025-06-19 12:26 | XMS_ITS | Clinical Summary ---
Author Organization [facility] Address [address] [address] Phone Care Team Providers Care Buttonholer Name Role Phone Pcp, Unknown Primary Care [...] (2 of 2 - PCV) 05/21/2022 05/21/2021 INFLUENZA VACCINE (#1) 2025 1, 07/31/2010 COVID-19 VACCINE (4 - 2024-2 6 season) 2025 08/11/2021, 11/26/2020, 11/05/2020 HIB VACCINES Aged Out No longer eligi ble based on patient's age to complete this topic MENINGOCOCCAL VACCINES (ACWY) Aged Out No longer eligible based on patient's age to complete this topic MENINGOCOCCAL VACCINES (B) Aged Out N o longer eligible based on patient's age to complete this topic Medical Devices Not on file Insurance MEDICARE PART A & B [facility] SNP MEDICARE REPLACEMENT MEDICARE PART A & B [facility] SNP MEDICARE REPLACEMENT MEDICARE PART A & B [facility] MEDICARE REPLACEMENT [place] [id number] MEDICARE PART A & B [facility] MEDICARE REPLACEMENT MEDICARE PART A & B [facility] MEDICARE REPLACEMENT [place] [id number] MEDICARE PART A & B [facility] MEDICARE REPLACEMENT MEDICARE PART A & B [facility] MEDICARE REPLACEMENT MEDICARE PART A & B [facility] SNP MEDICARE REPLACEMENT MEDICARE PART A & B [facility] MEDICARE REPLACEMENT Care Teams Buttonholer Relationship Specialty Start Date End Date Pcp, Unknown PCP - General 06/22/22 Additional Source Comments The information contained in this document represents components of the legal health record. It is not the complete legal health record.[facility]
--- OUTSIDE RECORDS SUMMARY | 2025-06-19 12:26 | XMS_ITS | Encounter Summary ---
Author Organization [facility] Address [address] [facility] [address] [place] [address] Phone Care Team Providers Care Extension Worker Name Role Phone Pcp, Unknown Primary Care Provider Unavailabl e Encounter Details Date Type Department Care Team (Late st Contact Info) Description 08/20/2022 Telephone [facility] [address] [address] Myriam [email or web address] Social History Tobacco Use Types Packs/Day Years [...] on filedocumented in this encounter Care Teams Extension Worker Relationship Specialty Start Date End Date Pcp, Unknown PCP - General 06/22/22 documented as of this encounter Additional Source Comments The information contained in this document represents components of the legal health record. It is not the complete legal health record.[facility]
== END 2025-06-19 11:22 | disposition home or self-care (01) ==
LOC: HO.HCS 10:45
PROVIDERS: PCP Internal Medicine; Visit Provider Internal Medicine Cardiovascular Disease
DX: I48.0 Paroxysmal atrial fibrillation (principal); Z95.0 Presence of cardiac pacemaker; I42.9 Cardiomyopathy, unspecified
CPT/HCPCS: 93010; 93280; 99214; G2211

== ENCOUNTER 2025-06-19 10:44 | Outpatient (REF) | payer OTHER, SELFPAY ==
[2025-06-19 12:38] LABS: Anion Gap 10 (12-20); Blood Urea Nitrogen 17 mg/dL (9-16); Calcium 9.2 mg/dL (8.4-10.2); Carbon Dioxide 31 mmol/L (22-29); Chloride 105 mmol/L (96-108); Estimated Glomerular Filt Rate > 60; Potassium 4.2 mmol/L (3.3-5.1); Sodium 142 mmol/L (135-145)
== END 2025-06-19 10:45 | disposition home or self-care (01) ==
LOC: HO.LAB 10:44
PROVIDERS: PCP Internal Medicine; Visit Provider Internal Medicine Cardiovascular Disease
DX: I48.0 Paroxysmal atrial fibrillation (principal); I42.9 Cardiomyopathy, unspecified; Z95.0 Presence of cardiac pacemaker; Z79.899 Other long term (current) drug therapy
CPT/HCPCS: 36415; 80048; 93005; 93280; 99212

== ENCOUNTER 2025-06-20 13:28 | Outpatient (AMB) | payer OTHER, SELFPAY ==
--- NOTE | 2025-06-20 13:36 | A.OFFVIS_ITS ---
Vital Signs 06/20/25 13:44 Height 5 ft 2 in Weight 107 lb BMI 19.6 BP 167/74 H Blood Pressure Location Rt brachial Position Sitting Pulse 87 Intake Visit Reasons: Re-discuss hernia surgery Intake Note: Patient scheduled today's visit to re- discuss hernia surgery. Pacemaker for 2yrs. Patient c/o pain on back. Has a lesion on back that keeps opening up. States new blood pressure medication that is working. 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: No Accompanied by: Self / Same As Patient Allergies succinylcholine (SUCCINYLCHOLINE) Allergy (Severe, Verified 06/20/25 13:42) EXCESSIVE PARALYSIS tramadol Allergy (Intermediate, Verified 06/20/25 13:42) diarrhea, upset stomach cat dander (CATS) Allergy (Mild, Verified 06/20/25 13:42) UNKNOWN dog dander (DOGS) Allergy (Mild, Verified 06/20/25 13:42) UNKNOWN pollen extracts (POLLEN) Allergy (Mild, Verified 06/20/25 13:42) UNKNOWN gabapentin Adverse Reaction (Mild, Verified 06/20/25 13:42) Nausea and Vomiting DUST Allergy (Mild, Uncoded 06/20/25 13:42) UNKNOWN Medication List - Last Reconciled 06/20/25 by Kemal Wheeler MD alprazolam 0.25 mg PO BID buprenorphine-naloxone 2-0.5 mg (Suboxone) 1 film buccal DAILY 30 days buspirone 15 mg PO BID cane As directed clobetasol 0.05% 1 appl topical BID clobetasol 0.05% 1 appl topical BID 1 week flecainide 100 mg PO Q12H fluticasone furoate-vilanterol 100-25 mcg/dose (Breo Ellipta) 1 inh inhalation DAILY hydroxyzine HCl 25 mg PO ONCE ipratropium bromide 17 mcg/actuation 2 puffs inhalation TID 30 days ketoconazole 2% 1 appl topical DAILY lisinopril 20 mg PO DAILY 90 days mupirocin calcium 2% 1 appl topical BID 2 weeks propranolol ER 60 mg PO DAILY 90 days rivaroxaban (Xarelto) 20 mg PO DAILY HPI HPI Re-discuss hernia surgery: Details: She says she is here to rediscuss her hernia surgery. She says she wants to more information about the hernia repaired. We have had multiple discussions about this in the past. She also says that she needs her pain medications for her back as well as for pain on the hernia. She denies GI complaints. [facility] Medical History Rheumatoid arthritis Upper respiratory tract infection Skin lesion of face Skin abscess Hospital discharge follow-up Laceration of elbow, right Contusion of elbow, right Right knee skin infection Knee pain Pacemaker Sinus pause Opioid use disorder COPD with acute exacerbation COPD (chronic obstructive pulmonary disease) Left knee pain Paroxysmal atrial fibrillation Knee pain Abdominal pain Smoker Neurodermatitis COPD exacerbation Scalp abscess Vaginal discharge Skin lesion Osteoarthritis of thoracic spine Anxiety Surgical History History of basal cell carcinoma (BCC) excision Mammogram declined History of bilateral cataract extraction History of ectopic History of hip replacement History of nasal surgery Family History Father No problems noted. Mother No problems noted. Social History Household Members: None Housing: House Do you presently have visiting nurse or other home services: No Alcohol intake: former Patient Tobacco Use Status: Current everyday Tobacco user Tobacco use type: Cigarette Cigarettes Per Day: 8 Years Smoked: 50 e-Cigarette/Vaping Use: Never Used Second Hand Smoke Exposure: Yes Advance Directives Date on File: 12/06/24 service: No Current occupational status: retired and disabled Cognitive needs: Yes Hearing needs: No Vision needs: No Review of Systems Const Denies chills and Denies fever(s) Card Denies chest pain at rest and Reports dyspnea on exertion Resp Reports dyspnea on exertion GI Denies hematochezia and Denies vomiting Musc Reports abnormal gait and Reports back pain Neuro Reports abnormal gait Physical Exam Vital Signs: Last Vital Signs Pulse 87 06/20/25 13:44 BP 167/74 H 06/20/25 13:44 BMI result Body Mass Index 19.6 Const Other: Seems to have difficulty with walking General: no acute distress Resp Effort & Inspection: normal respiratory effort Cardio Rate: regular rate GI Other: Nontender reducible left inguinal hernia Palpation (GI): Soft to palpation, not firm and no guarding Assessment & Plan Assessment & Plan (1) Left inguinal hernia: Code(s): K40.90 - Unilateral inguinal hernia, without obstruction or gangrene, not specified as recurrent Category: Medical Plan: She is well known to me for this left inguinal hernia which is reducible. She had been scheduled multiple times in the past and she never followed through Again I reviewed with the technique of this procedure as was the risks, benefits, and alternatives. She does have multiple medical issues increases her perioperative risks In the meantime, she says she will think about it and again asked for some refill for her pain medications. Coding Level of Care Code Est Pt Level 3 (03055) Diagnoses Left inguinal hernia K40.90
[2025-06-20 13:44] VITALS: BP 167/74; PULSE 87; BMI 19.6
--- OUTSIDE RECORDS SUMMARY | 2025-06-20 14:45 | XMS_ITS | Encounter Summary ---
Author Organization [facility] Address [address] [facility] [address] [place] [id number] Phone Care Team Providers Care Escrow Agent Name Role Phone Pcp, Unknown Primary Care Provider Unavailabl e Encounter Details Date Type Department Care Team (Late st Contact Info) Description 08/20/2022 Telephone [facility] [address] [address] Myriam [email or web address] Social History Tobacco Use Types Packs/Day Years [...] on filedocumented in this encounter Care Teams Escrow Agent Relationship Specialty Start Date End Date Pcp, Unknown PCP - General 06/22/22 documented as of this encounter Additional Source Comments The information contained in this document represents components of the legal health record. It is not the complete legal health record.[facility]
== END 2025-06-20 14:01 | disposition home or self-care (01) ==
LOC: HO.HGS 13:29
PROVIDERS: PCP Internal Medicine; Visit Provider Surgery
DX: K40.90 Unilateral inguinal hernia, without obstruction or gangrene, not specified as recurrent (principal)
CPT/HCPCS: 99213

== ENCOUNTER → 2025-06-20 13:28 | Outpatient (BNVA) | payer OTHER, SELFPAY | PROVIDERS: PCP Internal Medicine; Visit Provider Surgery | DX: K40.90 Unilateral inguinal hernia, without obstruction or gangrene, not specified as recurrent (principal) | CPT/HCPCS: 99212 ==

== ENCOUNTER → 2025-06-24 23:59 | Outpatient (BNV) | payer OTHER, SELFPAY ==
--- NOTE | 2025-06-27 14:54 | MHC.OFFVIS ---
Intake Visit Reasons: Remote Device Check- Medtronic Allergies succinylcholine (SUCCINYLCHOLINE) Allergy (Severe, Verified 06/20/25 13:42) EXCESSIVE PARALYSIS tramadol Allergy (Intermediate, Verified 06/20/25 13:42) diarrhea, upset stomach cat dander (CATS) Allergy (Mild, Verified 06/20/25 13:42) UNKNOWN dog dander (DOGS) Allergy (Mild, Verified 06/20/25 13:42) UNKNOWN pollen extracts (POLLEN) Allergy (Mild, Verified 06/20/25 13:42) UNKNOWN gabapentin Adverse Reaction (Mild, Verified 06/20/25 13:42) Nausea and Vomiting DUST Allergy (Mild, Uncoded 06/20/25 13:42) UNKNOWN [facility] Medical History Rheumatoid arthritis Upper respiratory tract infection Skin lesion of face Skin abscess Hospital discharge follow-up Laceration of elbow, right Contusion of elbow, right Right knee skin infection Knee pain Pacemaker Sinus pause Opioid use disorder COPD with acute exacerbation COPD (chronic obstructive pulmonary disease) Left knee pain Paroxysmal atrial fibrillation Knee pain Abdominal pain Smoker Neurodermatitis COPD exacerbation Scalp abscess Vaginal discharge Skin lesion Osteoarthritis of thoracic spine Anxiety Surgical History History of basal cell carcinoma (BCC) excision Mammogram declined History of bilateral cataract extraction History of ectopic History of hip replacement History of nasal surgery Family History Father No problems noted. Mother No problems noted. Social History Household Members: None Housing: House Do you presently have visiting nurse or other home services: No Alcohol intake: former Patient Tobacco Use Status: Current everyday Tobacco user Tobacco use type: Cigarette Cigarettes Per Day: 8 Years Smoked: 50 e-Cigarette/Vaping Use: Never Used Second Hand Smoke Exposure: Yes Advance Directives Date on File: 12/06/24 service: No Current occupational status: retired and disabled Cognitive needs: Yes Hearing needs: No Vision needs: No Office Procedures Cardiac Device Check Cardiac Device Check Details: Remote pacemaker report generated 06/24/2025. Pacemaker function is adequate [id number] Cardiac Device Interrogation, pacemaker Procedure code (CPT) selection complete Assessment & Plan Assessment & Plan (1) Pacemaker: Comment: Medtronic dual-chamber pacemaker placement 12/07/2021 Code(s): Z95.0 - Presence of cardiac pacemaker Category: Medical Plan: See above Coding Level of Care Code Procedure Only Diagnoses Pacemaker Z95.0 CPT Codes Cardiac Device Check - Cardiac Device 12: [id number] Cardiac Device Interrogation, pacemaker ([id number])
== END ==
PROVIDERS: PCP Internal Medicine; Visit Provider Internal Medicine Cardiovascular Disease
DX: Z45.018 Encounter for adjustment and management of other part of cardiac pacemaker (principal)
CPT/HCPCS: 93294

== ENCOUNTER 2025-07-08 13:06 | Outpatient (AMB) | payer OTHER, SELFPAY ==
--- NOTE | 2025-07-08 14:16 | MHC.OFFVIS ---
Vital Signs 07/08/25 14:17 Weight 36.287 kg Pulse 64 Pulse Source Pulse Oximeter Pulse Oximetry (%) 95 Intake Visit Reasons: MAT Allergies succinylcholine (SUCCINYLCHOLINE) Allergy (Severe, Verified 07/08/25 14:18) EXCESSIVE PARALYSIS tramadol Allergy (Intermediate, Verified 07/08/25 14:18) diarrhea, upset stomach cat dander (CATS) Allergy (Mild, Verified 07/08/25 14:18) UNKNOWN dog dander (DOGS) Allergy (Mild, Verified 07/08/25 14:18) UNKNOWN pollen extracts (POLLEN) Allergy (Mild, Verified 07/08/25 14:18) UNKNOWN gabapentin Adverse Reaction (Mild, Verified 07/08/25 14:18) Nausea and Vomiting DUST Allergy (Mild, Uncoded 06/20/25 13:42) UNKNOWN [facility] Medical History Rheumatoid arthritis Upper respiratory tract infection Skin lesion of face Skin abscess Hospital discharge follow-up Laceration of elbow, right Contusion of elbow, right Right knee skin infection Knee pain Pacemaker Sinus pause Opioid use disorder COPD with acute exacerbation COPD (chronic obstructive pulmonary disease) Left knee pain Paroxysmal atrial fibrillation Knee pain Abdominal pain Smoker Neurodermatitis COPD exacerbation Scalp abscess Vaginal discharge Skin lesion Osteoarthritis of thoracic spine Anxiety Surgical History History of basal cell carcinoma (BCC) excision Mammogram declined History of bilateral cataract extraction History of ectopic History of hip replacement History of nasal surgery Family History Father No problems noted. Mother No problems noted. Social History Household Members: None Housing: House Do you presently have visiting nurse or other home services: No Alcohol intake: former Patient Tobacco Use Status: Current everyday Tobacco user Tobacco use type: Cigarette Cigarettes Per Day: 8 Years Smoked: 50 e-Cigarette/Vaping Use: Never Used Second Hand Smoke Exposure: Yes Advance Directives Date on File: 12/06/24 service: No Current occupational status: retired and disabled Cognitive needs: Yes Hearing needs: No Vision needs: No Assessment & Plan Assessment & Plan Medications: New buprenorphine-naloxone 2-0.5 mg (Suboxone) place 1 strip/tab under (each) side of tongue 1 film sublingual DAILY 30 ea 2RF 30 days Coding
[2025-07-08 14:17] VITALS: PULSE 64; O2SAT 95
--- NOTE | 2025-07-08 14:37 | A.OFFVISCC_ITS ---
Vital Signs 07/08/25 14:17 Weight 80 lb Pulse 64 Pulse Source Pulse Oximeter Pulse Oximetry (%) 95 Intake Visit Reasons: MAT Allergies succinylcholine (SUCCINYLCHOLINE) Allergy (Severe, Verified 07/08/25 14:18) EXCESSIVE PARALYSIS tramadol Allergy (Intermediate, Verified 07/08/25 14:18) diarrhea, upset stomach cat dander (CATS) Allergy (Mild, Verified 07/08/25 14:18) UNKNOWN dog dander (DOGS) Allergy (Mild, Verified 07/08/25 14:18) UNKNOWN pollen extracts (POLLEN) Allergy (Mild, Verified 07/08/25 14:18) UNKNOWN gabapentin Adverse Reaction (Mild, Verified 07/08/25 14:18) Nausea and Vomiting DUST Allergy (Mild, Uncoded 06/20/25 13:42) UNKNOWN HPI Comments Details: History of Present Illness The patient is a 79-year-old female presenting with issues related to opioid use disorder. She is currently taking Suboxone at a dosage of 2/0.5 mg daily and reports adherence to her regimen. She states she receives a month's supply of her medication (30 strips) with two refills available and has not encountered issues with medication shortages. She denies concerns related to alertness or constipation from the medication. The patient has not identified symptoms of depression but has noted occasional lack of motivation. Financial constraints have prevented her from seeing a [facility], though she plans to investigate coverage options through her insurance. Her last medication refill was on June 13. Review of Systems - Psychiatric: Denies depression. - Gastrointestinal: Denies constipation. - Constitutional: Reports sometimes feeling unmotivated. - Neurological: Denies issues with alertness. Physical Exam - Vitals- Stable. Results Plan Patient was informed and verbally consented to the use of an ambient scribe for clinic note documentation during this visit. 1. Opioid use, unspecified, uncomplicated F11.90 The patient is managing opioid use disorder with Suboxone 2/0.5 mg daily. She is compliant and reports no adverse effects, such as altered alertness or constipation. She denies depressive symptoms. A plan for continued medication as currently prescribed is in place, and the patient will return in three months for follow-up. A three-month prescription has been issued. Discussion Notes During today's visit, I discussed primarily the management of the patient's opioid use disorder. We reviewed the benefits and risks associated with the ongoing use of Suboxone. The patient reports tolerating the current dosage well, without issues of alertness or constipation. I reinforced adherence to the prescribed regimen and provided a prescription for three months, with two refills. The patient will follow up in three months, and I advised her to notify us of any changes in her condition or if she requires assistance with insurance for counseling services. Medical Decision Making In managing the patient's opioid use disorder, the continuation of Suboxone treatment is appropriate given her stable condition without reported side effects. The patient denies experiencing any depressive symptoms, and her compliance with the prescribed regimen supports the current treatment plan's efficacy. Follow-up in three months will allow assessment of continued adherence and response to therapy. The patient expresses interest in obtaining insurance- covered counseling services, which aligns with comprehensive care recommendations. Patient Instructions - Continue taking Suboxone 2/0.5 mg daily as prescribed. - Be aware of any changes in how you feel, especially regarding mood or alertness, and report these changes. - Investigate your insurance options for accessing therapy services. - Notify me if you experience any changes or have concerns with your medication. - Attend your follow-up appointment in three months. Physical Exam Vital Signs: Last Vital Signs Pulse 64 07/08/25 14:17 Pulse Ox 95 07/08/25 14:17 REPLACED BY [facility] Medical History Rheumatoid arthritis Upper respiratory tract infection Skin lesion of face Skin abscess Hospital discharge follow-up Laceration of elbow, right Contusion of elbow, right Right knee skin infection Knee pain Pacemaker Sinus pause Opioid use disorder COPD with acute exacerbation COPD (chronic obstructive pulmonary disease) Left knee pain Paroxysmal atrial fibrillation Knee pain Abdominal pain Smoker Neurodermatitis COPD exacerbation Scalp abscess Vaginal discharge Skin lesion Osteoarthritis of thoracic spine Anxiety Surgical History History of basal cell carcinoma (BCC) excision Mammogram declined History of bilateral cataract extraction History of ectopic History of hip replacement History of nasal surgery Family History Father No problems noted. Mother No problems noted. Social History Household Members: None Housing: House Do you presently have visiting nurse or other home services: No Alcohol intake: former Patient Tobacco Use Status: Current everyday Tobacco user Tobacco use type: Cigarette Cigarettes Per Day: 8 Years Smoked: 50 e-Cigarette/Vaping Use: Never Used Second Hand Smoke Exposure: Yes Advance Directives Date on File: 12/06/24 service: No Current occupational status: retired and disabled Cognitive needs: Yes Hearing needs: No Vision needs: No Assessment & Plan Assessment & Plan (1) Opioid use disorder, moderate, in early remission, on maintenance therapy, dependence: Comment: She is doing well and has no complaints Code(s): F11.21 - Opioid dependence, in remission Category: Medical Plan per note Medications: New buprenorphine-naloxone 2-0.5 mg (Suboxone) place 1 strip/tab under (each) side of tongue 1 film sublingual DAILY 30 ea 2RF 30 days
== END 2025-07-08 14:21 | disposition home or self-care (01) ==
LOC: HO.HCC 13:06
PROVIDERS: PCP Internal Medicine; Visit Provider Internal Medicine
DX: F11.21 Opioid dependence, in remission (principal)
CPT/HCPCS: 99213

== ENCOUNTER → 2025-07-08 13:06 | Outpatient (BNVA) | payer OTHER, SELFPAY | PROVIDERS: PCP Internal Medicine; Visit Provider Internal Medicine | DX: F11.90 Opioid use, unspecified, uncomplicated (principal) | CPT/HCPCS: 99212 ==

== ENCOUNTER 2025-07-26 14:56 | Outpatient (AMB) | payer OTHER, SELFPAY ==
[2025-07-26 15:02] VITALS: BP 118/98; PULSE 108; RESP 16; TEMP 36.6; O2SAT 97; BMI 16.4
--- NOTE | 2025-07-26 15:02 | AM.OFFWIN_ITS ---
Intake Vital Signs 07/26/25 15:02 07/26/25 15:55 Height 5 ft 8 in Weight 108 lb BMI 16.4 BP 118/98 H Blood Pressure Location Rt brachial Position Sitting Respiration 16 Pulse 108 H 55 Pulse Source Pulse Oximeter Temp 97.9 F Temp Source Oral Pulse Oximetry (%) 97 Intake Visit Reasons: EP-rash in head, neck & lt side mid back Intake Note: Pt is here today c/o rash on head,neck and a spot rash on Lt sideof mid back Patient Tobacco Use Status: Current everyday Tobacco user Allergies succinylcholine (SUCCINYLCHOLINE) Allergy (Severe, Verified 07/26/25 15:03) EXCESSIVE PARALYSIS tramadol Allergy (Intermediate, Verified 07/26/25 15:03) diarrhea, upset stomach cat dander (CATS) Allergy (Mild, Verified 07/26/25 15:03) UNKNOWN dog dander (DOGS) Allergy (Mild, Verified 07/26/25 15:03) UNKNOWN pollen extracts (POLLEN) Allergy (Mild, Verified 07/26/25 15:03) UNKNOWN gabapentin Adverse Reaction (Mild, Verified 07/26/25 15:03) Nausea and Vomiting DUST Allergy (Mild, Uncoded 07/26/25 15:03) UNKNOWN HPI HPI Comments History of Present Illness Details This is a 79-year-old female with past medical history significant for neurodermatitis who presented to the walk-in clinic complaining of a burning and itchy rash to her head, neck, and left mid back. Patient states she has a instrument calibrator she follows for history of neurodermatitis; however, they have exhausted all treatment options and her instrument calibrator recommended that she see a specialist, which she has not been able to do. She states she occasionally has ?break outs? of this itchy burning rash with lesions that appear as golf balls and bleed when she showers. This current flare has lasted for several days without any significant relief. She has been utilizing her clobetasol cream as well as mupirocin cream without any significant relief. She was last seen here in April 2025 and given methylprednisolone with good relief. [facility] Medical History Rheumatoid arthritis Upper respiratory tract infection Skin lesion of face Skin abscess Hospital discharge follow-up Laceration of elbow, right Contusion of elbow, right Right knee skin infection Knee pain Pacemaker Sinus pause Opioid use disorder COPD with acute exacerbation COPD (chronic obstructive pulmonary disease) Left knee pain Paroxysmal atrial fibrillation Knee pain Abdominal pain Smoker Neurodermatitis COPD exacerbation Scalp abscess Vaginal discharge Skin lesion Osteoarthritis of thoracic spine Anxiety Surgical History History of basal cell carcinoma (BCC) excision Mammogram declined History of bilateral cataract extraction History of ectopic History of hip replacement History of nasal surgery Family History Father No problems noted. Mother No problems noted. Social History Household Members: None Housing: House Do you presently have visiting nurse or other home services: No Alcohol intake: former Patient Tobacco Use Status: Current everyday Tobacco user Tobacco use type: Cigarette Cigarettes Per Day: 8 Years Smoked: 50 e-Cigarette/Vaping Use: Never Used Second Hand Smoke Exposure: Yes Advance Directives Date on File: 12/06/24 service: No Current occupational status: retired and disabled Cognitive needs: Yes Hearing needs: No Vision needs: No Review of Systems Const All systems reviewed & are unremarkable except as noted in HPI and below Reports no additional complaints Eyes Reports no additional complaints ENT Reports no additional complaints Card Reports no additional complaints Resp Reports no additional complaints GI Reports no additional complaints Reports no additional complaints Musc Reports no additional complaints Skin/Breast Reports system reviewed and no additional complaints, except as documented Neuro Reports no additional complaints Psych Reports no additional complaints Endo Reports no additional complaints [place]/Lymph Reports no additional complaints Aller/Immun Reports no additional complaints Physical Exam Exam Exam: Vital signs reviewed. Constitutional: Non-toxic appearing. No acute distress. Well-developed and well-nourished. HEENT: Normocephalic and atraumatic. Skin: There are areas of scaling and alopecia throughout her scalp. There is a non-tender and non-fluctuant nodule on the left parietal region as well as a smaller similar lesion to the nape of her neck. There are small patches of a maculopapular erythematous rash with areas of skin breakdown on the left mid back and posterior neck. There is no purulent discharge, cellulitic changes, or lymphangitic streaking appreciated. Neck: Full and painless range of motion. No cervical lymphadenopathy. Cardio: Regular rate. No lower extremity edema. No JVD. Pulmonary: No respiratory distress. No accessory muscle usage. Gastrointestinal: Soft, nontender, and nondistended in all 4 quadrants. Musculoskeletal: Normal range of motion in joints throughout the body. No deformity or other signs of injury. Neuro: Alert and oriented x4. Cranial nerves 2-12 grossly intact. No focal deficits appreciated. Psych: Normal mood and affect. 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 Patient was given a prescription for p.o. methylprednisolone Dosepak and instructed to continue use of clobetasol and mupirocin creams as instructed by her instrument calibrator. She was instructed to follow up with her instrument calibrator on 07/29/2025 as scheduled and encouraged to establish care with the specialist as instructed by her instrument calibrator. Patient was advised to follow-up here or proceed to the emergency room if she were to develop any persistent or worsening symptoms such as purulent drainage, erythema, or fever/chills. Patient verbalized understanding and she is in agreement with the plan. Medications: New methylprednisolone PO PER PKG DIR for 6 days 21 ea 0RF Refilled mupirocin calcium 2% 1 appl topical BID 30 grams 1RF 2 weeks Coding Level of Care Code Est Pt Level 3 (59634) Diagnoses Skin lesion L98.9 Neurodermatitis L28.0
[2025-07-26 15:55] VITALS: PULSE 55
== END 2025-07-26 15:52 | disposition home or self-care (01) ==
PROVIDERS: PCP Internal Medicine; Visit Provider Physician Assistant Medical
DX: L98.9 Disorder of the skin and subcutaneous tissue, unspecified (principal); L28.0 Lichen simplex chronicus

== ENCOUNTER → 2025-07-26 14:56 | Outpatient (BNVA) | payer OTHER, SELFPAY | PROVIDERS: PCP Internal Medicine; Visit Provider Physician Assistant Medical | DX: L98.9 Disorder of the skin and subcutaneous tissue, unspecified (principal); L28.0 Lichen simplex chronicus | CPT/HCPCS: 99212 ==

== ENCOUNTER 2025-08-13 13:14 | Outpatient (REF) | payer OTHER, SELFPAY ==
--- OUTSIDE RECORDS SUMMARY | 2025-08-13 16:53 | XMS_ITS | Data Portability ---
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 [email or web address] Not available 08/10/2022 14:13:30 Plan of Treatment [...] By Organization Details Last Modified Time 03/13/2021 [id number] Today you were seen for pain in [...] can learn what is causing the pain. [email or web address] Not available 03/13/2021 21:09:52 08/08/2022 [id number] rash: care instructions [email or web address] Not available 08/10/2022 14:14:03 Thank you for yo ur visit with [employer] today. We cannot always find the exact cause of your symptoms during your initial visit. Please follow up with your primary care provider or specialist within 24-48 hours to be rechecked or seek medical attention if your symptoms do not go away or get worse. If you develop any new or worsening symptoms and need after hours care, please go to nearest ER and/or call 911. If you have additional concerns or develop a change in your condition between 8am-10pm, please call [employer] at [phone] to help navigate your care. Please seek [...] in your condition between 8am-10pm, please call [employer] at [phone] to help navigate your care. [email or web address] Not available 08/10/2022 14:12:58 Reason for Referral None Reported. Problems Name Problem SNOMED Code Status Onset Date Resolution Date Notes Provider Name and Address Organization Details Recorded Time Heart failure with normal ejection fraction 324438771 Active 2020 FEDERICO ANDERSON NP [address] [place], [address], [place] [facility] 20:24:01 Chronic obstructi ve pulmonary disease 59042807 Active 2020 FEDERICO ANDERSON NP [address] [place], [address], [place] [facility] 20:24:15 Smoker 67197254 Active 2020 FEDERICOROSALEE HERNÁNDEZRADHA, ACCESS CLINICIAN [address], [place], [place], [address], [place] [facility] 20:24:34 Pulmonary hypertens ion 06820976 Completed 202003/13/2021 FEDERICO JUSTIN, ACCESS CLINICIAN [address], [place], [address], [place] [facility] 20:25:18 Mild pulmonary hypertens ion 229248866 Active 2020 FEDERICO JUSTIN, ACCESS CLINICIAN [address], [place], [place], [address], [place] [facility] 20:25:34 Paroxysma l atrial fibrillat ion 352095339 Active 2020 FEDERICOFrancisoc ANDERSON, ACCESS CLINICIAN [address], [place], [place], [address], [place] [facility] 20:26:57 Scoliosis deformity of spine 715492202 Active 2020 FEDERICO JUSTIN, ACCESS CLINICIAN [address], [place], [place], [address], [place] [facility] 16:46:51 Gastroeso phageal reflux disease 114061144 Active 2020 FEDERICOFrancisco ANDERSON, ACCESS CLINICIAN [address], [place], [address], [place] [facility] 16:47:02 Chronic hepatitis C 400847614 Completed 202003/14/2021 FEDERICOFrancisco ANDERSON, ACCESS CLINICIAN [address] [place], [address], [place] [facility] 16:47:41 Osteoarth ritis 111449341 Active 2020 FEDERICO ANDERSON, ACCESS CLINICIAN [address], [place], [address], [place] [facility] 16:48:10 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, [address], [place] [facility] 16:49:53 Problem Notes None recorded. Procedures Surgical History Date Name Laterality Status Provider Name and Address Organization Details Recorded Time prosthetic arthroplasty of the hip completed Crys Rosasnn, GIANNA [address], [place], [address], [place] [facility] 06/14/2021 20:35:33 fluoroscopy guided cardiac ablation with contrast completed Crys Woody, GIANNA [address], [place], [address], [place] [facility] 06/14/2021 20:35:44 Imaging Results None recorded. Procedure [...] NP [address], [place], [address], [place] [facility] 16:45:41 [id number] tramadol medicatio n Not available Not available Not available 03/14/2021 98274 RxNorm FEDERICO ANDERSON NP [address], [facility] [place], [address], [place] [facility] 16:45:49 120808 succinylc holine Not available Not available Not available Not available 03/14/2021 41594 RxNorm FEDERICO ANDERSON NP [address], [facility] [place], [address], [place] [facility] 16:46:00 952524 cat dander environme nt Not available Not available Not available 03/14/2021 FEDERICO ANDERSON, GIANNA [address], [facility] [place], [address], [place] [facility] 16:46:09 652893 POLLEN EXTRACTS environme nt,medica tion Not available Not available Not available 03/14/2021 61916 6 RxNorm FEDERICO ANDERSON, ACCESS CLINICIAN [address], [facility] [place], [address], [place] [facility] 16:46:24 Medications Name [...] Heart rate Body temperature Respiratory rate Systolic And Diastolic Provider Name and Address Organization Details Last Updated DateTime 1 97 % 97 % 54 /min 97.1 [degF] 18 /min 100/60 mm[Hg] Not Available [facility] 1 20:42:04 Date Recorded Oxygen saturation Oxygen saturation in Arterial blood by Pulse oximetry Body temperature Respiratory rate Heart rate Systolic And Diastolic Provider Name and Address Organization Details Last Updated DateTime 1 96 % 96 % 98.9 [degF] 18 /min 52 /min 130/80 mm[Hg] Not Available [facility] 20:42:33 Date Recorded Oxygen saturation Oxygen saturation in Arterial blood by Pulse oximetry Heart rate Body temperature Respiratory rate Systolic And Diastolic Provider Name and Address Organization Details Last Updated DateTime 2 98 % 98 % 80 /min 97.8 [degF] 16 /min 140/80 mm[Hg] Not Available [facility] 2 17:56:46 Social History Question Answer Notes LastModified by Organizat ion Details LastModified Time Tobacco Smoking Status Current Every Day Smoker Crys Woody, GIANNA [address], [place], [address], [place] [facility] 06/14/2021 20:38:21 Do You [...] Artery Disease Y Cancer N Stroke N COPD Y Depression N Asthma N High Cholesterol N Pulmonary Embolism N Hypertension N Kidney Disease N Gynecological HistoryNo gynecological history recorded. Obstetrics History GPAL:G 0 P 0 0 0 0 Past Encounters Encounter ID Performer Location Encounter Start Date Encounter Closed Date Diagnosis/Indication Diagnosis SNOMED-CT Code Diagnosis ICD10 Code Diagnosis IMO Codes Diagnosis Note [id number] FEDERICO ANDERSON NP [facility] [address] [place] [address] 03/13/2021 20:12:42 03/17/2021 17:32:37 Pain in right knee 0593359938 88950 M25.561 Overview/H istory: Patient with h/o chronic [...] her discomfort . 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 In order to obtain further informatio n and compare any laboratory results/va lues, I have accessed patient records on the [employer]. This informatio n was pertinent in my medical decision making today. [id number] Crys Woody NP [facility] [address] [facility] [place] [address] 06/14/2021 20:32:34 06/15/2021 14:08:15 Pain of right elbow joint 6577522979 9077264 M25.521 Edema of elbow 124510158 R60.0 Overview/H istory: Patient is a 75 [...] Patient keon agrees to escort patient to [place] ER for ARTURO evaluation of probable fracture given her level of pain and inability to complete self care. [facility] ED called and report provided. Right elbow skin tear dressing changed, sling applied for comfort and to immobilize . Proper Personal Protective Equipment (PPE), including gloves, eye protection and masks were donned and doffed approprclyde olvera and all equipment cleaned using approved technique with germicidal disposable wipes prior to and after care of this patient according to Counts include 234 beds at the [facility]'s infection prevention protocols. In order to obtain further informatio n and compare any laboratory results/va lues, I have accessed old patient records. This informatio n was pertinent in my medical decision making today. Tear of skin 933451902 T 14.8XXA Pain of elbow region 743 [address] M25.521 [id number] April GIANNA L[facility] - [facility] [address] [facility] [place] [address] 08/08/2022 17:20:49 08/11/2022 06:07:43 Contact dermatitis 44289387 L25.9 Health Concerns Section Related Observation LastModified by Organization Detai ls LastModified Time None Recorded Concern Status LastModified by Organization Details LastModified Time None Recorded Advance Directives Directive N: Payers Insurance Date Sequence Insurance Name Policy Number Policy Samuel Covered Member ID Samuel Member ID Guarantor Name 08/13/2022 1 [facility] - SENIOR PLAN (MEDICARE REPLACEMENT PPO) Yamileth Sandoval [id number] Yamileth Sandoval 03/13/2021 1 [place] [employer] Yamileth Sandoval [id number] Yamileth Sandoval 09/26/2019 1 *SELF PAY* Yamileth Sandoval [id number] Yamileth Sandoval 03/13/2021 2 [place] [facility] Yamileth Sandoval [id number] Yamileth Sandoval 03/13/2021 2 [place] [facility] Yamileth Sandoval [id number] Yamileth Sandoval 03/13/2021 2 [place] [facility] Yamileth Sandoval [id number] Yamileth Sandoval 03/13/2021 2 [place] [facility] Yamileth Sandoval [id number] Yamileth Sandoval 03/13/2021 2 [place] [facility] Yamileth Sandoval [id number] Yamileth Sandoval 08/07/2022 1 [facility] PLAN (MEDICARE REPLACEMENT HMO) Yamileth Sandoval [id number] Yamileth Sandoval 03/13/2021 2 [place] [facility] Yamileth Sandoval [id number] Yamileth Sandoval 03/13/2021 1 [facility] - MEDICARE PREFERRED (MEDICARE REPLACEMENT HMO) Yamileth Sandoval [id number] Yamileth Sandoval Notes Date Note Type Note [...] comfortable. FEDERICO ANDERSON, GIANNA [address], [place], [address], [place] [facility] 03/14/2021 18:03:41 06/14/2021 text/html General HPI Temp late - DHReported by Patient Patient is a 75 year old alert [...] dependence. Crys Woody, GIANNA [address], [place], [address], [place] [facility] 06/16/2021 09:54:30 08/08/2022 text/html General HPI Temp late - DHReported by Patient 77 YO F patient established with however [...] sustained an allergic reaction. April GIANNA Lora [address] [place] [address] [address], [place], [address], [place] [facility] 08/10/2022 14:14:18 OBGyn Episode No OBEpisode recorded.
--- OUTSIDE RECORDS SUMMARY | 2025-08-13 16:53 | XMS_ITS | Data Portability ---
Author Organization [place] - [facility], Allergy Address [address] [address] Care Team Providers Care Hand Stripper Name Role Phone CHAYITOAmol SINGH JOE Primary Care Provider Assessment Encounter [...] Recorded Time Impacted cerumen in right ear 5990145831650 103 Active 2024 BHARGVA Jimenez [facility] 5 13:39:41 Otorrhagia of left ear 4810700913592 105 Active 2024 Tamara carrion [place] [facility] 13:39:46 Problem Notes None recorded. Medical Equipment [...] ICD10 Code Diagnosis IMO Codes Diagnosis Note [id number] TAMARA ALEXANDER PA-C [facility] [address] [place] [address] 11/30/2024 13:09:09 11/30/2024 13:48:48 Impacted cerumen in right ear 0183332816 189983 H61.21 Otorrhagia of left ear 0098586331 220541 H92.22 Health Concerns Section Related Observation LastModified by Organization Detai ls LastModified Time None Recorded Concern Status LastModified by Organization Details LastModified Time None Recorded Advance Directives Directive None Recorded Payers Insurance Date Sequence Insurance Name Policy Number Policy Samuel Covered Member ID Samuel Member ID Guarantor Name 01/04/2025 1 [facility] - SENIOR PLAN (MEDICARE SUPPLEMENT) Yamileth Kuonofre [id number] Yamileth Lori 11/30/2024 2 [place] Yamileth Lori [id number] Yamileth Lori 12/13/2024 1 [facility] - SENIOR PLAN (MEDICARE REPLACEMENT HMO) Yamileth Lori [id number] Yamileth Lori 12/07/2024 2 [place] [employer] Yamileth Lori [id number] Yamileth Lori 01/04/2025 1 [facility] - SENIOR PLAN (MEDICARE REPLACEMENT PPO) Yamileth Lori [id number] Yamileth Kuonofre Notes Date Note Type Note Provider Name and Address Organization Details Recorded Time 11/30/2024 text/html ROS as noted in the HPI 79 year old female presents for evaluation of the ears. She [...] is some watery drainage. No blood recently. Tamara carrion [place] - [facility] 11/30/2024 14:00:30 OBGyn Episode No OBEpisode recorded.
== END 2025-08-13 13:15 | disposition home or self-care (01) ==
LOC: HO.US 13:14
PROVIDERS: PCP Internal Medicine; Visit Provider Internal Medicine
DX: K40.90 Unilateral inguinal hernia, without obstruction or gangrene, not specified as recurrent (principal)
CPT/HCPCS: 76857

== ENCOUNTER → 2025-08-13 13:17 | Outpatient (BNV) | payer OTHER, SELFPAY | PROVIDERS: PCP Internal Medicine; Visit Provider Radiology Diagnostic Radiology | DX: K40.90 Unilateral inguinal hernia, without obstruction or gangrene, not specified as recurrent (principal) | CPT/HCPCS: 76857 ==

== ENCOUNTER 2025-08-14 11:49 | Outpatient (AMB) | payer OTHER, SELFPAY ==
--- NOTE | 2025-08-14 11:51 | MHC.OFFWIV ---
Intake Vital Signs 08/14/25 11:52 Height 5 ft 8 in Weight 108 lb BMI 16.4 BP 120/86 Blood Pressure Location Rt brachial Position Sitting Temp 97.9 F Temp Source Oral Pulse Oximetry (%) 96 Oxygen Delivery Method Room Air Intake Visit Reasons: EP Itching/burning on head and neck, cough Intake Note: EP complains of chronic sore throat with brown color sputum, eyes irritation, pain over her head and neck as well as feeling hot over her face. The symtoms have been for years. Patient Tobacco Use Status: Current everyday Tobacco user Allergies succinylcholine (SUCCINYLCHOLINE) Allergy (Severe, Verified 08/14/25 12:05) EXCESSIVE PARALYSIS tramadol Allergy (Intermediate, Verified 08/14/25 12:05) diarrhea, upset stomach cat dander (CATS) Allergy (Mild, Verified 08/14/25 12:05) UNKNOWN dog dander (DOGS) Allergy (Mild, Verified 08/14/25 12:05) UNKNOWN pollen extracts (POLLEN) Allergy (Mild, Verified 08/14/25 12:05) UNKNOWN gabapentin Adverse Reaction (Mild, Verified 08/14/25 12:05) Nausea and Vomiting DUST Allergy (Mild, Uncoded 07/26/25 15:03) UNKNOWN Do you need a note to return to daycare/school/sports/work: No HPI HPI Comments History of Present Illness Details History of Present Illness - The patient is a 80-year-old female presenting with worsening congestion and productive cough. - Chronic Obstructive Pulmonary Disease (COPD) is stable despite recent respiratory symptoms. - Congestion and productive cough started about one and a half weeks ago, with brown thick mucus production. - The patient denies fever but has an intermittent sore throat, likely from coughing. - The patient is reducing cigarette consumption in an attempt to quit smoking. - A fractured eardrum was noted a few months ago due to water exposure during hair washing. - She denies fever, chills, ORTIZ, CP, SOB, or wheezing. neurodermatitis - Neurodermatitis is managed with clobetasol cream. - She was recently prescribed prednisone taper with effective symptom relief but flares recur upon discontinuation. - She states that she can't get into her patient registration representative and she wants more prednisone. - She has been having pain on her scalp. - She has a constant burning pain and wants pain medications. Physical Exam General: Cooperative, healthy appearing, comfortable, no acute distress and well developed Orientation: Patient oriented x3 Limitations: No limitations Head: Normal to inspection Ears: Hearing grossly normal bilaterally. TM are normal, bony landmarks are clear. Nose: Normal external nose present Face and sinus: Normal facial exam. No sinus tenderness noted. Eyes: Appearance normal, both eyes and all related structures Neck: Normal visual inspection and Yes full ROM. No lymphadenopathy noted. Respiratory: Normal respiratory effort and able to speak in complete sentences. Clear to auscultation bilaterally. No w/r/r noted. Cardiovascular: Regular rate and rhythm. Normal S1 and S2. No m/r/g noted. Skin: No rashes or lesions noted. Areas of alopecia noted on the scalp. Neurodermatitis noted on the scalp. No discharge noted. Patient was informed and verbally consented to the use of an ambient scribe for clinic note documentation during this visit. [facility] Medical History Rheumatoid arthritis Upper respiratory tract infection Skin lesion of face Skin abscess Hospital discharge follow-up Laceration of elbow, right Contusion of elbow, right Right knee skin infection Knee pain Pacemaker Sinus pause Opioid use disorder COPD with acute exacerbation COPD (chronic obstructive pulmonary disease) Left knee pain Paroxysmal atrial fibrillation Knee pain Abdominal pain Smoker Neurodermatitis COPD exacerbation Scalp abscess Vaginal discharge Skin lesion Osteoarthritis of thoracic spine Anxiety Surgical History History of basal cell carcinoma (BCC) excision Mammogram declined History of bilateral cataract extraction History of ectopic History of hip replacement History of nasal surgery Family History Father No problems noted. Mother No problems noted. Social History Household Members: None Housing: House Do you presently have visiting nurse or other home services: No Alcohol intake: former Patient Tobacco Use Status: Current everyday Tobacco user Tobacco use type: Cigarette Cigarettes Per Day: 8 Years Smoked: 50 e-Cigarette/Vaping Use: Never Used Second Hand Smoke Exposure: Yes Advance Directives Date on File: 12/06/24 service: No Current occupational status: retired and disabled Cognitive needs: Yes Hearing needs: No Vision needs: No Review of Systems Const All systems reviewed & are unremarkable except as noted in HPI and below Physical Exam Vital Signs: Last Vital Signs Temp 97.9 F 08/14/25 11:52 BP 120/86 08/14/25 11:52 Pulse Ox 96 08/14/25 11:52 Oxygen Delivery Method Room Air 08/14/25 11:52 BMI result Body Mass Index 16.4 Assessment & Plan Assessment & Plan (1) Neurodermatitis: 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 Neurodermatitis - Continue clobetasol cream for symptom management. - Discuss long-term management with patient registration representative during upcoming appointment. - Will not be prescribing any narcotics for this pain. - will refill the prednisone dosepak 2. Chronic Obstructive Pulmonary Disease (Copd) - Prescribed antibiotics to prevent potential infection due to productive cough. - Encourage smoking cessation efforts. - Prescribed cough medication to manage symptoms. - Continue with inhalers - follow up with PCP Medications: New doxycycline hyclate 100 mg PO BID 14 tabs 0RF methylprednisolone PO PER PKG DIR for 6 days 21 ea 0RF benzonatate 200 mg PO .QHS PRN 10 caps 0RF cough Coding Level of Care Code Est Pt Level 4 (86853) Diagnoses Neurodermatitis L28.0 Cough R05.9
[2025-08-14 11:52] VITALS: BP 120/86; TEMP 36.6; O2SAT 96; BMI 16.4
--- OUTSIDE RECORDS SUMMARY | 2025-08-14 15:11 | XMS_ITS | Encounter Summary ---
Author Organization [facility] Address [address] [facility] [address] [place] [address] Phone Care Team Providers Care Plant Engineering Manager Name Role Phone Pcp, Unknown Primary Care Provider Unavailabl e Encounter Details Date Type Department Care Team (Late st Contact Info) Description 08/20/[address] [facility] [address] [address] [email or web address] Social History Tobacco Use Types Packs/Day [...] on filedocumented in this encounter Care Teams Plant Engineering Manager Relationship Specialty Start Date End Date Pcp, Unknown PCP - General 06/22/22 documented as of this encounter Additional Source Comments The information contained in this document represents components of the legal health record. It is not the complete legal health record.[facility]
--- OUTSIDE RECORDS SUMMARY | 2025-08-14 15:11 | XMS_ITS | Clinical Summary ---
Author Organization [facility] Address [address] [address] Phone Care Team Providers Care Interline Clerk Name Role Phone Pcp, Unknown Primary Care [...] file Insurance MEDICARE PART A & B [facility] MEDICARE REPLACEMENT MEDICARE PART A & B [facility] MEDICARE REPLACEMENT MEDICARE PART A & B [facility] MEDICARE REPLACEMENT [place] [id number] MEDICARE PART A & B [facility] MEDICARE REPLACEMENT MEDICARE PART A & B Member Subscriber Plan / Payer (Ef fective 1990-Present) Name:Yamileth Sandoval Member ID:[id number] Relation to Subscriber:Self Name:Yamileth Sandoval Subscriber ID:[id number] Payer ID:[id number] Group ID:Not on file Type:Medicare Address: [employer] [address] [address] [facility] MEDICARE REPLACEMENT FARZANEH ASH [id number] MEDICARE PART A & B [facility] MEDICARE REPLACEMENT MEDICARE PART A & B [facility] MEDICARE REPLACEMENT MEDICARE PART A & B [facility] MEDICARE REPLACEMENT MEDICARE PART A & B [facility] MEDICARE REPLACEMENT [place] ASH [id number] Care Teams Interline Clerk Relationship Specialty Start Date End Date Pcp, Unknown PCP - General 06/22/22 Additional Source Comments The information contained in this document represents components of the legal health record. It is not the complete legal health record.[facility]
== END 2025-08-14 12:38 | disposition home or self-care (01) ==
PROVIDERS: PCP Internal Medicine; Visit Provider Physician Assistant Medical
DX: L28.0 Lichen simplex chronicus (principal); R05.9 Cough, unspecified

== ENCOUNTER → 2025-08-14 11:49 | Outpatient (BNVA) | payer OTHER, SELFPAY | PROVIDERS: PCP Internal Medicine; Visit Provider Physician Assistant Medical | DX: L28.0 Lichen simplex chronicus (principal); J44.9 Chronic obstructive pulmonary disease, unspecified; R05.9 Cough, unspecified; J02.9 Acute pharyngitis, unspecified | CPT/HCPCS: 99212 ==

== ENCOUNTER → 2025-10-02 15:04 | Outpatient (BNV) | payer OTHER, SELFPAY | PROVIDERS: PCP Internal Medicine; Visit Provider Internal Medicine Cardiovascular Disease | DX: Z45.018 Encounter for adjustment and management of other part of cardiac pacemaker (principal) | CPT/HCPCS: 93294 ==

== ENCOUNTER 2025-10-14 13:35 | Outpatient (AMB) | payer OTHER, SELFPAY ==
[2025-10-14 13:49] VITALS: BP 136/76; PULSE 88; O2SAT 96
--- NOTE | 2025-10-14 13:49 | MHC.AM.SUB ---
Vital Signs 10/14/25 13:49 BP 136/76 Pulse 88 Pulse Oximetry (%) 96 Intake Visit Reasons: MAT Allergies succinylcholine (SUCCINYLCHOLINE) Allergy (Severe, Verified 10/14/25 13:50) EXCESSIVE PARALYSIS tramadol Allergy (Intermediate, Verified 10/14/25 13:50) diarrhea, upset stomach cat dander (CATS) Allergy (Mild, Verified 10/14/25 13:50) UNKNOWN dog dander (DOGS) Allergy (Mild, Verified 10/14/25 13:50) UNKNOWN pollen extracts (POLLEN) Allergy (Mild, Verified 10/14/25 13:50) UNKNOWN gabapentin Adverse Reaction (Mild, Verified 10/14/25 13:50) Nausea and Vomiting DUST Allergy (Mild, Uncoded 10/14/25 13:50) UNKNOWN HPI Comments Details: History of Present Illness The patient is a 80 year old female presenting for management of opioid use disorder. She is being treated with buprenorphine/naloxone 2/0.5 mg taken once daily and reports good adherence, with no lost or forgotten pills. She states she is tolerating the medication well. Her medical history is significant for anxiety, for which she takes a benzodiazepine. She has a head lesion for which she is under the care of a net software engineer. She denies constipation and depression. Results - Urine toxicology screen: Positive for benzodiazepine and buprenorphine, which is consistent with her reported medications. Review of Systems Narrative Review of Systems - Constitutional: Reports feeling well. - Psychiatric: Reports some anxiety. Denies depression. - Integumentary: Reports a head lesion. - Gastrointestinal: Denies constipation. Physical Exam Exam Exam: Physical Exam - General: Patient's vital signs are stable. Vital Signs: Last Vital Signs Pulse 88 10/14/25 13:49 BP 136/76 10/14/25 13:49 Pulse Ox 96 10/14/25 13:49 Results AMB 14 Panel Urine Drug Screen Urine Marijuana (THC) Negative Last Edit by Manjinder Ortiz CMA on 10/14/25 14:03 Urine Cocaine Negative Last Edit by Manjinder Ortiz CMA on 10/14/25 14:03 Urine Morphine Negative Last Edit by Manjinder Ortiz CMA on 10/14/25 14:03 Urine Methamphetamine Negative Last Edit by Manjinder Ortiz CMA on 10/14/25 14:03 Urine Amphetamine Negative Last Edit by Manjinder Ortiz CMA on 10/14/25 14:03 Urine Benzodiazepine Positive Last Edit by Manjinder Ortiz CMA on 10/14/25 14:03 Urine Barbiturates Negative Last Edit by Manjinder Ortiz, FELIX on 10/14/25 14:03 Urine Methadone Negative Last Edit by Manjinder Ortiz, FELIX on 10/14/25 14:03 Urine Buprenorphine Positive Last Edit by Manjinder Ortiz, FELIX on 10/14/25 14:03 Urine Tricyclic Antidepressant Negative Last Edit by Manjinder Ortiz, FELIX on 10/14/25 14:03 Urine MDMA Negative Last Edit by Manjinder Ortiz CMA on 10/14/25 14:03 Urine Oxycodone Negative Last Edit by Manjinder Ortiz CMA on 10/14/25 14:03 Urine Phencyclidine Negative Last Edit by Manjinder Ortiz CMA on 10/14/25 14:03 Urine Propoxyphene Negative Last Edit by Manjinder Ortiz CMA on 10/14/25 14:03 Results Reviewed Results Reviewed: Laboratory Last Values POC Urine Buprenorphine Positive 10/14/25 14:01 POC Urine Morphine Negative 10/14/25 14:01 POC Urine Oxycodone Negative 10/14/25 14:01 POC Urine Methadone Negative 10/14/25 14:01 POC Urine Propoxyphene Negative 10/14/25 14:01 POC Urine Barbiturates Negative 10/14/25 14:01 POC U Tricyclic Antidpr Negative 10/14/25 14:01 POC Urine PCP Negative 10/14/25 14:01 POC Ur Amphetamines Negative 10/14/25 14:01 POC Ur Methamphetamine Negative 10/14/25 14:01 POC Urine MDMA Negative 10/14/25 14:01 POC Ur Benzodiazepine Positive 10/14/25 14:01 POC Urine Cocaine Negative 10/14/25 14:01 POC Ur Marijuana (THC) Negative 10/14/25 14:01 [facility] Medical History Rheumatoid arthritis Upper respiratory tract infection Skin lesion of face Skin abscess Hospital discharge follow-up Laceration of elbow, right Contusion of elbow, right Right knee skin infection Knee pain Pacemaker Sinus pause Opioid use disorder COPD with acute exacerbation COPD (chronic obstructive pulmonary disease) Left knee pain Paroxysmal atrial fibrillation Knee pain Abdominal pain Smoker Neurodermatitis COPD exacerbation Scalp abscess Vaginal discharge Skin lesion Osteoarthritis of thoracic spine Anxiety Surgical History History of basal cell carcinoma (BCC) excision Mammogram declined History of bilateral cataract extraction History of ectopic History of hip replacement History of nasal surgery Family History Father No problems noted. Mother No problems noted. Social History Household Members: None Housing: House Do you presently have visiting nurse or other home services: No Alcohol intake: former Patient Tobacco Use Status: Current everyday Tobacco user Tobacco use type: Cigarette Cigarettes Per Day: 8 Years Smoked: 50 e-Cigarette/Vaping Use: Never Used Second Hand Smoke Exposure: Yes Advance Directives Date on File: 12/06/24 service: No Current occupational status: retired and disabled Cognitive needs: Yes Hearing needs: No Vision needs: No Assessment & Plan Assessment & Plan (1) Anxiety: Code(s): F41.9 - Anxiety disorder, unspecified Category: Medical (2) Alcohol use disorder, moderate, dependence: Comment: She has been not drinking alcohol. Code(s): F10.20 - Alcohol dependence, uncomplicated Category: Medical (3) Opioid use disorder, moderate, in early remission, on maintenance therapy, dependence: Comment: She is doing well and has no complaints Code(s): F11.21 - Opioid dependence, in remission Category: Medical Plan Plan Patient was informed and verbally consented to the use of an ambient scribe for clinic note documentation during this visit. 1. Opioid use, unspecified, uncomplicated F11.90 The patient is tolerating Suboxone 2/0.5 mg daily well. The current dose will be continued, and a one-month prescription with two refills was provided. Follow-up is scheduled in three months. 2. Anxiety disorder, unspecified F41.9 The patient reports some anxiety and takes a benzodiazepine. No changes were made to her anxiety management at this visit. 3. Head Lesion The patient has a head lesion and is currently being seen by dermatology for this issue. Discussion Notes I have reviewed the patient's case and her current status. Given that she is stable and tolerating her Suboxone 2/0.5 mg daily well, the plan is to continue this regimen. I have provided a one-month prescription with two refills and have scheduled a follow-up appointment in three months to reassess her. Medical Decision Making The patient is a 80-year-old female with a diagnosis of opioid use disorder, who presents for continued management. She is stable on her current dose of buprenorphine/naloxone 2/0.5 mg daily, reporting good adherence and tolerance. Her urine toxicology screen confirmed the presence of buprenorphine and a benzodiazepine, consistent with her prescribed medications. Given her stability, the decision was made to continue her current treatment without changes. A three-month supply of medication was provided via one-month script with two refills to ensure continuity of care, with a plan for follow-up in three months. Other active issues include a head lesion being managed by dermatology and anxiety. Patient Instructions - Continue taking your Suboxone (buprenorphine/naloxone) 2/0.5 mg film once a day as prescribed. - A new one-month prescription with two refills has been sent to your pharmacy. - Please return for your next follow-up appointment in three months. - Continue to see your net software engineer for the lesion on your head. Orders: Orders AMB 14 Panel Urine Drug Screen Today Z51.81 - Encounter for therapeutic drug level monitoring Fentanyl, urine Today F10.20 - Alcohol dependence, uncomplicated Medications: New buprenorphine-naloxone 2-0.5 mg (Suboxone) place 1 strip/tab under (each) side of tongue 1 film sublingual DAILY 30 ea 2RF 30 days
--- OUTSIDE RECORDS SUMMARY | 2025-10-14 15:44 | XMS_ITS | Data Portability ---
Author Organization [place] - [facility], Allergy Address [address] [address] Care Team Providers Care Pipe Welder Name Role Phone CHAYITOAmol SINGH JOE Primary Care Provider [phone] Assessment Encounter Date Assessment Date Assessment LastModified [...] Recorded Time Impacted cerumen in right ear 8482568722300 103 Active 2024 BHARGAV Jimenez [facility] 5 13:39:41 Otorrhagia of left ear 7092021446262 105 Active 2024 Tamara carrion [place] [facility] 13:39:46 Problem Notes None recorded. Medical Equipment [...] ICD10 Code Diagnosis IMO Codes Diagnosis Note [id number] TAMARA ALEXANDER PA-C [facility] [address] [place] [address] 11/30/2024 13:09:09 11/30/2024 13:48:48 Impacted cerumen in right ear 9143796932 447096 H61.21 Otorrhagia of left ear 9048709064 582936 H92.22 Health Concerns Section Related Observation LastModified by Organization Detai ls LastModified Time None Recorded Concern Status LastModified by Organization Details LastModified Time None Recorded Advance Directives Directive None Recorded Payers Insurance Date Sequence Insurance Name Policy Number Policy Samuel Covered Member ID Samuel Member ID Guarantor Name 01/04/2025 1 [employer] - SENIOR PLAN (MEDICARE SUPPLEMENT) Yamileth Kuonofre [id number] Yamileth Lori 11/30/2024 2 [place] Yamileth Lori [id number] Yamileth Lori 12/13/2024 1 [facility] - SENIOR PLAN (MEDICARE REPLACEMENT HMO) Yamileth Lori [id number] Yamileth Lori 12/07/2024 2 [place] [employer] Yamileth Lori [id number] Yamileth Lori 01/04/2025 1 [facility] - SENIOR PLAN (MEDICARE REPLACEMENT PPO) Yamileth Lori [id number] Yamileth Kuonofre Notes Date Note Type Note [...] carrion [place] - [facility] 11/30/2024 14:00:30 OBGyn Episode No OBEpisode recorded.
--- OUTSIDE RECORDS SUMMARY | 2025-10-14 15:44 | XMS_ITS | Encounter Summary ---
Author Organization [facility] Address [address] [facility] [address] [place] [address] Phone Care Team Providers Care Senior Planning Manager Name Role Phone Pcp, Unknown Primary Care Provider Unavailabl e Encounter Details Date Type Department Care Team (Late st Contact Info) Description 08/20/2022 Telephone [facility] [address] [address] [email or web address] Social History Tobacco Use Types Packs/Day [...] filedocumented in this encounter Care Teams Senior Planning Manager Relationship Specialty Start Date End Date Pcp, Unknown PCP - General 06/22/22 documented as of this encounter Additional Source Comments The information contained in this document represents components of the legal health record. It is not the complete legal health record.[facility]
--- OUTSIDE RECORDS SUMMARY | 2025-10-14 15:44 | XMS_ITS | Clinical Summary ---
Author Organization [facility] Address [address] [address] Phone Care Team Providers Care Button Puncher Name Role Phone Pcp, Unknown Primary Care [...] file Insurance MEDICARE PART A & B [facility] MEDICARE REPLACEMENT MEDICARE PART A & B [facility] MEDICARE REPLACEMENT MEDICARE PART A & B [facility] MEDICARE REPLACEMENT [place] [phone] MEDICARE PART A & B [facility] MEDICARE REPLACEMENT MEDICARE PART A & B Member Subscriber Plan / Payer (Ef fective 1990-Present) Name:Yamileth Sandoval Member ID:[id number] Relation to Subscriber:Self Name:Yamileth Sandoval Subscriber ID:[id number] Payer ID:[id number] Group ID:Not on file Type:Medicare Address: [place] [address] [address] [facility] MEDICARE REPLACEMENT [place] ASH [id number] MEDICARE PART A & B [facility] MEDICARE REPLACEMENT MEDICARE PART A & B [facility] MEDICARE REPLACEMENT MEDICARE PART A & B [facility] MEDICARE REPLACEMENT MEDICARE PART A & B [facility] MEDICARE REPLACEMENT [place] [id number] Care Teams Button Puncher Relationship Specialty Start Date End Date Pcp, Unknown PCP - General 06/22/22 Additional Source Comments The information contained in this document represents components of the legal health record. It is not the complete legal health record.[facility]
--- OUTSIDE RECORDS SUMMARY | 2025-10-14 15:44 | XMS_ITS | Data Portability ---
Author Organization [place] - [facility] Address [address] [place] [address] Care Team Providers Care Education Faculty Member Name Role Phone JOE SHELBY Primary Care Provider [phone] [facility] OTHER [facility] OTHER Assessment Encounter Date Assessment Date [...] questions were answered prior to team departure. [email or web address] Not available 08/10/2022 14:13:30 Plan of Treatment [...] By Organization Details Last Modified Time 03/13/2021 [id number] Today you were seen for pain in [...] pain. [email or web address] Not available 03/13/2021 21:09:52 08/08/2022 [id number] rash: care instructions [email or web address] Not available 08/10/2022 14:14:03 Thank you for yo ur visit with [facility] today. We cannot always find the exact [...] in your condition between 8am-10pm, please call [facility] at [phone] to help navigate your care. Please seek [...] in your condition between 8am-10pm, please call [facility] at [phone] to help navigate your care. [email or web address] Not available 08/10/2022 14:12:58 Reason for Referral None Reported. Problems Name Problem SNOMED Code Status Onset Date Resolution Date Notes Provider Name and Address Organization Details Recorded Time Heart failure with normal ejection fraction 788790865 Active 2020 FEDERICO ANDERSON NP [address] [place], [address], [place] [facility] 20:24:01 Chronic obstructi ve pulmonary disease 97833834 Active 2020 FEDERICO ANDERSON NP [address] [place], [address], [place] [facility] 20:24:15 Smoker 97546249 Active 2020 FEDERICOROSALEE HERNÁNDEZRADHA, HEAD WRESTLING COACH [address], [place], [place], [address], [place] [facility] 20:24:34 Pulmonary hypertens ion 89203543 Completed 202003/13/2021 FEDERICO JUSTIN, HEAD WRESTLING COACH [address], [place], [address], [place] [facility] 20:25:18 Mild pulmonary hypertens ion 680600131 Active 2020 FEDERICO JUSTIN, HEAD WRESTLING COACH [address], [place], [place], [address], [place] [facility] 20:25:34 Paroxysma l atrial fibrillat ion 926080627 Active 2020 FEDERICOFrancisco ANDERSON, HEAD WRESTLING COACH [address], [place], [place], [address], [place] [facility] 20:26:57 Scoliosis deformity of spine 028439136 Active 2020 FEDERICO JUSTIN, HEAD WRESTLING COACH [address], [place], [place], [address], [place] [facility] 16:46:51 Gastroeso phageal reflux disease 558578473 Active 2020 FEDERICOFrancisco ANDERSON, HEAD WRESTLING COACH [address], [place], [address], [place] [facility] 16:47:02 Chronic hepatitis C 353898317 Completed 202003/14/2021 FEDERICOFrancisco ANDERSON, HEAD WRESTLING COACH [address] [place], [address], [place] [facility] 16:47:41 Osteoarth ritis 629671252 Active 2020 FEDERICO ANDERSON, HEAD WRESTLING COACH [address], [place], [address], [place] [facility] 16:48:10 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 Procedures Surgical History Date Name Laterality Status Provider Name and Address Organization Details Recorded Time prosthetic arthroplasty of the hip completed Crys Rosasnn, GIANNA [address], [place], [address], [place] [facility] 06/14/2021 20:35:33 fluoroscopy guided cardiac ablation with contrast completed Crys Woody, GIANNA [address], [place], [address], [place] [facility] 06/14/2021 20:35:44 Imaging Results None recorded. Procedure [...] NP [address], [place], [address], [place] [facility] 16:45:41 [id number] tramadol medicatio n Not available Not available Not available 03/14/2021 49631 RxNorm FEDERICO ANDERSON NP [address], [place], [address], [place] [facility] 16:45:49 065330 succinylc holine Not available Not available Not available Not available 03/14/2021 58852 RxNorm FEDERICO ANDERSON NP [address], [place], [address], [place] [facility] 16:46:00 813715 cat dander environme nt Not available Not available Not available 03/14/2021 FEDERICO ANDERSON, GIANNA [address], [facility] [place], [address], [place] [facility] 16:46:09 020458 POLL[employer] EXTR[employer]S environme nt,medica tion Not available Not available Not available 03/14/2021 30906 6 RxNorm FEDERICO ANDERSON, HEAD WRESTLING COACH [address], [place], [address], [place] [facility] 16:46:24 Medications Name [...] t Available Vitals Date Recorded Oxygen saturation Heart rate Body temperature Respiratory rate Systolic And Diastolic Provider Name and Address Organization Details Last Updated DateTime 1 97 % 54 /min 97.1 [degF] 18 /min 100/60 mm[Hg] Not Available [facility] 1 20:42:04 Date Recorded Oxygen saturation Body temperature Respiratory rate Heart rate Systolic And Diastolic Provider Name and Address Organization Details Last Updated DateTime 1 96 % 98.9 [degF] 18 /min 52 /min 130/80 mm[Hg] Not Available [facility] 1 20:42:33 Date Recorded Oxygen saturation Heart rate Body temperature Respiratory rate Systolic And Diastolic Provider Name and Address Organization Details Last Updated DateTime 98 % 80 /min 97.8 [degF] 16 /min 140/80 mm[Hg] Not Available [facility] 17:56:46 Social History Question Answer Notes LastModified by Organizat ion Details LastModified Time Tobacco Smoking Status Current Every Day Smoker Crys Woody, GIANNA [address] [facility] [place], [address], [place] [facility] 06/14/2021 20:38:21 Do You [...] Visiting Friends Or Family Or Going To [employer] Or Club Meetings) 1 Or 2 Times [...] N Cancer N Hypertension N Stroke N COPD Y Depression N Asthma N Kidney Disease N Gynecological HistoryNo gynecological history recorded. Obstetrics History GPAL:G 0 P 0 0 0 0 Past Encounters Encounter ID Performer Location Encounter Start Date Encounter Closed Date Diagnosis/Indication Diagnosis SNOMED-CT Code Diagnosis ICD10 Code Diagnosis IMO Codes Diagnosis Note [id number] FEDERICO ANDERSON NP [facility] [address] [place] [address] 03/13/2021 20:12:42 03/17/2021 17:32:37 Pain in right knee 5432143843 37905 M25.561 Overview/H istory: Patient with h/o chronic [...] her discomfort . She agrees to discuss long-term pain management with her PCP and pain management provider. In order to obtain further informatio n and compare any laboratory results/va lues, I have accessed patient records on the [place] [employer] [facility] [employer]. This informatio n was pertinent in my medical decision making today. [id number] Crys Woody NP [facility] [address] [facility] [place] [address] 06/14/2021 20:32:34 06/15/2021 14:08:15 Pain of right elbow joint 9805236322 0644165 M25.521 Edema of elbow 444790899 R60.0 Overview/H istory: Patient is a 75 [...] Patient keon agrees to escort patient to [place] ER for ARTURO evaluation of probable fracture given her level of pain and inability to complete self care. [facility] ED called and report provided. Right elbow skin tear dressing changed, sling applied for comfort and to immobilize . Proper Personal Protective Equipment (PPE), including gloves, eye protection and masks were donned and doffed ignacio olvera and all equipment cleaned using approved technique with germicidal disposable wipes prior to and after care of this patient according to [facility]'s infection prevention protocols. In order to obtain further informatio n and compare any laboratory results/va lues, I have accessed old patient records. This informatio n was pertinent in my medical decision making today. Tear of skin 953474887 T 14.8XXA Pain of elbow region 743 [address]256 M25.521 [id number] April GIANNA Lora [facility] [address] [facility] [place] [address] 08/08/2022 17:20:49 08/11/2022 06:07:43 Contact dermatitis 90883149 L25.9 Health Concerns Section Related Observation LastModified by Organization Detai ls LastModified Time None Recorded Concern Status LastModified by Organization Details LastModified Time None Recorded Advance Directives Directive N: Payers Insurance Date Sequence Insurance Name Policy Number Policy Samuel Covered Member ID Samuel Member ID Guarantor Name 08/13/2022 1 [facility] - SENIOR PLAN (MEDICARE REPLACEMENT PPO) Yamileth Sandoval [id number] Yamileth Szminesh 03/13/2021 1 [place] [employer] Yamileth Sandoval [id number] Yamileth Sandoval 09/26/2019 1 *SELF PAY* Yamileth Sandoval [id number] Yaimleth Sandoval 03/13/2021 2 [place] [facility] Yamileth Sandoval [id number] Yamileth Nilay 03/13/2021 2 [place] [facility] Yamileth Pemberton [id number] Yamileth Sandoval 03/13/2021 2 [place] [facility] Yamileth Sandoval [id number] Yamileth Szminesh 03/13/2021 2 [place] [facility] Yamileth Nilay [id number] Yamileth Sandoval 03/13/2021 2 [place] [facility] Yamileth Sandoval [id number] Yamileth Sandoval 08/07/2022 1 [facility] SENIOR PLAN (MEDICARE REPLACEMENT HMO) Yamileth Sandoval [id number] Yamileth Sandoval 03/13/2021 2 [place] [facility] Yamileth Sandoval [id number] Yamileth Sandoval 03/13/2021 1 [facility] - MEDICARE PREFERRED (MEDICARE REPLACEMENT HMO) Yamileth Sandoval [id number] Yamileth Sandoval Notes Date Note Type Note [...] taking oxycodone prescribed by Dr Price at [facility] who manages her chronic pain and has [...] comfortable. FEDERICO ANDERSON, GIANNA [address], [place], [address], [place] [facility] 03/14/2021 18:03:41 06/14/2021 text/html [...] dependence. Crys Woody, GIANNA [address], [place], [address], [place] [facility] 06/16/2021 09:54:30 08/08/2022 text/html [...] however she sustained an allergic reaction. Stephie Lroa NP [address], [place], [address], [place] [facility] 08/10/2022 14:14:18 OBGyn Episode No OBEpisode recorded.
== END 2025-10-14 14:11 | disposition home or self-care (01) ==
LOC: HO.HCC 13:35
PROVIDERS: PCP Internal Medicine; Visit Provider Internal Medicine
DX: F41.9 Anxiety disorder, unspecified (principal); F10.20 Alcohol dependence, uncomplicated; F11.21 Opioid dependence, in remission; Z51.81 Encounter for therapeutic drug level monitoring
CPT/HCPCS: 99213

== ENCOUNTER 2025-10-14 13:35 | Outpatient (REF) | payer OTHER, SELFPAY | END 2025-10-14 13:36 | disposition home or self-care (01) | LOC: HO.LNP 13:35 | PROVIDERS: PCP Internal Medicine; Visit Provider Internal Medicine | DX: F10.20 Alcohol dependence, uncomplicated (principal); F11.21 Opioid dependence, in remission; F41.9 Anxiety disorder, unspecified; Z79.899 Other long term (current) drug therapy; Z51.81 Encounter for therapeutic drug level monitoring | CPT/HCPCS: 80307; 99212 ==